=== PATIENT | male | born 1960 | race Caucasian/White ===

== ENCOUNTER 2018-01-18 14:44 | Outpatient (CLI) | payer MEDICARE, SELFPAY ==
--- NOTE | 2018-01-18 13:38 | DI.RAD_ITS ---
SYMPTOMS/DIAGNOSIS: PAIN, S/P FALL, ANKYLOSING SPONDYLITIS, DORSALGIA, CERVICALGIA, M54.9, M45.9, M54.2 CERVICAL SPINE: Five views were obtained. The intervertebral disc spaces are well maintained. The alignment appears within normal limits. Minimal endplate and facet spurring noted consistent with the patient's age. The neural foramina appear well maintained on oblique views. CONCLUSION: Essentially negative examination of the cervical spine. THORACIC SPINE: Three views were obtained. There is mild disc space narrowing throughout the thoracic spine. Minimal endplate spurring noted throughout the thoracic spine. No evidence of compression fracture. CONCLUSION: Essentially negative thoracic spine except for degenerative changes. LUMBOSACRAL SPINE: Five views were obtained. The patient reportedly has a history of ankylosing spondylitis. There appears to be bilateral SI joint fusion, incomplete on the left. The intervertebral disc spaces are well maintained. There is an anterior osteophyte of L 4 vertebral body superior body endplate which may be associated with an old injury. Otherwise the bones appear essentially intact. No evidence of spondylolysis or spondylolisthesis. CONCLUSION: Bilateral SI joint fusion in a patient with history of ankylosing spondylitis. No significant additional findings.
== END 2018-01-18 15:04 ==
PROVIDERS: PCP Nurse Practitioner; Visit Provider Nurse Practitioner
DX: S19.9XXA Unspecified injury of neck, initial encounter (principal); M45.8 Ankylosing spondylitis sacral and sacrococcygeal region; M51.14 Intervertebral disc disorders with radiculopathy, thoracic region; M25.78 Osteophyte, vertebrae
CPT/HCPCS: 72050; 72072; 72110

== ENCOUNTER 2018-03-23 02:01 | Outpatient (CLI) | payer MEDICARE, SELFPAY ==
[2018-03-23 08:38] LABS: HCT 41.3 % (40.0-50.0); Mean Corp. HGB Concentration 33.9 g/dL (32.0-36.0); Mean Corpuscular Hemoglobin 31.2 pg (27.0-33.0); Mean Platelet Volume 10.7 fL (8.0-11.0); Platelet Count 182 x1000/uL (130-400); RBC 4.49 m/cumm (4.50-6.00); White Blood Cell Count 5.11 k/cumm (4.4-10.8)
[2018-03-23 09:51] LABS: ALT 30 U/L (12-78); AST 23 U/L (15-37); Albumin 3.9 g/dL (3.4-5.0); Alkaline Phosphatase 111 U/L (46-116); Anion Gap 7.6 mmol/L (3-11); BUN 17 mg/dL (7-18); Bilirubin, Total 0.4 mg/dL (0.2-1.0); CO2 31.4 mmol/L (21.0-32.0); CREATININE 1.08 mg/dL (0.70-1.30); Calcium 8.9 mg/dL (8.5-10.1); Chloride 105 mmol/L (98-107); Glucose 79 mg/dL (70-100); Potassium 4.2 mmol/L (3.5-5.1); Sodium 144 mmol/L (136-145); Total Protein 7.3 g/dL (6.4-8.2)
[2018-03-23 10:04] LABS: ESR 24 MM/HR (1-20)
== END 2018-03-23 02:21 ==
PROVIDERS: PCP Nurse Practitioner; Visit Provider Internal Medicine Rheumatology
DX: M45.9 Ankylosing spondylitis of unspecified sites in spine (principal); Z79.899 Other long term (current) drug therapy
CPT/HCPCS: 36415; 80053; 85027; 85652; 86140

== ENCOUNTER 2018-07-07 08:05 | Emergency (ER) | payer MEDICARE, SELFPAY ==
[2018-07-07 08:10] VITALS: BP 132/85; PULSE 80; RESP 16; TEMP 36.4; O2SAT 98
--- NOTE | 2018-07-07 08:39 | ED.GENADUL_ITS ---
Discharge Plan Disposition Patient Disposition: HOME Condition: Improving Discharge Details Chief Complaint: Nausea/Vomit/Diar Clinical Impression: Gastroenteritis Primary Care Provider: Maureen Lua ED Provider: Silvestre Rahman Home Meds and New Rx's Prescriptions: New ondansetron 4 mg tablet,disintegrating 4 mg PO QID PRN (Reason: nausea and vomiting) Qty: 12 RF: 0 Continued hydrocodone-acetaminophen 5-325 mg tablet 1 tab PO Q4H MDD 6 tabs PRN (Reason: pain) Qty: 120 RF: 0 zolpidem [Ambien] 5 mg tablet 5 mg PO HS PRN (Reason: insomnia) Qty: 90 RF: 1 cyanocobalamin (vitamin B-12) 1,000 MCG/1 ML solution 1,000 mcg IM Q28 DAYS Qty: 1 RF: 0 indomethacin 75 MG capsule, extended release 75 mg PO DAILY RF: 0 aspirin 81 MG tablet,chewable 81 mg PO DAILY RF: 0 lisinopril 10 MG tablet 10 mg PO DAILY Qty: 90 RF: 3 Dexilant 60 MG capsule,biphase delayed releas 60 mg PO DAILY Qty: 90 RF: 3 simvastatin 40 MG tablet 40 mg PO DAILY Qty: 90 RF: 3 Cosentyx Sensoready Pen 150 mg IM DIRECTED RF: 0 Discharge Instructions Instructions: Gastroenteritis (ED) Additional Instructions: Return to the emergency department for any new or significant worsening of symptoms or further concerns you may have. Otherwise slowly advance her diet as tolerated and follow-up with your primary care provider if not improving. Referrals: Maureen Lua, EQUIPMENT WORKER [Primary Care Provider] - (As needed for reassessment) Discharge Data Discharge Date/Time-TO BE ENTERED AT DEPARTURE: 07/07/18 10:30 Medical Decision Making Patient presenting the emergency department for chief complaint of abdominal pain, nausea vomiting diarrhea. Patient states that this is been going on since Tuesday and has not improved. Patient does have chronic pain syndrome and has not been able to take his normally prescribed medications causing his back pain to worsen also causing mild associated headache which patient states is normal for him. Patient denies any fever chills, other cold symptoms, urinary symptoms or flank pain. Physical exam shows right lower quadrant tenderness and McBurney's point along with roving sign otherwise soft abdomen with no guarding or rigidity noted. Plan to do labs, CT abdomen pelvis, pending results patient given morphine Zofran and IV fluids. Labs are reviewed and show no specific findings or diagnostic. CT imaging was discussed with radiologist and shows nonspecific signs of enteritis otherwise no acute appendicitis or other acute surgical findings. Patient was reassessed and states improvement of symptoms. Patient was p.o. challenged and was able to tolerate intake of crackers and amairani vilma. Given this patient was prescribed ODT Zofran to use at home. Return precautions discussed. After discussion of diagnosis and plan of care patient is no further needs, questions, or concerns and states clear understanding to return to the emergency department for any worsening symptoms. HPI General Mode of arrival: ambulatory . Date/Time Provider Initiated Documentation: 07/07/18 08:15 . Limitations to Documentation: no limitations . Information obtained by: patient and RN notes reviewed . History of Present Illness 57 year old M presents to the emergency department with the chief complaint of Abdominal pain, nausea vomiting diarrhea, described as mild, with intensity rated at 3. Quality is described as aching, and is localized to the abdomen. Patient started experiencing this day(s) (4) and it has been constant. No relieving factors improve symptom(s), Eating worsens symptoms . Patient did receive the following treatments prior to arrival, other (Pepto- Bismol, Carafate) Related Data Home Medications Medication Instructions Recorded Confirmed cyanocobalamin (vitamin B-12) 1,000 mcg IM Q28 DAYS #1 vial 06/07/12 07/07/18 indomethacin 75 mg PO DAILY tab-cap 10/14/15 07/07/18 aspirin 81 mg PO DAILY tab-cap 04/26/17 07/07/18 lisinopril 10 mg PO DAILY #90 tab-cap 07/12/17 07/07/18 Dexilant 60 mg PO DAILY #90 tab-cap 08/09/17 07/07/18 simvastatin 40 mg PO DAILY #90 tab 08/09/17 07/07/18 hydrocodone 5 mg-acetaminophen 325 1 tab PO Q4H PRN #120 tab MDD 6 04/27/18 07/07/18 mg tablet tabs zolpidem 5 mg tablet 5 mg PO HS PRN #90 tab-cap 04/27/18 07/07/18 Cosentyx Sensoready Pen 150 mg IM DIRECTED 07/07/18 07/07/18 ondansetron 4 mg PO QID PRN #12 tab 07/07/18 Previous Rx's Medication Instructions Recorded lisinopril 10 mg PO DAILY #90 tab-cap 07/12/17 Dexilant 60 mg PO DAILY #90 tab-cap 08/09/17 simvastatin 40 mg PO DAILY #90 tab 08/09/17 hydrocodone 5 mg-acetaminophen 325 1 tab PO Q4H PRN #120 tab MDD 6 04/27/18 mg tablet tabs zolpidem 5 mg tablet 5 mg PO HS PRN #90 tab-cap 04/27/18 ondansetron 4 mg PO QID PRN #12 tab 07/07/18 Allergies Allergy/AdvReac Type Severity Reaction Status Date / Time No Known Allergies Allergy Unverified 07/07/18 08:18 General Stated Complaint: Nausea/Vomit/Diar CIARA: 3 Review of Systems Constitutional Denies chills, Denies fever(s) and Reports poor appetite Cardiovascular Denies chest pain and Denies dyspnea Respiratory Denies cough and Denies dyspnea Gastrointestinal Reports as per HPI, Reports abdominal pain, Denies melena, Denies change in bowel habits, Denies constipation, Reports diarrhea, Reports nausea and Reports vomiting Genitourinary Denies hematuria, Denies difficulty urinating and Denies flank pain Integumentary/Breasts Denies rash PFSH Medical History Ankylosing spondylitis (Chronic 06/14/12) Raynaud's syndrome (Chronic 01/04/13) Reflux esophagitis (Chronic 06/14/12) 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) Osteoarth NOS-unspec (Chronic 06/08/11) FLORIN (obstructive sleep apnea) (Chronic 04/14/17) Hyperlipidemia (Chronic 06/14/12) Hematuria (Chronic 07/26/14) Chronic pain syndrome (Chronic 06/14/12) Other vitamin B12 deficiency anemia (Chronic 06/14/12) Anemia, unspecified (Chronic 06/14/12) Surgical History Colonoscopy - IV Sedation (04/23/13) cystourethroscopy (07/26/14) Family History Father Heart disease Mother History of Coumadin therapy Social History Smoking/Tobacco Use Status: Never Second Hand Exposure: No Alcohol Intake: former Drug use: Never Substance use type: does not use Foster care: No Household members: other Details: 2 What type of physical activity do you participate in: walking Duration: 30-45 minutes/day Frequency: 3-4 times per week Do you feel safe at home: Yes Do you feel safe in your relationship?: Yes Exam Const General: cooperative Orientation: alert, awake and oriented x3 Resp Effort & Inspection: normal respiratory effort and able to speak in complete sentences Auscultation: clear to auscultation bilaterally Cardio Rate: regular rate Rhythm: regular rhythm Heart Sounds: S1 normal and S2 normal GI Palpation: soft, no hepatosplenomegaly, not firm, no guarding, no masses, no pulsatile masses, not rigid, no splenomegaly and tender in the RLQ, at McBurney's point and Rovsing's sign positive; psoas sign negative and with no rebound tenderness Auscultation: hypoactive bowel sounds Back/Spine/Pelvis Back: no CVA tenderness Neuro General: alert, awake, oriented x3, gait normal and moves all extremities Course Vital Signs Temperature 36.4 C L 07/07/18 08:10 Pulse 80 07/07/18 08:10 Respiratory Rate 16 07/07/18 08:10 Blood Pressure 132/85 07/07/18 08:10 Pulse Oximetry 98 07/07/18 08:10 Temperature 36.4 C L 07/07/18 08:10 Temperature Source Skin 07/07/18 08:10 Pulse 80 07/07/18 08:10 Respiratory Rate 16 07/07/18 08:10 Respiratory Effort Non-Labored 07/07/18 08:12 Blood Pressure 132/85 07/07/18 08:10 Blood Pressure Position Sitting 07/07/18 08:10 Pulse Oximetry 98 07/07/18 08:10 Oxygen Delivery Method Room Air 07/07/18 08:10 Oxygen Flow Rate 0 07/07/18 08:10 Pain Level 3 07/07/18 08:10
[2018-07-07 08:46] LABS: Absolute Basophil Count 0.01 k/cumm (0.0-0.2); Absolute Eosinophil Count 0.08 k/cumm (0.0-0.7); Absolute Lymphocyte Count 0.87 k/cumm (1.2-3.4); Absolute Monocyte Count 0.69 k/cumm (0.11-0.7); Absolute Neutrophil Count 2.66 k/cumm (1.2-6.7); Basophils % 0.2; Eosinophils % 1.9; HCT 46.3 % (40.0-50.0); HGB 16.2 g/dL (13.5-17.5); Lymphocytes % 20.2; Mean Corpuscular Hemoglobin 31.7 pg (27.0-33.0); Mean Corpuscular Volume 90.6 fL (80-95); Mean Platelet Volume 10.9 fL (8.0-11.0); Neutrophils % 61.7; Platelet Count 184 x1000/uL (130-400); RBC 5.11 m/cumm (4.50-6.00); RBC Distribution Width 12.8 % (11.8-14.1); White Blood Cell Count 4.31 k/cumm (4.4-10.8)
[2018-07-07] MEDS: Normal Saline 1,000 ML 1000 ML IV (08:55)
[2018-07-07] MEDS: Ondansetron 4 MG/2 ML VIAL IVP (08:55)
[2018-07-07 08:58] LABS: ALT 44 U/L (12-78); AST 34 U/L (15-37); Albumin 4.2 g/dL (3.4-5.0); Alkaline Phosphatase 122 U/L (46-116); Anion Gap 7.7 mmol/L (3-11); BUN 16 mg/dL (7-18); Bilirubin, Total 0.6 mg/dL (0.2-1.0); CO2 30.3 mmol/L (21.0-32.0); Chloride 98 mmol/L (98-107); Glucose 112 mg/dL (70-100); Lipase 72 U/L (73-393); Sodium 136 mmol/L (136-145); Total Protein 8.5 g/dL (6.4-8.2)
[2018-07-07 09:12] LABS: Bilirubin Negative (Negative); Blood Trace-intact (Negative); Clarity Clear; Glucose Negative (Negative); Ketones Negative (Negative); Leukocyte Esterase Negative (Negative); Nitrite Negative (Negative); Urobilinogen 0.2 EU/dL (Up TO 0.2)
[2018-07-07] MEDS: Omnipaque 350 MG/ML 100 ML BTL IJ (09:19)
--- NOTE | 2018-07-07 09:22 | DI.CT_ITS ---
SYMPTOM/DIAGNOSIS: RLQ ABD PAIN ABDOMEN AND PELVIC CT: CT examination of the abdomen and pelvis was performed with a bolus infusion of 91 cc's of Omnipaque 350. Images obtained through the lung bases are unremarkable. Liver, spleen and pancreas appear normal. No biliary dilatation is seen. Gallbladder is contracted. Abdominal aorta is of normal diameter and no major vascular abnormality is seen. No abdominal wall hernia is seen. No abdominal or pelvic adenopathy is seen. Appendix is normal. There are a fluid filled loops of small bowel in the mid abdomen which are nonspecific, findings could be associated with enteritis. No evidence of bowel obstruction. No evidence of diverticulitis. Adrenals appear normal bilaterally. There are bilateral renal cysts which appear to have been present on previous CT of 10/04/12. There are non obstructing right renal calculi which were also present on the previous examination. No evidence of hydronephrosis or ureterolithiasis. CONCLUSION: No evidence of acute intra-abdominal process. Non obstructing right renal calculi noted.
[2018-07-07 09:24] LABS: Bacteria Negative HPF (Negative); Epithelial Cells Negative HPF (Negative); Other Cells Negative (Negative); RBC 0-2 (0-2); WBC 0-2 HPF (0-5)
[2018-07-07 09:25] LABS: C & S Indicated? No; Casts Negative LPF (Negative); Crystals Rare Calcium Oxalate HPF (Negative); Mucus Negative (Negative)
[2018-07-07 10:29] VITALS: BP 124/78; PULSE 67; RESP 18; O2SAT 98
== END 2018-07-07 10:30 | disposition home or self-care (01) ==
PROVIDERS: Emergency Provider Nurse Practitioner Family; PCP Nurse Practitioner
DX: K52.9 Noninfective gastroenteritis and colitis, unspecified (principal)
CPT/HCPCS: 36415; 80053; 83690; 96361; 96374; 96375; 99284; 74177; 81003; 81015; 85025; J2405; J3490

== ENCOUNTER 2018-07-13 02:15 | Outpatient (CLI) | payer MEDICARE, SELFPAY ==
[2018-07-13 08:49] LABS: Cholesterol 145 mg/dL (50-200); HDL Cholesterol 39 mg/dL (40-60); LDL CHOLESTEROL 98 mg/dL (<100); Triglyceride 34 mg/dL (30-150)
== END 2018-07-13 02:35 ==
PROVIDERS: PCP Nurse Practitioner; Visit Provider Nurse Practitioner
DX: E78.5 Hyperlipidemia, unspecified (principal)
CPT/HCPCS: 36415; 80061; 83721

== ENCOUNTER 2018-08-22 01:48 | Outpatient (CLI) | payer MEDICARE, SELFPAY ==
[2018-08-22 07:56] LABS: Abs Immature Grans 0.01 k/cumm (0.0-0.09); Absolute Basophil Count 0.01 k/cumm (0.0-0.2); Absolute Lymphocyte Count 1.47 k/cumm (1.2-3.4); Absolute Monocyte Count 0.55 k/cumm (0.11-0.7); Absolute Neutrophil Count 5.74 k/cumm (1.2-6.7); Basophils % 0.1; Eosinophils % 1.3; HCT 41.4 % (40.0-50.0); HGB 14.2 g/dL (13.5-17.5); Immature Grans % 0.1; Lymphocytes % 18.7; Mean Corp. HGB Concentration 34.3 g/dL (32.0-36.0); Mean Corpuscular Hemoglobin 31.6 pg (27.0-33.0); Mean Corpuscular Volume 92.2 fL (80-95); Neutrophils % 72.8; Platelet Count 195 x1000/uL (130-400); RBC 4.49 m/cumm (4.50-6.00); RBC Distribution Width 12.8 % (11.8-14.1); White Blood Cell Count 7.88 k/cumm (4.4-10.8)
[2018-08-22 08:59] LABS: ALT 25 U/L (12-78); AST 18 U/L (15-37); Albumin 4.2 g/dL (3.4-5.0); Alkaline Phosphatase 116 U/L (46-116); Anion Gap 11.2 mmol/L (3-11); BUN 19 mg/dL (7-18); Bilirubin, Total 0.5 mg/dL (0.2-1.0); C-Reactive Protein 0.54 mg/dL (0.0-0.3); CO2 28.8 mmol/L (21.0-32.0); CREATININE 1.12 mg/dL (0.70-1.30); Calcium 9.1 mg/dL (8.5-10.1); Chloride 105 mmol/L (98-107); Glucose 116 mg/dL (70-100); Potassium 3.9 mmol/L (3.5-5.1); Sodium 145 mmol/L (136-145); Total Protein 7.3 g/dL (6.4-8.2)
[2018-08-22 11:47] LABS: ESR 9 MM/HR (1-20)
[2018-08-25 17:02] LABS: HLA-B27 Result Positive
== END 2018-08-22 02:08 ==
PROVIDERS: PCP Nurse Practitioner; Visit Provider Internal Medicine
DX: M45.9 Ankylosing spondylitis of unspecified sites in spine (principal)
CPT/HCPCS: 36415; 80053; 85652; 86812; 85025; 86140

== ENCOUNTER 2018-12-20 01:36 | Outpatient (CLI) | payer MEDICARE, SELFPAY ==
--- NOTE | 2018-12-20 07:45 | DI.RAD_ITS ---
EXAM: XR HAND LT COMPLETE INDICATION: PAIN BOTH HANDS, M79.641,M79.642, INFLAMMATORY ARTHROPATHY,M19.90,MORNING. COMPARISON: ARTHITIS SERIES-LUTHER HAND WRIST from 03/13/2015 TECHNIQUE: 2D digital imaging was performed. FINDINGS: There are mild degenerative changes of the 2nd metacarpal phalangeal joint. There are some subchondr al cysts. The bones appear normally mineralized. Carpal region is unremarkable. IMPRESSION: Degenerative changes of the 2nd metacarpal phalangeal joint.
--- NOTE | 2018-12-20 07:45 | DI.RAD_ITS ---
EXAM: XR THORACIC SPINE COMPLETE INDICATION: MID BACK PAIN,JONT STIFFNESS,M25.60,INFLAMMATORY ARTHROPATHY,M19.90. COMPARISON: XR thoracic spine complete from 01/18/2018 TECHNIQUE: 2D digital imaging was performed. FINDINGS: The alignment is normal. No bony erosions are seen. There are minimal endplate osteophytes. No co mpression fractures are seen. IMPRESSION: Minimal degenerative changes.
--- NOTE | 2018-12-20 07:45 | DI.RAD_ITS ---
EXAM: XR HAND RT COMPLETE INDICATION: PAIN BOTH HANDS, M79.641,M79.642,MORNING JOINT STIFFNESS, INFLAMMATORY. COMPARISON: ARTHITIS SERIES-LUTHER HAND WRIST from 03/13/2015 TECHNIQUE: 2D digital imaging was performed. FINDINGS: There is no evidence of bony erosions or productive changes. The joint spaces are well maintained. The mineralization appears normal. IMPRESSION: Negative right hand.
--- NOTE | 2018-12-20 07:45 | DI.RAD_ITS ---
EXAM: XR CERVICAL SPINE COMP 4-5V INDICATION: INFLAMMATORY ARTHROPATHY,MORNING JOINT STIFFNESS,M25.60,M19.90,NECK PAIN,. COMPARISON: XR cervical spine comp 4-5V from 01/18/2018 TECHNIQUE: 2D digital imaging was performed. FINDINGS: The alignment is normal. There is mild narrowing of the C2-3 and C3-4 discs. There are small endpl ate osteophytes at these levels. There is no neural foraminal narrowing. No bony erosions are seen. There is no prevertebral soft tissue swelling. IMPRESSION: Mild degenerative disc changes at C2-3 and C 3-4.
--- NOTE | 2018-12-20 09:00 | DI.MRI_ITS ---
EXAM: MR PELVIS WO CLINICAL HISTORY: BILAT HIP PAIN, M25.551,M25.552, INFLAMMATORY ARTHROPATHY, HIGH RISK MEDICATION US E, Z79.899 TECHNIQUE: Multiplanar multisequence MRI was performed. COMPARISON: XR lumbar spine complete from 01/18/2018 XR thoracic spine complete from 01/18/2018 FINDINGS: There is fusion across the right SI joint and partial fusion seen in the left SI joint. There is n o significant increased signal within the SI joints. The hip joints show small amount of fluid. The marrow signal of the femoral heads and adjacent acetabula appear normal. The pubic symphysis is unr emarkable. IMPRESSION: Partial fusion across both SI joints, right greater than left. No abnormality is seen of the hips o ther than a small amount of joint fluid.
--- NOTE | 2018-12-20 09:01 | DI.MRI_ITS ---
EXAM: MR LUMBAR SPINE WO CLINICAL HISTORY: LOW BACK PAIN WITH ,M54.5,G89.29,MORNING JOINT STIFFNESS, HIGH RISK MEDICATION U SE, Z79.899, INFLAMMATORY ARTHROPATHY TECHNIQUE: T1 and T2 and stir sagittal and T1 and T2 axial and T1 coronal sequences were performed. COMPARISON: CT ABDOMEN PELVIS W from 07/07/2018 FINDINGS: Hemangiomas are seen in the T12 and L1 vertebral bodies. The SI joints are partially included on the exam. There is apparent fusion across the right SI joint and partial fusion of the left SI joint . No abnormal marrow signal is seen within the vertebral bodies. There is no evidence of disc herni ation, central canal stenosis or significant neural foraminal narrowing. The conus medullaris appear s normal. The aorta is normal in diameter. IMPRESSION: Fusion of the SI joints right greater than left, consistent with the patient's history of ankylosing spondylitis. No specific vertebral body abnormalities are identified.
== END 2018-12-20 01:56 ==
PROVIDERS: PCP Nurse Practitioner; Visit Provider Internal Medicine
DX: M79.641 Pain in right hand (principal); M25.641 Stiffness of right hand, not elsewhere classified; M79.642 Pain in left hand; M25.642 Stiffness of left hand, not elsewhere classified; M19.042 Primary osteoarthritis, left hand; M54.2 Cervicalgia; M50.31 Other cervical disc degeneration, high cervical region; M54.6 Pain in thoracic spine; M47.813 Spondylosis without myelopathy or radiculopathy, cervicothoracic region; M54.5 Low back pain; Z79.899 Other long term (current) drug therapy; Z98.1 Arthrodesis status; M45.6 Ankylosing spondylitis lumbar region; M25.551 Pain in right hip; M25.552 Pain in left hip
CPT/HCPCS: 72050; 72072; 72148; 72195; 73130

== ENCOUNTER 2019-01-16 01:02 | Outpatient (CLI) | payer MEDICARE, SELFPAY ==
[2019-01-16 09:09] LABS: Abs Immature Grans 0.01 k/cumm (0.0-0.09); Absolute Basophil Count 0.01 k/cumm (0.0-0.2); Absolute Eosinophil Count 0.09 k/cumm (0.0-0.7); Absolute Lymphocyte Count 1.22 k/cumm (1.2-3.4); Absolute Monocyte Count 0.31 k/cumm (0.11-0.7); Absolute Neutrophil Count 3.12 k/cumm (1.2-6.7); Basophils % 0.2; Eosinophils % 1.9; HCT 41.8 % (40.0-50.0); HGB 14.2 g/dL (13.5-17.5); Immature Grans % 0.2; Lymphocytes % 25.6; Mean Corpuscular Hemoglobin 31.1 pg (27.0-33.0); Mean Corpuscular Volume 91.5 fL (80-95); Mean Platelet Volume 11.1 fL (8.0-11.0); Monocytes % 6.5; Neutrophils % 65.6; Platelet Count 196 x1000/uL (130-400); RBC 4.57 m/cumm (4.50-6.00); RBC Distribution Width 12.6 % (11.8-14.1); White Blood Cell Count 4.76 k/cumm (4.4-10.8)
[2019-01-16 09:45] LABS: ALT 28 U/L (16-63); AST 21 U/L (15-37); Albumin 4.1 g/dL (3.4-5.0); Alkaline Phosphatase 111 U/L (46-116); Bilirubin, Total 0.4 mg/dL (0.2-1.0); C-Reactive Protein 0.11 mg/dL (0.0-0.3); CREATININE 1.07 mg/dL (0.70-1.30); Total Protein 7.4 g/dL (6.4-8.2)
[2019-01-16 09:59] LABS: ESR 9 mm/hr (1-20)
[2019-01-17 11:14] LABS: Hepatitis B Surface Ag Negative (Negative)
[2019-01-17 11:58] LABS: Hepatitis C Ab w Rflx HCV PCR Negative (Negative)
[2019-01-17 11:59] LABS: Hep B Core Antibody Negative (Negative)
[2019-01-17 14:12] LABS: HIV-1/2 Ag & Ab Screen Negative (Negative)
[2019-01-18 14:04] LABS: Hepatitis B Surface Ab Negative (See Note)
[2019-01-19 15:27] LABS: TB Interpretation Negative (Negative)
[2019-01-19 16:20] LABS: HBs Antibody, Quant <3.1 mIU/mL
== END 2019-01-16 01:22 ==
PROVIDERS: PCP Nurse Practitioner; Visit Provider Internal Medicine
DX: M54.5 Low back pain (principal); G89.29 Other chronic pain; M54.89 Other dorsalgia; M54.6 Pain in thoracic spine
CPT/HCPCS: 36415; 80076; 85652; 86704; 86706; 86803; 87340; 87389; 82565; 85025; 86140; 86480

== ENCOUNTER 2019-04-10 08:32 | Outpatient (CLI) | payer MEDICARE, SELFPAY ==
[2019-04-10 11:56] LABS: ALT 27 U/L (16-63); AST 18 U/L (15-37); Albumin 4.4 g/dL (3.4-5.0); Alkaline Phosphatase 102 U/L (46-116); Anion Gap 8.8 mmol/L (3-11); BUN 15 mg/dL (7-18); Bilirubin, Total 0.5 mg/dL (0.2-1.0); CO2 31.2 mmol/L (21.0-32.0); CREATININE 1.12 mg/dL (0.70-1.30); Calcium 9.2 mg/dL (8.5-10.1); Calculated LDL 106 mg/dL (<100); Chloride 104 mmol/L (98-107); Cholesterol 164 mg/dL (<200); Glucose 112 mg/dL (74-106); HDL Cholesterol 45 mg/dL (40-60); Potassium 4.3 mmol/L (3.5-5.1); Sodium 144 mmol/L (136-145); TSH 1.42 uIU/mL (0.36-3.74); Total Protein 7.5 g/dL (6.4-8.2); Triglyceride 69 mg/dL (<150)
[2019-04-10 11:58] LABS: Folate > 20.0 ng/mL (8.6-20.0); Vitamin B12 > 2000 pg/mL (193-986)
[2019-04-11 10:57] LABS: Syphilis Serology (RPR) Negative (Negative)
[2019-04-11 14:24] LABS: Thyroglobulin Antibody <15 U/mL (<=60); Thyroperoxidase Antibody <28 U/mL (<=60)
== END 2019-04-10 08:52 ==
PROVIDERS: PCP Nurse Practitioner; Visit Provider Nurse Practitioner
DX: I10 Essential (primary) hypertension (principal); E78.5 Hyperlipidemia, unspecified; G31.84 Mild cognitive impairment of uncertain or unknown etiology
CPT/HCPCS: 36415; 80053; 80061; 86376; 82607; 82746; 84443; 86592

== ENCOUNTER 2019-08-28 01:22 | Outpatient (CLI) | payer MEDICARE, MEDICAID, SELFPAY ==
[2019-08-28 09:50] LABS: Absolute Basophil Count 0.01 k/cumm (0.0-0.2); Absolute Eosinophil Count 0.07 k/cumm (0.0-0.7); Absolute Lymphocyte Count 1.21 k/cumm (1.2-3.4); Absolute Monocyte Count 0.32 k/cumm (0.11-0.7); Absolute Neutrophil Count 2.21 k/cumm (1.2-6.7); Basophils % 0.3; Eosinophils % 1.8; HCT 40.8 % (40.0-50.0); Lymphocytes % 31.7; Mean Corp. HGB Concentration 34.3 g/dL (32.0-36.0); Mean Corpuscular Hemoglobin 31.8 pg (27.0-33.0); Mean Corpuscular Volume 92.7 fL (80-95); Mean Platelet Volume 11.1 fL (8.0-11.0); Monocytes % 8.4; Neutrophils % 57.8; Platelet Count 222 x1000/uL (130-400); RBC Distribution Width 12.5 % (11.8-14.1); White Blood Cell Count 3.82 k/cumm (4.4-10.8)
[2019-08-28 10:09] LABS: ALT 22 U/L (16-63); AST 20 U/L (15-37); Albumin 4.4 g/dL (3.4-5.0); Alkaline Phosphatase 113 U/L (46-116); BUN 15 mg/dL (7-18); Bilirubin, Direct 0.13 mg/dL (0.00-0.20); Bilirubin, Total 0.5 mg/dL (0.2-1.0); CREATININE 1.17 mg/dL (0.70-1.30); Calcium 8.9 mg/dL (8.5-10.1); Chloride 103 mmol/L (98-107); Glucose 109 mg/dL (74-106); Potassium 4.2 mmol/L (3.5-5.1); Sodium 140 mmol/L (136-145); Total Protein 7.4 g/dL (6.4-8.2)
[2019-08-28 10:26] LABS: C-Reactive Protein < 0.05 mg/dL (0.0-0.3)
[2019-08-28 10:27] LABS: ESR 8 mm/hr (1-20)
[2019-08-29 09:47] LABS: HBs Antibody, Quant <3.1 mIU/mL (See Note); Hepatitis B Surface Ab Negative (See Note); Hepatitis B Surface Ag Negative (Negative)
[2019-08-29 11:04] LABS: HIV-1/2 Ag & Ab Screen Negative (Negative); Hepatitis C Ab w Rflx HCV PCR Negative (Negative)
[2019-08-31 13:41] LABS: TB Interpretation Negative (Negative)
== END 2019-08-28 01:42 ==
PROVIDERS: PCP Nurse Practitioner; Visit Provider Internal Medicine
DX: M19.90 Unspecified osteoarthritis, unspecified site (principal); M54.5 Low back pain; G89.29 Other chronic pain; M54.89 Other dorsalgia; M54.2 Cervicalgia; M54.6 Pain in thoracic spine; Z79.899 Other long term (current) drug therapy
CPT/HCPCS: 36415; 80053; 80076; 85652; 86706; 86803; 87340; 87389; 85025; 86140; 86480; 87350

== ENCOUNTER 2019-09-17 09:54 | Outpatient (CLI) | payer MEDICARE, SELFPAY ==
[2019-09-19 09:54] LABS: SARS-CoV-2 RNA Undetected (Undetected); SARS-CoV-2 Specimen Source Nasopharynx
== END 2019-09-17 10:14 ==
PROVIDERS: PCP Nurse Practitioner; Visit Provider Nurse Practitioner
DX: Z03.818 Encounter for observation for suspected exposure to other biological agents ruled out (principal)
CPT/HCPCS: U0003

== ENCOUNTER 2019-09-24 01:38 | Outpatient (CLI) | payer MEDICARE, MEDICAID, SELFPAY ==
--- NOTE | 2019-09-24 12:15 | DI.RAD_ITS ---
EXAM: XR CHEST 2V PA LATERAL CLINICAL HISTORY: Empty feeling in chest at times. Not exertional R05 COUGH, -COVID 09/17/19 TECHNIQUE: 2D digital imaging was performed. COMPARISON: No exams were available for comparison FINDINGS: MEDIASTINUM: Normal. HEART: Normal. PULMONARY VASCULATURE: Normal. LUNGS: Clear. PLEURAL SPACE: No pleural effusion or pneumothorax. BONE:Normal. OTHER FINDINGS:Normal. IMPRESSION: No acute pulmonary findings. DATA REPOSITORY: RADIATION DOSE DELIVERED:
== END 2019-09-24 01:58 ==
PROVIDERS: PCP Nurse Practitioner; Visit Provider Nurse Practitioner
DX: R05 Cough (principal)
CPT/HCPCS: 71046

== ENCOUNTER 2020-04-14 03:25 | Outpatient (CLI) | payer MEDICARE, MEDICAID, SELFPAY ==
[2020-04-14 07:40] LABS: Abs Immature Grans 0.01 10^3/uL (0.0-0.06); Absolute Basophil Count 0.02 10^3/uL (0.0-0.2); Absolute Eosinophil Count 0.12 10^3/uL (0.0-0.7); Absolute Lymphocyte Count 1.86 10^3/uL (1.2-3.4); Absolute Monocyte Count 0.41 10^3/uL (0.1-0.8); Absolute Neutrophil Count 2.87 10^3/uL (1.2-6.7); Basophils % 0.4; Eosinophils % 2.3; HCT 41.6 % (40.0-50.0); HGB 14.3 g/dL (13.5-17.5); Immature Grans % 0.2; Lymphocytes % 35.2; MCH 31.2 pg (27.0-33.0); MCHC 34.4 % (32.0-36.0); MCV 90.6 fL (80-95); MPV 10.8 fL (8.0-11.0); Monocytes % 7.8; Neutrophils % 54.1; Nucleated RBC 0 %; Platelet Count 180 10^3/uL (130-400); RBC 4.59 10^6/uL (4.36-5.78); RDW 12.6 % (11.8-14.1); RDW-SD 41.1 fL; WBC 5.29 10^3/uL (4.4-10.8)
[2020-04-14 09:06] LABS: ALT 28 U/L (16-63); AST 20 U/L (15-37); Alkaline Phosphatase 111 U/L (46-116); Anion Gap 8.9 mmol/L (3-11); BUN 16 mg/dL (7-18); Bilirubin, Total 0.5 mg/dL (0.2-1.0); CO2 30.1 mmol/L (21.0-32.0); CREATININE 1.2 mg/dL (0.70-1.30); Calculated LDL 167 mg/dL (<100); Chloride 104 mmol/L (98-107); Cholesterol 228 mg/dL (<200); Glucose 103 mg/dL (74-106); HDL Cholesterol 46 mg/dL (40-60); Potassium 4.2 mmol/L (3.5-5.1); Sodium 143 mmol/L (136-145); TSH (W/Ref FT4) 1.28 uIU/mL (0.36-3.74); Total Protein 7.4 g/dL (6.4-8.2); Triglyceride 78 mg/dL (<150)
[2020-04-14 09:13] LABS: Hemoglobin A1C 5.2 % (<5.7)
== END 2020-04-14 03:26 | disposition home or self-care (01) ==
LOC: LBO 03:25
PROVIDERS: PCP Nurse Practitioner; Visit Provider Nurse Practitioner
DX: E78.5 Hyperlipidemia, unspecified (principal); I10 Essential (primary) hypertension; R73.01 Impaired fasting glucose; R53.83 Other fatigue; E53.8 Deficiency of other specified B group vitamins; D64.9 Anemia, unspecified; M45.9 Ankylosing spondylitis of unspecified sites in spine; G47.33 Obstructive sleep apnea (adult) (pediatric)
CPT/HCPCS: 36415; 80053; 80061; 83036; 84443; 85025

== ENCOUNTER 2020-04-28 02:12 | Outpatient (CLI) | payer MEDICARE, MEDICAID, SELFPAY ==
--- NOTE | 2020-04-28 | DI.US_ITS ---
EXAM: US SOFT TISSUE EXTREMITY CLINICAL HISTORY: LUMP LT HIP, ? LIPOMA. TECHNIQUE: Ultrasound was performed using standard protocol. COMPARISON: US Cardiac from 03/31/2017 US US SOFT TISSUE EXTREMITY from 04/28/2020 FINDINGS: Sonographic assessment utilizing grayscale and color Doppler imaging was performed and targeted to th e area of clinical concern. Images are of the right anterior forearm. Reveals a 1.2 by 0.4 cm elliptical finding which has appe arance of a probable benign lipoma. IMPRESSION: 12 x 4 millimeter probable lipoma. Recommend repeat ultrasound in 6 months to ensure stability, maira ier if clinically indicated. DATA REPOSITORY:
--- NOTE | 2020-04-28 | DI.US_ITS ---
EXAM: US SOFT TISSUE EXTREMITY CLINICAL HISTORY: LUMP RT HIP, ? LIPOMA. TECHNIQUE: Ultrasound was performed using standard protocol. COMPARISON: No exams were available for comparison FINDINGS: Ultrasound of the area of concern in the proximal right thigh was performed. There is a well-defined 2.5 x 1.8 x 0.7 cm findings correspond to the palpable finding. This has radha earance of a probable lipoma. IMPRESSION: Probable lipoma. Recommend repeat ultrasound in 6 months to ensure stability, earlier if clinically indicated. DATA REPOSITORY:
--- NOTE | 2020-04-28 | DI.US_ITS ---
EXAM: US SOFT TISS ABD WALL/LOW BACK CLINICAL HISTORY: LUMP BACK, ? LIPOMA. TECHNIQUE: Ultrasound was performed using standard protocol. COMPARISON: US US SOFT TISSUE EXTREMITY from 04/28/2020 FINDINGS: Ultrasound of the area of clinical concern in the left lower back was performed. Images reveal a finding measuring 1.2 x 0.6 x 2.2 cm which corresponds to the patient's palpable find ing. This has appearance of a probable benign lipoma. IMPRESSION: Probable lipoma. Recommend repeat ultrasound in 6 months to ensure stability, earlier if clinically indicated. DATA REPOSITORY:
--- NOTE | 2020-04-28 06:15 | DI.US_ITS ---
EXAM: US SOFT TISSUE EXTREMITY CLINICAL HISTORY: soft tissue masses right arm, bilateral hip, back, m79.89,? lipomas. TECHNIQUE: Ultrasound was performed using standard protocol. COMPARISON: US Cardiac from 03/31/2017 FINDINGS: Ultrasound examination of the area of clinical concern in the right forearm was performed. Submitted images reveal what has appearance of a probable benign lipoma measuring approximately 1.1 x 0.4 x 1.2 cm. IMPRESSION: Probable lipoma. Recommend repeat ultrasound in 6 months to ensure stability, earlier if clinically indicated. DATA REPOSITORY:
== END 2020-04-28 02:13 ==
LOC: DI 02:12
PROVIDERS: PCP Nurse Practitioner; Visit Provider Nurse Practitioner
DX: R22.31 Localized swelling, mass and lump, right upper limb (principal); D17.21 Benign lipomatous neoplasm of skin and subcutaneous tissue of right arm; R22.2 Localized swelling, mass and lump, trunk; D17.1 Benign lipomatous neoplasm of skin and subcutaneous tissue of trunk; R22.43 Localized swelling, mass and lump, lower limb, bilateral; D17.39 Benign lipomatous neoplasm of skin and subcutaneous tissue of other sites; M79.89 Other specified soft tissue disorders
CPT/HCPCS: 76881; 76705

== ENCOUNTER 2020-06-20 02:24 | Outpatient (CLI) | payer MEDICARE, MEDICAID, SELFPAY ==
[2020-06-20 08:30] LABS: Calculated LDL 120 mg/dL (<100); Cholesterol 180 mg/dL (<200); HDL Cholesterol 47 mg/dL (40-60); Triglyceride 68 mg/dL (<150)
== END 2020-06-20 02:25 | disposition home or self-care (01) ==
LOC: LBO 02:24
PROVIDERS: PCP Nurse Practitioner; Visit Provider Nurse Practitioner
DX: E78.5 Hyperlipidemia, unspecified (principal)
CPT/HCPCS: 36415; 80061

== ENCOUNTER 2020-09-29 02:12 | Outpatient (CLI) | payer MEDICARE, MEDICAID, SELFPAY ==
[2020-09-29 08:23] LABS: Abs Immature Grans 0.01 10^3/uL (0.0-0.06); Absolute Basophil Count 0.02 10^3/uL (0.0-0.2); Absolute Eosinophil Count 0.14 10^3/uL (0.0-0.7); Absolute Lymphocyte Count 1.71 10^3/uL (1.2-3.4); Absolute Monocyte Count 0.41 10^3/uL (0.1-0.8); Absolute Neutrophil Count 2.47 10^3/uL (1.2-6.7); Basophils % 0.4; Eosinophils % 2.9; HCT 42.9 % (40.0-50.0); HGB 14.3 g/dL (13.5-17.5); Immature Grans % 0.2; Lymphocytes % 35.9; MCH 31.4 pg (27.0-33.0); MCHC 33.3 % (32.0-36.0); MCV 94.3 fL (80-95); Monocytes % 8.6; Nucleated RBC 0 %; Platelet Count 172 10^3/uL (130-400); RBC 4.55 10^6/uL (4.36-5.78); RDW 12.3 % (11.8-14.1); WBC 4.76 10^3/uL (4.4-10.8)
[2020-09-29 08:47] LABS: ESR 2 mm/hr (0-20)
[2020-09-29 09:11] LABS: ALT 59 U/L (16-63); AST 36 U/L (15-37); Albumin 4.1 g/dL (3.4-5.0); Alkaline Phosphatase 117 U/L (46-116); Anion Gap 6.8 mmol/L (3-11); BUN 17 mg/dL (7-18); Bilirubin, Total 0.5 mg/dL (0.2-1.0); C-Reactive Protein 0.07 mg/dL (0.0-0.3); CO2 31.2 mmol/L (21.0-32.0); CREATININE 1.2 mg/dL (0.70-1.30); Calcium 9.2 mg/dL (8.5-10.1); Chloride 107 mmol/L (98-107); Glucose 107 mg/dL (74-106); Potassium 4.4 mmol/L (3.5-5.1); Sodium 145 mmol/L (136-145); Total Protein 7.2 g/dL (6.4-8.2)
== END 2020-09-29 02:13 | disposition home or self-care (01) ==
LOC: LBO 02:12
PROVIDERS: PCP Nurse Practitioner; Visit Provider Internal Medicine
DX: M25.541 Pain in joints of right hand (principal); M25.542 Pain in joints of left hand; M45.9 Ankylosing spondylitis of unspecified sites in spine; M15.9 Polyosteoarthritis, unspecified; M79.7 Fibromyalgia; M54.5 Low back pain; M25.561 Pain in right knee; M25.562 Pain in left knee; G47.30 Sleep apnea, unspecified
CPT/HCPCS: 36415; 80053; 85652; 85025; 86140

== ENCOUNTER 2020-10-08 02:32 | Outpatient (CLI) | payer MEDICARE, MEDICAID, SELFPAY ==
--- NOTE | 2020-10-08 08:38 | DI.DEXA_ITS ---
Exam(s) XR DEXA BONE DENSITY W/WO SHERMAN EXAM: XR DEXA BONE DENSITY W/WO SHERMAN CLINICAL HISTORY: osteoporosis, ankylosing spondylitis,M81.0 TECHNIQUE: Routine DEXA evaluation of the lumbar spine, hip, or forearm. COMPARISON: No exams were available for comparison FINDINGS: Performed on a Hologic unit. Lateral image: No compression fracture evident. Lumbar Spine total T-score: -1.1 Hip total T-score:-1.7. Independent reading at the femoral neck yields a T-score of -2.4. Forearm total T-score: IMPRESSION: Bone mineral density measures in the osteopenia range. Fracture risk is moderate. Note: Any spine fracture indicates 5x risk for subsequent spine fracture and 2x risk for subsequent h ip fracture. World Health Organization criteria for BMD interpretation classify patients: Normal...... T- Score at or above -1.0 Osteopenic... T- Score between -1.0 and -2.5 Osteoporosis... T-Score at or below -2.5
== END 2020-10-08 02:52 ==
PROVIDERS: PCP Nurse Practitioner; Visit Provider Nurse Practitioner
DX: M81.0 Age-related osteoporosis without current pathological fracture (principal); R93.7 Abnormal findings on diagnostic imaging of other parts of musculoskeletal system; M45.6 Ankylosing spondylitis lumbar region
CPT/HCPCS: 77080

== ENCOUNTER 2021-07-06 01:02 | Outpatient (CLI) | payer MEDICARE, MEDICAID, SELFPAY ==
--- NOTE | 2021-07-06 08:00 | DI.CT_ITS ---
Exam(s) CT CHEST WO EXAM: CT CHEST WO CLINICAL HISTORY: chronic cough. Never smoker. Parents smoked.,dyspnea on exertion,r06.00, TECHNIQUE: Imaging Protocol: Axial computed tomography images with coronal and sagittal reformatted images were created and reviewed CONTRAST MATERIAL: Noncontrast. COMPARISON: CR XR CHEST 2V PA LATERAL from 09/24/2019 FINDINGS: Tracheobronchial tree: No bronchiectasis or mucous plugging. Mediastinum and Nell: No dominant adenopathy or fluid collection. Pulmonary parenchyma: No consolidation or dominant measurable mass. No evidence of emphysematous brito ges or interstitial changes. Pleura: No effusion or pneumothorax. Heart: The heart is not dilated. No coronary artery calcifications are seen. Aorta: Thoracic aorta non-dilated. Minimal atherosclerotic changes upper abdominal aorta. Upper abdomen: Liver mild enlargement and mild fatty infiltration. Cyst upper pole left kidney. Lymph nodes: Within normal limits. Bones: Normal. Soft tissues: Unremarkable. IMPRESSION: Normal CT of the thorax. RADIATION DOSE DELIVERED: 415.42mGy.cm Total DLP DATA REPOSITORY: All CT scans at this facility are submitted to the National Radiology Data Registry (NRDR) Dose Index Registry (DIR) with the [employer] ([employer]). RADIATION OPTIMIZATION: All CT scans at this facility use at least one of these dose optimization te chniques: automated exposure control; mA and/or kV adjustment per patient size (includes targeted exa ms where dose is matched to clinical indication); or iterative reconstruction.
== END 2021-07-06 01:22 ==
PROVIDERS: PCP Nurse Practitioner; Visit Provider Nurse Practitioner
DX: R05.3 Chronic cough (principal); R06.00 Dyspnea, unspecified; R53.83 Other fatigue
CPT/HCPCS: 71250

== ENCOUNTER 2021-07-07 10:21 | Emergency (ER) | payer MEDICARE, MEDICAID, SELFPAY ==
--- NOTE | 2021-07-07 10:26 | ED.GENADUL_ITS ---
Discharge Plan Disposition Patient Disposition: HOME Condition: Stable Discharge Details Clinical Impression: Dental infection Primary Care Provider: Maureen Lua ED Provider: Thalia Stevens Home Meds and New Rx's Prescriptions: New penicillin V potassium 500 mg tablet 500 mg PO QID 7 Days Qty: 28 0RF Continued naproxen 500 mg tablet 500 mg PO BID PRN0RF simvastatin 40 mg tablet 40 mg PO DAILY Qty: 90 3RF Rx Instructions: to lower cholesterol dexlansoprazole [Dexilant] 60 mg capsule,biphase delayed releas 60 mg PO DAILY Qty: 90 3RF hydrocodone-acetaminophen 5-325 mg tablet 1 tab PO TID MDD 15 mg hydrocodone PRN (Reason: pain) Qty: 60 0RF Enbrel 25 mg (1 mL) recon soln 25 mg SC QWEEK 0RF cyanocobalamin (vitamin B-12) 1,000 MCG/1 ML solution 1,000 mcg IM Q28 DAYS Qty: 1 0RF aspirin 81 MG tablet,chewable 81 mg PO DAILY 0RF turmeric root extract 500 mg capsule 1,000 mg PO BID 0RF Rx Instructions: [place] dated [facility] [place] [facility] [place]arcan[place] 4 mg/actuation spray,non-aerosol 4 mg LILLIAN Q2M PRN (Reason: opioid overdose) Qty: 2 2RF Rx Instructions: spray 1 dose into ONE nostril; alternate nostrils w each dose until help arrives diclofenac sodium [Voltaren] 1 % gel 2 gm TP QID PRN0RF Rx Instructions: FOR PERIPHERAL JOINT PAIN pregabalin 50 mg capsule 150 mg PO QHS 0RF Rx Instructions: [place] [facility] [place] 12.5 mg tablet 12.5 mg PO DAILY Qty: 90 3RF Discharge Instructions Instructions: Dental Abscess (ED) Additional Instructions: It is suspected that you have a developing dental infection. There is no evidence of dental abscess today which is a collection of pus around your tooth. A prescription for antibiotics has been sent electronically to your pharmacy. Alternate tylenol and motrin as needed and directed for pain. Call a local dentist today to schedule a follow-up appointment for reevaluation. Return immediately to the emergency department if you develop any worsening or new concerning symptoms such as fever, increased pain, redness, swelling, diff iculty swallowing or breathing. Discharge Data Discharge Date/Time-TO BE ENTERED AT DEPARTURE: 07/07/21 11:10 Discharge Physician: Thalia Stevens Medical Decision Making 60-year-old male with a history of ankylosing spondylitis, fibromyalgia, chronic pain syndrome on Vicodin as needed presents with right lower dental pain for the past few days. Afebrile. Patient appears nontoxic. Normal oropharynx. No drooling, trismus or submandibular swelling poor dentition throughout. Tooth #31 missing with base exposed. Mild surrounding mucosal edema and erythema. There is no abscess noted. Will treat with penicillin. Patient given dental follow-up list. Advised to take his naproxen and Vicodin at home as needed. Usual and customary return precautions given prior to discharge. Medical Records Medical records reviewed: Yes I reviewed the patient's medical records. HPI General Mode of arrival: ambulatory . Date/Time Provider Initiated Documentation: 07/07/21 10:26 . Limitations to Documentation: no limitations . Information obtained by: patient . HPI Narrative: Patient is a 60-year-old male who presents with right lower dental pain for the past few days. Patient has noted right-sided facial swelling. He has some pain radiating to his right ear. He denies any fever, difficulty swallowing, difficulty breathing. Patient states he has ibuprofen and vicodin that he takes as needed for pain for his ankylosing spondylitis. He denies any recent antibiotics. He states he called 5 local dentists but was unable to get in. Related Data Home Medications Medication Instructions Recorded Confirmed cyanocobalamin (vitamin B-12) 1,000 mcg IM Q28 DAYS #1 vial 06/07/12 07/07/21 1,000 mcg/mL injection solution aspirin 81 mg chewable tablet 81 mg PO DAILY tab-cap 04/26/17 07/07/21 etanercept 25 mg (1 mL) 25 mg SC QWEEK 04/09/19 07/07/21 subcutaneous powder for solution (Enbrel) turmeric root extract 500 mg 1,000 mg PO BID cap 05/17/19 07/07/21 capsule naloxone 4 mg/actuation nasal 4 mg LILLIAN Q2M PRN #2 each 05/22/19 07/07/21 spray (Narcan) diclofenac sodium 1 % topical gel 2 gm TP QID PRN 09/05/19 07/07/21 (Voltaren) naproxen 500 mg tablet 500 mg PO BID PRN 09/22/20 07/07/21 pregabalin 50 mg capsule 150 mg PO QHS cap 11/11/20 07/07/21 hydrochlorothiazide 12.5 mg tablet 12.5 mg PO DAILY #90 tab 05/11/21 07/07/21 dexlansoprazole 60 mg 60 mg PO DAILY #90 tab-cap 06/15/21 07/07/21 capsule,biphase delayed release (Dexilant) hydrocodone 5 mg-acetaminophen 325 1 tab PO TID PRN #60 tab MDD 15 mg 06/15/21 07/07/21 mg tablet hydrocodone simvastatin 40 mg tablet 40 mg PO DAILY #90 tab 06/15/21 07/07/21 penicillin V potassium 500 mg 500 mg PO QID 7 Days #28 tab 07/07/21 tablet Previous Rx's Medication Instructions Recorded naloxone 4 mg/actuation nasal 4 mg LILLIAN Q2M PRN #2 each 05/22/19 spray (Narcan) hydrochlorothiazide 12.5 mg tablet 12.5 mg PO DAILY #90 tab 05/11/21 dexlansoprazole 60 mg 60 mg PO DAILY #90 tab-cap 06/15/21 capsule,biphase delayed release (Dexilant) hydrocodone 5 mg-acetaminophen 325 1 tab PO TID PRN #60 tab MDD 15 mg 06/15/21 mg tablet hydrocodone simvastatin 40 mg tablet 40 mg PO DAILY #90 tab 06/15/21 penicillin V potassium 500 mg 500 mg PO QID 7 Days #28 tab 07/07/21 tablet Allergies Allergy/AdvReac Type Severity Reaction Status Date / Time No Known Allergies Allergy Verified 07/07/21 10:35 General Stated Complaint: DentalOral CIARA: 4 Review of Systems All systems reviewed & are unremarkable except as noted in HPI and below Constitutional Constitutional: Reports as per HPI, Denies chills and Denies fever(s) Eyes Eyes: Denies blurry vision ENT Ears, Nose, Mouth, and Throat: Denies dizziness, Denies sore throat and Denies throat swelling Cardiovascular Cardiovascular: Denies chest pain and Denies dyspnea Respiratory Respiratory: Denies cough and Denies dyspnea Gastrointestinal Gastrointestinal: Denies abdominal pain, Denies diarrhea and Denies vomiting Genitourinary Genitourinary: Denies hematuria and Denies dysuria Musculoskeletal Musculoskeletal: Denies back pain and Denies numbness Integumentary/Breasts Skin/Breast: Denies lesions and Denies rash Neurologic Neurologic: Denies dizziness, Denies localized weakness and Denies numbness Allergic/Immunologic Allergic/Immunologic: Denies throat swelling [facility] All Active Problems (Updated 07/07/21 @ 11:15 by Thalia Stevens DO) Dental infection (Acute) Fatigue (Acute) Osteoporosis (Chronic) Chronic pain syndrome (Chronic) Hyperlipidemia (Acute) Broken teeth (Acute) Soft tissue mass (Acute) Fatigue (Acute) IFG (impaired fasting glucose) (Acute) Encounter for screening laboratory testing for COVID-19 virus (Acute) Anxiety (Chronic) Depression (Chronic) Cough (Acute) MCI (mild cognitive impairment) (Chronic 02/2019) Neuro [facility] 02/16/19 Poor memory (Chronic) Insomnia (Acute) Raynaud's syndrome (Chronic 01/04/13) Reflux esophagitis (Chronic 06/14/12) 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) Osteoarth NOS-unspec (Chronic 06/08/11) Long-term use of immunosuppressant medication (Acute 03/08/17) Hematuria (Chronic 07/26/14) neg US kidney (except non-obst stone 06/2014; neg cystocopy D Karthikeyan [facility] [place] Unspecified essential hypertension (Acute 06/14/12) Cough (Acute 07/27/12) Chronic cough (Acute 03/29/17) Other vitamin B12 deficiency anemia (Chronic 06/14/12) Anemia, unspecified (Chronic 06/14/12) Adjustment disorder with depressed mood (Acute 06/21/12) Medical History (Updated 07/07/21 @ 11:15 by Thalia Stevens DO) Ankylosing spondylitis (06/14/12) Dr Clancy [facility] 08/18/18 Dr Hickman [facility] [place] 11/01/18 F[place] [facility] [place] Chronic pain syndrome (06/14/12) chronic back pain, ankylosing spondylitis Fibromyalgia Hyperlipidemia (06/14/12) PCEq CV risk 9.7% LDL baseline 145 Hypertension FLORIN (obstructive sleep apnea) (04/14/17) Surgical History Colonoscopy - IV Sedation (04/23/13) cystourethroscopy (07/26/14) Family History Father Heart disease of CHF Mother History of Coumadin therapy Social History (Updated 10/02/19 @ 07:53 by Yelena Becerril RN) Smoking/Tobacco Use Status: Never Second Hand Exposure: No Smoking risk assessment performed?: Yes Alcohol Intake: former Drug use: Never Substance use type: does not use Caregiver/Support person: No Foster care: No Household members: spouse and other Details: 2 Housing: house Number of Children: 2 Communication Needs: None current occupation: disabled Current gender identity: male What is your relationship status?: Panel score (0-1 are the most socially isolated patients): 1 What type of physical activity do you participate in: walking Duration: 30-45 minutes/day Frequency: 3-4 times per week Do you feel safe at home: Yes Do you feel safe in your relationship?: Yes Exam Const General: cooperative, healthy appearing and no acute distress Orientation: alert, awake and oriented x3 HENMT Head: normal to inspection Ears: hearing grossly normal bilaterally, external ears normal and TM's normal bilaterally General nose exam: external nose normal Face and sinus: normal facial exam Face images: 1. R sided mandibular edema. No erythema, ecchymosis, induration, fluctuance, rash or lesions. Mouth: oral mucosae normal, no drooling and no trismus Teeth and gingiva: poor dentition Teeth image: 1. Tooth broken and missing down to base. There is mild surrounding mucosal erythema and edema. No fluctuance, induration, drainage or bleeding. Throat: posterior oropharynx normal, uvula midline and no peritonsillar masses Eyes General: appearance normal, both eyes and all related structures Neck Neck: normal visual inspection, full ROM, no lymphadenopathy, no meningeal signs, trachea midline, supple, no anterior neck swelling and No submandibular swelling Resp Effort & Inspection: normal respiratory effort and able to speak in complete sentences Cardio Rate: regular rate Skin General skin exam: no rashes or lesions noted Neuro General: patient alert, patient awake and patient oriented x3 Motor: muscle tone normal throughout Extrem General: normal to inspection and full ROM Psych Appearance: grossly normal Affect: normal affect
[2021-07-07 10:31] VITALS: BP 147/86; PULSE 91; RESP 17; TEMP 36.8; O2SAT 97
[2021-07-07] MEDS: Penicillin V POTASSIUM 500 MG TAB PO (11:05)
== END 2021-07-07 11:10 | disposition home or self-care (01) ==
PROVIDERS: Emergency Provider Physician Assistant; PCP Nurse Practitioner
DX: S22.32XA Fracture of one rib, left side, initial encounter for closed fracture (principal); S00.83XA Contusion of other part of head, initial encounter; S50.312A Abrasion of left elbow, initial encounter; W17.89XA Other fall from one level to another, initial encounter
CPT/HCPCS: 90471; 99284; 99283

== ENCOUNTER 2021-07-09 03:32 | Outpatient (CLI) | payer MEDICARE, MEDICAID, SELFPAY ==
[2021-07-09 09:02] LABS: Total Iron Binding Capacity 221 ug/dL (250-450)
[2021-07-09 09:26] LABS: Vitamin D 25 Total 54.7 ng/mL (30-100)
[2021-07-09 09:27] LABS: ALT 37 U/L (16-63); AST 22 U/L (15-37); Albumin 3.6 g/dL (3.4-5.0); Alkaline Phosphatase 91 U/L (46-116); Anion Gap 7.1 mmol/L (3-11); BUN 13 mg/dL (7-18); Bilirubin, Total 0.5 mg/dL (0.2-1.0); CO2 31.9 mmol/L (21.0-32.0); CREATININE 1.1 mg/dL (0.70-1.30); Calcium 8.4 mg/dL (8.5-10.1); Calculated LDL 134 mg/dL (<100); Chloride 105 mmol/L (98-107); Cholesterol 189 mg/dL (<200); Ferritin 562 ng/mL (26-388); Glucose 105 mg/dL (74-106); HDL Cholesterol 40 mg/dL (40-60); Sodium 144 mmol/L (136-145); TSH (W/Ref FT4) 1.64 uIU/mL (0.36-3.74); Triglyceride 77 mg/dL (<150); Vitamin B12 989 pg/mL (193-986)
== END 2021-07-09 03:33 | disposition home or self-care (01) ==
LOC: LBO 03:32
PROVIDERS: PCP Nurse Practitioner; Visit Provider Nurse Practitioner
DX: E78.5 Hyperlipidemia, unspecified (principal); I10 Essential (primary) hypertension; D64.9 Anemia, unspecified; M45.9 Ankylosing spondylitis of unspecified sites in spine; R53.83 Other fatigue; E55.9 Vitamin D deficiency, unspecified; Z79.899 Other long term (current) drug therapy
CPT/HCPCS: 36415; 80053; 80061; 82306; 82607; 82728; 83550; 84443

== ENCOUNTER 2021-09-30 03:45 | Outpatient (CLI) | payer MEDICARE, MEDICAID, SELFPAY ==
[2021-09-30 09:12] LABS: HCT 46.4 % (40.0-50.0); HGB 16.2 g/dL (13.5-17.5); MCH 31.5 pg (27.0-33.0); MCHC 34.9 % (32.0-36.0); MCV 90 fL (80-95); MPV 10.8 fL (8.0-11.0); Platelet Count 169 10^3/uL (130-400); RBC 5.15 10^6/uL (4.36-5.78); RDW 12.1 % (11.8-14.1); RDW-SD 40.2 fL; WBC 5.56 10^3/uL (4.4-10.8)
[2021-09-30 09:13] LABS: ESR 2 mm/hr (0-20)
[2021-09-30 10:26] LABS: Ferritin 541 ng/mL (26-388)
== END 2021-09-30 03:46 | disposition home or self-care (01) ==
LOC: LBO 03:45
PROVIDERS: PCP Nurse Practitioner; Visit Provider Nurse Practitioner
DX: R79.9 Abnormal finding of blood chemistry, unspecified (principal); M45.9 Ankylosing spondylitis of unspecified sites in spine
CPT/HCPCS: 36415; 85027; 85652; 82728

== ENCOUNTER → 2021-10-15 00:57 | Outpatient (CLI) | payer MEDICARE, MEDICAID, SELFPAY ==
--- NOTE | 2021-10-15 | DI.MRI_ITS ---
Exam(s) MR UPPER JOINT LT WO/W EXAM: MR UPPER JOINT LT WO/W CLINICAL HISTORY: LT ELBOW PAIN, M25.522,SPONDYLOARTHRITIS,M47.819 TECHNIQUE: Multiplanar multisequence MRI of the shoulder was performed. Both pre and post contrast infused sequences were performed. Contrast injected was 13 mL Dotarem COMPARISON: No exams were available for comparison FINDINGS: MARROW:No abnormal intraosseous signal. No significant bone lesions. ARTICULATION: Minimal amount of increased fluid in the elbow joint. No large joint effusion. No osteo chondral defects in the capitellum and trochlea. ULNAR/MEDIAL COLLATERAL LIGAMENT: Unremarkable. No tear. RADIAL COLLATERAL LIGAMENT: Unremarkable. No tear. TENDONS: Biceps tendon: Intact. No tear. Brachialis tendon: Intact. No tear. Triceps tendon: Tendinitis signal in the distal tendon. Enthesophyte at this level. No abnormal intra osseous signal. Common extensor tendon: Increased signal with partial tearing Common flexor tendon: Unremarkable. No tear. Cubital tunnel: Ulnar nerve appears unremarkable. Muscles: No abnormal signal. No atrophy. IMPRESSION: 1. Lateral epicondylitis with tendinosis and partial tearing of the common extensor tendon. 2. Triceps tendinopathy. Also small enthesophyte at the insertional aspect of the triceps on the post erior olecranon. DATA REPOSITORY:
[2021-10-15 12:31] LABS: CREATININE 1.2 mg/dL (0.70-1.30)
[2021-10-15] MEDS: Normal Saline Flush 10 ML SYR IVP (13:05)
--- NOTE | 2021-10-15 18:18 | DI.VRAD_ITS ---
PROCEDURE INFORMATION: Exam: MR Left Upper Extremity Joint Without and With Contrast; Elbow Exam date and time: 10/15/2021 12:27 PM Age: 60 years old Clinical indication: Other: Lt elbow pain, m25.522, spondyloarthritis, m47.819 TECHNIQUE: Imaging protocol: Magnetic resonance imaging of the Left upper extremity without and with contrast. Exam focused on the elbow. COMPARISON: US SOFT TISSUE EXTREMITY 04/28/2020 7:24 AM FINDINGS: Bones and cartilage: Marrow signal of the distal humerus, proximal radius and ulna is normal. Joint spaces are preserved. Joint spaces: Small joint space effusion. Ulnar (medial) collateral ligament: Unremarkable. No tear. Radial collateral ligament of the elbow: Unremarkable. No tear. Annular ligament of the radius: Unremarkable. No tear. Tendon of the biceps brachii: Unremarkable. No tear. Tendon of the brachialis: Unremarkable. No tear. Triceps tendon: Tendinopathy changes of the distal triceps tendon. Common flexor tendon: Unremarkable. No tear. Common extensor tendon: Increased signal and partial tear of the common extensor tendon. Muscles: Unremarkable. Soft tissues: Unremarkable. IMPRESSION: 1. Lateral epicondylitis with tendinosis and partial tear of the common extensor tendon. 2. Triceps tendinopathy. Dictated and Authenticated by: Dank Gibson MD. Ordering:ELI Menezes MD
== END ==
PROVIDERS: PCP Nurse Practitioner; Visit Provider Internal Medicine
DX: S56.512A Strain of other extensor muscle, fascia and tendon at forearm level, left arm, initial encounter (principal); M77.12 Lateral epicondylitis, left elbow; X58.XXXA Exposure to other specified factors, initial encounter
CPT/HCPCS: 73223; 82565

== ENCOUNTER 2021-11-13 02:03 | Outpatient (CLI) | payer MEDICARE, MEDICAID, SELFPAY ==
[2021-11-13] MEDS: Albuterol HFA 18 GM 200 PUFF INH IH (11:37)
[2021-11-13] MEDS: Methacholine 100 MG VIAL IH (11:37)
[2021-11-13] MEDS: Inhaler, Assist Device 1 EACH MC (11:38)
--- NOTE | 2021-11-29 09:39 | W.PFT ---
Date of service: 11/13/21 Time of Service: 10:04 Pulmonary Function Test Result Requesting Provider Boom Indications: Chronic Cough Interpretation Spirometry: There is no airflow limitation. There was a 0% decrease in FEV1 with administration with 16mg/mL methacholine. Lung Volumes: Lung volumes are normal Diffusion Capacity: Diffusion is normal Airway Pressure: Normal airways resistance. Impression Normal pulmonary function testing with a negative methacholine challenge test. Clinical Correlation therefore is recommended.
== END 2021-11-13 02:04 | disposition home or self-care (01) ==
LOC: RT 02:03
PROVIDERS: PCP Nurse Practitioner; Visit Provider Student in an Organized Health Care Education/Training Program
DX: R05.8 Other specified cough (principal)
CPT/HCPCS: 94060; 94070; 94726; 94729; 94010; J7674

== ENCOUNTER → 2022-08-31 08:50 | Outpatient (BNVA) | payer MEDICARE, MEDICAID, SELFPAY | PROVIDERS: PCP Nurse Practitioner; Referring Provider Nurse Practitioner; Visit Provider Surgery | DX: K21.9 Gastro-esophageal reflux disease without esophagitis (principal); R10.13 Epigastric pain | CPT/HCPCS: 99202; 99213 ==

== ENCOUNTER 2022-09-08 07:06 | Day surgery (SDC) | payer MEDICARE, MEDICAID, SELFPAY ==
--- NOTE | 2022-09-08 06:40 | W.PM.ENDDOP ---
Date of service: 09/08/22 Time of Service: 09:10 Endoscopy Report DATE OF PROCEDURE: 09/08/22 PRE-OP DIAGNOSIS: epigastric pain POST-OP DIAGNOSIS: other (inflammation of the stomach and esophagus) PROCEDURE: EGD with biopsies SURGEON: Chen Reno ANESTHESIA TYPE: General:No Airway ESTIMATED BLOOD LOSS: 15 PATHOLOGY: other (Bx of stomach, GE junction) COMPLICATIONS: None DISPOSITION: same day INDICATIONS: Mr. Chapman is a pleasant 61-year-old gentleman with a history of gastroesophageal reflux disease and epigastric pain.? His pain has gotten better since changing his diet and stopping ibuprofen.? He is now on Celebrex which is helping his pain.? We discussed the upper endoscopy procedure in detail using a pamphlet with pictures.? We reviewed the complications.? Risks, benefits and complications have been reviewed. Complications include but are not limited to bleeding, pain, perforation, sore throat, aspiration, and adverse reaction to the medications.? Questions were entertained and answered to their satisfaction and they wished to proceed. No guarantees were given or implied.? Patient seems to have a good understanding of the complications as well as the procedure itself and wishes to proceed. FINDINGS: Mild to moderate inflammation of the stomach and esophagus PROCEDURE DESCRIPTION: After informed consent was obtained the patient was take to the procedure room and placed in a supine position. Monitors were applied and a time out was done. The patients name, date of , procedure type, allergies to medications and metal in their body was reviewed. A bite block was placed and the patient was sedated. Once sedated and comfortable the gastroscope was advanced through the oropharynx which was grossly normal into the esophagus. The proximal and mid-esophagus were normal. In the distal esophagus there was inflammation noted. The scope was advanced into the stomach and through the pylorus into the 3rd portion of the duodenum. The duodenum was noted to be normal. The scope was retracted back into the stomach. There was moderate inflammation noted and biopsies were done to rule out H. pylori. There were no ulcers. The scope was retroflexed. The cardia and fundus were noted to be normal. There no hiatal hernia noted. The scope was retracted back into the esophagus and biopsies were done of the GE junction to rule out Bill's. The Z line was regular. The GE junction was at 40 cm. The scope was removed and the patient was woken up and taken back to [facility] in stable condition.
--- NOTE | 2022-09-08 06:42 | PDOC.DSDIS_ITS ---
Date of service: 09/08/22 Time of Service: 09:27 Discharge Plan Disposition Patient Disposition: Home Condition: Stable Discharge Details Reason For Visit: epigastric pain Attending Provider: Chen Reno Primary Care Provider: Maureen Lua Home Meds and New Rx's Prescriptions: New pantoprazole [Protonix] 40 mg tablet,delayed release (DR/EC) 40 mg PO BID Qty: 60 0RF Continued celecoxib [Celebrex] 200 mg capsule 200 mg PO DAILY duloxetine 30 mg capsule,delayed release(DR/EC) 30 mg PO DAILY hydrocodone-acetaminophen 5-325 mg tablet 1 tab PO BID MDD 10mg PRN (Reason: pain) Qty: 56 0RF Enbrel 25 mg (1 mL) recon soln 25 mg SC QWEEK simvastatin 40 mg tablet 40 mg PO DAILY Qty: 90 3RF Rx Instructions: to lower cholesterol cyanocobalamin (vitamin B-12) 1,000 MCG/1 ML solution 1,000 mcg IM Q28 DAYS Qty: 1 aspirin 81 MG tablet,chewable 81 mg PO DAILY diclofenac sodium [Voltaren] 1 % gel 2 gm TP QID PRN Rx Instructions: FOR PERIPHERAL JOINT PAIN hydrochlorothiazide 12.5 mg tablet See Rx Instructions .ROUTE .COMPLEX Qty: 90 3RF Dose Instruction: TAKE ONE TABLET BY MOUTH EVERY DAY Rx Instructions: TAKE ONE TABLET BY MOUTH EVERY DAY Discontinued dexlansoprazole [Dexilant] 60 mg capsule,biphase delayed releas 60 mg PO DAILY Qty: 90 3RF Discharge Instructions Instructions: Diet for Stomach Ulcers and Gastritis (ED), Gastritis (DC), Esophagitis (DC) Additional Instructions: Findings: inflammation of the stomach and esophagus Medication: Stop dexilant start Protonix 40 mg 2 x a day Follow up: 3 weeks Please call if you develop: fevers >101.5 Nausea or Vomiting Abdominal pain that is not transient Rectal bleeding that is more then a tbsp A hard abdomen and inability to pass gas DAY SURGERY UNIT POST ENDOSCOPY INSTRUCTIONS Instructions for everyone who is given Anesthesia: For your safety, please do the following for the next 24 Hours: a. Do not drive or operate dangerous equipment b. Do not drink alcohol beverages or use any recreational drugs for the first 24 hours or while taking pain medications. The medications in your body may have a reaction that can be dangerous. c. Do not make any important decisions or sign any important papers 1. Generally there are no restrictions on your activity after a day or so has gone by, but you may feel a bit fatigued for a few days. 2. After you arrive home you may have a light meal and return to a normal diet as you can tolerate it without feeling sick to your stomach. 3. After surgery, you may feel pain or discomfort. This should be only transient, but if it persists please contact your doctor. 4. If there are any questions regarding the findings of your procedure, please feel free to contact your doctor. 6. If you are unable to contact your doctor with a problem, contact the hospital at [phone]. 7. Continue all your regular medications unless directed otherwise. I understand the above instructions and have no questions. Signature of Patient or Responsible Adult Escort Date/Time Name of Responsible Adult Escort Signature of Nurse Date/Time Referrals: Chen Reno MD [ [facility] STAFF PHYSICIAN] - 09/27/22 9:30 am Activity:: Activity as Tolerated Diet:: As Tolerated DS: Diagnosis Discharge Diagnosis (1) Gastritis: Status: Acute Asessment and Plan: Patient is seen and examined after their endoscopy. Patient has minimal sore throat. They have been able to tolerate liquids. They do not have any Nausea or Vomiting. They are not having any chest pain or shortness of breath. They have been able to pass gas and are not having any abdominal pain or distention. they have not vomited any blood. The vital signs have been stable-see nursing notes. We discussed findings on their endoscopy We reviewed the importance of lifestyle modifications- see diet recommendations We reviewed any new medications that the patient may be prescribed- see medicine reconciliation. Patient will either be sent a letter with the biopsy results or follow up in the office- see discharge instructions Patient was given explicit instructions for emergency follow up post endoscopy- see discharge instructions Patient verbalized understanding and was discharged in stable and satisfactory condition. See nursing notes. (2) GERD (gastroesophageal reflux disease): Status: Chronic
[2022-09-08 07:25] VITALS: BP 164/89; PULSE 69; RESP 16; TEMP 36.6; O2SAT 98
[2022-09-08] MEDS: Lactated Ringers 1,000 ML 80 ML IV (07:44)
--- NOTE | 2022-09-08 07:54 | W.ANESPRE ---
General Info Date of Service Date Performed: 09/08/22 Height: 5 ft 6 in Weight: 64.7 kg Body Mass Index (BMI): 23.0 Surgical Procedure: Operation Date: 09/08/22 09:05 Proposed Procedure Side Surgeon p Gastroscopy Chen Reno MD Meds Allergies and Home Medications Allergies Allergy/AdvReac Type Severity Reaction Status Date / Time amitriptyline AdvReac Intermediate I didnt Verified 09/08/22 07:21 like the feeling Home Medication Medication Instructions Recorded cyanocobalamin (vitamin B-12) 1,000 mcg IM Q28 DAYS #1 vial 06/07/12 1,000 mcg/mL injection solution aspirin 81 mg chewable tablet 81 mg PO DAILY 04/26/17 etanercept 25 mg (1 mL) 25 mg subcut QWEEK 04/09/19 subcutaneous powder for solution (Enbrel) diclofenac sodium 1 % topical gel 2 gm topical QID PRN 09/05/19 (Voltaren) hydrochlorothiazide 12.5 mg tablet See Rx Instructions .Route 05/03/22 .COMPLEX #90 tabs dexlansoprazole 60 mg 60 mg PO DAILY #90 tab-caps 05/27/22 capsule,biphase delayed release (Dexilant) simvastatin 40 mg tablet 40 mg PO DAILY #90 tabs 05/27/22 celecoxib 200 mg capsule (Celebrex) 200 mg PO DAILY 08/19/22 duloxetine 30 mg capsule,delayed 30 mg PO DAILY 08/19/22 release hydrocodone 5 mg-acetaminophen 325 1 tab PO BID PRN pain #56 tabs 08/19/22 mg tablet Current Visit Medications: Current Medications Generic Name Dose Route Start Last Admin Trade Name Freq PRN Reason Stop Dose Admin Ringer's Solution 1,000 mls @ 80 mls/hr 09/08/22 06:00 09/08/22 07:44 IV 10/03/22 23:59 80 mls/hr INFUSION LUIZ Administration IV Miscellaneous Supplies 1 each 09/08/22 06:00 Iv Access IV 10/03/22 23:59 DIRECTED LUIZ Ondansetron HCl 4 mg 09/08/22 06:39 Ondansetron 4 Mg/2 Ml Vial IVP 10/08/22 06:38 Q4H PRN PRN Nausea / Vomiting Simethicone 80 mg 09/08/22 06:39 Simethicone 80 Mg Chew PO 10/08/22 06:38 PRN PRN Sodium Chloride 0 ml 09/08/22 06:00 Normal Saline Flush 10 Ml Syr IV 10/03/22 23:59 PRN PRN Sodium Chloride 0 ml 09/08/22 06:00 Normal Saline 10 Ml Vial IJ 10/03/22 23:59 DIRECTED PRN Sterile Water 0 ml 09/08/22 06:00 Water,Injection,Sterile 10 Ml Vial IJ 10/03/22 23:59 DIRECTED PRN PFSH Active Problems Active Problems: Problem Status Onset Code Epigastric pain R10.13 GERD (gastroesophageal reflux disease) K21.9 Elevated ferritin 02/04/22 R79.89 Ankylosing spondylitis 06/14/12 M45.9 Fatigue R53.83 Osteoporosis M81.0 Chronic pain syndrome G89.4 Hyperlipidemia E78.5 Broken teeth S02.5XXA Soft tissue mass M79.89 Fatigue R53.83 IFG (impaired fasting glucose) R73.01 Encounter for screening laboratory testing for COVID-19 virus Z11.59 Anxiety F41.9 Depression F32.9 Cough R05 MCI (mild cognitive impairment) 02/2019 G31.84 Poor memory R41.3 Insomnia G47.00 Raynaud's syndrome 01/04/13 I73.00 Reflux esophagitis 06/14/12 K21.0 Osteoarth NOS-l/leg 06/08/11 Osteoarth NOS-unspec 06/08/11 M19.90 Long-term use of immunosuppressant medication 03/08/17 Z79.899 Hematuria 07/26/14 R31.9 Unspecified essential hypertension 06/14/12 I10 Cough 07/27/12 R05 Chronic cough 03/29/17 R05 Other vitamin B12 deficiency anemia 06/14/12 D51.8 Anemia, unspecified 06/14/12 D64.9 Adjustment disorder with depressed mood 06/21/12 F43.21 Medical History Medical History Chronic pain syndrome (06/14/12) chronic back pain, ankylosing spondylitis Fibromyalgia Hyperlipidemia (06/14/12) PCEq CV risk 9.7% LDL baseline 145 Hypertension FLORIN (obstructive sleep apnea) (04/14/17) Medical History Comments:: Pt. states his niece is allergic to it, she quit breathing and they had to revive her, not sure what it was Pt. states he has had anesthesia and been fine in the past with it Surgical History Surgical History (Updated 09/08/22 @ 07:21 by Grant Benoit) Colonoscopy - IV Sedation (04/23/13) cystourethroscopy (07/26/14) Hx of arthroscopy of shoulder Right rotator cuff repair. Tobacco Smoking/Tobacco Use Status: Never Second hand exposure: No Alcohol Alcohol Intake: former Substance Use Substance use: Never Substance use type: does not use Vital Signs and Lab Results Vital Signs Most Recent Vital Signs in EMR: Most Recent Vital Signs Temp Pulse Resp BP Pulse Ox 36.6 C 69 16 164/89 H 98 09/08/22 07:25 09/08/22 07:25 09/08/22 07:25 09/08/22 07:25 09/08/22 07:25 Lab Results Blood Type / Crossmatch: No Data to Display Complete Blood Count: No Data to Display Complete Metabolic Panel: No Data to Display Liver Function Panel: No Data to Display Coagulation Panel: No Data to Display Cardiac Panel: No Data to Display Arterial Blood Gas: No Data to Display Venous Blood Gas: No Data to Display Pancreas Panel: No Data to Display Thyroid Panel: No Data to Display Infectious Disease: No Data to Display Blood Cultures: No Data to Display Toxicology Panel: No Data to Display Anesthesia Assessment and Plan Anesthesia History Personal History: No History of Anesthesia Complications Family History: Other Exercise Tolerance Exercise Tolerance: Metabolic Equivalents>4 Cardiac & Pulmonary Exam Cardiac Exam: Normal S1/S2 Heart Sounds Pulmonary Exam: Clear Bilateral Breath Sounds Implantable Cardiac Device Does patient have a Pacemaker or an ICD?: No Airway Exam Known Difficult Airway: No Mallampati Class: 2 Mouth Opening: Normal (> 3cm) Thyromental Distance: Greater than 3 cm Neck Range of Motion: Full ROM Neck Circumference: Normal Teeth Condition: Normal Dentition ASA Classification ASA Score: ASA 2 Emergency Case?: No NPO Status NPO Status: NPO Clears >2 hours, Solids >8 hours Anesthesia Plan Resuscitation Status: Full Code Anesthesia Technique: General Anesthesia Airway Planned: Natural Airway Monitors Used: Standard Monitors
[2022-09-08 07:55] VITALS: BMI 23.0
--- NOTE | 2022-09-08 08:46 | W.PM.PROGNOT ---
Date of Service Date of service: 09/08/22 Time of Service: 08:46 Assessment and Plan Assessment and plan (1) GERD (gastroesophageal reflux disease): Status: Chronic Assessment and plan: Mr. Chapman is a pleasant 61-year-old gentleman who I saw in the office for epigastric pain and a history of reflux. I saw him again in same-day surgery. He has no questions or concerns. We did review the risks and benefits and complications and he was okay to proceed. He had a good understanding of the possible complications. Risks, benefits and complications have been reviewed. Complications include but are not limited to bleeding, pain, perforation, sore throat, aspiration, and adverse reaction to the medications. Questions were entertained and answered to their satisfaction and they wished to proceed. No guarantees were given or implied. (2) Epigastric pain: Status: Acute Subjective Subjective Interval history since last seen: I saw Mr. Chapman in the same-day surgery area prior to his procedure. He is doing well. His epigastric pain has settled down since adjusting his diet and stopping the Naprosyn. He is taking that for his osteoarthritis. He has had no new symptoms or concerns since I saw him in the office. We quickly reviewed the procedure again as well as the complications and he had no more questions. Exam Const General: comfortable and no acute distress Orientation: alert and oriented x3 HENMT Head: normocephalic and atraumatic Resp Effort & Inspection: normal respiratory effort Auscultation: clear to auscultation bilaterally GI Inspection: normal to inspection Palpation: soft Objective Last Vital Signs Temp 97.9 F 09/08/22 07:25 Pulse 69 09/08/22 07:25 Resp 16 09/08/22 07:25 BP 164/89 H 09/08/22 07:25 Pulse Ox 98 09/08/22 07:25 Time Spent with Patient Time Spent with Patient: <25 minutes Time was spent: counseling the patient
--- NOTE | 2022-09-08 08:55 | STOM_PTH ---
PATIENT: Erasto Chapman LOC: [facility] U#:[id number] AGE/SX: 61/M ROOM: RE09/08/[address]: Chen Reno MD : 1960 BED: DIS: 09/08/2022 SPEC #: [id number] RECD: 09/09/22 12:34 STATUS: [facility] #: [id number] BESSIE: 09/08/22 08:[address]: Chen Reno DEPT: Surgical Specimen RECD BY: Lorie Ferro ENTERED: 09/09/22 12:36 SP TYPE: STOMACH OTHR DR: Maureen Lua APRN Tissues: 1 - STOMACH BIOPSY 2 - STOMACH BIOPSY 3 - ESOPHAGUS BIOPSY Procedures: GROSS AND MICRO LEVEL 4 Comments: [id number]
[2022-09-08 09:08] VITALS: BP 132/74; PULSE 61; RESP 16; TEMP 36.3; O2SAT 98
--- NOTE | 2022-09-08 09:12 | W.ANESPOSTOP ---
Postoperative Evaluation Date, Time and Location Date Performed: 09/08/22 Time Performed: 09:12 Patient Location: Day Surgery Unit Vital Signs Most Recent Imported Vital Signs: Most Recent Vital Signs Temp Pulse Resp BP Pulse Ox 36.3 C L 61 16 132/74 98 09/08/22 09:08 09/08/22 09:08 09/08/22 09:08 09/08/22 09:08 09/08/22 09:08 Pain Score Most Recent Pain Score: Most Recent Pain Score Pain Level 0 09/08/22 09:08 Assessment Mental Status: Awake (Alert & Oriented to Patient Baseline) Airway and Respiratory Function: Patent airway with normal (patient baseline) respiratory exam Cardiovascular Function: Hemodynamically Stable Hydration Status: Adequately Hydrated Nausea & Vomiting: No Nausea or Vomiting Pain: Pt. Denies Any Pain Peripheral Nerve Block: Patient did not receive a nerve block
[2022-09-08 09:39] VITALS: BP 165/89; PULSE 52; RESP 16; TEMP 36.5; O2SAT 98
== END 2022-09-08 10:00 | disposition home or self-care (01) ==
PROVIDERS: PCP Nurse Practitioner; Visit Provider Surgery
PROC: 0DJ68ZZ Inspection of Stomach, Via Natural or Artificial Opening Endoscopic (ICD-10-PCS; CPT 43235; principal; 2022-09-08 09:00)
DX: K21.9 Gastro-esophageal reflux disease without esophagitis (principal); K20.90 Esophagitis, unspecified without bleeding; K29.70 Gastritis, unspecified, without bleeding; K22.89 Other specified disease of esophagus
CPT/HCPCS: 43239; 88305

== ENCOUNTER → 2022-09-27 09:19 | Outpatient (BNVA) | payer MEDICARE, MEDICAID, SELFPAY | PROVIDERS: Referring Provider Nurse Practitioner; Visit Provider Surgery | DX: Z48.815 Encounter for surgical aftercare following surgery on the digestive system (principal) | CPT/HCPCS: 99212; 99213 ==

== ENCOUNTER → 2023-03-31 08:17 | Outpatient (BNVA) | payer MEDICARE, SELFPAY | PROVIDERS: PCP Nurse Practitioner; Referring Provider Nurse Practitioner; Visit Provider Physical Therapy Assistant | DX: Z12.11 Encounter for screening for malignant neoplasm of colon (principal); Z80.0 Family history of malignant neoplasm of digestive organs ==

== ENCOUNTER 2023-05-30 07:34 | Day surgery (SDC) | payer MEDICARE, MEDICAID, SELFPAY ==
--- NOTE | 2023-05-30 06:24 | W.ANESPRE ---
General Info Date of Service Date Performed: 05/30/23 Height: 5 ft 6 in Weight: 68.039 kg Body Mass Index (BMI): 24.2 Surgical Procedure: Operation Date: 05/30/23 09:20 Proposed Procedure Side Surgeon p Leticia Gutierrez MD Meds Allergies and Home Medications Allergies Allergy/AdvReac Type Severity Reaction Status Date / Time amitriptyline AdvReac Intermediate I didnt Verified 05/30/23 07:48 like the feeling Home Medication Medication Instructions Recorded cyanocobalamin (vitamin B-12) 1,000 mcg IM Q28 DAYS #1 vial 06/07/12 1,000 mcg/mL injection solution aspirin 81 mg chewable tablet 81 mg PO DAILY 04/26/17 etanercept 25 mg (1 mL) 25 mg subcut QWEEK 04/09/19 subcutaneous powder for solution (Enbrel) diclofenac sodium 1 % topical gel 2 gm topical QID PRN 09/05/19 (Voltaren) simvastatin 40 mg tablet 40 mg PO DAILY #90 tabs 05/27/22 dexlansoprazole 60 mg 60 mg PO DAILY #90 caps 11/09/22 capsule,biphase delayed release celecoxib 200 mg capsule (Celebrex) 200 mg PO DAILY #90 caps 04/12/23 hydrochlorothiazide 12.5 mg tablet See Rx Instructions .Route 04/26/23 .COMPLEX #90 tabs Current Visit Medications: Current Medications Generic Name Dose Route Start Last Admin Trade Name Freq PRN Reason Stop Dose Admin Ringer's Solution 1,000 mls @ 80 mls/hr 05/30/23 06:00 IV 06/26/23 23:59 INFUSION LUIZ IV Miscellaneous Supplies 1 each 05/30/23 06:00 Iv Access IV 06/26/23 23:59 DIRECTED LUIZ Sodium Chloride 0 ml 05/30/23 06:00 Normal Saline Flush 10 Ml Syr IV 06/26/23 23:59 PRN PRN Sodium Chloride 0 ml 05/30/23 06:00 Normal Saline 10 Ml Vial IJ 06/26/23 23:59 DIRECTED PRN Sterile Water 0 ml 05/30/23 06:00 Water,Injection,Sterile 10 Ml Vial IJ 06/26/23 23:59 DIRECTED PRN PFSH Active Problems Active Problems: Problem Status Onset Code Encounter for screening colonoscopy Z12.11 GERD (gastroesophageal reflux disease) K21.9 Gastritis K29.70 Adjustment disorder with depressed mood 06/21/12 F43.21 Anemia, unspecified 06/14/12 D64.9 Other vitamin B12 deficiency anemia 06/14/12 D51.8 Chronic cough 03/29/17 R05 Cough 07/27/12 R05 Unspecified essential hypertension 06/14/12 I10 Hematuria 07/26/14 R31.9 Long-term use of immunosuppressant medication 03/08/17 Z79.899 Osteoarth NOS-unspec 06/08/11 M19.90 Osteoarth NOS-l/leg 06/08/11 Reflux esophagitis 06/14/12 K21.0 Raynaud's syndrome 01/04/13 I73.00 Ankylosing spondylitis 06/14/12 M45.9 Insomnia G47.00 Poor memory R41.3 MCI (mild cognitive impairment) 02/2019 G31.84 Cough R05 Depression F32.9 Anxiety F41.9 Encounter for screening laboratory testing for COVID-19 virus Z11.59 IFG (impaired fasting glucose) R73.01 Fatigue R53.83 Soft tissue mass M79.89 Broken teeth S02.5XXA Hyperlipidemia E78.5 Chronic pain syndrome G89.4 Osteoporosis M81.0 Fatigue R53.83 Elevated ferritin 02/04/22 R79.89 GERD (gastroesophageal reflux disease) K21.9 Epigastric pain R10.13 Medical History Medical History Hypertension Fibromyalgia FLORIN (obstructive sleep apnea) (04/14/17) Hyperlipidemia (06/14/12) PCEq CV risk 9.7% LDL baseline 145 Chronic pain syndrome (06/14/12) chronic back pain, ankylosing spondylitis Medical History Comments:: Pt. states his niece is allergic to it, she quit breathing and they had to revive her, not sure what it was Pt. states he has had anesthesia and been fine in the past with it Surgical History Surgical History History of esophagogastroduodenoscopy (~09/08/22) Hx of arthroscopy of shoulder Right rotator cuff repair. cystourethroscopy (07/26/14) Colonoscopy - IV Sedation (04/23/13) Tobacco Smoking/Tobacco Use Status: Never Second hand exposure: No Alcohol Alcohol Intake: former Substance Use Substance use: Never Substance use type: does not use Vital Signs and Lab Results Vital Signs Most Recent Vital Signs in EMR: Temp Pulse Resp BP Pulse Ox 36.5 C 77 16 154/100 H 98 05/30/23 07:51 05/30/23 07:51 05/30/23 07:51 05/30/23 07:51 05/30/23 07:51 Lab Results Blood Type / Crossmatch: No Data to Display Complete Blood Count: No Data to Display Complete Metabolic Panel: No Data to Display Liver Function Panel: No Data to Display Coagulation Panel: No Data to Display Cardiac Panel: No Data to Display Arterial Blood Gas: No Data to Display Venous Blood Gas: No Data to Display Pancreas Panel: No Data to Display Thyroid Panel: No Data to Display Infectious Disease: No Data to Display Blood Cultures: No Data to Display Toxicology Panel: No Data to Display Imaging and Studies Imaging and Studies Study information below may be from another EMR and interpreted by another provider. Please see original notes in EMR for more complete details. Stress Test Summary: 03/24: neg stress. Echocardiogram Summary: 03/24: LVEF 60-65%, PAS 30-40 mmhg. Pulmonary Function Summary: 11/26: normal PFTs. Anesthesia Assessment and Plan Anesthesia History Personal History: No History of Anesthesia Complications Family History: Family History Unknown Exercise Tolerance Exercise Tolerance: Metabolic Equivalents>4 Cardiac & Pulmonary Exam Cardiac Exam: Normal S1/S2 Heart Sounds Pulmonary Exam: Clear Bilateral Breath Sounds Implantable Cardiac Device Does patient have a Pacemaker or an ICD?: No Airway Exam Known Difficult Airway: No Mallampati Class: 2 Mouth Opening: Normal (> 3cm) Thyromental Distance: Greater than 3 cm Neck Range of Motion: Full ROM Neck Circumference: Normal Teeth Condition: Normal Dentition ASA Classification ASA Score: ASA 2 Emergency Case?: No NPO Status NPO Status: NPO Clears >2 hours, Solids >8 hours Anesthesia Plan Resuscitation Status: Full Code Anesthesia Technique: General Anesthesia Airway Planned: Natural Airway Monitors Used: Standard Monitors Preoperative Comments:: 62 yo male for colo. Sig PMHx: HTN (HCTZ), GERD (dexlansoprazole, is much better lately), ankylosing spondylitis (embrel), mild cognitive impairment. depression. never smoker. Previous Anes: - EGD, prop, natural airway.
[2023-05-30 07:51] VITALS: BP 154/100; PULSE 77; RESP 16; TEMP 36.5; O2SAT 98
[2023-05-30] MEDS: Lactated Ringers 1,000 ML 80 ML IV (08:06)
[2023-05-30 08:30] VITALS: BMI 24.2
--- NOTE | 2023-05-30 09:00 | SCONE_ITS ---
Date of service: 05/30/23 Time of Service: 09:00 Assessment and Plan Assessment and plan (1) Encounter for screening colonoscopy: Status: Acute Assessment and plan: 62-year-old man due for surveillance colonoscopy. He will be on a 5-year surveillance interval after today at minimum because of the sisters history that has developed. History of Present Illness Narrative: 62-year-old man is due for surveillance colonoscopy. He has no symptoms. He has not had any problems with his bowel habits or any changes. His last colonoscopy was reportedly normal. In between his last colonoscopy and today, his sister has developed colorectal cancer. He says on occasion he has left?sided groin discomfort but he does not know why and its only sometimes and rare. Unrelated to bowel movements. He has never had intra-abdominal surgery. [facility] All Active Problems Encounter for screening colonoscopy (Acute) GERD (gastroesophageal reflux disease) (Chronic) Gastritis (Acute) Adjustment disorder with depressed mood (Acute 06/21/12) Anemia, unspecified (Chronic 06/14/12) Other vitamin B12 deficiency anemia (Chronic 06/14/12) Chronic cough (Acute 03/29/17) Cough (Acute 07/27/12) Unspecified essential hypertension (Acute 06/14/12) Hematuria (Chronic 07/26/14) neg US kidney (except non-obst stone 06/2014; neg cystocopy D Karthikeyan [facility] 07/26/14 Long-term use of immunosuppressant medication (Acute 03/08/17) Osteoarth NOS-unspec (Chronic 06/08/11) 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) Reflux esophagitis (Chronic 06/14/12) Raynaud's syndrome (Chronic 01/04/13) Ankylosing spondylitis (Acute 06/14/12) Dr Clancy [facility] 08/18/18 Dr Hickman [facility] Rheum 11/01/18 F/U [facility] Rheum Insomnia (Acute) Poor memory (Chronic) MCI (mild cognitive impairment) (Chronic 02/2019) Neuro [facility] 02/16/19 Cough (Acute) Depression (Chronic) Anxiety (Chronic) Encounter for screening laboratory testing for COVID-19 virus (Acute) IFG (impaired fasting glucose) (Acute) Fatigue (Acute) Soft tissue mass (Acute) Broken teeth (Acute) Hyperlipidemia (Acute) Chronic pain syndrome (Chronic) Osteoporosis (Chronic) Fatigue (Acute) Elevated ferritin (Acute 02/04/22) GERD (gastroesophageal reflux disease) (Chronic) Epigastric pain (Acute) Medical History Hypertension Fibromyalgia FLORIN (obstructive sleep apnea) (04/14/17) Hyperlipidemia (06/14/12) PCEq CV risk 9.7% LDL baseline 145 Chronic pain syndrome (06/14/12) chronic back pain, ankylosing spondylitis Surgical History History of esophagogastroduodenoscopy (~09/08/22) Hx of arthroscopy of shoulder Right rotator cuff repair. cystourethroscopy (07/26/14) Colonoscopy - IV Sedation (04/23/13) Family History Father Heart disease of CHF Mother History of Coumadin therapy Social History Smoking/Tobacco Use Status: Never Second Hand Exposure: No Smoking risk assessment performed?: Yes Alcohol Intake: former Drug use: Never Substance use type: does not use Caregiver/Support person: No Foster care: No Household members: spouse and other Details: 2 Housing: house Number of Children: 2 Communication Needs: None current occupation: disabled Current gender identity: male What is your relationship status?: Panel score (0-1 are the most socially isolated patients): 1 What type of physical activity do you participate in: walking Duration: 30-45 minutes/day Frequency: 3-4 times per week Do you feel safe at home: Yes Additional Social history: unable to assess privately Exam Narrative Exam Narrative: General: Nontoxic, comfortable and interactive Neuro: Alert and oriented x 3 Psych: Good mood and affect, good insight and understanding into his condition Chest: Nonlabored breathing and no wheezing Heart: Regular Results Last Vital Signs Temp 97.7 F 05/30/23 07:51 Pulse 77 05/30/23 07:51 Resp 16 05/30/23 07:51 BP 154/100 H 05/30/23 07:51 Pulse Ox 98 05/30/23 07:51
--- NOTE | 2023-05-30 09:27 | BOWEL_PTH ---
PATIENT: Erasto Chapman LOC: [facility] U#:[id number] AGE/SX: 62/M ROOM: RE05/30/[address]: Gideon Gutierrez : 1960 BED: DIS: 05/30/2023 SPEC #: [id number] RECD: 05/30/23 12:14 STATUS: EMRE Alia #: [id number] BESSIE: 05/30/23 09:[address]: Gideon Gutierrez DEPT: Surgical Specimen RECD BY: Lorie Ferro ENTERED: 05/30/23 12:15 SP TYPE: Bowel OTHR DR: Maureen Lua APRN Tissues: 1 - BIOPSY BOWEL 2 - BIOPSY BOWEL Procedures: GROSS AND MICRO LEVEL 4 Comments: [id number]
[2023-05-30 09:46] VITALS: BP 119/88; PULSE 71; RESP 16; TEMP 36.8; O2SAT 97
--- NOTE | 2023-05-30 09:50 | COLE_ITS ---
Date of service: 05/30/23 Time of Service: 09:50 Colonoscopy Report Procedure Description: PROCEDURES PERFORMED: 1. Colonoscopy with hot snare polypectomy x2 PREOPERATIVE DIAGNOSIS: Surveillance colonoscopy POSTOPERATIVE DIAGNOSIS: Colon polyps, sigmoid diverticulosis, grade 1 internal hemorrhoids SURGEON: Rk Gutierrez MD INDICATION for procedure: The patient is a 62-year-old man with a family history of colon cancer in his sister. He has not had prior findings on his previous colonoscopies. He has no symptoms. FINDINGS: The terminal ileum was normal. In the descending colon a 7-10 mm sessile polyp was removed with hot snare technique. Further along in the s igmoid colon, actually within a diverticulum, another 3-5 mm pedunculated polyp was removed with hot snare technique. I attempted to ablate the base of this polyp area gently with the tip of the hot snare in order to ensure no regrowth. He has mild diverticular disease isolated to only the sigmoid colon. He has grade 1 internal hemorrhoids. SURVEILLANCE interval/FOLLOW-UP: 3 years because of the family history and the findings today. SPECIMENS: yes EBL: Minimal COMPLICATIONS: None QUALITY of prep: Excellent Procedure in detail: The patient gave written consent and was in agreement with the indications, the potential risks as well as the benefits of the procedure. They were taken to the endoscopy suite and laid in the left lateral decubitus position. A timeout was performed and anesthesia was administered which was tolerated well. I started the procedure. Digital rectal and visual examination was performed and grossly within normal limits. A well-lubricated flexible colonoscope was then introduced and passed without any notable difficulty all the way to the cecum identified by the ileocecal valve and the appendiceal orifice. The terminal ileum was briefly intubated and looked normal. The scope was then slowly withdrawn with the above-noted findings. The patient tolerated the procedure well and was taken to the PACU in hemodynamically stable condition.
--- NOTE | 2023-05-30 09:52 | W.PM.DSUDISC ---
Date of service: 05/30/23 Time of Service: 09:52 Discharge Plan Disposition Patient Disposition: Home Condition: Good Discharge Details Attending Provider: Gideon Gutierrez Primary Care Provider: Maureen Lua Home Meds and New Rx's Prescriptions: No Action dexlansoprazole 60 mg capsule,biphase delayed releas 60 mg PO DAILY Qty: 90 0RF Enbrel 25 mg (1 mL) recon soln 25 mg SC QWEEK simvastatin 40 mg tablet 40 mg PO DAILY Qty: 90 3RF Rx Instructions: to lower cholesterol celecoxib [Celebrex] 200 mg capsule 200 mg PO DAILY Qty: 90 1RF cyanocobalamin (vitamin B-12) 1,000 MCG/1 ML solution 1,000 mcg IM Q28 DAYS Qty: 1 aspirin 81 MG tablet,chewable 81 mg PO DAILY diclofenac sodium [Voltaren] 1 % gel 2 gm TP QID PRN Rx Instructions: FOR PERIPHERAL JOINT PAIN hydrochlorothiazide 12.5 mg tablet See Rx Instructions .ROUTE .COMPLEX Qty: 90 3RF Dose Instruction: TAKE ONE TABLET BY MOUTH EVERY DAY Rx Instructions: TAKE ONE TABLET BY MOUTH EVERY DAY Discharge Instructions Additional Instructions: FINDINGS: A couple of polyps were found and removed today. This is the reason we do the colonoscopies. They are nothing to worry about but they did get completely removed and will be looked at under the microscope. Because of your family history and these findings today, you should have another colonoscopy done in 3 years. Separately, mild diverticular disease and mild hemorrhoid disease was found today. These are common, benign conditions and nothing needs to be done about them. Stand Alone Forms: Anesthesia Discharge Inst., DSU Post op Instructions, Sammy Mcqueen (DSU), Colonoscopy Post Instructions Activity:: Activity as Tolerated Diet:: As Tolerated DS: Diagnosis Discharge Diagnosis (1) Encounter for screening colonoscopy: Status: Acute
[2023-05-30 09:57] VITALS: BP 137/95; PULSE 64; RESP 18; TEMP 36.6; O2SAT 98
--- NOTE | 2023-05-31 06:54 | W.ANESPOSTOP ---
Postoperative Evaluation Date, Time and Location Date Performed: 05/30/23 Time Performed: 09:50 Patient Location: Day Surgery Unit Vital Signs Most Recent Imported Vital Signs: Most Recent Vital Signs Temp Pulse Resp BP Pulse Ox 36.6 C 64 18 137/95 H 98 05/30/23 09:57 05/30/23 09:57 05/30/23 09:57 05/30/23 09:57 05/30/23 09:57 Pain Score Most Recent Pain Score: Most Recent Pain Score Pain Level 0 05/30/23 09:46 Assessment Mental Status: Awake (Alert & Oriented to Patient Baseline) Airway and Respiratory Function: Patent airway with normal (patient baseline) respiratory exam Cardiovascular Function: Hemodynamically Stable Hydration Status: Adequately Hydrated Nausea & Vomiting: No Nausea or Vomiting Pain: Pt. Denies Any Pain Peripheral Nerve Block: Patient did not receive a nerve block
== END 2023-05-30 10:22 | disposition home or self-care (01) ==
PROVIDERS: PCP Nurse Practitioner; Visit Provider Student in an Organized Health Care Education/Training Program
PROC: 0DJD8ZZ Inspection of Lower Intestinal Tract, Via Natural or Artificial Opening Endoscopic (ICD-10-PCS; CPT 45378; principal; 2023-05-30 09:15)
DX: Z12.11 Encounter for screening for malignant neoplasm of colon (principal); K64.0 First degree hemorrhoids; D12.4 Benign neoplasm of descending colon; K57.30 Diverticulosis of large intestine without perforation or abscess without bleeding; I10 Essential (primary) hypertension; M45.9 Ankylosing spondylitis of unspecified sites in spine; F32.9 Major depressive disorder, single episode, unspecified; G31.84 Mild cognitive impairment of uncertain or unknown etiology; Z80.0 Family history of malignant neoplasm of digestive organs; K63.89 Other specified diseases of intestine
CPT/HCPCS: 45385; 00123; 88305; J2704

== ENCOUNTER 2023-09-01 01:21 | Outpatient (CLI) | payer MEDICARE, MEDICAID, SELFPAY ==
[2023-09-01 09:01] LABS: Abs Immature Grans 0.01 10^3/uL (0.0-0.06); Absolute Basophil Count 0.02 10^3/uL (0.0-0.2); Absolute Eosinophil Count 0.09 10^3/uL (0.0-0.7); Absolute Lymphocyte Count 1.52 10^3/uL (1.2-3.4); Absolute Monocyte Count 0.48 10^3/uL (0.1-0.8); Absolute Neutrophil Count 2.69 10^3/uL (1.2-6.7); Basophils % 0.4 %; Eosinophils % 1.9 %; HCT 45.9 % (40.0-50.0); HGB 16.2 g/dL (13.5-17.5); Immature Grans % 0.2 %; Lymphocytes % 31.6 %; MCH 32.5 pg (27.0-33.0); MCHC 35.3 % (32.0-36.0); MCV 92 fL (80-95); Neutrophils % 55.9 %; Platelet Count 148 10^3/uL (130-400); RBC 4.99 10^6/uL (4.36-5.78); RDW 12.9 % (11.8-14.1); RDW-SD 43.3 fL; WBC 4.81 10^3/uL (4.4-10.8)
[2023-09-01 09:03] LABS: ESR 2 mm/hr (0-20)
[2023-09-01 09:26] LABS: C-Reactive Protein < 0.50 mg/dL (<or=0.5)
[2023-09-01 09:30] LABS: ALT 66 U/L (16-63); AST 39 U/L (15-37); Albumin 4.4 g/dL (3.4-5.0); Alkaline Phosphatase 113 U/L (46-116); Anion Gap 8.1 mmol/L (3-11); BUN 18 mg/dL (7-18); Bilirubin, Total 0.86 mg/dL (0.2-1.0); CO2 31.9 mmol/L (21.0-32.0); CREATININE 1.2 mg/dL (0.70-1.30); Calculated LDL 145 mg/dL (<100); Chloride 103 mmol/L (98-107); Cholesterol 202 mg/dL (<200); Glucose 111 mg/dL (74-106); HDL Cholesterol 46 mg/dL (40-60); Potassium 3.6 mmol/L (3.5-5.1); Sodium 143 mmol/L (136-145); Total Protein 7.9 g/dL (6.4-8.2); Triglyceride 58 mg/dL (<150)
== END 2023-09-01 01:22 | disposition home or self-care (01) ==
LOC: LBO 01:22
PROVIDERS: PCP Nurse Practitioner; Visit Provider Internal Medicine
DX: I10 Essential (primary) hypertension (principal); E78.5 Hyperlipidemia, unspecified; M45.9 Ankylosing spondylitis of unspecified sites in spine; Z79.899 Other long term (current) drug therapy
CPT/HCPCS: 36415; 80053; 80061; 85652; 85025; 86140

== ENCOUNTER 2023-11-02 03:52 | Outpatient (CLI) | payer MEDICARE, MEDICAID, SELFPAY ==
--- OUTSIDE RECORDS SUMMARY | 2023-11-02 04:03 | XMS_ITS | Clinical Summary ---
Author Organization [facility] Address [facility] [place] [address] Care Team Providers Care Test Center Administrator Name Role Phone Maureen Lua APRN Primary Care Provider [phone] Allergies No known active allergies Medications Medication Sig Dispensed Refills Start Date End Date Status dexlansoprazole (DEXILANT) 60 mg Cap, Delayed Rel., Multiphasic Take 60 mg by mouth daily. Active simvastatin (ZOCOR) 40 mg Tablet Take 40 mg by mouth nightly. Active aspirin 81 mg Tablet, Chewable Take 81 mg by mouth Daily. Active cyanocobalamin, vitamin B-12, 1,000 mcg Tablet Take 1,000 mcg by mouth Daily. Active HYDROcodone-acetami nophen (NORCO) 5-325 mg Tablet Take 1 tablet by mouth Every 4 hours as needed. Active ondansetron (ZOFRAN-ODT) 4 mg Tablet, Rapid Dissolve as needed. 07/07/2018 Active cholecalciferol, Vitamin D3, 50 mcg (2,000 unit) Capsule Take by mouth. Active EnbreL SureClick Pen Injector Inject 50 mg subcutaneously once a week. 12 mL 3 04/09/2020 Active hydroCHLOROthiazide (Hydrodiuril) 12.5 mg Tablet Take 12.5 mg by mouth daily. Active folic acid (Folvite) 1 mg Tablet Take 1 mg by mouth daily. Active cyanocobalamin, Vitamin B-12, 1,000 mcg/mL Solution Inject 1,000 mcg as directed every 30 days. Receives in addition to oral replacement Active multivitamin (THERAGRAN) Tablet Take 1 tablet by mouth daily. Active naproxen (NAPROSYN) 500 mg Tablet Take 500 mg by mouth 2 times daily (with meals). As needed Active Active Problems Problem Noted Date Diagnosed Date Ankylosing spondylitis 09/01/2018 Thoracic back pain 09/01/2018 Neck pain 09/01/2018 Microscopic hematuria 07/26/2014 Nephrolithiasis 07/26/2014 Immunizations Name Administration Dates Next Due Influenza Split Virus (incl. Purified Surface An tigen) 12/05/2012 Social History Tobacco Use Types Packs/Day Years Used Date Smoking Tobacco: Never Smokeless Tobacco: Never Alcohol Use Standard Drinks/Week Comments Not Currently 0 (1 standard drink = 0.6 oz pur e alcohol) Overall Financial Resource Strain (CARDIA) Answe r Date Recorded How hard is it for you to pa y for the very basics like food, housing, medical care, and heating? Somewhat hard 11/26/2021 Hunger Vital Sign Answer Date Recorded Within the past 12 months, y ou worried that your food would run out before you got the money to buy more. Sometimes true Ran Out of Food in the Last Year Not on file 11/26/2021 PRAPARE - Transportation Answer Date Re corded In the past 12 months, has l ack of transportation kept you from medical appointments or from getting medications? No 11/06 In the past 12 months, has l ack of transportation kept you from meetings, work, or from getting things needed for daily living? No 11/26/2021 Housing Stability Vital Sign Answer Ron e Recorded In the last 12 months, was t here a time when you were not able to pay the mortgage or rent on time? No 11/26/2021 In the last 12 months, how many places have you lived? 1 11/26/2021 In the last 12 months, was t here a time when you did not have a steady place to sleep or slept in a detention (including now)? No 11/26/2021 Sex and Gender Information Value Date Recorded Sex Assigned at Not on file Gender Identity Not on file Sexual Orientation Not on file Last Filed Vital Signs Vital Sign Reading Time Taken Comments Blood Pressure 128/64 02/04/2022 8:27 AM EST Pulse 66 02/04/2022 8:27 AM EST Temperature 36.3 ??C (97.3 ??F) 02/04/2022 8:27 AM ES T Respiratory Rate 18 02/04/2022 8:27 AM EST Oxygen Saturation 99% 02/04/2022 8:27 AM EST Inhaled Oxygen Concentration - - Weight 64.9 kg (143 lb) 02/04/2022 8:27 AM EST Height 167.5 cm (5' 5.95) 02/04/2022 8:27 AM ES T Body Mass Index 23.12 02/04/2022 8:27 AM EST Plan of Treatment Health Maintenance Due Date Last Done Comments CT Colonography 1961 Colonoscopy 1960 Colorectal Cancer Screening 1960 FIT DNA 1961 FIT 1960 Sigmoidoscopy (10 year) with FIT yearly 1961 Sigmoidoscopy 1960 HIV screen 10/30/1979 Hepatitis C Screening 10/30/1979 Tdap adult 1980 Tetanus vaccine 1980 Zoster vaccine (1 of 2) 10/30/2011 Advance Directive 2016 Covid-19 Vaccine ( - season) 2022 Influenza (Flu) vaccine (1 o f 1 - Influenza standard series) 11/06/2023 Care Teams Test Center Administrator Relationship Specialty Start Date End Date Maureen Lua APRN [address] [place] [address] PCP - General Internal Medicine 08/18/18
--- OUTSIDE RECORDS SUMMARY | 2023-11-02 04:03 | XMS_ITS | Encounter Summary ---
Author Organization [facility] Address [facility] [place] [address] Care Team Providers Care Pin Cleaner Name Role Phone Maureen Lua APRN Primary Care Provider [phone] Encounter Details Date Type Department Care Team (Latest Contact Info) Description 02/04/2022 Travel Social History Tobacco Use Types Packs/Day Years [...] place to sleep or slept in a intermediate (including now)? No 11/26/2021 Sex and Gender Information Value Date Recorded Sex Assigned at Not on file Gender Identity Not on file Sexual Orientation Not on file documented as of this encounter Plan of Treatment Not on file documented as of this encounter Visit Diagnoses Not on filedocumented in this encounter Care Teams Pin Cleaner Relationship Specialty Start Date End Date Maureen Lua APRN [address] [place] [address] PCP - General Internal Medicine 08/18/18 documented as of this encounter
--- OUTSIDE RECORDS SUMMARY | 2023-11-02 04:03 | XMS_ITS | Encounter Summary ---
Author Organization [facility] Address [facility] [place] [address] Care Team Providers Care Senior Analytic Consultant Name Role Phone Maureen Lua APRN Primary Care Provider [phone] Encounter Details Date Type Department Care Team (Late st Contact Info) Description 02/04/2022 8:30 AM EST Office Visit Hematology/Oncology at [address] [phone] Cristobal Chavez MD [facility] [address] [place] [address] Donya Oliveira APRN [facility] [address] [place] [address] Elevated ferritin Social History Tobacco Use Types Packs/Day Years [...] place to sleep or slept in a alf (including now)? No 11/26/2021 Sex and Gender Information Value Date Recorded Sex Assigned at Not on file Gender Identity Not on file Sexual Orientation Not on file documented as of this encounter Last Filed Vital Signs Vital Sign Reading [...] Mass Index 23.12 02/04/2022 8:27 AM EST documented in this encounter Progress Notes * Cristobal Chavez MD - 02/04/2022 8:30 AM EST Images from the original note were not included. The patient is a 61-year-old man who returns to the [place] hematology clinic. I originallysaw him on 11/26/2021. Please see that note for details. Briefly the patient had had a couple of elevated ferritin readings in the 5-600 range. He was a compound heterozygote for HFE mutation. The question was whether he had any evidence of iron overload versus his ferritin elevated because it was an inflammatory marker. He did not want a liver biopsy and he declined a quantitative phlebotomy but did accept an MRI to quantitate liver iron. He had his MRI done a few weeks ago and is here to review. Feels about the same. Using Naprosyn for his chronic arthritic problems. MRI [phone] [id number] 01/15/2022 Narrative & Impression EXAMINATION: MRI ABDOMEN WWO CONTRAST (GENERIC), MRI ADDITIONAL VIEW - BODY ?? CLINICAL HISTORY: Liver disease, chronic, fibrosis; please quantitate iron load in liver in pt with elevated ferritin ?? TECHNIQUE: MRI of the abdomen was performed without contrast on a 1.5 T magnet. Liver iron quantitation sequences were performed at a later date without contrast. ?? COMPARISON: None ?? FINDINGS: ?? Liver: Normal size and contour. No focal lesions on the T2 weighted images. ?? Right lobe: OTILIA 1: 2.35 mg Fe/g OTILIA 2: 2.51 mg Fe/g ?? Left lobe: OTILIA 3: 3.00 mg Fe/g OTILIA 4: 2.32 mg Fe/g ?? Results: Average liver iron concentration is within normal limits. (Normal values: <3 mg Fe/g dry weight, or approximately <53 micromol/g dry weight) ?? Bile ducts: Nondilated. Gallbladder: No stones. Normal caliber wall. Pancreas: Normal in signal intensity. Spleen: Normal in size. Decreased signal intensity on in phase images. Adrenal glands: Normal. Kidneys: T2 hyperintense, T1 hypointense nonenhancing cyst in the left upper pole measuring 2.9 cm. Other small T2-hyperintense cysts throughout both kidneys. No suspicious lesions. No hydronephrosis. Bowel: No dilated small or large intestine in the upper abdomen. ?? Lymph Nodes: No enlarged nodes. Peritoneum and mesentery: No ascites or focal fluid collection. Osseous structures: No suspicious marrow signal abnormalities. ?? IMPRESSION 1. Normal liver iron concentration. 2. Suggestion of increased iron content within the spleen, not quantifiable by imaging. ?? I have personally reviewed the image(s) and the resident's interpretation and agree with the findings, Jay García MD at 01/15/2022 5:09 PM ?? Thank you for letting us participate in the care of this patient. If you are a health care provider and have any questions regarding this report, please contact the number below. For patients who have questions please contact the health health care attorney that requested your imaging first. assessment 61-year-old man who is a compound heterozygote for HFE gene mutation studies and has an elevated ferritin. Quantitative liver iron studies do not suggest elevated iron in the liver so I do not think he has true hereditary hemochromatosis. Given that he has not accumulated iron in his liver by the age of 61 I do not think he will be at risk in the future for developing organ toxicity from iron overload. He could donate blood at the [facility] if he wishes to do so and try to reduce his ferritin but I do not think that that is necessary. I asked him to keep a copy of the MRI report in his file and share that with his future providers if they report concerns about iron overload. I did not make a return appointment but would be happy to answer any questions. documented in this encounter Plan of Treatment Not on file documented as of this encounter Visit Diagnoses Diagnosis Elevated ferritin Other abnormal blood chemistry documented in this encounter Care Teams Senior Analytic Consultant Relationship Specialty Start Date End Date Maureen Lua APRN [address] [place] [address] PCP - General Internal Medicine 08/18/18 documented as of this encounter
--- OUTSIDE RECORDS SUMMARY | 2023-11-02 04:04 | XMS_ITS | Encounter Summary ---
[place] [address] Care Team Providers Care Mobile Security Architect Name Role Phone Maureen Lua APRN Primary Care Provider Encounter Details Date Type Department Care Team (Late st Contact Info) Description 05/17/2019 Specialty [place] [address] Alessandro Mccormick Social History Tobacco Use Types Packs/Day Years Used Date Smoking Tobacco: Never Smokeless Tobacco: Never Sex and Gender Information Value Date Recorded Sex Assigned at Not on file Gender Identity Not on file Sexual Orientation Not on file documented as of this encounter Plan of Treatment Not on file documented as of this encounter Visit Diagnoses Not on filedocumented in this encounter Care Teams Mobile Security Architect Relationship Specialty Start Date End Date Maureen Lua APRN [address] [place], [place] [address] PCP - General Internal Medicine 08/18/18 documented as of this encounter
--- OUTSIDE RECORDS SUMMARY | 2023-11-02 04:04 | XMS_ITS | Encounter Summary ---
[place] [address] Care Team Providers Care Aluminum Molder Name Role Phone Maureen Lua APRN Primary Care Provider [phone] Reason for Visit * Reason Comments Specialty Refill Management Encounter Details Date Type Department Care Team (Late st Contact Info) Description 09/16/2020 Specialty [place] [id number] Adelita Amador Logan Social History Tobacco Use Types Packs/Day Years Used Date Smoking Tobacco: Never Smokeless Tobacco: Never Alcohol Use Standard Drinks/Week Comments Not Currently 0 (1 standard drink = 0.6 oz pur e alcohol) Sex and Gender Information Value Date Recorded Sex Assigned at Not on file Gender Identity Not on file Sexual Orientation Not on file documented as of this encounter Progress Notes * Adelita Amador RPH - 09/16/2020 12:34 PM EDT Clinical Management Plan: Refill Specialty Pharmacy Consultation; Adelita Amador [place] Comprehensive Medication Management (CMM) Erasto Oswald Chapman Mr. Erasto Chapman is a 59 y.o. (1960) male who was contacted in regard to a specialty medication refill reminder. Contact made with patient regarding Enbrel. A review of the medication therapywas performed. The medication was refilled as scheduled, and all medication related questions and concerns were addressed. The specialty pharmacy staff will follow up with the patient 5-7 days prior to next refill. Was a change made to the Care Plan: no If yes, should the medication be held: No Assessment and Recommendations: Title Type of Medication Management: chronic disease management, targeted medication review Referred By: provider Recipient: beneficiary Provider: plan sponsor pharmacist Visit Type: [facility] Follow-up Method of Contact: by telephone Cognitive Ability: good Cognitive Impairment Status Verified this Year: no Allergies and Drug intolerance: No Known Allergies Medication Reconciliation Discrepancies (compared to [facility] med list) -Is now on Lyrica 50mg for 2 weeks, then increase to 100mg Specialty Pharmacy Refill Questionnaire Refill Questionnaire 09/16/2020 What is the name of the specialty medication you are refilling? Enbrel Are you taking any new medications? Yes Please explain Lyrica Any new medical condition? No Any new allergies? No Any missed doses since your last fill? No Any new side effects that are bothersome? No What date will you need this fill by? 09/28/2020 Adherence: Medication Adherence Patient reported X missed doses in the last month: 0 Any gaps in refill history greater than 2 weeks in the last 3 months: no Demonstrates understanding of importance of adherence: yes Informant: patient Reliability of informant: reliable Provider-estimated medication adherence level: 90-100% Reasons for non-adherence: no problems identified Adherence tools used: directed education Support network for adherence: family member Confirmed plan for next specialty medication refill: delivery by pharmacy Refills needed for supportive medications: not needed Pt understands no changes to current drug regimen were made at the appointment and that [facility] is providing recommendations (summary located at top of note) for provider review and follow up. Adelita Amador RPH 09/16/20 12:36 PM documented in this encounter Plan of Treatment Not on file documented as of this encounter Visit Diagnoses Not on filedocumented in this encounter Care Teams Aluminum Molder Relationship Specialty Start Date End Date Maureen Lua APRN [address] [place] [address] PCP - General Internal Medicine 08/18/18 documented as of this encounter
--- OUTSIDE RECORDS SUMMARY | 2023-11-02 04:04 | XMS_ITS | Encounter Summary ---
[place] [address] Care Team Providers Care Waitstaff Captain Name Role Phone Maureen Lua APRN Primary Care Provider Reason for Visit * Reason Comments Medication Management Patient Education Encounter Details Date Type Department Care Team (Late st Contact Info) Description 12/25/2020 Specialty [place] [phone] Kan Santacruz [facility] Social History Tobacco Use Types Packs/Day Years Used Date Smoking Tobacco: Never Smokeless Tobacco: Never Alcohol Use Standard Drinks/Week Comments Not Currently 0 (1 standard drink = 0.6 oz pur e alcohol) Sex and Gender Information Value Date Recorded Sex Assigned at Not on file Gender Identity Not on file Sexual Orientation Not on file documented as of this encounter Progress Notes * Kan Santacruz [facility] - 12/25/2020 1:38 PM EDT Clinical Management Plan: Transfer of Care/Discharge Specialty Services Specialty Pharmacy Consultation; Kan Santacruz [facility] Comprehensive Medication Management (CMM) Erasto Chapman [address] [facility] [phone] Telephone Information: Work Phone Not on file. Mobile Not on file. Is the patient transferring services to a different Specialty Pharmacy or discontinuing the medication? Transferring Services Medication: enbrel Reason for discontinuation or transfer: Now seeing doctor at [facility] and getting enbrel at [facility] Approximate date of discontinuation or transfer: 12/2020 Patient's response to therapy: effective Summary of services provided by [facility] Specialty: New start, Care Plan, Follow up, PHQ9 Summary of on-going needs: call [facility] Referral for additional services (if applicable): no Is patient aware of referral? no Instructions provided to patient about discharge/transfer: no Provider aware of discontinuation or transfer: yes Patient understands no changes to current drug regimen were made at the appointment and that [facility] isproviding recommendations (summary located at top of note) for provider review and follow up. Kan Santacruz RPH 12/25/20 1:39 PM documented in this encounter Plan of Treatment Not on file documented as of this encounter Visit Diagnoses Not on filedocumented in this encounter Care Teams Waitstaff Captain Relationship Specialty Start Date End Date Maureen Lua APRN [address] [facility] [place] [address] PCP - General Internal Medicine 08/18/18 documented as of this encounter
--- OUTSIDE RECORDS SUMMARY | 2023-11-02 04:04 | XMS_ITS | Encounter Summary ---
Author Organization [facility] Address [facility] [place] [address] Care Team Providers Care Balance Wheel Hand Filer Name Role Phone Maureen Lua APRN Primary Care Provider [phone] Encounter Details Date Type Department Care Team (Latest Contact Info) Description 01/01/2022 Travel Social History Tobacco Use Types Packs/Day [...] on filedocumented in this encounter Care Teams Balance Wheel Hand Filer Relationship Specialty Start Date End Date Maureen Lua APRN [address] [place] [address] PCP - General Internal Medicine 08/18/18 documented as of this encounter
--- OUTSIDE RECORDS SUMMARY | 2023-11-02 04:04 | XMS_ITS | Encounter Summary ---
Author Organization [facility] Address [facility] [place] [address] Care Team Providers Care Restaurant Crew Name Role Phone Maureen Lua APRN Primary Care Provider Reason for Visit * Consultation (Routine) - Closed Specialty Diagnoses / Procedures Referred By Controse mary t Referred To Contact Hematology and Oncology Diagnoses Elevated ferritin level Maureen Lua APRN [address] [place] [address] St[facility] Hem Onc Office [address] [place] [phone] Referral ID Status Reason Start Date Expiration Date V isits Requested Visits Authorized [id number] Closed Consult, Test & Treat PCP Updated and/or Approved 10/27/2021 10/27/2022 6 6 Encounter Details Date Type Department Care Team (Late st Contact Info) Description 11/26/2021 2:00 PM EDT Office Visit Hematology/Oncology at [address] [phone] Cristobal Chavez MD [facility] [address] [place] [address] Elevated ferritin Social History Tobacco Use Types Packs/Day Years Used Date Smoking Tobacco: Never Smokeless Tobacco: Never Alcohol Use Standard Drinks/Week Comments Not Currently 0 (1 standard drink = 0.6 oz pur e alcohol) Overall Financial Resource Strain (CARDIA) Janice castillo Recorded How hard is it for you [...] place to sleep or slept in a senior care (including now)? No 11/26/2021 Sex and Gender Information Value Date Recorded Sex Assigned at Not on file Gender Identity Not on file Sexual Orientation Not on file documented as of this encounter Last Filed Vital Signs Vital Sign Reading Time Taken Comments Blood Pressure 133/72 11/26/2021 2:04 PM EDT Pulse 66 11/26/2021 2:04 PM EDT Temperature 36.7 ??C (98 ??F) 11/26/2021 2:04 PM EDT Respiratory Rate 18 11/26/2021 2:04 PM EDT Oxygen Saturation 100% 11/26/2021 2:04 PM EDT Inhaled Oxygen Concentration - - Weight 63 kg (139 lb) 11/26/2021 2:04 PM EDT Height 167.5 cm (5' 5.95) 11/26/2021 2:04 PM ED T Body Mass Index 22.47 11/26/2021 2:04 PM EDT documented in this encounter Progress Notes * Erna Chino RN - 11/26/2021 2:[address] Medical Oncology Note SOCIAL ASSESSMENT: See [facility] social assessment information entered. 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 [ ] yes [ ] no Local Pharmacy: FUNCTIONAL SCREENING: Balance difficulty: [x ]no [ ]yes At risk for fall: [x ] no [ ] yes If yes, actions implemented to prevent fall. Patient/family instructed to avoid independent ambulation. Use wheelchair and ask for assistance of staff while in the clinic. ADL [x ] no limits [ ] needs dressing assistance [ ] needs meal assistance Assistive device:[ ]none [ ]cane [ ]walker [ ]wheelchair [ ]other: explain PAIN ASSESSMENT: [ 4-5 ] out of 10. Chronic, multiple locations Location: Description: [ ] Dull [ ] Sharp [ ] Burning [ ] Throbbing [ ] Radiating [ ] Continuous [ ] Intermittent Aggravating Factors: [ ] Movement [ ] Position [ ] Immobility [ ] Other Alleviating Factors: [ ] Medication [ ] Positioning [ ] Other Current Pain Management Plan: [ ] Satisfied [ ] Not satisfied LEARNING STYLE: Learning Needs Assessment up to date (yearly) [11/26/21 ] TEACHING: __ NCI ???Chemotherapy and You?? and folder given __ Specific chemotherapy literature provided and reviewed with patient VASCULAR ACCESS ASSESSMENT: getting chemo? [ ]yes [x ]no Need port? [ ] yes [ x ] no * Cristobal Chavez MD - 11/26/2021 2:00 PM EDT Subjective Patient ID: Erasto Chapman is a 61 y.o. male. HPI The patient is a 61-year-old man referred by Maureen Lua APRN for consultation regarding elevatedferritin. I had a chance to review the available records and interview and examined the patient The patient has a long history of ankylosing spondylitis and is currently followed by rheumatology at [facility]. He was followed by [facility] rheumatology previously. He is also followed by a local air hammer stripper for chronic cough This is a consultation regarding some abnormal laboratories. The patient has no history of hepatitis. His hepatitis and HIV serologies in the past has been negative. He has been treated with Enbrel in the past. There are 3 ferritins to review. In 2017 his ferritin was normal at 300. In July 2021 it was 562 sean repeat in September 2021 his ferritin was 541. He did have genetic studies. 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 CRP on 10/08/2021 was 21.9 There is no family history of early liver disease. No cirrhosis. There is a family history of some cancer risk. Patient Active Problem List Diagnosis Code ??? Microscopic hematuria R31.29 ??? Nephrolithiasis N20.0 ??? Ankylosing spondylitis M45.9 ??? Thoracic back pain M54.6 ??? Neck pain M54.2 Current Outpatient Medications: ??? hydroCHLOROthiazide (Hydrodiuril) 12.5 mg Tablet, Take 12.5 mg by mouth daily., Disp: , Rfl: ??? folic acid (Folvite) 1 mg Tablet, Take 1 mg by mouth daily., Disp: , Rfl: ??? cyanocobalamin, Vitamin B-12, 1,000 mcg/mL Solution, Inject 1,000 mcg as directed every 30 days. Receives in addition to oral replacement, Disp: , Rfl: ??? multivitamin (THERAGRAN) Tablet, Take 1 tablet by mouth daily., Disp: , Rfl: ??? EnbreL SureClick Pen Injector, Inject 50 mg subcutaneously once a week., Disp: 12 mL, Rfl: 3 ??? cholecalciferol, Vitamin D3, 50 mcg (2,000 unit) Capsule, Take by mouth., Disp: , Rfl: ??? aspirin 81 mg Tablet, Chewable, Take 81 mg by mouth Daily., Disp: , Rfl: ??? cyanocobalamin, vitamin B-12, 1,000 mcg Tablet, Take 1,000 mcg by mouth Daily., Disp: , Rfl: ??? HYDROcodone-acetaminophen (NORCO) 5-325 mg Tablet, Take 1 tablet by mouth Every 4 hours as needed., Disp: , Rfl: ??? dexlansoprazole (DEXILANT) 60 mg Cap, Delayed Rel., Multiphasic, Take 60 mg by mouth daily., Disp: , Rfl: ??? simvastatin (ZOCOR) 40 mg Tablet, Take 40 mg by mouth nightly., Disp: , Rfl: ??? ondansetron (ZOFRAN-ODT) 4 mg Tablet, Rapid Dissolve, as needed., Disp: , Rfl: ??? zolpidem (AMBIEN) 5 mg Tablet, TAKE ONE TABLET BY MOUTH AT BEDTIME NEEDED FOR INSOMNIA, Disp: , Rfl: 0 No Known Allergies Social History Socioeconomic History ??? Marital status: Spouse name: Not on file ??? Number of children: Not on file ??? Years of education: Not on file ??? Highest education level: Not on file Occupational History ??? Not on file Tobacco Use ??? Smoking status: Never Smoker ??? Smokeless tobacco: Never Used Vaping Use ??? Vaping Use: Never used Substance and Sexual Activity ??? Alcohol use: Not Currently ??? Drug use: Not Currently ??? Sexual activity: Not on file Other Topics Concern ??? Not on file Social History Narrative ??? Not on file Social Determinants of Health Financial Resource Strain: Medium Risk ??? Difficulty of Paying Living Expenses: Somewhat hard Food Insecurity: Food Insecurity Present ??? Worried About Running Out of Food in the Last Year: Sometimes true ??? Ran Out of Food in the Last Year: Not on file Transportation Needs: No Transportation Needs ??? Lack of Transportation (Medical): No ??? Lack of Transportation (Non-Medical): No Physical Activity: Not on file Housing Stability: Low Risk ??? Unable to Pay for Housing in the Last Year: No ??? Number of Places Lived in the Last Year: 1 ??? Unstable Housing in the Last Year: No No family history on file. Review of Systems Constitutional: Negative for fatigue, fever and unexpected weight change. HENT: Negative for nosebleeds. Respiratory: Negative for cough and shortness of breath. Cardiovascular: Negative for chest pain and palpitations. Gastrointestinal: Negative for abdominal pain and diarrhea. Musculoskeletal: Positive for arthralgias. Negative for back pain. Skin: Negative for rash. Neurological: Negative for speech difficulty. Hematological: Negative for adenopathy. Does not bruise/bleed easily. All other systems reviewed and are negative. Objective Physical Exam Constitutional: General: He is in acute distress. HENT: Mouth/Throat: Mouth: Mucous membranes are moist. Eyes: General: No scleral icterus. Cardiovascular: Rate and Rhythm: Normal rate. Pulmonary: Effort: Pulmonary effort is normal. Musculoskeletal: General: No swelling. Skin: Findings: No rash. Neurological: Mental Status: He is alert. Psychiatric: Mood and Affect: Mood normal. Assessment and Plan 61-year-old man with a mild elevation of his ferritin in the setting of being a compound heterozygote. Most people who are compound heterozygous do not have a problem with iron overload. Less than 2%develop clinical signs of iron overload. Given that his ferritin was normal in 2017 it is unlikely that he has a long history of iron accumulation making me think he probably does not have hereditary hemochromatosis. The fact that he also has an inflammatory arthropathy that at various times has been controlled to various degrees. His most recent CRP was up to 21.9 suggesting there is some component of active inflammation. My clinical impression is that this is the most likely etiology of the elevated ferritin. I did acknowledge to the patient and his that it would require additional testing to be more certain about the iron status. The gold standard would still be a liver biopsy which is probably too invasive for the low risk that he appears to be at. We could consider an MRI of the liver to try to quantitate iron. We could also consider quantitative phlebotomy which could answer the question of how much iron was present and also start to iron unloaded him if it was elevated. He does not want to embark on phlebotomy at this point but would be accepting of a liver MRI. We will try to see if that can be done locally but I am assuming he will have to travel either to [facility] or [facility] for the MRI scan. I will plan to see him back after he has had his liver MRI in an attempt to quantitate his liver iron. Right now my impression is that he probably does not have true iron overload. documented in this encounter Plan of Treatment Not on file documented as of this encounter Visit Diagnoses Diagnosis Elevated ferritin Other abnormal blood chemistry documented in this encounter Care Teams Restaurant Crew Relationship Specialty Start Date End Date Maureen Lua APRN [address] [place] [address] PCP - General Internal Medicine 08/18/18 documented as of this encounter
--- OUTSIDE RECORDS SUMMARY | 2023-11-02 04:04 | XMS_ITS | Encounter Summary ---
[place] [address] Care Team Providers Care Milling General Superintendent Name Role Phone Maureen Lua APRN Primary Care Provider [phone] Reason for Referral * Diagnostic Test (Routine) - Closed Specialty Diagnoses / Procedures Referred By Contac t Referred To Contact Diagnoses Neck pain Ankylosing spondylitis, unspecified site of spine Procedures MRI Cervical Spine wo Contrast (Generic) Ney Hickman MD [facility] [place] [place] [address] Referral ID Status Reason Start Date Expiration Date V isits Requested Visits Authorized [id number] Closed Specialty Service Requested 01/05/2019 07/04/2019 1 1 Reason for Visit * Diagnostic Test (Routine) - Closed Specialty Diagnoses / Procedures Referred By Contac t Referred To Contact Diagnoses Neck pain Ankylosing spondylitis, unspecified site of spine Procedures MRI Cervical Spine wo Contrast (Generic) Ney Hickman MD [facility] [place] [address] [place] [address] Referral ID Status Reason Start Date Expiration Date V isits Requested Visits Authorized [id number] Closed Specialty Service Requested 01/05/2019 07/04/2019 1 1 Encounter Details Date Type Department Care Team (Latest Contact Info) Description 05/17/2019 9:25 AM EDT - 05/17/2019 11:59 PM EDT Hospital [place] [address] Ney Hickman MD [facility] [place] [address] Neck pain; Ankylosing spondylitis, unspecified site of spine Discharge Disposition: Home Social History Tobacco Use Types Packs/Day Years Used Date Smoking Tobacco: Never Smokeless Tobacco: Never Sex and Gender Information Value Date Recorded Sex Assigned at Not on file Gender Identity Not on file Sexual Orientation Not on file documented as of this encounter Medications at Time of Discharge Medication Sig Dispensed Refills Start Date End Date cholecalciferol, Vitamin D3, 50 mcg (2,000 unit) Capsule Take by mouth. aspirin 81 mg Tablet, Chewable Take 81 mg by mouth Daily. cyanocobalamin, vitamin B-12, 1,000 mcg Tablet Take 1,000 mcg by mouth Daily. HYDROcodone-acetamino phen (NORCO) 5-325 mg Tablet Take 1 tablet by mouth Every 4 hours as needed. ondansetron (ZOFRAN-ODT) 4 mg Tablet, Rapid Dissolve as needed. 07/07/2018 dexlansoprazole (DEXILANT) 60 mg Cap, Delayed Rel., Multiphasic Take 60 mg by mouth daily. simvastatin (ZOCOR) 40 mg Tablet Take 40 mg by mouth nightly. ENBREL SURECLICK Pen Injector Inject 50 mg subcutaneously once a week. 12 mL 3 01/29/2019 04/07/2020 zolpidem (AMBIEN) 5 mg Tablet TAKE ONE TABLET BY MOUTH AT BEDTIME NEEDED FOR INSOMNIA 0 08/06/2018 02/04/2022 lisinopril (PRINIVIL;ZESTRIL) 5 mg Tablet Take 5 mg by mouth daily. 11/26/2021 documented as of this encounter Plan of Treatment Not on file documented as of this encounter Procedures Procedure Name Priority Date/Time Associated Diagnosis Comments MRI CERVICAL SPINE WO CONTRAST Routine 05/17/2019 10:21 AM EDT Neck pain Ankylosing spondylitis, unspecified site of spine documented in this encounter Results * MRI Cervical Spine wo Contrast (Generic) (05/17/2019 10:21 AM EDT) Anatomical Region Laterality Modality C-spine Magnetic Resonan ce Impressions 05/17/2019 11:21 AM EDT Overall mild degenerative change in the cervical spine as described level by level in the report. Thank you for letting us participate in the care of this patient. For questions regarding this report, please contact the number below. ? Narrative 05/17/2019 11:21 AM EDT EXAMINATION: MRI CERVICAL SPINE WO CONTRAST (GENERIC) CLINICAL HISTORY: chronic cervical neck pain TECHNIQUE: MRI of the cervical spine performed without intravenous contrast administration. COMPARISON: No MRI comparison. Cervical spine plain radiographs 12/20/2018 reviewed FINDINGS: Cervical spine alignment is normal. Vertebral body height is maintained. Mild loss of disc space height at C3-C4. Visualized elements of the posterior fossa are normal. The cervical cord is normal in morphology and signal intensity. No appreciable osseous fusion. The vertebral artery flow voids are present. C2-C3: No central canal stenosis or neural foraminal narrowing. C3-C4: Small posterior disc bulge flattens the ventral aspect of the thecal sac. There is mild left-sided neural foraminal narrowing. No right-sided neural foraminal narrowing. C4-C5: Mild left-sided neural foraminal narrowing. No right-sided neural foraminal narrowing. No central canal stenosis. C5-C6: Small posterior disc bulge. Mild bilateral neural foraminal narrowing. A small posterior disc bulge flattens the ventral aspect of the thecal sac. C6-C7: No remarkable neural foraminal narrowing or central canal stenosis. C7-T1: No central canal stenosis or neural foraminal narrowing. Procedure Note Jimmie Velazquez MD - 05/17/2019 EXAMINATION: MRI CERVICAL SPINE WO CONTRAST (GENERIC) CLINICAL HISTORY: chronic cervical neck pain TECHNIQUE: MRI of the cervical spine performed without intravenous contrastadministration. COMPARISON: No MRI comparison. Cervical spine plain radiographs 12/20/2018 reviewed FINDINGS: Cervical spine alignment is normal. Vertebral body height is maintained.Mild loss of disc space height at C3-C4. Visualized elements of the posteriorfossa are normal. The cervical cord is normal in morphology and signalintensity. No appreciable osseous fusion. The vertebral artery flow voids are present. C2-C3: No central canal stenosis or neural foraminal narrowing. C3-C4: Small posterior disc bulge flattens the ventral aspect of thethecal sac. There is mild left-sided neural foraminal narrowing. No right-sidedneural foraminal narrowing. C4-C5: Mild left-sided neural foraminal narrowing. No right-sided neural foraminal narrowing. No central canal stenosis. C5-C6: Small posterior disc bulge. Mild bilateral neural foraminalnarrowing. A small posterior disc bulge flattens the ventral aspect of the thecalsac. C6-C7: No remarkable neural foraminal narrowing or central canalstenosis. C7-T1: No central canal stenosis or neural foraminal narrowing. IMPRESSION Overall mild degenerative change in the cervical spine as described levelby level in the report. Thank you for letting us participate in the care of this patient. Forquestions regarding this report, please contact the number below. Electronically signed by: CHRISTY Brambila [facility]([phone]), at 05/17/2019 11:21 AM Ney Hickman MD IMG MRI ORDERABLES documented in this encounter Visit Diagnoses Diagnosis Neck pain Cervicalgia Ankylosing spondylitis, unspecified site of spine documented in this encounter Care Teams Milling General Superintendent Relationship Specialty Start Date End Date Maureen Lua APRN [address] [place] [address] PCP - General Internal Medicine 08/18/18 documented as of this encounter
--- OUTSIDE RECORDS SUMMARY | 2023-11-02 04:04 | XMS_ITS | Encounter Summary ---
[place] [address] Care Team Providers Care Model Builder Display Name Role Phone Maureen Lua APRN Primary Care Provider [phone] Reason for Referral * Diagnostic Test (Routine) - Closed Specialty Diagnoses / Procedures Referred By Contac t Referred To Contact Radiology Diagnoses Elevated ferritin Procedures MRI Additional Views - Body Jay García MD [facility] [place] [address] [place] [address] Referral ID Status Reason Start Date Expiration Date V isits Requested Visits Authorized [id number] Closed Specialty Service Requested 01/04/2022 07/05/2023 1 1 Encounter Details Date Type Department Care Team (Late st Contact Info) Description 01/04/2022 Orders [place] [address] Jay García MD [facility] [place] [address] Elevated ferritin Social History Tobacco Use Types Packs/Day Years Used Date Smoking Tobacco: Never Smokeless Tobacco: Never Alcohol Use Standard Drinks/Week Comments Not Currently 0 (1 standard drink = 0.6 oz pur e alcohol) Overall Financial Resource Strain (CARDIA) Janice r Recorded How hard is it for you [...] place to sleep or slept in a fci (including now)? No 11/26/2021 Sex and Gender Information Value Date Recorded Sex Assigned at Not on file Gender Identity Not on file Sexual Orientation Not on file documented as of this encounter Plan of Treatment Not on file documented as of this encounter Results * MRI Additional Views - Body (01/15/2022 1:34 PM EST) Anatomical Region Laterality Modality Magnetic Resonan ce Impressions 01/15/2022 5:09 PM EST 1. ??Normal liver iron concentration. 2. ??Suggestion of increased iron content within the spleen, not quantifiable by imaging. I have personally reviewed the image(s) and the resident's interpretation and agree with the findings, Jay García MD at 01/15/2022 5:09 PM Thank you for letting us participate in the care of this patient. ??If you are a health care provider and have any questions regarding this report, please contact the number below. ??For patients who have questions please contact the health field care advocate that requested your imaging first. ? Electronically signed by: Jay García MD, [facility] ([phone]), at 01/15/2022 5:09 PM Narrative 01/15/2022 5:09 PM EST EXAMINATION: MRI ABDOMEN WWO CONTRAST (GENERIC), MRI ADDITIONAL VIEW - BODY CLINICAL HISTORY: Liver disease, chronic, fibrosis; please quantitate iron load in liver in pt with elevated ferritin TECHNIQUE: MRI of the abdomen was performed without contrast on a 1.5 T magnet. Liver iron quantitation sequences were performed at a later date without contrast. COMPARISON: None FINDINGS: Liver: Normal size and contour. No focal lesions on the T2 weighted images. Right lobe: OTILIA 1: 2.35 mg Fe/g OTILIA 2: 2.51 mg Fe/g Left lobe: OTILIA 3: 3.00 mg Fe/g OTILIA 4: 2.32 mg Fe/g Results: Average liver iron concentration is within normal limits. (Normal values: <3 mg Fe/g dry weight, or approximately <53 micromol/g dry weight) Bile ducts: Nondilated. Gallbladder: No stones. Normal [...] or large intestine in the upper abdomen. Lymph Nodes: No enlarged nodes. Peritoneum and mesentery: No ascites or focal fluid collection. Osseous structures: No suspicious marrow signal abnormalities. Procedure Note Jay García MD - 01/15/2022 EXAMINATION: MRI ABDOMEN WWO CONTRAST (GENERIC), MRI ADDITIONAL VIEW -BODY CLINICAL HISTORY: Liver disease, chronic, fibrosis; please quantitate ironload in liver in pt with elevated ferritin TECHNIQUE: MRI of the abdomen was performed without contrast on a 1.5 Tmagnet. Liver iron quantitation sequences were performed at a later date without contrast. COMPARISON: None FINDINGS: Liver: Normal size and contour. No focal lesions on the T2 weightedimages. Right lobe: OTILIA 1: 2.35 mg Fe/g OTILIA 2: 2.51 mg Fe/g Left lobe: OTILIA 3: 3.00 mg Fe/g OTILIA 4: 2.32 mg Fe/g Results: Average liver iron concentration is within normal limits. (Normal values: <3 mg Fe/g dry weight, or approximately <53 micromol/gdry weight) Bile ducts: Nondilated. Gallbladder: No stones. Normal caliber wall. Pancreas: Normal in signal intensity. Spleen: Normal in size. Decreased signal intensity on in phase images. Adrenal glands: Normal. Kidneys: T2 hyperintense, T1 hypointense nonenhancing cyst in the leftupper pole measuring 2.9 cm. Other small T2-hyperintense cysts throughout both kidneys. No suspicious lesions. No hydronephrosis. Bowel: No dilated small or large intestine in the upper abdomen. Lymph Nodes: No enlarged nodes. Peritoneum and mesentery: No ascites or focal fluid collection. Osseous structures: No suspicious marrow signal abnormalities. IMPRESSION 1. Normal liver iron concentration. 2. Suggestion of increased iron content within the spleen, notquantifiable by imaging. I have personally reviewed the image(s) and the resident's interpretationand agree with the findings, Jay García MD at 01/15/2022 5:09 PM Thank you for letting us participate in the care of this patient. If youare a health care provider and have any questions regarding this report,please contact the number below. For patients who have questions please contactthe health field care advocate that requested your imaging first. Electronically signed by: Jay García MD, [facility]([phone]), at 01/15/2022 5:09 PM Jay García MD IMG MRI ORDERABLES documented in this encounter Visit Diagnoses Diagnosis Elevated ferritin Other abnormal blood chemistry Elevated ferritin Other abnormal blood chemistry documented in this encounter Care Teams Model Builder Display Relationship Specialty Start Date End Date Maureen uLa APRN [address] [place] [address] PCP - General Internal Medicine 08/18/18 documented as of this encounter
--- OUTSIDE RECORDS SUMMARY | 2023-11-02 04:04 | XMS_ITS | Encounter Summary ---
Author Organization [facility] [place] [address] Care Team Providers Care Photographic Reproduction Technician Name Role Phone Maureen Lua APRN Primary Care Provider [phone] Encounter Details Date Type Department Care Team (Late st Contact Info) Description 04/07/2020 Refill [place] [address] Ney Hickman MD [facility] [place] [address] Social History Tobacco Use Types Packs/Day Years [...] on filedocumented in this encounter Care Teams Photographic Reproduction Technician Relationship Specialty Start Date End Date Maureen Lua APRN [address] [place] [address] PCP - General Internal Medicine 08/18/18 documented as of this encounter
--- OUTSIDE RECORDS SUMMARY | 2023-11-02 04:04 | XMS_ITS | Encounter Summary ---
[place] [address] Care Team Providers Care Ticket Sorter Name Role Phone Maureen Lua APRN Primary Care Provider [phone] Reason for Visit * Reason Comments Medication Management Patient Education Encounter Details Date Type Department Care Team (Late st Contact Info) Description 06/23/2020 Specialty [place] [phone] Kan Santacruz [facility] Social History Tobacco Use Types [...] this encounter Progress Notes * Kan Santacruz [facility] - 06/23/2020 2:00 PM EDT Clinical Management Plan: Refill Specialty Pharmacy Consultation; Kan Santacruz [facility] Comprehensive Medication Management (CMM) Erasto Akers Ari Mr. Erasto Chapman is a 59 y.o. (1960) male who was contacted in regard to a specialty medication refill reminder. Contact made with patient regarding ENBREL. A review of the medication therapywas performed. The medication was refilled as scheduled, and all medication related questions and concerns were addressed. The specialty pharmacy staff will follow up with the patient 5-7 days prior to next refill. Was a change made to the Care Plan: No Allergies and Drug intolerance: No Known Allergies Medication Reconciliation Discrepancies (compared to [facility] med list) No Specialty Pharmacy Refill Questionnaire Refill Questionnaire 06/23/2020 What is the name of the specialty medication you are refilling? enbrel Are you taking any new medications? No Any new medical condition? No Any new allergies? No Any new side effects that are bothersome? No What date will you need this fill by? [id number] Adherence: Any missed doses? No Patient understands no changes to current drug regimen were made.. Kan Santacruz RPH 06/23/20 2:01 PM documented in this encounter Plan of Treatment Not on file documented as of this encounter Visit Diagnoses Not on filedocumented in this encounter Care Teams Ticket Sorter Relationship Specialty Start Date End Date Maureen Lua APRN [address] [place] [address] PCP - General Internal Medicine 08/18/18 documented as of this encounter
--- OUTSIDE RECORDS SUMMARY | 2023-11-02 04:04 | XMS_ITS | Encounter Summary ---
[place] [address] Care Team Providers Care Stock Room Manager Name Role Phone Maureen Lua APRN Primary Care Provider [phone] Reason for Visit * Reason Comments Medication Management Patient Education Encounter Details Date Type Department Care Team (Late st Contact Info) Description 07/22/2020 Specialty [place] [phone] Kan Santacruz [facility] Social History Tobacco Use Types Packs/Day Years [...] this encounter Progress Notes * Kan Santacruz [facility] - 07/22/2020 1:31 PM EDT Clinical Management Plan: Refill Specialty Pharmacy Consultation; Kan Santacruz [facility] Comprehensive Medication Management (CMM) Erasto Akers Ari Mr. Erasto Chapman is a 59 y.o. (1960) male who was contacted in regard to a specialty medication refill reminder. Contact made with caregiver. Caregiver name: regarding Enbrel. A review of the medication therapy was performed. The medication was refilled as scheduled, and all medicationrelated questions and concerns were addressed. The specialty pharmacy staff will follow up with thepatient 5-7 days prior to next refill. Was a change made to the Care Plan: No Allergies and Drug intolerance: No Known Allergies Medication Reconciliation Discrepancies (compared to [facility] med list) No Specialty Pharmacy Refill Questionnaire Refill Questionnaire 07/22/2020 What is the name of the specialty medication you are refilling? enbrel Are you taking any new medications? No Any new medical condition? No Any new allergies? No Any new side effects that are bothersome? No What date will you need this fill by? 07/29/2020 Adherence: Any missed doses? No Patient understands no changes to current drug regimen were made.. Kan Santacruz RPH 07/22/20 1:32 PM documented in this encounter Plan of Treatment Not on file documented as of this encounter Visit Diagnoses Not on filedocumented in this encounter Care Teams Stock Room Manager Relationship Specialty Start Date End Date Maureen Lua APRN [address] [facility] [place] [address] PCP - General Internal Medicine 08/18/18 documented as of this encounter
--- OUTSIDE RECORDS SUMMARY | 2023-11-02 04:04 | XMS_ITS | Encounter Summary ---
Author Organization [facility] Address [facility] [place] [address] Care Team Providers Care Identification Technician Name Role Phone Maureen Lua APRN Primary Care Provider [phone] Encounter Details Date Type Department Care Team (Latest Contact Info) Description 09/04/2019 11:00 AM EDT TH Visit (TeleHealth) [place] [address] Ney Hickman MD [facility] [place] [address] Medication monitoring encounter; High risk medication use; Chronic bilateral low back pain without sciatica; Ankylosing spondylitis, unspecified site of spine; Neck pain Social History Tobacco Use Types Packs/Day Years Used Date Smoking Tobacco: Never Smokeless Tobacco: Never Alcohol Use Standard Drinks/Week Comments Not Currently 0 (1 standard drink = 0.6 oz pur e alcohol) Sex and Gender Information Value Date Recorded Sex Assigned at Not on file Gender Identity Not on file Sexual Orientation Not on file documented as of this encounter Progress Notes * Ney Hickman MD - 09/04/2019 11:00 AM EDT Rheumatology Follow -U[p Note Rheumatology Hx ?? ankylosing spondylitis ?? On enbrel ?? Previously on Cosentyx and Humira ?? Vicadin ?? Hx of ankylosing spondylitis () ?? previous patient of Brionna Neves currently on Cosentyx 300 mg monthly/ Symptoms started when hewas a child. He was diagnosed with gout at age 12 and eventually diagnosed with juvenile arthritis.X-rays of his spine 2018 show complete SI joint fusion on the right and partial fusion on the left . History of obstructive sleep apnea was supposed to get a third sleep study with no evidence of yet(accodring to dr neves note). In the begginning he was MTX which was stopped he think do to liverato but can not recall. The he was on Enbrel for 11 to 12 years with good results but according to the patient is seeing Dr. Neves but is not getting good results and switching to Humira with poor effect was later transitioned off of Humira to Cosentyx approximately last 6 to 8 months which recently developed within the last 3 months increased to Cosentyx 300 mg without good benefit. He does not recall being on sulfasalazine. He is on indomethacin for pain takes a daily also is on Red House.. He has stomach issues with NSAIDs takes his Dexilant after meals does not use NSAIDs with food. I have reviewed the provided records, pertinent records available at the time of the [facility] appointment with in the medical record and any forms completed by the patient. These have been scanned into the medical record for future review. Interval HX Erasto Chapman is a 58 y.o. male with as noted above he still is today mid back and neck pain.. No swelling redness or warmth. Reduced range of motion in the neck. Unchanged - Pain in neck and mid back. Trapezius pain. He has prolongs stiffness s He avoids Tylenol because of liver toxicity though he has normal LFTs and. He takes Vicodin which is prescribed by his PCP. Fatigue has sleep apnea no neeraj fountain taking care of mom who has trach using a sleeping pill per PCP Patient denies Achilles tendonitis, plantar fasciitis, diffuse tendonitis, chest wall pain and eye pain. Hx of low WBC count following ups with PCP this week. He has not done PT No recent infections. ROS: General (-)fevers, (-)chills, HEENT (-)head trauma, (-)vision change, (-)tinnitus, (-)epistaxis, (-)sore throat, (-)bleeding gums, (-)oral ulcers, (-)dry eyes, (-)dry mouth, (- )dysphagia, (-)GERD, (-)photo sensitivity, (-)Hair loss, (-)vertigo CVS (-)chest pain, (-)palpitations, (-)pedal edema, (-)PND, (-)orthopnea. Pulm (-)shortness of breath, (-)QUEVEDO, (-)wheezes, (-)cough, (-)pleuritic pain GI (-)N/V, (-)abdominal pain, (-)emesis, (-)hematemesis, (-)hematochezia, (- )change in appetite (-)hematuria, (-)dysuria, (-)frequency, (-)nocturia, (-)genital ulcers MS (-)muscle weakness, (-)paralysis, Endo (-)thyroid disorders, (-)diabetes, (-)temperature intolerance. Neuro (-)focal weakness, (-)paresthesias, (-)gait instability. Skin (-)Raynaud's, (-)ulcers Psych (-) mood disorder. No past medical history on file. Patient Active Problem List Diagnosis Date Noted ??? Ankylosing spondylitis 09/01/2018 ??? Thoracic back pain 09/01/2018 ??? Neck pain 09/01/2018 ??? Microscopic hematuria 07/26/2014 ??? Nephrolithiasis 07/26/2014 No past surgical history on file. No family history on file. Social History Socioeconomic History ??? Marital status: Spouse name: Not on file ??? Number of children: Not on file ??? Years of education: Not on file ??? Highest education level: Not on file Occupational History ??? Not on file Social Needs ??? Financial resource strain: Not on file ??? Food insecurity Worry: Not on file Inability: Not on file ??? Transportation needs Medical: Not on file Non-medical: Not on file Tobacco Use ??? Smoking status: Never Smoker ??? Smokeless tobacco: Never Used Substance and Sexual Activity ??? Alcohol use: Not on file ??? Drug use: Not on file ??? Sexual activity: Not on file Lifestyle ??? Physical activity Days per week: Not on file Minutes per session: Not on file ??? Stress: Not on file Relationships ??? Social connections Talks on phone: Not on file Gets together: Not on file Attends lutheran service: Not on file Active member of club or organization: Not on file Attends meetings of clubs or organizations: Not on file Relationship status: Not on file ??? Intimate partner violence Fear of current or ex partner: Not on file Emotionally abused: Not on file Physically abused: Not on file Forced sexual activity: Not on file Other Topics Concern ??? Not on file Social History Narrative ??? Not on file Current Outpatient Medications Medication Sig Dispense Refill ??? ENBREL SURECLICK Pen Injector Inject 50 mg subcutaneously once a week. 12 mL 3 ??? cholecalciferol, Vitamin D3, (CHOLECALCIFEROL, VITAMIN D3,) 2,000 unit Capsule Take by mouth. ??? aspirin 81 mg Tablet, Chewable Take 81 mg by mouth Daily. ??? cyanocobalamin, vitamin B-12, 1,000 mcg Tablet Take 1,000 mcg by mouth Daily. ??? HYDROcodone-acetaminophen (NORCO) 5-325 mg Tablet Take 1 tablet by mouth Every 4 hours as needed. ??? ondansetron (ZOFRAN-ODT) 4 mg Tablet, Rapid Dissolve as needed. ??? zolpidem (AMBIEN) 5 mg Tablet TAKE ONE TABLET BY MOUTH AT BEDTIME NEEDED FOR INSOMNIA 0 ??? lisinopril (PRINIVIL;ZESTRIL) 5 mg Tablet Take 5 mg by mouth daily. ??? dexlansoprazole (DEXILANT) 60 mg Cap, Delayed Rel., Multiphasic Take 60 mg by mouth daily. ??? simvastatin (ZOCOR) 40 mg Tablet Take 40 mg by mouth nightly. No current facility-administered medications for this visit. Current Outpatient Medications on File Prior to Visit Medication Sig Dispense Refill ??? ENBREL SURECLICK Pen Injector Inject 50 mg subcutaneously once a week. 12 mL 3 ??? cholecalciferol, Vitamin D3, (CHOLECALCIFEROL, VITAMIN D3,) 2,000 unit Capsule Take by mouth. ??? aspirin 81 mg Tablet, Chewable Take 81 mg by mouth Daily. ??? cyanocobalamin, vitamin B-12, 1,000 mcg Tablet Take 1,000 mcg by mouth Daily. ??? HYDROcodone-acetaminophen (NORCO) 5-325 mg Tablet Take 1 tablet by mouth Every 4 hours as needed. ??? ondansetron (ZOFRAN-ODT) 4 mg Tablet, Rapid Dissolve as needed. ??? zolpidem (AMBIEN) 5 mg Tablet TAKE ONE TABLET BY MOUTH AT BEDTIME NEEDED FOR INSOMNIA 0 ??? lisinopril (PRINIVIL;ZESTRIL) 5 mg Tablet Take 5 mg by mouth daily. ??? dexlansoprazole (DEXILANT) 60 mg Cap, Delayed Rel., Multiphasic Take 60 mg by mouth daily. ??? simvastatin (ZOCOR) 40 mg Tablet Take 40 mg by mouth nightly. No current facility-administered medications on file prior to visit. No Known Allergies Physical Exam: Does not have smart phone Assessment, Plan or Recommendation: Erasto Chapman is a 58 y.o. male who presents today with ankylosing spondylitis with hx of ARGELIA andGOUT? Likely patient had +HLAB27 Hep, HIV , wnl Ankylosing spondylitis partial fusion patient was seen in the pain clinic to discuss PT and possible injections patient continued to PT at home. - possible failure to enbrel - but will evaluate afterpain clinic eval. Neck pain and imaging consistent DDD - descriebs MSK pain to trpeaius given info about PT Lower back pain 2/2 - poor response with NSAIDs - hx og ulcer. - to see pain Mild leukopneia - reports episodes before scheduled to see PCP Dz and medication monitoring labs q 3 months Avoid extra tylenol since on Vicodin per PCP Turmeric 1000mg bid Rec Voltaren gel for peripheral joint pain High concern over NSAID risk with little benefit IF cont failure will consider Taltz Vs TNF No orders of the defined types were placed in this encounter. documented in this encounter Plan of Treatment Not on file documented as of this encounter Visit Diagnoses Diagnosis Medication monitoring encounter Encounter for therapeutic drug monitoring High risk medication use Encounter for long-term (current) use of other medications Chronic bilateral low back pain without sciatica Ankylosing spondylitis, unspecified site of spine Neck pain Cervicalgia documented in this encounter Care Teams Identification Technician Relationship Specialty Start Date End Date Maureen Lua APRN [address] [place] [place] [address] PCP - General Internal Medicine 08/18/18 documented as of this encounter
--- OUTSIDE RECORDS SUMMARY | 2023-11-02 04:04 | XMS_ITS | Encounter Summary ---
[place] [address] Care Team Providers Care Euclid Operator Name Role Phone Maureen Lua APRN Primary Care Provider [phone] Reason for Referral * Diagnostic Test (Routine) - Closed Specialty Diagnoses / Procedures Referred By Contac t Referred To Contact Radiology Diagnoses Elevated ferritin Procedures MRI Abdomen wwo Contrast (Generic) Cristobal Chavez MD [facility] [address] HEM[place] [address] [place] [address] Referral ID Status Reason Start Date Expiration Date V isits Requested Visits Authorized [id number] Closed Specialty Service Requested 12/17/2021 06/18/2023 1 1 Reason for Visit * Diagnostic Test (Routine) - Closed Specialty Diagnoses / Procedures Referred By Contac t Referred To Contact Radiology Diagnoses Elevated ferritin Procedures MRI Abdomen wwo Contrast (Generic) Cristobal Chavez MD [facility] DR HEMATOLOGY [place] [address] [place] [address] Referral ID Status Reason Start Date Expiration Date V isits Requested Visits Authorized [id number] Closed Specialty Service Requested 12/17/2021 06/18/2023 1 1 Encounter Details Date Type Department Care Team (Latest Contact Info) Description 01/01/2022 5:03 PM EDT - 01/01/2022 11:59 PM EDT Hospital Encounter MRI at [facility] [place] [phone] Cristobal Chavez MD [facility] [place] [address] Elevated ferritin Discharge Disposition: Home Social History Tobacco Use [...] Sig Dispensed Refills Start Date End Date hydroCHLOROthiazide (Hydrodiuril) 12.5 mg Tablet Take 12.5 mg by mouth daily. folic acid (Folvite) 1 mg Tablet Take 1 mg by mouth daily. cyanocobalamin, Vitamin B-12, 1,000 mcg/mL Solution Inject 1,000 mcg as directed every 30 days. Receives in addition to oral replacement multivitamin (THERAGRAN) Tablet Take 1 tablet by mouth daily. EnbreL SureClick Pen Injector Inject 50 mg subcutaneously once a week. 12 mL 3 04/09/2020 cholecalciferol, Vitamin D3, 50 mcg (2,000 unit) [...] Tablet Take 40 mg by mouth nightly. zolpidem (AMBIEN) 5 mg Tablet TAKE ONE TABLET BY MOUTH AT BEDTIME NEEDED FOR INSOMNIA 0 08/06/2018 02/04/2022 documented as of this encounter Plan of Treatment Not on file documented as of this encounter Procedures Procedure Name Priority Date/Time Associated Diagnosis Comments MRI ABDOMEN WWO CONTRAST Routine 01/01/2022 6:19 PM EDT Elevated ferritin documented in this encounter Results * MRI Abdomen wwo Contrast (Generic) (01/01/2022 6:19 PM EDT) Anatomical Region Laterality Modality Abdomen Magnetic Resonan ce Impressions 01/15/2022 5:09 PM [...] who have questions please contact the health respiratory care instructor that requested your imaging first. ? Narrative 01/15/2022 5:09 PM EST EXAMINATION: MRI [...] patients who have questions please contactthe health respiratory care instructor that requested your imaging first. Cristobal Chavez MD [facility] MRI ORDERABLES documented in this encounter Visit Diagnoses Diagnosis Elevated ferritin Other abnormal blood chemistry documented in this encounter Administered Medications Inactive Administered Medications - up to 3 most recent administrations Medication Order MAR Action Action Date Dose Rate Site gadoterate meglumine (Dotarem) (0.5 mMol/mL) injection solution 0-100 mL 0-100 mL, Intravenous, ONCE PRN, 1 dose, Starting on Tue01/01/22 at 1915, Until Tue01/01/22 at 1916, Per Protocol, Radiology Contrast, Routine Given 01/01/2022 7:16 PM EDT 13 mLs documented in this encounter Care Teams Euclid Operator Relationship Specialty Start Date End Date Maureen Lua, DRIVER HELPER [address] [place] [address] PCP - General Internal Medicine 08/18/18 documented as of this encounter
--- OUTSIDE RECORDS SUMMARY | 2023-11-02 04:04 | XMS_ITS | Encounter Summary ---
Author Organization [place] [address] Care Team Providers Care Water Inspector Name Role Phone Maureen Lua APRN Primary Care Provider [phone] Reason for Visit * Reason Onset Date Comments Labs Only 12/31/2021 Lab data communications engineer Encounter Details Date Type Department Care Team (Late st Contact Info) Description 12/31/2021 Telephone Hematology Oncology at [address] [phone] Erna Chino, RN Labs Only (Lab data communications engineer) Social History Tobacco Use Types Packs/Day Years [...] Procedure Name Priority Date/Time Associated Diagnosis Comments CBC (WITH DIFF) Routine 09/30/2021 FERRITIN Routine 09/30/2021 COMPREHENSIVE METABOLIC PANEL Routine 07/09/2021 CBC (WITH DIFF) Routine 09/29/2020 COMPREHENSIVE METABOLIC PANEL Routine 09/29/2020 CBC (WITH DIFF) Routine 04/14/2020 documented in this encounter Results * (ABNORMAL) Ferritin (09/30/2021) Pathologist [facility] Ferritin 541(H) Blood 09/30/2021 Historical Provider CHEMISTRY ORDERAB LES * CBC (with Diff) (09/30/2021) Pathologist [facility] White Blood Cell 5.56 Red Blood Cell 5.15 Hemoglobin 16.2 Hematocrit 46.4 Platelet 169 Blood 09/30/2021 Historical Provider HEMATOLOGY ORDERA BLES * (ABNORMAL) Comprehensive metabolic panel (non-fasting) (07/09/2021) Pathologist [facility] Blood Urea Nitrogen 13 Creatinine 1.1 Sodium 144 Potassium 4.0 Calcium 8.4 Protein, Total 7.0 Albumin 3.6 Bilirubin, Total 0.5 Alkaline Phosphatase 91 Aspartate Aminotransferase 22 Alanine Aminotransferase 37 TIBC 221 Ferritin 562(H) Vitamin B12 989(H) Blood 07/09/2021 Historical Provider CHEMISTRY ORDERAB LES * (ABNORMAL) Comprehensive metabolic panel (non-fasting) (09/29/2020) Pathologist [facility] Blood Urea Nitrogen 17 Creatinine 1.2 Sodium 145 Potassium 4.4 Calcium 9.2 Protein, Total 7.2 Albumin 4.1 Bilirubin, Total 0.5 Alkaline Phosphatase 117(H) Aspartate Aminotransferase 36 Alanine Aminotransferase 59 Blood 09/29/2020 Historical Provider CHEMISTRY ORDERAB LES * CBC (with Diff) (09/29/2020) Pathologist [facility] White Blood Cell 4.76 Red Blood Cell 4.55 Hemoglobin 14.3 Hematocrit 42.9 Platelet 172 ANC 2.47 Blood 09/29/2020 Historical Provider HEMATOLOGY ORDERA BLES * CBC (with Diff) (04/14/2020) Pathologist [facility] White Blood Cell 5.29 Red Blood Cell 4.59 Hemoglobin 14.3 Hematocrit 41.6 Platelet 180 ANC 2.87 Blood 04/14/2020 Historical Provider HEMATOLOGY ORDERA BLES documented in this encounter Visit Diagnoses Not on filedocumented in this encounter Care Teams Water Inspector Relationship Specialty Start Date End Date Maureen Lua APRN [address] [facility] [place] [address] PCP - General Internal Medicine 08/18/18 documented as of this encounter
--- OUTSIDE RECORDS SUMMARY | 2023-11-02 04:04 | XMS_ITS | Encounter Summary ---
Author Organization [facility] Address [facility] [place] [address] Care Team Providers Care Equipment Monitor Phototypesetting Name Role Phone Maureen Lua APRN Primary Care Provider [phone] Encounter Details Date Type Department Care Team (Latest Contact Info) Description 01/15/2022 Travel Social History Tobacco Use Types Packs/Day [...] place to sleep or slept in a usp (including now)? No 11/26/2021 Sex and Gender Information Value Date Recorded Sex Assigned at Not on file Gender Identity Not on file Sexual Orientation Not on file documented as of this encounter Plan of Treatment Not on file documented as of this encounter Visit Diagnoses Not on filedocumented in this encounter Care Teams Equipment Monitor Phototypesetting Relationship Specialty Start Date End Date Maureen Lua APRN [address] [place] [address] PCP - General Internal Medicine 08/18/18 documented as of this encounter
--- OUTSIDE RECORDS SUMMARY | 2023-11-02 04:04 | XMS_ITS | Encounter Summary ---
[place] [address] Care Team Providers Care Supervisor Underwriting Clerks Name Role Phone Maureen Lua APRN Primary Care Provider [phone] Reason for Visit * Reason Comments Prior Authorization Enbrel Sureclick 50 mg/ml SOAJ Encounter Details Date Type Department Care Team (Late st Contact Info) Description 01/22/2020 Specialty [place] [address] Melvin Jean, [facility] Social History Tobacco Use Types Packs/Day Years Used Date Smoking Tobacco: Never Smokeless Tobacco: Never Alcohol Use Standard Drinks/Week Comments Not Currently 0 (1 standard drink = 0.6 oz pur e alcohol) Sex and Gender Information Value Date Recorded Sex Assigned at Not on file Gender Identity Not on file Sexual Orientation Not on file documented as of this encounter Progress Notes * Melvin Jean CPHT - 01/22/2020 2:09 PM EST [facility], Medication Prior Authorization Patient: Erasto Chapman Patient : 1960 Patient Address: [address] [place] [id number] (home) Medication Name: ENBREL SURECLICK 50 MG/ML (1 ML) SUBCUTANEOUS PEN INJECTOR Medication ID: [id number] Patient Location: [facility] Patient Location Comment: Subscriber Insurance: [employer] Subscriber Insurance Comment: Fax: Physician: LESLIE SCHWARTZ Physician Comment: Sent Via: [facility] Bryant: [id number] Ref/Case/PA#: Medication Strength Frequency Requested: Enbrel Sureclick 50 mg/ml SOAJ Inject 50 mg (1 Pen) Subcutaneously Every 7 Days Qty/Day Supply: 07/02 New Start: Renewal Diagnosis & ICD-10 Code: Ankylosing Spondylitis M45.9 Patient Notified: No Submission Notes: Reauthorization Melvin Jean CPHT 01/22/20 2:11 PM * Melvin Jean CPHT - 01/22/2020 2:09 PM EST [facility], Prior Authorization Approval Medication Name: ENBREL SURECLICK 50 MG/ML (1 ML) SUBCUTANEOUS PEN INJECTOR Medication ID: [id number] Fillable at [facility]: Yes Approval Dates: 10/24/2019 to 01/21/2023 Insurance requirements/notes: Patient May Fill With Pharmacy Other Notes: None Case/Reference #: [id number] Approval notification Received via: Fax Copay: $3.90 Copay assistance: None Copay Notes: N/A Insurance mandated Pharmacy: [facility] Pharmacy staff will be reaching out to the patient to inform them of their medication's [facility]. If applicable, a pharmacist will speak with the patient to offer our specialty pharmacy services and to arrange delivery of their medication. Melvin Jean CPHT 01/22/20 2:47 PM documented in this encounter Plan of Treatment Not on file documented as of this encounter Visit Diagnoses Not on filedocumented in this encounter Care Teams Supervisor Underwriting Clerks Relationship Specialty Start Date End Date Maureen Lua, IT MANAGER [address] [place] [address] PCP - General Internal Medicine 08/18/18 documented as of this encounter
--- OUTSIDE RECORDS SUMMARY | 2023-11-02 04:04 | XMS_ITS | Encounter Summary ---
[place] [address] Care Team Providers Care Metal Stamping Machine Operator Name Role Phone Maureen Lua APRN Primary Care Provider [phone] Encounter Details Date Type Department Care Team (Late st Contact Info) Description 01/14/2020 Specialty [place] [address] Maria C Magallanes, [facility] Social History Tobacco Use Types Packs/Day Years [...] on filedocumented in this encounter Care Teams Metal Stamping Machine Operator Relationship Specialty Start Date End Date Maureen Lua APRN [address] [place] [address] PCP - General Internal Medicine 08/18/18 documented as of this encounter
--- OUTSIDE RECORDS SUMMARY | 2023-11-02 04:04 | XMS_ITS | Encounter Summary ---
Author Organization [facility] [place] [address] Care Team Providers Care Tankroom Worker Name Role Phone Maureen Lua APRN Primary Care Provider Reason for Visit * Reason Comments Medication Refill Encounter Details Date Type Department Care Team (Late st Contact Info) Description 03/04/2019 [place] [address] Ney Hickman MD [facility] [place] [address] [place] [address] High risk medication use; Inflammatory arthropathy; Morning joint stiffness Social History Tobacco Use Types Packs/Day Years Used Date Smoking Tobacco: Never Smokeless Tobacco: Never Sex and Gender Information Value Date Recorded Sex Assigned at Not on file Gender Identity Not on file Sexual Orientation Not on file documented as of this encounter Plan of Treatment Not on file documented as of this encounter Visit Diagnoses Diagnosis High risk medication use Encounter for long-term (current) use of other medications Inflammatory arthropathy Arthropathy, unspecified, site unspecified Morning joint stiffness Stiffness of joint, not elsewhere classified, unspecified site documented in this encounter Care Teams Tankroom Worker Relationship Specialty Start Date End Date Maureen Lua APRN [address] [place], [place] [id number] PCP - General Internal Medicine 08/18/18 documented as of this encounter
--- OUTSIDE RECORDS SUMMARY | 2023-11-02 04:04 | XMS_ITS | Encounter Summary ---
[place] [address] Care Team Providers Care Meter/Relay Craftsman Name Role Phone Maureen Lua APRN Primary Care Provider [phone] Encounter Details Date Type Department Care Team (Late st Contact Info) Description 11/21/2020 Specialty Pharmacy [place] [phone] Kan Santacruz [facility] Social History Tobacco Use Types [...] this encounter Progress Notes * Kan Santacruz [facility] - 11/21/2020 9:01 AM EDT Clinical Management Plan: Refill Specialty Pharmacy Consultation; Kan Santacruz [facility] Comprehensive Medication Management (CMM) Erasto Chapman Mr. Erasto Chapman is a 60 y.o. (1960) male who was contacted in regard to a specialty medication refill reminder. Contact made with patient regarding enbrel. A review of the medication therapywas performed. The medication was refilled as scheduled, and all medication related questions and concerns were addressed. The specialty pharmacy staff will follow up with the patient 5-7 days prior to next refill. Was a change made to the Care Plan: No Allergies and Drug intolerance: No Known Allergies Medication Reconciliation Discrepancies (compared to [facility] med list) No Specialty Pharmacy Refill Questionnaire Refill Questionnaire 11/21/2020 What is the name of the specialty medication you are refilling? enbrel Are you taking any new medications? No Please explain - Any new medical condition? No Any new allergies? No Any new side effects that are bothersome? No What date will you need this fill by? 11/26/2020 Adherence: Any missed doses? No Patient understands no changes to current drug regimen were made. Kan Santacruz RPH 11/21/20 9:02 AM documented in this encounter Plan of Treatment Not on file documented as of this encounter Visit Diagnoses Not on filedocumented in this encounter Care Teams Meter/Relay Craftsman Relationship Specialty Start Date End Date Maureen Lua APRN [address] [facility] [place] [address] PCP - General Internal Medicine 08/18/18 documented as of this encounter
--- OUTSIDE RECORDS SUMMARY | 2023-11-02 04:04 | XMS_ITS | Encounter Summary ---
Author Organization [facility] [place] [address] Care Team Providers Care Program Mgr Name Role Phone Maureen Lua APRN Primary Care Provider [phone] Encounter Details Date Type Department Care Team (Late st Contact Info) Description 04/25/2019 [place] [address] Ney Hickman MD [facility] [place] [address] Social History Tobacco Use Types Packs/Day Years [...] on filedocumented in this encounter Care Teams Program Mgr Relationship Specialty Start Date End Date Maureen Lua APRN [address] [place] [address] PCP - General Internal Medicine 08/18/18 documented as of this encounter
--- OUTSIDE RECORDS SUMMARY | 2023-11-02 04:04 | XMS_ITS | Encounter Summary ---
[place] [address] Care Team Providers Care Extractor Machine Operator Name Role Phone Maureen Lua APRN Primary Care Provider [phone] Reason for Visit * Reason Comments Medication Management Encounter Details Date Type Department Care Team (Late st Contact Info) Description 04/11/2020 Specialty [place] [address] Deepali Grey, [facility] Social History Tobacco Use Types Packs/Day [...] as of this encounter Progress Notes * Deepali Grey [facility] - 04/11/2020 12:33 PM EST Specialty Pharmacy Consultation; Deepali Grey [facility] Comprehensive Medication Management (CMM): Specialty Consult, Opt Out Erasto Chapman Diagnosis: Therapy Start Date: 01/2019 Contact in person or via telephone: telephone Mr. Erasto Chapman is a 59 y.o. (1960) male who was contacted in regard to specialty medication. Spoke with patient regarding Enbrel. A review of the medication therapy was performed. The medication was filled as scheduled, and all medication related questions and concerns were addressed. [facility] follow up with the patient 7 days prior to next refill. Is the patient willing to proceed with the Clinical Assessment? No Summary and Recommendations: I spoke with both Erasto and Juanis. He has been on the medication for some time and does not haveany questions. They were originally getting it through the systems spec, but his insurance is now paying for it. He has 2 pens left and injects on Sundays. They are aware there is a pharmacist television mechanic 27/09 if anything comes up. Economic Assessment: Patient is agreeable to medication copay: Yes Copay Amount: $4 Day Supply: 28 Date Needed: 04/27/20 Therapy Assessment: Appropriate Therapy: Yes Current Medication Dosing/Route/Frequency: Enbrel 50mg/mL SOAJ Inject the contents of 1 pen subcutaneously every 7 days. Additional equipment/supplies required: no Care Plan Reviewed and Approved by Pharmacist : Yes Problem List: Patient Active Problem List Diagnosis Code ??? Microscopic hematuria R31.29 ??? Nephrolithiasis N20.0 ??? Ankylosing spondylitis M45.9 ??? Thoracic back pain M54.6 ??? Neck pain M54.2 Medications Reviewed: Yes Medications reconciled: No Allergies Reviewed:Yes Allergies reconciled: No Pharmacist follow-up needed: Yes Informed patient of specialty pharmacy services: Yes -Patient will be provided with welcome packet: Yes Date to be provided: 04/16/20 Delivery Method: mail -Patient returned signed Rights & Responsibilities: Yes Date to be provided: 04/16/20 Delivery Method: Mail -Patient is aware a licensed pharmacist is available 24 hours a day, 7 days a week to discuss medication-related questions or concerns: Yes -Patient verbalizes understanding of the common side effect profile of their medication. The patient is able to call 911 or seek urgent care if signs/symptoms of allergy or harmful adverse reactions occur: Yes Patient understands no changes to current drug regimen were made at the appointment and that the pharmacist is providing recommendations (summary located at top of note) for provider review and follow up. Deepali Grey RPH 04/11/20 2:16 PM documented in this encounter Plan of Treatment Not on file documented as of this encounter Visit Diagnoses Not on filedocumented in this encounter Care Teams Extractor Machine Operator Relationship Specialty Start Date End Date Maureen Lua APRN [address] [place] [address] PCP - General Internal Medicine 08/18/18 documented as of this encounter
--- OUTSIDE RECORDS SUMMARY | 2023-11-02 04:04 | XMS_ITS | Encounter Summary ---
[place] [address] Care Team Providers Care Digital Ad Trafficker Name Role Phone Maureen Lua APRN Primary Care Provider [phone] Reason for Referral * Diagnostic Test (Routine) - Closed Specialty Diagnoses / Procedures Referred By Contac t Referred To Contact Radiology Diagnoses Elevated ferritin Procedures MRI Additional Views - Body Jya García MD [facility] [place] [address] [place] [address] Referral ID Status Reason Start Date Expiration Date V isits Requested Visits Authorized [id number] Closed Specialty Service Requested 01/04/2022 07/05/2023 1 1 Reason for Visit * Diagnostic Test (Routine) - Closed Specialty Diagnoses / Procedures Referred By Contac t Referred To Contact Radiology Diagnoses Elevated ferritin Procedures MRI Additional Views - Body Jay García MD [facility] [place] [address] [place] [address] Referral ID Status Reason Start Date Expiration Date V isits Requested Visits Authorized [id number] Closed Specialty Service Requested 01/04/2022 07/05/2023 1 1 Encounter Details Date Type Department Care Team (Latest Contact Info) Description 01/15/2022 12:26 PM EST - 01/15/2022 11:59 PM EST Hospital Encounter MRI at [facility] [place] [id number] Jay García MD [facility] [place] [address] Elevated ferritin Discharge Disposition: Home Social History [...] place to sleep or slept in a penitentiary (including now)? No 11/26/2021 Sex and Gender [...] Name Priority Date/Time Associated Diagnosis Comments MRI ADDITIONAL VIEW - BODY Routine 01/15/2022 1:34 PM EST Elevated ferritin documented in this encounter Results * MRI Additional Views [...] who have questions please contact the health care management specialist that requested your imaging first. ? Electronically signed by: Jay García MD, [facility] ([phone]), at 01/15/2022 5:09 PM Narrative 01/15/2022 5:09 [...] patients who have questions please contactthe health care management specialist that requested your imaging first. Electronically signed by: Jay García MD, [facility]([phone]), at 01/15/2022 5:09 PM Jay García MD IMG MRI ORDERABLES documented in this encounter Visit Diagnoses Diagnosis Elevated ferritin Other abnormal blood chemistry documented in this encounter Care Teams Digital Ad Trafficker Relationship Specialty Start Date End Date Maureen Lua APRN [address] [place] [address] PCP - General Internal Medicine 08/18/18 documented as of this encounter
--- OUTSIDE RECORDS SUMMARY | 2023-11-02 04:04 | XMS_ITS | Encounter Summary ---
[place] [address] Care Team Providers Care Clock And Watch Hands Mounter Name Role Phone Maureen Lua APRN Primary Care Provider [phone] Reason for Visit * Reason Comments Specialty Pharmacy Review eternacept (En breL SureClick) Encounter Details Date Type Department Care Team (Late st Contact Info) Description 04/11/2020 Specialty [place] [address] Keegan Davis Social History Tobacco Use Types Packs/Day Years Used Date Smoking Tobacco: Never Smokeless Tobacco: Never Alcohol Use Standard Drinks/Week Comments Not Currently 0 (1 standard drink = 0.6 oz pur e alcohol) Sex and Gender Information Value Date Recorded Sex Assigned at Not on file Gender Identity Not on file Sexual Orientation Not on file documented as of this encounter Progress Notes * Keegan Davis - 04/11/2020 5:13 PM EST The [facility] has completed a benefits investigation for Erasto Chapman to review their eligibility to fill at [facility]. Per patient's medication list they are prescribed eternacept (EnbreL SureClick) and the medication is able to be filled at the [facility]. documented in this encounter Plan of Treatment Not on file documented as of this encounter Visit Diagnoses Not on filedocumented in this encounter Care Teams Clock And Watch Hands Mounter Relationship Specialty Start Date End Date Maureen Lua APRN [address] [place] [address] PCP - General Internal Medicine 08/18/18 documented as of this encounter
--- OUTSIDE RECORDS SUMMARY | 2023-11-02 04:04 | XMS_ITS | Encounter Summary ---
[place] [address] Care Team Providers Care Sausage Grinder Name Role Phone Maureen Lua APRN Primary Care Provider [phone] Reason for Visit * Reason Comments Medication Management Medication Refill Encounter Details Date Type Department Care Team (Late st Contact Info) Description 04/17/2019 Specialty Pharmacy [place] [phone] Brooklyn Montgomery, [facility] Social History Tobacco Use Types Packs/Day Years Used Date Smoking Tobacco: Never Smokeless Tobacco: Never Sex and Gender Information Value Date Recorded Sex Assigned at Not on file Gender Identity Not on file Sexual Orientation Not on file documented as of this encounter Progress Notes * Brooklyn Montgomery RPH - 04/17/2019 8:33 AM EST Clinical Management Plan: Transfer of Care/Discharge Specialty Services Specialty Pharmacy Consultation; Brooklyn Montgomery [facility] Comprehensive Medication Management (CMM) Erasto Chapman [address] [facility] [address] Telephone Information: Work Phone Not on file. Mobile Not on file. Is the patient transferring services to a different Specialty Pharmacy or discontinuing the medication? Transferring services to a different specialty pharmacy ([facility]) Medication: Enbrel Reason for discontinuation or transfer: patient preference Approximate date of discontinuation or transfer: 04/17/2019 Patient's response to therapy: stable Summary of services provided by [facility]: benefits investigation, initial consult, 1 month follow up, 6 month follow up, refill reminders, mail order, copay assistance Summary of on-going needs: n/a Referral for additional services (if applicable): n/a Is patient aware of referral? n/a Instructions provided to patient about discharge/transfer: no Provider aware of discontinuation or transfer: yes Patient understands no changes to current drug regimen were made at the appointment and that [facility] (summary located at top of note) for provider review and follow up. Brooklyn Montgomery RPH 04/17/19 8:33 AM * Brooklyn Montgomery RPH - 04/17/2019 8:33 AM EST Clinical Management Plan: Transfer of Care Specialty Pharmacy Consultation; Brooklyn Montgomery RPH Comprehensive Medication Management (CMM) Erasto Oswald Ari [facility] Elevated [place] Assistance Update The [facility] has looked into assistance for the following patient, but we have not been able to find any copay cards or foundations with available funding for them. The patient has beenprovided information to apply for team supervisor assistance program to receive free medication. The [facility] will follow-up with the patient in 7 days to see if they need any additional guidance. Patient: Erasto Chapman : 1960 Medication: Enbrel Sureclick 50mg/ml Dosing: inject 50 mg subcutaneously every 7 days Insurance: [employer] Medicare Part D?: yes [place] has been [place], current copay is: $1376.18 Brooklyn Montgomery RPH 04/24/19 8:49 AM * Maria C Magallanes RPH - 04/17/2019 8:33 AM EST Faxed complete Enbrel patient assistance application to [employer] * Maria C Magallanes RPH - 04/17/2019 8:33 AM EST Received fax that patient is eligible to receive Enbrel from [employer] free of charge from 04/26/2019 to03/06/2020. documented in this encounter Plan of Treatment Not on file documented as of this encounter Visit Diagnoses Not on filedocumented in this encounter Care Teams Sausage Grinder Relationship Specialty Start Date End Date Maureen Lua APRN [address] [place] [address] PCP - General Internal Medicine 08/18/18 documented as of this encounter
--- OUTSIDE RECORDS SUMMARY | 2023-11-02 04:04 | XMS_ITS | Encounter Summary ---
[place] [address] Care Team Providers Care In Home Tutor Name Role Phone Maureen Lua APRN Primary Care Provider [phone] Encounter Details Date Type Department Care Team (Late st Contact Info) Description 09/04/2019 Specialty [place] [address] Alessandro Mccormick Social History Tobacco Use Types [...] on filedocumented in this encounter Care Teams In Home Tutor Relationship Specialty Start Date End Date Maureen Lua APRN [address] [place], [place] [address] PCP - General Internal Medicine 08/18/18 documented as of this encounter
--- OUTSIDE RECORDS SUMMARY | 2023-11-02 04:04 | XMS_ITS | Encounter Summary ---
Author Organization [facility] Address [facility] Cait [place] [address] Care Team Providers Care Telephone Answerer Name Role Phone Maureen Lua APRN Primary Care Provider [phone] Encounter Details Date Type Department Care Team (Late st Contact Info) Description 12/10/2021 Telephone Hematology/Oncology at [address] [address] Sheyla Self Social History Tobacco Use Types Packs/Day Years [...] place to sleep or slept in a care home (including now)? No 11/26/2021 Sex and Gender Information Value Date Recorded Sex Assigned at Not on file Gender Identity Not on file Sexual Orientation Not on file documented as of this encounter Miscellaneous Notes * Telephone Encounter - Sheyla Dacosta - 12/10/2021 2:13 PM EDT I left Lazaro voicemail requesting he return a call to clinic to discuss next steps from his last visit with Dr. Chavez. Erasto saw Dr. Chavez on 12/03 and was instructed to get scheduled for a liver MRI then return to clinic to review. When I called Erasto's home to fill out the MRI safety screening, him and his said he does not want to MRI and are wondering what would be the next step. Per Dr. Chavez, if the patient doesn't complete the MRI it is up to him if he would like to continue care, as the MRI wasthe instructed next step. When Erasto returns my call, I will relay that message and allow him to make the decision whether he wants to return to clinic. documented in this encounter Plan of Treatment Not on file documented as of this encounter Visit Diagnoses Not on filedocumented in this encounter Care Teams Telephone Answerer Relationship Specialty Start Date End Date Maureen Lua APRN [address] [place] [address] PCP - General Internal Medicine 08/18/18 documented as of this encounter
--- OUTSIDE RECORDS SUMMARY | 2023-11-02 04:04 | XMS_ITS | Encounter Summary ---
[place] [address] Care Team Providers Care Export Freight Specialist Name Role Phone Maureen Lua APRN Primary Care Provider [phone] Reason for Visit * Reason Onset Date Comments Medication Refill 03/12/2019 Medication Refill 03/19/2019 Encounter Details Date Type Department Care Team (Late st Contact Info) Description 03/12/2019 [place] [id number] Deni Duran, RN High risk medication use; Inflammatory arthropathy; Morning joint stiffness Social History Tobacco Use Types Packs/Day Years Used Date Smoking Tobacco: Never Smokeless Tobacco: Never Sex and Gender Information Value Date Recorded Sex Assigned at Not on file Gender Identity Not on file Sexual Orientation Not on file documented as of this encounter Miscellaneous Notes * Telephone Encounter - Deni Duran, RN - 03/13/2019 12:43 PM EST Images from the original note were not included. Ney Hickman MD to Me ?? 12:27 PM No recent labs to look at Cr, LFTs, CBC He is worried about stomach ulcers. ??I had discussed with him that indomethacin (bcs of the increased risk) was not the right drug and that if he wanted to continue should go through the primary or switch to Celebrex. Alex Brewster Discussed with patient. Labs may be done at [facility]. Patient advised if would like to continue with indomethacin, to obtain from pcp. Discussed celebrex with patient and patient is amenable to trial of celebrex. Standing lab orders faxed to [facility]. documented in this encounter Plan of Treatment Not on file documented as of this encounter Visit Diagnoses Diagnosis High risk medication use Encounter for long-term (current) use of other medications Inflammatory arthropathy Arthropathy, unspecified, site unspecified Morning joint stiffness Stiffness of joint, not elsewhere classified, unspecified site documented in this encounter Care Teams Export Freight Specialist Relationship Specialty Start Date End Date Maureen Lua APRN [address] [place] [address] PCP - General Internal Medicine 08/18/18 documented as of this encounter
--- OUTSIDE RECORDS SUMMARY | 2023-11-02 04:04 | XMS_ITS | Encounter Summary ---
Author Organization [facility] Address [facility] [place] [address] Care Team Providers Care Procurement Manager Name Role Phone Maureen Lua APRN Primary Care Provider [phone] Reason for Referral * Consultation (Routine) - Specialty Diagnoses / Procedures Referred By Contac t Referred To Contact Diagnoses Neck pain Chronic bilateral low back pain without sciatica Ney Hickman MD [address] [place] [address] Referral ID Status Reason Start Date Expiration Date V isits Requested Visits Authorized [id number] Consult, Test & Treat 05/17/2019 11/13/2019 1 1 Encounter Details Date Type Department Care Team (Latest Contact Info) Description 05/17/2019 2:00 PM EDT Office [place] [address] Ney Hickman MD [address] [place] [address] High risk medication use; Inflammatory arthropathy; Ankylosing spondylitis, unspecified site of spine; Osteoarthritis, unspecified osteoarthritis type, unspecified site; Neck pain; Chronic bilateral low back pain without sciatica Social History Tobacco Use Types Packs/Day Years Used Date Smoking Tobacco: Never Smokeless Tobacco: Never Sex and Gender Information Value Date Recorded Sex Assigned at Not on file Gender Identity Not on file Sexual Orientation Not on file documented as of this encounter Last Filed Vital Signs Vital Sign Reading Time Taken Comments Blood Pressure 100/61 05/17/2019 1:40 PM EDT Pulse 52 05/17/2019 1:40 PM EDT Temperature 36.7 ??C (98 ??F) 05/17/2019 1:40 PM EDT Respiratory Rate - - Oxygen Saturation 97% 05/17/2019 1:40 PM EDT Inhaled Oxygen Concentration - - Weight 62.6 kg (138 lb) 05/17/2019 1:40 PM EDT Height 167.6 cm (5' 6) 05/17/2019 1:40 PM EDT Body Mass Index 22.27 05/17/2019 1:40 PM EDT documented in this encounter Progress Notes * Ney Hickman MD - 05/17/2019 2:00 PM EDT Rheumatology Follow -U[p Note Rheumatology Hx ?? ankylosing spondylitis ?? On enbrel Enbrel ?? Previously on Cosentyx and Humara ?? Vicadin ?? Hx of ankylosing spondylitis [...] pain takes a daily also is on Hickory.. He has stomach issues with NSAIDs takes his Dexilant after meals does not use NSAIDs with food. I have reviewed the provided records, pertinent records available at the time of the [facility] appointment with in the medical record and any forms completed by the patient. These have been scanned into the medical record for future review. Interval HX Erasto Chapman is a 58 y.o. male with as noted above he still is today mid back and neck pain..No swelling redness or warmth. Reduced range of motion in the neck. Pain in neck and mid back. 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 He takes Vicodin which is prescribed by his PCP. Doing about the same without NSAIDS did not want clebrex bcs oc [facility] risk. Advised indomethacin same risk. Fatigue has sleep apnea no neeraj fountain taking care of mom who has trach using a sleeping pill per PCP Patient denies Achilles tendonitis, plantar fasciitis, diffuse tendonitis, chest wall pain and eye pain ROS: General (-)fevers, (-)chills, HEENT (-)head trauma, [...] file Gets together: Not on file Attends oriental orthodox service: Not on file Active member of [...] Outpatient Medications Medication Sig Dispense Refill ??? celecoxib (CeleBREX) 100 mg Capsule Take 1-2 capsules by mouth daily 60 capsule 5 ??? ENBREL SURECLICK Pen Injector Inject 50 [...] to Visit Medication Sig Dispense Refill ??? celecoxib (CeleBREX) 100 mg Capsule Take 1-2 capsules by mouth daily 60 capsule 5 ??? ENBREL SURECLICK Pen Injector Inject 50 [...] to visit. No Known Allergies Physical Exam: BP 100/61 Pulse 52 Temp 36.7 ??C (98 ??F) (Oral) Ht 167.6 cm (5' 6) Wt 62.6 kg (138 lb) SpO2 97% BMI 22.27 kg/m?? General: NAD HEENT: Mucous membranes are moist, no oral mucosal ulcerations Neck: , full range of motion. Cardiovascular: RR Lungs: Clear to auscultation bilaterally Abdomen: Soft, non tender, non distended, + bowel sounds, Neuro: Alert and oriented x3. Cranial nerves II through XII grossly intact. - Skin: (-)ulcers, (-)rash Vascular: Pulses are equal in all extremities. MSK Back: Non tender over the spine and costovertebral angles bilaterally. , ( heel to wall within normal limits imka 15 no done this visit) Spine, shoulders, elbows, wrists, fingers, hips, knees and ankles; no active swelling, tenderness or synovitis at any joint. No soft tissue nodules. Assessment, Plan or Recommendation: Erasto Chapman is a 58 y.o. male who presents today with ankylosing spondylitis with hx of ARGELIA andGOUT? Likely patient had Ankylosing spondylitis partial fusion patient was seen in the pain clinic to discuss PT and possible injections patient continued to PT at home. Neck pain and imaging consistent DDD Lower back pain 2/2 - poor response with NSAIDs Pain referral Dz and medication monitoring labs q 3 months Avoid extra tylenol since on Vicodin per PCP Turmeric 1000mg bid Rec Voltaren gel for peripheral joint pain High concern over NSAID risk with little benefit He feels he did best when he was on Enbrel. Is unclear if Saritha will be helpful and I do not see activeactive disease on the MRI reads I think it makes sense to go back to Enbrel tosee if patient As previously documented this pain seems to be more mechanical in nature however risk-benefit was discussed with the patient so we will look to see if we need to repeat labs in order to get them to improve if we do we will send that to.\ Patient does have degenerative disc disease both in the cervical and mid thoracic spine he may needan MRI of his neck to further ascertain damage. From degenerative disc disease versus a S No orders of the defined types were placed in this encounter. documented in this encounter Plan of Treatment Scheduled Referrals Name Type Priority Associated Diagnoses Order Schedule Referral to Pain Management Outpatient Referral Routine Neck pain Chronic bilateral low back pain without sciatica Ordered: 05/17/2019 documented as of this encounter Visit Diagnoses Diagnosis High risk medication use Encounter for long-term (current) use of other medications Inflammatory arthropathy Arthropathy, unspecified, site unspecified Ankylosing spondylitis, unspecified site of spine Osteoarthritis, unspecified osteoarthritis type, unspecified site Neck pain Cervicalgia Chronic bilateral low back pain without sciatica documented in this encounter Care Teams Procurement Manager Relationship Specialty Start Date End Date Maureen Lua APRN [address] [place] [address] PCP - General Internal Medicine 08/18/18 documented as of this encounter
--- OUTSIDE RECORDS SUMMARY | 2023-11-02 04:04 | XMS_ITS | Encounter Summary ---
[place] [address] Care Team Providers Care Business Administrator Name Role Phone Maureen Lua APRN Primary Care Provider [phone] Reason for Visit * Reason Comments Medication Management Encounter Details Date Type Department Care Team (Late st Contact Info) Description 05/28/2020 Specialty [place] [phone] Dayday Ochoa, [facility] Social History Tobacco Use Types [...] as of this encounter Progress Notes * Dayday Ochoa [facility] - 05/28/2020 4:20 PM EDT Clinical Management Plan: Refill Specialty Pharmacy Consultation; Dayday Ochoa [facility] Comprehensive Medication Management (CMM) Erasto Chapman Mr. Erasto Chapman is a 59 y.o. (1960) male who was contacted in regard to a specialty medication refill reminder. Spoke with caregiver. Caregiver name: regarding Enbrel. A review of the medication therapy was performed. The medication was Refilled as scheduled, and all medication related questions [...] beneficiary Provider: plan sponsor pharmacist Visit Type: [facility] Follow-up Method of Contact: by telephone Cognitive Ability: good Allergies and Drug intolerance: No Known Allergies Medication Reconciliation Discrepancies (compared to [facility] med list) -none New medications: no New medical conditions: no New allergies: no Adherence: Medication Adherence What concerns does the patient have in regards to their medications: Many delayed doses Patient reported X missed doses in the last month: 0 Any gaps in refill history greater than 2 weeks in the last 3 months: no Demonstrates understanding of importance of adherence: yes Informant: spouse Reliability of informant: reliable Provider-estimated medication adherence level: 76-89% Reasons for non-adherence: patient forgets Support network for adherence: family member Confirmed plan for next specialty medication refill: delivery by pharmacy Refills needed for supportive medications: not needed Are you experiencing any side effects from your medications? no *pt often forgets to inject weekly and delays doses. I talked to his about the importance of once a week injections and offered some ideas to achieve adherence. She uses a calendar for remindersand she will highlight the injection day so it sticks out for him. I also mentioned pairing the injection with another once a week occurrence. Pt understands no changes to current drug regimen were made at the appointment and that [facility] is providing recommendations (summary located at top of note) for provider review and follow up. Dayday Ochoa RPH 05/28/20 4:22 PM documented in this encounter Plan of Treatment Not on file documented as of this encounter Visit Diagnoses Not on filedocumented in this encounter Care Teams Business Administrator Relationship Specialty Start Date End Date Maureen Lua APRN [address] [facility] [place] [address] PCP - General Internal Medicine 08/18/18 documented as of this encounter
--- OUTSIDE RECORDS SUMMARY | 2023-11-02 04:04 | XMS_ITS | Encounter Summary ---
[place] [address] Care Team Providers Care Automotive Instructor Name Role Phone Maureen Lua APRN Primary Care Provider [phone] Reason for Visit * Reason Comments Patient Education Medication Management Encounter Details Date Type Department Care Team (Late st Contact Info) Description 10/20/2020 Specialty [place] [phone] Kan Santacruz [facility] Social History Tobacco Use Types Packs/Day [...] this encounter Progress Notes * Kan Santacruz [facility] - 10/20/2020 2:53 PM EDT Clinical Management Plan: Refill Specialty Pharmacy Consultation; Kan Santacruz [facility] Comprehensive Medication Management (CMM) Ersato Akers Ari Mr. Erasto Chapman is a 59 y.o. (1960) male who was contacted in regard to a specialty medication refill reminder. Contact made with caregiver. Caregiver name: Juanis () regarding Enbrel. Areview of the medication therapy was performed. The medication was refilled as scheduled, and all medication related questions and concerns were addressed. The specialty pharmacy staff will follow upwith the patient 5-7 days prior to next refill. Was a change made to the Care Plan: No Allergies and Drug intolerance: No Known Allergies Medication Reconciliation Discrepancies (compared to [facility] med list) No Specialty Pharmacy Refill Questionnaire Refill Questionnaire 10/20/2020 What is the name of the specialty medication you are refilling? enbrel Are you taking any new medications? No Please explain - Any new medical condition? No Any new allergies? No Any new side effects that are bothersome? No What date will you need this fill by? 10/26/2020 Adherence: Any missed doses? No Patient understands no changes to current drug regimen were made.. Kan Santacruz RPH 10/20/20 2:54 PM documented in this encounter Plan of Treatment Not on file documented as of this encounter Visit Diagnoses Not on filedocumented in this encounter Care Teams Automotive Instructor Relationship Specialty Start Date End Date Maureen Lua APRN [address] [facility] [place] [address] PCP - General Internal Medicine 08/18/18 documented as of this encounter
--- OUTSIDE RECORDS SUMMARY | 2023-11-02 04:04 | XMS_ITS | Encounter Summary ---
Author Organization [facility] [place] [address] Care Team Providers Care Player Piano Technician Name Role Phone Maureen Lua APRN Primary Care Provider Reason for Referral * Consultation (Routine) - Closed Specialty Diagnoses / Procedures Referred By Contac t Referred To Contact Hematology and Oncology Diagnoses Elevated ferritin level Maureen Lua APRN [address] [place] [address] [facility] [address] [place] [phone] Referral ID Status Reason Start Date Expiration Date V isits Requested Visits Authorized [id number] Closed Consult, Test & Treat PCP Updated and/or Approved 10/27/2021 10/27/2022 6 6 Encounter Details Date Type Department Care Team (Latest Contact Info) Description 10/27/2021 Transcribe Orders eDH Incoming Referrals [phone] Maureen Lua APRN [address] [place] [address] Elevated ferritin level Social History Tobacco Use Types Packs/Day Years Used Date Smoking Tobacco: Never Smokeless Tobacco: Never Alcohol Use Standard Drinks/Week Comments Not Currently 0 (1 standard drink = 0.6 oz pur e alcohol) Sex and Gender Information Value Date Recorded Sex Assigned at Not on file Gender Identity Not on file Sexual Orientation Not on file documented as of this encounter Plan of Treatment Scheduled Referrals Name Type Priority Associated Diagnoses Order Schedule Referral to Hematology and Oncology Outpatient Referral Routine Elevated ferritin level Ordered: 10/27/2021 documented as of this encounter Visit Diagnoses Diagnosis Elevated ferritin level Other abnormal blood chemistry documented in this encounter Care Teams Player Piano Technician Relationship Specialty Start Date End Date Maureen Lua APRN [address] [place] [address] PCP - General Internal Medicine 08/18/18 documented as of this encounter
--- OUTSIDE RECORDS SUMMARY | 2023-11-02 04:04 | XMS_ITS | Encounter Summary ---
[place] [address] Care Team Providers Care Customs And Border Protection Inspector Name Role Phone Maureen Lua APRN Primary Care Provider [phone] Reason for Referral * Diagnostic Test (Routine) - Closed Specialty Diagnoses / Procedures Referred By Contac t Referred To Contact Radiology Diagnoses Elevated ferritin Procedures MRI Abdomen wwo Contrast (Generic) Cristobal Chavez MD [facility] [address] HEMAT[place] [address] [place] [address] Referral ID Status Reason Start Date Expiration Date V isits Requested Visits Authorized [id number] Closed Specialty Service Requested 12/17/2021 06/18/2023 1 1 Encounter Details Date Type Department Care Team (Late st Contact Info) Description 12/17/2021 Orders Only Hematology [place] [address] Cristobal Chavez MD [facility] [place] [address] Elevated ferritin Social History Tobacco Use Types [...] place to sleep or slept in a long-term (including now)? No 11/26/2021 Sex and Gender Information Value Date Recorded Sex Assigned at Not on file Gender Identity Not on file Sexual Orientation Not on file documented as of this encounter Plan of Treatment Not on file documented as of this encounter Results * MRI Abdomen wwo [...] who have questions please contact the health primary care provider that requested your imaging first. ? Electronically signed by: Jay García MD, [facility] ([phone]), at 01/15/2022 5:09 PM Narrative 01/15/2022 5:09 [...] resident's interpretationand agree with the findings, Jay Garíca MD at 01/15/2022 5:09 PM Thank you for letting us participate in the care of this patient. If youare a health care provider and have any questions regarding this report,please contact the number below. For patients who have questions please contactthe health primary care provider that requested your imaging first. Electronically signed by: Jay García MD, [facility]([phone]), at 01/15/2022 5:09 PM Cristobal Chavez MD [facility] [place] ORDERABLES documented in this encounter Visit Diagnoses Diagnosis Elevated ferritin Other abnormal blood chemistry Elevated ferritin Other abnormal blood chemistry documented in this encounter Care Teams Customs And Border Protection Inspector Relationship Specialty Start Date End Date Maureen Lua APRN [address] [place] [address] PCP - General Internal Medicine 08/18/18 documented as of this encounter
--- OUTSIDE RECORDS SUMMARY | 2023-11-02 04:04 | XMS_ITS | Encounter Summary ---
[place] [address] Care Team Providers Care Pattern Lease Inspector Name Role Phone Maureen Lua APRN Primary Care Provider [phone] Reason for Visit * Reason Comments Specialty Refill Management Enbrel Encounter Details Date Type Department Care Team (Late st Contact Info) Description 08/20/2020 Specialty [place] [phone] Sandra Linder, [facility] Social History Tobacco Use [...] as of this encounter Progress Notes * Sandra Linder - 08/20/2020 3:16 PM EDT Clinical Management Plan: Refill Specialty Pharmacy Consultation; Sandra Linder Comprehensive Medication Management (CMM) Erasto Akers Ari [...] Known Allergies Medication Reconciliation Discrepancies (compared to [facility] med list) No Specialty Pharmacy Refill Questionnaire Refill Questionnaire 08/20/2020 What is the name of the specialty medication you are refilling? Enbrel Are you taking any new medications? No Any new medical condition? No Any new allergies? No Any new side effects that are bothersome? No What date will you need this fill by? 08/27/2020 Adherence: Any missed doses? No Patient understands no changes to current drug regimen were made.. Sandra Linder 08/20/20 3:17 PM documented in this encounter Plan of Treatment Not on file documented as of this encounter Visit Diagnoses Not on filedocumented in this encounter Care Teams Pattern Lease Inspector Relationship Specialty Start Date End Date Maureen Lua APRN [address] [place] [address] PCP - General Internal Medicine 08/18/18 documented as of this encounter
--- OUTSIDE RECORDS SUMMARY | 2023-11-02 04:05 | XMS_ITS | Encounter Summary ---
[place] [address] Care Team Providers Care Government Contracts Manager Name Role Phone Maureen Lua APRN Primary Care Provider [phone] Reason for Visit * Reason Onset Date Comments Prior Authorization 01/25/2019 Enbrel Surec lick Encounter Details Date Type Department Care Team (Late st Contact Info) Description 01/25/2019 [place] [address] Melvin Jean CPHT Prior Authorization (Enbrel Sureclick) Social History Tobacco Use Types Packs/Day Years Used Date Smoking Tobacco: Never Smokeless Tobacco: Never Sex and Gender Information Value Date Recorded Sex Assigned at Not on file Gender Identity Not on file Sexual Orientation Not on file documented as of this encounter Miscellaneous Notes * Telephone Encounter - Melvin Jean CPHT - 01/26/2019 11:37 AM EST [facility], Prior Authorization Approval Medication Name: Enbrel Sureclick 50 mg/ml SOAJ FILLABLE AT [facility]? yes APPROVAL DATES: 10/27/2018-01/25/2020 SPECIFIC INS REQUIREMENT: May Fill With [facility] CASE/REFERENCE # [id number] APPROVAL NOTIFICATION RECEIVED VIA: Fax COPAY: $8.50 COPAY ASSISTANCE NEEDED?: No NOTES: * Telephone Encounter - Melvin Jean CPHT - 01/25/2019 3:13 PM EST [facility], Medication Prior Authorization Patient: Erasto Chapman Patient : 1960 Patient Address: [address] [facility] [address] (home) Medication: Enbrel Sureclick Subscriber Insurance: [employer] ([employer]) Fax: Physician: Ney Hickman Sent Via: PENDING SALE TO [facility] Bryant: [id number] Ref/Case/PA#: Medication Strength Frequency Requested: Enbrel Sureclick 50 mg/ml SOAJ Inject 50 mg (1 Pen) Subcutaneously Once A Week Qty/Day Supply: 07/02 New Start: Yes Diagnosis & ICD-10 Code: Ankylosing Spondylitis M45.9 documented in this encounter Plan of Treatment Not on file documented as of this encounter Visit Diagnoses Not on filedocumented in this encounter Care Teams Government Contracts Manager Relationship Specialty Start Date End Date Maureen Lua, AMMY [address] [place] [address] PCP - General Internal Medicine 08/18/18 documented as of this encounter
--- OUTSIDE RECORDS SUMMARY | 2023-11-02 04:05 | XMS_ITS | Encounter Summary ---
Author Organization [facility] [place] [address] Care Team Providers Care Finish Remover Name Role Phone Olaf Sahni MD Primary Care Provider + Reason for Visit * Reason Comments Hematuria Encounter Details Date Type Department Care Team (Late st Contact Info) Description 07/26/2014 1:00 PM EDT [place] [address] Cj Napier MD [facility] [place] [address] Hematuria, unspecified Discharge Disposition: Home Social History Tobacco Use Types Packs/Day Years Used Date Smoking Tobacco: Never Smokeless Tobacco: Never Sex and Gender Information Value Date Recorded Sex Assigned at Not on file Gender Identity Not on file Sexual Orientation Not on file documented as of this encounter Last Filed Vital Signs Vital Sign Reading Time Taken Comments Blood Pressure 126/66 07/26/2014 12:53 PM EDT Pulse 63 07/26/2014 12:53 PM EDT Temperature - - Respiratory Rate 16 07/26/2014 12:53 PM EDT Oxygen Saturation - - Inhaled Oxygen Concentration - - Weight 65.8 kg (145 lb) 07/26/2014 12:53 PM EDT Height 167.6 cm (5' 6) 07/26/2014 12:53 PM EDT Body Mass Index 23.4 07/26/2014 12:53 PM EDT documented in this encounter Progress Notes * Cj Napier MD - 07/26/2014 1:22 PM EDT Urologic Outpatient Consult Note HPI: Erasto Chapman is a 53 y.o. year old male referred by Olaf Sahni for evaluation of microhematuria. Patient today presents with his for evaluation of microhematuria found on routine physical exam. Patient does have a history of nephrolithiasis in the past however he has had no flank pain nausea vomiting or symptoms consistent with nephrolithiasis. He has no history of smoking or secondary smoke. Past medical history Chronic back pain with ankylosing spondylitis Nephrolithiasis Past surgical history None reported Social history he does not smoke rarely uses alcohol lives with his and child Family history of cancer PHYSICAL EXAM: Vital signs normal - see Data Flow Sheet Oriented to person, place and time. Healthy appearance. Color normal. No significant skin lesions. Head: normocephalic and atraumatic Lymph: No cervical, supraclavicular or inguinal lymphadenopathy Chest symmetric with equal excursion lungs are clear to auscultation Heart is regular rate and rhythm Abdomen: benign without masses, rebound, guarding, or tenderness. No hepatosplenogmegaly. No CVA tenderness. : Bilateral descended testes normal scrotum normal circumflex phallus normal meatus Extremities are without clubbing cyanosis or edema The ultrasound is not available neither is the CT scan Impression and plan Microhematuria with a history of stones the past. He reportedly did have an ultrasound and reportedly is normal. Would recommend cystoscopy and if normal follow-up in 6 months for urinalysis and cytology at that time. Cj Napier MD documented in this encounter Plan of Treatment Not on file documented as of this encounter Procedures Procedure Name Priority Date/Time Associated Diagnosis Comments URINALYSIS WITH REFLEX CULTURE Routine 07/26/2014 1:23 PM EDT Hematuria, unspecified CYTOPATHOLOGY NON-GYNECOLOGICAL Routine 07/26/2014 1:23 PM EDT Hematuria, unspecified NON-STREET PHOTOGRAPHER FINAL REPORT Routine 07/26/2014 1:16 PM EDT documented in this encounter Results * Cytopathology Non-Gynecological (07/26/2014 1:23 PM EDT) AP Specimen 07/26/2014 1:23 PM EDT 07/26/2014 1:23 PM EDT Narrative CERNER MILLENNIUM - 07/26/2014 1:23 PM EDT Specimen requisition ordered. ??Separate Pathology report to follow Cj Napier MD PATHOLOGY/ CYTOLOGY ORDERABLES CERNER MILLENNIUM * (ABNORMAL) Urinalysis with microscopic (07/26/2014 1:23 PM EDT) Glucose, Urine Dipstick Negative Negative mg/dL CERNER MILLENNIUM Protein, Urine Dipstick Negative Negative mg/dL CERNER MILLENNIUM Bilirubin, Urine Dipstick Negative Negative mg/dL CERNER MILLENNIUM Comment: Clinical correlation required for positive Urine Bilirubin results as false positive may occur with some drugs and drug related products. If a false positive is suspected a serum total bilirubin should be considered if clinically indicated. Urobilinogen, Urine Dipstick Normal Normal mg/dL CERNER MILLENNIUM pH, Urn (dipstick) 5.0 5.0 - 8.0 CERNER MILLENNIUM Blood, Urine Dipstick Small(A) Negative mg/dL CERNER MILLENNIUM Ketone, Urine Dipstick Negative Negative mg/dL CERNER MILLENNIUM Nitrite, Urine Dipstick Negative Negative CERNER MILLENNIUM Leukocytes, Urine Dipstick Negative Negative mcL CERNER MILLENNIUM Appearance, Urine Dipstick Clear Clear CERNER MILLENNIUM Specific [place] Urine Automated 1.018 1.002 - 1.030 CERNER MILLENNIUM Color, Urine Dipstick Yellow Yellow CERNER MILLENNIUM RBC, Urine 5(H) 0 - 3 /HPF CERNER MILLENNIUM WBC, Urine 1 0 - 3 /HPF CERNER MILLENNIUM Urine specimen (specimen) 07/26/2014 1:23 PM EDT 07/26/2014 3:14 PM EDT Narrative Resulting Agency Comment Spec In Lab Cj Napier MD URINE ANNA [facility]GRATHMAN[facility] FILIPE BROOKS * Non-Repeat Chief Final Report (07/26/2014 1:16 PM EDT) Diagnosis Discussion ? [facility] ? Provider: ?? KIKE NAPIER- Pt. Name: ?? ERASTO CHAPMAN ?PAULA Chavira ? Acc #: ?[id number] ?Pt. ? Col Date: ?? 07/26/2014 ? /Sex: ?1960,(53 years),Male ? Rec Date: ?? 07/26/2014 ? LOC: ?5B ? CYTOPATHOLOGY: ??NGYN ? ---Cytopathologi c Diagnosis--- ? Atypical ? 07/30/14 ?Screened by: ? SLA ? Rescreened by: ?? XL ? 07/30/14 ?Verified by: ? Swapna Boss MD ?Pathologist ?(Electronic Signature) ? ---Comment--- ? Urine, Voided: ? Rare clusters of urothelial cells are noted in a voided sample. These can ? be seen in lithiasis, infection, low grade neoplasms, etc. Clinical ? correlation is required. ? Squamous cells, red blood cells and crystals are also seen. ? ---Clinical Information--- ? Specimen Source: ?Urine, Voided ? Pertinent Clinical Data and Significant Therapy: ?Hematuria ? Clinical Impression: ?Hematuria ? Pertinent Radiologic Findings: ?(not provided) ? Gross Description: ?Received in 50% ETOH, approximately 70 ml. total volume of clear, yellow ? fluid. ?Total Preparation: Liquid Based Prep 1. 07/30/2014 1:21 PM EDT [facility] URINE SPECIMEN OBTAINED BY CLEAN CATCH PROCEDURE / Unknown 07/26/2014 1:16 PM EDT 07/26/2014 1:16 PM EDT Cj Napier MD PATHOLOGY/ CYTOLOGY ORDERABLES [facility] [place] [place] [address] documented in this encounter Visit Diagnoses Diagnosis Hematuria, unspecified documented in this encounter Care Teams Finish Remover Relationship Specialty Start Date End Date Olaf Sahni MD [address] [place] [address] PCP - General 01/27/10 12/14/16 documented as of this encounter
--- OUTSIDE RECORDS SUMMARY | 2023-11-02 04:05 | XMS_ITS | Encounter Summary ---
Author Organization [facility] [place] [address] Care Team Providers Care Stranding Supervisor Name Role Phone Maureen Lua APRN Primary Care Provider [phone] Encounter Details Date Type Department Care Team (Late st Contact Info) Description 12/20/2018 6:05 PM EDT Ancillary Procedure Radiology Library at [facility] [place] [address] Ney Hickman MD [facility] [place] [address] Social History Tobacco Use Types Packs/Day Years Used Date Smoking Tobacco: Never Smokeless Tobacco: Never Sex and Gender Information Value Date Recorded Sex Assigned at Not on file Gender Identity Not on file Sexual Orientation Not on file documented as of this encounter Plan of Treatment Not on file documented as of this encounter Procedures Procedure Name Priority Date/Time Associated Diagnosis Comments FILM LIBRARY STORAGE ONLY DX HAND Routine 12/20/2018 5:53 PM EDT documented in this encounter Results * Film Library- Storage Only DX Hand (12/20/2018 5:53 PM EDT) Narrative [facility] - 12/20/2018 5:53 PM EDT This exam is auto-finalizing. It's purpose is for storage only. Ney Hickman MD IMG FILM LIBRARY ORD ERABLES [place], [place] documented in this encounter Visit Diagnoses Not on filedocumented in this encounter Care Teams Stranding Supervisor Relationship Specialty Start Date End Date Maureen Lua, [employer] [address] [place] [address] PCP - General Internal Medicine 08/18/18 documented as of this encounter
--- OUTSIDE RECORDS SUMMARY | 2023-11-02 04:05 | XMS_ITS | Encounter Summary ---
Author Organization [facility] [place] [address] Care Team Providers Care Taxicab Driver Name Role Phone Maureen Lua APRN Primary Care Provider [phone] Encounter Details Date Type Department Care Team (Late st Contact Info) Description 01/25/2019 Ref[place] [address] Ney Hickman MD [facility] [place] [address] Social History Tobacco Use Types Packs/Day Years [...] on filedocumented in this encounter Care Teams Taxicab Driver Relationship Specialty Start Date End Date Maureen Lua APRN [address] [place] [address] PCP - General Internal Medicine 08/18/18 documented as of this encounter
--- OUTSIDE RECORDS SUMMARY | 2023-11-02 04:05 | XMS_ITS | Encounter Summary ---
Author Organization [facility] Address [address] [place] [address] Care Team Providers Care Biscuit Factory Worker Name Role Phone Chanell Maureen García FAMILY DINNER SERVICE SPECIALIST Primary Care Provider [phone] Reason for Visit * Reason Comments Medications Refill Encounter Details Date Type Department Care Team (Late st Contact Info) Description 03/09/2023 Refill [facility] Rheumatology & Immunology - [address] [phone] Riri Seymour MD [address] [place] [address], [address] [place] [address] Medications Refill Social History Tobacco Use Types Packs/Day Years Used Date Smoking Tobacco: Never Smokeless Tobacco: Former Chew Quit: 09/15/1979 Alcohol Use Standard Drinks/Week Comments Yes 0 (1 standard drink = 0.6 oz pur e alcohol) very rarely Interpersonal Safety Answer Date Record ed Physically Hurt Never 04/20/2020 Verbally Threaten Not on file 04/20/2020 Sex and Gender Information Value Date Recorded Sex Assigned at Not on file Gender Identity Male 11/06/2020 8:02 EDT Sexual Orientation Not on file documented as of this encounter Functional Status Functional Status Response Date of Assess ment Because of a physical, menta l, or emotional condition, does this person have difficulty doing errands alone such as visiting a doctor's office or shopping? Yes 08/29/2020 Cognitive Status Response Date of Assessm ent Because of a physical, menta l, or emotional condition, does this person have serious difficulty concentrating, remembering, or making decisions? Yes 08/29/2020 documented as of this encounter Ordered Prescriptions Prescription Sig Dispensed Refills Start Date End Da te etanercept (ENBREL SURECLICK) 50 mg/mL (1 mL) subcutaneous pen INJECT 50 MG UNDER THE SKIN ONCE WEEKLY 12 mL 1 03/10/2023 09/28/2023 documented in this encounter Plan of Treatment Upcoming Encounters Date Type Department Care Team (Late st Contact Info) Description 01/17/2024 9:00 EST Office Visit [facility] Rheumatology & Immunology [address] [id number] Butch Blair NP [address] [place] [phone] 07/26/2024 9:00 EDT Office Visit [facility] Rheumatology & Immunology [address] [phone] Riri Seymour MD [address] [place] [phone] documented as of this encounter Visit Diagnoses Not on filedocumented in this encounter Discontinued Medications Medication Sig Discontinue Reason Start Date End Da te etanercept (ENBREL SURECLICK) 50 mg/mL (1 mL) subcutaneous pen INJECT 1 ML INTO THE SKIN ONCE WEEKLY 02/24/2023 03/10/2023 documented as of this encounter Care Teams Biscuit Factory Worker Relationship Specialty Start Date End Date Maureen Lua NP [address] [place] [address] PCP - General 11/06/20 documented as of this encounter
--- OUTSIDE RECORDS SUMMARY | 2023-11-02 04:05 | XMS_ITS | Encounter Summary ---
Author Organization [facility] [place] [address] Care Team Providers Care Bellhop Service Captain Name Role Phone Maureen Lua APRN Primary Care Provider [phone] Encounter Details Date Type Department Care Team (Late st Contact Info) Description 12/20/2018 6:00 PM EDT Ancillary Procedure Radiology Library at [facility] [address] Ney Hickman MD [facility] [place] [address] Social History Tobacco Use Types Packs/Day Years [...] Diagnosis Comments FILM LIBRARY STORAGE ONLY DX SPINE Routine 12/20/2018 5:51 PM EDT documented in this encounter Results * Film Library- Storage Only DX Spine (12/20/2018 5:51 PM EDT) Narrative [facility] - 12/20/2018 5:51 PM EDT This exam is auto-finalizing. It's purpose is for storage only. Ney Hickman MD IMG FILM LIBRARY ORD ERABLES [place], [place] documented in this encounter Visit Diagnoses Not on filedocumented in this encounter Care Teams Bellhop Service Captain Relationship Specialty Start Date End Date Maureen Lua, HIGH SCHOOL DRAFTING TEACHER [address] [place] [address] PCP - General Internal Medicine 08/18/18 documented as of this encounter
--- OUTSIDE RECORDS SUMMARY | 2023-11-02 04:05 | XMS_ITS | Encounter Summary ---
Author Organization [facility] Address [address] [place] [address] Care Team Providers Care Creative Project Manager Name Role Phone ChanellMaureen jimenez LADIES' LOCKER ROOM ATTENDANT Primary Care Provider [phone] Reason for Visit * Reason Onset Date Comments Prior Auth, Medication 07/07/2022 Encounter Details Date Type Department Care Team (Late st Contact Info) Description 07/07/2022 Telephone [facility] Rheumatology & Immunology - [address] [address] Sobeida Syed RN Prior Auth, Medication Social History Tobacco Use Types Packs/Day Years [...] Dispensed Refills Start Date End Da te DULoxetine (CYMBALTA) 30 mg delayed release capsule Take 1 Capsule by mouth daily. 30 Capsule 3 07/20/2022 11/10/2022 documented in this encounter Miscellaneous Notes * Telephone Encounter - Belen Guardado RPH - 07/23/2022 1016 EDT Spoke with the patient. Relayed Dr. Kate's approval of duloxetine. Reviewed medication includingavoiding activities requiring mental alertness until the patient knows how duloxetine effects him. Recommended taking 1 capsule by mouth once daily consistently as abruptly stopping duloxetine can cause withdrawal. Reviewed side effect profile including fatigue, nausea, dry mouth, constipation and orthostatic hypotension. Reviewed how antidepressants can cause worsening mood. Asked the patient tocall clinic if duloxetine is not tolerated. Belen Guardado PharmD, [facility] Pharmacist Ambulatory Clinician - Rheumatology 07/23/2022 * Telephone Encounter - Belen Guardado RPH - 07/20/2022 1540 EDT Called patient to discuss trying duloxetine. Left a message asking for a callback. Belen Guardado PharmD, [facility] Pharmacist Ambulatory Clinician - Rheumatology 07/20/2022 * Addendum Note - Riri Kate MD - 07/20/2022 1453 EDTAddended by: RIRI KATE on: 07/20/2022 14:53 Modules accepted: Orders * Telephone Encounter - Riri Kate MD - 07/20/2022 1451 EDT Itz Glover, yes, we can try it and see. Sent a new perscription. Would you be able to let him know that we will try duloxetine? Riri Kate MD * Telephone Encounter - Belen Guardado RPH - 07/19/2022 1612 EDT Savella denied by insurance. Per denial letter, insurance requires documentation demonstrating the patient has failed, did not tolerate or has a contraindication to the formulary alternative duloxetine. Per notes, patient has tried duloxetine but discontinued for unknown reasons. Called the patientto clarify duloxetine trial. Patient could not remember why he discontinued duloxetine but believeshe did not give it a long enough trial. Patient stated he is willing to try duloxetine. Will reach out to Dr. Kate to discuss. Belen Guardado, PharmD, BCPS Pharmacist Ambulatory Clinician - Rheumatology 07/19/2022 * Telephone Encounter - Sobeida Syed RN - 07/07/2022 1209 EDT Insurance denied Savella and is asking for an alternative to be ordered. Sent Dr. Kate a messagewith covered formulary options to move forward with or if she would like to appeal. Will await her response. * Telephone Encounter - Sobeida Syed RN - 07/07/2022 0823 EDT Received fax from [facility] in [facility] regarding the need for PA for Savella. Placed ePA and awaiting approval. documented in this encounter Plan of Treatment Upcoming Encounters Date Type Department Care Team (Late st Contact Info) Description 01/17/2024 9:00 EST Office Visit [facility] Rheumatology & Immunology - [facility] [address], [place] [phone] Butch Blair NP [address] [facility], [address] [place] [phone] 07/26/2024 9:00 EDT Office Visit [facility] Rheumatology & Immunology - [facility] [address] [place] [address] Riri Kate MD [address] [facility], [address] [place] [phone] documented as of this encounter Visit Diagnoses Not on filedocumented in this encounter Discontinued Medications Medication Sig Discontinue Reason Start Date End Da te milnacipran 25 mg tablet Take 2 Tablets by mouth once daily. 07/05/2022 07/20/2022 documented as of this encounter Care Teams Creative Project Manager Relationship Specialty Start Date End Date Maureen Lua NP [address] [place] [address] PCP - General 11/06/20 documented as of this encounter
--- OUTSIDE RECORDS SUMMARY | 2023-11-02 04:05 | XMS_ITS | Encounter Summary ---
Author Organization [facility] Address [address] [place] [address] Care Team Providers Care Chest Painting And Sealing Supervisor Name Role Phone Maureen Lua NP Primary Care Provider [phone] Reason for Referral * PT/OT/ST (Routine/Next Available) - New Request Specialty Diagnoses / Procedures [facility] Referred To Contact Diagnoses Ankylosing spondylitis, unspecified site of spine (HCC-CMS) Neck pain Fibromyalgia Riri Seymour MD [address] [place] [phone] Referral ID Status Reason Start Date Expiration Date Visits Requested Visits Authorized [id number] New Request Specialty Services Required 11/23/2022 1 1 Question Answer Reason for Request: history of ankylsoing spondylitis and fibromyaglia, referred for pool therapy if possible. Reason for Visit * Reason Comments Follow-up General check-in Encounter Details Date Type Department Care Team (Late st Contact Info) Description 11/22/2022 14:20 EDT Telemedicine [facility] Rheumatology & Immunology - [address] [address] Riri Seymour MD [address] [place] [phone] Ankylosing spondylitis, unspecified site of spine (HCC-CMS) (Primary Dx); Neck pain; Fibromyalgia Social History Tobacco Use Types Packs/Day Years Used Date Smoking Tobacco: Never Smokeless Tobacco: Former Chew Quit: 09/15/1979 Tobacco Cessation:Counseling Given: Not Answered Alcohol Use Standard Drinks/Week Comments Yes 0 [...] Yes 08/29/2020 documented as of this encounter Progress Notes * Claudette Ruiz MA - 11/22/2022 1420 EDT TELEMEDICINE VIDEO VISIT Today's visit was provided through telemedicine video conferencing: I have reviewed the appropriateness of using video technology with the patient with regards to today's visit. The location of the patient : Home Patient location state: Visit Location State: [place] The location of the provider: Office Provider location state: Visit Location State: [place] The following people and their roles were present for today's visit: Appointment Provider: Riri Seymour MD CHENOA HUNT, MA The concept of ???Telemedicine?? has been described to the patient.? Patient has been informed of the anticipated benefits and possible risks.? Patient understands the information provided regardingtelemedicine, has had the opportunity to ask questions about this information, and all questions have been answered to patient???s satisfaction. Patient consents for the use of telemedicine in his/her medical care and authorizes the transmission of any relevant medical information to providers and their staff involved in patient???s medical or mental health care. Patient understands that they maybe responsible for copays, deductible or coinsurance for this service. * Riri Seymour MD - 11/22/2022 1420 EDT Division of Rheumatology and Clinical Immunology Televideo Visit Note The concept of ???Telemedicine?? has been described to the patient.? Patient has been informed of the anticipated benefits and possible risks.? Patient understands the information provided regardingtelemedicine, has had the opportunity to ask questions about this information, and all questions have been answered to patient???s satisfaction. Patient consents for the use of telemedicine in his/her medical care and authorizes the transmission of any relevant medical information to providers and their staff involved in patient???s medical or mental health care. Patient understands that they maybe responsible for copays, deductible or coinsurance for this service. TELEMEDICINE VIDEO VISIT Today's visit was provided through telemedicine video conferencing: I have reviewed the appropriateness of using video technology with the patient with regards to today's visit. The location of the patient : Home Patient location state: Visit Location State: [place] The location of the provider: Office Provider location state: Visit Location State: [place] The following people and their roles were present for today's visit: Appointment Provider: Riri Seymour MD Alana Margot Nevares, MD TELEPVIDEO FOLLOW UP NOTE: Date of Service: 11/22/22 Reason for follow up: , OA, fibromyalgia. History of Present Illness: Prior to starting the visit verbal consent for telepVIDEO visit was obtained. Erasto Chapman . is a 62 y.o. male. with past medical history of ARGELIA/Ankylosing spondylitis, osteoporosis, hypertension, dyslipidemia, B12 deficiency, chronic pain syndrome, secondary OA, is following up with me today Diagnosed with gout? around age??12. Reports his first MTP was swollen then. Two years later he wasdiagnosed with ARGELIA. Other joints involved knees, heels (walked on toes). Lower back??involvement??did not start until 30s. He was treated with NSAIDs (indomethacin). ?? He was treated here by Dr. Clancy for a number of years, started anti TNF therapy (etanercept), he was on etanercept about 14 to 15 years.??He??last saw Ayaka Phipps in 2014, and he was still on?Etanercept then. He was never pain free while on etanercept, though he found it quite effective??in general. He reports he had pain throughout even on etanercept, though not as severe. Back pain never subsided. He transferred his care to [place], he was switched to adalimumab, was on it for about 6months and later secukinumab for less than 1 year and most recently in 05/2019 while under the care of Dr. Hickman at [facility], he was switched back to etanercept. During our initial visit, we discussed that after my initial assessment I agreed that he had ankylosing spondylitis, but that this did not appear to be his current source of symptoms. He was thought to have osteoarthritis over multiple joints and also fibromyalgia (considering his fatigue, brain fog, constant pain without apparent joint swelling). Plan was to update umer carmona, start pregabalin and refer him to physical therapy, as well as continuing etanercept and follow up. It appears that he didnot tolerate pregabalin. He is now on duloxetine (insurance denied milnacipran). ?? TODAY: Did start duloxetine (after insurance denied milnacipran) She does have an eye appointment coming up. He is experiencing right sided headache and ocular pressure for the past few months. Stopped duloxetine few months ago and he does not feel headache today. He did tried Celebrex, and he was experiencing headaches and so he stopped. Denies swollen joints. His abdominal pain subsided, his endoscopy was reportedly not concerning. He remains on etanercept. Today, reports pain over neck and hands. Worse time of he day mornings. He also experiences pain at the end of the day. RAPID3 Summary Functional Status: 1.7 Pain Tolerance: 6.5 Global Estimate: 8 Score: 16.2 Interpretation: High 11/06/2020 9:11 10/08/2021 11:52 07/05/2022 9:58 11/22/2022 14:09 RAPID3 SCORES AND INTERPRETATION Functional Status 2.3 2.7 3.3 1.7 Pain Tolerance 7 6 7 6.5 Global Estimate 6 4 5.5 8 RAPID3 15.3 12.7 15.8 16.2 Interpretation High High High High ALLERGIES: Patient has no known allergies. Past Medical History: Diagnosis Date ??? Arthritis ??? Hypercholesteremia ??? Hypertension ??? Osteoporosis ??? Vitamin B 12 deficiency Past Surgical History: Procedure Laterality Date ??? FOOT SURGERY 1979 Replaced joint in big toe Family History Problem Relation Age of Onset ??? Cancer Mother throat ca ??? Cancer Father prostate ??? Heart Disease Father [place] at 54 ??? Heart Disease Brother at age 40 Social History Socioeconomic History ??? Marital status: Spouse name: Not on file ??? Number of children: Not on file ??? Years of education: Not on file ??? Highest education level: Not on file Occupational History ??? Not on file Tobacco Use ??? Smoking status: Never ??? Smokeless tobacco: Former Types: Chew Quit date: 09/15/1979 Vaping Use ??? Vaping Use: Never used Substance and Sexual Activity ??? Alcohol use: Yes Comment: very rarely ??? Drug use: Not on file ??? Sexual activity: Not on file Other Topics Concern ??? Not on file Social History Narrative ??? Not on file Social Determinants of Health Financial Resource Strain: Not on file Food Insecurity: Not on file Transportation Needs: Not on file Physical Activity: Not on file Stress: Not on file Social Connections: Not on file Housing Stability: Not on file REVIEW OF SYSTEMS: 10 organ review of system was negative except as in HPI PHYSICAL EXAMINATION: No physical exam performed LABS Component Latest Ref Rng 07/05/2022 WBC 4.00 - 10.40 K/cmm 4.40 RBC 4.36 - 5.78 M/cmm 4.90 Hemoglobin 13.8 - 17.3 gm/dL 15.6 HCT 39.5 - 50.2 % 44.1 MCV 81 - 95 fl 90 MCH 27.6 - 33.0 pg 31.8 MCHC 32.8 - 36.4 gm/dL 35.4 RDW-CV <14.2 % 12.2 RDW-SD <46.0 fl 40.4 PLT 141 - 377 K/cmm 178 MPV 9.5 - 12.7 fl 11.2 % Neutrophils % 60.0 % Lymphocytes % 31.4 % Monocytes % 6.6 % Eosinophils % 1.1 % Basophils % 0.7 % Immature Grans % 0.2 ABS Neutrophils 2.20 - 8.85 K/cmm 2.64 ABS Lymphs 1.09 - 3.30 K/cmm 1.38 ABS Monocytes 0.10 - 0.80 K/cmm 0.29 ABS Eosinophils 0.03 - 0.61 K/cmm 0.05 ABS Basophils 0.01 - 0.11 K/cmm 0.03 ABS Immature Grans 0.00 - 0.06 K/cmm 0.01 Type of Diff: Auto Sodium 136 - 145 mmol/L 142 Potassium 3.5 - 5.0 mmol/L 4.3 Chloride 96 - 110 mmol/L 103 CO2 22 - 32 mmol/L 32 Glucose, Serum 70 - 100 mg/dL 98 BUN 10 - 26 mg/dL 16 Creatinine 0.66 - 1.25 mg/dL 1.17 GFR, Calculated >60 mL/min/1.73m2 71 Total Protein 6.3 - 8.2 g/dL 7.8 Albumin 3.4 - 4.9 g/dL 4.5 Total Alkaline Phosphatase 38 - 126 U/L 89 AST 15 - 46 U/L 36 ALT <50 U/L 47 Bilirubin, Total <1.4 mg/dL 0.7 Calcium 8.5 - 10.5 mg/dL 9.3 ALBUMIN/GLOBULIN RATIO - PMC 1.0 - 2.5 1.4 Anion Gap 5 - 14 7 C-Reactive Protein <10.0 mg/L <7.0 Sed. Rate Westergren 0 - 20 mm/hr 2 IMAGING: XR entire spine 10/2021: IMPRESSION 1. Minimal endplate osteophyte formation in the cervical spine and thoracic spine 2. Ankylosis of the sacroiliac joints. Diagnosis / Assessment: Ankylosing spondylitis: he will remain on etanercept. Consider repeat X rays of axial skeleton at follow up OA and fibromyalgia: Strongly suggest PT. Could try a different SNRI (milnacipram). Suggest opioid weaning as tolerated. Recommendations/Evaluation: Continue etanercept Strongly recommend PT Continue duloxetine, unless headaches continue to be attributed to it. Recommend tapering opioid medications and trying other SNRI (milnacipram, if duloxetine is thought to be the source of headaches) Could try restarting celebrex Follow up in 8 Months I spent a total of 35 minutes on the date of this encounter meeting with the patient and reviewing documentation/coordinating care as described in the above note. No procedures were performed at the time of the visit. Riri Seymour MD documented in this encounter Plan of Treatment Upcoming Encounters Date Type Department Care Team (Late st Contact Info) Description 01/17/2024 9:00 EST Office Visit [facility] Rheumatology & Immunology [address] [id number] Butch Blair NP [address] [place] [phone] 07/26/2024 9:00 EDT Office Visit [facility] Rheumatology & Immunology [address] [id number] Riri Seymour MD [address] [place] [phone] Scheduled Referrals Name Type Priority Associated Diagnoses Order Schedule AMB CONS/FOLLOW UP PHYSICAL THERAPY - OUTSIDE OF NETWORK Outpatient Referral Routine/Next Available Ankylosing spondylitis, unspecified site of spine ([facility]-CMS) Neck pain Fibromyalgia Expected: 11/30/2022 (Approximate), Expires: 11/24/2023 documented as of this encounter Visit Diagnoses Diagnosis Ankylosing spondylitis, unspecified site of spine (HCC-CMS)- Primary Neck pain Cervicalgia Fibromyalgia Mylagia and myositis, unspecified documented in this encounter Care Teams Chest Painting And Sealing Supervisor Relationship Specialty Start Date End Date Maureen Lua NP [address] [place] [id number] PCP - General 9/2/21 documented as of this encounter
--- OUTSIDE RECORDS SUMMARY | 2023-11-02 04:05 | XMS_ITS | Clinical Summary ---
Author Organization [facility] Address [address] [place] [address] Care Team Providers Care Spraying Machine Operator Name Role Phone Maureen Lua LUMBER STRAIGHTENED Primary Care Provider [phone] Allergies No known active allergies Medications Medication Sig Dispensed Refills Start Date End Date Status simvastatin (ZOCOR) 40 mg tablet Take 1 Tablet by mouth daily. Active cyanocobalamin (VITAMIN B12) 1,000 mcg/mL injection Inject 0.1 mL into the muscle every 28 days. Active cyanocobalamin (VITAMIN B-12) 1,000 mcg tablet Take 1 Tablet by mouth daily. Active Aspirin 81 mg Tab Take 1 Tablet by mouth daily. Active hydrocodone-acetamino phen (NORCO) 5-325 mg per tablet Take 1 Tablet by mouth every 4 hours as needed. Active dexlansoprazole (DEXILANT) 60 mg capsule Take 1 Capsule by mouth daily. Active folic acid (FOLVITE) 800 mcg tablet Take 1 Tablet by mouth daily. Active Cholecalciferol, Vitamin D3, 50 mcg (2,000 unit) capsule Take 1 Capsule by mouth daily. Active MULTIVITAMIN ORAL Take 1 Tablet by mouth daily. Active hydroCHLOROthiazide (HYDRODIURIL) 25 mg tablet Take 0.5 Tablets by mouth daily. Active sulfaSALAzine (AZULFIDINE) 500 mg EC tablet Take 1 tablet twice daily for 2 weeks, then labs and then if normal increase to 2 tablets in AM and 1 tablet in PM. 90 Tablet 3 07/25/2023 Active etanercept (ENBREL SURECLICK) 50 mg/mL (1 mL) subcutaneous pen INJECT 50MG UNDER THE SKIN ONCE WEEKLY 12 mL 1 09/28/2023 Active Active Problems Patient Care Coordination No te Formatting of this note migh t be different from the original. Patient has given permission for [facility] to verbally discuss the following information with Juanis Ari who has the following relationship to the patient: Spouse/Partner: Scheduling/Appt/Billing/Payment Information (does not include clinical information unless specifically indicated with separate option) Medical Information including symptoms, diagnosis, medications, test results and treatment plan (does not include Mental Health unless specifically indicated with separate option) Mental Health (Behavioral,Psychiatric,Chemical Dependency) health information, including my symptoms, diagnosis, medications and treatment plan Permission remains in effect until the patient elects to revoke it. Problem Noted Date Diagnosed Date Ankylosing spondylitis ([facility]) 09/23/2009 Cobalamin deficiency 09/23/2009 Hypertensive disorder 09/23/2009 Encounters Date Type Department Care Team Description 09/27/2023 Refill [facility] Rheumatology Immunology [address] [address] Riri Seymour MD Medications Refill 09/14/2023 Telephone [facility] Rheumatology Immunology [address] [address] Riri Seymour MD Medication Management; Labs Only 08/10/2023 Telephone [facility] Rheumatology Immunology [address] [address] Riri Seymour MD Orders (Non Pre-visit) from Last 3 Months Immunizations Name Administration Dates Next Due Influenza (split) 12/05/2012 Surgical History Surgery Date Site/Laterality Comments FOOT SURGERY 1979 Replaced joint in big toe Medical History Medical History Date Comments Arthritis Hypertension Hypercholesteremia Vitamin B 12 deficiency Osteoporosis Family History Medical History Relation Comments Heart Disease Brother at age 40 Cancer Father prostate Heart Disease Father [place] at 54 Cancer Mother throat ca Relation Status Comments Brother Father Mother Social History Tobacco Use Types Packs/Day Years Used Date Smoking Tobacco: Never Passive Smoke Exposure: Past Smokeless Tobacco: Former Chew Quit: 09/15/1979 Tobacco Cessation:Counseling Given: Not Answered Passive Exposure Comments:parents smoked-childhood Alcohol Use Standard Drinks/Week Comments Yes 0 (1 standard drink = 0.6 oz pur e alcohol) very rarely Interpersonal Safety Answer Date Record ed Physically Hurt Never 04/20/2020 Verbally Threaten Not on file 04/20/2020 Sex and Gender Information Value Date Recorded Sex Assigned at Not on file Gender Identity Male 11/06/2020 8:02 EDT Sexual Orientation Not on file Obstetrics History Last Filed Vital Signs Vital Sign Reading Time Taken Comments Blood Pressure 139/83 07/25/2023 0822 EDT Pulse 56 07/25/2023 0822 EDT Temperature 35.6 ??C (96 ??F) 07/25/2023 0822 EDT Respiratory Rate 18 03/22/2014 1241 EST Oxygen Saturation 98% 03/24/2010 0810 EST Inhaled Oxygen Concentration - - Weight 65.8 kg (145 lb) 07/25/2023 0822 EDT Height 167.5 cm (5' 5.95) 07/25/2023 0822 EDT Body Mass Index 23.44 07/25/2023 0822 EDT Plan of Treatment Upcoming Encounters Date Type Department Care Team (Late st Contact Info) Description 01/17/2024 9:00 EST Office Visit [facility] Rheumatology & Immunology [address] [phone] Butch Blair NP [address] [place] [phone] 07/26/2024 9:00 EDT Office Visit [facility] Rheumatology & Immunology [address] [phone] Riri Seymour MD [address] [place] [phone] Health Maintenance Due Date Last Done Comments RSV Immunization ( o r 60+ Years) (1 - 1-dose 60+ series) 2021 COVID-19 Vaccine ( - 2022- season) 2022 Hepatitis C Screen Completed 08/28/2019, 01/16/2019 Procedures Procedure Name Priority Date/Time Associated Diagnosis Comments HEPATITIS C AB W REFLEX TO HCV RNA BY PCR Routine 08/28/2019 9:00 EDT from Last 3 Months or Most Recently Relevant to Health Maintenance Results * HEPATITIS C AB W REFLEX TO HCV RNA BY PCR (08/28/2019 9:00 EDT) Hep C Antibody Negative Negative 08/29/2019 10:46 EDT [facility] Blood VENOUS BLOOD / Unknown 08/28/2019 9:00 EDT 08/28/2019 16:05 EDT Provider Outr Resulting Lab CHEMISTRY & BLOOD GAS ORDERABLES [facility] [address] [place] [address] from Last 3 Months or Most Recently Relevant to Health Maintenance Care Teams Spraying Machine Operator Relationship Specialty Start Date End Date Maureen Lua NP [address] [place], [place] [phone] PCP - General 11/06/20
--- OUTSIDE RECORDS SUMMARY | 2023-11-02 04:05 | XMS_ITS | Encounter Summary ---
Author Organization [facility] Address [address] [place] [address] Care Team Providers Care Flat Clothier Name Role Phone Chanell Maureen García VERTICAL PUNCH OPERATOR Primary Care Provider [phone] Encounter Details Date Type Department Care Team (Late st Contact Info) Description 07/25/2023 9:30 EDT Phlebotomy Only [facility] ED Center 2 Phlebotomy [address] [place], [place] [phone] Sheet Metal Layout Mechanic, Acc Phlebotomy Ankylosing spondylitis, unspecified site of spine (HCC-CMS); At risk for side effect of medication Social History Tobacco Use Types Packs/Day Years Used Date Smoking Tobacco: Never Passive Smoke Exposure: Past Smokeless Tobacco: Former Chew Quit: 09/15/1979 Passive Exposure Comments:pa rents smoked-childhood Alcohol Use Standard Drinks/Week Comments Yes [...] difficulty concentrating, remembering, or making decisions? Yes 07/25/2023 documented as of this encounter Plan of Treatment Upcoming Encounters Date Type Department Care Team (Late st Contact Info) Description 01/17/2024 9:00 EST Office Visit [facility] Rheumatology & Immunology [address] [address] Butch Blair NP [address] [phone] 07/26/2024 9:00 EDT Office Visit [facility] Rheumatology & Immunology [address] [address] Riri Seymour MD [address] [phone] documented as of this encounter Procedures Procedure Name Priority Date/Time Associated Diagnosis Comments SED RATE Routine 07/25/2023 10:02 EDT Ankylosing spondylitis, unspecified site of spine (HCC-CMS) COMPLETE BLOOD COUNT AND DIFFERENTIAL Routine 07/25/2023 10:02 EDT Ankylosing spondylitis, unspecified site of spine (HCC-CMS) At risk for side effect of medication C REACTIVE PROTEIN Routine 07/25/2023 10 :02 EDT Ankylosing spondylitis, unspecified site of spine (HCC-CMS) At risk for side effect of medication COMPREHENSIVE METABOLIC PANEL (CMP) Routine 07/25/2023 10:02 EDT Ankylosing spondylitis, unspecified site of spine (HCC-CMS) At risk for side effect of medication documented in this encounter Results * SED RATE (07/25/2023 10:02 EDT) Sed Rate 2 0 - 20 mm/hr 07/25/2023 11:27 EDT [facility] Blood VENOUS BLOOD / Unknown Venipuncture / Unknown 07/25/2023 10:02 EDT 07/25/2023 10:49 EDT Riri Seymour MD HEMATOLOGY & PF4 ORDERABLES Performing Organization Address City/[facility]/ZIP Co de Phone Number [facility] [address] [place], [place] [phone] * C REACTIVE PROTEIN (07/25/2023 10:02 EDT) C-Reactive Protein <5.0 <10.0 mg/L 07/25/2023 11:22 EDT [facility] Blood VENOUS BLOOD / Unknown Venipuncture / Unknown 07/25/2023 10:02 EDT 07/25/2023 10:49 EDT Riri Seymour MD CHEMISTRY & BLOO D GAS ORDERABLES Performing Organization Address [facility] Co de Phone Number [facility] [address] [place], [place] [phone] * COMPLETE BLOOD COUNT AND DIFFERENTIAL (07/25/2023 10:02 EDT) WBC 4.91 4.00 - 10.40 K/cmm 07/25/2023 10:54 EDT [facility] RBC 5.07 4.36 - 5.78 M/cmm 07/25/2023 10:54 T [facility] Hemoglobin 16.0 13.8 - 17.3 g/dL 07/25/2023 10:54 T [facility] HCT 45.7 39.5 - 50.2 % 07/25/2023 10:54 [facility] MCV 90 81 - 95 fL 07/25/2023 10:54 T [facility] MCH 31.6 27.6 - 33.0 pg 07/25/2023 10:54 [facility] MCHC 35.0 32.8 - 36.4 g/dL 07/25/2023 10:54 T [facility] RDW-CV 12.4 <14.2 % 07/25/2023 10:54 [facility] RDW-SD 41.1 <46.0 fl 07/25/2023 10:54 [facility] PLT 175 141 - 377 K/cmm 07/25/2023 10:54 [facility] MPV 11.3 9.5 - 12.7 fL 07/25/2023 10:54 [facility] % Neutrophils 58.7 % 07/25/2023 10:54 [facility] % Lymphocytes 31.2 % 07/25/2023 10:54 [facility] % Monocytes 7.9 % 07/25/2023 10:54 [facility] % Eosinophils 1.8 % 07/25/2023 10:54 [facility] % Basophils 0.4 % 07/25/2023 10:54 [facility] % Immature Grans 0.0 % 07/25/19 10:54 [facility] Absolute Neutrophils 2.88 2.20 - 8.85 K/cmm 07/25/2023 10:54 [facility] Absolute Lymphocytes 1.53 1.09 - 3.30 K/cmm 07/25/2023 10:54 [facility] Absolute Monocytes 0.39 0.10 - 0.80 K/cmm 07/25/2023 10:54 [facility] Absolute Eosinophils 0.09 0.03 - 0.61 K/cmm 07/25/2023 10:54 [facility] ABS Basophils 0.02 0.01 - 0.11 K/cm 07/25/2023 10:54 [facility] Absolute Immature Grans 0.00 0.00 - 0.06 K/cm 07/25/2023 10:54 [facility] Type of Differential: Auto 07/25/2023 10:54 [facility] Blood VENOUS BLOOD / Unknown Venipuncture / Unknown 07/25/2023 10:02 EDT 07/25/2023 10:49 EDT Riri Seymour MD PACKAGES & DNA P GORGE ORDERABLES [facility] [address] [place] [address] * (ABNORMAL) COMPREHENSIVE METABOLIC PANEL (CMP) (07/25/2023 10:02 EDT) Sodium 144 136 - 145 mmol/L 07/25/2023 11:22 [facility] Potassium 3.7 3.5 - 5.0 mmol/L 07/25/2023 11:22 [facility] Chloride 101 96 - 110 mmol/L 07/25/2023 11:22 [facility] CO2 Total 31 22 - 32 mmol/L 07/25/2023 11:22 [facility] Glucose 95 70 - 99 mg/dl 07/25/2023 11:22 [facility] BUN 15 10 - 26 mg/dL 07/25/2023 11:22 [facility] Creatinine 1.05 0.66 - 1.25 mg/dL 07/25/2023 11:22 [facility] eGFR 81 >60 mL/min/1.7 3m2 07/25/2023 11:22 [facility] Total Protein 7.8 6.3 - 8.2 g/dL 07/25/2023 11:22 [facility] Albumin 4.7 3.4 - 4.9 g/dL 07/25/2023 11:22 [facility] Alkaline Phosphatase 104 38 - 126 U/L 07/25/2023 11:22 [facility] AST 40 15 - 46 U/L 07/25/2023 11:22 [facility] ALT 54(H) <50 U/L 07/25/2023 11:22 [facility] Bilirubin, Total 0.7 <1.4 mg/dL 07/25/19 11:22 [facility] Calcium 9.4 8.5 - 10.5 mg/dL 07/25/2023 11:22 EDT [facility] Albumin/Globulin Ratio 1.5 1.0 - 2.5 07/25/2023 11:22 EDT [facility] Anion Gap 12 5 - 14 mmol/L 07/25/2023 11:22 EDT [facility] Blood VENOUS BLOOD / Unknown Venipuncture / Unknown 07/25/2023 10:02 EDT 07/25/2023 10:49 EDT Riri Seymour MD CHEMISTRY & BLOO D GAS ORDERABLES [facility] [address] [place] [address] documented in this encounter Visit Diagnoses Diagnosis Ankylosing spondylitis, unspecified site of spine ([facility]-CMS) At risk for side effect of medication documented in this encounter Care Teams Flat Clothier Relationship Specialty Start Date End Date Maureen Lua NP [address] [place] [id number] PCP - General 11/06/20 documented as of this encounter
--- OUTSIDE RECORDS SUMMARY | 2023-11-02 04:05 | XMS_ITS | Encounter Summary ---
Author Organization [facility] Address [address] [place] [address] Care Team Providers Care Drop Wire Aliner Name Role Phone Maureen Lua SSN/SSBN ASSISTANT NAVIGATOR Primary Care Provider [phone] Reason for Visit * Reason Comments Follow-up Encounter Details Date Type Department Care Team (Late st Contact Info) Description 07/05/2022 10:00 EDT Office Visit [facility] Rheumatology & Immunology - [address] [id number] Riri Seymour MD [address] [place] [address], [address] [place] [address] Fibromyalgia (Primary Dx); Spondyloarthritis Social History Tobacco Use Types Packs/Day Years [...] Sign Reading Time Taken Comments Blood Pressure 140/90 07/05/2022 0956 EDT Pulse - - Temperature - - Respiratory Rate - - Oxygen Saturation - - Inhaled Oxygen Concentration - - Weight 68.5 kg (151 lb) 07/05/2022 0956 EDT Height 172 cm (5' 7.72) 07/05/2022 0956 EDT Body Mass Index 23.15 07/05/2022 0956 EDT documented in this encounter Functional Status Functional Status Response [...] Yes 08/29/2020 documented as of this encounter Patient Instructions * Patient Instructions* Riri Seymour MD - 07/05/2022 10:00 EDT Labs today Stop naproxen, start celebrex instead Start Savella in 3 weeks. Continue Enbrel Follow up with Sleep medicnie Follow up with PCP about stomach pain, continue dexilant Follow up with me in 4 months, we will do spine x rays then. Riri Seymour MD documented in this encounter Ordered Prescriptions Prescription Sig Dispensed Refills Start Date End Da te celecoxib (CELEBREX) 200 mg capsule Take 1 Capsule by mouth daily. 30 Capsule 3 07/05/2022 11/10/2022 milnacipran 25 mg tablet Take 2 Tablets by mouth once daily. 30 Tablet 3 07/05/2022 07/20/2022 documented in this encounter Progress Notes * Riri Seymour MD - 07/05/2022 1000 EDT [facility] Department of Rheumatology Follow Up Visit PCP Maureen Lua 07/05/2022 History of Present Illness: Erasto Chapman Sr. is a 61 y.o. male with past medical history of ARGELIA/Ankylosing spondylitis, osteoporosis, hypertension, dyslipidemia, B12 deficiency, chronic pain syndrome, secondary OA, is here for follow up Initially assessed 08/29/20: He reported he was diagnosed with gout around age 12. Reports his first MTP was swollen then. Two years later he was diagnosed with ARGELIA. Other joints involved knees, heels (walked on toes). Lower back involvement did not start until 30s. He was treated with NSAIDs (indomethacin). ?? He was treated here by Dr. Clancy for a number of years, started anti TNF therapy (etanercept), he was on etanercept about 14 to 15 years. He last saw Ayaka Phipps in 2014, and he was still on Etanercept then. He was never pain free while on etanercept, though he found it quite effective in general. He reports he had pain throughout even on etanercept, though not as severe. Back pain never subsided. He transferred his care to [place], he was switched to adalimumab, was on it for about 6 months and later secukinumab for less than 1 year and most recently in 05/2019 while under the care of at [facility], he was switched back to etanercept. ??He does not think it is working as well as when he started it in early 1999s. He is using it once weekly. ?? During our initial visit, we discussed that after my initial assessment I agreed that he had ankylosing spondylitis, but that this did not appear to be his current source of symptoms. He was thought to have osteoarthritis over multiple joints and also fibromyalgia (considering his fatigue, brain fog, constant pain without apparent joint swelling). Plan was to update x kristine, start pregabalin and refer him to physical therapy, as well as continuing etanercept and follow up. TODAY Pain is the same as when I last saw him. He is taking 1 to 2 500 mg naproxen tablets a day, he does have epigastric pain over the last month. He takes 1 to 2 hydrocodone a day. Remains on etanercept Reports hands, neck, lower back, knees and feet (mainly over previously surgically intervened toes). Worse areas pain of pain include neck and hands. Has pain all day, and every day. Pain is not worse in AM and at the end of the day. Has not done PT. Reports the worse symptom is fatigue. He is tearful about. He had a sleep study, has sleep apnea. He can't use the machine. He has not followed up with sleep medicine. He did have a heme follow up for the concern of iron overload and his MRI did not show iron overload over the liver and so he was not thought to require any further interventions. Review of Systems: I have reviewed the systems reviewed by the nurse Past Medical History: Diagnosis Date ??? Arthritis ??? Hypercholesteremia ??? Hypertension ??? Osteoporosis ??? Vitamin B 12 deficiency Past Surgical History: Procedure Laterality Date ??? FOOT SURGERY 1979 Replaced joint in big toe Family History Problem Relation Age of Onset ??? Cancer Mother throat ca ??? Cancer Father prostate ??? Heart Disease Father MT at 54 ??? Heart Disease Brother at [...] on file Housing Stability: Not on file No Known Allergies Current Outpatient Medications Medication Sig ??? Aspirin 81 mg Tab Take 81 mg by mouth daily. ??? Cholecalciferol, Vitamin D3, 50 mcg (2,000 unit) capsule Take by mouth. ??? cyanocobalamin (VITAMIN B-12) 1,000 mcg tablet Take 1,000 mcg by mouth daily. ??? cyanocobalamin (VITAMIN B12) 1,000 mcg/mL injection Inject 100 mcg into the muscle every 28 days. ??? dexlansoprazole (DEXILANT) 60 mg capsule Take 60 mg by mouth daily. ??? ENBREL SURECLICK 50 mg/mL (1 mL) subcutaneous pen INJECT 50 MG UNDER THE SKIN ONCE WEEKLY ??? folic acid (FOLVITE) 800 mcg tablet Take 0.8 mg by mouth daily. ??? hydroCHLOROthiazide (HYDRODIURIL) 25 mg tablet Take 12.5 mg by mouth daily. ??? hydrocodone-acetaminophen (NORCO) 5-325 mg per tablet Take 1 Tab by mouth every 4 hours as needed. ??? lisinopril (PRINIVIL, ZESTRIL) 5 mg tablet Take 10 mg by mouth daily. (Patient not taking: No sig reported) ??? MULTIVITAMIN ORAL Take by mouth. ??? naproxen (NAPROSYN) 500 mg tablet TAKE ONE TABLET BY MOUTH TWICE A DAY NEEDED FOR PAIN ??? simvastatin (ZOCOR) 40 mg tablet Take 40 mg by mouth daily. Physical exam: BP 140/90 (BP Cuff Location: Right arm, BP Patient Position: Sitting, BP Cuff Sizes: Adult, regular) Ht 172 cm (67.72) Wt 68.5 kg (151 lb) BMI 23.15 kg/m?? HEENT: moist oral mucosa, no ulcers Neck: No lymphadenopathy CV: S1 and S2 audible, rhythmic, no murmurs or rubs Respiratory: breath sounds audible throughout, no crackles or wheezing Abdomen: Bowel sounds audible, soft to deep palpation, no hepatomegaly or splenomegaly Skin: no rashes MSK: Neck: Full ROM Tragus to wall test: 8 cm Shoulders: Full ROM, no tenderness or swelling Elbows:Full ROM, no tenderness or swelling Wrist:Full ROM, no tenderness or swelling Hand:Full ROM, no tenderness or swelling Heberden and Taina's Lower back:Full ROM Modified Christina's 4 cm. Hip:Full ROM Knee:Full ROM, no tenderness or swelling Ankles: Full ROM, no tenderness or swelling Feet: no swelling. Laboratory testing: Component Latest Ref Rng & Units 10/08/2021 Result Summary SEE NOTE Result SEE NOTE Interpretation SEE NOTE Specimen WB Whole Blood Source Not Reported Method SEE NOTE Released by Neema Cabrera, Ph.D. C-Reactive Protein <10.0 mg/L 21.9 (H) Sed. Rate Westergren 0 - 20 mm/hr 2 25OH Vitamin D Tot 30 - 100 ng/mL 44 Vitamin B-12 211 - 911 pg/mL 1,054 (H) TSH 0.47 - 4.68 mIU/L 1.42 Imaging: XR entire spine 10/2021: ?? FINDINGS: Vertebrae: Narrowed C2-C3 and C3-C4 cervical interspaces with endplate osteophyte formation. Minimal endplate osteophyte formation in the thoracic spine, best demonstrated on the frontal view. Slight thoracic curve, convex to the left at approximately 3 degrees. Ankylosis of the sacroiliac joints. Soft tissues: Normal. ?? IMPRESSION 1. Minimal endplate osteophyte formation in the cervical spine and thoracic spine 2. Ankylosis of the sacroiliac joints. ?? RAPID3 SCORES AND INTERPRETATION 11/06/2020 10/08/2021 07/05/2022 Functional Status 2.3 2.7 3.3 Pain Tolerance 7 6 7 Global Estimate 6 4 5.5 RAPID3 15.3 12.7 15.8 Interpretation High High High Problem List: Patient Active Problem List Diagnosis ??? Hypertensive disorder ??? Cobalamin deficiency ??? Ankylosing spondylitis ([facility]) Assessment Plan: History of ARGELIA/Axial spondyloarthritis No synovitis at this visit. Latest MR elbow, done outside hospital suggested enthesitis, however, this is area is not particularly painful today (does not stand out). I was not able to review images as done outside. I will not change his therapy at present, as his pain is mostly mechanical and central. - C REACTIVE PROTEIN; Future - SED RATE; Future - COMPREHENSIVE METABOLIC PANEL (CMP); Future - COMPLETE BLOOD COUNT AND DIFFERENTIAL; Future We will plan for repeat x rays in the fall to ensure no radiographic progression He will remain on etanercept and SSZ He will stop naproxen and switch to celecoxib, given gastrointestinal pain. Should he develop prominent enthesis symptoms, could consider changing mode of action. Fibromyalgia We discussed his central pain syndrome. Discussed the importance of PT, but since I have recommended it on multiple occasions and he bellamy snot feel he is ready to go, will stop recommending it. Did not tolerate pregabalin. Will attempt a trial of milnacipran. Low dose, can be uptitrated by PCP Osteoarthritis involving multiple joints. As above. Epigastric pain. Concern is for NSAID induced peptic ulcer disease. Advised him to discuss with his PCP pursuing an endoscopy. Plan: As outlined in patient's instructions Patient Instructions Labs today Stop naproxen, start celebrex instead Start Savella in 3 weeks. Continue Enbrel Follow up with Sleep medicnie Follow up with PCP about stomach pain, continue dexilant Follow up with me in 4 months, we will do spine x rays then. Riri Seymour MD I spent a total of 40 minutes on the date of this encounter meeting with the patient and reviewing documentation/coordinating care as described in the above note. No procedures were performed at the time of the visit. Riri Seymour MD Department of Rheumatology Attending Physician Pager: [phone] documented in this encounter Plan of Treatment Upcoming Encounters Date Type Department Care Team (Late st Contact Info) Description 01/17/2024 9:00 EST Office Visit [facility] Rheumatology & Immunology [address] [address] Butch Blair NP [address] [place] [phone] 07/26/2024 9:00 EDT Office Visit [facility] Rheumatology & Immunology [address] [address] Riri Seymour MD [address] [place] [phone] documented as of this encounter Results * COMPLETE BLOOD COUNT AND DIFFERENTIAL (07/05/2022 11:41 EDT) WBC 4.40 4.00 - 10.40 K/cmm 07/05/2022 12:07 EDT [facility] RBC 4.90 4.36 - 5.78 M/cmm 07/05/2022 12:07 EDT [facility] Hemoglobin 15.6 13.8 - 17.3 gm/dL 07/05/2022 12:07 EDT [facility] HCT 44.1 39.5 - 50.2 % 07/05/2022 12:07 EDT [facility] MCV 90 81 - 95 fl 07/05/2022 12:07 EDT [facility] MCH 31.8 27.6 - 33.0 pg 07/05/2022 12:07 EDT [facility] MCHC 35.4 32.8 - 36.4 gm/dL 07/05/2022 12:07 [facility] RDW-CV 12.2 <14.2 % 07/05/2022 12:07 [facility] RDW-SD 40.4 <46.0 fl 07/05/2022 12:07 [facility] PLT 178 141 - 377 K/cmm 07/05/2022 12:07 [facility] MPV 11.2 9.5 - 12.7 fl 07/05/2022 12:07 [facility] % Neutrophils 60.0 % 07/05/2022 12:07 [facility] % Lymphocytes 31.4 % 07/05/2022 12:07 [facility] % Monocytes 6.6 % 07/05/2022 12:07 [facility] % Eosinophils 1.1 % 07/05/2022 12:07 [facility] % Basophils 0.7 % 07/05/2022 12:07 [facility] % Immature Grans 0.2 % 07/06/19 12:07 [facility] Absolute Neutrophils 2.64 2.20 - 8.85 K/cmm 07/05/2022 12:07 [facility] Absolute Lymphocytes 1.38 1.09 - 3.30 K/cmm 07/05/2022 12:07 [facility] Absolute Monocytes 0.29 0.10 - 0.80 K/cmm 07/05/2022 12:07 [facility] Absolute Eosinophils 0.05 0.03 - 0.61 K/cmm 07/05/2022 12:07 [facility] ABS Basophils 0.03 0.01 - 0.11 K/cmm 07/05/2022 12:07 [facility] Absolute Immature Grans 0.01 0.00 - 0.06 K/cmm 07/05/2022 12:07 [facility] Type of Differential: Auto 07/05/2022 12:07 [facility] Blood VENOUS BLOOD / Unknown Venipuncture / Unknown 07/05/2022 11:41 EDT 07/05/2022 11:56 EDT Riri Seymour MD PACKAGES & DNA P ZULYE ORDERABLES [facility] [address] [place] [address] * COMPREHENSIVE METABOLIC PANEL (CMP) (07/05/2022 11:41 EDT) Sodium 142 136 - 145 mmol/L 07/05/2022 12:36 T [facility] Potassium 4.3 3.5 - 5.0 mmol/L 07/05/2022 12:36 [facility] Chloride 103 96 - 110 mmol/L 07/05/2022 12:36 [facility] CO2 Total 32 22 - 32 mmol/L 07/05/2022 12:36 [facility] Glucose 98 70 - 100 mg/dL 07/05/2022 12:36 [facility] BUN 16 10 - 26 mg/dL 07/05/2022 12:36 [facility] Creatinine 1.17 0.66 - 1.25 mg/dL 07/05/2022 12:36 [facility] eGFR 71 >60 mL/min/1.7 3m2 07/05/2022 12:36 [facility] Total Protein 7.8 6.3 - 8.2 g/dL 07/05/2022 12:36 [facility] Albumin 4.5 3.4 - 4.9 g/dL 07/05/2022 12:36 [facility] Alkaline Phosphatase 89 38 - 126 U/L 07/05/2022 12:36 [facility] AST 36 15 - 46 U/L 07/05/2022 12:36 [facility] ALT 47 <50 U/L 07/05/2022 12:36 [facility] Bilirubin, Total 0.7 <1.4 mg/dL 07/06/19 12:36 EDT [facility] Calcium 9.3 8.5 - 10.5 mg/dL 07/05/2022 12:36 EDT [facility] Albumin/Globulin Ratio 1.4 1.0 - 2.5 07/05/2022 12:36 EDT [facility] Anion Gap 7 5 - 14 07/05/2022 12:36 EDT [facility] Blood VENOUS BLOOD / Unknown Venipuncture / Unknown 07/05/2022 11:41 EDT 07/05/2022 11:59 EDT Riri Seymour MD CHEMISTRY & BLOO D GAS ORDERABLES Performing Organization Address City/[facility]/ZIP Co de Phone Number [facility] [address] [place] [address] * SED RATE (07/05/2022 11:41 EDT) Sed Rate 2 0 - 20 mm/hr 07/05/2022 13:16 EDT [facility] Blood VENOUS BLOOD / Unknown Venipuncture / Unknown 07/05/2022 11:41 EDT 07/05/2022 11:56 EDT Riri Seymour MD HEMATOLOGY & PF4 ORDERABLES Performing Organization Address City/[facility]/ZIP Co de Phone Number [facility] [address] [place] [address] * C REACTIVE PROTEIN (07/05/2022 11:41 EDT) C-Reactive Protein <7.0 <10.0 mg/L 07/05/2022 12:36 EDT [facility] Blood VENOUS BLOOD / Unknown Venipuncture / Unknown 07/05/2022 11:41 EDT 07/05/2022 11:59 EDT Riri Seymour MD CHEMISTRY & BLOO D GAS ORDERABLES Performing Organization Address City/[facility]/ZIP Co de Phone Number [facility] [address] [place] [phone] documented in this encounter Visit Diagnoses Diagnosis Fibromyalgia- Primary Mylagia and myositis, unspecified 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 07/05/2022 documented as of this encounter Care Teams Drop Wire Aliner Relationship Specialty Start Date End Date Maureen Lua NP [address] [place] [id number] PCP - General 11/06/20 documented as of this encounter
--- OUTSIDE RECORDS SUMMARY | 2023-11-02 04:05 | XMS_ITS | Encounter Summary ---
[place] [address] Care Team Providers Care Channeling Machine Operator Name Role Phone Maureen Lua APRN Primary Care Provider [phone] Encounter Details Date Type Department Care Team (Late st Contact Info) Description 11/01/2018 Specialty [place] [phone] Maria C Magallanes [facility] Social History Tobacco Use Types Packs/Day Years Used Date Smoking Tobacco: Never Smokeless Tobacco: Never Sex and Gender Information Value Date Recorded Sex Assigned at Not on file Gender Identity Not on file Sexual Orientation Not on file documented as of this encounter Progress Notes * Maria C Magallanes RPH - 11/01/2018 10:19 AM EDT Clinical Management Plan: [facility] Specialty Consult, [facility] Specialty Services Offered ?? Specialty Pharmacy Consultation; Maria C Magallanes [facility] (CMM) Erasto Chapman Mr. Erasto Chapman is a 58 y.o. (1960) male who was seen in clinic for a brief review of specialty therapy, Cosentyx. The patient had no questions, concerns, or troublesome side effects to report to me during our visit. The patient has been using biologics for years with no complications. Patient may be switching from Cosentyx to Enbrel based on imaging and provider assessment. Patient has used Enbrel in the past for over 10 years and did not have any questions or concerns. ?? The patient??was also made aware that??they are eligible to participate in the [facility] Specialty Clinical Management Program. Services in this program include prior authorization and copay assistance, monthly refill reminders, routine pharmacist consults, and 27/09 pharmacist support during therapy.??The patient??is filling Cosentyx with [facility], and declines to enroll today because he has a 2 month supply of Cosentyx on hand at home. If patient ends up being switched to Enbrel, we will reach out to him at that time. ?? The patient??was given [facility] Pharmacy contact information if they decide they would like toenroll??in the future.??The patient??was also encouraged to reach out to the pharmacy with any specialty medication-related questions or concerns, or any issues with insurance authorization, current pharmacy services, or copay assistance.? Maria C Magallanes RPH 11/01/18 10:20 AM documented in this encounter Plan of Treatment Not on file documented as of this encounter Visit Diagnoses Not on filedocumented in this encounter Care Teams Channeling Machine Operator Relationship Specialty Start Date End Date Maureen Lua APRN [address] [place] [address] PCP - General Internal Medicine 08/18/18 documented as of this encounter
--- OUTSIDE RECORDS SUMMARY | 2023-11-02 04:05 | XMS_ITS | Encounter Summary ---
Author Organization [facility] Address [address] [place] [address] Care Team Providers Care Balancer Scale Name Role Phone Grace Luatom García IT OPERATIONS SPECIALIST Primary Care Provider [phone] Encounter Details Date Type Department Care Team (Late st Contact Info) Description 07/05/2022 11:30 EDT Phlebotomy Only [facility] ED Center 2 Phlebotomy [address] [place] [address] Head Of Product, Acc Phlebotomy Fibromyalgia; Spondyloarthritis Social History Tobacco Use Types Packs/Day [...] Yes 08/29/2020 documented as of this encounter Plan of Treatment Upcoming Encounters Date Type Department Care Team (Late st Contact Info) Description 01/17/2024 9:00 EST Office Visit [facility] Rheumatology & Immunology - [facility] [address], [place] [id number] Butch Blair NP 111 [facility] [address] [place] [address] 07/26/2024 9:00 EDT Office Visit [facility] Rheumatology & Immunology - [address] [address] Riri Seymour MD [address] [address] documented as of this encounter Procedures Procedure Name Priority Date/Time Associated Diagnosis Comments SED RATE Routine 07/05/2022 11:41 EDT Fibromyalgia Spondyloarthritis COMPLETE BLOOD COUNT AND DIFFERENTIAL Routine 07/05/2022 11:41 EDT Fibromyalgia Spondyloarthritis C REACTIVE PROTEIN Routine 07/05/2022 11 :41 EDT Fibromyalgia Spondyloarthritis COMPREHENSIVE METABOLIC PANEL (CMP) Routine 07/05/2022 11:41 EDT Fibromyalgia Spondyloarthritis documented in this encounter Results * COMPLETE BLOOD COUNT AND DIFFERENTIAL (07/05/2022 11:41 EDT) WBC 4.40 4.00 - 10.40 K/cmm 07/05/2022 12:07 EDT [facility] RBC 4.90 4.36 - 5.78 M/cmm 07/05/2022 12:07 EDT [facility] Hemoglobin 15.6 13.8 - 17.3 gm/dL 07/05/2022 12:07 EDT [facility] HCT 44.1 39.5 - 50.2 % 07/05/2022 12:07 EDT [facility] MCV 90 81 - 95 fl 07/05/2022 12:07 EDT [facility] MCH 31.8 27.6 - 33.0 pg 07/05/2022 12:07 [facility] MCHC 35.4 32.8 - 36.4 gm/dL 07/05/2022 12:07 [facility] RDW-CV 12.2 <14.2 % 07/05/2022 12:07 [facility] RDW-SD 40.4 <46.0 fl 07/05/2022 12:07 [facility] PLT 178 141 - 377 K/cmm 07/05/2022 12:07 [facility] MPV 11.2 9.5 - 12.7 fl 07/05/2022 12:07 [facility] % Neutrophils 60.0 % 07/05/2022 12:07 [facility] % Lymphocytes 31.4 % 07/05/2022 12:07 [facility] % Monocytes 6.6 % 07/05/2022 12:07 [facility] % Eosinophils 1.1 % 07/05/2022 12:07 [facility] % Basophils 0.7 % 07/05/2022 12:07 [facility] % Immature Grans 0.2 % 07/06/19 12:07 [facility] Absolute Neutrophils 2.64 2.20 - 8.85 K/cmm 07/05/2022 12:07 [facility] Absolute Lymphocytes 1.38 1.09 - 3.30 K/cmm 07/05/2022 12:07 [facility] Absolute Monocytes 0.29 0.10 - 0.80 K/cmm 07/05/2022 12:07 [facility] Absolute Eosinophils 0.05 0.03 - 0.61 K/cmm 07/05/2022 12:07 [facility] ABS Basophils 0.03 0.01 - 0.11 K/cmm 07/05/2022 12:07 [facility] Absolute Immature Grans 0.01 0.00 - 0.06 K/cmm 07/05/2022 12:07 EDT [facility] Type of Differential: Auto 07/05/2022 12:07 [facility] Blood VENOUS BLOOD / Unknown Venipuncture / Unknown 07/05/2022 11:41 EDT 07/05/2022 11:56 EDT Riri Seymour MD PACKAGES & DNA P GORGE ORDERABLES [facility] [address] [place] [address] * COMPREHENSIVE METABOLIC PANEL (CMP) (07/05/2022 11:41 EDT) Sodium 142 136 - 145 mmol/L 07/05/2022 12:36 [facility] Potassium 4.3 3.5 - 5.0 mmol/L 07/05/2022 12:36 [facility] Chloride 103 96 - 110 mmol/L 07/05/2022 12:36 [facility] CO2 Total 32 22 - 32 mmol/L 07/05/2022 12:36 [facility] Glucose 98 70 - 100 mg/dL 07/05/2022 12:36 [facility] BUN 16 10 - 26 mg/dL 07/05/2022 12:36 [facility] Creatinine 1.17 0.66 - 1.25 mg/dL 07/05/2022 12:36 [facility] eGFR 71 >60 mL/min/1.7 3m2 07/05/2022 12:36 [facility] Total Protein 7.8 6.3 - 8.2 g/dL 07/05/2022 12:36 [facility] Albumin 4.5 3.4 - 4.9 g/dL 07/05/2022 12:36 [facility] Alkaline Phosphatase 89 38 - 126 U/L 07/05/2022 12:36 [facility] AST 36 15 - 46 U/L 07/05/2022 12:36 [facility] ALT 47 <50 U/L 07/05/2022 12:36 EDT [facility] Bilirubin, Total 0.7 <1.4 mg/dL 07/06/19 12:36 EDT [facility] Calcium 9.3 8.5 - 10.5 mg/dL 07/05/2022 12:36 EDT [facility] Albumin/Globulin Ratio 1.4 1.0 - 2.5 07/05/2022 12:36 EDT [facility] Anion Gap 7 5 - 14 07/05/2022 12:36 EDT [facility] Blood VENOUS BLOOD / Unknown Venipuncture / Unknown 07/05/2022 11:41 EDT 07/05/2022 11:59 EDT Riri Seymour MD CHEMISTRY & BLOO D GAS ORDERABLES Performing Organization Address City/[facility]/ZIP Co de Phone Number [facility] [address] [place] [address] * SED RATE (07/05/2022 11:41 EDT) Sed Rate 2 0 - 20 mm/hr 07/05/2022 13:16 EDT [facility] Blood VENOUS BLOOD / Unknown Venipuncture / Unknown 07/05/2022 11:41 EDT 07/05/2022 11:56 EDT Riri Seymour MD HEMATOLOGY & PF4 ORDERABLES Performing Organization Address City/[facility]/ZIP Co de Phone Number [facility] [address] [place] [address] * C REACTIVE PROTEIN (07/05/2022 11:41 EDT) C-Reactive Protein <7.0 <10.0 mg/L 07/05/2022 12:36 EDT [facility] Blood VENOUS BLOOD / Unknown Venipuncture / Unknown 07/05/2022 11:41 EDT 07/05/2022 11:59 EDT Riri Seymour MD CHEMISTRY & BLOO D GAS ORDERABLES [facility] [address] [place] [address] documented in this encounter Visit Diagnoses Diagnosis Fibromyalgia Mylagia and myositis, unspecified Spondyloarthritis Spondylosis of unspecified site without mention of myelopathy documented in this encounter Care Teams Balancer Scale Relationship Specialty Start Date End Date Maureen Lua NP [address] [place] [id number] PCP - General 11/06/20 documented as of this encounter
--- OUTSIDE RECORDS SUMMARY | 2023-11-02 04:05 | XMS_ITS | Encounter Summary ---
Author Organization [facility] Address [facility] [place] [address] Care Team Providers Care Pie Crimping Machine Operator Name Role Phone Maureen Lua APRN Primary Care Provider [phone] Reason for Referral * Physical Therapy (Routine) - Specialty Diagnoses / Procedures Referred By Contac t Referred To Contact Diagnoses Ankylosing spondylitis, unspecified site of spine Neck pain Midline thoracic back pain, unspecified chronicity Orquidea Patrick APRN [facility] [place] [address] Referral ID Status Reason Start Date Expiration Date V isits Requested Visits Authorized [id number] Evaluate and Treat 09/01/2018 02/28/2019 12 12 Reason for Visit * Reason Comments Pain Management Back Pain * Consultation (Routine) - Closed Specialty Diagnoses / Procedures Referred By Contac t Referred To Contact Pain Management Diagnoses Ankylosing spondylitis, unspecified site of spine but with mecqhniocal back pain Ney Hickman MD [facility] [place] [place] [address] [facility] [facility] [place] [address] Referral ID Status Reason Start Date Expiration Date V isits Requested Visits Authorized [id number] Closed Consult, Test & Treat 08/18/2018 08/18/2019 1 1 Encounter Details Date Type Department Care Team (Late st Contact Info) Description 09/01/2018 9:00 AM EDT Office Visit Pain Management at [facility] [place] [address] Orquidea Patrick APRN [facility] [place] [address] Ankylosing spondylitis, unspecified site of spine; Neck pain; Midline thoracic back pain, unspecified chronicity Social History Tobacco Use Types Packs/Day Years Used Date Smoking Tobacco: Never Smokeless Tobacco: Never Sex and Gender Information Value Date Recorded Sex Assigned at Not on file Gender Identity Not on file Sexual Orientation Not on file documented as of this encounter Last Filed Vital Signs Vital Sign Reading Time Taken Comments Blood Pressure 119/63 09/01/2018 8:45 AM EDT Pulse 51 09/01/2018 8:45 AM EDT Temperature - - Respiratory Rate - - Oxygen Saturation 100% 09/01/2018 8:45 AM EDT Inhaled Oxygen Concentration - - Weight 61.2 kg (135 lb) 09/01/2018 8:45 AM EDT Height 167.6 cm (5' 6) 09/01/2018 8:45 AM EDT Body Mass Index 21.79 09/01/2018 8:45 AM EDT documented in this encounter Patient Instructions * Patient Instructions* Orquidea Patrick APRN - 09/01/2018 9:00 AM EDT 1) Refer to [facility] physical therapy 2) Work on creating home exercise program and doing home exercises regularly 3) Consider low dose naltrexone 4) Follow-up to discuss interventional options documented in this encounter Progress Notes * Orquidea Patrick APRN - 09/01/2018 9:00 AM EDT Images from the original note were not included. PAIN CLINIC CONSULTATION Date of Consultation: September 01, 2018 I am seeing Mr. Chapman at the request of Ney Hickman for my opinion and recommendations regarding back pain. Chief Complaint: Chief Complaint Patient presents with ??? Pain Management ??? Back Pain HPI: Subjective Erasto Chapman is a 57 y.o. male who presents today with his , Juanis, for consult for pain management evaluation for mechanical back pain in the setting of ankylosing spondylitis. Mr. Chapman has been evaluated by Dr. Hickman, rheumatology, for ankylosing spondylitis and was referred to this clinic to discuss treatment options for his back pain. 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 He has aching burning pain in his back in his 20s and he has continued to have pain in hisback and feels like this is getting stiffer. He states the areas that give him the the most pain is his mid back and his neck. He states at times it is hard to turn his neck side to side from the pain. Onset: gradual onset Since onset pain is unchanged Location: midline thoracic spine, midline neck pain Neck pain radiates to bilateral head. Duration: > 10 years Characteristics: aching and burning Timing: intermittent pain, notes pain is worse with weather changes and some activities Severity: 4/10 now Average pain in past week: 6/10 Best pain in the past week: 3/10 Worst pain in the past week: 7/10 Aggravating factors: twisting, bending, lifting, prolonged sitting (worse on hard surfaces), weather changes. Relieving factors: Embrel helped a lot in the past, Cesentyx - helping some but is not sure if thisis helping as much as Embrel. Hydrocodone/apap - states that he takes 1/2 tablet 2-3 times a day as needed- he finds that this gives him good benefit in his pain. He states that he has a lot of pain in his hands and when he is doing activities that require fine motor use for prolonged periods the pain in his hands radiates up his arms- hydrocodone/apap has been helping a lot with this pain. myD-H Pain 09/01/2018 VR12 - Physical Summary Component 28.63 VR12 - Mental Component Summary 37.88 MODEMS Expectation 18.75 Family History of Substance Abuse (Male) 0 Personal History of Substance Abuse(Male) 0 Age 0 History of Preadolescent sexual abuse(Male) 0 Psychological Disease 0 ORT Total Scores (Male) 0 BPI Severity Score 6.75 BPI Interference Score 5.85 TREATMENTS/INTERVENTIONS CURRENT BENEFIT TRIALED DATE BENEFIT NOT TRIALED Physical Therapy Yes Home Exercises Lots of home stretching Yes Chiropractic No Massage No Traction No TENs No Acupuncture No CBT / Meditation Yoga/Kiran Chi/ Movement Therapy No MEDICATIONS: CURRENT HELPFUL? TRIALED HELPFUL? NOT TRIALED OTC Tylenol as needed - has not been using this that much. 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 Marital status: Spouse name: Not on file ??? Number of children: Not on file ??? Years of education: Not on file ??? Highest education level: Not on file Occupational History ??? Not on file Social Needs ??? Financial resource strain: Not on file ??? Food insecurity: Worry: Not on file Inability: Not on file ??? Transportation needs: Medical: Not on file Non-medical: Not on file Tobacco Use ??? Smoking status: Never Smoker ??? Smokeless tobacco: Never Used Substance and Sexual Activity ??? Alcohol use: Not on file ??? Drug use: Not on file ??? Sexual activity: Not on file Lifestyle ??? Physical activity: Days per week: Not on file Minutes per session: Not on file ??? Stress: Not on file Relationships ??? Social connections: Talks on phone: Not on file Gets together: Not on file Attends hoahaoism service: Not on file Active member of club or organization: Not on file Attends meetings of clubs or organizations: Not on file Relationship status: Not on file ??? Intimate partner violence: Fear of current or ex partner: Not on file Emotionally abused: Not on file Physically abused: Not on file Forced sexual activity: Not on file Other Topics Concern ??? Not on file Social History Narrative ??? Not on file Aberrant behaviors/Risk Assessment: Tobacco use: none Alcohol use: none in the past 15 years Other drugs: none OPIOID RISK ASSESSMENT OPIOID RISK TOOL Female Male 1. Family history of Substance Abuse Alcohol [] 1 [] 3 Illegal Drugs [] 2 [] 3 Prescription Drugs [] 4 [] 4 2. Personal History of Substance Abuse Alcohol [] 3 [] 3 Illegal Drugs [] 4 [] 4 Prescription Drugs [] 5 [] 5 3. Age (sid box if 16-45) [] 1 [] 1 4. History of Preadolescent Sexual Abuse [] 3 [] 0 5. Psychological Disease Attention Deficit Disorder, Obsessive Compulsive D/o, Bipolar, Schizophrenia [] 2 [] 2 Depression [] 1 [] 1 TOTAL: 0 Comments about ORT in relation to this patient: Opioid Risk Category: low risk 0-3 Total Score Risk Category: 0-3 = Low Risk 4-7 = Moderate Risk > 8 = High Risk FAMILY HISTORY: No family history on file. PAST MEDICAL HISTORY: No past medical history on file. PAST SURGICAL HISTORY: No past surgical history on file. ALLERGIES: Patient has no known allergies. MEDICATIONS: Medications 09/01/18 0904 Medication Sig Taking? cholecalciferol, Vitamin D3, (CHOLECALCIFEROL, VITAMIN D3,) 2,000 unit Capsule Take by mouth. Yes aspirin 81 mg Tablet, Chewable Take 81 mg by mouth Daily. Yes cyanocobalamin, vitamin B-12, 1,000 mcg Tablet Take 1,000 mcg by mouth Daily. Yes HYDROcodone-acetaminophen (NORCO) 5-325 mg Tablet Take 1 tablet by mouth Every 4 hours as needed. Yes indomethacin (INDOCIN SR) 75 mg Capsule, Sustained Release daily. Yes COSENTYX PEN, 2 PENS, 150 mg/mL Pen Injector 2 PENS ONCE A MONTH Yes zolpidem (AMBIEN) 5 mg Tablet TAKE ONE TABLET BY MOUTH AT BEDTIME NEEDED FOR INSOMNIA Yes lisinopril (PRINIVIL;ZESTRIL) 5 mg Tablet Take 5 mg by mouth daily. Yes dexlansoprazole (DEXILANT) 60 mg Cap, Delayed Rel., Multiphasic Take 60 mg by mouth daily. Yes simvastatin (ZOCOR) 40 mg Tablet Take 40 mg by mouth nightly. Yes ondansetron (ZOFRAN-ODT) 4 mg Tablet, Rapid Dissolve as needed. ROS: Review of Systems Constitutional: Negative for chills, fever and unexpected weight change. HENT: Negative for ear pain. Eyes: Negative for pain. Cardiovascular: Negative for chest pain. Gastrointestinal: No bowel incontinence Genitourinary: No bladder incontinence Musculoskeletal: Positive for arthralgias. As per HPI Skin: Negative. Allergic/Immunologic: Negative. Neurological: Negative for weakness and numbness. PHYSICAL EXAM: BP 119/63 Pulse 51 Ht 167.6 cm (5' 6) Wt 61.2 kg (135 lb) SpO2 100% BMI 21.79 kg/m?? Physical Exam Constitutional: He is oriented to person, place, and time. He appears well- developed and well-nourished. No distress. HENT: Head: Normocephalic. Eyes: Conjunctivae are normal. Right eye exhibits no discharge. Left eye exhibits no discharge. Neck: No post-operative scarring, shoulders symmetrical. Good ROM of the neck. Pain with facet loading bilateral. Negative Spurling's maneuver. Cardiovascular: Intact distal pulses. Pulmonary/Chest: Effort normal. No respiratory distress. Musculoskeletal: Gait- antalgic left. No lumbar post-operative scarring. Post-operative scarring left foot. Lumbar ROM with pain with lateral flexion elizabeth. Positive Kemps' maneuver elizabeth. Negative straight leg raise. Neurological: He is alert and oriented to person, place, and time. RADIOLOGIC DATA: 2 Views of cervical on films in system, will need the remaining 3 views or additional cervical imaging if patient is to have cervical interventional options will need remaining views. ASSESSMENT: Assessment Encounter Diagnoses Name Primary? Ankylosing spondylitis, unspecified site of spine ??? Neck pain ??? Midline thoracic back pain, unspecified chronicity Pleasant 57 yo male with long history of juvenile arthritis and then diagnosis of ankylosing spondylitis. He finds that his pain improves when he is on biologics and is working closely with rheumatology. Neck pain likely multifactorial with a large component of facetagenic pain. We discussed treatment options to include interventional options, physical medicine, home exercise program and medication management. Referred to [facility] therapy consultation and treatment. Consider cervical medial branch blocks. Thoracic back pain due to degenerative disease, consider medial branch blocks versus facet injections. Referred to [facility] therapy consultation and treatment. Encourage patient to create a home exercise program and perform regularly. Low dose naltrexone may be an option for him. When used at low doses, naltrexone functions as a microglial attenuating therapy that decreases inflammation within the central nervous system and improves chronic pain without causing habituation and dependence. Charlie Stark.; Clark Fulton; Cait Mac. The use of low-dose naltrexone (LDN) as a novel anti-inflammatory treatment for chronic pain. Clin. Rheumatol. 2014, 33, 451-459. Morgan Rodriguez.; Dvaid Diggs. Low-Dose Naltrexone (LDN)-Review of Therapeutic Utilization. Med. Sci. 2018, 6, 82. Patient aware that he will need to be off of hydrocodone prior to starting low dose naltrexone. He will consider and call the office if he wishes to start this treatment option. Can call in to a compounding pharmacy in between visits. He will schedule follow-up after he has started physical therapy to discuss interventional options. PLAN: 1) Refer to [facility] 2) Encouraged patient to create home exercise program and encouraged regular exercise 3) Discussed low dose naltrexone 4) Consider cervical medial branch blocks 5) Consider thoracic medial branch blocks versus facet injections 6) Follow-up to discuss interventions and additional options such as low dose naltrexone Erasto Chapman had the opportunity to ask questions and indicated that all questions were answeredto his satisfaction. Thank you for the opportunity to participate in Erasto Chapman's care. Thank you for this referral, Ney Hickman MD [facility] [place] [address]. Orquidea Patrick, MSN, LOMBARDI DEVELOPER- C, FOUNDER AND CHIEF TECHNICAL OFFICER Nurse Practitioner [facility] [address] [phone] / [facility] documented in this encounter Plan of Treatment Scheduled Referrals Name Type Priority Associated Diagnoses Orde r Schedule Referral to Physical Therapy Outpatient Referral Routine Ankylosing spondylitis, unspecified site of spine Neck pain Midline thoracic back pain, unspecified chronicity Ordered: 09/01/2018 documented as of this encounter Visit Diagnoses Diagnosis Ankylosing spondylitis, unspecified site of spine Neck pain Cervicalgia Midline thoracic back pain, unspecified chronicity documented in this encounter Care Teams Pie Crimping Machine Operator Relationship Specialty Start Date End Date Maureen Lua, FOUNDER AND CHIEF TECHNICAL OFFICER [address] [place] [address] PCP - General Internal Medicine 08/18/18 documented as of this encounter
--- OUTSIDE RECORDS SUMMARY | 2023-11-02 04:05 | XMS_ITS | Encounter Summary ---
Author Organization [place] [address] Care Team Providers Care Assistant Store Manager Trainee Name Role Phone Olaf Sahni MD Primary Care Provider + Reason for Visit * Reason Comments Hematuria Encounter Details Date Type Department Care Team (Latest Contact Info) Description 07/26/2014 1:20 PM EDT Procedure [place] [address] Cj Napier MD [facility] [place] [address] Hematuria, unspecified (Primary Dx) Social History Tobacco Use Types Packs/Day Years Used Date Smoking Tobacco: Never Smokeless Tobacco: Never Sex and Gender Information Value Date Recorded Sex Assigned at Not on file Gender Identity Not on file Sexual Orientation Not on file documented as of this encounter Patient Instructions * Patient Instructions* Lacey Farrell, LOLIS - 07/26/2014 1:18 PM EDT Instructions following Cystoscopy Activity: As tolerated by your comfort level. Fluids: You should increase your water today. Avoid coffee, tea and cola. You do not need to ounces of water today. Urination: You will likely have a small amount of blood in your urine for the next several days. This is normal; however, if you are passing large amounts of blood clots or are unable to void please call our office at [phone] before 5PM or [phone] after hours. Please call if: * you have copious blood in your urine * fevers greater than 101.3 F * you are unable to void The number for questions is [phone] before 5 PM weekdays and [phone] after 5 PM and weekends. Follow-up: 6 months documented in this encounter Progress Notes * Cj Napier MD - 07/26/2014 1:35 PM EDT Procedure Note Procedure: Flexible Cystoscopy Surgeon: Cj Napier MD Preoperative Diagnosis: Microhematuria Post Operative Diagnosis: Normal cystourethroscopy Complications: None Procedure: Urinalysis revealed no evidence of an active urinary tract infection. After informed consent was obtained and the external genitalia appropriately had been cleaned and draped lidocaine was instilled into the urethra to achieve topical anaesthesia. The flexible telescope was inserted into the urethra and advanced into the bladder under direct vision. The bladder was systematically inspected through 360 degrees . Anterior urethroscopy was normal. The prostatic fossa was normal. The ureteral orifices were in normal position and effluxed clear urine. The bladder was normal. There were no bladder, tumors mucosal abnormalities or bladder stones. The cystoscope was removed. The patient tolerated the procedure without difficulty. There were no complications. Impression and plan We'll send urine for urinalysis today and cytology and we'll obtain ultrasound/ CT results from [facility]. cystoscopy is normal today and will follow up in 6 months or sooner as needed Cj Napier MD documented in this encounter Plan of Treatment Scheduled Orders Name Type Priority Associated Diagnoses Orde r Schedule Cystoscopy - Today PROCEDURE Routine Hematuria, unspecified Ordered: 07/26/2014 documented as of this encounter Procedures Procedure Name Priority Date/Time Associated Diagnosis Comments CYTOPATHOLOGY NON-GYNECOLOGICAL Routine 07/26/2014 1:16 PM EDT Hematuria, unspecified documented in this encounter Results * Cytopathology Non-Gynecological (07/26/2014 1:16 PM EDT) AP Specimen 07/26/2014 1:16 PM EDT 07/26/2014 1:16 PM EDT Narrative FILIPE BROOKS - 07/26/2014 1:16 PM EDT Specimen requisition ordered. ??Separate Pathology report to follow Cj Napier MD PATHOLOGY/ CYTOLOGY ORDERABLES FILIPE BROOKS documented in this encounter Visit Diagnoses Diagnosis Hematuria, unspecified- Primary documented in this encounter Care Teams Assistant Store Manager Trainee Relationship Specialty Start Date End Date Olaf Sahni MD [address] [facility] [place] [address] PCP - General 01/27/10 12/14/16 documented as of this encounter
--- OUTSIDE RECORDS SUMMARY | 2023-11-02 04:05 | XMS_ITS | Encounter Summary ---
Author Organization [facility] [place] [address] Care Team Providers Care Artist Manager Name Role Phone Maureen Lua APRN Primary Care Provider [phone] Reason for Referral * Diagnostic Test (Routine) - Closed Specialty Diagnoses / Procedures Referred By Contac t Referred To Contact Diagnoses Neck pain Ankylosing spondylitis, unspecified site of spine Procedures MRI Cervical Spine wo Contrast (Generic) Ney Hickman MD [facility] [place] [address] Referral ID Status Reason Start Date Expiration Date V isits Requested Visits Authorized [id number] Closed Specialty Service Requested 01/05/2019 07/04/2019 1 1 * Physical Therapy (Routine) - Specialty Diagnoses / Procedures Referred By Contac t Referred To Contact Diagnoses Inflammatory arthropathy Chronic bilateral low back pain without sciatica Inflammatory back pain Neck pain Chronic midline thoracic back pain Ney Hickman MD [facility] [place] [address] Referral ID Status Reason Start Date Expiration Date V isits Requested Visits Authorized [id number] Evaluate and Treat 01/05/2019 07/04/2019 12 12 Reason for Visit * Reason Comments Follow-up Encounter Details Date Type Department Care Team (Late st Contact Info) Description 01/05/2019 2:00 PM EDT [place] [address] Ney Hickman MD [facility] [place] [address] Neck pain (Primary Dx); Inflammatory arthropathy; Chronic bilateral low back pain without sciatica; Inflammatory back pain; Chronic midline thoracic back pain; Ankylosing spondylitis, unspecified site of spine Social History Tobacco Use Types Packs/Day Years Used Date Smoking Tobacco: Never Smokeless Tobacco: Never Sex and Gender Information Value Date Recorded Sex Assigned at Not on file Gender Identity Not on file Sexual Orientation Not on file documented as of this encounter Last Filed Vital Signs Vital Sign Reading Time Taken Comments Blood Pressure 115/62 01/05/2019 1:46 PM EDT Pulse 52 01/05/2019 1:46 PM EDT Temperature 36.6 ??C (97.9 ??F) 01/05/2019 1:46 PM ED T Respiratory Rate - - Oxygen Saturation 99% 01/05/2019 1:46 PM EDT Inhaled Oxygen Concentration - - Weight 64.6 kg (142 lb 8 oz) 01/05/2019 1:46 PM EDT Height 167.6 cm (5' 6) 01/05/2019 1:46 PM EDT Body Mass Index 23 01/05/2019 1:46 PM EDT documented in this encounter Progress Notes * Ney Hickman MD - 01/05/2019 2:00 PM EDT Rheumatology Follow -U[p Note Rheumatology Hx ?? ankylosing spondylitis ?? Cosentyx 300 mg monthly -like to switch back to Enbrel ?? Previously on Enbrel and Humara ?? Hx of ankylosing spondylitis () ?? [...] pain takes a daily also is on [place].. He has stomach issues with NSAIDs takes his Dexilant after meals does not use NSAIDs with food. I have reviewed the provided records, pertinent records available [place] [facility] [place] with in the medical record and [...] Vicodin which is prescribed by his PCP. He did see the pain doctors who recommended possible injections and trial of PT and possibly L DN. Patient denies Achilles tendonitis, plantar fasciitis, diffuse tendonitis, chest wall pain and eye pain ROS: General (-)fevers, (-)chills, (-)night sweats, (-)wt loss/gain. HEENT (-)head trauma, (-)vision change, (-)tinnitus, (-)epistaxis, [...] Socioeconomic History ??? Marital status: Spouse name: None ??? Number of children: None ??? Years of education: None ??? Highest education level: None Occupational History ??? None Social Needs ??? Financial resource strain: None ??? Food insecurity: Worry: None Inability: None ??? Transportation needs: Medical: None Non-medical: None Tobacco Use ??? Smoking status: Never Smoker ??? Smokeless tobacco: Never Used Substance and Sexual Activity ??? Alcohol use: None ??? Drug use: None ??? Sexual activity: None Lifestyle ??? Physical activity: Days per week: None Minutes per session: None ??? Stress: None Relationships ??? Social connections: Talks on phone: None Gets together: None Attends christianity service: None Active member of club or organization: None Attends meetings of clubs or organizations: None Relationship status: None ??? Intimate partner violence: Fear of current or ex partner: None Emotionally abused: None Physically abused: None Forced sexual activity: None Other Topics Concern ??? None Social History Narrative ??? None Current Outpatient Medications Medication Sig Dispense Refill ??? indomethacin (INDOCIN SR) 75 mg Capsule, Sustained Release Take 1 capsule by mouth daily. 30 capsule 3 ??? cholecalciferol, Vitamin D3, (CHOLECALCIFEROL, VITAMIN D3,) 2,000 unit Capsule Take by mouth. ??? aspirin 81 mg Tablet, Chewable Take 81 mg by mouth Daily. ??? cyanocobalamin, vitamin B-12, 1,000 mcg Tablet Take 1,000 mcg by mouth Daily. ??? HYDROcodone-acetaminophen (NORCO) 5-325 mg Tablet Take 1 tablet by mouth Every 4 hours as needed. ??? COSENTYX PEN, 2 PENS, 150 mg/mL Pen Injector 2 PENS ONCE A MONTH 0 ??? ondansetron (ZOFRAN-ODT) 4 mg Tablet, Rapid [...] to Visit Medication Sig Dispense Refill ??? indomethacin (INDOCIN SR) 75 mg Capsule, Sustained Release Take 1 capsule by mouth daily. 30 capsule 3 ??? cholecalciferol, Vitamin D3, (CHOLECALCIFEROL, VITAMIN D3,) 2,000 unit Capsule Take by mouth. ??? aspirin 81 mg Tablet, Chewable Take 81 mg by mouth Daily. ??? cyanocobalamin, vitamin B-12, 1,000 mcg Tablet Take 1,000 mcg by mouth Daily. ??? HYDROcodone-acetaminophen (NORCO) 5-325 mg Tablet Take 1 tablet by mouth Every 4 hours as needed. ??? COSENTYX PEN, 2 PENS, 150 mg/mL Pen Injector 2 PENS ONCE A MONTH 0 ??? ondansetron (ZOFRAN-ODT) 4 mg Tablet, Rapid [...] visit. No Known Allergies Physical Exam: BP 115/62 (BP Location (NBP): Left arm, Patient Position: Sitting, BP Cuff Sizes: Adult (25-34 cm)) Pulse 52 Temp 36.6 ??C (97.9 ??F) (Oral) Ht 167.6 cm (5' 6) Wt 64.6 kg (142 lb 8 oz) SpO2 99% BMI 23.00 kg/m?? General: NAD HEENT: Mucous membranes are moist, no oral mucosal ulcerations, temporal artery non-palpable Neck: Supple, no lymphadenopathy, full range of motion. Cardiovascular: RR, (-)murmurs, rubs, or gallops. Lungs: Clear to auscultation bilaterally. (-)R/R/W Abdomen: Soft, non tender, non distended, + bowel sounds, no hepatosplenomegaly. Neuro: Alert and oriented x3. Cranial nerves II through XII grossly intact. - Strength 5/5 throughout, -Sensation to light touch is grossly normal throughout. Skin: (-)ulcers, (-)rash \ Vascular: Pulses are equal in all extremities. MSK Back: Non tender over the spine and costovertebral angles bilaterally. (- )Kirsten,, heel to wall within normal limits mika 15 Extremities Shoulders: FROM, non-tender to palpation Elbows:FROM, (-)pain, (-)nodules Wrists: FROM, no swelling, non-tender Hands: No synovitis, no MCP compression tenderness, full claw and fist Hips: Reduced range of motion of the hips Knees: (-)effusions, non-tender ROM Ankles: FROM, non-tender, no swelling limited range of motion feet: no MTP compression tenderness Spine, shoulders, elbows, wrists, fingers, hips, knees and ankles; no active swelling, tenderness or synovitis at any joint. No soft tissue nodules. Assessment, Plan or Recommendation: Erasto Chapman is a 58 y.o. male who presents today with ankylosing spondylitis with hx of ARGELIA andGOUT? Likely patient had Ankylosing spondylitis patient was seen in the pain clinic to discuss PT and possible injections patient continued to PT at home. He feels here is too far for him to do injections here so would like to see the pain clinic closer by patient given referral to a pain clinic and physical therapy by [facility]house. He feels he did best when he [...] Referral to Physical Therapy Outpatient Referral Routine Inflammatory arthropathy Chronic bilateral low back pain without sciatica Inflammatory back pain Neck pain Chronic midline thoracic back pain Ordered: 01/05/2019 documented as of this encounter Results * MRI Cervical Spine [...] contact the number below. Electronically signed by: Jimmie Velazquez [facility]([phone]), at 05/17/2019 11:21 AM Ney Hickman MD IMG MRI ORDERABLES documented in this encounter Visit Diagnoses Diagnosis Neck pain- Primary Cervicalgia Inflammatory arthropathy Arthropathy, unspecified, site unspecified Chronic bilateral low back pain without sciatica Inflammatory back pain Chronic midline thoracic back pain Ankylosing spondylitis, unspecified site of spine Neck pain Cervicalgia Ankylosing spondylitis, unspecified site of spine documented in this encounter Care Teams Artist Manager Relationship Specialty Start Date End Date Maureen Lua, WINDOWS APPLICATION DEVELOPER [address] [place] [address] PCP - General Internal Medicine 08/18/18 documented as of this encounter
--- OUTSIDE RECORDS SUMMARY | 2023-11-02 04:05 | XMS_ITS | Encounter Summary ---
Author Organization [facility] Address [address] [place] [id number] Care Team Providers Care Bulldozer Press Operator Name Role Phone Maureen Lua OFFSET SECOND PRESS OPERATOR Primary Care Provider [phone] Reason for Referral * Laboratory Services (Routine/Next Available) - New Request Specialty Diagnoses / Procedures Referred By Deann t Referred To Contact Diagnoses Ankylosing spondylitis, unspecified site of spine ([facility]) Encounter for long-term (current) use of medications Procedures COMPREHENSIVE METABOLIC PANEL (CMP) Riri Seymour MD [address] [place] [phone] Referral ID Status Reason Start Date Expiration Date V isits Requested Visits Authorized [id number] New Request 08/10/2023 1 1 * Laboratory Services (Routine/Next Available) - New Request Specialty Diagnoses / Procedures Referred By Deann bermudez Referred To Contact Diagnoses Ankylosing spondylitis, unspecified site of spine ([facility]) Encounter for long-term (current) use of medications Procedures COMPLETE BLOOD COUNT AND DIFFERENTIAL Riri Seymour MD [address] [place] [phone] Referral ID Status Reason Start Date Expiration Date V isits Requested Visits Authorized [id number] New Request 08/10/2023 1 1 * Laboratory Services (Routine/Next Available) - New Request Specialty Diagnoses / Procedures Referred By Deann bermudez Referred To Contact Diagnoses Ankylosing spondylitis, unspecified site of spine ([facility]) Encounter for long-term (current) use of medications Procedures SED RATE Riri Seymour MD [address] [place] [phone] Referral ID Status Reason Start Date Expiration Date V isits Requested Visits Authorized [id number] New Request 08/10/2023 1 1 * Laboratory Services (Routine/Next Available) - New Request Specialty Diagnoses / Procedures Referred By Deann bermudez Referred To Contact Diagnoses Ankylosing spondylitis, unspecified site of spine ([facility]) Encounter for long-term (current) use of medications Procedures C REACTIVE PROTEIN Riri Seymour MD [address] [place] [phone] Referral ID Status Reason Start Date Expiration Date V isits Requested Visits Authorized [id number] New Request 08/10/2023 1 1 Reason for Visit * Reason Onset Date Comments Orders (Non Pre-visit) 08/10/2023 Encounter Details Date Type Department Care Team (Late st Contact Info) Description 08/10/2023 Telephone [facility] Rheumatology & Immunology - [address] [phone] Riri Seymour MD [address] [place] [phone] Orders (Non Pre-visit) Social History Tobacco Use Types Packs/Day Years [...] Yes 07/25/2023 documented as of this encounter Miscellaneous Notes * Telephone Encounter - Alec Pelayo RN - 08/10/2023 1315 EDT Spoke with patient and let him know, per Dr. Seymour' note of 07/24, patient is to have his labs drawn one month from 07/24, when last seen and started on sulfasalazine, and 3 months thereafter if labsare normal. Patient would like his labs done at [facility]. Future lab orders faxed to [facility]. * Telephone Encounter - Precious Beltre - 08/10/2023 1302 EDT Patient would like to get labs done at [facility], fax number is [phone]. Please reach out to discuss and follow up with patient when possible. documented in this encounter Plan of Treatment Upcoming Encounters Date Type Department Care Team (Late st Contact Info) Description 01/17/2024 9:00 EST Office Visit [facility] Rheumatology & Immunology - [address] [address] Butch Blair NP [address] [phone] 07/26/2024 9:00 EDT Office Visit [facility] Rheumatology & Immunology - [facility] [address] [place], [place] [address] Riri Seymour MD [address] [phone] Scheduled Orders Name Type Priority Associated Diagnoses Orde r Schedule C REACTIVE PROTEIN Lab Routine Ankylosing spondylitis, unspecified site of spine ([facility]) Encounter for long-term (current) use of medications Expected: 08/10/2023 (Approximate), Expires: 08/09/2024 SED RATE Lab Routine Ankylosing spondylitis, unspecified site of spine ([facility]) Encounter for long-term (current) use of medications Expected: 08/10/2023 (Approximate), Expires: 08/09/2024 COMPLETE BLOOD COUNT AND DIFFERENTIAL Lab Routine Ankylosing spondylitis, unspecified site of spine ([facility]) Encounter for long-term (current) use of medications Expected: 08/10/2023 (Approximate), Expires: 08/09/2024 COMPREHENSIVE METABOLIC PANEL (CMP) Lab Routine Ankylosing spondylitis, unspecified site of spine ([facility]) Encounter for long-term (current) use of medications Expected: 08/10/2023 (Approximate), Expires: 08/09/2024 documented as of this encounter Visit Diagnoses Diagnosis Ankylosing spondylitis, unspecified site of spine ([facility])- Primary Encounter for long-term (current) use of medications Encounter for long-term (current) use of other medications documented in this encounter Care Teams Bulldozer Press Operator Relationship Specialty Start Date End Date Maureen Lua NP [address] [place] [phone] PCP - General 11/06/20 documented as of this encounter
--- OUTSIDE RECORDS SUMMARY | 2023-11-02 04:05 | XMS_ITS | Encounter Summary ---
[place] [address] Care Team Providers Care Entry Level Sales Consultant Name Role Phone Maureen Lua APRN Primary Care Provider Reason for Visit * Reason Onset Date Comments Questions 01/25/2019 Medication Refill 01/25/2019 Encounter Details Date Type Department Care Team (Late st Contact Info) Description 01/25/2019 Refill [place] [address] Deni Duran RN Social History Tobacco Use Types Packs/Day Years Used Date Smoking Tobacco: Never Smokeless Tobacco: Never Sex and Gender Information Value Date Recorded Sex Assigned at Not on file Gender Identity Not on file Sexual Orientation Not on file documented as of this encounter Miscellaneous Notes * Telephone Encounter - Deni Duran RN - 01/29/2019 3:40 PM EST Juanis calls again to request prescription go to [email or web address]. * Telephone Encounter - Deni Duran RN - 01/25/2019 3:31 PM EST Returned call, left message with call back number provided. * Telephone Encounter - Deni Duran RN - 01/25/2019 9:53 AM EST Juanis calls on behalf of patient. Requests lab results and if ok to resume Enbrel. Prescription would go to [facility]. documented in this encounter Plan of Treatment Not on file documented as of this encounter Visit Diagnoses Not on filedocumented in this encounter Care Teams Entry Level Sales Consultant Relationship Specialty Start Date End Date Maureen Lua APRN [address] [place] [address] PCP - General Internal Medicine 08/18/18 documented as of this encounter
--- OUTSIDE RECORDS SUMMARY | 2023-11-02 04:05 | XMS_ITS | Encounter Summary ---
[place] [address] Care Team Providers Care Warehouse Associate Driver Name Role Phone Olaf Sahni MD Primary Care Provider + Encounter Details Date Type Department Care Team (Late st Contact Info) Description 06/27/2014 Orders [place] [address] Amelie Hernandez [facility] [place] [address] Hematuria Social History Tobacco Use Types Packs/Day Years Used Date Smoking Tobacco: Never Assessed Sex and Gender Information Value Date Recorded Sex Assigned at Not on file Gender Identity Not on file Sexual Orientation Not on file documented as of this encounter Plan of Treatment Not on file documented as of this encounter Visit Diagnoses Diagnosis Hematuria Hematuria, unspecified documented in this encounter Care Teams Warehouse Associate Driver Relationship Specialty Start Date End Date Olaf Sahni MD [address] [place] [address] PCP - General 01/27/10 12/14/16 documented as of this encounter
--- OUTSIDE RECORDS SUMMARY | 2023-11-02 04:05 | XMS_ITS | Referral Summary ---
Author Organization [facility] Address [address] [place] [address] Care Team Providers Care Credit Union Teller Name Role Phone Maureen Lua ER MANAGER Primary Care Provider [phone] Encounters Date Type Department Care Team Description 09/27/2023 Refill [facility] Rheumatology Immunology [address] [address] Riri Seymour MD Medications Refill 09/14/2023 Telephone [facility] Immunology [address] [address] Riri Seymour MD Medication Management; Labs Only 08/10/2023 Telephone [facility] Immunology [address] [address] Riri Seymour MD Orders (Non Pre-visit) from Last 3 Months Allergies No known active allergies Medications Medication [...] original. Patient has given permission for [facility] to verbally discuss the following information with Juanis Chapman who has the following relationship to the [...] Problem Noted Date Diagnosed Date Ankylosing spondylitis ([facility]) 09/23/2009 Cobalamin deficiency 09/23/2009 Hypertensive disorder 09/23/2009 Immunizations Name Administration Dates Next Due Influenza (split) 12/05/2012 Social History Tobacco Use Types Packs/Day [...] 8:02 EDT Sexual Orientation Not on file Last Filed [...] Body Mass Index 23.44 07/25/2023 0822 EDT Functional Status Functional Status Response Date of [...] concentrating, remembering, or making decisions? Yes 07/25/2023 Plan of Treatment Upcoming Encounters Date Type Department Care Team (Late st Contact Info) Description 01/17/2024 9:00 EST Office Visit [facility] Rheumatology & Immunology [address] [phone] Butch Blair NP [address] [place] [phone] 07/26/2024 9:00 EDT Office Visit [facility] Rheumatology & Immunology [address] [phone] Riri Seymour MD [address] [place] [phone] Procedures Procedure Name Priority Date/Time Associated Diagnosis Comments HEPATITIS C AB W REFLEX TO HCV RNA BY PCR Routine 08/28/2019 9:00 EDT from Last 3 Months or Most Recently Relevant to Health Maintenance Results * HEPATITIS C AB W REFLEX TO HCV RNA BY PCR (08/28/2019 9:00 EDT) Hep C Antibody Negative Negative 08/29/2019 10:46 EDT [facility] Blood VENOUS BLOOD / Unknown 08/28/2019 9:00 EDT 08/28/2019 16:05 EDT Provider Outr Resulting Lab CHEMISTRY & BLOOD GAS ORDERABLES [facility] [address] [place] [address] from Last 3 Months or Most Recently Relevant to Health Maintenance Care Teams Credit Union Teller Relationship Specialty Start Date End Date Maureen Lua NP [address] [place], [place] [id number] PCP - General 11/06/20
--- OUTSIDE RECORDS SUMMARY | 2023-11-02 04:05 | XMS_ITS | Encounter Summary ---
Author Organization Formerly [facility] [place] [id number] Care Team Providers Care Skiver Machine Name Role Phone Unknown Primary Care Provider Unavailabl e Encounter Details Date Type Department Care Team (Late st Contact Info) Description 01/18/2018 Ancillary Procedure Radiology Library at [facility] [place] [address] Orquidea Patrick [place] [id number] Social History Tobacco Use Types Packs/Day Years [...] FILM LIBRARY STORAGE ONLY DX SPINE Routine 01/18/2018 12:00 AM EST documented in this encounter Results * Film Library- Storage Only DX Spine (01/18/2018 12:00 AM EST) Narrative DIANA - 08/22/2018 7:51 AM EDT This exam is auto-finalizing. It's purpose is for storage only. Orquidea COUCH FILM LIBRARY ORD ERABLES [facility] [place] documented in this encounter Visit Diagnoses Not on filedocumented in this encounter Care Teams Skiver Machine Relationship Specialty Start Date End Date Unknown None PCP - General 12/15/16 08/17/18 documented as of this encounter
--- OUTSIDE RECORDS SUMMARY | 2023-11-02 04:05 | XMS_ITS | Encounter Summary ---
Author Organization [facility] Address [address] [place] [address] Care Team Providers Care Supervisory Air Intercept Controller Name Role Phone Chanell Maureen García STATOR TESTER Primary Care Provider [phone] Reason for Visit * Reason Comments Medications Refill Encounter Details Date Type Department Care Team (Late st Contact Info) Description 08/31/2022 Refill [facility] Rheumatology & Immunology - [address] [phone] Riri Seymour MD [address] [place] [address], [address] [place] [address] Medications Refill Social History Tobacco [...] Dispensed Refills Start Date End Da te ENBREL SURECLICK 50 mg/mL (1 mL) subcutaneous pen INJECT 50 MG UNDER THE SKIN ONCE WEEKLY 12 mL 1 09/01/2022 02/24/2023 documented in this encounter Plan of Treatment Upcoming Encounters Date Type Department Care Team (Late st Contact Info) Description 01/17/2024 9:00 EST Office Visit [facility] Rheumatology & Immunology [address] [phone] Butch Blair NP [address] [place] [phone] 07/26/2024 9:00 EDT Office Visit [facility] Rheumatology & Immunology [address] [phone] Riri Seymour MD [address] [place] [phone] documented as of this encounter Visit Diagnoses Not on filedocumented in this encounter Discontinued Medications Medication Sig Discontinue Reason Start Date End Da te ENBREL SURECLICK 50 mg/mL (1 mL) subcutaneous pen INJECT 50 MG UNDER THE SKIN ONCE WEEKLY 03/09/2022 09/01/2022 documented as of this encounter Care Teams Supervisory Air Intercept Controller Relationship Specialty Start Date End Date Maureen Lua NP [address] [place] [address] PCP - General 11/06/20 documented as of this encounter
--- OUTSIDE RECORDS SUMMARY | 2023-11-02 04:05 | XMS_ITS | Encounter Summary ---
Author Organization [facility] Address [address] [place] [address] Care Team Providers Care Medical Orderly Name Role Phone Chanell Maureen García AUTOMOBILE TAILLIGHT ASSEMBLER Primary Care Provider [phone] Reason for Visit * Reason Comments Medications Refill Encounter Details Date Type Department Care Team (Late st Contact Info) Description 03/08/2022 Refill [facility] Rheumatology & Immunology - [address] [phone] Riri Seymour MD [address] [place] [address], [address] [place] [address] Medications Refill Social History Tobacco [...] THE SKIN ONCE WEEKLY 12 mL 1 03/09/2022 09/01/2022 documented in this encounter Plan of Treatment Upcoming Encounters Date Type Department Care Team (Late st Contact Info) Description 01/17/2024 9:00 EST Office Visit [facility] Rheumatology & Immunology [address] [phone] Butch Blair NP [address] [place] [phone] 07/26/2024 9:00 EDT Office Visit [facility] Rheumatology & Immunology [address] [phone] Riri Seymour MD [address] [place] [phone] documented as of this encounter Visit Diagnoses Not on filedocumented in this encounter Discontinued Medications Medication Sig Discontinue Reason Start Date End Da te ENBREL SURECLICK 50 mg/mL (1 mL) subcutaneous pen INJECT 1ML UNDER THE SKIN ONCE A WEEK 08/11/2021 03/09/2022 documented as of this encounter Care Teams Medical Orderly Relationship Specialty Start Date End Date Maureen Lua NP [address] [place] [address] PCP - General 11/06/20 documented as of this encounter
--- OUTSIDE RECORDS SUMMARY | 2023-11-02 04:05 | XMS_ITS | Encounter Summary ---
Author Organization [facility] Address [facility] [place] [address] Care Team Providers Care Automatic Typewriter Inspector Name Role Phone Maureen Lua APRN Primary Care Provider [phone] Reason for Visit * Reason Onset Date Comments Medication Refill 01/10/2019 Encounter Details Date Type Department Care Team (Late st Contact Info) Description 01/05/2019 Refill [place] [address] Ney Hickman MD [facility] [place] [address] Ankylosing spondylitis, unspecified site of spine Social History Tobacco Use Types Packs/Day Years Used Date Smoking Tobacco: Never Smokeless Tobacco: Never Sex and Gender Information Value Date Recorded Sex Assigned at Not on file Gender Identity Not on file Sexual Orientation Not on file documented as of this encounter Miscellaneous Notes * Telephone Encounter - Maria C Magallanes RPH - 01/10/2019 10:01 AM EST Awaiting lab results from outside facility before this will be prescribed. Labs were given to secretaries to fax to patient's preferred location. documented in this encounter Plan of Treatment Not on file documented as of this encounter Visit Diagnoses Diagnosis Ankylosing spondylitis, unspecified site of spine documented in this encounter Care Teams Automatic Typewriter Inspector Relationship Specialty Start Date End Date Maureen Lua APRN [address] [place] [address] PCP - General Internal Medicine 08/18/18 documented as of this encounter
--- OUTSIDE RECORDS SUMMARY | 2023-11-02 04:05 | XMS_ITS | Encounter Summary ---
Author Organization [facility] Address [address] [place] [address] Care Team Providers Care Multimedia Programmer Name Role Phone Chanell Maureen García DIGITAL STRATEGIST Primary Care Provider [phone] Reason for Visit * Reason Onset Date Comments Prior Auth, Medication 06/03/2023 Enbrel Encounter Details Date Type Department Care Team (Late st Contact Info) Description 06/03/2023 Telephone [facility] Rheumatology & Immunology - [facility] [address] [place], [place] [phone] Riri Seymour MD [address] [facility], [address] [place] [address] Prior Auth, Medication (Enbrel) Social History Tobacco Use Types Packs/Day Years [...] Yes 08/29/2020 documented as of this encounter Miscellaneous Notes * Telephone Encounter - Maria C Magallon - 06/07/2023 1110 EDT Prior Authorization Approval Medication: Enbrel Sureclick 50mg q7d Insurance: [employer] Insurance Type: Medicare Part D Approval Dates: 05/24/2023 until further notice Authorization Number: [id number] Required Pharmacy: No requirement [facility] able to fill?: YES Additional Info/Other Notes: Prior Authorization Submission Process - Urgent New Insurance Auth Medication: Enbrel Sureclick 50mg q7d Insurance: [employer] Insurance Type: Medicare Part D Date PA Request Received: 06/07/2023 PA Submission Date: 06/07/2023 CMM: [id number] Notes: Submitted by: Maria C Ford Phone: [phone] * Telephone Encounter - Shadia Tan MA - 06/03/2023 0737 EDT Covermymeds prior auth follow up [facility] service PA needed for enbrel sureclick 50mg/ml auto-injectors Seen 11/22/22 over telemedicine and has an appointment on 07/25/23 documented in this encounter Plan of Treatment Upcoming Encounters Date Type Department Care Team (Late st Contact Info) Description 01/17/2024 9:00 EST Office Visit [facility] Rheumatology & Immunology [address] [address] Butch Blair NP [address] [place] [address], [address] [place] [address] 07/26/2024 9:00 EDT Office Visit [facility] Rheumatology & Immunology [address] [phone] Riri Seymour MD [address] [place] [address], [address] [place] [address] documented as of this encounter Visit Diagnoses Not on filedocumented in this encounter Care Teams Multimedia Programmer Relationship Specialty Start Date End Date Maureen Lua NP [address] [place] [phone] PCP - General 11/06/20 documented as of this encounter
--- OUTSIDE RECORDS SUMMARY | 2023-11-02 04:05 | XMS_ITS | Encounter Summary ---
[place] [address] Care Team Providers Care Chief Nurse Anesthetist Name Role Phone Olaf Sahni MD Primary Care Provider + Encounter Details Date Type Department Care Team (Late st Contact Info) Description 06/27/2014 [place] [address] Amelie Hernandez [facility] [place] [address] Social History Tobacco Use Types Packs/Day Years Used Date Smoking Tobacco: Never Assessed Sex and Gender Information Value Date Recorded Sex Assigned at Not on file Gender Identity Not on file Sexual Orientation Not on file documented as of this encounter Plan of Treatment Not on file documented as of this encounter Visit Diagnoses Not on filedocumented in this encounter Care Teams Chief Nurse Anesthetist Relationship Specialty Start Date End Date Olaf Sahni MD [address] [place] [address] PCP - General 01/27/10 12/14/16 documented as of this encounter
--- OUTSIDE RECORDS SUMMARY | 2023-11-02 04:05 | XMS_ITS | Encounter Summary ---
Author Organization [facility] Address [address] [place] [address] Care Team Providers Care Communication Skills Instructor Name Role Phone Maureen Lua HAT CHECKER Primary Care Provider [phone] Reason for Referral * Consult (Urgent) - Authorized Specialty Diagnoses / Procedures Referred By [facility] t Referred To Contact Pharmacy Diagnoses Ankylosing spondylitis, unspecified site of spine ([facility]) Riri Seymour MD [address] [place] [phone] [facility] [address] [place] [address] Referral ID Status Reason Start Date Expiration Date Visits Requested Visits Authorized [id number] Authorized Specialty Services Required 3 1 1 Question Answer PA Type: Re-auth Medication to be Prior Authorized: Enbrel 50 mg/mL Auto-injector every 7 days. Comments The purpose of this request is to inform precertification staff that the requested service needs to be reviewed for prior-authorization. Reason for Visit * Reason Onset Date Comments Prior Auth, Medication 02/22/2023 Encounter Details Date Type Department Care Team ([facility] Contact Info) Description 02/22/2023 Telephone [facility] Rheumatology & Immunology [address] [address] Riri Seymour MD [address] [place] [phone] Prior Auth, Medication Social History Tobacco Use [...] encounter Miscellaneous Notes * Telephone Encounter - Sobeida Syed RN - 02/22/2023 0814 EST [id number] placed for Enbrel. * Telephone Encounter - Shadia Tan MA - 02/22/2023 0727 EST Covermymeds prior auth follow up [facility] PA needed for enbrel 50mg/ml auto-injectors Seen on 11/22/22 over telemedicine and has an appointment on 07/25/23 documented in this encounter Plan of Treatment Upcoming Encounters Date Type Department Care Team (Late st Contact Info) Description 01/17/2024 9:00 EST Office Visit [facility] Rheumatology & Immunology - [facility] [address] [place], [place] [address] Butch Blair, SHEELA 111 [facility] [address] [place] [phone] 07/26/2024 9:00 EDT Office Visit [facility] Rheumatology & Immunology - [facility] [address] [place], [place] [address] Riri Seymour MD 111 [facility] [address] [place] [phone] Scheduled Referrals Name Type Priority Associated Diagnoses Order Schedule AMB CONS/FOLLOW UP SPECIALTY PHARMACY Outpatient Referral Routine/Next Available Ankylosing spondylitis, unspecified site of spine ([facility]) Expected: 03/01/2023 (Approximate), Expires: 02/23/2024 documented as of this encounter Visit Diagnoses Diagnosis Ankylosing spondylitis, unspecified site of spine ([facility])- Primary documented in this encounter Care Teams Communication Skills Instructor Relationship Specialty Start Date End Date Maureen Lua NP [address] [place] [address] PCP - General 11/06/20 documented as of this encounter
--- OUTSIDE RECORDS SUMMARY | 2023-11-02 04:05 | XMS_ITS | Encounter Summary ---
Author Organization [facility] Address [address] [place] [address] Care Team Providers Care Equipment Engineering Technician Name Role Phone Chanell Maureen García CIGARETTE EXAMINER Primary Care Provider [phone] Reason for Visit * Reason Comments Medications Refill Encounter Details Date Type Department Care Team (Late st Contact Info) Description 09/27/2023 Refill [facility] Rheumatology & Immunology - [address] [phone] Riri Seymour MD [address] [place] [address], [address] [place] [address] Medications Refill Social History Tobacco [...] Yes 07/25/2023 documented as of this encounter Ordered Prescriptions Prescription Sig Dispensed Refills Start Date End Da te etanercept (ENBREL SURECLICK) 50 mg/mL (1 mL) subcutaneous pen INJECT 50MG UNDER THE SKIN ONCE WEEKLY 12 mL 1 09/28/2023 documented in this encounter Plan of Treatment Upcoming Encounters Date Type Department Care Team (Late st Contact Info) Description 01/17/2024 9:00 EST Office Visit [facility] Rheumatology & Immunology [address] [phone] Butch Blair NP [address] [place] [phone] 07/26/2024 9:00 EDT Office Visit [facility] Rheumatology & Immunology [address] [phone] Riri Seymour MD [address] [place] [phone] documented as of this encounter Visit Diagnoses Not on filedocumented in this encounter Discontinued Medications Medication Sig Discontinue Reason Start Date End Da te etanercept (ENBREL SURECLICK) 50 mg/mL (1 mL) subcutaneous pen INJECT 50 MG UNDER THE SKIN ONCE WEEKLY 03/10/2023 09/28/2023 documented as of this encounter Care Teams Equipment Engineering Technician Relationship Specialty Start Date End Date Maureen Lua NP [address] [place] [address] PCP - General 11/06/20 documented as of this encounter
--- OUTSIDE RECORDS SUMMARY | 2023-11-02 04:05 | XMS_ITS | Encounter Summary ---
[place] [address] Care Team Providers Care Tribunal Member Name Role Phone Maureen Lua APRN Primary Care Provider [phone] Reason for Visit * Reason Onset Date Comments Follow-up 11/17/2018 Encounter Details Date Type Department Care Team (Late st Contact Info) Description 11/17/2018 Telephone [place] [phone] Dariel Muhammad, RN Follow-up Social History Tobacco Use Types Packs/Day Years Used Date Smoking Tobacco: Never Smokeless Tobacco: Never Sex and Gender Information Value Date Recorded Sex Assigned at Not on file Gender Identity Not on file Sexual Orientation Not on file documented as of this encounter Miscellaneous Notes * Telephone Encounter - Dariel Muhammad RN - 11/17/2018 12:19 PM EDT Call received from Juanis advising they have not heard anything about the MRI of Spine that issupposed to be done at [facility]. RTC and left message advising that I have forwarded PA request to appropriate personel and that I have forwarded MRI request to the Secretaries. Advised her to call back with any questions or concerns. documented in this encounter Plan of Treatment Not on file documented as of this encounter Visit Diagnoses Not on filedocumented in this encounter Care Teams Tribunal Member Relationship Specialty Start Date End Date Maureen Lua APRN [address] [place] [address] PCP - General Internal Medicine 08/18/18 documented as of this encounter
--- OUTSIDE RECORDS SUMMARY | 2023-11-02 04:05 | XMS_ITS | Encounter Summary ---
Author Organization [facility] Address [address] [place] [address] Care Team Providers Care Recovery Room Rn Name Role Phone Chanell Maureen García MECHANICAL APPRENTICE Primary Care Provider [phone] Reason for Visit * Reason Onset Date Comments Results 10/16/2021 Encounter Details Date Type Department Care Team (Late st Contact Info) Description 10/16/2021 Telephone [facility] Rheumatology & Immunology - [address] [phone] Riri Seymour MD [address] [place] [address], [address] [place] [phone] Results Social History Tobacco Use Types Packs/Day Years [...] Telephone Encounter - Sobeida Syed RN - 10/16/2021 1425 EDT Faxed below message, SAMMY note, and lab results including genetic testing to [phone]. * Telephone Encounter - Riri Seymour MD - 10/16/2021 1407 EDT Spoke with patient. Shared results, including high CRP that is non specific and the genetic testing, which can be associated with iron overload. He needs a hematology referral and he prefers to do that locally. Advised him to call his PCP for a referral and that our office will send my last note toher and the copy of the testing such that she is aware of results. I did mention to her that his high ferritin is unlikely due to inflammatory considering that his exam does not support active synovitis (only doubtful area is the left elbow). Lastly, he had his left elbow MRI last night, I have not seen results. He will call me in 2 weeks for results if he does not hear back from me. Riri Seymour MD * Telephone Encounter - Jemima Hope - 10/16/2021 1119 EDT Pt is calling because he was told to call the clinic if he hasn't heard about his labs he got done . He did mention that he wanted to know more info on his iron . Please call pt to discuss documented in this encounter Plan of Treatment Upcoming Encounters Date Type Department Care Team (Late st Contact Info) Description 01/17/2024 9:00 EST Office Visit [facility] Rheumatology & Immunology - [address] [address] Butch Blair NP 111 [facility], [address] [place] [phone] 07/26/2024 9:00 EDT Office Visit [facility] Rheumatology & Immunology - [address] [phone] Riri Seymour MD [address] [phone] documented as of this encounter Visit Diagnoses Not on filedocumented in this encounter Care Teams Recovery Room Rn Relationship Specialty Start Date End Date Maureen Lua NP [address] [place] [address] PCP - General 11/06/20 documented as of this encounter
--- OUTSIDE RECORDS SUMMARY | 2023-11-02 04:05 | XMS_ITS | Encounter Summary ---
Author Organization [facility] Address [address] [place] [address] Care Team Providers Care Skip Miner Name Role Phone Chanell Maureen García ULTRASOUND SPECIALIST Primary Care Provider [phone] Encounter Details Date Type Department Care Team (Late st Contact Info) Description 05/30/2023 Lab Requisition [facility] Pathology & Laboratory Medicine - [address] [address] Gideon Gutierrez MD [address] [place] [phone] Encounter for screening for malignant neoplasm of colon Social History Tobacco Use Types Packs/Day Years [...] Info) Description 01/17/2024 9:00 EST Office Visit [facility] Rheumatology & Immunology [address] [address] Butch Blair NP [address] [place] [phone] 07/26/2024 9:00 EDT Office Visit [facility] Rheumatology & Immunology [address] [address] Riri Seymour MD [address] [place] [phone] documented as of this encounter Procedures Procedure Name Priority Date/Time Associated Diagnosis Comments SURGICAL PATHOLOGY Today 05/30/2023 9:27 EDT Encounter for screening for malignant neoplasm of colon documented in this encounter Results * SURGICAL PATHOLOGY (05/30/2023 9:27 EDT) Note to Patient The following pathology results have been interpreted by your pathologist and may be available to you before your health provider has had the opportunity to review them. Please allow time for your provider to receive these results and explore management options, if applicable. 05/31/2023 12:20 EDT [facility] Final Diagnosis A. COLON, DESCENDING, POLYP, BIOPSY: - Fragments of tubular adenoma. B. COLON, SIGMOID, POLYP, BIOPSY: - Inflammatory polyp with overlying ulceration and granulation tissue. 05/31/2023 12:20 [facility] Attestation By the signature below, the attending physician certifies that they have 1) personally conducted a gross and/or microscopic examination of the described specimen(s), and/or personally interpreted the results of laboratory testing of the described specimen(s), and 2) personally rendered or confirmed the above diagnosis. 05/31/2023 12:20 [facility] at 1220 Clinical History Screening colonoscopy, family history of colon cancer 05/31/2023 12:20 EDT [facility] Gross Description A. Received in formalin labelled with proper patient identification (initials S, M) and polyp descending colon is an aggregate of sanchez-pink polypoid tissue fragments (1.0 x 0.6 x 0.5 cm). The specimen is submitted entirely in A1-A2. B. Received in formalin labelled with proper patient identification (initials S, M) and sigmoid polyp is a single pink-red polypoid tissue (0.4 x 0.3 x 0.2 cm). Submitted intact in B1. BRANDY MENDEZ(ASCP) 05/30/2023 17:14 05/31/2023 12:20 EDT [facility] Performing Lab [facility] 05/31/2023 12:20 EDT [facility] Scanned Images 05/31/2023 12:20 EDT [facility] Tissue SIGMOID COLON STRUCTURE / Unknown 05/30/2023 9:27 EDT 05/30/2023 16:26 EDT Tissue specimen (specimen) SIGMOID COLON STRUCTURE / Unknown 05/30/2023 9:27 EDT 05/30/2023 16:26 EDT Gideon Gutierrez MD PATHOLOGY ORDERABLES [facility] [address] [place], [place] [phone] documented in this encounter Visit Diagnoses Diagnosis Encounter for screening for malignant neoplasm of colon Special screening for malignant neoplasms, colon documented in this encounter Care Teams Skip Miner Relationship Specialty Start Date End Date Maureen Lua NP [address] [place] [address] PCP - General 11/06/20 documented as of this encounter
--- OUTSIDE RECORDS SUMMARY | 2023-11-02 04:05 | XMS_ITS | Encounter Summary ---
Author Organization [facility] Address [address] [place] [address] Care Team Providers Care Block Sawyer Name Role Phone Chanell Maureen García WOOL HANKER Primary Care Provider Encounter Details Date Type Department Care Team (Late st Contact Info) Description 09/09/2022 Lab Requisition [facility] Pathology & Laboratory Medicine - [address] [address] Guillermo Reno MD [address] [place] [phone] Gastritis, unspecified, without bleeding; Epigastric pain; Gastro-esophageal reflux disease without esophagitis Social History Tobacco Use Types Packs/Day Years [...] Description 01/17/2024 9:00 EST Office Visit [facility] Rheumatology & Immunology [address] [address] Butch Blair NP [address] [place] [phone] 07/26/2024 9:00 EDT Office Visit [facility] Rheumatology & Immunology [address] [address] Riri Seymour MD [address] [place] [phone] documented as of this encounter Procedures Procedure Name Priority Date/Time Associated Diagnosis Comments SURGICAL PATHOLOGY Today 09/08/2022 8: 55 EDT Gastritis, unspecified, without bleeding Epigastric pain Gastro-esophageal reflux disease without esophagitis documented in this encounter Results * SURGICAL PATHOLOGY (09/08/2022 8:55 EDT) Note to Patient The following pathology results have been interpreted by your pathologist and may be available to you before your health provider has had the opportunity to review them. Please allow time for your provider to receive these results and explore management options, if applicable. 09/10/2022 13:05 EDT [facility] Final Diagnosis A. STOMACH, ANTRUM, BIOPSY: - Transitional mucosa with reactive (chemical) gastropathy. - Negative for Helicobacter pylori on H&E stained sections. B. STOMACH, POLYP, BIOPSY: - Gastric fundic mucosa with no significant diagnostic abnormalities. - No definite polyp identified. C. GASTROESOPHAGEAL JUNCTION, 40 CMS, BIOPSY: - Mild chronic inflammation of squamocolumnar mucosa with reactive changes. - Negative for intestinal metaplasia and dysplasia. 09/10/2022 13:05 EDT [facility] Attestation By the signature below, the attending physician certifies that they have 1) personally conducted a gross and/or microscopic examination of the described specimen(s), and/or personally interpreted the results of laboratory testing of the described specimen(s), and 2) personally rendered or confirmed the above diagnosis. 09/10/2022 13:05 [facility] at 1305 Clinical History Dx: Gastritis 09/10/2022 13:05 [facility] Gross Description A. Received in formalin labelled with proper patient identification (initials S, M) and antrum are 2 sanchez-pink tissues measuring 0.3 x 0.2 x 0.1 cm each. Submitted intact in A1. B. Received in formalin labelled with proper patient identification (initials S, M) and gastric polyp are 2 light sanchez tissues measuring 0.2 x 0.2 x 0.1 cm and 0.3 x 0.2 x 0.1 cm. Submitted intact in B1. C. Received in formalin labelled with proper patient identification (initials S, M) and GE junction at 40 cm are 3 pink-white tissues ranging in size from 0.1 x 0.1 x 0.1 cm up to 0.5 x 0.1 x 0.1 cm. Submitted intact in C1. BRANDY DANGELO(ASCP) 09/09/2022 18:49 09/10/2022 13:05 T [facility] Performing Lab [facility] 13:05 T [facility] Scanned Images 09/10/2022 13:05 T [facility] Tissue ENTIRE ESOPHAGUS / Unknown 09/08/2022 8:55 EDT 09/09/2022 17:59 EDT Tissue specimen (specimen) SPECIMEN FROM STOMACH OBTAINED BY TOTAL GASTRECTOMY / Unknown 09/08/2022 8:55 EDT 09/09/2022 17:59 EDT Tissue specimen (specimen) ESOPHAGEAL STRUCTURE / Unknown 09/08/2022 8:55 EDT 09/09/2022 17:59 EDT Guillermo Reno MD PATHOLOGY ORDERA TONE [facility] [address] [place] [address] documented in this encounter Visit Diagnoses Diagnosis Gastritis, unspecified, without bleeding Epigastric pain Abdominal pain, epigastric Gastro-esophageal reflux disease without esophagitis Esophageal reflux documented in this encounter Care Teams Block Sawyer Relationship Specialty Start Date End Date Maureen Lua NP [address] [place] [id number] PCP - General 11/06/20 documented as of this encounter
--- OUTSIDE RECORDS SUMMARY | 2023-11-02 04:05 | XMS_ITS | Encounter Summary ---
[place] [address] Care Team Providers Care Sales Center Associate Name Role Phone Maureen Lua APRN Primary Care Provider [phone] Reason for Visit * Reason Onset Date Comments Questions 12/06/2018 Prior Authorization 12/06/2018 Encounter Details Date Type Department Care Team (Late st Contact Info) Description 12/06/2018 [place] [address] Vivian Landaverde RN Questions; Prior Authorization Social History Tobacco Use Types Packs/Day Years Used Date Smoking Tobacco: Never Smokeless Tobacco: Never Sex and Gender Information Value Date Recorded Sex Assigned at Not on file Gender Identity Not on file Sexual Orientation Not on file documented as of this encounter Miscellaneous Notes * Telephone Encounter - Vivian Power RN - 12/12/2018 9:11 AM EDT I left a voicemail for Juanis/Erasto letting them know that Erasto's PA has been sent to the planand we are now waiting for approval or denial (response) from the insurance company. I left my nameand callback number for them if needed and welcomed them to call at anytime with further questions or concerns. We will contact them again when we find out the results of the PA. * Telephone Encounter - Vivian Power RN - 12/06/2018 9:25 AM EDT Patient's Juanis called asking for his MRI orders to be faxed to [facility]. I have asked Phuong to assist me with this need, and she has agreed. She also asks for a status update on Erasto's Indomethacin PA. I will ask Kayce for an update and call Juanis back when I receive a response. I left Juanis a return voicemail letting her know we would send the MRI orders out today for Erasto to [facility] and apologized about the delay (patient previously requested this and it was not done). I also informed her that we would ask for an update on the PA and call her back with that when we hearfrom our PA staff member. I left my name and callback number for her if needed and will be calling her back soon. documented in this encounter Plan of Treatment Not on file documented as of this encounter Visit Diagnoses Not on filedocumented in this encounter Care Teams Sales Center Associate Relationship Specialty Start Date End Date Maureen Lua, YARN MERCERIZER OPERATOR [address] [place] [address] PCP - General Internal Medicine 08/18/18 documented as of this encounter
--- OUTSIDE RECORDS SUMMARY | 2023-11-02 04:05 | XMS_ITS | Encounter Summary ---
Author Organization [facility] Address [address] [place] [address] Care Team Providers Care Grape Picker Name Role Phone Chanell Maureen García PATHOLOGY SPECIALIST Primary Care Provider [phone] Reason for Visit * Reason Comments Medications Refill Encounter Details Date Type Department Care Team (Late st Contact Info) Description 11/09/2022 Refill [facility] Rheumatology & Immunology - [address] [id number] Riri Seymour MD [address] [place] [address], [address] [place] [address] Medications Refill Social History Tobacco [...] DULoxetine (CYMBALTA) 30 mg delayed release capsule TAKE ONE CAPSULE BY MOUTH EVERY DAY 30 Capsule 3 11/10/2022 07/25/2023 celecoxib (CELEBREX) 200 mg capsule TAKE ONE CAPSULE BY MOUTH EVERY DAY 30 Capsule 3 11/10/2022 07/25/2023 documented in this encounter Plan of Treatment Upcoming Encounters Date Type Department Care Team (Late st Contact Info) Description 01/17/2024 9:00 EST Office Visit [facility] Rheumatology & Immunology [address] [phone] Butch Blair NP [address] [place] [phone] 07/26/2024 9:00 EDT Office Visit [facility] Rheumatology & Immunology [address] [address] Riri Seymour MD [address] [place] [phone] documented as of this encounter Visit Diagnoses Not on filedocumented in this encounter Discontinued Medications Medication Sig Discontinue Reason Start Date End Da te celecoxib (CELEBREX) 200 mg capsule Take 1 Capsule by mouth daily. 07/05/2022 11/10/2022 DULoxetine (CYMBALTA) 30 mg delayed release capsule Take 1 Capsule by mouth daily. 07/20/2022 11/10/2022 documented as of this encounter Care Teams Grape Picker Relationship Specialty Start Date End Date Maureen Lua NP [address] [place] [id number] PCP - General 11/06/20 documented as of this encounter
--- OUTSIDE RECORDS SUMMARY | 2023-11-02 04:05 | XMS_ITS | Encounter Summary ---
[place] [address] Care Team Providers Care Engineer Fishing Vessel Name Role Phone Maureen Lua APRN Primary Care Provider [phone] Reason for Visit * Reason Onset Date Comments Prior Authorization 12/08/2018 Encounter Details Date Type Department Care Team (Late st Contact Info) Description 12/08/2018 Tele[place] [phone] Radha Vaughn Prior Authorization Social History Tobacco Use Types Packs/Day Years Used Date Smoking Tobacco: Never Smokeless Tobacco: Never Sex and Gender Information Value Date Recorded Sex Assigned at Not on file Gender Identity Not on file Sexual Orientation Not on file documented as of this encounter Miscellaneous Notes * Telephone Encounter - Radha Vaughn - 12/08/2018 1:54 PM EDT Medication Prior Authorization Marylou Medication name/dose/directions: Indomethacin 75mg - once daily Rationale for request: Inflammatory arthropathy Health plan: [employer] ([facility]) Authorizing solar manufacturer's representative name: Kayce Faxed to health plan on: 12/08/18 Health plan decision: Approved Quantity approved: Authorization number: Start date: 09/09/18 End date: 12/08/19 documented in this encounter Plan of Treatment Not on file documented as of this encounter Visit Diagnoses Not on filedocumented in this encounter Care Teams Engineer Fishing Vessel Relationship Specialty Start Date End Date Maureen Lua APRN [address] [place] [address] PCP - General Internal Medicine 08/18/18 documented as of this encounter
--- OUTSIDE RECORDS SUMMARY | 2023-11-02 04:05 | XMS_ITS | Encounter Summary ---
Author Organization [facility] [place] [address] Care Team Providers Care Personal Property Assessor Name Role Phone Maureen Lua APRN Primary Care Provider [phone] Encounter Details Date Type Department Care Team (Latest Contact Info) Description 11/01/2018 9:30 AM EDT Office Visit Rheumatology at [facility] [place] [place] [address] Ney Hickman MD [facility] [place] [address] High risk medication use; Inflammatory arthropathy; Morning joint stiffness; Chronic bilateral low back pain without sciatica; Pain in both hands; Inflammatory back pain; Bilateral hip pain; Osteoarthritis, unspecified osteoarthritis type, unspecified site Social History Tobacco Use Types Packs/Day Years Used Date Smoking Tobacco: Never Smokeless Tobacco: Never Sex and Gender Information Value Date Recorded Sex Assigned at Not on file Gender Identity Not on file Sexual Orientation Not on file documented as of this encounter Last Filed Vital Signs Vital Sign Reading Time Taken Comments Blood Pressure 115/70 11/01/2018 9:10 AM EDT Pulse 51 11/01/2018 9:10 AM EDT Temperature 36.9 ??C (98.5 ??F) 11/01/2018 9:10 AM ED T Respiratory Rate - - Oxygen Saturation 100% 11/01/2018 9:10 AM EDT Inhaled Oxygen Concentration - - Weight 61.8 kg (136 lb 3.2 oz) 11/01/2018 9:10 A M EDT Height 167.6 cm (5' 6) 11/01/2018 9:10 AM EDT Body Mass Index 21.98 11/01/2018 9:10 AM EDT documented in this encounter Progress Notes * Ney Hickman MD - 11/01/2018 9:30 AM EDT Rheumatology Follow -U[p Note Rheumatology Hx ?? ankylosing spondylitis ?? Cosentyx 300 mg monthly ?? Previously on Enbrel and Humara ?? [...] pain takes a daily also is on Green Castle.. He has stomach issues with NSAIDs takes his Dexilant after meals does not use NSAIDs with food. I have reviewed the provided records, pertinent records available at the time of the [facility] appointment with in the medical record and any forms completed by the patient. These have been scanned into the medical record for future review. Interval HX Erasto Chapman is a 58 y.o. male with as noted above he still is having hand, shoulder right stbilateral hips knees feet and PIPs. No swelling redness or warmth. He has reduced range of motion in the neck is maintaining good range of motion in the lower back with a lot of physical labor and exercise. Reports point since 2 to 4 hours joint pain, joint swelling hands, with pain in the back & Hips RT. Lt .He reports chronic fatigue but wood snot been using his CPAP do to difficulties. He has chronic fatigue which is a concern to him. Last visit we had discussed switching up NSAIDs. He is reluctant to to concern of GI stuff. His PCP told him the NSAIDs could be risk and other meds were safer. He has been continued on indomethicns He has issus with his Patient denies Achilles tendonitis, plantar fasciitis, diffuse [...] file Gets together: Not on file Attends yarsanism service: Not on file Active member of [...] Outpatient Medications Medication Sig Dispense Refill ??? cholecalciferol, Vitamin D3, (CHOLECALCIFEROL, VITAMIN D3,) 2,000 unit Capsule Take by mouth. ??? aspirin 81 mg Tablet, Chewable Take 81 mg by mouth Daily. ??? cyanocobalamin, vitamin B-12, 1,000 mcg Tablet Take 1,000 mcg by mouth Daily. ??? HYDROcodone-acetaminophen (NORCO) 5-325 mg Tablet Take 1 tablet by mouth Every 4 hours as needed. ??? indomethacin (INDOCIN SR) 75 mg Capsule, Sustained Release daily. ??? COSENTYX PEN, 2 PENS, 150 mg/mL [...] to Visit Medication Sig Dispense Refill ??? cholecalciferol, Vitamin D3, (CHOLECALCIFEROL, VITAMIN D3,) 2,000 unit Capsule Take by mouth. ??? aspirin 81 mg Tablet, Chewable Take 81 mg by mouth Daily. ??? cyanocobalamin, vitamin B-12, 1,000 mcg Tablet Take 1,000 mcg by mouth Daily. ??? HYDROcodone-acetaminophen (NORCO) 5-325 mg Tablet Take 1 tablet by mouth Every 4 hours as needed. ??? indomethacin (INDOCIN SR) 75 mg Capsule, Sustained Release daily. ??? COSENTYX PEN, 2 PENS, 150 mg/mL [...] visit. No Known Allergies Physical Exam: BP 115/70 Pulse 51 Temp 36.9 ??C (98.5 ??F) Ht 167.6 cm (5' 6) Wt 61.8 kg (136 lb 3.2 oz) SpO2 100% BMI 21.98 kg/m?? General: AAOx3, NAD HEENT: Mucous membranes are moist, no [...] to light touch is grossly normal throughout. DTRs are 2+ throughout. Toes down going bilaterally. Skin: (-)ulcers, (-)rash \ Vascular: Pulses are equal in all extremities. MSK Back: Non tender over the spine and costovertebral angles bilaterally. (- )Kirsten,, heel to wall within normal limits shoulders 15 Extremities Shoulders: FROM, non-tender to palpation Elbows:FROM, (-)pain, (-)nodules Wrists: FROM, no swelling, non-tender Hands: No synovitis, no MCP compression tenderness, full claw and fist Hips: FROM, (-) fader (-kirsten) Knees: (-)effusions, non-tender ROM Ankles: FROM, non-tender, [...] hx of ARGELIA andGOUT? Likely patient had Notes doing better on Enrbel then humara and cosentyx The symptoms describe though are less consistent with IBP and more mechanical His fatigue could be do to but has FLORIN and does not use CPAP so also difficult to distinguish. Previously discussed switching NSAIDs - and recommendation were made but patient did no try do to concern o stomach issues despite equivallce risk and we dicussed Celebrex but he was not interest possibly because it was tried before without benefit. He feels his Green Castle helps him which is managed by his primary. It was explained that the NSAIDs do not address inflammation. At this point MRI to evaluate for active inflammation - and possibly utilizing Pain mangement We discussed going back ENBREL >251minute spent educaitng the patient, discussing the plan Orders Placed This Encounter Procedures ??? MRI Pelvis MSK (Bones Joints Muscle) wo CONTRAST ??? MRI Lumbar Spine wo Contrast (Generic) ??? XR Hand Min 3 views Bilat (Generic) ??? XR Cervical Spine 2 or 3 Views ? ? XR Thoracic Stent AP & Lat w Oblique documented in this encounter Plan of Treatment Not on file documented as of this encounter Visit Diagnoses Diagnosis High risk medication use Encounter for long-term (current) use of other medications Inflammatory arthropathy Arthropathy, unspecified, site unspecified Morning joint stiffness Stiffness of joint, not elsewhere classified, unspecified site Chronic bilateral low back pain without sciatica Pain in both hands Inflammatory back pain Bilateral hip pain Pain in joint, pelvic region and thigh Osteoarthritis, unspecified osteoarthritis type, unspecified site documented in this encounter Care Teams Personal Property Assessor Relationship Specialty Start Date End Date Maureen Lua, REGISTERED NURSE PRACTITIONER [address] [place] [address] PCP - General Internal Medicine 08/18/18 documented as of this encounter
--- OUTSIDE RECORDS SUMMARY | 2023-11-02 04:05 | XMS_ITS | Encounter Summary ---
[place] [address] Care Team Providers Care Food Services Coordinator Name Role Phone Maureen Lua APRN Primary Care Provider [phone] Encounter Details Date Type Department Care Team (Late st Contact Info) Description 01/04/2019 Specialty [place] [address] Alessandro Mccormick Social History Tobacco Use Types Packs/Day Years Used Date Smoking Tobacco: Never Smokeless Tobacco: Never Sex and Gender Information Value Date Recorded Sex Assigned at Not on file Gender Identity Not on file Sexual Orientation Not on file documented as of this encounter Progress Notes * Maria C Magallanes RPH - 01/04/2019 2:12 PM EDT Specialty Pharmacy Consultation; Maria C Magallanes RPH Comprehensive Medication Management (CMM): Specialty Consult Erasto Akers Ari Diagnosis: Therapy Start Date: TBD, pending insurance approval Contact in person or via telephone: in person Summary and Recommendations: Erasto Chapman was seen in clinic for a review of Enbrel for the treatment of ankylosing spondylitis. He has been on Enbrel in the past and feels comfortable with the medication. Patient is aware ofthe prior authorization process and timeline and was given [facility] contact information for any questions. Patient requested that prescription be sent to [facility] once approved. Patient was educated on the Enbrel labeled black box warnings regarding the risk of serious infections including tuberculosis and malignancies. Discussed other precautions with Enbrel including anaphylaxis/hypersensitivity and hepatitis B reactivation. Patient was educated on the importance of infection prevention including best practices for hand hygiene and the annual flu vaccine. Discussed theneed to avoid live vaccines during treatment. Dose hold parameters were reviewed including suspected/known infection, prescribed antibiotic therapy, or scheduled surgery. Patient agrees to contact the clinic to review dose hold in these settings. Educated patient on the potential side effects of Enbrel including injection site reaction, diarrhea, rash, and infections such as URTI/sinusitis. Discussed with patient that it may take 3-4 months to experience the full benefit of Enbrel. A review of dosing, storage, and administration was completed. Patient was educated on the dosing schedule, 50 mg subcutaneously every 7 days. Patient understands no changes to current drug regimen were made at the appointment and that the pharmacist is providing recommendations (summary located at top of note) for provider review and follow up. Maria C Magallanes RPH 01/05/19 2:46 PM documented in this encounter Plan of Treatment Not on file documented as of this encounter Visit Diagnoses Not on filedocumented in this encounter Care Teams Food Services Coordinator Relationship Specialty Start Date End Date Maureen Lua APRN [address] [place] [address] PCP - General Internal Medicine 08/18/18 documented as of this encounter
--- OUTSIDE RECORDS SUMMARY | 2023-11-02 04:05 | XMS_ITS | Encounter Summary ---
Author Organization [facility] [place] [address] Care Team Providers Care Online Content Editor Name Role Phone Maureen Lua APRN Primary Care Provider [phone] Reason for Referral * Consultation (Routine) - Closed Specialty Diagnoses / Procedures Referred By Contac t Referred To Contact Pain Management Diagnoses Ankylosing spondylitis, unspecified site of spine but with mecqhniocal back pain Ney Hickman MD [facility] [place] [address] [facility] [address] [place] [phone] Referral ID Status Reason Start Date Expiration Date V isits Requested Visits Authorized [id number] Closed Consult, Test & Treat 08/18/2018 08/18/2019 1 1 Reason for Visit * Consultation (Routine) - Specialty Diagnoses / Procedures Referred By Contac t Referred To Contact Rheumatology Diagnoses Ankylosing Spondyltis Brionna Neves MD [facility] RHEUMATOLOGY [address] [place] [id number] [facility] Rheumatology [address] [place] [phone] Referral ID Status Reason Start Date Expiration Date V isits Requested Visits Authorized [id number] 04/17/2018 04/17/2019 1 1 Encounter Details Date Type Department Care Team (Late st Contact Info) Description 08/18/2018 11:00 AM EDT Office Visit Rheumatology at [facility] [place] [address] Ney Hickman MD [facility] [place] [address] Ankylosing spondylitis, unspecified site of spine Social History Tobacco Use Types Packs/Day Years Used Date Smoking Tobacco: Never Smokeless Tobacco: Never Sex and Gender Information Value Date Recorded Sex Assigned at Not on file Gender Identity Not on file Sexual Orientation Not on file documented as of this encounter Last Filed Vital Signs Vital Sign Reading Time Taken Comments Blood Pressure 122/68 08/18/2018 10:50 AM EDT Pulse 54 08/18/2018 10:50 AM EDT Temperature 36.8 ??C (98.3 ??F) 08/18/2018 10:50 AM E DT Respiratory Rate - - Oxygen Saturation 100% 08/18/2018 10:50 AM EDT Inhaled Oxygen Concentration - - Weight 61.2 kg (135 lb) 08/18/2018 10:50 AM EDT Height 167.6 cm (5' 6) 08/18/2018 10:50 AM EDT Body Mass Index 21.79 08/18/2018 10:50 AM EDT documented in this encounter Progress Notes * Ney Hickman MD - 08/18/2018 11:00 AM EDT Rheumatology Consult Note Reason for Consult: Erasto Chapman presents today at the request of Maureen Lua APRN for evaluation of ankylosing spondylitis I have reviewed the provided records, pertinent records available at the time of the [facility] [place] with in the medical record and any forms completed by the patient. These have been scanned into the medical record for future review. HPI: Erasto Chapman is a 57 y.o. male who presents today for evaluation of ankylosing spondylitis, He is a previous patient of Brionna Neves currently on Cosentyx 300 mg monthly/ Symptoms started when hewas a child. He was diagnosed with gout at age 12 and eventually diagnosed with juvenile arthritis.X-rays of his spine 2017 show complete SI joint fusion on the [...] pain takes a daily also is on Harwick.. Stomach issues with NSAIDs takes his Dexilant after meals does not use NSAIDs with food. He has pain in the back shoulders mostly right bilateral hips knees feet and PIPs. No swelling redness or warmth. He has reduced range of motion in the neck is maintaining good range of motion in thelower back with a lot of physical labor and exercise. Reports point since 2 to 4 hours joint pain joint swelling hands back hips knees feet. Chronic cough for known origin history of blood pressure hoarseness dry mouth weakness some memory loss. A lot of physical labor at home. No history of spine the family he said 2 foot operations 1 shoulder. Usually has difficulty with walking going to sleep sitting is seen. Pain getting restful sleep working in the morning stiffness sometimes has issues with engaging in leisure activities sexual relationship family members going to see dressing self reaching behind head or back touching feet when seated getting out of chair, sitting down currently 7 stairs or climbing stairs and small hand to he is on disability Patient asked if we increase norco Patient denies Achilles tendonitis, plantar fasciitis, diffuse [...] (-)focal weakness, (-)paresthesias, (-)gait instability. Skin (-)Raynaud's, ulcers Psych (-) mood disorder. No past medical history on file. Patient Active Problem List Diagnosis Date Noted ??? Microscopic hematuria 07/26/2014 ??? Nephrolithiasis 07/26/2014 [...] on phone: None Gets together: None Attends anglican service: None Active member of club or organization: None Attends meetings of clubs or organizations: None Relationship status: None ??? Intimate partner violence: Fear of current or ex partner: None Emotionally abused: None Physically abused: None Forced sexual activity: None Other Topics Concern ??? None Social History Narrative ??? None Current Outpatient Medications Medication Sig Dispense Refill ??? aspirin 81 mg Tablet, Chewable Take [...] 2 PENS ONCE A MONTH 0 ??? zolpidem (AMBIEN) 5 mg Tablet TAKE ONE TABLET BY MOUTH AT BEDTIME NEEDED FOR INSOMNIA 0 ??? lisinopril (PRINIVIL;ZESTRIL) 5 mg Tablet Take 5 mg by mouth daily. ??? dexlansoprazole (DEXILANT) 60 mg Cap, Delayed Rel., Multiphasic Take 60 mg by mouth daily. ??? simvastatin (ZOCOR) 40 mg Tablet Take 40 mg by mouth nightly. ??? naproxen (NAPROSYN) 500 mg Tablet Take 500 mg by mouth daily. ??? ondansetron (ZOFRAN-ODT) 4 mg Tablet, Rapid Dissolve as needed. No current facility-administered medications for this visit. Current Outpatient Medications on File Prior to Visit Medication Sig Dispense Refill ??? aspirin 81 mg Tablet, Chewable Take [...] 2 PENS ONCE A MONTH 0 ??? zolpidem (AMBIEN) 5 mg Tablet TAKE ONE TABLET BY MOUTH AT BEDTIME NEEDED FOR INSOMNIA 0 ??? lisinopril (PRINIVIL;ZESTRIL) 5 mg Tablet Take 5 mg by mouth daily. ??? dexlansoprazole (DEXILANT) 60 mg Cap, Delayed Rel., Multiphasic Take 60 mg by mouth daily. ??? simvastatin (ZOCOR) 40 mg Tablet Take 40 mg by mouth nightly. ??? naproxen (NAPROSYN) 500 mg Tablet Take 500 mg by mouth daily. ??? [DISCONTINUED] aspirin 81 mg Tablet, Delayed Release (E.C.) Take 81 mg by mouth daily. ??? ondansetron (ZOFRAN-ODT) 4 mg Tablet, Rapid Dissolve as needed. ??? [DISCONTINUED] Etanercept 50 mg/mL (0.98 mL) Pen Injector Inject 50 mg subcutaneously once a week. No current facility-administered medications on file prior to visit. No Known Allergies Physical Exam: BP 122/68 Pulse 54 Temp 36.8 ??C (98.3 ??F) Ht 167.6 cm (5' 6) Wt 61.2 kg (135 lb) SpO2 100% BMI 21.79 kg/m?? General: AAOx3, NAD HEENT: Mucous membranes [...] Plan or Recommendation: Erasto Chapman is a 57 y.o. male who presents today with ankylosing spondylitis she has pretty good motion in his lower back and hips despite documentation of fusion. We will continue Cosentyx forward for 2 more doses we will consider going back to switching to another TNF inhibitor such as Simponi Aria or Remicade. I would like to retry methotrexate in this patient and monitor his LFTs he likely did not get good results methotrexate since not approved for axial spine disease and ankylosing spondylitis.. Patient given material to read about in regards to this NSAIDs and abdominal pain.-Recommended naproxen 500 mg tablets twice daily stopping indomethacin-patient educated onset should be taken with food and non- empty stomach. Patient and his said theywill try to ensure the patient took medications with food. Also recommended scheduled Tylenol 3 times a day anywhere from 625 2000 mg to depending on Harwick use. Patient understands that he will have to calculate in the Tylenol with the Harwick for a total daily use. Also recommend the patient take his Dexilant in our to 30 minutes before his first meal to get the best effect. Patient's pain may be secondary to chronic destruction and sseems to have mechanical nature associated with activity worse at the end of the day of- will consider pain management referral a >25 minute spent educaitng the patient Orders Placed This Encounter Procedures ??? CRP, acute inflammation ??? Comprehensive metabolic panel (non-fasting) ??? CBC (with Diff) ??? Sedimentation rate ??? HLA-B27 ??? Referral to Pain Clinic documented in this encounter Plan of Treatment Scheduled Referrals Name Type Priority Associated Diagnoses Orde r Schedule Referral to Pain Clinic Outpatient Referral Routine Ankylosing spondylitis, unspecified site of spine Ordered: 08/18/2018 documented as of this encounter Visit Diagnoses Diagnosis Ankylosing spondylitis, unspecified site of spine documented in this encounter Care Teams Online Content Editor Relationship Specialty Start Date End Date Maureen Lua APRN [address] [place] [address] PCP - General Internal Medicine 08/18/18 documented as of this encounter
--- OUTSIDE RECORDS SUMMARY | 2023-11-02 04:05 | XMS_ITS | Encounter Summary ---
Author Organization [facility] [place] [address] Care Team Providers Care Remelt Sugar Boiler Name Role Phone Maureen Lua APRN Primary Care Provider [phone] Encounter Details Date Type Department Care Team (Late st Contact Info) Description 12/20/2018 5:50 PM EDT Ancillary Procedure Radiology Library at [facility] [place] [address] Ney Hickman MD [facility] [place] [address] Social History Tobacco Use Types Packs/Day Years [...] Associated Diagnosis Comments FILM LIBRARY STORAGE ONLY MR PELVIS Routine 12/20/2018 5:48 PM EDT documented in this encounter Results * Film Library- Storage Only MR Pelvis (12/20/2018 5:48 PM EDT) Narrative [facility] - 12/20/2018 5:48 PM EDT This exam is auto-finalizing. It's purpose is for storage only. Ney Hickman MD IMG FILM LIBRARY ORD ERABLES [place], [place] documented in this encounter Visit Diagnoses Not on filedocumented in this encounter Care Teams Remelt Sugar Boiler Relationship Specialty Start Date End Date Maureen Lua, [employer] [address] [place] [address] PCP - General Internal Medicine 08/18/18 documented as of this encounter
--- OUTSIDE RECORDS SUMMARY | 2023-11-02 04:05 | XMS_ITS | Encounter Summary ---
Author Organization [facility] Address [address] [place] [address] Care Team Providers Care [employer] Aircre[employer] Mechanical Name Role Phone Maureen Lua PEDIATRIC DENTIST Primary Care Provider [phone] Reason for Visit * Reason Comments Follow-up Encounter Details Date Type Department Care Team (Late st Contact Info) Description 07/25/2023 8:40 EDT Office Visit [facility] Rheumatology & Immunology - [address] [phone] Riri Seymour MD [address] [place] [address], [address] [place] [address] Ankylosing spondylitis, unspecified site of spine (HCC-CMS) (Primary Dx); At risk for side effect of medication [...] (96 ??F) 07/25/2023 0822 EDT Respiratory Rate - - Oxygen Saturation - - Inhaled Oxygen Concentration - - Weight 65.8 kg (145 lb) 07/25/2023 08 EDT Height 167.5 cm (5' 5.95) 07/25/2023 0822 EDT Body Mass Index 23.44 07/25/2023 0822 EDT documented in this encounter Functional Status [...] Yes 07/25/2023 documented as of this encounter Patient Instructions * Patient Instructions* Riri Seymour MD - 07/25/2023 8:40 EDT Labs today. Start sulfasalazine 1 tablet twice daily and do labs and if normal increase to 2 tablets in AM and 1 tablet in PM. Then labs 1 month after and if normal every 3 months. Continue Enbrel weekly. Follow up in 6 months with Butch Blair and 12 months with me Riri Seymour MD documented in this encounter Ordered Prescriptions Prescription Sig Dispensed Refills Start Date End Da te sulfaSALAzine (AZULFIDINE) 500 mg EC tablet Take 1 tablet twice daily for 2 weeks, then labs and then if normal increase to 2 tablets in AM and 1 tablet in PM. 90 Tablet 3 07/25/2023 documented in this encounter Progress Notes * Riri Seymour MD - 07/25/2023 0840 EDT [facility] Department of Rheumatology Follow Up Visit PCP Maureen Lua 07/25/2023 History of Present Illness: Erasto Chapman . is a 62 y.o. male with past medical history of ARGELIA/Ankylosing spondylitis, osteoporosis, hypertension, dyslipidemia, B12 deficiency, chronic pain syndrome, secondary OA, is following up with me today Diagnosed with gout? around age 12. Reports his first MTP was swollen then. Two years later he was diagnosed with ARGELIA. Other joints involved knees, heels (walked on toes). Lower back involvement did not start until 30s. He was treated with NSAIDs (indomethacin). He was treated here by Dr. Clancy for a number of years, started anti TNF therapy (etanercept), he was on etanercept about 14 to 15 years. He last saw Ayaka Dash in 2014, and he was still on Etanercept then. He was never pain free while on etanercept, though he found it quite effective in general. He reports he had pain throughout even on etanercept, though not as severe. Back pain never subsided. He transferred his care to [place], he was switched to adalimumab, was on it for about 6 months and later secukinumab for less than 1 year and most recently in 05/2019 while under the care of at [facility], he was switched back to etanercept. During [...] joint swelling). Plan was to update umer kristine, start pregabalin and refer him to physical therapy, as well as continuing etanercept and follow up. It appears that he didnot tolerate pregabalin. He is now on duloxetine (insurance denied milnacipran). Interval history: as of our last visit 11/2022, he was experiencing headaches that he thought were due to duloxetine. He reported headaches with celecoxib as well. Reported pain over neck and hands, worse time of the day was mornings, though he would experience night time pain as well. He remained on etanercept and plan was to continue the same. TODAY: Discontinued duloxetine due to headaches. Tried milnacipran and his blood pressure was elevated anddiscontinued it. Discontinued celebrex due to headaches as well. Reports fatigue, brain fog and pain. Worse pain is over arms and shoulders as well as back from neck down to upper lumbar area. Back pain depends on how much he does. Not as bad as he is doing activities, but worse afterwards. Was wearing elbow bands for some time and it helped. Had diffuse hand pain into his forearms. Reports more myalgia that joint pain. Hips, knees, ankles and toes are chronically painful, but not the most prominent areas of pain. Morning stiffness lasts all day. Had a colonoscopy 05/2023. Was off of etanercept 04/2023 and 05/2023 as he was advised to hold his etanercept prior to his colonoscopy. Colonoscopy was routine. This time he will need a repeat one in 5 years . Could not do PT due to insurance issues (medicaid). Review of Systems: I have reviewed the systems reviewed by the nurse Past Medical History: Diagnosis Date Arthritis Hypercholesteremia Hypertension Osteoporosis Vitamin B 12 deficiency Past Surgical History: Procedure Laterality Date FOOT SURGERY 1979 Replaced joint in big toe Family History Problem Relation Age of Onset Cancer Mother throat ca Cancer Father prostate Heart Disease Father ID at 54 Heart Disease Brother at age 40 Social History Socioeconomic History Marital status: Spouse name: Not on file Number of children: Not on file Years of education: Not on file Highest education level: Not on file Occupational History Not on file Tobacco Use Smoking status: Never Passive exposure: Past (parents smoked-childhood) Smokeless tobacco: Former Types: Chew Quit date: 09/15/1979 Vaping Use Vaping status: Never Used Substance and Sexual Activity Alcohol use: Yes Comment: very rarely Drug use: Not on file Sexual activity: Not on file Other Topics Concern Not on file Social History Narrative Not on file Social Determinants of Health Financial Resource Strain: Medium Risk (11/26/2021) Received from [facility] Overall Financial Resource Strain (CARDIA) Difficulty of Paying Living Expenses: Somewhat hard Food Insecurity: Food Insecurity Present (11/26/2021) Received from [facility] Hunger Vital Sign Worried About Running Out of Food in the Last Year: Sometimes true Ran Out of Food in the Last Year: Not on file Transportation Needs: No Transportation Needs (11/26/2021) Received from [facility] PRAPARE - Transportation Lack of Transportation (Medical): No Lack of Transportation (Non-Medical): No Physical Activity: Not on file Stress: Not on file Social Connections: Not on file Housing Stability: Not on file No Known Allergies Current Outpatient Medications Medication Sig Aspirin 81 mg Tab Take 1 Tablet by mouth daily. Cholecalciferol, Vitamin D3, 50 mcg (2,000 unit) capsule Take 1 Capsule by mouth daily. cyanocobalamin (VITAMIN B-12) 1,000 mcg tablet Take 1 Tablet by mouth daily. cyanocobalamin (VITAMIN B12) 1,000 mcg/mL injection Inject 0.1 mL into the muscle every 28 days. dexlansoprazole (DEXILANT) 60 mg capsule Take 1 Capsule by mouth daily. etanercept (ENBREL SURECLICK) 50 mg/mL (1 mL) subcutaneous pen INJECT 50 MG UNDER THE SKIN ONCE WEEKLY folic acid (FOLVITE) 800 mcg tablet Take 1 Tablet by mouth daily. hydroCHLOROthiazide (HYDRODIURIL) 25 mg tablet Take 0.5 Tablets by mouth daily. hydrocodone-acetaminophen (NORCO) 5-325 mg per tablet Take 1 Tablet by mouth every 4 hours as needed. (Patient not taking: Reported on 07/25/2023) MULTIVITAMIN ORAL Take 1 Tablet by mouth daily. naproxen (NAPROSYN) 500 mg tablet TAKE ONE TABLET BY MOUTH TWICE A DAY NEEDED FOR PAIN (Patient not taking: Reported on 11/22/2022) simvastatin (ZOCOR) 40 mg tablet Take 1 Tablet by mouth daily. Physical exam: BP 139/83 (BP Cuff Location: Right arm, BP Patient Position: Sitting, BP Cuff Sizes: Adult, regular) Pulse 56 Temp (!) 35.6 ??C (96 ??F) Ht 167.5 cm (65.95) Wt 65.8 kg (145 lb) BMI 23.44 kg/m?? HEENT: moist oral mucosa, no ulcers Neck: No lymphadenopathy CV: S1 and S2 audible, rhythmic, no murmurs or rubs Respiratory: breath sounds audible throughout, no crackles or wheezing Abdomen: Bowel sounds audible, soft to deep palpation, no hepatomegaly or splenomegaly Skin: no rashes MSK: Neck: Full ROM Shoulders: Full ROM, no tenderness or swelling Elbows:Full ROM, no tenderness or swelling Wrist:Full ROM, no tenderness or swelling Hand:Full ROM, no tenderness or swelling Heketty and Taina's b/l Lower back:Full ROM Hip:Full ROM Knee:Full ROM, no tenderness or swelling Ankles: Full ROM, no tenderness or swelling Feet:Full ROM, no tenderness or swelling Overriding first toe on the let. Laboratory testing: Component Latest Ref Rng 07/05/2022 WBC 4.00 [...] 1.4 Anion Gap 5 - 14 7 25OH Vitamin D Tot 30 - 100 ng/mL Vitamin B-12 211 - 911 pg/mL TSH 0.47 - 4.68 mIU/L C-Reactive Protein <10.0 mg/L <7.0 Sed. Rate Westergren 0 - 20 mm/hr 2 Imagin11/06/2020 9:11 10/08/2021 11:52 07/05/2022 9:58 11/22/2022 14:09 07/25/2023 8:24 RAPID3 SCORES AND INTERPRETATION Functional Status 2.3 2.7 3.3 1.7 2.7 Pain Tolerance 7 6 7 6.5 6.5 Global Estimate 6 4 5.5 8 5 RAPID3 15.3 12.7 15.8 16.2 14.2 Interpretation High High High High High Problem List: Patient Active Problem List Diagnosis Hypertensive disorder Cobalamin deficiency Ankylosing spondylitis ([facility]) Assessment Plan: Ankylosing spondylitis He has not clinically apparent synovitis or enthesitis at this visit, however, he has had enthesitis recently, confirmed on MRI elbow. I will add SSZ in hopes that if there is lingering inflammatory pain that I am not able to appreciate on exam, it will help with pain control. Central sensitization syndrome. He has significant pain, fatigue without clinically apparent synovitis at this visit. Unfortunately he has not tolerated SNRIs or pregabalin in the past. Would benefit from PT, if feasible. - COMPREHENSIVE METABOLIC PANEL (CMP); Future - COMPLETE BLOOD COUNT AND DIFFERENTIAL; Future - C REACTIVE PROTEIN; Future - COMPLETE BLOOD COUNT AND DIFFERENTIAL; Standing - COMPREHENSIVE METABOLIC PANEL (CMP); Standing Plan; As outlined in patient's instructions Patient Instructions Labs today. Start sulfasalazine 1 tablet twice daily and do labs and if normal increase to 2 tablets in AM and 1 tablet in PM. Then labs 1 month after and if normal every 3 months. Continue Enbrel weekly. Follow up in 6 months with Butch Blair and 12 months with me Riri Seymour MD I spent a total of 40 minutes on the date of this encounter meeting with the patient and reviewing documentation/coordinating care as described in the above note. No procedures were performed at the time of the visit. Riri Seymour MD Department of Rheumatology Attending Physician Pager: [phone] documented in this encounter Plan of Treatment Upcoming Encounters Date Type Department Care Team (Late st Contact Info) Description 01/17/2024 9:00 EST Office Visit [facility] Rheumatology & Immunology [address] [address] Butch Blair NP [address] [place] [phone] 07/26/2024 9:00 EDT Office Visit [facility] Rheumatology & Immunology [address] [address] iRri Seymour MD [address] [place] [phone] documented as of this encounter Results * SED RATE (07/25/2023 10:02 EDT) Sed Rate 2 0 - 20 mm/hr 07/25/2023 11:27 EDT [facility] Blood VENOUS BLOOD / Unknown Venipuncture / Unknown 07/25/2023 10:02 EDT 07/25/2023 10:49 EDT Riri Seymour MD HEMATOLOGY & PF4 ORDERABLES [facility] [address] [place] [address] * C REACTIVE PROTEIN (07/25/2023 10:02 EDT) C-Reactive Protein <5.0 <10.0 mg/L 07/25/2023 11:22 EDT [facility] Blood VENOUS BLOOD / Unknown Venipuncture / Unknown 07/25/2023 10:02 EDT 07/25/2023 10:49 EDT Riri Seymour MD CHEMISTRY & BLOO D GAS ORDERABLES [facility] [address] [place] [address] * COMPLETE BLOOD COUNT AND DIFFERENTIAL (07/25/2023 10:02 EDT) WBC 4.91 4.00 - 10.40 K/cmm 07/25/2023 10:54 [facility] RBC 5.07 4.36 - 5.78 M/cmm 07/25/2023 10:54 [facility] Hemoglobin 16.0 13.8 - 17.3 g/dL 07/25/2023 10:54 [facility] HCT 45.7 39.5 - 50.2 % 07/25/2023 10:54 [facility] MCV 90 81 - 95 fL 07/25/2023 10:54 [facility] MCH 31.6 27.6 - 33.0 pg 07/25/2023 10:54 [facility] MCHC 35.0 32.8 - 36.4 g/dL 07/25/2023 10:54 [facility] RDW-CV 12.4 <14.2 % 07/25/2023 10:54 [facility] RDW-SD 41.1 <46.0 fl 07/25/2023 10:54 [facility] PLT 175 141 - 377 K/cmm 07/25/2023 10:54 [facility] MPV 11.3 9.5 - 12.7 fL 07/25/2023 10:54 [facility] % Neutrophils 58.7 % 07/25/2023 10:54 [facility] % Lymphocytes 31.2 % 07/25/2023 10:54 [facility] % Monocytes 7.9 % 07/25/2023 10:54 [facility] % Eosinophils 1.8 % 07/25/2023 10:54 [facility] % Basophils 0.4 % 07/25/2023 10:54 [facility] % Immature Grans 0.0 % 07/25/19 10:54 EDT [facility] Absolute Neutrophils 2.88 2.20 - 8.85 K/cmm 07/25/2023 10:54 EDT [facility] Absolute Lymphocytes 1.53 1.09 - 3.30 K/cm 07/25/2023 10:54 T [facility] Absolute Monocytes 0.39 0.10 - 0.80 K/cm 07/25/2023 10:54 T [facility] Absolute Eosinophils 0.09 0.03 - 0.61 K/cm 07/25/2023 10:54 T [facility] ABS Basophils 0.02 0.01 - 0.11 K/cm 07/25/2023 10:54 [facility] Absolute Immature Grans 0.00 0.00 - 0.06 K/cm 07/25/2023 10:54 [facility] Type of Differential: Auto 07/25/2023 10:54 [facility] Blood VENOUS BLOOD / Unknown Venipuncture / Unknown 07/25/2023 10:02 EDT 07/25/2023 10:49 EDT Riri Seymour MD PACKAGES & DNA P ROBE ORDERABLES [facility] [address] [place] [address] * (ABNORMAL) COMPREHENSIVE METABOLIC PANEL (CMP) (07/25/2023 10:02 EDT) Sodium 144 136 - 145 mmol/L 07/25/2023 11:22 [facility] Potassium 3.7 3.5 - 5.0 mmol/L 07/25/2023 11:22 [facility] Chloride 101 96 - 110 mmol/L 07/25/2023 11:22 [facility] CO2 Total 31 22 - 32 mmol/L 07/25/2023 11:22 [facility] Glucose 95 70 - 99 mg/dl 07/25/2023 11:22 [facility] BUN 15 10 - 26 mg/dL 07/25/2023 11:22 [facility] Creatinine 1.05 0.66 - 1.25 mg/dL 07/25/2023 11:22 [facility] eGFR 81 >60 mL/min/1.7 3m2 07/25/2023 11:22 [facility] Total Protein 7.8 6.3 - 8.2 g/dL 07/25/2023 11:22 [facility] Albumin 4.7 3.4 - 4.9 g/dL 07/25/2023 11:22 [facility] Alkaline Phosphatase 104 38 - 126 U/L 07/25/2023 11:22 [facility] AST 40 15 - 46 U/L 07/25/2023 11:22 [facility] ALT 54(H) <50 U/L 07/25/2023 11:22 [facility] Bilirubin, Total 0.7 <1.4 mg/dL 07/25/19 11:22 [facility] Calcium 9.4 8.5 - 10.5 mg/dL 07/25/2023 11:22 [facility] Albumin/Globulin Ratio 1.5 1.0 - 2.5 07/25/2023 11:22 [facility] Anion Gap 12 5 - 14 mmol/L 07/25/2023 11:22 [facility] Blood VENOUS BLOOD / Unknown Venipuncture / Unknown 07/25/2023 10:02 EDT 07/25/2023 10:49 EDT Riri Seymour MD CHEMISTRY & BLOO D GAS ORDERABLES [facility] [address] [place] [address] documented in this encounter Visit Diagnoses Diagnosis Ankylosing spondylitis, unspecified site of spine (HCC-CMS)- Primary At risk for side effect of medication documented in this encounter Discontinued Medications Medication Sig Discontinue Reason Start Date End Da te celecoxib (CELEBREX) 200 mg capsule TAKE ONE CAPSULE BY MOUTH EVERY DAY 11/10/2022 07/25/2023 DULoxetine (CYMBALTA) 30 mg delayed release capsule TAKE ONE CAPSULE BY MOUTH EVERY DAY 11/10/2022 07/25/2023 naproxen (NAPROSYN) 500 mg tablet TAKE ONE TABLET BY MOUTH TWICE A DAY NEEDED FOR PAIN 12/29/2020 07/25/2023 documented as of this encounter Care Teams [employer] Mechanical Relationship Specialty Start Date End Date Maureen Lua NP [address] [place] [address] PCP - General 11/06/20 documented as of this encounter
--- OUTSIDE RECORDS SUMMARY | 2023-11-02 04:05 | XMS_ITS | Encounter Summary ---
[place] [address] Care Team Providers Care Dam Tender Assistant Name Role Phone Maureen Lua APRN Primary Care Provider [phone] Reason for Visit * Reason Onset Date Comments Prior Authorization 11/17/2018 Encounter Details Date Type Department Care Team (Late st Contact Info) Description 11/17/2018 [place] [phone] Dariel Muhammad, bottle inspector Social History Tobacco Use Types Packs/Day Years Used Date Smoking Tobacco: Never Smokeless Tobacco: Never Sex and Gender Information Value Date Recorded Sex Assigned at Not on file Gender Identity Not on file Sexual Orientation Not on file documented as of this encounter Miscellaneous Notes * Telephone Encounter - Dariel Muhammad RN - 11/17/2018 12:17 PM EDT Call received from spouse Juanis asking for a PA for Indocin ER 75 mg as it is due. documented in this encounter Plan of Treatment Not on file documented as of this encounter Visit Diagnoses Not on filedocumented in this encounter Care Teams Dam Tender Assistant Relationship Specialty Start Date End Date Maureen Lua APRN [address] [place] [address] PCP - General Internal Medicine 08/18/18 documented as of this encounter
--- OUTSIDE RECORDS SUMMARY | 2023-11-02 04:05 | XMS_ITS | Encounter Summary ---
Author Organization [facility] [place] [address] Care Team Providers Care Certified Low Vision Therapist Name Role Phone Maureen Lua APRN Primary Care Provider [phone] Encounter Details Date Type Department Care Team (Late st Contact Info) Description 12/20/2018 5:55 PM EDT Ancillary Procedure Radiology Library at [facility] [place] [address] Ney Hickman MD [facility] [place] [address] Social History Tobacco Use Types Packs/Day Years [...] Diagnosis Comments FILM LIBRARY STORAGE ONLY MR SPINE Routine 12/20/2018 5:50 PM EDT documented in this encounter Results * Film Library- Storage Only MR Spine (12/20/2018 5:50 PM EDT) Narrative [facility] - 12/20/2018 5:50 PM EDT This exam is auto-finalizing. It's purpose is for storage only. Ney Hickman MD IMG FILM LIBRARY ORD ERABLES [place], [place] documented in this encounter Visit Diagnoses Not on filedocumented in this encounter Care Teams Certified Low Vision Therapist Relationship Specialty Start Date End Date Maureen Lua, DENTURE CONTOUR WIRE SPECIALIST [address] [place] [address] PCP - General Internal Medicine 08/18/18 documented as of this encounter
--- OUTSIDE RECORDS SUMMARY | 2023-11-02 04:05 | XMS_ITS | Encounter Summary ---
Author Organization [facility] Address [address] [place] [address] Care Team Providers Care Education Counselor Name Role Phone ChanellMaureen jimenez PURCHASING SUPERVISOR Primary Care Provider [phone] Reason for Visit * Reason Onset Date Comments Prior Auth, Medication 02/23/2023 Encounter Details Date Type Department Care Team (Late st Contact Info) Description 02/23/2023 Telephone [facility] Rheumatology & Immunology - [address] [phone] Riri Seymour MD [address] [place] [address], [address] [place] [address] Prior Auth, Medication Social History Tobacco Use [...] 1 ML INTO THE SKIN ONCE WEEKLY 12 mL 1 02/24/2023 03/10/2023 documented in this encounter Miscellaneous Notes * Telephone Encounter - Sobeida Syed RN - 02/24/2023 1439 EST Spoke with patient and advised we received PA for Enbrel that is good through 02/23/24. Refill sentto [facility]. Patient verbalized understanding and is agreeable to plan. * Telephone Encounter - Vero Kinsey - 02/23/2023 1638 EST Prior Authorization Approval Medication: Enbrel 50 mg SureClick q7d Insurance Name:[employer] Insurance Type: Medicare Part D Approval Dates: 03/07/2022 - 02/23/2024 Authorization Number: none Required Pharmacy: No requirement [facility] able to fill?: YES Additional Info/Other Notes: pt fills with [facility] [address] [facility] [address] [facility] [address] Prior Authorization Submission Process - Urgent Re-Auth Medication: Enbrel 50mg SureClick q7d Insurance: [employer] Insurance Type: Medicare Part D Date PA Request Received: 02/23/2023 PA Submission Date: 02/23/2023 CMM: [id number] Notes: Submitted by: Phone: [phone] * Telephone Encounter - Sobeida Syed RN - 02/23/2023 1429 EST Left voicemail for patient and spouse, Juanis. Advised PA is pending. Will reach out when we know more. * Telephone Encounter - Vanesa Vaz - 02/23/2023 0933 EST Patient calling to check on status of Prior auth for medication Enbrel . Please contact patient and advise documented in this encounter Plan of Treatment Upcoming Encounters Date Type Department Care Team (Late st Contact Info) Description 01/17/2024 9:00 EST Office Visit [facility] Rheumatology & Immunology [address] [phone] Butch Blair NP [address] [place] [phone] 07/26/2024 9:00 EDT Office Visit [facility] Rheumatology & Immunology [address] [phone] Riri Seymour MD [address] [place] [phone] documented as of this encounter Visit Diagnoses Not on filedocumented in this encounter Discontinued Medications Medication Sig Discontinue Reason Start Date End Da te ENBREL SURECLICK 50 mg/mL (1 mL) subcutaneous pen INJECT 50 MG UNDER THE SKIN ONCE WEEKLY Reorder 09/01/2022 02/24/2023 documented as of this encounter Care Teams Education Counselor Relationship Specialty Start Date End Date Maureen Lua NP [address] [place] [id number] PCP - General 11/06/20 documented as of this encounter
--- OUTSIDE RECORDS SUMMARY | 2023-11-02 04:05 | XMS_ITS | Encounter Summary ---
Author Organization [facility] Address [address] [place] [address] Care Team Providers Care Blanker Operator Name Role Phone Chanell Maureen García COMPACTING MACHINE OPERATOR/TENDER Primary Care Provider [phone] Reason for Visit * Reason Onset Date Comments Medication Management 09/14/2023 Labs Only 09/14/2023 Encounter Details Date Type Department Care Team (Late st Contact Info) Description 09/14/2023 Telephone [facility] Rheumatology & Immunology - [address] [phone] Riri Seymour MD [address] [facility], [address] [place] [address] Medication Management; Labs Only Social History Tobacco Use Types Packs/Day Years [...] Telephone Encounter - Alec Pelayo RN - 09/14/2023 1340 EDT Spoke with patient who is continuing to feel pain everywhere from -10/14, especially in bilateral hands, posterior neck to lower back. He's not sleeping at night and is tired during the day. Patient's recent labs, 08/31, are mostly in the normal range. His AST and ALT are slightly elevated,39 and 66. Recommended patient continue taking sulfasalazine as it may take 2-3 months to notice any improvement. He increased his dose to 3 tabs daily before having his labs checked. Should he wait to have hislabs done again every 3 months? Patient is looking for pain relief until the sulfasalazine begins to help. Please advise. * Telephone Encounter - Ira Ferrer - 09/14/2023 1130 EDT Patient is calling had labs done about two weeks ago. Patient looking to see if they could speak with someone to discuss or if they have come back. Patient also stating started new medication about amonth-month and a half ago and feeling like it's not working. Would like a call back to discuss. documented in this encounter Plan of Treatment Upcoming Encounters Date Type Department Care Team (Late st Contact Info) Description 01/17/2024 9:00 EST Office Visit [facility] Rheumatology & Immunology - [facility] [address], [place] [phone] Butch Blair NP [address] [facility], [address] [place] [phone] 07/26/2024 9:00 EDT Office Visit [facility] Rheumatology & Immunology - [facility] [address] [place] [address] Riri Seymour MD [address] [facility], [address] [place] [phone] documented as of this encounter Visit Diagnoses Not on filedocumented in this encounter Care Teams Blanker Operator Relationship Specialty Start Date End Date Maureen Lua NP [address] [place] [address] PCP - General 11/06/20 documented as of this encounter
--- OUTSIDE RECORDS SUMMARY | 2023-11-02 04:06 | XMS_ITS | Encounter Summary ---
Author Organization [facility] Address [address] [place] [address] Care Team Providers Care Malted Milk Masher Name Role Phone Olaf Sahni MD Primary Care Provider U Maureen Harris NP Primary Care Provider [phone] Encounter Details Date Type Department Care Team (Late st Contact Info) Description 08/29/2019 Lab Requisition [facility] Pathology & Laboratory Medicine - [address] [phone] Outr Resulting Lab, Provider Social History Tobacco Use Types Packs/Day Years Used Date Smoking Tobacco: Never Smokeless Tobacco: Former Quit: 09/15/1979 Alcohol Use Standard Drinks/Week Comments Yes 0 (1 standard drink = 0.6 oz pur e alcohol) very rarely Sex and Gender Information Value Date Recorded Sex Assigned at Not on file Gender Identity Male 11/06/2020 8:02 EDT Sexual Orientation Not on file documented as of this encounter Plan of Treatment Upcoming Encounters Date Type Department Care Team (Late Contact Info) Description 01/17/2024 9:00 EST Office Visit [facility] Rheumatology & Immunology [address] [phone] Butch Blair, SUPERVISOR [employer] [address] [place] [address], [address] [place] [address] 07/26/2024 9:00 EDT Office Visit [facility] Rheumatology & Immunology [address] [phone] Riri Seymour MD 111 [facility], [address] [place] [address] documented as of this encounter Procedures Procedure Name Priority Date/Time Associated Diagnosis Comments QUANTIFERON TB GOLD PLUS Routine 08/28/2019 9:00 EDT documented in this encounter Results * QUANTIFERON TB GOLD PLUS (08/28/2019 9:00 EDT) [facility] Quantiferon Interpretation Negative Negative 08/31/2019 13:36 EDT [facility] Comment: No interferon-gamma response to M. tuberculosis antigens was detected. ??Infection with M. tuberculosis is unlikely. A single negative result does not exclude infection with M. tuberculosis. ??In patients at high risk for M. tuberculosis infection, a second test should be considered in accordance with the 2017 ATS/IDSA/CDC Clinical Practice Guidelines for Diagnosis of Tuberculosis in Adults and Children. [Torrey TELLES et. al. Clin. Infect. Dis. 2017:64 (2) ??: 111-115]. Results were obtained with the Qiagen QuantiFERON TB Gold Plus JOHN. TB1 Ag minus Nil 0.00 IU/ml 08/31/19 20 13:36 EDT [facility] TB2 Ag minus Nil 0.00 IU/mL 08/31/19 20 13:36 EDT [facility] Blood VENOUS BLOOD / Unknown 08/28/2019 9:00 EDT 08/29/2019 16:17 EDT Narrative [facility] - 08/31/2019 13:36 EDT Results were obtained with the Qiagen QuantiFERON-TB Gold Plus JOHN. Provider Outr Resulting Lab CHEMISTRY & BLOOD GAS ORDERABLES [facility] [address] [place] [address] documented in this encounter Visit Diagnoses Not on filedocumented in this encounter Care Teams Malted Milk Masher Relationship Specialty Start Date End Date Olaf Sahni MD PCP - General 09/20/08 11/05/20 Maureen Lua NP [address] [place] [address] PCP - General 11/06/20 documented as of this encounter
--- OUTSIDE RECORDS SUMMARY | 2023-11-02 04:06 | XMS_ITS | Encounter Summary ---
Author Organization [facility] Address [address] [place] [address] Care Team Providers Care Forest Botany Instructor Name Role Phone Olaf Sahni MD Primary Care Provider U Maureen Harris NP Primary Care Provider Encounter Details Date Type Department Care Team (Late st Contact Info) Description 08/28/2019 Lab Requisition [facility] Pathology & Laboratory Medicine - [address] [phone] Outr Resulting Lab, Provider Social History Tobacco [...] 01/17/2024 9:00 EST Office Visit [facility] Rheumatology & Immunology [address] [phone] Butch Blair, FOUNTAIN JERK [address] [place] [address], [address] [place] [address] 07/26/2024 9:00 EDT Office Visit [facility] Rheumatology & Immunology [address] [phone] Riri Seymour MD 111 [facility], [address] [place] [phone] documented as of this encounter Procedures Procedure Name Priority Date/Time Associated Diagnosis Comments HIV 1/2 ANTIGEN AND ANTIBODY, 4TH GENERATION Routine 08/28/2019 9:00 EDT documented in this encounter Results * HIV 1/2 ANTIGEN AND ANTIBODY, 4TH GENERATION (08/28/2019 9:00 EDT) HIV 1 and 2 Antibody/p24 Antigen, 4th Generation Negative Negative 08/29/2019 10:46 EDT [facility] Comment: If acute HIV-1 infection is suspected in a high risk ??patient, submit plasma specimen for HIV-1 RNA quantitation test. Fourth Generation assay performed on the Siemens Centaur. Blood VENOUS BLOOD / Unknown 08/28/2019 9:00 EDT 08/28/2019 16:05 EDT Provider Outr Resulting Lab IMMUNOLOGY A ND SEROLOGY ORDERABLES [facility] [address] [place] [address] documented in this encounter Visit Diagnoses Not on filedocumented in this encounter Care Teams Forest Botany Instructor Relationship Specialty Start Date End Date Olaf Sahni MD PCP - General 09/20/08 11/05/20 Maureen Lua NP [address] [place] [address] PCP - General 11/06/20 documented as of this encounter
--- OUTSIDE RECORDS SUMMARY | 2023-11-02 04:06 | XMS_ITS | Encounter Summary ---
Author Organization [facility] Address [address] [place] [address] Care Team Providers Care Electronic Warfare Technical Name Role Phone Olaf Sahni MD Primary Care Provider U navailable Reason for Referral * Medication Prior Authorization (Routine) - Authorized Specialty Diagnoses / Procedures [facility] Referred To Contact Rheumatology Diagnoses Fibromyalgia Riri Seymour MD [address] [place] [address], [facility] [address] [place] [address] [place] [address] [address] [place] [address] Referral ID Status Reason Start Date Expiration Date Visits Requested Visits Authorized [id number] Authorized Medication Prior Authorization 09/04/2020 1 1 Question Answer Medication to be Prior Authorized: Lyrica 50mg one cap at bedtime ( new start) Comments The purpose of this consult request is to inform the scheduling staff that a medication needs to be prior-authorized before it is prescribed and/or administered. Encounter Details Date Type Department Care Team (Late st Contact Info) Description 09/04/2020 Orders Only [facility] Rheumatology & Immunology - [address] [address] Toshia Daly RN Fibromyalgia (Primary Dx) Social History Tobacco Use Types [...] as of this encounter Progress Notes * Toshia Daly RN - 09/04/2020 1002 EDT Prior auth placed for Lyrica caps. New start for fibromyalgia. documented in this encounter Plan of Treatment Upcoming Encounters Date Type Department Care Team (Late st Contact Info) Description 01/17/2024 9:00 EST Office Visit [facility] Rheumatology & Immunology [address] [phone] Butch Blair NP [address] [place] [phone] 07/26/2024 9:00 EDT Office Visit [facility] Rheumatology & Immunology [address] [phone] Riri Seymour MD [address] [place] [phone] Scheduled Referrals Name Type Priority Associated Diagnoses Order Schedule AMB MEDICATION PRIOR AUTHORIZATION Outpatient Referral Routine Fibromyalgia Ordered: 09/04/2020 documented as of this encounter Visit Diagnoses Diagnosis Fibromyalgia- Primary Mylagia and myositis, unspecified documented in this encounter Care Teams Electronic Warfare Technical Relationship Specialty Start Date End Date Olaf Sahni MD PCP - General 09/20/08 11/05/20 documented as of this encounter
--- OUTSIDE RECORDS SUMMARY | 2023-11-02 04:06 | XMS_ITS | Encounter Summary ---
Author Organization [facility] Address [address] [place] [address] Care Team Providers Care Mechanical Design Engineer Products Name Role Phone Maureen Lua DISC PAD GRINDER Primary Care Provider [phone] Reason for Visit * Reason Onset Date Comments Labs Only 10/14/2021 Follow-up 10/15/2021 Encounter Details Date Type Department Care Team (Late st Contact Info) Description 10/14/2021 Telephone [facility] Rheumatology & Immunology - [address] [phone] Riri Seymour MD 111 [facility], [address] [place] [address] Labs Only; Follow-up Social History Tobacco Use Types Packs/Day [...] Telephone Encounter - Sobeida Syed RN - 10/15/2021 0852 EDT LVM for Erasto asking that he go to [facility] and have creatinine drawn before MRI with contrast. Orderfaxed to [facility] and radiology made aware. * Telephone Encounter - Amelie Mendez - 10/15/2021 0818 EDT Tsering from diagnostic imaging calling to discuss creatinine draw. Patient is scheduled for an MRI with contrast today at 11:15. If patient needs new creatinine draw patient will require new orders by 9. Please call Tsering back to discuss. * Telephone Encounter - Carly Branch - 10/14/2021 0902 EDT Diagnostic imaging calling to see if patient needs new creatinine draw or if they can use the one from 07/09/21. Patient is having MRI with contrast. If previous results are sufficient a doctors signature is required. Or fax new order to [phone] Requesting this before the end of today. documented in this encounter Plan of Treatment Upcoming Encounters Date Type Department Care Team (Late st Contact Info) Description 01/17/2024 9:00 EST Office Visit [facility] Rheumatology & Immunology [address] [address] Butch Blair NP 111 [facility], [address] [place] [phone] 07/26/2024 9:00 EDT Office Visit [facility] Rheumatology & Immunology [facility] [address] [place] [address] Riri Seymour MD 111 [facility], [address] [place] [phone] documented as of this encounter Visit Diagnoses Diagnosis Spondyloarthritis- Primary Spondylosis of unspecified site without mention of myelopathy documented in this encounter Care Teams Mechanical Design Engineer Products Relationship Specialty Start Date End Date Maureen Lua NP [address] [place] [address] PCP - General 11/06/20 documented as of this encounter
--- OUTSIDE RECORDS SUMMARY | 2023-11-02 04:06 | XMS_ITS | Encounter Summary ---
Author Organization [facility] Address [address] [place] [address] Care Team Providers Care Roll Threader Operator Name Role Phone Maureen Lua PURIFYING PLANT OPERATOR Primary Care Provider [phone] Reason for Referral * Radiology Services (Routine/Next Available) - Authorization Not Required Specialty Diagnoses / Procedures Referred By Contac t Referred To Contact Diagnoses Spondyloarthritis Chronic back pain, unspecified back location, unspecified back pain laterality Procedures XR ENTIRE SPINE 2-3 VIEWS Riri Seymour MD [address] [place] [phone] [facility] Referral ID Status Reason Start Date Expiration Date Visits Requested Visits Authorized [id number] Authorization Not Required 10/08/2021 1 1 Reason for Visit * Radiology Services (Routine/Next Available) - Authorization Not Required Specialty Diagnoses / Procedures Referred By Deann t Referred To Contact Diagnoses Spondyloarthritis Chronic back pain, unspecified back location, unspecified back pain laterality Procedures XR ENTIRE SPINE 2-3 VIEWS Riri Seymour MD [address] [place] [phone] [facility] Referral ID Status Reason Start Date Expiration Date Visits Requested Visits Authorized [id number] Authorization Not Required 10/08/2021 1 1 Encounter Details Date Type Department Care Team (Latest Contact Info) Description 10/08/2021 12:47 EDT - 10/08/2021 23:59 EDT Hospital [facility] [place] [place] [address] Spondyloarthritis; Chronic back pain, unspecified back location, unspecified back pain laterality Discharge Disposition: Home or Self Care Social History Tobacco Use Types Packs/Day Years [...] Yes 08/29/2020 documented as of this encounter Medications at Time of Discharge Medication Sig Dispensed Refills Start Date End Date Aspirin 81 mg Tab Take 1 Tablet by mouth daily. Cholecalciferol, Vitamin D3, 50 mcg (2,000 unit) capsule Take 1 Capsule by mouth daily. cyanocobalamin (VITAMIN B-12) 1,000 mcg tablet Take 1 Tablet by mouth daily. cyanocobalamin (VITAMIN B12) 1,000 mcg/mL injection Inject 0.1 mL into the muscle every 28 days. dexlansoprazole (DEXILANT) 60 mg capsule Take 1 Capsule by mouth daily. folic acid (FOLVITE) 800 mcg tablet Take 1 Tablet by mouth daily. hydroCHLOROthiazide (HYDRODIURIL) 25 mg tablet Take 0.5 Tablets by mouth daily. hydrocodone-acetaminophe n (NORCO) 5-325 mg per tablet Take 1 Tablet by mouth every 4 hours as needed. MULTIVITAMIN ORAL Take 1 Tablet by mouth daily. simvastatin (ZOCOR) 40 mg tablet Take 1 Tablet by mouth daily. ENBREL SURECLICK 50 mg/mL (1 mL) subcutaneous pen INJECT 1ML UNDER THE SKIN ONCE A WEEK 12 mL 1 08/11/2021 03/09/2022 lisinopril (PRINIVIL, ZESTRIL) 5 mg tablet Take 10 mg by mouth daily. 07/05/2022 naproxen (NAPROSYN) 500 mg tablet TAKE ONE TABLET BY MOUTH TWICE A DAY NEEDED FOR PAIN 60 Tablet 3 12/29/2020 07/25/2023 documented as of this encounter Discharge Disposition Disposition Code Departure Means Destination Home or Self Care documented in this encounter Plan of Treatment Upcoming Encounters Date Type Department Care Team (Late st Contact Info) Description 01/17/2024 9:00 EST Office Visit [facility] Rheumatology & Immunology [address] [phone] Butch Blair NP [address] [place] [phone] 07/26/2024 9:00 EDT Office Visit [facility] Rheumatology & Immunology [address] [phone] Riri Seymour MD [address] [place] [phone] documented as of this encounter Procedures Procedure Name Priority Date/Time Associated Diagnosis Comments XR ENTIRE SPINE 2-3 VIEWS Routine 10/08/2021 13:15 EDT Spondyloarthritis Chronic back pain, unspecified back location, unspecified back pain laterality documented in this encounter Results * XR ENTIRE SPINE 2-3 VIEWS (10/08/2021 13:15 EDT) Anatomical Region Laterality Modality Spine Computed Radiogr aphy 10/08/2021 12:2 2 EDT Impressions 10/10/2021 18:02 EDT 1. Minimal endplate osteophyte formation in the cervical spine and thoracic spine 2. Ankylosis of the sacroiliac joints. THIS DOCUMENT HAS BEEN ELECTRONICALLY SIGNED BY NATO RAMIREZ MD FOR ANY QUESTIONS OR CONCERNS REGARDING THIS REPORT PLEASE CALL [facility] AT [phone] Narrative 10/10/2021 18:02 EDT PROCEDURE INFORMATION: Exam: XR Entire Spine, 2 or 3 Views, Scoliosis Exam date and time: 10/08/2021 1:03 PM Age: 60 years old Clinical indication: Other chronic pain; Spondylosis without myelopathy or radiculopathy, site unspecified; Dorsalgia, unspecified; Other: Please assess for syndesmophytes, shiny corners, pseudosquaring, erosions, patinet with history of spondyloarthritis. TECHNIQUE: Imaging protocol: XR of the entire spine, 2 or 3 views. Evaluation for scoliosis. COMPARISON: XR SACROILIAC JOINTS 3 OR MORE VIEWS 11/06/2020 8:36 AM FINDINGS: Vertebrae: Narrowed C2-C3 and C3-C4 cervical interspaces with endplate osteophyte formation. ??Minimal endplate osteophyte formation in the thoracic spine, best demonstrated on the frontal view. ??Slight thoracic curve, convex to the left at approximately 3 degrees. ??Ankylosis of the sacroiliac joints. ?? Soft tissues: Normal. Procedure Note Nato Ramirez MD - 10/10/2021 PROCEDURE INFORMATION: Exam: XR Entire Spine, 2 or 3 Views, Scoliosis Exam date and time: 10/08/2021 1:03 PM Age: 60 years old Clinical indication: Other chronic pain; Spondylosis without myelopathy or radiculopathy, site unspecified; Dorsalgia, unspecified; Other: Pleaseassess for syndesmophytes, shiny corners, pseudosquaring, erosions, patinet with history of spondyloarthritis. TECHNIQUE: Imaging protocol: XR of the entire spine, 2 or 3 views. Evaluation for scoliosis. COMPARISON: XR SACROILIAC JOINTS 3 OR MORE VIEWS 11/06/2020 8:36 AM FINDINGS: Vertebrae: Narrowed C2-C3 and C3-C4 cervical interspaces with endplate osteophyte formation. Minimal endplate osteophyte formation in thethoracic spine, best demonstrated on the frontal view. Slight thoracic curve,convex to the left at approximately 3 degrees. Ankylosis of the sacroiliac joints. Soft tissues: Normal. IMPRESSION 1. Minimal endplate osteophyte formation in the cervical spine andthoracic spine 2. Ankylosis of the sacroiliac joints. THIS DOCUMENT HAS BEEN ELECTRONICALLY SIGNED BY NATO RAMIREZ MD FOR ANY QUESTIONS OR CONCERNS REGARDING THIS REPORT PLEASE CALL [facility] [phone] Riri Seymour MD IMG DIAGNOSTIC I MAGING ORDERABLES documented in this encounter Visit Diagnoses Diagnosis Spondyloarthritis Spondylosis of unspecified site without mention of myelopathy Chronic back pain, unspecified back location, unspecified back pain laterality documented in this encounter Care Teams Roll Threader Operator Relationship Specialty Start Date End Date Maureen Lua NP [address] [place] [address] PCP - General 11/06/20 documented as of this encounter
--- OUTSIDE RECORDS SUMMARY | 2023-11-02 04:06 | XMS_ITS | Encounter Summary ---
Author Organization [facility] Address [address] [place] [id number] Care Team Providers Care Size Maker Name Role Phone ChanellMaureen jiemnez TURNAROUND ENGINEER Primary Care Provider [phone] Reason for Referral * Radiology Services (Routine/Next Available) - Authorization Not Required Specialty Diagnoses / Procedures Referred By Contac t Referred To Contact Diagnoses Left elbow pain Procedures XR ELBOW LEFT 3 OR MORE VIEWS Riri Seymour MD [address] [place] [phone] [facility] Referral ID Status Reason Start Date Expiration Date Visits Requested Visits Authorized [id number] Authorization Not Required 10/08/2021 1 1 * Radiology Services (Routine/Next Available) - Authorization Not Required Specialty Diagnoses / Procedures Referred By Contac t Referred To Contact Diagnoses Spondyloarthritis Chronic back pain, unspecified back location, unspecified back pain laterality Procedures XR ENTIRE SPINE 2-3 VIEWS Riri Seymour MD [address] [place] [phone] [facility] Referral ID Status Reason Start Date Expiration Date Visits Requested Visits Authorized [id number] Authorization Not Required 10/08/2021 1 1 Reason for Visit * Reason Comments Follow-up Fatigue Encounter Details Date Type Department Care Team (Late st Contact Info) Description 10/08/2021 11:40 EDT Office Visit [facility] Rheumatology & Immunology - [address] [id number] Riri Seymour MD [address] [place] [address], [address] [place] [address] Spondyloarthritis (Primary Dx); Chronic back pain, unspecified back location, unspecified back pain laterality; Elevated ferritin; Other disorders of iron metabolism ; Fibromyalgia; Left elbow pain; Vitamin D deficiency; Malaise and fatigue; Brain fog Social History Tobacco Use Types Packs/Day Years [...] Sign Reading Time Taken Comments Blood Pressure 136/78 10/08/2021 1149 EDT Pulse 51 10/08/2021 1149 EDT Temperature - - Respiratory Rate - - Oxygen Saturation - - Inhaled Oxygen Concentration - - Weight 66.2 kg (146 lb) 10/08/2021 1149 EDT Height 167.5 cm (5' 5.95) 10/08/2021 1149 EDT Body Mass Index 23.6 10/08/2021 1149 EDT documented in this encounter Functional Status [...] * Patient Instructions* Riri Seymour MD - 10/08/2021 11:40 EDT Labs X rays of spine. XR of left elbow Continue Enbrel. MR of left elbow. Referral to pool therapy Follow up 07/2022. Riri Seymour MD documented in this encounter Progress Notes * Riri Seymour MD - 10/08/2021 1140 EDT [facility] Department of Rheumatology Follow Up Visit PCP Maureen Lua 10/08/2021 History of Present Illness: Erasto Chapman Sr. is a 60 y.o. male with past medical history of ARGELIA/Ankylosing spondylitis, osteoporosis, hypertension, dyslipidemia, B12 deficiency, chronic pain syndrome, secondary OA, is here for a rheumatologic opinion.? Initially assessed 08/29/20: He reported he was [...] never subsided. He transferred his care to [place], he was switched to adalimumab, was on it for about 6 months and later secukinumab for less than 1 year and most recently in 05/2019 while under the care of at [facility], he was switched back to etanercept. ??He [...] well as continuing etanercept and follow up. ?? TODAY His main concern if fatigue. Brain fog is still the same. Does not wake up refreshed. He was supposed to wear a CPAP machine, but can't tolerate it. As far as pain, localizes his pain to arms, neck, mid back, lateral hips. Pain is constant. Sleeping at night, he feels as though he has a tooth ache over forearms. Denies significant lower back pain, knee or toe pain. Stopped Lyrica after 2.5 months and did not notice any change and discontinued it. Reports cough and shortness of breath for long time. He has had PFTs that reportedly have been normal. Denies fevers. Has had chest pain, intermittent, sharp, lasts about couple of hours at a time. Happens at random. Denies rashes, paresthesias. He remains on etanercept. Review of Systems: I have reviewed the systems reviewed by the nurse Past Medical History: Diagnosis Date ??? Arthritis ??? Hypercholesteremia ??? Hypertension ??? Osteoporosis ??? Vitamin B 12 deficiency Past Surgical History: Procedure Laterality Date ??? FOOT SURGERY 1980 Replaced joint in big toe Family History Problem Relation Age of Onset ??? Cancer Mother throat ca ??? Cancer Father prostate ??? Heart Disease Father OK at 54 ??? Heart Disease Brother at age 40 Social History Socioeconomic History ??? Marital status: Spouse name: Not on file ??? Number of children: Not on file ??? Years of education: Not on file ??? Highest education level: Not on file Occupational History ??? Not on file Tobacco Use ??? Smoking status: Never Smoker ??? Smokeless tobacco: Former User Types: Chew Vaping Use ??? Vaping Use: Never used [...] on file Social Connections: Not on file No Known Allergies Current [...] into the muscle every 28 days. ??? Dexlansoprazole (DEXILANT) 60 mg cap, multiphase delay release Take 60 mg by mouth daily. ??? ENBREL SURECLICK 50 mg/mL (1 mL) subcutaneous pen INJECT 1ML UNDER THE SKIN ONCE A WEEK ??? folic acid (FOLVITE) 800 mcg tablet Take 0.8 mg by mouth daily. ??? hydroCHLOROthiazide (HYDRODIURIL) 25 mg tablet Take 12.5 mg by mouth daily. ??? hydrocodone-acetaminophen (NORCO) 5-325 mg per tablet Take 1 Tab by mouth every 4 hours as needed. ??? lisinopril (PRINIVIL, ZESTRIL) 5 mg tablet Take 10 mg by mouth daily. (Patient not taking: Reported on 10/08/2021) ??? MULTIVITAMIN ORAL Take by mouth. ??? naproxen (NAPROSYN) 500 mg tablet TAKE ONE TABLET BY MOUTH TWICE A DAY NEEDED FOR PAIN (Patient not taking: Reported on 10/08/2021) ??? pregabalin (LYRICA) 50 mg capsule Take 1 capsule bedtime for 2 weeks, then increase to 2 capsules afterwards (Patient not taking: Reported on 10/08/2021) ??? simvastatin (ZOCOR) 40 mg tablet Take 40 mg by mouth daily. Physical exam: BP 136/78 (BP Cuff Location: Left arm, BP Patient Position: Sitting) Pulse 51 Ht 167.5 cm (65.95) Wt 66.2 kg (146 lb) BMI 23.60 kg/m?? HEENT: moist oral mucosa, no ulcers Neck: No lymphadenopathy CV: S1 and S2 audible, rhythmic, no murmurs or rubs Respiratory: breath sounds audible throughout, no crackles or wheezing Abdomen: Bowel sounds audible, soft to deep palpation, no hepatomegaly or splenomegaly Skin: no rashes MSK: Neck: Full ROM Wall to tragus 10 cm Shoulders: Full ROM, no tenderness or swelling Elbows:Full ROM, no tenderness or swelling Tenderness over left lateral epicondyle. Wrist:Full ROM, no tenderness or swelling Hand:Full ROM, no tenderness or swelling Lower back: modified Christina's 4 cm. Hip:Full ROM Knee:Full ROM, no tenderness or swelling Ankles: Full ROM, no tenderness or swelling Feet:Full ROM, no tenderness or swelling Laboratory testing: Labs ordered today Imaging: Ordered today RAPID3 SCORES AND INTERPRETATION 11/06/2020 10/08/2021 Functional Status 2.3 2.7 Pain Tolerance 7 6 Global Estimate 6 4 RAPID3 15.3 12.7 Interpretation High High Problem List: Patient Active Problem List Diagnosis ??? Hypertensive disorder ??? Cobalamin deficiency ??? Ankylosing spondylitis (HCC) Assessment Plan: # Ankylosing spondylitis. I discussed my impression with Erasto and his at our initial visit and previous follow up. He is on etanercept and other than perhaps his left epicondylitis, I don't see any disease activityat this visit. Will explore his elbow symptoms through x ray and MRI. Will obtain an entire spine x ray for new baseline. He will remain on etanercept. ?? # Osteoarthritis involving multiple joints. Ion findings of OA over hands, knees and feet. Discussed that some of this could be secondary to previous disease activity Discussed the importance of physical activity through structured PT. Can take naproxen 500 mg twicedaily as needed for pain. He has not PT yet, explained once again the potential benefits of the same. New referral made today. 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 He is on opioids as per his PCP. Did not find pregabalin helpful. Main health concern is fatigue. There is very little I can do to help that. Ordered vit D, TSH and B12. I have referred him to PT in hopes to help with this. Will defer any other work up or intervention to PCP. Would ensure he is up to date with age appropriate cancer screening. #elevated Ferritin in 500s without overt clinically active disease. HFE mutation testing ordered Plan: As outlined in patient's instructions Patient Instructions Labs X rays of spine. XR of left elbow Continue Enbrel. MR of left elbow. Referral to pool therapy Follow up 07/2022. Riri Seymour MD I spent a total of 40 minutes on the date of this encounter meeting with the patient and reviewing documentation/coordinating care as described in the above note. No procedures were performed at the time of the visit. Riri Seymour MD Department of Rheumatology Attending Physician Pager: [phone] documented in this encounter Plan of Treatment Upcoming Encounters Date Type Department Care Team (Late st Contact Info) Description 01/17/2024 9:00 EST Office Visit [facility] Rheumatology & Immunology [address] [address] Butch Blair NP [address] [place] [phone] 07/26/2024 9:00 EDT Office Visit [facility] Rheumatology & Immunology [address] [phone] Riri Seymour MD [address] [place] [phone] documented as of this encounter Results * TSH (10/08/2021 13:20 EDT) TSH 1.42 0.47 - 4.68 mIU/L 10/08/2021 15:03 EDT [facility] Blood VENOUS BLOOD / Unknown Venipuncture / Unknown 10/08/2021 13:20 EDT 10/08/2021 13:55 EDT Narrative [facility] - 10/08/2021 15:03 EDT The results of this assay can be falsely lowered due to the consumption of Biotin. Riri Seymour MD CHEMISTRY & BLOO D GAS ORDERABLES [facility] [address] [place] [address] * (ABNORMAL) VITAMIN B12 (10/08/2021 13:20 EDT) Vitamin B12 1,054(H) 211 - 911 pg/mL 10/08/2021 16:15 EDT [facility] Blood VENOUS BLOOD / Unknown Venipuncture / Unknown 10/08/2021 13:20 EDT 10/08/2021 13:55 EDT Riri Seymour MD CHEMISTRY & BLOO D GAS ORDERABLES Performing Organization Address [facility] Co de Phone Number [facility] [address] [place] [address] * VITAMIN D (25,OH) (10/08/2021 13:20 EDT) 25OH Vitamin D Tot 44 30 - 100 ng/mL 10/09/2021 10:58 EDT [facility] Comment: Vitamin D 25,OH Interpretive Ranges: Deficiency: ??<10.0 ng/mL Insufficiency: ??10.0 - 30.0 ng/mL Sufficiency: ??30.0 - 100.0 ng/mL Toxicity: ??>100.0 ng/mL Blood VENOUS BLOOD / Unknown Venipuncture / Unknown 10/08/2021 13:20 EDT 10/08/2021 13:55 EDT Riri Seymour MD CHEMISTRY & BLOO D GAS ORDERABLES [facility] [address] [place] [address] * HEREDITARY HEMOCHROMATOSIS HFE TEST (10/08/2021 13:20 EDT) Pathologist [facility] Result Summary SEE NOTE 10/12/2021 14:[address] [facility] Partschannel Comment:RESULT: COMPLEX (SEE RESULT AND INTERPRETATION) Result SEE NOTE 10/12/2021 14:22 [facility] Comment: C282Y: One copy of the C282Y variant was identified. H63D: One copy of the H63D variant was identified. S65C: Not detected. Interpretation SEE NOTE 10/12/2021 14:22 [facility] Comment: This result may be consistent with, but does not confirm a diagnosis of hereditary hemochromatosis (HH). Compound heterozygotes for C282Y/H63D have incomplete/low penetrance and are associated with increased hepatic iron concentrations. Approximately 0.5% to 2% of individuals with this genotype will develop clinical evidence of iron overload, however most will not develop clinical disease without comorbid factors (steatosis, diabetes, or excess alcohol consumption). This assay does not rule out the presence of other disease-causing variants in the HFE gene or in other genes associated with hemochromatosis. Penetrance of the genotype may be affected by ethnic background and coexisting comorbid and environmental factors. These results should be interpreted in the context of clinical findings, family history, and other laboratory testing (e.g. serum transferrin-iron saturation and serum ferritin). Genetic testing and other laboratory testing of an affected family member can determine if this result is of predictive value for this individual. Since variants have been identified, genetic testing and clinical evaluation of at risk family members may be considered. A genetic consultation may be of benefit. ADDITIONAL INFORMATION An online research opportunity called [employer] ([email or web address]), a project of [employer], is available for the recipient of this genetic test. This patient registry collects de-identified genetic and health information to advance the knowledge of genetic variants. [facility] is a collaborator of [employer]. This may not be applicable for all tests. Test results should be interpreted in the context of clinical findings, family history, and other laboratory data. Misinterpretation of results may occur if the information provided is inaccurate or incomplete. Rare polymorphisms exist that could lead to false-negative or false-positive results. If results obtained do not match the clinical findings, additional testing should be considered. Bone Marrow transplants from allogenic donors will interfere with testing. Call [facility] for instructions for testing patients who have received a bone marrow transplant. One or more in silico tools were used to assist in the interpretation of these results. These tools are updated regularly and predictions for a given variant may change. ?? Additionally, the predictability of these tools for the determination of pathogenicity is currently unvalidated. This test was developed and its performance characteristics determined by [facility] in a manner consistent with CLIA requirements. This test has not been cleared or approved by the U.S. Food and Drug Administration. Specimen WB Whole Blood 10/12/2021 14:22 EDT [facility] Source Not Reported 10/12/2021 14:22 EDT [facility] Method SEE NOTE 10/12/2021 14:22 EDT [facility] Comment: Droplet Digital Polymerase Chain Reaction (ddPCR) was used to test for the following three variants in the HFE gene; C282Y, H63D, and S65C. Because of the minimal effect on iron metabolism associated with the S65C variant, it is only reported when it is found with the C282Y variant (i.e. if the patient has the C282Y/S65C genotype). Released by Neema Cabrera, Ph.D. 10/12/2021 14:22 EDT [facility] Comment: Test Performed by: [address] [address] Salmon Troll Fisher: Vernon Moeller M.D. Ph.D.; CLIA# [id number] Blood VENOUS BLOOD / Unknown Venipuncture / Unknown 10/08/2021 13:20 EDT 10/08/2021 13:55 EDT Riri Seymour MD PACKAGES & DNA P ROBE ORDERABLES [address] [address] * SED RATE (10/08/2021 13:20 EDT) Sed Rate 2 0 - 20 mm/hr 10/08/2021 14:02 EDT [facility] Blood VENOUS BLOOD / Unknown Venipuncture / Unknown 10/08/2021 13:20 EDT 10/08/2021 13:55 EDT Riri Seymour MD HEMATOLOGY & PF4 ORDERABLES [facility] [address] [place] [address] * (ABNORMAL) C REACTIVE PROTEIN (10/08/2021 13:20 EDT) C-Reactive Protein 21.9(H) <10.0 mg/L 10/08/2021 14:31 EDT [facility] Blood VENOUS BLOOD / Unknown Venipuncture / Unknown 10/08/2021 13:20 EDT 10/08/2021 13:55 EDT Riri Seymour MD CHEMISTRY & BLOO D GAS ORDERABLES Performing Organization Address City/[facility]/ZIP Co de Phone Number [facility] [address] [place] [address] * XR ELBOW LEFT 3 OR MORE VIEWS (10/08/2021 13:15 EDT) Anatomical Region Laterality Modality Left Computed Radiogr aphy 10/08/2021 16:1 3 EDT Impressions 10/08/2021 16:13 EDT FINDINGS / IMPRESSION: * ??Lateral epicondylar enthesopathic changes which can be seen in the setting of tendinopathy or tearing of the common extensor tendon. * ??Olecranon enthesopathic changes. * ??no significant joint effusion. Narrative 10/08/2021 16:13 EDT EXAM/TECHNIQUE: 10/08/2021 12:55 PM ??XR ELBOW LEFT 3 OR MORE VIEWS 4 views ?? HISTORY: ??left epicondylitis, please assess for enthesopathic changes. Procedure Note Jay Salazar MD - 10/08/2021 EXAM/TECHNIQUE: 10/08/2021 12:55 PM XR ELBOW LEFT 3 OR MORE VIEWS 4 views HISTORY: left epicondylitis, please assess for enthesopathic changes. IMPRESSION FINDINGS / IMPRESSION: * Lateral epicondylar enthesopathic changes which can be seen in thesetting of tendinopathy or tearing of the common extensor tendon. * Olecranon enthesopathic changes. * no significant joint effusion. Riri Seymour MD IMG DIAGNOSTIC I MAGING ORDERABLES * XR ENTIRE SPINE 2-3 VIEWS (10/08/2021 [...] REGARDING THIS REPORT PLEASE CALL [facility] AT [phone] [facility] 10/10/2021 18:02 EDT PROCEDURE INFORMATION: Exam: XR [...] OR CONCERNS REGARDING THIS REPORT PLEASE CALL AD [phone] Riri Seymour MD IMG DIAGNOSTIC I MAGING ORDERABLES documented in this encounter Visit Diagnoses Diagnosis Spondyloarthritis- Primary Spondylosis of unspecified site without mention of myelopathy Chronic back pain, unspecified back location, unspecified back pain laterality Elevated ferritin Other abnormal blood chemistry 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 Fibromyalgia Mylagia and myositis, unspecified Left elbow pain Pain in joint, upper arm Vitamin D deficiency Unspecified vitamin D deficiency Malaise and fatigue Other malaise and fatigue Brain fog Spondyloarthritis Spondylosis of unspecified site without mention of myelopathy Chronic back pain, unspecified back location, unspecified back pain laterality Left elbow pain Pain in joint, upper arm documented in this encounter Discontinued Medications Medication Sig Discontinue Reason Start Date End Da te pregabalin (LYRICA) 50 mg capsule Take 1 capsule bedtime for 2 weeks, then increase to 2 capsules afterwards 03/03/2021 10/08/2021 documented as of this encounter Historical Medications * This list may reflect changes made after this encounter. Medication Sig Dispensed Refills Start Date End Date hydroCHLOROthiazide (HYDRODIURIL) 25 mg tablet Take 0.5 Tablets by mouth daily. added in this encounter Care Teams Size Maker Relationship Specialty Start Date End Date Maureen Lua NP [address] [place] [address] PCP - General 11/06/20 documented as of this encounter
--- OUTSIDE RECORDS SUMMARY | 2023-11-02 04:06 | XMS_ITS | Encounter Summary ---
Author Organization [facility] Address [address] [place] [address] Care Team Providers Care Orange Peel Operator Name Role Phone Olaf Sahni MD Primary Care Provider Gustavo aldana Encounter Details Date Type Department Care Team (Late st Contact Info) Description 06/19/2014 Orders Only [facility] Rheumatology Immunology [address] [phone] Ally Hicks[address] [address] Social History Tobacco Use Types Packs/Day Years [...] on file documented as of this encounter Ordered Prescriptions Prescription Sig Dispensed Refills Start Date End Da te etanercept (ENBREL) 50 mg/mL (0.98 mL) injection Inject 1 mL into the skin every 14 days 6 Syringe 1 06/19/2014 12/29/2020 documented in this encounter Plan of Treatment Upcoming Encounters Date Type Department Care Team (Late st Contact Info) Description 01/17/2024 9:00 EST Office Visit [facility] Rheumatology & Immunology [address] [phone] Butch Blair NP [address] [facility] [address] [place] [phone] 07/26/2024 9:00 EDT Office Visit [facility] Rheumatology & Immunology - [address] [address] Riri Seymour MD [address] [facility], [address] [place] [phone] documented as of this encounter Visit Diagnoses Not on filedocumented in this encounter Discontinued Medications Medication Sig Discontinue Reason Start Date End Da te etanercept (ENBREL) 50 mg/mL (0.98 mL) injectionIndications:An zoie spondylitis ([facility]) Inject 1 mL into the skin every 14 days Speciality pharmacy [facility] 06/12/2014 06/19/2014 documented as of this encounter Care Teams Orange Peel Operator Relationship Specialty Start Date End Date Olaf Sahni MD PCP - General 09/20/08 11/05/20 documented as of this encounter
--- OUTSIDE RECORDS SUMMARY | 2023-11-02 04:06 | XMS_ITS | Encounter Summary ---
Author Organization [facility] Address [address] [place] [address] Care Team Providers Care Quality Auditor Name Role Phone Olaf Sahni MD Primary Care Provider Gustavo aldana Reason for Visit * Reason Comments Follow-up ankylosing spondylit is Joint Pain hands, knees Encounter Details Date Type Department Care Team (Latest Contact Info) Description 09/14/2013 9:30 EDT Office Visit [facility] Rheumatology & Immunology - [address] [address] Ayaka Dash, PA-C [address] [place] [address] Ankylosing spondylitis ([facility]) (Primary Dx); Encounter for long-term (current) use of other medications Social History Tobacco Use Types Packs/Day Years [...] Sign Reading Time Taken Comments Blood Pressure 126/80 09/14/2013 0911 EDT Pulse 60 09/14/2013 0911 EDT Temperature - - Respiratory Rate - - Oxygen Saturation - - Inhaled Oxygen Concentration - - Weight 66.2 kg (146 lb) 09/14/2013 0911 EDT Height 168.3 cm (5' 6.25) 09/14/2013 0911 EDT Body Mass Index 23.39 09/14/2013 0911 EDT documented in this encounter Discharge Diagnoses Diagnosis 720.0 ANKYLOSING SPONDYLITIS[ICD-9-CM] V58.69 AFTERCARE FPC USE MEDICATN[ICD-9-CM] documented in this encounter Patient Instructions * Patient Instructions* Ayaka Menendez PA - 09/14/2013 9:39 EDT Please stop downstairs for labs today (2nd floor). Increase Meloxicam to 15 mg daily. Remember to take this with food to prevent stomach upset. Do nottake other anti-inflammatories (such as Ibuprofen, Advil or Aleve) with this. You can still take Tylenol as needed. Continue Enbrel every other week for now. In 1-2 weeks if your joint pain and stiffness doesn't getbetter on the higher dose of Meloxicam you can additionally increase Enbrel to once weekly. Follow up in 6 months, sooner as needed. documented in this encounter Ordered Prescriptions Prescription Sig Dispensed Refills Start Date End Da te etanercept (ENBREL) 50 mg/mL (0.98 mL) injectionIndications:Ank ylosing spondylitis ([facility]) Inject 1 mL into the skin every 7 days. 13 Syringe 1 09/14/2013 06/12/2014 meloxicam (MOBIC) 15 mg tablet Take 1 Tab by mouth daily. 90 Tab 3 09/14/2013 03/22/2014 documented in this encounter Progress Notes * Ayaka Menendez PA - 09/14/2013 0916 EDT Images from the original note were not included. Division of Rheumatology and Clinical Immunology Chief Complaint Patient presents with ??? Follow-up ankylosing spondylitis ??? Joint Pain hands, knees HPI: 52 year old male here for follow up of ankylosing spondylitis. Generally followed by Dr. Clancy although I have seen him once previously. Last seen in clinic ~6 months ago. Erasto continues on Enbrel which he takes every other week. Also Meloxicam (7.5 mg) daily. He saysthat he is not doing as well as previous. Having more pain and stiffness - particularly in his hands. Affected joints: Erasto says that his hands have been bothering him a lot lately. They ache and he has noticed a difference in the size of his knuckles. His knuckles seem to puff up but then settle back down after awhile. His symptoms are worse with increased use. 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 He has noticed that his hands feel better about 2 days after taking Enbrel but then can tell once it starts to wear off. This also affects his neck and back. He has actually been thinking about going back to once weekly dosing as he felt a lot betteron this in the past. Erasto has a longstanding history of bilateral knee pain for which he is followed by orthopedics. He says that he has bone on bone contact. His right knee is worse than the left. Symptoms aggravated by weight bearing activities. He had Synvisc injections bilaterally which helped for a short while. He's not interested in further injections. He just tries to deal with the pain. He's planning to hold off on surgery as long as possible. Additionally Erasto has chronic left foot pain related to a previous surgery. Apparently his toes are fused. This causes irritation if he walks too much. No recent changes. AM stiffness: Lasts 2-4 hours Physical activity: Stretches in the morning, tries to walk (~1 mile) every other night Employment: Disabled Functional Limitations: Bending, stooping, squatting, lifting Current Outpatient Prescriptions Medication Sig Dispense Refill ??? Aspirin 81 mg Tab Take 81 mg by mouth daily. ??? cyanocobalamin (VITAMIN B-12) 1,000 mcg tablet Take 1,000 mcg by mouth daily. ??? cyanocobalamin (VITAMIN B12) 1,000 mcg/mL injection Inject 100 mcg into the muscle every 28 days. ??? Dexlansoprazole (DEXILANT) 60 mg cap, multiphase delay release Take 60 mg by mouth daily. ??? etanercept (ENBREL) 50 mg/mL (0.98 mL) injection Inject 1 mL into the skin every 14 days. Tolerates ok without reported side effects. No recent infections. 6 Syringe 1 ??? hydrocodone-acetaminophen (NORCO) 5-325 mg per tablet Take 1 Tab by mouth every 4 hours as needed. Only as needed. Depends on activity level. On average 1 or 2 tabs per week. Mostly at night. Managed by PCP. ??? lisinopril (PRINIVIL, ZESTRIL) 5 mg tablet Take 5 mg by mouth daily. ??? meloxicam (MOBIC) 7.5 mg tablet Take 1 Tab by mouth daily. Tolerates ok without reported side effects. 90 Tab 3 ??? simvastatin (ZOCOR) 40 mg tablet Take 40 mg by mouth daily. Allergies include: Review of patient's allergies indicates no known allergies. Past Medical History Diagnosis Date ??? Arthritis ??? Hypertension ??? Hypercholesteremia ??? Vitamin B 12 deficiency ??? Osteoporosis Past Surgical History Procedure Laterality Date ??? Foot surgery 1979 Replaced joint in big toe Family History Problem Relation Age of Onset ??? Cancer Mother throat ca ??? Cancer Father prostate ??? Heart Disease Father [place] at 54 ??? Heart Disease Brother at age 40 History Social History ??? Marital Status: Occupational History ??? Disabled Social History Main Topics ??? Smoking status: Never Smoker ??? Smokeless tobacco: Former User Quit date: 09/15/1979 ??? Alcohol Use: Yes Comment: very rarely ??? Drug Use: Not on file REVIEW OF SYSTEMS: Yes No Yes No Fever x Joint pain x x Fatigue x Muscle pain x Night sweats x Morning stiffness x Weight change x If yes, duration 2-4 hours Gain or loss? Numbness/tingling x Eye discomfort x Headaches x Mouth/Nose sores x Muscle weakness x Chest pain x Burning on urination x Palpitations x Dark/bloody urine x Shortness of breath x Frequent urination x Cough x Trouble sleeping x Nausea/vomiting x Change in mood x Stomach pains/cramps x Nervous or anxious x Blood in stools x Sad or depressed x Diarrhea x Skin rash/changes x Constipation x Sun induced rash x Itching x Hand/Foot color change w/cold x Hair Loss x PHYSICAL EXAMINATION: Constitutional: Pleasant, well developed, well nourished male in no acute distress. BP 126/80 Pulse 60 Ht 168.3 cm (66.25) Wt 66.225 kg (146 lb) BMI 23.38 kg/m2 HEENT: PERRL, EOM's intact, no occular inflammation. Oropharynx clear, throat normal without erythema or exudate, no oral ulcers. No lymphadenopathy. RESPIRATORY: Clear to auscultation bilaterally; no adventitious sounds. CARDIOVASCULAR: Regular rate and rhythm, normal S1S2, no murmurs/gallops/rubs. SKIN: No rashes. NEUROLOGIC: Mental status normal. Gait normal without assistive device. Moves on/off exam table independently. Muscle strength intact and symmetric throughout except for right knee extension (3/5) which is limited by pain. MUSCULOSKELETAL: A complete msk exam including bilateral upper and lower extremities was done and was normal except for abnormal findings shown on homonculus. LABS: No visits with results within 6 months from this visit. Latest known visit with results is: Phlebotomy Only on 09/18/2012 Component Date Value ??? Total Alkaline Phosphata* 09/18/2012 90 ??? AST 09/18/2012 28 ??? ALT 09/18/2012 45 ??? Albumin 09/18/2012 4.6 ??? Creatinine 09/18/2012 0.93 ? ? GFR, Calculated 09/18/2012 >60 ??? Sed. Rate Westergren 09/18/2012 21* ??? WBC 09/18/2012 6.60 ??? RBC 09/18/2012 4.73 ??? Hemoglobin 09/18/2012 15.0 ??? HCT 09/18/2012 43.2 ??? MCV 09/18/2012 91 ??? MCH 09/18/2012 31.8 ??? MCHC 09/18/2012 34.8 ??? PLT 09/18/2012 172 ??? RDW-CV 09/18/2012 13.4 ??? Neutrophils 09/18/2012 65.5 ??? Lymphocytes 09/18/2012 24.3 ??? Monocytes 09/18/2012 8.4 ??? Eosinophils 09/18/2012 1.6 ??? Basophils 09/18/2012 0.2 ??? ABS Neutrophils 09/18/2012 4.33 ??? ABS Lymphs 09/18/2012 1.61 ??? ABS Monocytes 09/18/2012 0.55 ??? ABS Eosinophils 09/18/2012 0.11 ??? ABS Basophils 09/18/2012 0.02 ??? Type of Diff: 09/18/2012 Automated Imaging: None recent Diagnosis / Assessment: Ankylosing spondylitis. For the most part has been well controlled on Enbrel which he takes every 2weeks. However he is reporting more pain and stiffness as of late. This is mostly in his hands and seems to be use-related. His exam looks pretty good today (no synovitis). Although it sounds like his symptoms respond to Enbrel he also has obvious degenerative changes so I question how much underlying OA may be contributing? Will check inflammatory markers (sed rate) today to help assess disease activity. He is all ready on NSAID therapy - will start by maximizing this. If not effective plan toadjust Enbrel next. Encounter for m[facility] use of medication. Due for labs. Repeat every 6-12 months while on a TNF-inhibitor and NSAID therapy. Recommendations/Evaluation: 1. Labs (CBCD/DMARD profile/ESR) today. 2. Increase Meloxicam to 15 mg daily. Reminded Erasto to take with food to prevent GI upset and toavoid other anti-inflammatories while on this. 3. Continue Enbrel 50 mg SC every 14 days for now. If joint symptoms not improving within a few weeks on higher dose Meloxicam can increase Enbrel to 50 mg SC once weekly. 4. Follow up in 6 months, sooner as needed. Barriers to learning identified: No Patient verbalizes understanding and agrees with plan: Yes I was supervised by Dr. Piña who was in the suite and immediately available for the entire time the service was provided. BRANDY Sherwood 09/14/2013 9:23 documented in this encounter Plan of Treatment Upcoming Encounters Date Type Department Care Team (Late st Contact Info) Description 01/17/2024 9:00 EST Office Visit [facility] Rheumatology & Immunology - [address] [phone] Butch Blair NP [address] [place] [address], [address] [phone] 07/26/2024 9:00 EDT Office Visit [facility] Rheumatology & Immunology - [address] [address] Riri Seymour MD [address] [facility], [address] [phone] documented as of this encounter Visit Diagnoses Diagnosis Ankylosing spondylitis ([facility] Primary Ankylosing spondylitis Encounter for long-term (current) use of other medications documented in this encounter Discontinued Medications Medication Sig Discontinue Reason Start Date End Da te rabeprazole (ACIPHEX) 20 mg tablet Take 20 mg by mouth daily. 09/14/2013 meloxicam (MOBIC) 7.5 mg tabletIndications:Ankylos ing spondylitis ([facility]),Encounter for long-term (current) use of other medications Take 1 Tab by mouth daily. Dose adjustment 03/22/2013 09/14/2013 etanercept (ENBREL) 50 mg/mL (0.98 mL) injectionIndications:Anky losing spondylitis ([facility]) Inject 1 mL into the skin every 14 days. Reorder 09/04/2013 09/14/2013 documented as of this encounter Historical Medications * This list may reflect changes made after this encounter. Medication Sig Dispensed Refills Start Date End Date dexlansoprazole (DEXILANT) 60 mg capsule Take 1 Capsule by mouth daily. added in this encounter Care Teams Quality Auditor Relationship Specialty Start Date End Date Olaf Sahni MD PCP - General 09/20/08 11/05/20 documented as of this encounter
--- OUTSIDE RECORDS SUMMARY | 2023-11-02 04:06 | XMS_ITS | Encounter Summary ---
Author Organization [facility] Address [address] [place] [address] Care Team Providers Care Blow Pit Operator Name Role Phone Olaf Sahni MD Primary Care Provider Gustavo aldana Reason for Visit * Reason Onset Date Comments Medications Refill 06/12/2014 Encounter Details Date Type Department Care Team (Late st Contact Info) Description 06/12/2014 Refill [facility] Rheumatology & Immunology - [facility] [address] [place], [place] [phone] Ayaka Dash, PA-C [address] [place] [address] Medications Refill Social History Tobacco Use Types [...] etanercept (ENBREL) 50 mg/mL (0.98 mL) injectionIndications:An kylosing spondylitis ([facility]) Inject 1 mL into the skin every 14 days Speciality pharmacy 6 Syringe 1 06/12/2014 06/19/2014 documented in this encounter Miscellaneous Notes * Telephone Encounter - Alejandra Marinelliellen - 06/12/2014 1135 EDT Medication(s) Requested: Enbrel 50 mg/mL Pharmacy: [facility] Last Refill Date: 09.14.2013 Last Visit Date: 03.22.2014 Next Visit Date: 09/18/2014 Is patient out of medication? No, one left to be taken on this Tuesday Cate Marinelli 06/12/2014 11:35 documented in this encounter Plan of Treatment Upcoming Encounters Date Type Department Care Team (Late st Contact Info) Description 01/17/2024 9:00 EST Office Visit [facility] Rheumatology & Immunology [address] [phone] Butch Blair NP [address] [place] [phone] 07/26/2024 9:00 EDT Office Visit [facility] Rheumatology & Immunology [address] [phone] Riri Seymour MD [address] [place] [phone] documented as of this encounter Visit Diagnoses Diagnosis Ankylosing spondylitis ([facility]) Ankylosing spondylitis documented in this encounter Discontinued Medications Medication Sig Discontinue Reason Start Date End Da te etanercept (ENBREL) 50 mg/mL (0.98 mL) injectionIndications:Anky losing spondylitis ([facility]) Inject 1 mL into the skin every 7 days. Reorder 09/14/2013 06/12/2014 documented as of this encounter Care Teams Blow Pit Operator Relationship Specialty Start Date End Date Olaf Sahni MD PCP - General 09/20/08 11/05/20 documented as of this encounter
--- OUTSIDE RECORDS SUMMARY | 2023-11-02 04:06 | XMS_ITS | Encounter Summary ---
Author Organization [facility] Address [address] [place] [address] Care Team Providers Care Residue Furnace Operator Name Role Phone Olaf Sahni MD Primary Care Provider U Maureen Harris NP Primary Care Provider [phone] Encounter Details Date Type Department Care Team (Late st Contact Info) Description 04/10/2019 Lab Requisition [facility] Pathology & Laboratory Medicine [address] [phone] Unknown, Provider, Social History Tobacco Use Types Packs/Day Years [...] 01/17/2024 9:00 EST Office Visit [facility] Rheumatology & Immunology [address] [phone] Butch Blair, SHEAR OPERATOR HELPER [address] [facility], [address] [place] [phone] 07/26/2024 9:00 EDT Office Visit [facility] Rheumatology & Immunology [address] [address] Riri Seymour MD [address] [facility], [address] [place] [phone] documented as of this encounter Procedures Procedure Name Priority Date/Time Associated Diagnosis Comments HOLD SST Routine 04/10/2019 17:01 EST SYPHILIS SEROLOGY Routine 04/10/2019 10: 17 EST THYROID ANTIBODIES Routine 04/10/2019 10 :17 EST documented in this encounter Results * HOLD SST (04/10/2019 17:01 EST) Hold Hold 04/10/2019 18:15 EST [facility] Blood VENOUS BLOOD / Unknown 04/10/2019 17:01 EST 04/10/2019 17:01 EST Provider Unknown LAB INFO SERVICE AND SUPPORT & PHONE RESULT [facility] [address] [place] [address] * THYROID ANTIBODIES (04/10/2019 10:17 EST) Anti-Thyroglobulin <15 <=60 U/mL 2019 14:21 EST [facility] Thyroperoxidase Ab <28 <=60 U/mL 2019 14:21 EST [facility] Blood VENOUS BLOOD / Unknown 04/10/2019 10:17 EST 04/10/2019 17:01 EST Provider Unknown CHEMISTRY & BLOOD GA S ORDERABLES [facility] [address] [place] [address] * SYPHILIS SEROLOGY (04/10/2019 10:17 EST) Syphilis Serology Negative Negative 04/11/2019 10:52 EST [facility] Blood VENOUS BLOOD / Unknown 04/10/2019 10:17 EST 04/10/2019 17:01 EST Provider Unknown IMMUNOLOGY AND SERISAÍAS JIMENEZ ORDERABLES [facility] [address] [place] [address] documented in this encounter Visit Diagnoses Not on filedocumented in this encounter Care Teams Residue Furnace Operator Relationship Specialty Start Date End Date Olaf Sahni MD PCP - General 09/20/08 11/05/20 Maureen Lua NP [address] [place] [address] PCP - General 11/06/20 documented as of this encounter
--- OUTSIDE RECORDS SUMMARY | 2023-11-02 04:06 | XMS_ITS | Encounter Summary ---
Author Organization [facility] Address [address] [place] [address] Care Team Providers Care Government Contracts Manager Name Role Phone ChanellMaureen jimenez SPRINKLER INSPECTOR Primary Care Provider [phone] Reason for Referral * Radiology Services (Routine/Next Available) - Authorization Not Required Specialty Diagnoses / Procedures Referred By Contac t Referred To Contact Diagnoses Left elbow pain Procedures XR ELBOW LEFT 3 OR MORE VIEWS Riri Seymour MD [address] [place] [phone] [facility] Referral ID Status Reason Start Date Expiration Date Visits Requested Visits Authorized [id number] Authorization Not Required 10/08/2021 1 1 Reason for Visit * Radiology Services (Routine/Next Available) - Authorization Not Required Specialty Diagnoses / Procedures Referred By Deann bermudez Referred To Contact Diagnoses Left elbow pain Procedures XR ELBOW LEFT 3 OR MORE VIEWS Riri Seymour MD [address] [place] [phone] [facility] Referral ID Status Reason Start Date Expiration Date Visits Requested Visits Authorized [id number] Authorization Not Required 10/08/2021 1 1 Encounter Details Date Type Department Care Team (Latest Contact Info) Description 10/08/2021 12:47 EDT - 10/08/2021 23:59 EDT [facility] Radiology Xray Outpatient - [address] [address] Left elbow pain Discharge Disposition: Home or Self Care Social [...] Info) Description 01/17/2024 9:00 EST Office Visit [facility] Rheumatology & Immunology [address] [phone] Butch Blair NP [address] [place] [phone] 07/26/2024 9:00 EDT Office Visit [facility] Rheumatology & Immunology [address] [phone] Riri Seymour MD [address] [place] [phone] documented as of this encounter Procedures Procedure Name Priority Date/Time Associated Diagnosis Comments XR ELBOW LEFT 3 OR MORE VIEWS Routine 10/08/2021 13:15 EDT Left elbow pain documented in this encounter Results * XR ELBOW LEFT 3 OR MORE [...] documented in this encounter Visit Diagnoses Diagnosis Left elbow pain Pain in joint, upper arm documented in this encounter Care Teams Government Contracts Manager Relationship Specialty Start Date End Date Maureen Lua, SHEELA [address] [place] [address] PCP - General 11/06/20 documented as of this encounter
--- OUTSIDE RECORDS SUMMARY | 2023-11-02 04:06 | XMS_ITS | Encounter Summary ---
Author Organization [facility] Address [address] [place] [address] Care Team Providers Care Plant Attendant Or Assistant Operator Name Role Phone ChanellMaureen jimenez PROTECTION AGENT Primary Care Provider [phone] Reason for Visit * Reason Onset Date Comments Appointment Related 08/14/2021 Encounter Details Date Type Department Care Team (Late st Contact Info) Description 08/14/2021 Telephone [facility] Rheumatology & Immunology - [address] [phone] Riri Seymour MD [address] [place] [address], [address] [place] [phone] Appointment Related Social History Tobacco Use Types Packs/Day Years [...] encounter Miscellaneous Notes * Telephone Encounter - Dolores Eaton - 08/14/2021 1546 EDT FYI: Patient's is returning call from this clinic to check on an appt offered in voicemail message earlier today, 08/14/21. Group Home Paraprofessional has checked appts and no availability shown at the time of this call. Per caller, patient needs morning appts if another appt becomes available. documented in this encounter Plan of Treatment Upcoming Encounters Date Type Department Care Team (Late st Contact Info) Description 01/17/2024 9:00 EST Office Visit [facility] Rheumatology & Immunology [address] [address] Butch Blair NP [address] [place] [phone] 07/26/2024 9:00 EDT Office Visit [facility] Rheumatology & Immunology [address] [phone] Riri Seymour MD [address] [place] [phone] documented as of this encounter Visit Diagnoses Not on filedocumented in this encounter Care Teams Plant Attendant Or Assistant Operator Relationship Specialty Start Date End Date Maureen Lua NP [address] [place] [address] PCP - General 11/06/20 documented as of this encounter
--- OUTSIDE RECORDS SUMMARY | 2023-11-02 04:06 | XMS_ITS | Encounter Summary ---
Author Organization [facility] Address [address] [place] [address] Care Team Providers Care Regional Extension Service Specialist Name Role Phone Olaf Sahni MD Primary Care Provider U Maureen Harris NP Primary Care Provider [phone] Encounter Details Date Type Department Care Team (Late st Contact Info) Description 01/17/[address] [facility] Pathology & Laboratory Medicine [address] [phone] Unknown, Provider, Social History Tobacco Use Types [...] Info) Description 01/17/2024 9:[address] [facility] Rheumatology & Immunology [address] [phone] Butch Blair, TIE IN MACHINE OPERATOR [address] [facility], [address] [place] [phone] 07/26/2024 9:[address] [facility] Rheumatology & Immunology [address] [address] Riri Seymour MD [address] [facility], [address] [place] [phone] documented as of this encounter Procedures Procedure Name Priority Date/Time Associated Diagnosis Comments QUANTIFERON TB GOLD PLUS Routine 01/16/2019 8:43 EST documented in this encounter Results * QUANTIFERON TB GOLD PLUS (01/16/2019 8:43 EST) Pathologist [facility] Quantiferon Interpretation Negative Negative 01/19/2019 15:23 EST [facility] Comment: No interferon-gamma [...] JOHN. TB1 Ag minus Nil 0.00 IU/ml 01/20/20 19 15:23 EST [facility] TB2 Ag minus Nil 0.00 IU/mL 01/20/20 19 15:23 EST [facility] Blood VENOUS BLOOD / Unknown 01/16/2019 8:43 EST 01/17/2019 17:45 EST Narrative [facility] - 01/19/2019 15:23 EST Results were obtained with the [employer] QuantiFERON-TB Gold Plus JOHN. Provider Unknown CHEMISTRY & BLOOD GA S ORDERABLES [facility] [address] [place] [address] documented in this encounter Visit Diagnoses Not on filedocumented in this encounter Care Teams Regional Extension Service Specialist Relationship Specialty Start Date End Date Olaf Sahni MD PCP - General 09/20/08 11/05/20 Maureen Lua NP [address] [place] [address] PCP - General 11/06/20 documented as of this encounter
--- OUTSIDE RECORDS SUMMARY | 2023-11-02 04:06 | XMS_ITS | Encounter Summary ---
Author Organization [facility] Address [address] [place] [address] Care Team Providers Care House Painter Name Role Phone Maureen Lua AIR SHOVEL OPERATOR Primary Care Provider [phone] Reason for Visit * Reason Comments Follow-up Encounter Details Date Type Department Care Team (Late st Contact Info) Description 11/06/2020 9:20 EDT Office Visit [facility] Rheumatology & Immunology - [address] [id number] Riri Seymour MD [address] [place] [address], [address] [place] [phone] Chronic pain syndrome (Primary Dx); Primary osteoarthritis involving multiple joints; Ankylosing spondylitis, unspecified site of spine ([facility]) Social History Tobacco Use Types Packs/Day Years [...] Sign Reading Time Taken Comments Blood Pressure 100/62 11/06/2020 0908 EDT Pulse 64 11/06/2020 0908 EDT Temperature - - Respiratory Rate - - Oxygen Saturation - - Inhaled Oxygen Concentration - - Weight 66.2 kg (146 lb) 11/06/2020 0908 EDT Height - - Body Mass Index 23.6 08/29/2020 0840 EDT documented in this encounter Functional Status [...] * Patient Instructions* Riri Seymour MD - 11/06/2020 9:20 EDT Continue Lyrica, but increase to 150 mg bedtime. Continue naproxen, take 500 mg once daily, up to twice daily if needed Continue weekly Humira. Consider physical therapy when possible. Please let us know if your numbness over 4th and 5th digits worsens Follow up 05/2021. documented in this encounter Progress Notes * Riri Seymour MD - 11/06/2020 0920 EDT [facility] Department of Rheumatology Follow Up Visit PCP Maureen Lua 11/06/2020 History of Present Illness: Erasto Chapman . is a 60 y.o. male with past medical history of ARGELIA/Ankylosing spondylitis, osteoporosis, hypertension, dyslipidemia, B12 deficiency, chronic pain syndrome, secondary OA, is here for a rheumatologic opinion. ?? Initially assessed 08/29/20: He reported he was [...] never subsided. He transferred his care to [place], he was switched to adalimumab, was on it for about 6 months and later secukinumab for less than 1 year and most recently in 05/2019 while under the care of at [facility], he was switched back to etanercept. He does not think it is working as well as when he started it in early 1999s. He is using it once weekly. During our initial visit, we discussed that [...] well as continuing etanercept and follow up. TODAY: Did not start PT, caring for his mother. Taking pregabalin 100 mg bedtime. Takes naproxen as needed, thinks perhaps it works. Sleep has been improved, but not so much his pain. He mowed his lawn yesterday and his hands ached all night. Pain areas include neck, back and hands hands. Back pain is worse in AM. It is painful at the end of the end of the day depending on his activity.Morning pain is mainly over mid back and neck, not really lower back. Energy; low Denies chest pain, shortness of breath, rashes, paresthesias (other than over hands). His right hand numbness occurs occasionally over ulnar hands and 4th and 5th digits, about 3 times in the past 1 month. Last COVID-19 vaccine was 07/2020. Thinks he had a DXA scan through [facility] Review of Systems: I have reviewed the [...] Social Determinants of Health Financial Resource Strain: ??? Difficulty of Paying Living Expenses: Food Insecurity: ??? Worried About Running Out of Food in the Last Year: ??? Ran Out of Food in the Last Year: Transportation Needs: ??? Lack of Transportation (Medical): ??? Lack of Transportation (Non-Medical): Physical Activity: ??? Days of Exercise per Week: ??? Minutes of Exercise per Session: Stress: ??? Feeling of Stress : Social Connections: ??? Frequency of Communication with Friends and Family: ??? Frequency of Social Gatherings with Friends and Family: ??? Attends [employer] Services: ??? Active Member of Clubs or Organizations: ??? Attends Club or Organization Meetings: ??? Marital Status: No Known Allergies Current Outpatient Medications Medication [...] mL into the skin every 14 days (Patient taking differently: Inject 50 mg into the skin once a week. ) ??? folic acid (FOLVITE) 800 mcg tablet Take 0.8 mg by mouth daily. ??? hydrocodone-acetaminophen (NORCO) 5-325 mg per tablet Take 1 Tab by mouth every 4 hours as needed. ??? lisinopril (PRINIVIL, ZESTRIL) 5 mg tablet Take 10 mg by mouth daily. ??? MULTIVITAMIN ORAL Take by mouth. ??? naproxen (NAPROSYN) 500 mg tablet Take 1 tablet twice daily as needed for pain. ??? pregabalin (LYRICA) 50 mg capsule Take 1 capsule bedtime for 2 weeks, then increase to 2 capsules afterwards ??? simvastatin (ZOCOR) 40 mg tablet Take 40 mg by mouth daily. Physical exam: BP 100/62 (BP Cuff Location: Left arm, BP Patient Position: Sitting, BP Cuff Sizes: Adult, regular) Pulse 64 Wt 66.2 kg (146 lb) BMI 23.60 kg/m?? HEENT: moist oral mucosa, no ulcers Neck: No lymphadenopathy CV: S1 and S2 audible, rhythmic, no murmurs or rubs Respiratory: breath sounds audible throughout, no crackles or wheezing Abdomen: Bowel sounds audible, soft to deep palpation, no hepatomegaly or splenomegaly Skin: no rashes MSK: Neck: Full ROM Shoulders: Full ROM, no tenderness or swelling Pain with active abduction over right shoulder Neg empty can test. Elbows:Full ROM, no tenderness or swelling Wrist:Full ROM, no tenderness or swelling Hand:Full ROM, no tenderness or swelling Heberden and eric's Lower back:Full ROM Hip:Full ROM Knee:Full ROM, no tenderness or swelling Ankles: Full ROM, no tenderness or swelling Feet:Full ROM, no tenderness or swelling First MTP bony hypertrophy Laboratory testing: Component Latest Ref Rng & Units 09/29/2020 WBC, External 4.76 RBC, External 4.55 Hemoglobin, External 14.3 HCT, External 42.9 MCV, External 94.3 MCH, External 31.4 MCHC, External 33.3 PLT, External 172 RDW-CV, External 12.3 Neutrophils, External 52.0 Lymphocytes, External 35.9 Monocytes, External 8.6 Eosinophils, External 2.9 Basophils, External 0.4 ABS Neutrophils, External 2.47 ABS Lymphs, External 1.71 ABS Monocytes, External 0.41 ABS Eosinophils, External 0.14 ABS Basophils, External 0.02 GFR, Calculated, External >60 Glucose, Serum, External 107 Albumin, External 4.1 Alkaline Phosphatase, External 117 ALT, External 59 AST, External 36 BUN, External 17 Calcium, External 9.2 Chloride, External 107 CO2, External 31.2 Creatinine, External 1.2 Potassium, External 4.4 Sodium, External 145 Total Protein, External 7.2 Bilirubin, Total, External 0.5 C-Reactive Protein, External 0.07 Sed. Rate Westergren, External 2 Imaging: XR knees 11/06/2020 IMPRESSION FINDINGS / IMPRESSION: ?? Right knee: 3 views of the right knee show moderate tricompartmental degenerative changes. There isno sizable joint effusion. There is enthesopathic spurring on the superior and inferior margins of the patella. ?? Left knee: 3 views of the left knee show moderate tricompartmental degenerative changes. There is no sizable joint effusion. There is spurring on the superior and inferior margins of the patella. XR hands 11/06/2020 : IMPRESSION FINDINGS / IMPRESSION: ?? Left hand: PA and ball-catcher's views of the left hand show no fracture or malalignment. There arescattered mild degenerative changes, most notably second MCP joint. No erosions are identified in the bone mineralization is normal. ?? Right hand: PA and ball-catcher's views of the right hand show no fracture or malalignment. There are scattered mild degenerative changes without erosions seen. There is focal soft tissue swelling along the radial aspect of the second PIP joint. XR SI joints: ?? IMPRESSION FINDINGS / IMPRESSION: 3 views of the sacroiliac joints demonstrate advanced arthritic changes at both SI joints with partial bony ankylosis across the articulations. RAPID3 SCORES AND INTERPRETATION 11/06/2020 Functional Status 2.3 Pain Tolerance 7 Global Estimate 6 RAPID3 15.3 Interpretation High Problem List: Patient Active Problem List Diagnosis ??? Hypertensive disorder ??? Cobalamin deficiency ??? Ankylosing spondylitis ([facility]) Assessment Plan: # Ankylosing spondylitis. I discussed my impression with Erasto and his at our initial visit. Agree with Dr. Hickman's latest assessment that there does not appear to be active disease. Peripheral joint exam does not support synovitis. Axial symptoms are harder to assess on exam, but Fabere's was negative and his history supports mechanical back pain (worse with activity, no prominent stiffness in AM, compared to the rest of his body). I did not proceed with MR SI joints at our initial visit, but may consider it in the future. He last had one at [facility] in 2019 and per notes, did not support active sacroiliitis (he does have evidence of fusion, from previous disease activity) Will remain on etanercept. ?? # Osteoarthritis involving multiple joints. Discussed that he has findings of OA over hands, knees and feet. Discussed that some of this could be secondary to previous disease activity Discussed the importance of physical activity through structured PT. Can take naproxen 500 mg twicedaily as needed for pain. 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 ?? 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 He is on opioids as per his PCP. I have suggested low dose pregabalin and he did start it. Will optimize dose today. He is aware that if he develops worsening brain fot, he should decrease the dose back to 100 mg daily. Recommended paced physical therapy/pool therapy (though not feasible at present) Recommended addressing sleep apnea will be ojeda in pain processing. ?? # Brain fog/memory concerns Has been referred to the memory center by his PCP ?? # Osteoporosis To be addressed at follow up Plan: Consider Thoracic and C spine x rays at follow up As outlined in patient's instructions . Patient Instructions Continue Lyrica, but increase to 150 mg bedtime. Continue naproxen, take 500 mg once daily, up to twice daily if needed Continue weekly Humira. Consider physical therapy when possible. Please let us know if your numbness over 4th and 5th digits worsens Follow up 05/2021. I spent a total of 40 minutes on the date of this encounter meeting with the patient and reviewing documentation/coordinating care as described in the above note. No procedures were performed at the time of the visit. Riri Seymour MD Department of Rheumatology Attending Physician Pager: [phone] documented in this encounter Plan of Treatment Upcoming Encounters Date Type Department Care Team (Late st Contact Info) Description 01/17/2024 9:00 EST Office Visit [facility] Rheumatology & Immunology [address] [phone] Butch Blair NP [address] [place] [phone] 07/26/2024 9:00 EDT Office Visit [facility] Rheumatology & Immunology [address] [phone] Riri Seymour MD [address] [place] [phone] documented as of this encounter Visit Diagnoses Diagnosis Chronic pain syndrome- Primary Primary osteoarthritis involving multiple joints Ankylosing spondylitis, unspecified site of spine ([facility]) documented in this encounter Care Teams House Painter Relationship Specialty Start Date End Date Maureen Lua NP [address] [place] [address] PCP - General 11/06/20 documented as of this encounter
--- OUTSIDE RECORDS SUMMARY | 2023-11-02 04:06 | XMS_ITS | Encounter Summary ---
Author Organization [facility] Address [address] [place] [address] Care Team Providers Care Booth Usher Name Role Phone Maureen Lua MOVEMENT ASSEMBLY FINAL INSPECTOR Primary Care Provider [phone] Reason for Visit * (Routine/Next Available) - Receiving Office to Obtain Authorization Specialty Diagnoses / Procedures Referred By Deann bermudez Referred To Contact Procedures MR OUTSIDE IMAGES MSK Imaging, External Referral ID Status Reason Start Date Expiration Date Visits Requested Visits Authorized [id number] Receiving Office to Obtain Authorization 10/16/2021 1 1 Encounter Details Date Type Department Care Team (Latest Contact Info) Description 10/15/2021 - 10/15/2021 23:59 EDT Hospital Encounter [facility] Center Secondary Reads [place] Discharge Disposition: Home or Self Care Social [...] Office Visit [facility] Rheumatology & Immunology [address] [phone] Butch Blair NP [address] [facility], [address] [place] [phone] 07/26/2024 9:00 EDT Office Visit [facility] Rheumatology & Immunology [address] [phone] Riri Seymour MD [address] [facility], [address] [place] [phone] documented as of this encounter Procedures Procedure Name Priority Date/Time Associated Diagnosis Comments MR OUTSIDE IMAGES MSK Routine 10/16/2021 7:29 EDT documented in this encounter Results * MR OUTSIDE IMAGES MSK (10/16/2021 7:29 EDT) Narrative 10/16/2021 7:29 EDT This is a non-reportable exam. External Imaging IMG OTHER IMAGING OR DERABLES documented in this encounter Visit Diagnoses Not on filedocumented in this encounter Care Teams Booth Usher Relationship Specialty Start Date End Date Maureen Lua NP [address] [place] [id number] PCP - General 11/06/20 documented as of this encounter
--- OUTSIDE RECORDS SUMMARY | 2023-11-02 04:06 | XMS_ITS | Encounter Summary ---
Author Organization [facility] Address [address] [place] [address] Care Team Providers Care Air Pollution Inspector Name Role Phone Maureen Lua SOIL ENGINEER Primary Care Provider [phone] Reason for Visit * Reason Onset Date Comments Medications Refill 02/12/2021 Encounter Details Date Type Department Care Team (Late st Contact Info) Description 02/12/2021 Telephone [facility] Rheumatology & Immunology - [address] [phone] Riri Seymour MD [address] [place] [address], [address] [place] [address] Medications Refill Social History Tobacco [...] SURECLICK) 50 mg/mL (1 mL) subcutaneous pen Inject 1 mL into the skin once a week. Dispense pen instead of pre-filled syringe 12 mL 1 02/12/2021 08/11/2021 documented in this encounter Miscellaneous Notes * Telephone Encounter - Kathleen Ferrer RN - 02/12/2021 1133 EST [facility]. Confirmed he has been getting his Enbrel there. Report he would like the Enbrel Sureclick instead of the pre-filled syringe. They are unaware if a prior authorization is needed. Confirmed they will call if it does. She has no further questions or concerns at this time. New script sent to pharmacy for sureclick. * Telephone Encounter - Soheila Washburn - 02/12/2021 1106 EST Medication(s) Requested: Enbrel Sureclick Auto injector - not seeing this on medication list Pharmacy: [facility] Next Visit Date 05/07/2021 Last Office Visit11/06/2020 Out of Medication? NO Has pharmacy benefit insurance changed No If anything changed please list here Soheila Washburn 02/12/2021 11:06 documented in this encounter Plan of Treatment Upcoming Encounters Date Type Department Care Team (Late st Contact Info) Description 01/17/2024 9:00 EST Office Visit [facility] Rheumatology & Immunology [address] [phone] Butch Blair NP [address] [facility], [address] [place] [phone] 07/26/2024 9:00 EDT Office Visit [facility] Rheumatology & Immunology [facility] [address] [place], [place] [address] Riri Seymour MD [address] [facility], [address] [place] [address] documented as of this encounter Visit Diagnoses Not on filedocumented in this encounter Discontinued Medications Medication Sig Discontinue Reason Start Date End Da te etanercept (ENBREL) 50 mg/mL (1 mL) injection Inject 1 mL into the skin once a week. Duplicate order 12/29/2020 02/12/2021 documented as of this encounter Care Teams Air Pollution Inspector Relationship Specialty Start Date End Date Maureen Lua NP [address] [place] [phone] PCP - General 11/06/20 documented as of this encounter
--- OUTSIDE RECORDS SUMMARY | 2023-11-02 04:06 | XMS_ITS | Encounter Summary ---
Author Organization [facility] Address [address] [place] [address] Care Team Providers Care Supervisor [employer] Name Role Phone Chanell Maureen García BLOOD BANK TECHNICIAN Primary Care Provider [phone] Encounter Details Date Type Department Care Team (Late st Contact Info) Description 10/08/2021 13:30 EDT Phlebotomy Only [facility] 2 Phlebotomy [address] [place], [place] [phone] Product Finisher, [facility] Phlebotomy Spondyloarthritis; Elevated ferritin; Other disorders of iron metabolism ; Vitamin D deficiency; Malaise and fatigue; Brain [...] 01/17/2024 9:00 EST Office Visit [facility] Rheumatology & Immunology [address] [phone] Butch Blair NP 111 [facility] 5 [place] [phone] 07/26/2024 9:00 EDT Office Visit [facility] Rheumatology & Immunology [address] [phone] Riri Seymour MD [address] [place] [phone] documented as of this encounter Procedures Procedure Name Priority Date/Time Associated Diagnosis Comments HEREDITARY HEMOCHROMATOSIS HFE TEST Routine 10/08/2021 13:20 EDT Elevated ferritin Other disorders of iron metabolism VITAMIN D (25,OH) Routine 10/08/2021 13: 20 EDT Vitamin D deficiency SED RATE Routine 10/08/2021 13:20 EDT Spondyloarthritis Elevated ferritin C REACTIVE PROTEIN Routine 10/08/2021 13 :20 EDT Spondyloarthritis Elevated ferritin TSH Routine 10/08/2021 13:20 EDT Malaise and fatigue Brain fog VITAMIN B12 Routine 10/08/2021 13:20 EDT Malaise and fatigue Brain fog documented in this encounter Results * TSH (10/08/2021 13:20 EDT) TSH 1.42 0.47 - 4.68 mIU/L 10/08/2021 15:03 EDT [facility] Blood VENOUS BLOOD / Unknown Venipuncture / Unknown 10/08/2021 13:20 EDT 10/08/2021 13:55 EDT Narrative [facility] - 10/08/2021 15:03 EDT The results of this assay can be falsely lowered due to the consumption of Biotin. Riri Seymour MD CHEMISTRY & BLOO D GAS ORDERABLES Performing Organization Address [facility] Co de Phone Number [facility] [address] [place] [address] * (ABNORMAL) VITAMIN B12 (10/08/2021 13:20 EDT) Vitamin B12 1,054(H) 211 - 911 pg/mL 10/08/2021 16:15 EDT [facility] Blood VENOUS BLOOD / Unknown Venipuncture / Unknown 10/08/2021 13:20 EDT 10/08/2021 13:55 EDT Riri Seymour MD CHEMISTRY & BLOO D GAS ORDERABLES Performing Organization Address [facility] Co de Phone Number [facility] [address] [place] [address] * VITAMIN D (25,OH) (10/08/2021 13:20 EDT) 25OH Vitamin D Tot 44 30 - 100 ng/mL 10/09/2021 10:58 EDT [facility] Comment: Vitamin D 25,OH Interpretive Ranges: Deficiency: ??<10.0 ng/mL Insufficiency: ??10.0 - 30.0 ng/mL Sufficiency: ??30.0 - 100.0 ng/mL Toxicity: ??>100.0 ng/mL Blood VENOUS BLOOD / Unknown Venipuncture / Unknown 10/08/2021 13:20 EDT 10/08/2021 13:55 EDT Riri Seymour MD CHEMISTRY & BLOO D GAS ORDERABLES [facility] [address] [place] [address] * HEREDITARY HEMOCHROMATOSIS HFE TEST (10/08/2021 13:20 EDT) Result Summary SEE NOTE 10/12/2021 14:22 EDT [facility] Comment:RESULT: COMPLEX (SEE RESULT AND INTERPRETATION) Result SEE NOTE 10/12/2021 14:22 EDT [facility] Comment: C282Y: One copy of the C282Y variant was identified. H63D: One copy of the H63D variant was identified. S65C: Not detected. Interpretation SEE NOTE 10/12/2021 14:22 EDT [facility] Comment: This result may be consistent with, [...] ADDITIONAL INFORMATION An online research opportunity called [employer] ([email or web address]), a project of [employer], is available for the recipient of this genetic test. This patient registry collects de-identified genetic and health information to advance the knowledge of genetic variants. [facility] is a collaborator of [employer]. This may not be applicable for all [...] allogenic donors will interfere with testing. Call [facility] for instructions for testing patients who [...] developed and its performance characteristics determined by [facility] in a manner consistent with CLIA requirements. This test has not been cleared or approved by the U.S. Food and Drug Administration. Specimen WB Whole Blood 10/12/2021 14:22 EDT [facility] Source Not Reported 10/12/2021 14:22 EDT [facility] Method SEE NOTE 10/12/2021 14:22 EDT [facility] Comment: Droplet Digital Polymerase Chain Reaction (ddPCR) [...] by Neema Cabrera, Ph.D. 10/12/2021 14:22 EDT [facility] Comment: Test Performed by: [address] [address] Inspector Handbag Frames: Vernon Moeller M.D. Ph.D.; CLIA# [id number] Blood VENOUS BLOOD / Unknown Venipuncture / Unknown 10/08/2021 13:20 EDT 10/08/2021 13:55 EDT Riri Seymour MD PACKAGES & DNA P GORGE ORDERABLES [address] [address] * SED RATE (10/08/2021 13:20 EDT) Sed Rate 2 0 - 20 mm/hr 10/08/2021 14:02 EDT [facility] Blood VENOUS BLOOD / Unknown Venipuncture / Unknown 10/08/2021 13:20 EDT 10/08/2021 13:55 EDT Riri Seymour MD HEMATOLOGY & PF4 ORDERABLES Performing Organization Address City/[facility]/ZIP Co de Phone Number [facility] [address] [place] [address] * (ABNORMAL) C REACTIVE PROTEIN (10/08/2021 13:20 EDT) C-Reactive Protein 21.9(H) <10.0 mg/L 10/08/2021 14:31 EDT [facility] Blood VENOUS BLOOD / Unknown Venipuncture / Unknown 10/08/2021 13:20 EDT 10/08/2021 13:55 EDT Riri Seymour MD CHEMISTRY & BLOO D GAS ORDERABLES Performing Organization Address City/[facility]/ZIP Co de Phone Number [facility] [address] [place] [phone] documented in this encounter Visit Diagnoses Diagnosis Spondyloarthritis Spondylosis of unspecified site without mention of myelopathy Elevated ferritin Other abnormal blood chemistry 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 Vitamin D deficiency Unspecified vitamin D deficiency Malaise and fatigue Other malaise and fatigue Brain fog documented in this encounter Care Teams Supervisor [employer] Relationship Specialty Start Date End Date Maureen Lua NP [address] [place] [address] PCP - General 11/06/20 documented as of this encounter
--- OUTSIDE RECORDS SUMMARY | 2023-11-02 04:06 | XMS_ITS | Encounter Summary ---
Author Organization [facility] Address [address] [place] [address] Care Team Providers Care Knotting Machine Operator Portable Name Role Phone Olaf Sahni MD Primary Care Provider Gustavo aldana Reason for Visit * Reason Onset Date Comments Medications Refill 12/17/2013 Encounter Details Date Type Department Care Team (Late st Contact Info) Description 12/17/2013 Refill [facility] Rheumatology & Immunology - [facility] [address] [place], [place] [address] Ayaka Dash, PA-C [address] [place] [address] Medications Refill Social History Tobacco Use Types [...] encounter Miscellaneous Notes * Telephone Encounter - Thea Unger - 12/17/2013 1152 EDT Medication(s) Requested: Enbrel 50 mg/ml - Inject 1 ml every 10 days per Juanis, . Pharmacy: [facility] [phone] Last Refill Date: 09.14.2013 Last Visit Date: 09.14.2013 Next Visit Date: 03/22/2014 Is patient out of medication? YES - Per Juanis, he did last shot yesterday. Juanis made aware nursehas up to 48 hrs to call script in and to please call pharmacy prior to pick pulling machine tender. Please call Jaylyn any questions/concerns. Thea Unger 12/17/2013 11:52 documented in this encounter Plan of Treatment Upcoming Encounters Date Type Department Care Team (Late st Contact Info) Description 01/17/2024 9:00 EST Office Visit [facility] Rheumatology & Immunology [address] [phone] uBtch Blair NP [address] [place] [phone] 07/26/2024 9:00 EDT Office Visit [facility] Rheumatology & Immunology [address] [phone] Riri Seymour MD [address] [place] [phone] documented as of this encounter Visit Diagnoses Diagnosis Ankylosing spondylitis ([facility])- Primary Ankylosing spondylitis documented in this encounter Care Teams Knotting Machine Operator Portable Relationship Specialty Start Date End Date Olaf Sahni MD PCP - General 09/20/08 11/05/20 documented as of this encounter
--- OUTSIDE RECORDS SUMMARY | 2023-11-02 04:06 | XMS_ITS | Encounter Summary ---
Author Organization [facility] Address [address] [place] [address] Care Team Providers Care Medical Device Sales Representative Name Role Phone Olaf Sahni MD Primary Care Provider U Maureen Harris NP Primary Care Provider [phone] Encounter Details Date Type Department Care Team (Late st Contact Info) Description 08/28/2019 Lab Requisition [facility] Pathology & Laboratory Medicine - [address] [phone] Outr Resulting Lab, Provider Social History Tobacco [...] Info) Description 01/17/2024 9:00 EST Office Visit [facility] Rheumatology & Immunology [address] [phone] Butch Blair, REPAIRER TYPEWRITER [address] [place] [address], [address] [place] [address] 07/26/2024 9:00 EDT Office Visit [facility] Rheumatology & Immunology [address] [phone] Riri Seymour MD [address] [facility], [address] [place] [address] documented as of this encounter Procedures Procedure Name Priority Date/Time Associated Diagnosis Comments HEPATITIS C AB W REFLEX TO HCV RNA BY PCR Routine 08/28/2019 9:00 EDT HEPATITIS B SURFACE ANTIBODY Routine 08/28/2019 9:00 EDT documented in this encounter Results * HEPATITIS B SURFACE ANTIBODY (08/28/2019 9:00 EDT) Hep B Surface Ab, Quantitative <3.1 See Note mIU/mL 08/29/2019 9:35 EDT [facility] Comment: Reference Range for Hep B Surface Ab, Quant: Positive: >= 10.0 mIU/mL Negative: ??< 10.0 mIU/mL Patient is presumed to not be immune to infection with Hepatitis B Virus. Hep B Surface Ab, Qualitative Negative See Note 08/29/2019 9:35 EDT [facility] Comment: Reference Range for Hep B Surface Ab, Qual: Unvaccinated: ??Negative Vaccinated: ??Positive Blood VENOUS BLOOD / Unknown 08/28/2019 9:00 EDT 08/28/2019 16:05 EDT Provider Outr Resulting Lab CHEMISTRY & BLOOD GAS ORDERABLES Performing Organization Address [facility] Co de Phone Number [facility] [address] [place] [address] * HEPATITIS C AB W REFLEX TO HCV RNA BY PCR (08/28/2019 9:00 EDT) Hep C Antibody Negative Negative 08/29/2019 10:46 EDT [facility] Blood VENOUS BLOOD / Unknown 08/28/2019 9:00 EDT 08/28/2019 16:05 EDT Provider Outr Resulting Lab CHEMISTRY & BLOOD GAS ORDERABLES Performing Organization Address [facility] Co de Phone Number [facility] [address] [place] [address] documented in this encounter Visit Diagnoses Not on filedocumented in this encounter Care Teams Medical Device Sales Representative Relationship Specialty Start Date End Date Olaf Sahni MD PCP - General 09/20/08 11/05/20 Maureen Lua NP [address] [place] [address] PCP - General 11/06/20 documented as of this encounter
--- OUTSIDE RECORDS SUMMARY | 2023-11-02 04:06 | XMS_ITS | Encounter Summary ---
Author Organization [facility] Address [address] [place] [address] Care Team Providers Care Master Certified Rv Technician Name Role Phone Chanell Maureen García CLIENT APPLICATION SUPPORT SPECIALIST Primary Care Provider [phone] Reason for Visit * Reason Onset Date Comments Medications Refill 12/29/2020 Encounter Details Date Type Department Care Team (Late st Contact Info) Description 12/29/2020 Refill [facility] Rheumatology & Immunology - [address] [phone] Riri Seymour MD [address] [place] [address], [address] [place] [address] Medications Refill Social History Tobacco [...] Dispensed Refills Start Date End Da te pregabalin (LYRICA) 50 mg capsule Take 1 capsule bedtime for 2 weeks, then increase to 2 capsules afterwards 60 capsule 3 12/29/2020 03/02/2021 etanercept (ENBREL) 50 mg/mL (1 mL) injection Inject 1 mL into the skin once a week. 12 mL 1 12/29/2020 02/12/2021 documented in this encounter Miscellaneous Notes * Telephone Encounter - Rosa Beard RN - 12/29/2020 1723 EDT I called pharmacy. Confirmed that they hadn't received prescription for pregabalin. Prescription was faxed. * Telephone Encounter - Jaleesa James - 12/29/2020 1143 EDT Medication(s) Requested pregabalin (LYRICA) 50 mg capsule etanercept (ENBREL) 50 mg/mL (0.98 mL) injection [id number] - [address]?[phone] Next Visit Date 05/07/2021 Last Office Visit11/06/2020 Out of Medication? No Jaleesa James 12/29/2020 11:43 documented in this encounter Plan of Treatment Upcoming Encounters Date Type Department Care Team (Late st Contact Info) Description 01/17/2024 9:00 EST Office Visit [facility] Rheumatology & Immunology [address] [phone] Butch Blair NP [address] [place] [address], [address] [place] [phone] 07/26/2024 9:00 EDT Office Visit [facility] Rheumatology & Immunology - [address] [address] Riri Seymour MD [address] [place] [address], [address] [place] [phone] documented as of this encounter Visit Diagnoses Not on filedocumented in this encounter Discontinued Medications Medication Sig Discontinue Reason Start Date End Da te etanercept (ENBREL) 50 mg/mL (0.98 mL) injection Inject 1 mL into the skin every 14 days Reorder 06/19/2014 12/29/2020 pregabalin (LYRICA) 50 mg capsule Take 1 capsule bedtime for 2 weeks, then increase to 2 capsules afterwards Reorder 08/29/2020 12/29/2020 documented as of this encounter Care Teams Master Certified Rv Technician Relationship Specialty Start Date End Date Maureen Lua NP [address] [place] [address] PCP - General 11/06/20 documented as of this encounter
--- OUTSIDE RECORDS SUMMARY | 2023-11-02 04:06 | XMS_ITS | Encounter Summary ---
Author Organization [facility] Address [address] [place] [address] Care Team Providers Care Sorting And Folding Supervisor Name Role Phone Olaf Sahni MD Primary Care Provider U Maureen Harris NP Primary Care Provider [phone] Encounter Details Date Type Department Care Team (Late st Contact Info) Description 08/28/2019 Lab Requisition [facility] Pathology & Laboratory Medicine - [address] [phone] Outr Resulting Lab, Provider Social History Tobacco [...] Info) Description 01/17/2024 9:00 EST Office Visit [facility] Rheumatology & Immunology [address] [phone] Butch Blair, OPERATIONS AND MAINTENANCE TECHNICIAN [address] [place] [address], [address] [place] [address] 07/26/2024 9:00 EDT Office Visit [facility] Rheumatology & Immunology [address] [phone] Riri Seymour MD [address] [facility], [address] [place] [phone] documented as of this encounter Procedures Procedure Name Priority Date/Time Associated Diagnosis Comments HEPATITIS B SURFACE ANTIGEN Routine 08/28/2019 9:00 EDT documented in this encounter Results * HEPATITIS B SURFACE ANTIGEN (08/28/2019 9:00 EDT) Hep B Surface Ag Negative Negative 08/29/2019 9:35 EDT [facility] Blood VENOUS BLOOD / Unknown 08/28/2019 9:00 EDT 08/28/2019 21:11 EDT Provider Outr Resulting Lab CHEMISTRY & BLOOD GAS ORDERABLES [facility] [address] [place] [address] documented in this encounter Visit Diagnoses Not on filedocumented in this encounter Care Teams Sorting And Folding Supervisor Relationship Specialty Start Date End Date Olaf Sahni MD PCP - General 09/20/08 11/05/20 Maureen Lua NP [address] [place] [address] PCP - General 11/06/20 documented as of this encounter
--- OUTSIDE RECORDS SUMMARY | 2023-11-02 04:06 | XMS_ITS | Encounter Summary ---
Author Organization [facility] Address [address] [place] [address] Care Team Providers Care Manager Public Name Role Phone Olaf Sahni MD Primary Care Provider Gustavo aldana Encounter Details Date Type Department Care Team (Late st Contact Info) Description 09/14/2013 Phlebotomy Only [address] [address] Mechanical Manufacturing Technician, Outpatient Ankylosing spondylitis ([facility]); Encounter for long-term (current) use of other [...] Description 01/17/2024 9:[address] [facility] Rheumatology & Immunology [address] [address]39[address] Butch Blair NP [address] [place] [address], [facility] [address] [place] [phone] 07/26/2024 9:[address] [facility] Rheumatology & Immunology [address] [phone] Riri Seymour MD [address] [place] [address], [address] [place] [phone] documented as of this encounter Procedures Procedure Name Priority Date/Time Associated Diagnosis Comments DMARD PROFILE Routine 09/14/2013 10:00 EDT Ankylosing spondylitis ([facility]) Encounter for long-term (current) use of other medications DIFFERENTIAL Routine 09/14/2013 10:00 EDT Ankylosing spondylitis ([facility]) Encounter for long-term (current) use of other medications SED RATE Routine 09/14/2013 10:00 EDT Ankylosing spondylitis ([facility]) COMPLETE BLOOD COUNT Routine 09/14/2013 10:00 EDT Ankylosing spondylitis ([facility]) Encounter for long-term (current) use of other medications COMPLETE BLOOD COUNT AND DIFFERENTIAL Routine 09/14/2013 10:00 EDT Ankylosing spondylitis ([facility]) Encounter for long-term (current) use of other medications documented in this encounter Results * DIFFERENTIAL (09/14/2013 10:00 EDT) % Neutrophils 56.2 45.5 - 79.7 % [facility] % Lymphocytes 32.3 15.0 - 46.8 % [facility] % Monocytes 8.8 1.8 - 12.0 % [facility] % Eosinophils 2.0 0.6 - 6.9 % [facility] % Basophils 0.7 0.2 - 1.4 % [facility] ABS Neutrophils 2.65 2.20 - 8.85 K/cmm [facility] ABS Lymphs 1.52 1.09 - 3.30 K/cmm [facility] ABS Monocytes 0.41 0.1 - 0.8 K/cmm [facility] ABS Eosinophils 0.09 0.03 - 0.61 K/cmm [facility] ABS Basophils 0.03 0.01 - 0.11 K/cmm [facility] Type of Diff: Automated [facility] 09/14/2013 10:0 0 EDT 09/14/2013 10:18 EDT Ayaka NAVA-C HEMATOLOGY & PF4 O RDERABLES Performing Organization Address City/[facility] Co de Phone Number [facility] [address] [place] [address] * HEMAGRAM (09/14/2013 10:00 EDT) WBC 4.71 4.0 - 10.4 K/cmm [facility] RBC 4.90 4.36 - 5.78 M/cmm [facility] Hemoglobin 15.3 13.8 - 17.3 gm/dl [facility] HCT 42.8 39.5 - 50.2 % [facility] MCV 87 81 - 95 fl [facility] MCH 31.2 27.6 - 33.0 pg [facility] MCHC 35.7 32.8 - 36.4 gm/dl [facility] PLT 185 141 - 320 K/cmm [facility] RDW-CV 13.5 11.8 - 14.1 % [facility] 09/14/2013 10:0 0 EDT 09/14/2013 10:18 EDT Ayaka Oswald Hardy NAVA-C HEMATOLOGY & PF4 O RDERABLES Performing Organization Address [facility] Co de Phone Number [facility] [address] [place] [address] * SED. RATE:WESTERGREN (09/14/2013 10:00 EDT) Sed. Rate Westergren 2 0 - 20 mm/hr [facility] Blood specimen (specimen) 09/14/2013 10:00 EDT 09/14/2013 10:18 EDT Ayaka NAVA-C HEMATOLOGY & PF4 O RDERABLES Performing Organization Address City/[facility]/ZIP Co de Phone Number [facility] [address] [place] [address] * DMARD PROFILE (09/14/2013 10:00 EDT) Total Alkaline Phosphatase 99 38 - 126 U/L [facility] AST 31 15 - 46 U/L [facility] ALT 39 21 - 72 U/L [facility] Albumin 4.6 3.4 - 4.9 g/dl [facility] Creatinine 1.00 0.66 - 1.25 mg/dl [facility] GFR, Calculated >60 >60 ml/min/1.7 3m2 [facility] Blood specimen (specimen) 09/14/2013 10:00 EDT 09/14/2013 10:18 EDT Ayaka Dash PA-C CHEMISTRY & BLOOD GAS ORDERABLES [facility] [address] [place] [address] documented in this encounter Visit Diagnoses Diagnosis Ankylosing spondylitis ([facility]) Ankylosing spondylitis Encounter for long-term (current) use of other medications documented in this encounter Care Teams Manager Public Relationship Specialty Start Date End Date Olaf Sahni MD PCP - General 09/20/08 11/05/20 documented as of this encounter
--- OUTSIDE RECORDS SUMMARY | 2023-11-02 04:06 | XMS_ITS | Encounter Summary ---
Author Organization [facility] Address [address] [place] [address] Care Team Providers Care Fulling Machine Operator Name Role Phone Olaf Sahni MD Primary Care Provider Gustavo aldana Encounter Details Date Type Department Care Team (Late st Contact Info) Description 09/29/2020 Abstract [facility] Rheumatology & Immunology - [address] [phone] Riri Seymour MD [address] [place] [address], [address] [place] [address] Social History Tobacco Use Types Packs/Day Years [...] Info) Description 01/17/2024 9:00 EST Office Visit [facility] Rheumatology & Immunology [address] [address] Butch Blair NP [address] [place] [phone] 07/26/2024 9:00 EDT Office Visit [facility] Rheumatology & Immunology [address] [address] Riri Seymour MD [address] [place] [phone] documented as of this encounter Procedures Procedure Name Priority Date/Time Associated Diagnosis Comments SED RATE Routine 09/29/2020 7:55 EDT COMPLETE BLOOD COUNT AND DIFFERENTIAL Routine 09/29/2020 7:55 EDT C REACTIVE PROTEIN Routine 09/29/2020 7: 55 EDT COMPREHENSIVE METABOLIC PANEL (CMP) Routine 09/29/2020 7:55 EDT documented in this encounter Results * SED. RATE:RADHA (09/29/2020 7:55 EDT) Pathologist [facility] Sed. Rate Obieergren, External 2 [facility] Blood VENOUS BLOOD / Unknown 09/29/2020 7:55 EDT Riri Seymour MD HEMATOLOGY & PF4 ORDERABLES [facility] * COMPLETE BLOOD COUNT AND DIFFERENTIAL (09/29/2020 7:55 EDT) [facility] WBC, External 4.76 [facility] RBC, External 4.55 [facility] Hemoglobin, External 14.3 [facility] HCT, External 42.9 [facility] MCV, External 94.3 [facility] MCH, External 31.4 [facility] MCHC, External 33.3 [facility] PLT, External 172 [facility] RDW-CV, External 12.3 [facility] Neutrophils, External 52.0 [facility] Lymphocytes, External 35.9 [facility] Monocytes, External 8.6 [facility] Eosinophils, External 2.9 [facility] Basophils, External 0.4 [facility] ABS Neutrophils, External 2.47 [facility] ABS Lymphs, External 1.71 [facility] ABS Monocytes, External 0.41 [facility] ABS Eosinophils, External 0.14 [facility] ABS Basophils, External 0.02 [facility] Blood VENOUS BLOOD / Unknown 09/29/2020 7:55 EDT Riri Seymour MD PACKAGES & DNA P GORGE ORDERABLES [facility] * COMPREHENSIVE METABOLIC PANEL (CMP) (09/29/2020 7:55 EDT) GFR, Calculated, External >60 [facility] Glucose, Serum, External 107 [facility] Comment:High Albumin, External 4.1 [facility] Total Alkaline Phosphatase, External 117 [facility] ALT, External 59 [facility] AST, External 36 [facility] BUN, External 17 [facility] Calculated Calcium, External [facility] Calcium, External 9.2 [facility] Chloride, External 107 [facility] CO2, External 31.2 [facility] Creatinine, External 1.2 [facility] Fasting?, External [facility] Potassium, External 4.4 [facility] Sodium, External 145 [facility] Total Protein, External 7.2 [facility] Bilirubin, Total, External 0.5 [facility] Blood VENOUS BLOOD / Unknown 09/29/2020 7:55 EDT Riri Seymour MD CHEMISTRY & BLOO D GAS ORDERABLES [facility] * C REACTIVE PROTEIN (09/29/2020 7:55 EDT) C-Reactive Protein, External 0.07 [facility] Blood VENOUS BLOOD / Unknown 09/29/2020 7:55 EDT Riri Seymour MD CHEMISTRY & BLOO D GAS ORDERABLES Performing Organization Address City/[facility]/ZIP Co de Phone Number [facility] documented in this encounter Visit Diagnoses Not on filedocumented in this encounter Care Teams Fulling Machine Operator Relationship Specialty Start Date End Date Olaf Sahni MD PCP - General 09/20/08 11/05/20 documented as of this encounter
--- OUTSIDE RECORDS SUMMARY | 2023-11-02 04:06 | XMS_ITS | Encounter Summary ---
Author Organization [facility] Address [address] [place] [address] Care Team Providers Care Qa Specialist Name Role Phone ChanellMaureen jimenez NIPPLE MACHINE OPERATOR Primary Care Provider [phone] Reason for Visit * Reason Onset Date Comments Prior Auth, Medication 08/19/2021 Encounter Details Date Type Department Care Team (Late st Contact Info) Description 08/19/2021 Telephone [facility] Rheumatology & Immunology - [address] [phone] Riri Seymour MD [address] [place] [address], [address] [place] [address] Prior Auth, Medication Social History [...] encounter Miscellaneous Notes * Telephone Encounter - Nohemy Martinez - 08/19/2021 1159 EDT Prior Authorization Submission - PA Not Required Medication: Enbrel 50mg/mL [employer] Insurance: [employer] Part D PA Request Received: 08/11/2021 Pharmacy: [facility] Notes: PA already on file with insurance, expires 01/21/2023. Referral closed documented in this encounter Plan of Treatment Upcoming Encounters Date Type Department Care Team (Late st Contact Info) Description 01/17/2024 9:00 EST Office Visit [facility] Rheumatology & Immunology [address] [address] Butch Blair NP [address] [place] [phone] 07/26/2024 9:00 EDT Office Visit [facility] Rheumatology & Immunology [address] [phone] Riri Seymour MD [address] [place] [phone] documented as of this encounter Visit Diagnoses Not on filedocumented in this encounter Care Teams Qa Specialist Relationship Specialty Start Date End Date Maureen Lua NP [address] [place] [address] PCP - General 11/06/20 documented as of this encounter
--- OUTSIDE RECORDS SUMMARY | 2023-11-02 04:06 | XMS_ITS | Encounter Summary ---
Author Organization [facility] Address [address] [place] [id number] Care Team Providers Care Developmental Behavioral Physician Name Role Phone Olaf Sahni MD Primary Care Provider U navailable Reason for Referral * Radiology Services (Routine) - Closed Specialty Diagnoses / Procedures Referred By Contac t Referred To Contact Diagnoses Ankylosing spondylitis, unspecified site of spine (HCC-CMS) Low back pain, unspecified back pain laterality, unspecified chronicity, unspecified whether sciatica present Procedures XR SACROILIAC JOINTS 3 OR MORE VIEWS Riri Seymour MD [address] [place] [phone] Referral ID Status Reason Start Date Expiration Date Visits Re quested Visits Authorized [id number] Closed 08/29/2020 1 1 * Radiology Services (Routine) - Closed Specialty Diagnoses / Procedures Referred By Contac t Referred To Contact Diagnoses Pain in both knees, unspecified chronicity Procedures XR KNEE RIGHT 3 VIEWS Riri Seymour MD [address] [place] [phone] Referral ID Status Reason Start Date Expiration Date Visits Re quested Visits Authorized [id number] Closed 08/29/2020 1 1 * Radiology Services (Routine) - Closed Specialty Diagnoses / Procedures Referred By Contac t Referred To Contact Diagnoses Pain in both knees, unspecified chronicity Procedures XR KNEE LEFT 3 VIEWS Riri Seymour MD [address] [place] [phone] Referral ID Status Reason Start Date Expiration Date Visits Re quested Visits Authorized [id number] Closed 08/29/2020 1 1 * Radiology Services (Routine) - Closed Specialty Diagnoses / Procedures Referred By Contac t Referred To Contact Diagnoses Arthralgia of both hands Procedures XR HAND LEFT 1-2 VIEWS Riri Seymour MD [address] [place] [phone] Referral ID Status Reason Start Date Expiration Date Visits Re quested Visits Authorized [id number] Closed 08/29/2020 1 1 * Radiology Services (Routine) - Closed Specialty Diagnoses / Procedures Referred By Contac t Referred To Contact Diagnoses Ankylosing spondylitis, unspecified site of spine ([facility]) Procedures XR HAND RIGHT 1-2 VIEWS Riri Seymour MD [address] [place] [phone] Referral ID Status Reason Start Date Expiration Date Visits Re quested Visits Authorized [id number] Closed 08/29/2020 1 1 Reason for Visit * Reason Comments New Patient Visit Joint Pain generalized pain, wo rse in hands, back, neck Back Pain * Referral (Routine) - Receiving Office to Obtain Authorization Specialty Diagnoses / Procedures Referred By Contac t Referred To Contact Rheumatology Diagnoses Ankylosing spondylitis of unspecified sites in spine ([facility]) Maureen Lua, SHEEL[address] [place] [address] [facility] Rheumatology [address] [place] [id number] Referral ID Status Reason Start Date Expiration Date Visits Requested Visits Authorized [id number] Receiving Office to Obtain Authorization 1 1 Encounter Details Date Type Department Care Team (Late st Contact Info) Description 08/29/2020 9:00 EDT Office Visit [facility]ology [facility] Immunology - [address] [address] Riri Seymour MD [address] [place] [address], [address] [place] [address] Arthralgia of both hands (Primary Dx); Ankylosing spondylitis, unspecified site of spine (HCC-CMS); Osteoarthritis involving multiple joints on both sides of body; Fibromyalgia; Sleep apnea, unspecified type; Pain in both knees, unspecified chronicity; Low back pain, unspecified back pain laterality, unspecified chronicity, unspecified whether sciatica present Social History Tobacco Use Types Packs/Day Years [...] Sign Reading Time Taken Comments Blood Pressure 119/66 08/29/2020 0840 EDT Pulse 51 08/29/2020 0840 EDT Temperature - - Respiratory Rate - - Oxygen Saturation - - Inhaled Oxygen Concentration - - Weight 63.6 kg (140 lb 4 oz) 08/29/2020 0840 EDT Height 167.5 cm (5' 5.95) 08/29/2020 0840 EDT Body Mass Index 22.67 08/29/2020 0840 EDT documented in this encounter [...] * Patient Instructions* Riri Seymour MD - 08/29/2020 9:00 EDT Currently, I did not see clear evidence of inflammation on joint exam. I do agree that you have ankylosing spondylitis, but enbrel seems to be treating this process. Most of your pain is from osteoarthritis (wear and tear) that is likely due to the damage caused by ankylosing spondylitis. I also think you have issues with processing pain (fibromyalgia) due to being in pain for so many years. For the ankylosing spondylitis: we will obtain new labs, remain on Enbrel. For osteoarthritis: please start physical therapy. Can take Aleve 500 mg, 1 tablet twice daily as needed for pain. For fibromyalgia: I think you would benefit from PT/pool therapy, low dose Lyrica and treating yoursleep apnea. I will refer you locally to physical therapy, prescribe very low dose Lyrica and referyou to sleep medicine again (locally). Follow up in 8 weeks. Riri Seymour MD documented in this encounter Ordered Prescriptions Prescription Sig Dispensed Refills Start Date End Da te naproxen (NAPROSYN) 500 mg tablet Take 1 tablet twice daily as needed for pain. 60 Tablet 3 08/29/2020 12/29/2020 pregabalin (LYRICA) 50 mg capsule Take 1 capsule bedtime for 2 weeks, then increase to 2 capsules afterwards 60 capsule 3 08/29/2020 12/29/2020 documented in this encounter Progress Notes * Riri Seymour MD - 08/29/2020 0900 EDT [facility] Department of Rheumatology Initial Visit PCP Olaf Sahni 08/29/2020 History of Present Illness: Erasto Chapman Sr. is a 59 y.o. male with past medical history of ARGELIA/Ankylosing spondylitis, osteoporosis, hypertension, dyslipidemia, B12 deficiency, chronic pain syndrome, secondary OA, is here for a rheumatologic opinion. Reports he was diagnosed with gout about age 12. Reports his first MTP was swollen then. Two years later he was diagnosed with ARGELIA. Other joints involved knees, heels (walked on toes). Lower back did not start until 30s. He was treated with NSAIDs (indomethacin) He was treated here by Dr. Clancy for a number of years, started anti TNF therapy (etanercept), he was on etanercept about 14 to 15 years. She last saw Ayaka Phipps in 2014, by then he was on etanercept. He was never pain free while on etanercept, though he found it quite effective. He reports he had pain throughout even on etanercept, though not as severe. Back pain never subsided. He transferred his care to [place], he was switched to adalimumab, was on it for about 6 months and later secukinumab for less than 1 year and most recently in 05/2019 while under the care of Dr. Hickman at [facility], he was switched back to etanercept. He does not think it is working as well as when he started it in e . He is using it once weekly. TODAY: Localizes his pain to: Hand joints: MCPs, PIPs and DIPs. Wrists: no Elbows: yes, intermittently. Shoulders: had shoulder surgery on the R. Not the left shoulder. Neck; yes. Mid back; yes Lower back: yes. Stiff in AM for about 3 to 4 hours. Worse after activity. Hips (groins): yes. Lateral hip on the R. Knees; yes Ankles: left Toes: yes. All toes on the left and 4th toe on the right. He has had surgical interventions on the left. Morning stiffness: does have constant stiffness throughout his body. Top 3 areas of pain: back (neck, mid and lower), hands (with use) and toes (more as he walks more) Rates his pain today 4-5/10. What makes the pain better? Slight movement What makes it worse? More activity. Denies history of iritis. Has history of enthesitis (achilles per history and perhaps at his elbows). Denies dactylitis. Denies personal or family history of psoriasis. Has reported history of osteoporosis, not on treatment for it. No history of fractures. Previous non pharmacologic therapy: Last time he did PT was over 10 to 15 years. Previous pharmacologic therapy: Gabapentin: was not effective Pregabalin: was not effective Cymbalta: tried it, unclear why it was stopped. Takes vycodin as per PCP. Methotrexate: with Dr. Clancy? Stopped it due to concerns for liver toxicity and side effect profile. Alcohol: does not drink. Smoking : no. Never smoker. Occupation: unemployed, disability. Review of Systems: I have reviewed the [...] Cancer Father prostate ??? Heart Disease Father [place] at 54 ??? Heart Disease Brother at age 40 Social History Socioeconomic History ??? Marital status: Spouse name: Not on file ??? Number of children: Not on file ??? Years of education: Not on file ??? Highest education level: Not on file Occupational History ??? Not on file Tobacco Use ??? Smoking status: Never Smoker ??? Smokeless tobacco: Former User Types: Chew Substance and Sexual Activity ??? Alcohol use: [...] mL into the skin every 14 days ??? folic acid (FOLVITE) 800 mcg tablet Take 0.8 mg by mouth daily. ??? hydrocodone-acetaminophen (NORCO) 5-325 mg per tablet Take 1 Tab by mouth every 4 hours as needed. ??? lisinopril (PRINIVIL, ZESTRIL) 5 mg tablet Take 10 mg by mouth daily. ??? meloxicam (MOBIC) 15 mg tablet TAKE ONE TABLET BY MOUTH EVERY DAY NEEDED FOR BACK PAIN TAKE WITH FOOD ??? MULTIVITAMIN ORAL Take by mouth. ??? naproxen (NAPROSYN) 500 mg tablet Take 1 Tab by mouth 2 times daily with breakfast and dinner. (Patient not taking: Reported on 08/29/2020) ??? simvastatin (ZOCOR) 40 mg tablet Take 40 mg by mouth daily. Physical exam: BP 119/66 (BP Cuff Location: Left arm, BP Patient Position: Sitting, BP Cuff Sizes: Adult, regular) Pulse 51 Ht 167.5 cm (65.95) Wt 63.6 kg (140 lb 4 oz) BMI 22.67 kg/m?? HEENT: moist oral mucosa, no ulcers [...] swelling Hand:Full ROM, no tenderness or swelling Bony hypertrophy over DIPs and PIPs. Lower back: Modified Christina's 3.5 cm. Tragus to wall, about 5 cm (no thoracic kyphosis) or reversed lordosis) Hip:Full ROM Negative Jossy's Knee:Full ROM, no tenderness or swelling Ankles: Full ROM, no tenderness or swelling Feet:Full ROM, no tenderness or swelling Previous surgical intervention over left foot. Hallux valgus, overriding toes. Laboratory testing: Updated labs ordered today Imaging: X rays ordered today Problem List: Patient Active Problem List Diagnosis ??? Hypertensive disorder ??? Cobalamin deficiency ??? Ankylosing spondylitis ([facility]) Assessment Plan: # Ankylosing spondylitis. I discussed my impression with Erasto and his . Agree with Dr. Hickman's last assessment that there does not appear to be active disease. Peripheral joint exam does not support synovitis. Axial symptoms are harder to assess on exam, but Fabere's was negative and his history supports mechanical back pain (worse with activity, no prominent stiffness in AM, compared to the rest of his body). I have not ordered MR SI joints at this visit, but may consider it in the future. He last had one at [facility] in 2019 and per notes, did not support active sacroiliitis (he does have evidence of fusion, from previous disease activity) Will remain on etanercept. # Osteoarthritis involving multiple joints. Discussed that he has findings of OA over hands, knees and feet. Discussed that some of this could be secondary to previous disease activity Discussed the importance of physical activity through structured PT. Can take naproxen 500 mg twicedaily as needed for pain. 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 He is on opioids as per his PCP. I have suggested low dose pregabalin and he will try it. Recommended paced physical therapy/pool therapy Recommended addressing sleep apnea will be ojeda in pain processing. # Brain fog/memory concerns Has been referred to the memory center by his PCP # Osteoporosis To be addressed at follow up Plan; My impression has been shared with the patient as per patient instructions. As outlined in patient's instructions Patient Instructions Currently, I did not see clear evidence of inflammation on joint exam. I do agree that you have ankylosing spondylitis, but enbrel seems to be treating this process. Most of your pain is from osteoarthritis (wear and tear) that is likely due to the damage caused by ankylosing spondylitis. I also think you have issues with processing pain (fibromyalgia) due to being in pain for so many years. For the ankylosing spondylitis: we will obtain new labs, remain on Enbrel. For osteoarthritis: please start physical therapy. Can take Aleve 500 mg, 1 tablet twice daily as needed for pain. For fibromyalgia: I think you would benefit from PT/pool therapy, low dose Lyrica and treating yoursleep apnea. I will refer you locally to physical therapy, prescribe very low dose Lyrica and referyou to sleep medicine again (locally). Follow up in 8 weeks. Riri Seymour MD I spent a total of 60 minutes on the date of this encounter meeting with the patient and reviewing documentation/coordinating care as described in the above note. No procedures were performed at the time of the visit. Riri Seymour MD Department of Rheumatology Attending Physician Pager: [phone] documented in this encounter Plan of Treatment Upcoming Encounters Date Type Department Care Team (Late st Contact Info) Description 01/17/2024 9:00 EST Office Visit [facility] [address] [id number] Butch Blair NP [address] [place] [phone] 07/26/2024 9:00 EDT Office Visit [facility] [address] [phone] Riri Seymour MD [address] [place] [phone] documented as of this encounter Results * XR SACROILIAC JOINTS 3 OR MORE VIEWS (11/06/2020 8:36 EDT) Anatomical Region Laterality Modality Spine Computed Radiogr aphy 11/06/2020 11:0 0 EDT Impressions 11/06/2020 11:00 EDT FINDINGS / IMPRESSION: 3 views of the sacroiliac joints demonstrate advanced arthritic changes at both SI joints with partial bony ankylosis across the articulations. Narrative 11/06/2020 11:00 EDT EXAM/TECHNIQUE: XR SACROILIAC JOINTS 3 OR MORE VIEWS ??11/06/2020 8:00 AM HISTORY: ?? Known ankylosing spondylitis, previous care at [facility]. Ordered for new baseline. COMPARISON: None. Procedure Note Elder Santiago, DO - 11/06/2020 EXAM/TECHNIQUE: XR SACROILIAC JOINTS 3 OR MORE VIEWS 11/06/2020 8:00 AM HISTORY: Known ankylosing spondylitis, previous care at [facility]. Ordered for newbaseline. COMPARISON: None. IMPRESSION FINDINGS / IMPRESSION: 3 views of the sacroiliac joints demonstrate advanced arthritic changes atboth SI joints with partial bony ankylosis across the articulations. Riri Seymour MD IMG DIAGNOSTIC I MAGING ORDERABLES * XR KNEE RIGHT 3 VIEWS (11/06/2020 8:36 EDT) Anatomical Region Laterality Modality Lower Extremities Right Computed Radio graphy 11/06/2020 11:0 1 EDT Impressions 11/06/2020 11:01 EDT FINDINGS / IMPRESSION: Right knee: 3 views of the right knee show moderate tricompartmental degenerative changes. There is no sizable joint effusion. There is enthesopathic spurring on the superior and inferior margins of the patella. Left knee: 3 views of the left knee show moderate tricompartmental degenerative changes. There is no sizable joint effusion. There is spurring on the superior and inferior margins of the patella. Narrative 11/06/2020 11:01 EDT EXAM/TECHNIQUE: XR KNEE LEFT 3 VIEWS, XR KNEE RIGHT 3 VIEWS ??11/06/2020 8:00 AM HISTORY: ?? OA COMPARISON: None. Procedure Note Elder Santiago, DO - 11/06/2020 EXAM/TECHNIQUE: XR KNEE LEFT 3 VIEWS, XR KNEE RIGHT 3 VIEWS 11/06/2020 8:00 AM HISTORY: OA COMPARISON: None. IMPRESSION FINDINGS / IMPRESSION: Right knee: 3 views of the right knee show moderate tricompartmentaldegenerative changes. There is no sizable joint effusion. There isenthesopathic spurring on the superior and inferior margins of thepatella. Left knee: 3 views of the left knee show moderate tricompartmentaldegenerative changes. There is no sizable joint effusion. There isspurring on the superior and inferior margins of the patella. Riri Seymour MD IMG DIAGNOSTIC I MAGING ORDERABLES * XR KNEE LEFT 3 VIEWS (11/06/2020 8:36 EDT) Anatomical Region Laterality Modality Lower Extremities Left Computed Radio graphy 11/06/2020 11:0 1 EDT Impressions 11/06/2020 11:01 EDT FINDINGS / IMPRESSION: Right knee: 3 views of the right knee show moderate tricompartmental degenerative changes. There is no sizable joint effusion. There is enthesopathic spurring on the superior and inferior margins of the patella. Left knee: 3 views of the left knee show moderate tricompartmental degenerative changes. There is no sizable joint effusion. There is spurring on the superior and inferior margins of the patella. Narrative 11/06/2020 11:01 EDT EXAM/TECHNIQUE: XR KNEE LEFT 3 VIEWS, XR KNEE RIGHT 3 VIEWS ??11/06/2020 8:00 AM HISTORY: ?? OA COMPARISON: None. Procedure Note Elder Santiago, DO - 11/06/2020 EXAM/TECHNIQUE: XR KNEE LEFT 3 VIEWS, XR KNEE RIGHT 3 VIEWS 11/06/2020 8:00 AM HISTORY: OA COMPARISON: None. IMPRESSION FINDINGS / IMPRESSION: Right knee: 3 views of the right knee show moderate tricompartmentaldegenerative changes. There is no sizable joint effusion. There isenthesopathic spurring on the superior and inferior margins of thepatella. Left knee: 3 views of the left knee show moderate tricompartmentaldegenerative changes. There is no sizable joint effusion. There isspurring on the superior and inferior margins of the patella. Riri Seymour MD IMG DIAGNOSTIC I MAGING ORDERABLES * XR HAND LEFT 1-2 VIEWS (11/06/2020 8:36 EDT) Anatomical Region Laterality Modality Upper Extremities Left Computed Radio graphy 11/06/2020 10:5 9 EDT Impressions 11/06/2020 10:59 EDT FINDINGS / IMPRESSION: Left hand: PA and ball-catcher's views of the left hand show no fracture or malalignment. There are scattered mild degenerative changes, most notably second MCP joint. No erosions are identified in the bone mineralization is normal. Right hand: PA and ball-catcher's views of the right hand show no fracture or malalignment. There are scattered mild degenerative changes without erosions seen. There is focal soft tissue swelling along the radial aspect of the second PIP joint. Narrative 11/06/2020 10:59 EDT EXAM/TECHNIQUE: XR HAND RIGHT 1-2 VIEWS, XR HAND LEFT 1-2 VIEWS ??11/06/2020 8:00 AM HISTORY: ?? hand OA COMPARISON: None. Procedure Note Elder Santiago, DO - 11/06/2020 EXAM/TECHNIQUE: XR HAND RIGHT 1-2 VIEWS, XR HAND LEFT 1-2 VIEWS 11/06/2020 8:00 AM HISTORY: hand OA COMPARISON: None. IMPRESSION FINDINGS / IMPRESSION: Left hand: PA and ball-catcher's views of the left hand show no fractureor malalignment. There are scattered mild degenerative changes, mostnotably second MCP joint. No erosions are identified in the bonemineralization is normal. Right hand: PA and ball-catcher's views of the right hand show no fractureor malalignment. There are scattered mild degenerative changes withouterosions seen. There is focal soft tissue swelling along the radial aspectof the second PIP joint. Riri Seymour MD [facility] DIAGNOSTIC I MAGING ORDERABLES * XR HAND RIGHT 1-2 VIEWS (11/06/2020 8:36 EDT) Anatomical Region Laterality Modality Upper Extremities Right Computed Radio graphy 11/06/2020 10:5 9 EDT Impressions 11/06/2020 10:59 EDT FINDINGS / IMPRESSION: Left hand: PA and ball-catcher's views of the left hand show no fracture or malalignment. There are scattered mild degenerative changes, most notably second MCP joint. No erosions are identified in the bone mineralization is normal. Right hand: PA and ball-catcher's views of the right hand show no fracture or malalignment. There are scattered mild degenerative changes without erosions seen. There is focal soft tissue swelling along the radial aspect of the second PIP joint. Narrative 11/06/2020 10:59 EDT EXAM/TECHNIQUE: XR HAND RIGHT 1-2 VIEWS, XR HAND LEFT 1-2 VIEWS ??11/06/2020 8:00 AM HISTORY: ?? hand OA COMPARISON: None. Procedure Note Elder Santiago, DO - 11/06/2020 EXAM/TECHNIQUE: XR HAND RIGHT 1-2 VIEWS, XR HAND LEFT 1-2 VIEWS 11/06/2020 8:00 AM HISTORY: hand OA COMPARISON: None. IMPRESSION FINDINGS / IMPRESSION: Left hand: PA and ball-catcher's views of the left hand show no fractureor malalignment. There are scattered mild degenerative changes, mostnotably second MCP joint. No erosions are identified in the bonemineralization is normal. Right hand: PA and ball-catcher's views of the right hand show no fractureor malalignment. There are scattered mild degenerative changes withouterosions seen. There is focal soft tissue swelling along the radial aspectof the second PIP joint. Riri Seymour MD [facility] DIAGNOSTIC I MAGING ORDERABLES documented in this encounter Visit Diagnoses Diagnosis Arthralgia of both hands- Primary Ankylosing spondylitis, unspecified site of spine (HCC-CMS) Osteoarthritis involving multiple joints on both sides of body Fibromyalgia Mylagia and myositis, unspecified Sleep apnea, unspecified type Pain in both knees, unspecified chronicity Low back pain, unspecified back pain laterality, unspecified chronicity, unspecified whether sciatica present Ankylosing spondylitis, unspecified site of spine ([facility]) Arthralgia of both hands Pain in both knees, unspecified chronicity Low back pain, unspecified back pain laterality, unspecified chronicity, unspecified whether sciatica present documented in this encounter Discontinued Medications Medication Sig Discontinue Reason Start Date End Da te meloxicam (MOBIC) 15 mg tablet TAKE ONE TABLET BY MOUTH EVERY DAY NEEDED FOR BACK PAIN TAKE WITH FOOD 08/12/2020 08/29/2020 naproxen (NAPROSYN) 500 mg tablet Take 1 Tab by mouth 2 times daily with breakfast and dinner. Reorder 03/22/2014 08/29/2020 documented as of this encounter Historical Medications * This list may reflect changes made after this encounter. Medication Sig Dispensed Refills Start Date End Date MULTIVITAMIN ORAL Take 1 Tablet by mouth daily. Cholecalciferol, Vitamin D3, 50 mcg (2,000 unit) capsule Take 1 Capsule by mouth daily. folic acid (FOLVITE) 800 mcg tablet Take 1 Tablet by mouth daily. meloxicam (MOBIC) 15 mg tablet TAKE ONE TABLET BY MOUTH EVERY DAY NEEDED FOR BACK PAIN TAKE WITH FOOD 08/12/2020 08/29/2020 added in this encounter Care Teams Developmental Behavioral Physician Relationship Specialty Start Date End Date Olaf Sahni MD PCP - General 09/20/08 11/05/20 documented as of this encounter
--- OUTSIDE RECORDS SUMMARY | 2023-11-02 04:06 | XMS_ITS | Encounter Summary ---
Author Organization [facility] Address [address] [place] [address] Care Team Providers Care Cardiac Exercise Physiologist Name Role Phone Olaf Sahni MD Primary Care Provider U Maureen Harris NP Primary Care Provider [phone] Encounter Details Date Type Department Care Team (Late st Contact Info) Description 01/16/2019 Lab Requisition [facility] Pathology & Laboratory Medicine [address] [phone] Unknown, Provider, Social History Tobacco Use Types [...] Info) Description 01/17/2024 9:00 EST Office Visit [facility] Rheumatology & Immunology [address] [phone] Butch Blair, EVP OF [employer]ODUCTS & [employer] FOUNDER [address] [facility], [address] [place] [phone] 07/26/2024 9:00 EDT Office Visit [facility] Rheumatology & Immunology [address] [address] Riri Seymour MD [address] [facility], [address] [place] [phone] documented as of this encounter Procedures Procedure Name Priority Date/Time Associated Diagnosis Comments HIV 1/2 ANTIGEN AND ANTIBODY, 4TH GENERATION Routine 01/16/2019 8:43 EST documented in this encounter Results * HIV 1/2 ANTIGEN AND ANTIBODY, 4TH GENERATION (01/16/2019 8:43 EST) HIV 1 and 2 Antibody/p24 Antigen, 4th Generation Negative Negative 01/17/2019 14:08 EST [facility] Comment: If acute HIV-1 infection is suspected in a high risk ??patient, submit plasma specimen for HIV-1 RNA quantitation test. Fourth Generation assay performed on the Siemens Centaur. Blood VENOUS BLOOD / Unknown Non-Lab Collect / Unknown 01/16/2019 8:43 EST 01/16/2019 22:40 EST Provider Unknown IMMUNOLOGY AND SEROL TONY ORDERABLES [facility] [address] [place] [address] documented in this encounter Visit Diagnoses Not on filedocumented in this encounter Care Teams Cardiac Exercise Physiologist Relationship Specialty Start Date End Date Olaf Sahni MD PCP - General 09/20/08 11/05/20 Maureen Lua NP [address] [place] [address] PCP - General 11/06/20 documented as of this encounter
--- OUTSIDE RECORDS SUMMARY | 2023-11-02 04:06 | XMS_ITS | Encounter Summary ---
Author Organization [facility] Address [address] [place] [address] Care Team Providers Care Index Editor Name Role Phone Maureen Lua EMPLOYEE RELATION MANAGER Primary Care Provider [phone] Reason for Visit * Reason Onset Date Comments Appointment Related 05/07/2021 Encounter Details Date Type Department Care Team (Late st Contact Info) Description 05/07/2021 Telephone [facility] Rheumatology & Immunology - [address] [phone] Riri Seymour MD [address] [place] [address], [address] [place] [phone] Appointment Related Social History Tobacco Use Types [...] encounter Miscellaneous Notes * Telephone Encounter - Marti Serrano - 05/07/2021 0633 EST PAS Message: Erasto called to cancel appointment with Riri Seymour MD on 05/07 at 0920 due to weather. Patient would like a call back to reschedule? Yes. documented in this encounter Plan of Treatment Upcoming Encounters Date Type Department Care Team (Late st Contact Info) Description 01/17/2024 9:00 EST Office Visit [facility] Rheumatology & Immunology [address] [phone] Butch Blair NP [address] [place] [phone] 07/26/2024 9:00 EDT Office Visit [facility] Rheumatology & Immunology [address] [phone] Riri Seymour MD [address] [place] [phone] documented as of this encounter Visit Diagnoses Not on filedocumented in this encounter Care Teams Index Editor Relationship Specialty Start Date End Date Maureen Lua NP [address] [place] [address] PCP - General 11/06/20 documented as of this encounter
--- OUTSIDE RECORDS SUMMARY | 2023-11-02 04:06 | XMS_ITS | Encounter Summary ---
Author Organization [facility] Address [address] [place] [address] Care Team Providers Care Book Solicitor Name Role Phone Chanell Maureen García BOILERMAKER FITTER Primary Care Provider [phone] Reason for Visit * Reason Comments Other Encounter Details Date Type Department Care Team (Late st Contact Info) Description 12/27/2020 Refill [facility] Rheumatology & Immunology - [address] [phone] Riri Seymour MD [address] [place] [address], [address] [place] [phone] Other Social History Tobacco Use Types Packs/Day Years [...] Da te naproxen (NAPROSYN) 500 mg tablet TAKE ONE TABLET BY MOUTH TWICE A DAY NEEDED FOR PAIN 60 Tablet 3 12/29/2020 07/25/2023 documented in this encounter Plan of Treatment Upcoming Encounters Date Type Department Care Team (Late st Contact Info) Description 01/17/2024 9:00 EST Office Visit [facility] Rheumatology & Immunology [address] [phone] Butch Blair NP [address] [place] [phone] 07/26/2024 9:00 EDT Office Visit [facility] Rheumatology & Immunology [address] [phone] Riri Seymour MD [address] [place] [phone] documented as of this encounter Visit Diagnoses Not on filedocumented in this encounter Discontinued Medications Medication Sig Discontinue Reason Start Date End Da te naproxen (NAPROSYN) 500 mg tablet Take 1 tablet twice daily as needed for pain. 08/29/2020 12/29/2020 documented as of this encounter Care Teams Book Solicitor Relationship Specialty Start Date End Date Maureen Lua NP [address] [place] [address] PCP - General 11/06/20 documented as of this encounter
--- OUTSIDE RECORDS SUMMARY | 2023-11-02 04:06 | XMS_ITS | Encounter Summary ---
Author Organization [facility] Address [address] [place] [address] Care Team Providers Care Manager Basketball Name Role Phone Olaf Sahni MD Primary Care Provider U lisandraaildino Reason for Visit * Reason Onset Date Comments Medications Refill 09/04/2013 Enbrel Encounter Details Date Type Department Care Team (Late st Contact Info) Description 09/04/2013 Refill [facility] Rheumatology & Immunology - [address] [address] Jaciel Clancy MD Medications Refill (Enbrel) Social History Tobacco Use Types Packs/Day Years Used Date Smoking Tobacco: Never Alcohol Use Standard Drinks/Week Comments Yes 0 [...] 50 mg/mL (0.98 mL) injectionIndications:Anky losing spondylitis ([facility]) Inject 1 mL into the skin every 14 days. 6 Syringe 1 09/04/2013 09/14/2013 documented in this encounter Miscellaneous Notes * Telephone Encounter - Ana Caraballo - 09/04/2013 1021 EDT Medication(s) Requested: Enbrel [facility] Last Refill Date: 03/22/13 Last Visit Date: 03/22/13 Next Visit Date: 09/14/2013 Is patient out of medication? Yes, but next dose is due 09/09 Ana Caraballo 09/04/2013 10:21 documented in this encounter Plan of Treatment Upcoming Encounters Date Type Department Care Team (Late st Contact Info) Description 01/17/2024 9:00 EST Office Visit [facility] Rheumatology & Immunology [address] [phone] Butch Blair NP [address] [place] [phone] 07/26/2024 9:00 EDT Office Visit [facility] Rheumatology & Immunology [address] [address] Riri Seymour MD [address] [place] [phone] documented as of this encounter Visit Diagnoses Diagnosis Ankylosing spondylitis ([facility])- Primary Ankylosing spondylitis documented in this encounter Discontinued Medications Medication Sig Discontinue Reason Start Date End Da te etanercept (ENBREL) 50 mg/mL (0.98 mL) injectionIndications:Anky losing spondylitis ([facility]) Inject 1 mL into the skin every 14 days. Reorder 03/22/2013 09/04/2013 documented as of this encounter Care Teams Manager Basketball Relationship Specialty Start Date End Date Olaf Sahni MD PCP - General 09/20/08 11/05/20 documented as of this encounter
--- OUTSIDE RECORDS SUMMARY | 2023-11-02 04:06 | XMS_ITS | Encounter Summary ---
Author Organization [facility] Address [address] [place] [address] Care Team Providers Care Packing Machine Feeder Name Role Phone Olaf Sahni MD Primary Care Provider U Maureen Harris NP Primary Care Provider [phone] Encounter Details Date Type Department Care Team (Late st Contact Info) Description 01/16/2019 Lab Requisition [facility] Pathology & Laboratory Medicine [address] [phone] Unknown, Provider, Social History Tobacco Use Types [...] Info) Description 01/17/2024 9:00 EST Office Visit [facility] Rheumatology & Immunology [address] [phone] Butch Blair, HALL COORDINATOR [address] [facility], [address] [place] [phone] 07/26/2024 9:00 EDT Office Visit [facility] Rheumatology & Immunology [address] [address] Riri Seymour MD [address] [facility], [address] [place] [phone] documented as of this encounter Procedures Procedure Name Priority Date/Time Associated Diagnosis Comments HOLD SST Today 01/16/2019 8:43 EST HOLD SST Today 01/16/2019 8:43 EST HEPATITIS C AB W REFLEX TO HCV RNA BY PCR Today 01/16/2019 8:43 EST HEPATITIS B CORE ANTIBODY (TOTAL) Today 01/16/2019 8:43 EST HEPATITIS B SURFACE ANTIBODY Today 01/16/2019 8:43 EST HEPATITIS B SURFACE ANTIGEN Today 01/16/2019 8:43 EST documented in this encounter Results * HOLD SST (01/16/2019 8:43 EST) Hold Hold 01/16/2019 23:45 EST [facility] Blood VENOUS BLOOD / Unknown Non-Lab Collect / Unknown 01/16/2019 8:43 EST 01/16/2019 22:41 EST Provider Unknown LAB INFO SERVICE AND SUPPORT & PHONE RESULT [facility] [address] [place] [address] * HOLD SST (01/16/2019 8:43 EST) Hold Hold 01/16/2019 23:45 EST [facility] Blood VENOUS BLOOD / Unknown Non-Lab Collect / Unknown 01/16/2019 8:43 EST 01/16/2019 22:41 EST Provider Unknown LAB INFO SERVICE AND SUPPORT & PHONE RESULT [facility] [address] [place] [address] * HEPATITIS B SURFACE ANTIBODY (01/16/2019 8:43 EST) Hep B Surface Ab, Qualitative Negative See Note 01/17/2019 14:55 EST [facility] Comment: Reference Range for Hep B Surface Ab, Qual: Unvaccinated: ??Negative Vaccinated: ??Positive Hep B Surface Ab, Quantitative <3.1 mIU/mL 01/17/2019 14:55 EST [facility] Comment: Patient is presumed to not be immune to infection with Hepatitis B Virus. Blood VENOUS BLOOD / Unknown Non-Lab Collect / Unknown 01/16/2019 8:43 EST 01/16/2019 22:40 EST Provider Unknown CHEMISTRY & BLOOD GA S ORDERABLES Performing Organization Address City/[facility] Co de Phone Number [facility] [address] [place] [address] * HEPATITIS B CORE ANTIBODY (TOTAL) (01/16/2019 8:43 EST) Hepatitis B Core Ab, Total Negative Negative 01/17/2019 11:55 EST [facility] Blood VENOUS BLOOD / Unknown Non-Lab Collect / Unknown 01/16/2019 8:43 EST 01/16/2019 22:40 EST Provider Unknown CHEMISTRY & BLOOD GA S ORDERABLES [facility] [address] [place] [address] * HEPATITIS B SURFACE ANTIGEN (01/16/2019 8:43 EST) Hep B Surface Ag Negative Negative 01/17/2019 11:11 EST [facility] Blood VENOUS BLOOD / Unknown Non-Lab Collect / Unknown 01/16/2019 8:43 EST 01/16/2019 22:40 EST Provider Unknown CHEMISTRY & BLOOD GA S ORDERABLES [facility] [address] [place] [address] * HEPATITIS C AB W REFLEX TO HCV RNA BY PCR (01/16/2019 8:43 EST) Hep C Antibody Negative Negative 01/17/2019 11:55 EST [facility] Blood VENOUS BLOOD / Unknown Non-Lab Collect / Unknown 01/16/2019 8:43 EST 01/16/2019 22:40 EST Provider Unknown MD CHEMISTRY & BLOOD GA S ORDERABLES [facility] [address] [place] [address] documented in this encounter Visit Diagnoses Not on filedocumented in this encounter Care Teams Packing Machine Feeder Relationship Specialty Start Date End Date Olaf Sahni MD PCP - General 09/20/08 11/05/20 Maureen Lua NP [address] [place] [address] PCP - General 11/06/20 documented as of this encounter
--- OUTSIDE RECORDS SUMMARY | 2023-11-02 04:06 | XMS_ITS | Encounter Summary ---
Author Organization [facility] Address [address] [place] [address] Care Team Providers Care Medication Administration Professional Name Role Phone Olaf Sahni MD Primary Care Provider U lisandraaildino Reason for Visit * Reason Comments Follow-up symptoms have not ch anged much since last visit. Continues to have pain in hands and neck Encounter Details Date Type Department Care Team (Latest Contact Info) Description 03/22/2013 9:30 EST Office Visit [facility] Rheumatology & Immunology - [address] [address] Steven Abrams MD Ankylosing spondylitis ([facility]) (Primary Dx); Encounter for long-term (current) use of other medications Discharge Disposition: Auto Discharge Social History Tobacco Use Types Packs/Day Years [...] Sign Reading Time Taken Comments Blood Pressure 108/62 03/22/2013 0918 EST Pulse 62 03/22/2013 0918 EST Temperature - - Respiratory Rate - - Oxygen Saturation - - Inhaled Oxygen Concentration - - Weight 67.6 kg (149 lb) 03/22/2013 0918 EST Height - - Body Mass Index 24.05 09/18/2012 0822 EDT documented in this encounter Discharge Diagnoses Diagnosis 720.0 ANKYLOSING SPONDYLITIS[ICD-9-CM] V58.69 [facility] USE MEDICATN[ICD-9-CM] documented in this encounter Ordered Prescriptions Prescription Sig Dispensed Refills Start Date End Da te meloxicam (MOBIC) 7.5 mg tabletIndications:Ankylos ing spondylitis ([facility]),Encounter for long-term (current) use of other medications Take 1 Tab by mouth daily. 90 Tab 3 03/22/2013 09/14/2013 etanercept (ENBREL) 50 mg/mL (0.98 mL) injectionIndications:Anky losing spondylitis ([facility]) Inject 1 mL into the skin every 14 days. 6 Syringe 1 03/22/2013 09/04/2013 documented in this encounter Discharge Disposition Disposition Code Departure Means Destination Auto Discharge documented in this encounter Progress Notes * Steven Abrams MD - 03/22/2013 0919 EST Division of Rheumatology and Clinical Immunology HPI: Six month follow up of ankylosing spondylitis. Saw Ayaka Menendez last visit. Tried to taper Enbrel but had increasing symptoms and after last visit went back to 50 mg every 2 weeks and symptomsare tolerable. Usually by the end of the two weeks he is noticing more symptoms in neck, shoulders and back and within a couple of days after injection he has noted improvement. No infections or other illnesses. Taking meloxicam daily and that helps as well. On PPI and statin as well. Has B12 deficiency and receives monthly injection. Every few nights takes hydrocodone to help with pain. Current Outpatient Prescriptions Medication Sig Dispense Refill ??? Aspirin 81 mg Tab Take 81 mg by mouth daily. ??? cyanocobalamin (VITAMIN B-12) 1,000 mcg tablet Take 1,000 mcg by mouth daily. ??? cyanocobalamin (VITAMIN B12) 1,000 mcg/mL injection Inject 100 mcg into the muscle every 28 days. ??? etanercept (ENBREL) 50 mg/mL (0.98 mL) injection Inject 1 mL into the skin every 14 days. 1 Syringe 0 ??? hydrocodone-acetaminophen (NORCO) 5-325 mg per tablet Take 1 Tab by mouth every 4 hours as needed. ??? lisinopril (PRINIVIL, ZESTRIL) 5 mg tablet Take 5 mg by mouth daily. ??? meloxicam (MOBIC) 7.5 mg tablet Take 1 Tab by mouth daily. 30 Tab 11 ??? rabeprazole (ACIPHEX) 20 mg tablet Take 20 mg by mouth daily. ??? simvastatin (ZOCOR) 40 mg tablet Take 40 mg by mouth daily. No current facility-administered medications for this visit. Allergies include: Review of patient's allergies indicates no known allergies. Past Medical History Diagnosis Date ??? Arthritis ??? Hypertension ??? Hypercholesteremia ??? Vitamin B 12 deficiency ??? Osteoporosis Past Surgical History Procedure Laterality Date ??? Foot surgery 1980 Replaced joint in big toe Family History Problem Relation Age of Onset ??? Cancer Mother throat ca ??? Cancer Father prostate ??? Heart Disease Father MA at 54 ??? Heart Disease Brother at age 40 History Social History ??? Marital Status: Spouse Name: N/A Number of Children: N/A ??? Years of Education: N/A Occupational History ??? Not on file. Social History Main Topics ??? Smoking status: Never Smoker ??? Smokeless tobacco: Not on file ??? Alcohol Use: Yes ??? Drug Use: ??? Sexually Active: Other Topics Concern ??? Not on file Social History Narrative ??? No narrative on file REVIEW OF SYSTEMS: Yes No Yes No Fever x Joint pain x Fatigue x Muscle pain x Night sweats x Morning stiffness x Weight change x If yes, duration 2-3 hours Gain or loss? Numbness/tingling x Eye discomfort X dry eyes and mouth Headaches x Mouth/Nose sores x Muscle weakness [...] w/cold x Hair Loss x PHYSICAL EXAMINATION: BP 108/62 Pulse 62 Wt 67.586 kg (149 lb) BMI 24.06 kg/m2 Constitutional: Healthy, alert and not in acute distress. HEENT: No eye redness or irritation. No mouth lesions. Oral mucosa moist. RESPIRATORY: Clear / equal BS; no adventitious sounds bilaterally HEART: Regular rate and rhythm; no murmur. MUSCULOSKELETAL: Neck has good ROM. Some pain with ROM right shoulder (previousi surgery). No synovitis in peripheral joints. Back has good ROM and finger to floor is about 10 cm but he had on heavy shoes. Head to wall distance - 0 and chest expansion of 4.5 cm. LABS Lab Results Component Value Date WBC 6.60 09/18/2012 WBC 5.14 03/25/2009 HGB 15.0 09/18/2012 HGB 15.2 03/25/2009 HCT 43.2 09/18/2012 HCT 43.1 03/25/2009 MCV 91 09/18/2012 MCV 92 03/25/2009 PLT 172 09/18/2012 PLT 176 03/25/2009 Lab Results Component Value Date CREATININE 0.93 09/18/2012 CREATININE 0.97 03/25/2009 BUN 19 03/15/2006 NA 143 03/15/2006 CL 100 03/15/2006 CO2 31 03/15/2006 Lab Results Component Value Date ALT 45 09/18/2012 ALT 32 03/25/2009 AST 28 09/18/2012 AST 27 03/25/2009 ALKPHOS 90 09/18/2012 ALKPHOS 84 03/25/2009 Lab Results Component Value Date SEDRATE 21* 09/18/2012 Lab Results Component Value Date CRP 14.2* 05/31/2003 Imaging: Diagnosis / Assessment: 1. Ankylosing spondylitis which continues to do quite well certainly relative to what his disease was like prior to starting etanercept. His exam is almost entirely normal. He still has some general achiness and takes hydrocodone on occasion along with the etanercept. Presently taking etanercept every 2 weeks which seems to be controlling his symptoms. Recommendations/Evaluation: 1. Continue etanercept 50 mg every 2 weeks which appears to be controlling his disease. Given previous trials to taper further to seems that that is the correct dose for him especially given that he begins to notice symptoms prior to the injection. 2. Followup in 6 months. Given litzy I will be retiring he transfer his care to [facility] or come back here to see Ms. Menendez. STEVEN ABRAMS MD 03/22/2013 9:46 documented in this encounter Plan of Treatment Upcoming Encounters Date Type Department Care Team (Late st Contact Info) Description 01/17/2024 9:00 EST Office Visit [facility] Rheumatology & Immunology - [address] [phone] Butch Blair NP 111 [facility] [address] [place] [phone] 07/26/2024 9:00 EDT Office Visit [facility] Rheumatology & Immunology - [facility] [address] [place], [place] [phone] Riri Seymour MD [address] [phone] documented as of this encounter Visit Diagnoses Diagnosis Ankylosing spondylitis ([facility])- Primary Ankylosing spondylitis Encounter for long-term (current) use of other medications documented in this encounter Discontinued Medications Medication Sig Discontinue Reason Start Date End Da te etanercept (ENBREL) 50 mg/mL (0.98 mL) injectionIndications:Anky losing spondylitis ([facility]) Inject 1 mL into the skin every 14 days. Reorder 09/19/2012 03/22/2013 meloxicam (MOBIC) 7.5 mg tabletIndications:Ankylos ing spondylitis ([facility]),Encounter for long-term (current) use of other medications Take 1 Tab by mouth daily. Reorder 03/23/2012 03/22/2013 documented as of this encounter Care Teams Medication Administration Professional Relationship Specialty Start Date End Date Olaf Sahni MD PCP - General 09/20/08 11/05/20 documented as of this encounter
--- OUTSIDE RECORDS SUMMARY | 2023-11-02 04:06 | XMS_ITS | Encounter Summary ---
Author Organization [facility] Address [address] [place] [address] Care Team Providers Care Family Caseworker Name Role Phone Chanell Maureen García INTERNET DEVELOPER Primary Care Provider [phone] Reason for Visit * Reason Onset Date Comments Medications Refill 03/02/2021 Encounter Details Date Type Department Care Team (Late st Contact Info) Description 03/02/2021 Refill [facility] Rheumatology & Immunology - [address] [phone] Alanna Mccann MD [address] [place] [address], [address] [place] [phone] Medications Refill Social History Tobacco Use Types [...] to 2 capsules afterwards 60 capsule 3 03/03/2021 10/08/2021 documented in this encounter Plan of Treatment Upcoming Encounters Date Type Department Care Team (Late st Contact Info) Description 01/17/2024 9:00 EST Office Visit [facility] Rheumatology & Immunology [address] [phone] Butch Blair NP [address] [place] [phone] 07/26/2024 9:00 EDT Office Visit [facility] Rheumatology & Immunology [address] [phone] Riri Seymour MD [address] [place] [phone] documented as of this encounter Visit Diagnoses Not on filedocumented in this encounter Discontinued Medications Medication Sig Discontinue Reason Start Date End Da te pregabalin (LYRICA) 50 mg capsule Take 1 capsule bedtime for 2 weeks, then increase to 2 capsules afterwards Reorder 12/29/2020 03/02/2021 documented as of this encounter Care Teams Family Caseworker Relationship Specialty Start Date End Date Maureen Lua NP [address] [place] [address] PCP - General 11/06/20 documented as of this encounter
--- OUTSIDE RECORDS SUMMARY | 2023-11-02 04:06 | XMS_ITS | Encounter Summary ---
Author Organization [facility] Address [address] [place] [address] Care Team Providers Care Heavy Equipment Field Mechanic Name Role Phone Olaf Sahni MD Primary Care Provider U lisandraaildino Reason for Visit * Reason Comments Joint Pain all over Encounter Details Date Type Department Care Team (Latest Contact Info) Description 03/22/2014 12:45 EST Office Visit [facility] Rheumatology & Immunology - [facility] [address], [place] [phone] Ayaka Dash, PA-C [address] [place] [address] Ankylosing spondylitis (HCC-CMS) (Primary Dx); Generalized osteoarthrosis, involving multiple sites; Encounter for long-term (current) use of other [...] Sign Reading Time Taken Comments Blood Pressure 117/61 03/22/2014 1241 EST Pulse 63 03/22/2014 1241 EST Temperature - - Respiratory Rate 18 03/22/2014 1241 EST Oxygen Saturation - - Inhaled Oxygen Concentration - - Weight 65.8 kg (145 lb) 03/22/2014 1241 EST Height 168.1 cm (5' 6.2) 03/22/2014 1241 EST Body Mass Index 23.26 03/22/2014 1241 EST documented in this encounter Discharge Diagnoses Diagnosis 720.0 ANKYLOSING SPONDYLITIS[ICD-9-CM] 715.09 GENERAL OSTEOARTHROSIS, MULTIPLE SITES[ICD-9-CM] V58.69 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 I want you to try Naproxen instead. This is also an anti- inflammatory medication but may work a bit better for you. You will take 1 tab (500 mg) twice daily. Take this with food to protect your stomach. Do not take other anti-inflammatories (such as Meloxicam, Ibuprofen or Aleve) with this. You can still take Tylenol as needed. If Naproxen isn't effective you can stop it and go back to Meloxicam. In this case I think you should also consider increasing Enbrel to once weekly to see if this helps with your joint pain. If no improvement in 3 months go back to every other week. Follow up in 6 months, sooner as needed. documented in this encounter Ordered Prescriptions Prescription Sig Dispensed Refills Start Date End Da te naproxen (NAPROSYN) 500 mg tablet Take 1 Tab by mouth 2 times daily with breakfast and dinner. 60 Tab 5 03/22/2014 08/29/2020 documented in this encounter Progress Notes * Ayaka Dash PA - 03/22/2014 1242 EST Images from the original note were not included. Division of Rheumatology and Clinical Immunology Chief Complaint Patient presents with ??? Joint Pain all over HPI: Mr. Erasto Chapman . is a 53 y.o. male here for follow up of ankylosing spondylitis. Changes since last visit: Increased Meloxicam to 15 mg daily. Not much difference. Still taking Enbrel every other week. Affected joints: Mainly hands. And central low back. Also up towards the neck. But had a 1 1/2 hour ride to get herewhich could be contributing. Also the cold damp weather doesn't help. Has been tinkering a little bit more out in the garage which causes increased hand pain. Knees don't seem to hurt that bad. AM stiffness: Lasts 2-4 hours Physical activity: Stretches in the morning, snowshoeing Functional Limitations: Avoids heavy lifting or squatting down Current Outpatient Prescriptions Medication Sig Dispense Refill [...] mL into the skin every 7 days. Tolerates ok without reported side effects. No recent infections. 13 Syringe 1 ??? hydrocodone-acetaminophen (NORCO) 5-325 mg per tablet Take 1 Tab by mouth every 4 hours as needed. As needed. Infrequent. Managed by PCP. ??? lisinopril (PRINIVIL, ZESTRIL) 5 mg tablet Take 5 mg by mouth daily. ??? meloxicam (MOBIC) 15 mg tablet Take 1 Tab by mouth daily. 90 Tab 3 ??? simvastatin (ZOCOR) 40 [...] Cancer Father prostate ??? Heart Disease Father MS at 54 ??? Heart Disease Brother at age 40 History Social History ??? Marital Status: Social History Main Topics ??? Smoking status: Never Smoker ??? Smokeless tobacco: Former User Quit date: 09/15/1979 ??? Alcohol Use: Yes Comment: very rarely ??? Drug Use: Not on file REVIEW OF SYSTEMS: Yes No Yes No Fever x Joint pain x Fatigue x Muscle pain x Night sweats x Morning stiffness x Weight change x If yes, duration 2 to 4 hours Gain or loss? Numbness/tingling x Eye [...] nourished male in no acute distress. BP 117/61 Pulse 63 Resp 18 Ht 168.1 cm (66.2) Wt 65.772 kg (145 lb) BMI 23.28 kg/m2 HEENT: PERRL, EOM's intact, no occular inflammation. Oropharynx clear, throat normal without erythema or exudate, no oral ulcers. No lymphadenopathy. RESPIRATORY: Clear to auscultation bilaterally; no adventitious sounds. CARDIOVASCULAR: Regular rate and rhythm, normal S1S2, no murmurs/gallops/rubs. SKIN: No rashes. NEUROLOGIC: Mental status normal. Gait normal without assistive device. Moves on/off exam table independently. Muscle strength not formally assessed but moving all extremities against gravity. MUSCULOSKELETAL: A complete msk exam including bilateral upper and lower extremities was done and was normal except for abnormal findings shown on homonculus. LABS: Phlebotomy Only on 09/14/2013 Component Date Value ??? Total Alkaline Phosphata* 09/14/2013 99 ??? AST 09/14/2013 31 ??? ALT 09/14/2013 39 ??? Albumin 09/14/2013 4.6 ??? Creatinine 09/14/2013 1.00 ? ? GFR, Calculated 09/14/2013 >60 ??? Sed. Rate Westergren 09/14/2013 2 ??? WBC 09/14/2013 4.71 ??? RBC 09/14/2013 4.90 ??? Hemoglobin 09/14/2013 15.3 ??? HCT 09/14/2013 42.8 ??? MCV 09/14/2013 87 ??? MCH 09/14/2013 31.2 ??? MCHC 09/14/2013 35.7 ??? PLT 09/14/2013 185 ??? RDW-CV 09/14/2013 13.5 ??? Neutrophils 09/14/2013 56.2 ??? Lymphocytes 09/14/2013 32.3 ??? Monocytes 09/14/2013 8.8 ??? Eosinophils 09/14/2013 2.0 ??? Basophils 09/14/2013 0.7 ??? ABS Neutrophils 09/14/2013 2.65 ??? ABS Lymphs 09/14/2013 1.52 ??? ABS Monocytes 09/14/2013 0.41 ??? ABS Eosinophils 09/14/2013 0.09 ??? ABS Basophils 09/14/2013 0.03 ??? Type of Diff: 09/14/2013 Automated Imaging: None recent/pertinent Impression/Plan: Ankylosing spondylitis. For the most part has [...] how much underlying OA may be contributing? Sed rate low (2) last visit (in September). Will try a different NSAID. If not effective plan to adjust Enbrel next. 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 Labs up to date. CBC ok. Renal and hepatic function normal. Repeat every 6-12 months while on a TNF-inhibitor and NSAID therapy. Patient Instructions: 1. Stop Meloxicam. I want you to try Naproxen instead. This is also an anti- inflammatory medicationbut may work a bit better for you. You will take 1 tab (500 mg) twice daily. Take this with food toprotect your stomach. Do not take other anti-inflammatories (such as Meloxicam, Ibuprofen or Aleve)with this. You can still take Tylenol as needed. 2. If Naproxen isn't effective you can stop it and go back to Meloxicam. In this case I think you should also consider increasing Enbrel to once weekly to see if this helps with your joint pain. If no improvement in 3 months go back to every other week. 3. Follow up in 6 months, sooner as needed. Barriers to learning identified: No Patient verbalizes understanding and agrees with plan: Yes I was supervised by Dr. Hewitt who was in the suite and immediately available for the entire time the service was provided. BRANDY Steve 03/22/2014 13:01 Attestation statement: Supervising Physician Sobeida Hewitt MD documented in this encounter Plan of Treatment Upcoming Encounters Date Type Department Care Team (Late st Contact Info) Description 01/17/2024 9:00 EST Office Visit [facility]ology & Immunology [address] [phone] Butch Blair NP [address] [place] [phone] 07/26/2024 9:00 EDT Office Visit [facility] [address] [phone] Riri Seymour MD [address] [place] [phone] documented as of this encounter Visit Diagnoses Diagnosis Ankylosing spondylitis ([facility])- Primary Ankylosing spondylitis Generalized osteoarthrosis, involving multiple sites Encounter for long-term (current) use of other medications documented in this encounter Discontinued Medications Medication Sig Discontinue Reason Start Date End Da te meloxicam (MOBIC) 15 mg tablet Take 1 Tab by mouth daily. Alternate therapy 09/14/2013 03/22/2014 documented as of this encounter Care Teams Heavy Equipment Field Mechanic Relationship Specialty Start Date End Date Olaf Sahni MD PCP - General 09/20/08 11/05/20 documented as of this encounter
--- OUTSIDE RECORDS SUMMARY | 2023-11-02 04:06 | XMS_ITS | Encounter Summary ---
Author Organization [facility] Address [address] [place] [address] Care Team Providers Care Burrer Operator Name Role Phone Olaf Sahni MD Primary Care Provider Gustavo aldana Encounter Details Date Type Department Care Team (Late st Contact Info) Description 09/04/2020 Orders Only [facility] Rheumatology Immunology [address] [address] Rosa Beard RN Social History Tobacco Use Types Packs/Day [...] Info) Description 01/17/2024 9:00 EST Office Visit [facility] Rheumatology & Immunology [address] [phone] Butch Blair, SHEELA [address] [facility] [address] [place] [phone] 07/26/2024 9:00 EDT Office Visit [facility] Rheumatology & Immunology - [facility] [address] [place] [address] Riri Seymour MD [address] [phone] documented as of this encounter Visit Diagnoses Not on filedocumented in this encounter Care Teams Burrer Operator Relationship Specialty Start Date End Date Olaf Sahni MD PCP - General 09/20/08 11/05/20 documented as of this encounter
--- OUTSIDE RECORDS SUMMARY | 2023-11-02 04:06 | XMS_ITS | Encounter Summary ---
Author Organization [facility] Address [address] [place] [address] Care Team Providers Care Executive Vice President Of Sales Name Role Phone Olaf Sahni MD Primary Care Provider U lisandraailable Reason for Visit * Reason Onset Date Comments Pre-visit Orders 11/03/2020 Encounter Details Date Type Department Care Team (Late st Contact Info) Description 11/03/2020 Telephone [facility] Rheumatology & Immunology - [address] [phone] Riri Seymour MD [address] [place] [address], [address] [place] [phone] Pre-visit Orders Social History Tobacco Use Types Packs/Day Years [...] encounter Miscellaneous Notes * Telephone Encounter - Shadia Boyer - 11/03/2020 0907 EDT Patients made aware that x-rays do not require an appointment, patients stated they will come early on 11/07 and do the x-rays. * Telephone Encounter - Jaleesa James - 11/03/2020 0847 EDT Patient's calling to schedule an x-ray for patient. She states she was unsure whom to call forx-ray scheduling. Patient's states would prefer to get x-rays completed prior to upcoming appointment with on 11/06 at 0920. Please call back to advise. documented in this encounter Plan of Treatment Upcoming Encounters Date Type Department Care Team (Late st Contact Info) Description 01/17/2024 9:00 EST Office Visit [facility] Rheumatology & Immunology [address] [phone] Butch Blair NP [address] [place] [phone] 07/26/2024 9:00 EDT Office Visit [facility] Rheumatology & Immunology [address] [phone] Riri Seymour MD [address] [place] [phone] documented as of this encounter Visit Diagnoses Not on filedocumented in this encounter Care Teams Executive Vice President Of Sales Relationship Specialty Start Date End Date Olaf Sahni MD PCP - General 09/20/08 11/05/20 documented as of this encounter
--- OUTSIDE RECORDS SUMMARY | 2023-11-02 04:06 | XMS_ITS | Encounter Summary ---
Author Organization [facility] Address [address] [place] [address] Care Team Providers Care College Tutor Name Role Phone Chanell Maureen García SOCIAL DIRECTOR Primary Care Provider [phone] Reason for Visit * Reason Comments Other Encounter Details Date Type Department Care Team (Late st Contact Info) Description 08/09/2021 Refill [facility] [place] [facility] Rheumatology & Immunology - [address] [phone] Alanna Mccann MD [address] [place] [address], [address] [place] [phone] Other Social History Tobacco Use [...] A WEEK 12 mL 1 08/11/2021 03/09/2022 documented in this encounter Plan of Treatment Upcoming Encounters Date Type Department Care Team (Late st Contact Info) Description 01/17/2024 9:00 EST Office Visit [facility] [place] [facility] Rheumatology & Immunology [address] [phone] Butch Blair NP [address] [place] [address] [phone] 07/26/2024 9:00 EDT Office Visit [facility] [place] [facility] Rheumatology & Immunology [address] [phone] Riri Seymour MD [address] [place] [phone] documented as of this encounter Visit Diagnoses Diagnosis Ankylosing spondylitis of multiple sites in spine ([facility]-CMS)- Primary Ankylosing spondylitis documented in this encounter Discontinued Medications Medication Sig Discontinue Reason Start Date End Da te etanercept (ENBREL SURECLICK) 50 mg/mL (1 mL) subcutaneous pen Inject 1 mL into the skin once a week. Dispense pen instead of pre-filled syringe 02/12/2021 08/11/2021 documented as of this encounter Care Teams College Tutor Relationship Specialty Start Date End Date Maureen Lua NP [address] [place] [address] PCP - General 11/06/20 documented as of this encounter
--- OUTSIDE RECORDS SUMMARY | 2023-11-02 04:06 | XMS_ITS | Encounter Summary ---
Author Organization [facility] Address [address] [place] [address] Care Team Providers Care Vamp Throater Name Role Phone Maureen Lua [employer] Primary Care Provider [phone] Reason for Referral * Radiology Services (Routine) - Closed Specialty Diagnoses / Procedures Referred By Contac t Referred To Contact Diagnoses Ankylosing spondylitis, unspecified site of spine ([facility]) Low back pain, unspecified back pain laterality, unspecified chronicity, unspecified whether sciatica present Procedures XR SACROILIAC JOINTS 3 OR MORE VIEWS Riri Seymour MD [address] [place] [phone] Referral ID Status Reason Start Date Expiration Date Visits Re quested Visits Authorized [id number] Closed 08/29/2020 1 1 * Radiology Services (Routine) - Closed Specialty Diagnoses / Procedures Referred By Contac t Referred To Contact Diagnoses Pain in both knees, unspecified chronicity Procedures XR KNEE RIGHT 3 VIEWS Riri Seymour MD [address] [place] [phone] Referral ID Status Reason Start Date Expiration Date Visits Re quested Visits Authorized [id number] Closed 08/29/2020 1 1 * Radiology Services (Routine) - Closed Specialty Diagnoses / Procedures Referred By Contac t Referred To Contact Diagnoses Pain in both knees, unspecified chronicity Procedures XR KNEE LEFT 3 VIEWS Riri Seymour MD [address] [place] [phone] Referral ID Status Reason Start Date Expiration Date Visits Re quested Visits Authorized [id number] Closed 08/29/2020 1 1 * Radiology Services (Routine) - Closed Specialty Diagnoses / Procedures Referred By Contac t Referred To Contact Diagnoses Arthralgia of both hands Procedures XR HAND LEFT 1-2 VIEWS Riri Seymour MD [address] [place] [phone] Referral ID Status Reason Start Date Expiration Date Visits Re quested Visits Authorized [id number] Closed 08/29/2020 1 1 * Radiology Services (Routine) - Closed Specialty Diagnoses / Procedures Referred By Contac t Referred To Contact Diagnoses Ankylosing spondylitis, unspecified site of spine ([facility]) Procedures XR HAND RIGHT 1-2 VIEWS Riri Seymour MD [address] [place] [phone] Referral ID Status Reason Start Date Expiration Date Visits Re quested Visits Authorized [id number] Closed 08/29/2020 1 1 Reason for Visit * Radiology Services (Routine) - Closed Specialty Diagnoses / Procedures Referred By Contac t Referred To Contact Diagnoses Ankylosing spondylitis, unspecified site of spine (HCC-CMS) Procedures XR HAND RIGHT 1-2 VIEWS Riri Seymour MD [address] [place] [phone] Referral ID Status Reason Start Date Expiration Date Visits Re quested Visits Authorized [id number] Closed 08/29/2020 1 1 Encounter Details Date Type Department Care Team (Latest Contact Info) Description 11/06/2020 8:00 EDT - 11/06/2020 23:59 EDT Hospital Encounter [facility] Radiology [place] [address] Ankylosing spondylitis, unspecified site of spine (HCC-CMS); Arthralgia of both hands; Pain in both knees, unspecified chronicity; Low back pain, unspecified back pain laterality, unspecified chronicity, unspecified whether sciatica present Discharge Disposition: Home or Self Care Social [...] tablet Take 1 Tablet by mouth daily. hydrocodone-acetamino phen (NORCO) 5-325 mg per tablet Take 1 Tablet by mouth every 4 hours as needed. MULTIVITAMIN ORAL Take 1 Tablet by mouth daily. simvastatin (ZOCOR) 40 mg tablet Take 1 Tablet by mouth daily. etanercept (ENBREL) 50 mg/mL (0.98 mL) injection Inject 1 mL into the skin every 14 days 6 Syringe 1 06/19/2014 12/29/2020 lisinopril (PRINIVIL, ZESTRIL) 5 mg tablet Take 10 mg by mouth daily. 07/05/2022 naproxen (NAPROSYN) 500 mg tablet Take 1 tablet twice daily as needed for pain. 60 Tablet 3 08/29/2020 12/29/2020 pregabalin (LYRICA) 50 mg capsule Take 1 capsule bedtime for 2 weeks, then increase to 2 capsules afterwards 60 capsule 3 08/29/2020 12/29/2020 documented as of this encounter Discharge Disposition Disposition Code Departure Means Destination Home or Self Care documented in this encounter Plan of Treatment Upcoming Encounters Date Type Department Care Team (Late st Contact Info) Description 01/17/2024 9:00 EST Office Visit [facility] Rheumatology & Immunology [address] [phone] Butch Blair NP [address] [place] [phone] 07/26/2024 9:00 EDT Office Visit [facility] Rheumatology & Immunology [address] [phone] Riri Seymour MD [address] [place] [phone] documented as of this encounter Procedures Procedure Name Priority Date/Time Associated Diagnosis Comments XR SACROILIAC JOINTS 3 OR MORE VIEWS Routine 11/06/2020 8:36 EDT Ankylosing spondylitis, unspecified site of spine (HCC-CMS) Low back pain, unspecified back pain laterality, unspecified chronicity, unspecified whether sciatica present XR KNEE RIGHT 3 VIEWS Routine 11/06/2020 8:36 EDT Pain in both knees, unspecified chronicity XR KNEE LEFT 3 VIEWS Routine 11/06/2020 8:36 EDT Pain in both knees, unspecified chronicity XR HAND RIGHT 1-2 VIEWS Routine 11/06/2020 8:36 EDT Ankylosing spondylitis, unspecified site of spine ([facility]) XR HAND LEFT 1-2 VIEWS Routine 11/06/2020 8:36 EDT Arthralgia of both hands documented in this encounter Results * XR SACROILIAC JOINTS [...] ?? Known ankylosing spondylitis, [facility] care [facility] Ordered for new baseline. COMPARISON: None. Procedure Note Elder Santiago, DO - 11/06/2020 EXAM/TECHNIQUE: XR SACROILIAC JOINTS 3 OR MORE VIEWS 11/06/2020 8:00 AM HISTORY: Known ankylosing spondylitis, previous care at [facility]. Ordered for newbaseline. COMPARISON: None. IMPRESSION FINDINGS [...] and inferior margins of the patella. Riri COUCH DIAGNOSTIC I MAGING ORDERABLES * XR KNEE [...] the second PIP joint. Riri Seymour MD IMG DIAGNOSTIC I MAGING [...] the second PIP joint. Riri Seymour MD IMG DIAGNOSTIC I MAGING ORDERABLES documented in this encounter Visit Diagnoses Diagnosis Ankylosing spondylitis, unspecified site of spine (HCC-CMS) Arthralgia of both hands Pain in both knees, unspecified chronicity Low back pain, unspecified back pain laterality, unspecified chronicity, unspecified whether sciatica present documented in this encounter Care Teams Vamp Throater Relationship Specialty Start Date End Date Maureen Lua NP [address] [place] [address] PCP - General 11/06/20 documented as of this encounter
--- OUTSIDE RECORDS SUMMARY | 2023-11-02 04:07 | XMS_ITS | Encounter Summary ---
Author Organization [facility] Address [address] [place] [address] Care Team Providers Care Entry Level Electrical Engineer Name Role Phone Olaf Sahni MD Primary Care Provider U lisandraailable Reason for Visit * Reason Comments Joint Pain all over, right knee , elbows, are the worse Back Pain feels like burning Encounter Details Date Type Department Care Team (Latest Contact Info) Description 03/23/2012 10:10 EST Office Visit [facility] Rheumatology & Immunology - [facility] [address] [place] [address] Jaciel Abrams MD Ankylosing spondylitis ([facility]) (Primary Dx); Encounter for long-term (current) [...] Sign Reading Time Taken Comments Blood Pressure 119/80 03/23/2012 0934 EST Pulse 78 03/23/2012 0934 EST Temperature - - Respiratory Rate 18 03/23/2012 0934 EST Oxygen Saturation - - Inhaled Oxygen Concentration - - Weight 68.9 kg (152 lb) 03/23/2012 0934 EST Height 167.6 cm (5' 6) 03/23/2012 0934 EST Body Mass Index 24.53 03/23/2012 0934 EST documented in this encounter Patient Instructions * Patient Instructions* Jaciel Abrams MD - 03/23/2012 10:32 EST Try stopping indocin and see how you do without an anti-inflammatory medication. You could also take ibuprofen over the counter. However if pain is worse, fill prescription for meloxicam and take one daily preferably with food. Try reducing enbrel frequency to every 2 weeks. Have lab tests done when you have your next blood testing for Dr. Sahni. documented in this encounter Ordered Prescriptions Prescription Sig Dispensed Refills Start Date End Da te meloxicam (MOBIC) 7.5 mg tabletIndications:Ankylosi ng spondylitis ([facility]),Encounter for long-term (current) use of other medications Take 1 Tab by mouth daily. 30 Tab 11 03/23/2012 03/22/2013 documented in this encounter Progress Notes * Jaciel Abrams MD - 03/23/2012 0937 EST Division of Rheumatology and Clinical Immunology HPI: Six month follow up for ankylosing spondylitis. When last seen in September, he was doing well except for knee pain. X-rays showed patello-femoral arthritis. I spoke with him about PT but he was already doing exercises and would continue. Still having pain in both knees with activity. Trying to remain active, eg snowshoeing. Ankylosing spondylitis is stable. Some burning in spine and some aching in neck. Stiff in a.m for 2-3 hours. On etanercept 50 mg every 10 days. Taking hydrocodone intermittently at night to help withsleep. 40 tabs lasts about 3 months. Also has been told by insurance that they will not be prescribing the indocin and that he would need to switch to either diclofenac, ibuprofen or meloxicam. Dry eyes but no iritis. No mouth or nose sores. Still fatigued and has occasional cough. Current Outpatient Prescriptions Medication Sig Dispense Refill ??? indomethacin (INDOCIN) 25 mg capsule Take 1 Cap by mouth daily. 30 Cap 5 ??? etanercept (ENBREL) 50 mg/mL (0.98 mL) injection Inject 1 mL into the skin every 10 days. 8 Syringe 4 ??? hydrocodone-acetaminophen (NORCO) 5-325 mg per tablet Take 1 Tab by mouth every 4 hours as needed. ??? simvastatin (ZOCOR) 40 mg tablet Take 40 mg by mouth daily. ??? cyanocobalamin (VITAMIN B12) 1,000 mcg/mL injection Inject 100 mcg into the muscle every 28 days. ??? lisinopril (PRINIVIL, ZESTRIL) 5 mg tablet Take 5 mg by mouth daily. ??? rabeprazole (ACIPHEX) 20 mg tablet Take 20 mg by mouth daily. ??? cyanocobalamin (VITAMIN B-12) 1,000 mcg tablet Take 1,000 mcg by mouth daily. ??? Aspirin 81 mg Tab Take 81 mg by mouth daily. Allergies include: Review of patient's allergies indicates no known allergies. Past Medical History Diagnosis Date ??? Arthritis ??? Hypertension ??? Hypercholesteremia ??? Vitamin B 12 deficiency ??? Osteoporosis Past Surgical History Procedure Date ??? Foot surgery 1980 Replaced joint in big toe Family History Problem Relation Age of Onset ??? Cancer Mother throat ca ??? Cancer Father prostate ??? Heart Disease Father [place] at 54 ??? Heart Disease Brother at [...] change x If yes, duration 2 to 3 hours Gain or loss? Numbness/tingling x Eye [...] x Hair Loss x PHYSICAL EXAMINATION: BP 119/80 Pulse 78 Resp 18 Ht 167.6 cm (66) Wt 68.947 kg (152 lb) BMI 24.53 kg/m2 Constitutional: thin, healthy and not in acute distress HEENT: No mouth sores RESPIRATORY: clear / equal BS; no adventitious sounds bilaterally HEART: RRR. No murmur MUSCULOSKELETAL: Spine: No significant tenderness. Normal range of motion of the neck and lower spine. Shoulder/Elbow: No significant tenderness, swelling, effusions, erythema or warmth present. Appropriate range of motion present. Wrist/Hand: He has bony enlargement of PIPs but no swelling. Otherwise no significant tenderness, swelling, effusions, erythema or warmth present. Appropriate range of motion present. Hips/Knee: Mild pain with flexion of knees. Difficulty squatting and some crepitance in knees. Hipshave full ROM. Ankle/Foot: No significant tenderness, swelling, effusions, erythema or warmth present. Appropriaterange of motion present. LABS Lab Results Component Value Date WBC 5.54 03/23/2011 WBC 5.14 03/25/2009 HGB 14.2 03/23/2011 HGB 15.2 03/25/2009 HCT 40.7 03/23/2011 HCT 43.1 03/25/2009 MCV 89 03/23/2011 MCV 92 03/25/2009 PLT 186 03/23/2011 PLT 176 03/25/2009 Lab Results Component Value Date CREATININE 0.99 03/23/2011 CREATININE 0.97 03/25/2009 BUN 19 03/15/2006 NA 143 03/15/2006 CL 100 03/15/2006 CO2 31 03/15/2006 Lab Results Component Value Date ALT 30 03/23/2011 ALT 32 03/25/2009 AST 22 03/23/2011 AST 27 03/25/2009 ALKPHOS 101 03/23/2011 ALKPHOS 84 03/25/2009 Lab Results Component Value Date SEDRATE 11 09/20/2006 Lab Results Component Value Date CRP 14.2* 05/31/2003 Imaging: Diagnosis / Assessment: 1. Ankylosing spondylitis doing very well. No stigmata of disease 2. Patello-femoral arthritis. No progression Recommendations/Evaluation: 1. Decrease frequency of enbrel to every 2 weeks. 2. Change indocin to meloxicam 7.5 mg. He should try going of indocin for a few days and see if he needs any NSAID before filling meloxicam prescription. 3. CBC and CMP when he has blood work with Dr. Sahni. 4. Follow up in 6 months. JACIEL ABRAMS MD 03/23/2012 10:15 documented in this encounter Plan of Treatment Upcoming Encounters Date Type Department Care Team (Late st Contact Info) Description 01/17/2024 9:00 EST Office Visit [facility] Rheumatology & Immunology [address] [phone] Butch Blair NP [address] [place] [phone] 07/26/2024 9:00 EDT Office Visit [facility] Rheumatology & Immunology [address] [phone] Riri Seymour MD [address] [place] [phone] documented as of this encounter Visit Diagnoses Diagnosis Ankylosing spondylitis ([facility])- Primary Ankylosing spondylitis Encounter for long-term (current) use of other medications documented in this encounter Discontinued Medications Medication Sig Discontinue Reason Start Date End Da te indomethacin (INDOCIN) 25 mg capsuleIndications:Ankylo sing spondylitis ([facility]) Take 1 Cap by mouth daily. Formulary change 12/28/2011 03/23/2012 documented as of this encounter Care Teams Entry Level Electrical Engineer Relationship Specialty Start Date End Date Olaf Sahni MD PCP - General 09/20/08 11/05/20 documented as of this encounter
--- OUTSIDE RECORDS SUMMARY | 2023-11-02 04:07 | XMS_ITS | Encounter Summary ---
Author Organization [facility] Address [address] [place] [address] Care Team Providers Care Family Day Care Provider Name Role Phone Olaf Sahni MD Primary Care Provider U navailable Reason for Visit * Reason Onset Date Comments Medications Refill 02/10/2010 Encounter Details Date Type Department Care Team (Late st Contact Info) Description 02/10/2010 Refill [facility] Rheumatology & Immunology [address] [phone] Jaciel Clancy MD Medications Refill Social History Tobacco Use Types [...] Dispensed Refills Start Date End Da te indomethacin (INDOCIN) 25 mg capsuleIndications:Ankylos ing spondylitis (HCC-CMS) Take 1 Cap by mouth daily. 30 Cap 5 02/10/2010 03/24/2010 documented in this encounter Plan of Treatment Upcoming Encounters Date Type Department Care Team (Late st Contact Info) Description 01/17/2024 9:00 EST Office Visit [facility] Rheumatology & Immunology [address] [phone] Butch Blair NP [address] [facility] [address] [place] [phone] 07/26/2024 9:00 EDT Office Visit [facility] Rheumatology & Immunology - [facility] [address] [place], [place] [phone] Riri Seymour MD 111 [facility], [address] [place] [phone] documented as of this encounter Visit Diagnoses Diagnosis Ankylosing spondylitis (HCC-CMS)- Primary Ankylosing spondylitis documented in this encounter Discontinued Medications Medication Sig Discontinue Reason Start Date End Da te indomethacin (INDOCIN) 25 mg capsuleIndications:Ankylo sing spondylitis (HCC-CMS) Take 1 Cap by mouth daily. Reorder 09/23/2009 02/10/2010 documented as of this encounter Care Teams Family Day Care Provider Relationship Specialty Start Date End Date Olaf Sahni MD PCP - General 09/20/08 11/05/20 documented as of this encounter
--- OUTSIDE RECORDS SUMMARY | 2023-11-02 04:07 | XMS_ITS | Encounter Summary ---
Author Organization [facility] Address [address] [place] [address] Care Team Providers Care Conference Planner Name Role Phone Olaf Sahni MD Primary Care Provider U lisandraaildino Reason for Visit * Reason Onset Date Comments Medications Refill 12/28/2011 Encounter Details Date Type Department Care Team (Late st Contact Info) Description 12/28/2011 Refill [facility] Rheumatology & Immunology [address] [address] Jaciel Clancy MD Medications Refill Social History [...] 50 mg/mL (0.98 mL) injectionIndications:Anky losing spondylitis (HCC-CMS) Inject 1 mL into the skin every 10 days. 8 Syringe 4 12/28/2011 09/19/2012 indomethacin (INDOCIN) 25 mg capsuleIndications:Ankylo sing spondylitis (HCC-CMS) Take 1 Cap by mouth daily. 30 Cap 5 12/28/2011 03/23/2012 documented in this encounter Plan of Treatment Upcoming Encounters Date Type Department Care Team (Late st Contact Info) Description 01/17/2024 9:00 EST Office Visit [facility] Rheumatology & Immunology [address] [address] Butch Blair NP 111 [facility] 5 [place] [phone] 07/26/2024 9:00 EDT Office Visit [facility] Rheumatology & Immunology - [facility] [address] [place], [place] [phone] Riri Seymour MD [address] [phone] documented as of this encounter Visit Diagnoses Diagnosis Ankylosing spondylitis ([facility])- Primary Ankylosing spondylitis documented in this encounter Discontinued Medications Medication Sig Discontinue Reason Start Date End Da te indomethacin (INDOCIN) 25 mg capsuleIndications:Ankylo sing spondylitis ([facility]) Take 1 Cap by mouth daily. Reorder 06/17/2011 12/28/2011 etanercept (ENBREL) 50 mg/mL (0.98 mL) injectionIndications:Anky losing spondylitis ([facility]) Inject 1 mL into the skin every 10 days. Reorder 09/16/2011 12/28/2011 documented as of this encounter Care Teams Conference Planner Relationship Specialty Start Date End Date Olaf Sahni MD PCP - General 09/20/08 11/05/20 documented as of this encounter
--- OUTSIDE RECORDS SUMMARY | 2023-11-02 04:07 | XMS_ITS | Encounter Summary ---
Author Organization [facility] Address [address] [place] [address] Care Team Providers Care Customer Service Security Officer Name Role Phone Olaf Sahni MD Primary Care Provider U lisandraailable Reason for Visit * Reason Onset Date Comments Medications Refill 10/22/2009 Encounter Details Date Type Department Care Team (Late st Contact Info) Description 10/22/2009 Refill [facility] Rheumatology & Immunology - [address] [phone] Jaciel Clancy MD Medications Refill Social History [...] 50 mg/mL (0.98 mL) injectionIndications:Anky losing spondylitis ([facility]) Inject 1 mL into the skin every 7 days. 4 Syringe 9 10/22/2009 09/14/2010 documented in this encounter Miscellaneous Notes * Telephone Encounter - Chuckie Jeffries - 10/22/2009 1129 EDT ENBREL 50MG NEEDS TO BE CALLED INTO BIOSCRIPT [phone] documented in this encounter Plan of Treatment Upcoming Encounters Date Type Department Care Team (Late st Contact Info) Description 01/17/2024 9:00 EST Office Visit [facility] Rheumatology & Immunology [address] [phone] Butch Blair NP [address] [place] [phone] 07/26/2024 9:00 EDT Office Visit [facility] Rheumatology & Immunology [address] [phone] Riri Seymour MD [address] [place] [phone] documented as of this encounter Visit Diagnoses Diagnosis Ankylosing spondylitis ([facility])- Primary Ankylosing spondylitis documented in this encounter Discontinued Medications Medication Sig Discontinue Reason Start Date End Da te etanercept (ENBREL) 50 mg/mL (0.98 mL) injectionIndications:Anky losing spondylitis ([facility]) Inject 50 mg into the skin every 7 days. Reorder 10/22/2009 documented as of this encounter Care Teams Customer Service Security Officer Relationship Specialty Start Date End Date Olaf Sahni MD PCP - General 09/20/08 11/05/20 documented as of this encounter
--- OUTSIDE RECORDS SUMMARY | 2023-11-02 04:07 | XMS_ITS | Encounter Summary ---
Author Organization [facility] Address [address] [place] [address] Care Team Providers Care Electrical Appliance Mechanic Name Role Phone Olaf Sahni MD Primary Care Provider Gustavo aldana Encounter Details Date Type Department Care Team (Late st Contact Info) Description 03/21/2007 Before PRISM Converted Visit ([facility]) [facility] - [facility] conversion [address] [place] [address] Jaciel Clancy MD Social History Tobacco Use Types Packs/Day Years Used Date Smoking Tobacco: Never Assessed Sex and Gender Information Value Date Recorded Sex Assigned at Not on file Gender Identity Male 11/06/2020 8:02 EDT Sexual Orientation Not on file documented as of this encounter Progress Notes * Jaciel Clancy MD - 01/14/2009 0534 EST DIVISION OF RHEUMATOLOGY PROGRESS/FOLLOWUP NOTE - 03/21/2007 PROBLEM Ankylosing spondylitis. SUBJECTIVE Erasto has done relatively well since his visit six months ago. 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 I think he realizes that long hauls would probably not be in his best health. His back is somewhat stiff, but overall he feels very well since he started his Enbrel. He is down to taking Indocin just 25 mg daily. He remains on Actonel 35 mg weekly as well. His last bone density was in August of 2005. He receives B12 injections every month and that has been for about two years. He continues to see Dr. Sahni for his shortness of breath, and underwent PFTs yesterday and a chest x-ray. He knows the latter was normal, but I do not think he has heard the results of the PFTs. He says the shortness of breath is not as severe as it had been. He is not a smoker, although hewas exposed to childhood smoke. He has had no fractures. He denies any peripheral joint pain. He denies any eye irritation or mouthsores and he has had no difficultly swallowing. No chest pains no diarrhea, or other abdominal complaints. He is stiff in the morning for about two hours, presumably most of that in his back. He has had no paresthesias or weakness. Denies any urinary symptoms. He has some trouble sleeping because of discomfort, but denies any anxiety or depression. He has had no rashes, itching. No Raynauds. OBJECTIVE Physical exam: Height 66 inches, weight 146 pounds, blood pressure 110/80 and pulse 76. Pain intensity 2/10 in his back. The patient looks well. Moves quite easily. His lungs are clear. Heart tones normal. His qfzsim-xh-pdjkk distance 9 cm. Chest expansion 5 cm and yedc-fj-edjj distance 0 cm. He has relatively good range of motion of his lower back. Sedimentation rate last September was 11. ASSESSMENT Ankylosing spondylitis. Doing very well. His sedimentation rate has gone down significantly since he has been on the Enbrel which he is tolerating well. PLAN 1. Continue Enbrel but I would like him to try going to every 10 days with the injections. 2. Lab: ESR, creatinine and CBC. These will be done in conjunction with Dr. Sahni lab for monitoring his simvastatin. 3. Follow up in six months, with bone density at that time. If his bone density looks good I would like to stop his Actonel at that time. Signed by Jaciel Clancy MD 03/24/2007 09:14 Jaciel Clancy MD D: - Jaciel Clancy MD - dd Job ID: [id number] Doc ID: [id number] cc: Olaf Sahni MD documented in this encounter Plan of Treatment Upcoming Encounters Date Type Department Care Team (Late st Contact Info) Description 01/17/2024 9:00 EST Office Visit [facility] Rheumatology & Immunology [address] [phone] Butch Blair NP [address] [place] [phone] 07/26/2024 9:00 EDT Office Visit [facility] Rheumatology & Immunology [address] [phone] Riri Seymour MD [address] [place] [phone] documented as of this encounter Visit Diagnoses Not on filedocumented in this encounter Care Teams Electrical Appliance Mechanic Relationship Specialty Start Date End Date Olaf Sahni MD PCP - General 09/20/08 11/05/20 documented as of this encounter
--- OUTSIDE RECORDS SUMMARY | 2023-11-02 04:07 | XMS_ITS | Encounter Summary ---
Author Organization [facility] Address [address] [place] [address] Care Team Providers Care Filter Tank Tender Name Role Phone Unavailable Primary Care Provider Unavailabl e Encounter Details Date Type Department Care Team (Latest Contact Info) Description 04/17/2002 12:13 EST Hospital Encounter [facility] - Other [address] [place] [phone] Jaciel Clancy MD Unknown, Provider, Discharge Disposition: Auto Discharge Social History Tobacco Use Types Packs/Day Years Used Date Smoking Tobacco: Never Assessed Sex and Gender Information Value Date Recorded Sex Assigned at Not on file Gender Identity Male 11/06/2020 8:02 EDT Sexual Orientation Not on file documented as of this encounter Discharge Disposition Disposition Code Departure Means Destination Auto Discharge documented in this encounter Plan of Treatment Upcoming Encounters Date Type Department Care Team (Late st Contact Info) Description 01/17/2024 9:00 EST Office Visit [facility] Rheumatology & Immunology [address] [phone] Butch Blair NP [address] [place] [phone] 07/26/2024 9:00 EDT Office Visit [facility] Rheumatology & Immunology [address] [phone] Riri Seymour MD [address] [place] [phone] documented as of this encounter Procedures Procedure Name Priority Date/Time Associated Diagnosis Comments HEMAGRAM & DIFF Routine 04/17/2002 12:09 EST DMARD PROFILE Routine 04/17/2002 12:09 EST SED RATE Routine 04/17/2002 12:09 EST C REACTIVE PROTEIN Routine 04/17/2002 12 :09 EST documented in this encounter Results * (ABNORMAL) SED. RATE:WESTERGREN (04/17/2002 12:09 EST) [facility] Sed. Rate Westergren >100(H) 0 - 15 mm/hr [facility] 04/17/2002 12:0 9 EST 04/17/2002 12:17 EST Jaciel Clancy MD HEMATOLOGY & PF4 ORD ERABLES Performing Organization Address [facility] Co de Phone Number [facility] [address] [place] [address] * DMARD PROFILE (04/17/2002 12:09 EST) [facility] Total Alkaline Phosphatase 119 38 - 126 U/L [facility] AST 16 8 - 50 U/L [facility] ALT 17 15 - 75 U/L [facility] Albumin 4.0 3.0 - 5.5 g/dl [facility] Creatinine 1.0 0.7 - 1.5 mg/dl [facility] 04/17/2002 12:0 9 EST 04/17/2002 12:17 EST Jaciel Clancy MD CHEMISTRY & BLOOD GA S ORDERABLES Performing Organization Address [facility] Co de Phone Number [facility] [address] [place] [address] * (ABNORMAL) C-REACTIVE PROTEIN (04/17/2002 12:09 EST) [facility] C-Reactive Protein 7.2(H) <1.0 mg/dl [facility] 04/17/2002 12:0 9 EST 04/17/2002 12:17 EST Jaciel Clancy MD CHEMISTRY & BLOOD GA S ORDERABLES [facility] [address] [place] [address] * (ABNORMAL) HEMAGRAM & DIFF (04/17/2002 12:09 EST) Pathologist [facility] WBC 8.95 4.0 - 10.4 K/cmm [facility] RBC 4.37 4.36 - 5.78 M/cmm [facility] Hemoglobin 11.5(L) 13.8 - 17.3 gm/dl [facility] HCT 35.5(L) 39.5 - 50.2 % [facility] MCV 81 81 - 95 fl [facility] MCH 26.3(L) 27.6 - 33.0 pg [facility] MCHC 32.4(L) 32.8 - 36.4 gm/dl [facility] PLT 402(H) 141 - 320 K/cmm [facility] RDW-CV 15.4(H) 11.8 - 14.1 % [facility] % Neutrophils 81.7(H) 45.5 - 79.7 % [facility] % Lymphocytes 12.5(L) 15.0 - 46.8 % [facility] % Monocytes 5.0 1.8 - 12.0 % [facility] % Eosinophils 0.6 0.6 - 6.9 % [facility] % Basophils 0.2 0.2 - 1.4 % [facility] ABS Neutrophils 7.31 2.20 - 8.85 K/cmm [facility] ABS Lymphs 1.12 1.09 - 3.30 K/cmm [facility] ABS Monocytes 0.44 0.1 - 0.8 K/cmm [facility] ABS Eosinophils 0.06 0.03 - 0.61 K/cmm [facility] ABS Basophils 0.02 0.01 - 0.11 K/cmm [facility] Type of Diff: Automated [facility] 04/17/2002 12:0 9 EST 04/17/2002 12:17 EST Jaciel Clancy MD HISTORICAL LAB FOR S Q LOAD [facility] [address] [place] [address] documented in this encounter Visit Diagnoses Not on filedocumented in this encounter
--- OUTSIDE RECORDS SUMMARY | 2023-11-02 04:07 | XMS_ITS | Encounter Summary ---
Author Organization [facility] Address [address] [place] [address] Care Team Providers Care Return Agent Name Role Phone Olaf Sahni MD Primary Care Provider U lisandraaildino Reason for Visit * Reason Comments Back Pain Ankylosing spondylit is Encounter Details Date Type Department Care Team (Latest Contact Info) Description 03/24/2010 8:30 EST Office Visit [facility] Rheumatology & Immunology - [address] [phone] Jaciel Clancy MD Ankylosing spondylitis ([facility]) (Primary Dx) Social History Tobacco Use Types [...] Sign Reading Time Taken Comments Blood Pressure 120/76 03/24/2010 0810 EST Pulse 59 03/24/2010 0810 EST Temperature - - Respiratory Rate 14 03/24/2010 0810 EST Oxygen Saturation 98% 03/24/2010 0810 EST Inhaled Oxygen Concentration - - Weight 67.6 kg (149 lb) 03/24/2010 0810 EST Height 167.3 cm (5' 5.87) 03/24/2010 0810 EST Body Mass Index 24.15 03/24/2010 0810 EST documented in this encounter Ordered Prescriptions Prescription Sig Dispensed Refills Start Date End Da te indomethacin (INDOCIN) 25 mg capsuleIndications:Ankylos ing spondylitis ([facility]) Take 1 Cap by mouth daily. 30 Cap 5 03/24/2010 08/10/2010 documented in this encounter Progress Notes * aJciel Clancy MD - 03/24/2010 0836 EST Subjective: Patient ID: Erasto Chapman is an 49 y.o. male. Chief Complaint Patient presents with ??? Follow-up Ankylosing Spondylitis HPI Erasto is here for scheduled appointment for . Having some burning in his mid back and stiffnessin neck but no loss of motion except if stiff which can last 1-2 days. Hands ache at times but no radiation of pain into legs or arms. Has been snowshoeing. Had lab on 03/09/10 with normal cholesteral and BMP. Creat of 1.1. On simvastatin and lisinopril. No GI complaints. On aciphex. Remains on enbrel weekly. Has tried to taper frequency in past but was unsuccessful. No infections.Taking indomethacin tablets 25 mg in the a.m. Only. Tried two daily and noted no difference. Stiff for 2-3 hours. Has hydrocodone from Dr. Sahni and takes about 40 tablets over 3 months. Patient Active Problem List Diagnoses Code ??? Ankylosing spondylitis 720.0 ??? B12 deficiency 266.2CU ??? Hypertension 401.9AJ Past Medical History Diagnosis Date ??? Arthritis ??? Hypertension ??? Hypercholesteremia ??? Vitamin B 12 deficiency ??? Osteoporosis Past Surgical History Procedure Date ??? Foot surgery 1980 Replaced joint in big toe Family History Problem Relation Age of Onset ??? Cancer Mother throat ca ??? Cancer Father prostate ??? Heart Disease Father [place] at 54 ??? Heart Disease Brother at age 40 Social History Substance Use Topics ??? Tobacco Use: Never ??? Alcohol Use: Yes Current outpatient prescriptions ordered prior to encounter Medication Sig Dispense Refill ??? indomethacin (INDOCIN) 25 mg capsule Take 1 Cap by mouth daily. 30 Cap 5 ??? etanercept (ENBREL) 50 mg/mL (0.98 mL) injection Inject 1 mL into the skin every 7 days. 4 Syringe 9 ??? simvastatin (ZOCOR) 40 mg tablet Take [...] Tab Take 81 mg by mouth daily. No Known Allergies ROS - See HPI Fatigue; Chronic intermittent cough. Non productive. Occurs with exertion and in cold. Difficulty sleeping. Objective: BP 120/76 Pulse 59 Resp 14 Ht 167.3 cm (65.87) Wt 67.586 kg (149 lb) SpO2 98% Physical Exam Seems to move easily. Lungs clear. Heart - RRR. Back has very good ROM. Head to wall 0 cm. Chest expansion 5 cm. No peripheral inflammation but has subluxed and overriding left toes. Has bunion although surgery done on that in past. Assessment: Ankylosing Spondylitis. Generally doing well. No inflammation. Deformity left foot long standing. Plan: Ankylosing spondylitis 1. Continue enbrel and indomethacin as he is now doing. 2. Discussed surgery on left foot. 3. Follow up 6 months. documented in this encounter Plan of Treatment Upcoming Encounters Date Type Department Care Team (Late st Contact Info) Description 01/17/2024 9:00 EST Office Visit [facility] Rheumatology & Immunology [address] [phone] Butch Blair NP [address] [place] [phone] 07/26/2024 9:00 EDT Office Visit [facility] Rheumatology & Immunology [address] [phone] Riri Seymour MD [address] [place] [phone] documented as of this encounter Visit Diagnoses Diagnosis Ankylosing spondylitis ([facility] Primary Ankylosing spondylitis documented in this encounter Discontinued Medications Medication Sig Discontinue Reason Start Date End Da te indomethacin (INDOCIN) 25 mg capsuleIndications:Ankylo sing spondylitis ([facility]) Take 1 Cap by mouth daily. Reorder 02/10/2010 03/24/2010 documented as of this encounter Historical Medications * This list may reflect changes made after this encounter. Medication Sig Dispensed Refills Start Date End Date hydrocodone-acetaminophen (NORCO) 5-325 mg per tablet Take 1 Tablet by mouth every 4 hours as needed. added in this encounter Care Teams Return Agent Relationship Specialty Start Date End Date Olaf Sahni MD PCP - General 09/20/08 11/05/20 documented as of this encounter
--- OUTSIDE RECORDS SUMMARY | 2023-11-02 04:07 | XMS_ITS | Encounter Summary ---
Author Organization [facility] Address [address] [place] [address] Care Team Providers Care Director Of Product Marketing Name Role Phone Unavailable Primary Care Provider Unavailabl e Encounter Details Date Type Department Care Team (Latest Contact Info) Description 06/06/2000 13:13 EDT Hospital Encounter [facility] - Other [address] [place] [phone] Jaciel Clancy MD Unknown, ProviderMD Discharge Disposition: Auto Discharge Social History Tobacco [...] Info) Description 01/17/2024 9:00 EST Office Visit [facility] Rheumatology & Immunology [address] [phone] Butch Blair NP [address] [place] [phone] 07/26/2024 9:00 EDT Office Visit [facility] Rheumatology & Immunology [address] [phone] Riri Seymour MD [address] [place] [phone] documented as of this encounter Procedures Procedure Name Priority Date/Time Associated Diagnosis Comments HEMAGRAM & DIFF Routine 06/06/2000 11:56 EDT DMARD PROFILE Routine 06/06/2000 11:56 EDT C REACTIVE PROTEIN Routine 06/06/2000 11 :56 EDT documented in this encounter Results * (ABNORMAL) DMARD PROFILE (06/06/2000 11:56 EDT) Pathologist [facility] Total Alkaline Phosphatase 152(H) 38 - 126 U/L [facility] AST 14 8 - 50 U/L [facility] ALT 26 15 - 75 U/L [facility] Albumin 3.9 3.0 - 5.5 g/dl [facility] Creatinine 0.9 0.7 - 1.5 mg/dl [facility] 06/06/2000 11:5 6 EDT 06/06/2000 12:01 EDT Jaciel Clancy MD CHEMISTRY & BLOOD GA S ORDERABLES Performing Organization Address City/[facility] Co de Phone Number [facility] [address] [place] [address] * (ABNORMAL) C-REACTIVE PROTEIN (06/06/2000 11:56 EDT) Pathologist [facility] C-Reactive Protein 4.1(H) <1.0 mg/dl [facility] 06/06/2000 11:5 6 EDT 06/06/2000 12:01 EDT Jaciel Clancy MD CHEMISTRY & BLOOD GA S ORDERABLES Performing Organization Address [facility] Co de Phone Number [facility] [address] [place] [address] * (ABNORMAL) HEMAGRAM & DIFF (06/06/2000 11:56 EDT) Pathologist [facility] WBC 7.92 4.0 - 10.4 K/cmm [facility] RBC 4.24(L) 4.36 - 5.78 M/cmm [facility] Hemoglobin 11.2(L) 13.8 - 17.3 gm/dl [facility] HCT 33.8(L) 39.5 - 50.2 % [facility] MCV 80(L) 81 - 95 fl [facility] MCH 26.5(L) 27.6 - 33.0 pg [facility] MCHC 33.2 32.8 - 36.4 gm/dl [facility] PLT 420(H) 141 - 320 K/cmm [facility] RDW-CV 17.8(H) 11.8 - 14.1 % [facility] % Neutrophils 83.3(H) 45.5 - 79.7 % [facility] % Lymphocytes 12.2(L) 15.0 - 46.8 % [facility] % Monocytes 3.6 1.8 - 12.0 % [facility] % Eosinophils 0.6 0.6 - 6.9 % [facility] % Basophils 0.3 0.2 - 1.4 % [facility] ABS Neutrophils 6.60 2.20 - 8.85 K/cmm [facility] ABS Lymphs 0.97(L) 1.09 - 3.30 K/cmm [facility] ABS Monocytes 0.28 0.1 - 0.8 K/cmm [facility] ABS Eosinophils 0.04 0.03 - 0.61 K/cmm [facility] ABS Basophils 0.03 0.01 - 0.11 K/cmm [facility] Type of Diff: Automated [facility] 06/06/2000 11:5 6 EDT 06/06/2000 12:01 EDT Jaciel Clancy MD HISTORICAL LAB FOR S Q LOAD [facility] [address] [place] [address] documented in this encounter Visit Diagnoses Not on filedocumented in this encounter
--- OUTSIDE RECORDS SUMMARY | 2023-11-02 04:07 | XMS_ITS | Encounter Summary ---
Author Organization [facility] Address [address] [place] [address] Care Team Providers Care University Relations Director Name Role Phone Unavailable Primary Care Provider Unavailabl e Encounter Details Date Type Department Care Team (Late st Contact Info) Description 09/15/2004 11:03 EDT Hospital Encounter [facility] - Other [address] [place] [phone] Jaciel Clancy MD Social History Tobacco Use [...] Info) Description 01/17/2024 9:00 EST Office Visit [facility] Rheumatology & Immunology [address] [phone] Butch Blair NP [address] [facility], [address] [place] [phone] 07/26/2024 9:00 EDT Office Visit [facility] Rheumatology & Immunology [address] [phone] Riri Seymour MD [address] [place] [address], [address] [place] [phone] documented as of this encounter Visit Diagnoses Not on filedocumented in this encounter
--- OUTSIDE RECORDS SUMMARY | 2023-11-02 04:07 | XMS_ITS | Encounter Summary ---
Author Organization [facility] Address [address] [place] [address] Care Team Providers Care Department [employer] Name Role Phone Olaf Sahni MD Primary Care Provider Gustavo aldana Encounter Details Date Type Department Care Team (Latest Contact Info) Description 03/25/2009 9:33 EST - 03/25/2009 23:59 EST Hospital Encounter [address] [phone] Jaciel Clancy MD Discharge Disposition: Auto Discharge Social History Tobacco Use Types Packs/Day Years Used Date Smoking Tobacco: Never Assessed Sex and Gender Information Value Date Recorded Sex Assigned at Not on file Gender Identity Male 11/06/2020 8:02 EDT Sexual Orientation Not on file documented as of this encounter Discharge Disposition Disposition Code Departure Means Destination Auto Discharge Home documented in this encounter Miscellaneous Notes * Scanned Note-Null - Inpatient, Physician - 05/13/2009 1558 EST documented in this encounter Plan of Treatment Upcoming Encounters Date Type Department Care Team (Late st Contact Info) Description 01/17/2024 9:00 EST Office Visit [facility] Rheumatology & Immunology [address] [phone] Butch Blair NP 111 [facility], [address] [place] [phone] 07/26/2024 9:00 EDT Office Visit [facility] Rheumatology & Immunology [address] [phone] Riri Seymour MD 111 [facility], [address] [place] [phone] documented as of this encounter Visit Diagnoses Not on filedocumented in this encounter Care Teams Department Head [employer] Or [employer] Relationship Specialty Start Date End Date Olaf Sahni MD PCP - General 09/20/08 11/05/20 documented as of this encounter
--- OUTSIDE RECORDS SUMMARY | 2023-11-02 04:07 | XMS_ITS | Encounter Summary ---
Author Organization [facility] Address [address] [place] [address] Care Team Providers Care Casino Floor Runner Name Role Phone Olaf Sahni MD Primary Care Provider Gustavo aldana Encounter Details Date Type Department Care Team (Late st Contact Info) Description 09/18/2012 Phlebotomy Only [address] [phone] Nuclear Weapons Mechanical Specialist, Outpatient Ankylosing spondylitis ([facility]); Encounter for long-term (current) use of other [...] [facility] Rheumatology & Immunology [address] [phone] Butch Blair NP [address] [place] [phone] 07/26/2024 9:00 EDT Office Visit [facility] Rheumatology & Immunology [address] [phone] Riri Seymour MD [address] [place] [phone] documented as of this encounter Procedures Procedure Name Priority Date/Time Associated Diagnosis Comments DMARD PROFILE Routine 09/18/2012 9:01 EDT Ankylosing spondylitis ([facility]) Encounter for long-term (current) use of other medications DIFFERENTIAL Routine 09/18/2012 9:01 EDT SED RATE Routine 09/18/2012 9:01 EDT Ankylosing spondylitis ([facility]) COMPLETE BLOOD COUNT Routine 09/18/2012 9:01 EDT COMPLETE BLOOD COUNT AND DIFFERENTIAL Routine 09/18/2012 9:01 EDT Ankylosing spondylitis ([facility]) Encounter for long-term (current) use of other medications documented in this encounter Results * DIFFERENTIAL (09/18/2012 9:01 EDT) % Neutrophils 65.5 45.5 - 79.7 % [facility] % Lymphocytes 24.3 15.0 - 46.8 % [facility] % Monocytes 8.4 1.8 - 12.0 % [facility] % Eosinophils 1.6 0.6 - 6.9 % [facility] % Basophils 0.2 0.2 - 1.4 % [facility] ABS Neutrophils 4.33 2.20 - 8.85 K/cmm [facility] ABS Lymphs 1.61 1.09 - 3.30 K/cmm [facility] ABS Monocytes 0.55 0.1 - 0.8 K/cmm [facility] ABS Eosinophils 0.11 0.03 - 0.61 K/cmm [facility] ABS Basophils 0.02 0.01 - 0.11 K/cmm [facility] Type of Diff: Automated [facility] 09/18/2012 9:01 EDT 09/18/2012 9:12 EDT Ayaka Dash PA-C HEMATOLOGY & PF4 O RDERABLES Performing Organization Address [facility] Co de Phone Number [facility] [address] [place] [address] * HEMAGRAM (09/18/2012 9:01 EDT) WBC 6.60 4.0 - 10.4 K/cmm [facility] RBC 4.73 4.36 - 5.78 M/cmm [facility] Hemoglobin 15.0 13.8 - 17.3 gm/dl [facility] HCT 43.2 39.5 - 50.2 % [facility] MCV 91 81 - 95 fl [facility] MCH 31.8 27.6 - 33.0 pg [facility] MCHC 34.8 32.8 - 36.4 gm/dl [facility] PLT 172 141 - 320 K/cmm [facility] RDW-CV 13.4 11.8 - 14.1 % [facility] 09/18/2012 9:01 EDT 09/18/2012 9:12 EDT Ayaka Dash PA-C HEMATOLOGY & PF4 O RDERATONE Performing Organization Address [facility] de Phone Number [facility] [address] [place] [address] * (ABNORMAL) SED. RATE:WESTERGREN (09/18/2012 9:01 EDT) Sed. Rate Nareshren 21(H) 0 - 20 mm/hr [facility] Blood specimen (specimen) 09/18/2012 9:01 EDT 09/18/2012 9:12 EDT Ayaka Dash PA-C HEMATOLOGY & PF4 O RDERABLES Performing Organization Address [facility] Co de Phone Number [facility] [address] [place] [address] * DMARD PROFILE (09/18/2012 9:01 EDT) Total Alkaline Phosphatase 90 38 - 126 U/L [facility] AST 28 15 - 46 U/L [facility] ALT 45 21 - 72 U/L [facility] Albumin 4.6 3.4 - 4.9 g/dl [facility] Creatinine 0.93 0.66 - 1.25 mg/dl [facility] GFR, Calculated >60 >60 ml/min/1.7 3m2 [facility] Blood specimen (specimen) 09/18/2012 9:01 EDT 09/18/2012 9:12 EDT Ayaka Dash PA-C CHEMISTRY & BLOOD GAS ORDERABLES [facility] [address] [place] [address] documented in this encounter Visit Diagnoses Diagnosis Ankylosing spondylitis ([facility]) Ankylosing spondylitis Encounter for long-term (current) use of other medications documented in this encounter Care Teams Casino Floor Runner Relationship Specialty Start Date End Date Olaf Sahni MD PCP - General 09/20/08 11/05/20 documented as of this encounter
--- OUTSIDE RECORDS SUMMARY | 2023-11-02 04:07 | XMS_ITS | Encounter Summary ---
Author Organization [facility] Address [address] [place] [address] Care Team Providers Care Hardware Designer Name Role Phone Olaf Sahni MD Primary Care Provider U navailable Reason for Visit * Reason Onset Date Comments Medications Refill 09/15/2010 Encounter Details Date Type Department Care Team (Late st Contact Info) Description 09/15/2010 Refill [facility] Rheumatology & Immunology [address] [phone] Jaciel Clancy MD Medications Refill Social History [...] encounter Miscellaneous Notes * Telephone Encounter - Toshia Daly RN - 09/17/2010 1058 EDT Pt can get Enbrel refill when seen on Tuesday documented in this encounter Plan of Treatment Upcoming Encounters Date Type Department Care Team (Late st Contact Info) Description 01/17/2024 9:00 EST Office Visit [facility] Rheumatology & Immunology [address] [phone] Butch Blair, SHEELA [address] [facility] [address] [place] [phone] 07/26/2024 9:00 EDT Office Visit [facility] Rheumatology & Immunology - [address] [phone] Riri Seymour MD [address] [facility], [address] [place] [phone] documented as of this encounter Visit Diagnoses Diagnosis Ankylosing spondylitis ([facility]) Ankylosing spondylitis documented in this encounter Care Teams Hardware Designer Relationship Specialty Start Date End Date Olaf Sahni MD PCP - General 09/20/08 11/05/20 documented as of this encounter
--- OUTSIDE RECORDS SUMMARY | 2023-11-02 04:07 | XMS_ITS | Encounter Summary ---
Author Organization [facility] Address [address] [place] [address] Care Team Providers Care Irrigation Flume Layer Name Role Phone Olaf Sahni MD Primary Care Provider U jovan Encounter Details Date Type Department Care Team (Late st Contact Info) Description 09/20/2006 Before PRISM Converted Visit (Maple) [facility] - Maple conversion [address] [place] [address] Jaciel Clancy MD Social History Tobacco Use Types Packs/Day Years Used Date Smoking Tobacco: Never Assessed Sex and Gender Information Value Date Recorded Sex Assigned at Not on file Gender Identity Male 11/06/2020 8:02 EDT Sexual Orientation Not on file documented as of this encounter Progress Notes * Jaciel Clancy MD - 01/08/2009 0454 EST DIVISION OF RHEUMATOLOGY PROGRESS/FOLLOWUP NOTE - 09/20/2006 PROBLEM Ankylosing spondylitis. SUBJECTIVE In general, Erasto has been doing reasonably well. He remains on his Enbrel injections once weeklyand indomethacin just 25 mg daily in the morning. He has noted some shortness of breath and is seeing Dr. Sahni for that and apparently some workup is planned. He is noticing that he is getting short of breath after a couple of flights. Does not find any triggers for that. His left knee, which has bothered him for some time, has been somewhat worse. He wonders if it is related to the exercise he is doing as he is trying to do the leg strengthening. 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 He knows his difficulty with squatting, diffi culty with stairs and crepitus in the left knee more than the right knee. His back pain is generally stable. He has occasional pain in his thoracic area. His lower back is doing fine, and he has noted no swelling in his other joints. He denies any significant neck pain. CURRENT MEDICATIONS 1. Indomethacin 25 mg daily. 2. Prilosec 15 mg daily. 3. Actonel 35 mg weekly. 4. B12 injections monthly. 5. Etanercept 50 mg weekly. 6. Aspirin 81 mg daily. 7. Lisinopril 5 mg daily. 8. Simvastatin 40 mg daily. REVIEW OF SYSTEMS He has some fatigue, but generally feels fairly goodenergy. He has some trouble sleeping. Denies any eye problems and has had no chest pains or palpitations, but does have some shortness of breath and occasional coughing. No GI complaints. He is stiff in the morning for a couple of hours. No paresthesias or weakness. No urinary symptoms. Denies any new rashes. OBJECTIVE Blood pressure 138/82, pulse 60, height 65-3/4 inches, weight 144 pounds. Pain ratin/3, particularly his left knee. The patient looks well. He is in good spirits. His weight is good. He moves easily. His neck has good range of motion. Lungs were clear. Chest expansion 4 cm. Finger to floor was essentially 0. He had no synovitis in his upper extremities. No tenderness of his spine. Good range of motion of his hips. He has crepitus in both of his knees, but no effusions or warmth. Ankles and feet were unremarkable except for some mild deformity. ASSESSMENT Ankylosing spondylitis under good control with his Enbrel. 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 He showed me the exercise he is doing and, unfortunately, he doing a lot knee bending with that, which is probably not helpful for this particular diagnosis. PROBLEM Shortness of breath. Apparently being worked up by Dr. Sahni. PROBLEM Osteoporosis. Last DXA was in 2005 with a T score -2.4, which is improved since he has been off steroids. PLAN 1. Continue etanercept 50 mg weekly along with Indocin 25 mg daily. 2. I instructed him on straight leg raising for his knees. 3. Followup with Dr. Sahni concerning his shortness of breath. 4. Followup in six months. 5. Creatinine and ESR today. Lab: creat-1.06; ESR-11./ESL Signed by Jaciel Clancy MD 09/27/2006 13:02 Andrzej Costello MD Jaciel Clancy MD - Jaciel Clancy MD - ms Job ID: [id number] Doc ID: [id number] cc: Olaf Sahni MD documented in this encounter Plan of Treatment Upcoming Encounters Date Type Department Care Team (Late st Contact Info) Description 01/17/2024 9:00 EST Office Visit [facility] Rheumatology & Immunology [address] [phone] Butch Blair NP [address] [place] [phone] 07/26/2024 9:00 EDT Office Visit [facility] Rheumatology & Immunology [address] [phone] Riri Seymour MD [address] [place] [phone] documented as of this encounter Visit Diagnoses Not on filedocumented in this encounter Care Teams Irrigation Flume Layer Relationship Specialty Start Date End Date Olaf Sahni MD PCP - General 09/20/08 11/05/20 documented as of this encounter
--- OUTSIDE RECORDS SUMMARY | 2023-11-02 04:07 | XMS_ITS | Encounter Summary ---
Author Organization [facility] Address [address] [place] [address] Care Team Providers Care Conche Loader And Unloader Name Role Phone Unavailable Primary Care Provider Unavailabl e Encounter Details Date Type Department Care Team (Late st Contact Info) Description 03/21/2007 8:49 EST Hospital Encounter [address] [phone] Jaciel Clancy MD Social History Tobacco Use [...] 01/17/2024 9:00 EST Office Visit [facility] Rheumatology & Immunology [address] [phone] Butch Blair NP [address] [place] [address], [address] [place] [phone] 07/26/2024 9:00 EDT Office Visit [facility] Rheumatology & Immunology [address] [phone] Riri Seymour MD [address] [place] [address], [address] [place] [phone] documented as of this encounter Visit Diagnoses Not on filedocumented in this encounter
--- OUTSIDE RECORDS SUMMARY | 2023-11-02 04:07 | XMS_ITS | Encounter Summary ---
Author Organization [facility] Address [address] [place] [address] Care Team Providers Care Well Tester Name Role Phone Olaf Sahni MD Primary Care Provider U navailable Reason for Referral * Other Type (Routine) - Closed Specialty Diagnoses / Procedures Referred By Deann [email or web address] Referred To Contact Diagnoses Ankylosing spondylitis ([facility]) Vi [place] RN Referral ID Status Reason Start Date Expiration Date V isits Requested Visits Authorized [id number] Closed Other 09/14/2010 1 1 Question Answer Medication to be Prior Authorized: enbrel 50 mg sureclick Comments The purpose of this consult request is to inform the scheduling staff that a medication needs to be prior-authorized before it is prescribed and/or administered. Encounter Details Date Type Department Care Team (Late st Contact Info) Description 09/14/2010 Orders Only [facility] Rheumatology & Immunology [address] [address] Vi [place], GINA Ankylosing spondylitis ([facility]) (Primary Dx) Social History Tobacco Use Types [...] Info) Description 01/17/2024 9:00 EST Office Visit [facility] Rheumatology & Immunology [address] [phone] Butch Blair NP 111 [facility] 5 [place] [phone] 07/26/2024 9:00 EDT Office Visit [facility] Rheumatology & Immunology - [address] [address] Riri Seymour MD [address] [phone] Scheduled Referrals Name Type Priority Associated Diagnoses Order Schedule AMB MEDICATION PRIOR AUTHORIZATION Outpatient Referral Routine Ankylosing spondylitis ([facility]) Ordered: 09/14/2010 documented as of this encounter Visit Diagnoses Diagnosis Ankylosing spondylitis ([facility])- Primary Ankylosing spondylitis documented in this encounter Care Teams Well Tester Relationship Specialty Start Date End Date Olaf Sahni MD PCP - General 09/20/08 11/05/20 documented as of this encounter
--- OUTSIDE RECORDS SUMMARY | 2023-11-02 04:07 | XMS_ITS | Encounter Summary ---
Author Organization [facility] Address [address] [place] [address] Care Team Providers Care Shaft Headman Name Role Phone Unavailable Primary Care Provider Unavailabl e Encounter Details Date Type Department Care Team (Late st Contact Info) Description 09/20/2006 8:45 EDT Hospital Encounter [address] [address] Jaciel Clancy MD Social History Tobacco Use [...] 9:00 EST Office Visit [facility] Rheumatology & Immunology [address] [phone] Butch Blair NP [address] [place] [address], [facility] 5 [place] [phone] 07/26/2024 9:00 EDT Office Visit [facility] Rheumatology & Immunology [address] [address] Riri Seymour MD 111 [facility], Level [address] [place] [phone] documented as of this encounter Procedures Procedure Name Priority Date/Time Associated Diagnosis Comments SED RATE Routine 09/20/2006 10:06 EDT CREATININE Routine 09/20/2006 10:06 EDT documented in this encounter Results * SED. RATE:WESTERGREN (09/20/2006 10:06 EDT) Sed. Rate Westergren 11 0 - 15 mm/hr [facility] 09/20/2006 10:0 6 EDT 09/20/2006 10:18 EDT Jaciel Clancy MD HEMATOLOGY & PF4 ORD ERABLES [facility] [address] [place] [address] * CREATININE (09/20/2006 10:06 EDT) Creatinine 1.06 0.7 - 1.5 mg/dl [facility] GFR, Calculated >60 ml/min/1.7 3m2 [facility] 09/20/2006 10:0 6 EDT 09/20/2006 10:18 EDT Jaciel Clancy MD CHEMISTRY & BLOOD GA S ORDERABLES Performing Organization Address City/[facility]/ZIP Co de Phone Number [facility] [address] [place] [address] documented in this encounter Visit Diagnoses Not on filedocumented in this encounter
--- OUTSIDE RECORDS SUMMARY | 2023-11-02 04:07 | XMS_ITS | Encounter Summary ---
Author Organization [facility] Address [address] [place] [address] Care Team Providers Care Family Consumer Scientist Name Role Phone Unavailable Primary Care Provider Unavailabl e Encounter Details Date Type Department Care Team (Latest Contact Info) Description 01/11/2000 16:20 EST Hospital Encounter [facility] - Other [address] [place] [phone] Jaciel Clancy MD Unknown, Provider, Discharge Disposition: [...] 01/17/2024 9:00 EST Office Visit [facility] Rheumatology & Immunology [address] [phone] Butch Blair NP [address] [place] [phone] 07/26/2024 9:00 EDT Office Visit [facility] Rheumatology & Immunology [address] [phone] Riri Seymour MD [address] [place] [phone] documented as of this encounter Procedures Procedure Name Priority Date/Time Associated Diagnosis Comments HEMAGRAM & DIFF Routine 01/11/2000 14:20 EST DMARD PROFILE Routine 01/11/2000 14:20 EST LIPID PROFILE (INCLUDES CHOLESTEROL, TRIGLYCERIDES, HDL, LDL) Routine 01/11/2000 14:20 EST documented in this encounter Results * (ABNORMAL) DMARD PROFILE (01/11/2000 14:20 EST) Total Alkaline Phosphatase 153(H) 38 - 126 U/L [facility] AST 13 8 - 50 U/L [facility] ALT 17 15 - 75 U/L [facility] Albumin 3.9 3.0 - 5.5 g/dl [facility] Creatinine 1.0 0.7 - 1.5 mg/dl [facility] 01/11/2000 14:2 0 EST 01/11/2000 14:22 EST Jaciel Clancy MD CHEMISTRY & BLOOD GA S ORDERABLES [facility] [address] [place] [address] * LIPID PROFILE (INCLUDES CHOLESTEROL, TRIGLYCERIDES, HDL, LDL) (01/11/2000 14:20 EST) Cholesterol 207 mg/dl [facility] Comment: Desirable:<200 Borderline:200-239 High Risk:>sx=348 Triglycerides 55 35 - 160 mg/dl [facility] HDL 54 mg/dl [facility] Comment: Highly Desirable:>60 Desirable:35-60 High Risk:<35 LDL, Calculated 142 mg/dl [facility] Comment: Desirable:<130 Borderline:130-159 High Risk:>tx=[id number] Chol/HDL Ratio 3.8 [facility] 01/11/2000 14:2 0 EST 01/11/2000 14:22 EST Jaciel Clancy MD CHEMISTRY & BLOOD GA S ORDERABLES [facility] [address] [place] [address] * (ABNORMAL) HEMAGRAM & DIFF (01/11/2000 14:20 EST) WBC 8.87 4.0 - 10.4 K/cmm [facility] RBC 4.12(L) 4.36 - 5.78 M/cmm [facility] Hemoglobin 11.2(L) 13.8 - 17.3 gm/dl [facility] HCT 33.3(L) 39.5 - 50.2 % [facility] MCV 81 81 - 95 fl [facility] MCH 27.1(L) 27.6 - 33.0 pg [facility] MCHC 33.5 32.8 - 36.4 gm/dl [facility] PLT 378(H) 141 - 320 K/cmm [facility] RDW-CV 17.4(H) 11.8 - 14.1 % [facility] % Neutrophils 83.4(H) 45.5 - 79.7 % [facility] % Lymphocytes 11.2(L) 15.0 - 46.8 % [facility] % Monocytes 4.5 1.8 - 12.0 % [facility] % Eosinophils 0.5(L) 0.6 - 6.9 % [facility] % Basophils 0.4 0.2 - 1.4 % [facility] ABS Neutrophils 7.41 2.20 - 8.85 K/cmm [facility] ABS Lymphs 0.99(L) 1.09 - 3.30 K/cmm [facility] ABS Monocytes 0.40 0.1 - 0.8 K/cmm [facility] ABS Eosinophils 0.04 0.03 - 0.61 K/cmm [facility] ABS Basophils 0.03 0.01 - 0.11 K/cmm [facility] Type of Diff: Automated [facility] 01/11/2000 14:2 0 EST 01/11/2000 14:22 EST Jaciel Clancy MD HISTORICAL LAB FOR S Q LOAD Performing Organization Address City/State/[facility] Co de Phone Number [facility] [address] [place] [address] documented in this encounter Visit Diagnoses Not on filedocumented in this encounter
--- OUTSIDE RECORDS SUMMARY | 2023-11-02 04:07 | XMS_ITS | Encounter Summary ---
Author Organization [facility] Address [address] [place] [address] Care Team Providers Care Apprenticeship Consultant Name Role Phone Olaf Sahni MD Primary Care Provider Gustavo aldana Encounter Details Date Type Department Care Team (Late st Contact Info) Description 03/23/2011 Phlebotomy Only [address] [address] Publishing Editor, Outpatient Ankylosing spondylitis ([facility]) Social History Tobacco Use Types Packs/Day Years [...] Info) Description 01/17/2024 9:00 EST Office Visit [facility] [place] [facility] Rheumatology & Immunology [address] [phone] Butch Blair NP [address] [place] [phone] 07/26/2024 9:00 EDT Office Visit [facility] [place] [facility] Rheumatology & Immunology [address] [phone] Riri Seymour MD [address] [place] [phone] documented as of this encounter Procedures Procedure Name Priority Date/Time Associated Diagnosis Comments DMARD PROFILE Routine 03/23/2011 10:13 EST Ankylosing spondylitis ([facility]) COMPLETE BLOOD COUNT AND DIFFERENTIAL Routine 03/23/2011 10:13 EST Ankylosing spondylitis ([facility]) documented in this encounter Results * DMARD PROFILE (03/23/2011 10:13 EST) Total Alkaline Phosphatase 101 38 - 126 U/L [facility] AST 22 15 - 46 U/L [facility] ALT 30 21 - 72 U/L [facility] Albumin 4.5 3.4 - 4.9 g/dl [facility] Creatinine 0.99 0.66 - 1.25 mg/dl [facility] GFR, Calculated >60 >60 ml/min/1.7 3m2 [facility] Blood specimen (specimen) 03/23/2011 10:13 EST 03/23/2011 10:20 EST Jaciel Clancy MD CHEMISTRY & BLOOD GA S ORDERABLES Performing Organization Address City/State/[facility] Co de Phone Number [facility] [address] [place] [address] * HEMAGRAM AND DIFFERENTIAL (03/23/2011 10:13 EST) WBC 5.54 4.0 - 10.4 K/cmm [facility] RBC 4.55 4.36 - 5.78 M/cmm [facility] Hemoglobin 14.2 13.8 - 17.3 gm/dl [facility] HCT 40.7 39.5 - 50.2 % [facility] MCV 89 81 - 95 fl [facility] MCH 31.2 27.6 - 33.0 pg [facility] MCHC 35.0 32.8 - 36.4 gm/dl [facility] PLT 186 141 - 320 K/cmm [facility] RDW-CV 13.1 11.8 - 14.1 % [facility] % Neutrophils 67.6 45.5 - 79.7 % [facility] % Lymphocytes 24.4 15.0 - 46.8 % [facility] % Monocytes 6.8 1.8 - 12.0 % [facility] % Eosinophils 0.9 0.6 - 6.9 % [facility] % Basophils 0.3 0.2 - 1.4 % [facility] ABS Neutrophils 3.75 2.20 - 8.85 K/cmm [facility] ABS Lymphs 1.35 1.09 - 3.30 K/cmm [facility] ABS Monocytes 0.38 0.1 - 0.8 K/cmm [facility] ABS Eosinophils 0.05 0.03 - 0.61 K/cmm [facility] ABS Basophils 0.02 0.01 - 0.11 K/cmm [facility] Type of Diff: Automated [facility] Blood specimen (specimen) 03/23/2011 10:13 EST 03/23/2011 10:20 EST Jaciel Clancy MD PACKAGES & DNA PROBE ORDERABLES Performing Organization Address City/State/[facility] Co de Phone Number [facility] [address] [place] [address] documented in this encounter Visit Diagnoses Diagnosis Ankylosing spondylitis ([facility]) Ankylosing spondylitis documented in this encounter Care Teams Apprenticeship Consultant Relationship Specialty Start Date End Date Olaf Sahni MD PCP - General 09/20/08 11/05/20 documented as of this encounter
--- OUTSIDE RECORDS SUMMARY | 2023-11-02 04:07 | XMS_ITS | Encounter Summary ---
Author Organization [facility] Address [address] [place] [address] Care Team Providers Care Modern Languages Professor Name Role Phone Unavailable Primary Care Provider Unavailabl e Encounter Details Date Type Department Care Team (Late st Contact Info) Description 03/15/2006 9:59 EST Hospital Encounter [address] [address] Jaciel Clancy MD Unknown, Provider, Social History Tobacco Use Types [...] Description 01/17/2024 9:[address] [facility] Rheumatology & Immunology - [address] [phone] Butch Blair NP 111 [facility], [facility] 5 [place] [phone] 07/26/2024 9:[address] [facility] Rheumatology & Immunology - [facility] [address] [place], [place] [phone] Riri Seymour MD 111 [facility], Level [address] [place] [phone] documented as of this encounter Procedures Procedure Name Priority Date/Time Associated Diagnosis Comments SED RATE Routine 03/15/2006 11:34 EST COMPLETE BLOOD COUNT AND DIFFERENTIAL Routine 03/15/2006 11:34 EST COMPREHENSIVE METABOLIC PANEL (CMP) Routine 03/15/2006 11:34 EST documented in this encounter Results * SED. RATE:WESTERGREN (03/15/2006 11:34 EST) Sed. Rate Westergren 2 0 - 15 mm/hr [facility] 03/15/2006 11:3 4 EST 03/15/2006 11:35 EST Jaciel Clancy MD HEMATOLOGY & PF4 ORD ERABLES [facility] [address] [place] [address] * (ABNORMAL) COMPREHENSIVE METABOLIC PANEL (03/15/2006 11:34 EST) Potassium 4.0 3.5 - 5.0 mEq/L [facility] Sodium 143 136 - 145 mEq/L [facility] Chloride 100 96 - 110 mEq/L [facility] CO2 31 24 - 32 mEq/L [facility] Total Alkaline Phosphatase 87 38 - 126 U/L [facility] Bilirubin, Total 0.7 0.2 - 1.3 mg/dl [facility] AST 52(H) 15 - 46 U/L [facility] ALT 79(H) 21 - 72 U/L [facility] Albumin 5.0(H) 3.4 - 4.9 g/dl [facility] Total Protein 8.6(H) 6.5 - 8.3 g/dl [facility] Creatinine 1.13 0.7 - 1.5 mg/dl [facility] GFR, Calculated >60 ml/min/1.7 3m2 [facility] BUN 19 10 - 26 mg/dl [facility] Calcium 9.8 8.5 - 10.5 mg/dl [facility] Calculated Calcium 9.2 8.5 - 10.5 mg/dl [facility] Glucose, Serum 101(H) 70 - 100 mg/dl [facility] Fasting? No [facility] Albumin/Globulin Ratio 1.4 [facility] 03/15/2006 11:3 4 EST 03/15/2006 11:35 EST Jaciel Clancy MD CHEMISTRY & BLOOD GA S ORDERABLES Performing Organization Address City/State/[facility] Co de Phone Number [facility] [address] [place] [address] * HEMAGRAM AND DIFFERENTIAL (03/15/2006 11:34 EST) WBC 6.01 4.0 - 10.4 K/cmm [facility] RBC 5.40 4.36 - 5.78 M/cmm [facility] Hemoglobin 16.6 13.8 - 17.3 gm/dl [facility] HCT 48.9 39.5 - 50.2 % [facility] MCV 91 81 - 95 fl [facility] MCH 30.7 27.6 - 33.0 pg [facility] MCHC 33.9 32.8 - 36.4 gm/dl [facility] PLT 215 141 - 320 K/cmm [facility] RDW-CV 13.2 11.8 - 14.1 % [facility] % Neutrophils 59.7 45.5 - 79.7 % [facility] % Lymphocytes 31.0 15.0 - 46.8 % [facility] % Monocytes 7.4 1.8 - 12.0 % [facility] % Eosinophils 1.7 0.6 - 6.9 % [facility] % Basophils 0.2 0.2 - 1.4 % [facility] ABS Neutrophils 3.58 2.20 - 8.85 K/cmm [facility] ABS Lymphs 1.86 1.09 - 3.30 K/cmm [facility] ABS Monocytes 0.45 0.1 - 0.8 K/cmm [facility] ABS Eosinophils 0.10 0.03 - 0.61 K/cmm [facility] ABS Basophils 0.01 0.01 - 0.11 K/cmm [facility] Type of Diff: Automated [facility] 03/15/2006 11:3 4 EST 03/15/2006 11:35 EST Jaciel Clancy MD PACKAGES & DNA PROBE ORDERABLES [facility] [address] [place] [address] documented in this encounter Visit Diagnoses Not on filedocumented in this encounter
--- OUTSIDE RECORDS SUMMARY | 2023-11-02 04:07 | XMS_ITS | Encounter Summary ---
Author Organization [facility] Address [address] [place] [address] Care Team Providers Care Reexaminer Name Role Phone Olaf Sahni MD Primary Care Provider U navailable Reason for Visit * Reason Onset Date Comments Medications Refill 06/17/2011 Encounter Details Date Type Department Care Team (Late st Contact Info) Description 06/17/2011 Refill [facility] Rheumatology & Immunology [address] [phone] Jaciel Clancy MD Medications Refill Social History [...] Cap by mouth daily. 30 Cap 5 06/17/2011 12/28/2011 documented in this encounter Plan of Treatment Upcoming Encounters Date Type Department Care Team (Late st Contact Info) Description 01/17/2024 9:00 EST Office Visit [facility] Rheumatology & Immunology [address] [phone] Butch Blair NP 111 [facility], [facility] 5 [place] [phone] 07/26/2024 9:00 EDT Office Visit [facility] Rheumatology & Immunology - [facility] [address] [place], [place] [address] Riri Seymour MD 111 [facility], Level [address] [place] [phone] documented as of this encounter Visit Diagnoses Diagnosis Ankylosing spondylitis (HCC-CMS)- Primary Ankylosing spondylitis documented in this encounter Discontinued Medications Medication Sig Discontinue Reason Start Date End Da te indomethacin (INDOCIN) 25 mg capsuleIndications:Ankylo sing spondylitis (HCC-CMS) Take 1 Cap by mouth daily. Reorder 03/23/2011 06/17/2011 documented as of this encounter Care Teams Reexaminer Relationship Specialty Start Date End Date Olaf Sahni MD PCP - General 09/20/08 11/05/20 documented as of this encounter
--- OUTSIDE RECORDS SUMMARY | 2023-11-02 04:07 | XMS_ITS | Encounter Summary ---
Author Organization [facility] Address [address] [place] [address] Care Team Providers Care Parking Line Painter Name Role Phone Olaf Sahni MD Primary Care Provider Gustavo aldana Encounter Details Date Type Department Care Team (Late st Contact Info) Description 09/19/2007 Before PRISM Converted Visit (Maple) [facility] - Maple conversion [address] [place] [address] Jaciel Clancy MD Social History Tobacco Use Types Packs/Day Years Used Date Smoking Tobacco: Never Assessed Sex and Gender Information Value Date Recorded Sex Assigned at Not on file Gender Identity Male 11/06/2020 8:02 EDT Sexual Orientation Not on file documented as of this encounter Progress Notes * Jaciel Clancy MD - 12/06/2008 1105 EDT DIVISION OF RHEUMATOLOGY PROGRESS/FOLLOWUP NOTE - 09/19/2007 PROBLEM Ankylosing spondylitis. SUBJECTIVE Erasto is still complaining of a great deal of fatigue, has occasional shortness of breath with exertion, but says his back is doing reasonably well. He has occasional pain there and some spots thatare more sore, but says no major change when compared to before when he was on the Enbrel. It was like night and day. He has some soreness in his hands as well. He was under the understanding he was to stop his Actonel in March, which he did. The plan had been to check his bone density today and then stop it, but he has been off now for about six months. He remains on indomethacin 25 mg daily, which he tolerates well. MEDICATIONS 1. Indocin 25 mg daily. 2. B-12 injections monthly. 3. Etanercept 50 mg weekly. 4. Aspirin 81 mg daily. 5. Lisinopril 10 mg, 1/4 tablet daily. 6. Simvastatin 40 mg daily. 7. Prevacid 15 mg daily. REVIEW OF SYSTEMS He complains of fatigue, the shortness of breath and some coughing, joint pain with stiffness lasting two to three hours. He has some trouble sleeping, primarily because of anxiety, but also somewhatbecause of pain. He has been trying to sleep without a pillow, which seems to help. No skin problems. PHYSICAL EXAMINATION Blood pressure 142/74, pulse 68, height 66 inches, weight 146 pounds. Weight is up about 20 pounds from prior to starting etanercept. Pain rating is 3/10 in his hands. Head to wall distance is 0. Chest expansion 4 cm. Finger to floor distance 7 cm. He has good range of motion of his lower spine. Hehas some bony enlargement of the second and third PIPs bilaterally. His chest is clear. Heart tonesare normal. In general, he looks healthier with more weight and does not look as frail. LABORATORY DATA Sedimentation rate in March was 28. Bone density was completed today and the T-score of his femoral neck is -2.3 as a mean and total hip -2. Lumbar spine, L1 through L4, is 0. Compared to the bone density performed in 2005, his total hip has gone up approximately 0.05 g/cm2 which is significant. The hip density has not changed significantly. The spine has increased significantly from 1.07 to 1.22 g/cm2. ASSESSMENT Ankylosing spondylitis, which continues to do well. 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 Low bone density related to steroid use and his spondylitis. I think he has had a significant increase in his spine density, probably from increased activity and being off the steroids. His hip has also gone up a bit. Some of this may also have been from being on the Actonel. PLAN 1. I would suggest he remain off Actonel for now. 2. Continue etanercept 50 mg weekly. 3. Indocin 25 mg daily. 4. Follow up in six months. Lab at that time. Signed by Jaciel Clancy MD 09/21/2007 10:32 Jaciel Clancy MD - Jaciel Clancy MD - SARA Job ID: [id number] Doc ID: [id number] cc: Olaf Sahni MD * Jaciel Clancy MD - 12/06/2008 0935 EDT [facility] [address] September 19, 2007 Referring Provider: Dr. Clancy Date of Examination: 09/19/2007 Reason for Study: Drug induced Osteoporosis Densitometer: [employer] Quality of Study: Spine L1-L4: Adequate for interpretation Proximal Femur (hip): Adequate for interpretation The results of this study and any comparable previous studies are as follows: RegionDate g/cm2 % Age Matched Z-Score Total Hip (mean) 04/10/2001 0.696 70 -2.3 Total Hip (mean) 08/17/2005 0.762 72 -2.1 Femoral Neck (mean)* 09/19/2007 0.777 77 -1.8 Total Hip (mean) 09/19/2007 0.818 77 -1.7 Change from first to last 0.12 Percent Change from first to last 18% Change from most recent to last 0.06 Percent Change from most recent to last 7% AP Spine L1-L4 04/10/2001 0.938 83 -1.6 AP Spine L1-L4 08/17/2005 1.073 88 -1.2 AP Spine L1-L4 09/19/2007 1.224 101 0.1 Change from first to last 0.29 Percent Change from first to last 31% Change from most recent to last 0.15 Percent Change from most recent to last 14% The Z-score is used in premenopausal women and men under 50 and compares the patient to a cohort ofthe same age. Based on this finding, the patient's bone density is below the average density for anage and sex matched cohort, but not so low as to suggest a need for further evaluation and/or intervention. *This site has the lowest bone density in the hip area and therefore is being used for diagnosis. For comparison to prior hip scans, the bone density of the total hip (mean) will be used. Compared to the precision error of the densitometer, the bone density of the hip has increased since the initial study and increased since the most recent previous study. The bone density of the spine has increased since the initial study and increased since the most recent previous study. Risk Factors Identified by the Patient ?? Corticosteroid therapy Patient's Present Therapy and Suggested Treatment Patient's dietary intake of calcium from questionnaire: 700 mg. Patient's calcium supplementation from questionnaire: 0 mg. NIH Consensus Panel recommendation: 1000 mg. Adequate vitamin D is recommended: 400-800 units daily. These recommendations for calcium and vitamin D intake may not apply to people with chronic kidney disease or who are on dialysis. Patient should also be encouraged to participate in weight bearing exercise. Based on these findings, calcium and vitamin D may be adequate at this time. A repeat bone density study in 5 years is recommended to monitor for bone loss. The measurement of bone mass cannot diagnose or adequately screen for the presence of metabolic bone disease. Therefore, when clinically indicated, additional studies may be needed. A report of our findings has been sent to your patient. Sincerely, Jaciel Clancy M.D. Director [facility] 09/21/2007 07:22 AM [employer] Document ID: [id number] documented in this encounter Plan of Treatment Upcoming Encounters Date Type Department Care Team (Late st Contact Info) Description 01/17/2024 9:00 EST Office Visit [facility] Rheumatology & Immunology [address] [phone] Butch Blair NP [address] [place] [phone] 07/26/2024 9:00 EDT Office Visit [facility] Rheumatology & Immunology [address] [phone] Riri Seymour MD [address] [place] [phone] documented as of this encounter Visit Diagnoses Not on filedocumented in this encounter Care Teams Parking Line Painter Relationship Specialty Start Date End Date Olaf Sahni MD PCP - General 09/20/08 11/05/20 documented as of this encounter
--- OUTSIDE RECORDS SUMMARY | 2023-11-02 04:07 | XMS_ITS | Encounter Summary ---
Author Organization [facility] Address [address] [place] [address] Care Team Providers Care Roll Over Loader Name Role Phone Olaf Sahni MD Primary Care Provider U navailable Reason for Visit * Reason Comments Follow-up 6 month follow-up fo r Anylosing Spondylitits Encounter Details Date Type Department Care Team (Latest Contact Info) Description 03/23/2011 9:15 EST Office Visit [facility] Rheumatology & Immunology - [address] [address] Jaciel Abrams MD Ankylosing spondylitis ([facility]) (Primary Dx) Discharge Disposition: Auto Discharge Social History Tobacco [...] Sign Reading Time Taken Comments Blood Pressure 120/70 03/23/2011 0920 EST Pulse 58 03/23/2011 0920 EST Temperature - - Respiratory Rate 16 03/23/2011 0920 EST Oxygen Saturation - - Inhaled Oxygen Concentration - - Weight 68.9 kg (152 lb) 03/23/2011 0920 EST Height 172 cm (5' 7.72) 03/23/2011 0920 EST Body Mass Index 23.31 03/23/2011 0920 EST documented in this encounter Patient Instructions * Patient Instructions* Jaciel Abrams MD - 03/23/2011 9:54 EST 1. Taper enbrel to every 10 days for 2 months and if doing well, taper to every 2 weeks. 2. Tennis elbow band for left elbow to be worn below elbow joint. 3. Lab today. 4. Follow up in 6 months. documented in this encounter Ordered Prescriptions Prescription Sig Dispensed Refills Start Date End Da te indomethacin (INDOCIN) 25 mg capsuleIndications:Ankyl osing spondylitis (HCC-CMS) Take 1 Cap by mouth daily. 30 Cap 5 03/23/2011 06/17/2011 etanercept (ENBREL) 50 mg/mL (0.98 mL) injectionIndications:Ank ylosing spondylitis (HCC-CMS) Inject 1 mL into the skin once a week. 12 Syringe 5 03/23/2011 09/16/2011 documented in this encounter Discharge Disposition Disposition Code Departure Means Destination Auto Discharge documented in this encounter Progress Notes * Jaciel Abrams MD - 03/23/2011 0938 EST Division of Rheumatology and Clinical Immunology HPI: Here for follow up of ankylosing spondylitis. Back doing ok. Having pain in neck left elbow around epicondyle with lifting. He is right handed. Also stiffness in hands. Stiff in a.m. 2-3 hours. On enbrel weekly and indocin daily. No recent labs. Current Outpatient Prescriptions Medication Sig Dispense Refill ??? etanercept (ENBREL) 50 mg/mL (0.98 mL) injection Inject 1 mL into the skin once a week. 12 Syringe 5 ??? indomethacin (INDOCIN) 25 mg capsule Take 1 Cap by mouth daily. 30 Cap 5 ??? hydrocodone-acetaminophen (NORCO) 5-325 mg per tablet [...] Cancer Father prostate ??? Heart Disease Father [place] at 54 ??? Heart Disease Brother at [...] Weight change x If yes, duration 2-3 hrs Gain or loss? Numbness/tingling x Eye discomfort [...] x Hair Loss x PHYSICAL EXAMINATION: Constitutional: thin, healthy and not in acute distress BP 120/70 Pulse 58 Resp 16 Ht 172 cm (67.72) Wt 68.947 kg (152 lb) BMI 23.31 kg/m2 RESPIRATORY: clear / equal BS; no adventitious sounds bilaterally MS: Good ROM of neck and back. Chest expansion 4 cm. Hands have heberdens and bouchards nodes but no inflammation. Tender left elbow epicondyle and pain with resisted extension at wrist. LABS Lab Results Component Value Date WBC 5.14 03/25/2009 WBC 6.01 03/15/2006 HGB 15.2 03/25/2009 HGB 16.6 03/15/2006 HCT 43.1 03/25/2009 HCT 48.9 03/15/2006 MCV 92 03/25/2009 MCV 91 03/15/2006 PLT 176 03/25/2009 PLT 215 03/15/2006 Lab Results Component Value Date CREATININE 0.97 03/25/2009 CREATININE 1.06 09/20/2006 BUN 19 03/15/2006 NA 143 03/15/2006 CL 100 03/15/2006 CO2 31 03/15/2006 Lab Results Component Value Date ALT 32 03/25/2009 ALT 79* 03/15/2006 AST 27 03/25/2009 AST 52* 03/15/2006 ALKPHOS 84 03/25/2009 ALKPHOS 87 03/15/2006 Lab Results Component Value Date SEDRATE 11 09/20/2006 Lab Results Component Value Date CRP 14.2* 05/31/2003 Imaging: Diagnosis / Assessment: 1. Ankylosing spondylitis doing very well 2. Tennis elbow left 3. Osteoarthritis hands Recommendations/Evaluation: 1. Taper enbrel to every 10 days for 2 months and if doing well, taper to every 2 weeks. 2. Tennis elbow band for left elbow to be worn below elbow joint. 3. Lab today. 4. Follow up in 6 months. JACIEL ABRAMS MD 03/23/2011 9:38 documented in this encounter Plan of Treatment Upcoming Encounters Date Type Department Care Team (Late st Contact Info) Description 01/17/2024 9:00 EST Office Visit [facility] Rheumatology & Immunology [address] [phone] Butch Blair NP [address] [place] [phone] 07/26/2024 9:00 EDT Office Visit [facility] Rheumatology & Immunology [address] [phone] Riri Seymour MD [address] [place] [phone] documented as of this encounter Results * DMARD PROFILE (03/23/2011 10:13 EST) Pathologist [facility] Total Alkaline Phosphatase 101 38 - 126 U/L [facility] AST 22 15 - 46 U/L [facility] ALT 30 21 - 72 U/L [facility] Albumin 4.5 3.4 - 4.9 g/dl [facility] Creatinine 0.99 0.66 - 1.25 mg/dl [facility] GFR, Calculated >60 >60 ml/min/1.7 3m2 [facility] Blood specimen (specimen) 03/23/2011 10:13 EST 03/23/2011 10:20 EST Jaciel Abrams MD CHEMISTRY & BLOOD GA S ORDERABLES Performing Organization Address City/State/[facility] Co de Phone Number [facility] [address] [place] [address] * HEMAGRAM AND DIFFERENTIAL (03/23/2011 10:13 EST) Pathologist [facility] WBC 5.54 4.0 - 10.4 K/cmm [facility] RBC 4.55 4.36 - 5.78 M/cmm [facility] Hemoglobin 14.2 13.8 - 17.3 gm/dl [facility] HCT 40.7 39.5 - 50.2 % [facility] MCV 89 81 - 95 fl [facility] MCH 31.2 27.6 - 33.0 pg [facility] MCHC 35.0 32.8 - 36.4 gm/dl [facility] PLT 186 141 - 320 K/cmm [facility] RDW-CV 13.1 11.8 - 14.1 % [...] 03/23/2011 10:13 EST 03/23/2011 10:20 EST Jaciel Abrams MD PACKAGES & DNA PROBE ORDERABLES Performing Organization Address City/State/[facility] Co de Phone Number [facility] [address] [place] [address] documented in this encounter Visit Diagnoses Diagnosis Ankylosing spondylitis (HCC-CMS)- Primary Ankylosing spondylitis documented in this encounter Discontinued Medications Medication Sig Discontinue Reason Start Date End Da te etanercept (ENBREL) 50 mg/mL (0.98 mL) injectionIndications:Anky losing spondylitis ([facility]) Inject 1 mL into the skin once a week. Reorder 10/08/2010 03/23/2011 indomethacin (INDOCIN) 25 mg capsuleIndications:Ankylo sing spondylitis (HCC-CMS) Take 1 Cap by mouth daily. Reorder 01/14/2011 03/23/2011 documented as of this encounter Care Teams Roll Over Loader Relationship Specialty Start Date End Date Olaf Sahni MD PCP - General 09/20/08 11/05/20 documented as of this encounter
--- OUTSIDE RECORDS SUMMARY | 2023-11-02 04:07 | XMS_ITS | Encounter Summary ---
Author Organization [facility] Address [address] [place] [address] Care Team Providers Care Acidizer Water Well Name Role Phone Olaf Sahni MD Primary Care Provider U navailable Reason for Referral * Radiology Services (Routine/Next Available) - Closed Specialty Diagnoses / Procedures Referred By Deann bermudez Referred To Contact Diagnoses Patellofemoral arthritis Procedures KNEES 3 VIEWS Jaciel Abrams MD Referral ID Status Reason Start Date Expiration Date Visits Re quested Visits Authorized [id number] Closed 09/16/2011 1 1 Reason for Visit * Reason Comments Joint Pain both knees Encounter Details Date Type Department Care Team (Latest Contact Info) Description 09/16/2011 11:20 EDT Office Visit [facility] Rheumatology & [place] [address] Jaciel Abrams MD Patellofemoral arthritis (Primary Dx); Ankylosing spondylitis ([facility]) Social History Tobacco Use Types Packs/Day Years [...] Sign Reading Time Taken Comments Blood Pressure 110/70 09/16/2011 1052 EDT Pulse 60 09/16/2011 1052 EDT Temperature - - Respiratory Rate 18 09/16/2011 1052 EDT Oxygen Saturation - - Inhaled Oxygen Concentration - - Weight 67.1 kg (148 lb) 09/16/2011 1052 EDT Height 167.4 cm (5' 5.9) 09/16/2011 1052 EDT Body Mass Index 23.96 09/16/2011 1052 EDT documented in this encounter Ordered Prescriptions Prescription Sig Dispensed Refills Start Date End Da te etanercept (ENBREL) 50 mg/mL (0.98 mL) injectionIndications:Anky losing spondylitis (HCC-CMS) Inject 1 mL into the skin every 10 days. 8 Syringe 4 09/16/2011 12/28/2011 documented in this encounter Progress Notes * Jaciel Abrams MD - 09/16/2011 1051 EDT Division of Rheumatology and Clinical Immunology HPI: Last seen in March for ankylosing spondylitis. Still feeling fatigued and tires easily. Someachiness in knees again for last 6 weeks and noticing more crepitance. Using Enbrel every 10 days and that seems to control the pain. Stiff in knees in a.m. Stiff for 2-3 hours. Having difficulty straightening right knee at times. Back is not a problem. Taking indocin 25 mg once daily. Had lab in [place] and creat was 1.1 and LFTs were normal. No CBC done. Current Outpatient Prescriptions Medication Sig Dispense Refill ??? indomethacin (INDOCIN) 25 mg capsule Take 1 Cap by mouth daily. 30 Cap 5 ??? etanercept (ENBREL) 50 mg/mL (0.98 mL) injection Inject 1 mL into the skin once a week. 12 Syringe 5 ??? hydrocodone-acetaminophen (NORCO) 5-325 mg per [...] Cancer Father prostate ??? Heart Disease Father [place] at 54 ??? Heart Disease Brother at [...] Weight change x If yes, duration 2 - 3 hours Gain or loss? Numbness/tingling x Eye discomfort X dry but no iritis Headaches x Mouth/Nose sores Sore throat. Saw ENT. Dx. refulux x Muscle weakness x Chest pain x Burning on urination x Palpitations x Dark/bloody urine x Shortness of breath x Frequent urination x Cough X dry. Trouble sleeping x Nausea/vomiting x Change in mood x Stomach pains/cramps x Nervous or anxious x Blood in stools x Sad or depressed x Diarrhea x Skin rash/changes x Constipation x Sun induced rash x Itching x Hand/Foot color change w/cold x Hair Loss x PHYSICAL EXAMINATION: Constitutional: thin and not in acute distress There were no vitals taken for this visit. RESPIRATORY: clear / equal BS; no adventitious sounds bilaterally MS: Walking with some difficulty because of knees. Neck normal. No upper extremity activity.Chest expansion 4 cm. Minimal restricted ROM of spine. Hips move well. Both knees only flex to 45 degrees with bilateral crepitance. Right knee tender over tibial tendon. No effusions. Good stability. Feet not examined. LABS: Chem profile from June was normal. Lab Results Component Value Date WBC 5.54 [...] 05/31/2003 Imaging: Diagnosis / Assessment: 1. Ankylosing spondylitis, doing well. 2. Bilateral knee pain. I don't feel this is related to spondylitis and may be patellofemoral arthritis or patello-tibial tendonitis Recommendations/Evaluation: 1. X-rays of both knees with sunrise view. Will be done in [facility] to be available if he needs to see orthopedist. 2. Continue Enbrel 50 mg every 10 days and indocin 25 mg daily. 3. Avoid squatting and excessive climbing which will help with tendonitis of right knee 4. Follow up in 6 months. JACIEL ABRAMS MD 09/16/2011 12:23 documented in this encounter Plan of Treatment Upcoming Encounters Date Type Department Care Team (Late st Contact Info) Description 01/17/2024 9:00 EST Office Visit [facility] Rheumatology & Immunology [address] [phone] Butch Blair NP [address] [place] [address], [address] [place] [phone] 07/26/2024 9:00 EDT Office Visit [facility] Rheumatology & Immunology - [address] [phone] Riri Seymour MD [address] [place] [address], [address] [place] [phone] Scheduled Orders Name Type Priority Associated Diagnoses Orde r Schedule KNEES 3 VIEWS Imaging Routine Patellofemoral Arthritis Ordered: 09/16/2011 documented as of this encounter Visit Diagnoses Diagnosis Patellofemoral arthritis- Primary Unspecified arthropathy, lower leg Ankylosing spondylitis (HCC-CMS) Ankylosing spondylitis documented in this encounter Discontinued Medications Medication Sig Discontinue Reason Start Date End Da te etanercept (ENBREL) 50 mg/mL (0.98 mL) injectionIndications:Anky losing spondylitis (HCC-CMS) Inject 1 mL into the skin once a week. Reorder 03/23/2011 09/16/2011 documented as of this encounter Care Teams Acidizer Water Well Relationship Specialty Start Date End Date Olaf Sahni MD PCP - General 09/20/08 11/05/20 documented as of this encounter
--- OUTSIDE RECORDS SUMMARY | 2023-11-02 04:07 | XMS_ITS | Encounter Summary ---
Author Organization [facility] Address [address] [place] [address] Care Team Providers Care Paper Making Machine Operator Name Role Phone Olaf Sahni MD Primary Care Provider Gustavo aldana Encounter Details Date Type Department Care Team (Latest Contact Info) Description 03/25/2009 8:45 EST - 03/25/2009 9:32 EST Hospital Encounter [facility] Rheumatology & Immunology [address] [phone] Jaciel Clancy MD Discharge Disposition: Home or Self Care Social History Tobacco Use Types Packs/Day Years Used Date Smoking Tobacco: Never Assessed Sex and Gender Information Value Date Recorded Sex Assigned at Not on file Gender Identity Male 11/06/2020 8:02 EDT Sexual Orientation Not on file documented as of this encounter Discharge Disposition Disposition Code Departure Means Destination Home or Self Group Home documented in this encounter Progress Notes * Inpatient, Physician - 04/21/2009 1231 EST documented in this encounter Miscellaneous Notes * Scanned Note-Null - Inpatient, Physician - 04/21/2009 1230 EST documented in this encounter Plan of Treatment Upcoming Encounters Date Type Department Care Team (Late st Contact Info) Description 01/17/2024 9:00 EST Office Visit [facility] Rheumatology & Immunology [address] [phone] Butch Blair NP [address] [place] [address], [facility] [address] [place] [phone] 07/26/2024 9:00 EDT Office Visit [facility] Rheumatology & Immunology - [facility] [address] [place] [address] Riri Seymour MD 111 [facility], Level 5 [place] [phone] documented as of this encounter Procedures Procedure Name Priority Date/Time Associated Diagnosis Comments DMARD PROFILE Routine 03/25/2009 9:52 EST COMPLETE BLOOD COUNT AND DIFFERENTIAL Routine 03/25/2009 9:52 EST documented in this encounter Results * (ABNORMAL) HEMAGRAM AND DIFFERENTIAL (03/25/2009 9:52 EST) WBC 5.14 4.0 - 10.4 K/cmm [facility] RBC 4.71 4.36 - 5.78 M/cmm [facility] Hemoglobin 15.2 13.8 - 17.3 gm/dl [facility] HCT 43.1 39.5 - 50.2 % [facility] MCV 92 81 - 95 fl [facility] MCH 32.3 27.6 - 33.0 pg [facility] MCHC 35.3 32.8 - 36.4 gm/dl [facility] PLT 176 141 - 320 K/cmm [facility] RDW-CV 13.1 11.8 - 14.1 % [facility] Neutrophils 71.1 45.5 - 79.7 % [facility] Lymphocytes 20.7 15.0 - 46.8 % [facility] Monocytes 7.3 1.8 - 12.0 % [facility] Eosinophils 0.6 0.6 - 6.9 % [facility] Basophils 0.3 0.2 - 1.4 % [facility] ABS Neutrophils 3.66 2.20 - 8.85 K/cmm [facility] ABS Lymphs 1.06(L) 1.09 - 3.30 K/cmm [facility] ABS Monocytes 0.37 0.1 - 0.8 K/cmm [facility] ABS Eosinophils 0.03 0.03 - 0.61 K/cmm [facility] ABS Basophils 0.01 0.01 - 0.11 K/cmm [facility] Type of Diff: Automated [facility] Blood specimen (specimen) 03/25/2009 9:52 EST 03/25/2009 9:54 EST Jaciel Clancy MD PACKAGES & DNA PROBE ORDERABLES Performing Organization Address [facility] Co de Phone Number [facility] [address] [place] [address] * DMARD PROFILE (03/25/2009 9:52 EST) Alkaline Phosphatase 84 38 - 126 U/L [facility] AST 27 15 - 46 U/L [facility] ALT 32 21 - 72 U/L [facility] Albumin 4.8 3.4 - 4.9 g/dl [facility] Creatinine 0.97 0.7 - 1.5 mg/dl [facility] GFR, Calculated >60 ml/min/1.7 3m2 [facility] Blood specimen (specimen) 03/25/2009 9:52 EST 03/25/2009 9:54 EST Jaciel Clancy MD CHEMISTRY & BLOOD GA S ORDERABLES Performing Organization Address [facility] Co de Phone Number [facility] [address] [place] [address] documented in this encounter Visit Diagnoses Not on filedocumented in this encounter Care Teams Paper Making Machine Operator Relationship Specialty Start Date End Date Olaf Sahni MD PCP - General 09/20/08 11/05/20 documented as of this encounter
--- OUTSIDE RECORDS SUMMARY | 2023-11-02 04:07 | XMS_ITS | Encounter Summary ---
Author Organization [facility] Address [address] [place] [address] Care Team Providers Care Skein Yarn Dyer Helper Name Role Phone Olaf Sahni MD Primary Care Provider U navailable Reason for Visit * Reason Onset Date Comments Medications Refill 08/10/2010 Encounter Details Date Type Department Care Team (Late st Contact Info) Description 08/10/2010 Refill [facility] Rheumatology & Immunology [address] [phone] Jaciel Clancy MD Medications Refill Social History [...] Cap by mouth daily. 30 Cap 5 08/10/2010 01/14/2011 documented in this encounter Plan of Treatment Upcoming Encounters Date Type Department Care Team (Late st Contact Info) Description 01/17/2024 9:00 EST Office Visit [facility] Rheumatology & Immunology [address] [phone] Butch Blair NP 111 [facility] 5 [place] [phone] 07/26/2024 9:00 EDT Office Visit [facility] Rheumatology & Immunology - [facility] [address] [place], [place] [address] Riri Seymour MD 111 [facility], Level [address] [place] [phone] documented as of this encounter Visit Diagnoses Diagnosis Ankylosing spondylitis (HCC-CMS)- Primary Ankylosing spondylitis documented in this encounter Discontinued Medications Medication Sig Discontinue Reason Start Date End Da te indomethacin (INDOCIN) 25 mg capsuleIndications:Ankylo sing spondylitis (HCC-CMS) Take 1 Cap by mouth daily. Reorder 03/24/2010 08/10/2010 documented as of this encounter Care Teams Skein Yarn Dyer Helper Relationship Specialty Start Date End Date Olaf Sahni MD PCP - General 09/20/08 11/05/20 documented as of this encounter
--- OUTSIDE RECORDS SUMMARY | 2023-11-02 04:07 | XMS_ITS | Encounter Summary ---
Author Organization [facility] Address [address] [place] [address] Care Team Providers Care Screwhead Stoner And Polisher Name Role Phone Olaf Sahni MD Primary Care Provider Gustavo aldana Encounter Details Date Type Department Care Team (Late st Contact Info) Description 03/23/2005 Before PRISM Converted Visit (Maple) [facility] - Maple conversion [address] [place] [address] Jaciel Clancy MD Social History Tobacco Use Types Packs/Day Years Used Date Smoking Tobacco: Never Assessed Sex and Gender Information Value Date Recorded Sex Assigned at Not on file Gender Identity Male 11/06/2020 8:02 EDT Sexual Orientation Not on file documented as of this encounter Progress Notes * Jaciel Clancy MD - 02/28/20092 EST DIVISION OF RHEUMATOLOGY April 29, 2005 SOCO Elise Counselor Division of Vocational Rehab [address] [place] [address] [address] [place] [address] : 1960 SSN: [id number] Dear Ms. Seymour: It is a pleasure to write with information concerning Mr. Chapman. I think it is a testament to modern medicine that he is now feeling well enough to engage in vocational rehabilitation. Erasto has ankylosing spondylitis, an inflammatory disease that affects the spine. In his case it started when he was 12 years old and I have been following him since 1995. For a number of years he was treated with conventional anti- inflammatory medications. Since the spring he has been on TNF receptor inhibitor by injections. Erasto has done extremely well on this new type of treatment for arthritis. On that treatment his inflammation has decreased as evidence both by his clinical status as well as laboratory testing. He has become less anemic and his overall sense of well being and his energy level have increased. Erasto's major restrictions are that of back involvement. He has fortunately been able to maintainrelatively good range of motion of the spine although he would be restricted in his ability to do repetitive lifting, bending or stooping. He also likely stiffens easily if he is in one position and therefore would require occasions that allow him to change positions frequently. 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 I suspect he is relatively good at that type of work. Erasto is a relatively quiet person, although I have noticed as he has felt better and as I have gotten to know him over the years he is much more interactive and I have always felt he is a very pleasant gentleman and has good intentions. He has been a good family man as best I can tell throughoutthe years that I have known him. Hopefully this will give you some ideas for working with Erasto and, as I said, I am thrilled thattomasa is trying to find some type of work to which he could adapt. Sincerely, Signed by Jaciel Clancy MD 05/06/2005 17:53 Andrzej Costello MD Jaciel Clancy MD - Jaciel Clancy MD P - O1 Job ID: [id number] Document ID: [id number] cc: *SOCO Elise counselor, Div. of Voc. Rehab, [address] [place] [address] [address]* documented in this encounter Plan of Treatment Upcoming Encounters Date Type Department Care Team (Late st Contact Info) Description 01/17/2024 9:00 EST Office Visit [facility] Rheumatology & Immunology - [address] [phone] Butch Blair NP 111 [facility], Level 5 [place] [phone] 07/26/2024 9:00 EDT Office Visit [facility] Rheumatology & Immunology - [address] [phone] Riri Seymour MD 111 [facility] 5 [place] [phone] documented as of this encounter Visit Diagnoses Not on filedocumented in this encounter Care Teams Screwhead Stoner And Polisher Relationship Specialty Start Date End Date Olaf Sahni MD PCP - General 09/20/08 11/05/20 documented as of this encounter
--- OUTSIDE RECORDS SUMMARY | 2023-11-02 04:07 | XMS_ITS | Encounter Summary ---
Author Organization [facility] Address [address] [place] [address] Care Team Providers Care Cfo Name Role Phone Olaf Sahin MD Primary Care Provider U lisandraaildino Reason for Visit * Reason Onset Date Comments Orders (Non Pre-visit) 09/24/2011 Encounter Details Date Type Department Care Team (Late st Contact Info) Description 09/24/2011 Telephone [facility] Rheumatology & Immunology [address] [address] Rosa Beard RN Orders (Non Pre-visit) Social History Tobacco Use [...] Telephone Encounter - Rosa Beard RN - 09/24/2011 0958 EDT Pt arrived at Hospital to do knee X rays without orders. Orders faxed. documented in this encounter Plan of Treatment Upcoming Encounters Date Type Department Care Team (Late st Contact Info) Description 01/17/2024 9:00 EST Office Visit [facility] Rheumatology Immunology [address] [address] Butch Blair, SHEELA 111 [facility], Level [address] [place] [phone] 07/26/2024 9:00 EDT Office Visit [facility] Rheumatology & Immunology - [facility] [address] [place], [place] [phone] Riri Seymour MD [address] [phone] documented as of this encounter Visit Diagnoses Not on filedocumented in this encounter Care Teams Cfo Relationship Specialty Start Date End Date Olaf Sahni MD PCP - General 09/20/08 11/05/20 documented as of this encounter
--- OUTSIDE RECORDS SUMMARY | 2023-11-02 04:07 | XMS_ITS | Encounter Summary ---
Author Organization [facility] Address [address] [place] [address] Care Team Providers Care Workers' Compensation Commissioner Name Role Phone Olaf Sahni MD Primary Care Provider U jovan Encounter Details Date Type Department Care Team (Late st Contact Info) Description 03/26/2008 Before PRISM Converted Visit (Maple) [facility] - Maple conversion [address] [place] [address] Jaciel Clancy MD Social History Tobacco Use Types Packs/Day Years Used Date Smoking Tobacco: Never Assessed Sex and Gender Information Value Date Recorded Sex Assigned at Not on file Gender Identity Male 11/06/2020 8:02 EDT Sexual Orientation Not on file documented as of this encounter Progress Notes * Jaciel Clancy MD - 09/28/2008 0203 EDT DIVISION OF RHEUMATOLOGY PROGRESS/FOLLOWUP NOTE - 03/26/2008 PROBLEM Ankylosing spondylitis. Scheduled appointment for Mr. Chapman, who feels things are about stable since last time. He has had some pain but he has been quite active. He is ice fishing; he works on [employer], although he is not fully employed at this time. He has some achiness in his hands at nightbut no paresthesias. His back and neck are about the same. He takes indomethacin once a day and sometimes feels he could use more. He is on Etanercept 50 mg injection weekly. He is on medications forhis hypertension, hypercholesterolemia, reflux, all of which were doing okay. He is seeing Dr. Sahni for a physical in May and will be having lab work done in a few weeks in preparation for that. MEDICATIONS 1. Indomethacin 25 mg daily. 2. B12 injections monthly. 3. Etanercept 50 mg weekly. 4. Aspirin 81 mg daily. 5. Lisinopril 10 mg quarter tablet daily. 6. Simvastatin 40 mg daily. 7. Prevacid 15 mg daily. REVIEW OF SYSTEMS He has had some fatigue but certainly not like he had a few years back. His weight has gone up a bit. He is occasionallyshort of breath and has occasional cough. Stiffness can last for two to four hours in the morning. Some headaches and some difficulty sleeping. PHYSICAL EXAM Blood pressure 144/90, pulse 66, height 66-1/4 inches, weight 151 pounds, respirations 12, pain rating 6/10 in his hands. His lungs are clear. Heart tones normal. Neck has full range of motion without pain. Spine has excellent range of motion. He has no synovitis in either the upper or lower extremities. LABORATORY In 03/2007, white count 6060, hemoglobin 15.4, platelets 253,000, creatinine 1.1, ESR 28. ASSESSMENT Ankylosing spondylitis, doing very well on Etanercept. The patient gained a considerable weight while on this, has much better energy and is less anemic. PLAN 1. Continue Etanercept 50 mg weekly. 2. Indomethacin 25 mg one to two daily, 60 tablets with five refills. 3. CBC and LFTs, creatinine and albuterol when he next has lab work done later this spring. 4. Followup in six months. Signed by Jaciel Clancy MD 04/01/2008 09:44 Jaciel Clancy MD - Jaciel Clancy MD - SARA Job ID: [id number] Doc ID: [id number] cc: Olaf Sahni MD documented in this encounter Plan of Treatment Upcoming Encounters Date Type Department Care Team (Late st Contact Info) Description 01/17/2024 9:00 EST Office Visit [facility] Rheumatology & Immunology - [address] [phone] Butch Blair, SHEELA [address] [place] [address], Level [address] [place] [phone] 07/26/2024 9:00 EDT Office Visit [facility] Rheumatology & Immunology - [address] [phone] Riri Seymour MD [address] [place] [address], Level [address] [place] [phone] documented as of this encounter Visit Diagnoses Not on filedocumented in this encounter Care Teams Workers' Compensation Commissioner Relationship Specialty Start Date End Date Olaf Sahni MD PCP - General 09/20/08 11/05/20 documented as of this encounter
--- OUTSIDE RECORDS SUMMARY | 2023-11-02 04:07 | XMS_ITS | Encounter Summary ---
Author Organization [facility] Address [address] [place] [address] Care Team Providers Care Traveler Changer Name Role Phone Unavailable Primary Care Provider Unavailabl e Encounter Details Date Type Department Care Team (Late st Contact Info) Description 03/26/2008 9:04 EST Hospital Encounter [address] [phone] Jaciel Clancy MD Social History Tobacco Use [...] Description 01/17/2024 9:00 EST Office Visit [facility] Rheumatology & Immunology [address] [phone] Butch Blair NP [address] [place] [address], [facility] 5 [place] [phone] 07/26/2024 9:00 EDT Office Visit [facility] Rheumatology & Immunology [address] [phone] Riri Seymour MD [address] [place] [address], Level [address] [place] [phone] documented as of this encounter Visit Diagnoses Not on filedocumented in this encounter
--- OUTSIDE RECORDS SUMMARY | 2023-11-02 04:07 | XMS_ITS | Encounter Summary ---
Author Organization [facility] Address [address] [place] [address] Care Team Providers Care Clearance Center Manager Name Role Phone Olaf Sahni MD Primary Care Provider Gustavo aldana Encounter Details Date Type Department Care Team (Late st Contact Info) Description 05/31/2003 Results Only [facility] Rheumatology & Immunology [address] [phone] Jaciel Clancy MD Social History Tobacco Use [...] Description 01/17/2024 9:00 EST Office Visit [facility] Rheumatology & Immunology [address] [phone] Butch Blair NP [address] [place] [phone] 07/26/2024 9:00 EDT Office Visit [facility] Rheumatology & Immunology [address] [address] Riri Seymour MD [address] [place] [phone] documented as of this encounter Procedures Procedure Name Priority Date/Time Associated Diagnosis Comments DMARD PROFILE Routine 05/31/2003 16:06 EST SED RATE Routine 05/31/2003 16:06 EST COMPLETE BLOOD COUNT AND DIFFERENTIAL Routine 05/31/2003 16:06 EST C REACTIVE PROTEIN Routine 05/31/2003 16 :06 EST documented in this encounter Results * (ABNORMAL) SED. RATE:WESTERGREN (05/31/2003 16:06 EST) Sed. Rate Westergren >100(H) 0 - 15 mm/hr [facility] 05/31/2003 16:0 6 EST 05/31/2003 16:11 EST Jaciel Clancy MD HEMATOLOGY & PF4 ORD ERABLES Performing Organization Address [facility] Co de Phone Number [facility] [address] [place] [address] * (ABNORMAL) DMARD PROFILE (05/31/2003 16:06 EST) Total Alkaline Phosphatase 116 38 - 126 U/L [facility] AST 19 15 - 46 U/L [facility] ALT 20(L) 21 - 72 U/L [facility] Albumin 4.1 3.4 - 4.9 g/dl [facility] Creatinine 1.0 0.7 - 1.5 mg/dl [facility] 05/31/2003 16:0 6 EST 05/31/2003 16:11 EST Jaciel Clancy MD CHEMISTRY & BLOOD GA S ORDERABLES Performing Organization Address [facility] Co de Phone Number [facility] [address] [place] [address] * (ABNORMAL) C-REACTIVE PROTEIN (05/31/2003 16:06 EST) C-Reactive Protein 14.2(H) <1.0 mg/dl [facility] 05/31/2003 16:0 6 EST 05/31/2003 16:11 EST Jaciel Clancy MD CHEMISTRY & BLOOD GA S ORDERABLES [facility] [address] [place] [address] * (ABNORMAL) HEMAGRAM AND DIFFERENTIAL (05/31/2003 16:06 EST) WBC 8.37 4.0 - 10.4 K/cmm [facility] RBC 4.32(L) 4.36 - 5.78 M/cmm [facility] Hemoglobin 10.1(L) 13.8 - 17.3 gm/dl [facility] HCT 31.5(L) 39.5 - 50.2 % [facility] MCV 73(L) 81 - 95 fl [facility] MCH 23.4(L) 27.6 - 33.0 pg [facility] MCHC 32.0(L) 32.8 - 36.4 gm/dl [facility] PLT 494(H) 141 - 320 K/cmm [facility] RDW-CV 18.6(H) 11.8 - 14.1 % [facility] Neutrophils 81.0(H) 45.5 - 79.7 % [facility] Lymphocytes 18.0 15.0 - 46.8 % [facility] Monocytes 1.0(L) 1.8 - 12.0 % [facility] ABS Neutrophils 6.78 2.20 - 8.85 K/cmm [facility] ABS Lymphs 1.51 1.09 - 3.30 K/cmm [facility] ABS Monocytes 0.08(L) 0.1 - 0.8 K/cmm [facility] RBC Morphology 1+ Polychromasia 1+ Anisocytosis 1+ Microcytes 1+ Hypochromia [facility] Type of Diff: Manual [facility] 05/31/2003 16:0 6 EST 05/31/2003 16:11 EST Jaciel Clancy MD PACKAGES & DNA PROBE ORDERABLES [facility] [address] [place] [address] documented in this encounter Visit Diagnoses Not on filedocumented in this encounter Care Teams Clearance Center Manager Relationship Specialty Start Date End Date Olaf Sahni MD PCP - General 09/20/08 11/05/20 documented as of this encounter
--- OUTSIDE RECORDS SUMMARY | 2023-11-02 04:07 | XMS_ITS | Encounter Summary ---
Author Organization [facility] Address [address] [place] [address] Care Team Providers Care Partnership Development Manager Name Role Phone Olaf Sahni MD Primary Care Provider Gustavo aldana Reason for Visit * Reason Comments Joint Pain Hands, hips, knees Back Pain Encounter Details Date Type Department Care Team (Latest Contact Info) Description 09/18/2012 8:30 EDT Office Visit [facility] Rheumatology & Immunology - [address] [phone] Ayaka Dash, PA-C [address] [place] [address] Ankylosing spondylitis ([facility]) (Primary Dx); Encounter for long-term (current) [...] Sign Reading Time Taken Comments Blood Pressure 105/80 09/18/2012 0822 EDT Pulse 76 09/18/2012 0822 EDT Temperature - - Respiratory Rate 18 09/18/2012 0822 EDT Oxygen Saturation - - Inhaled Oxygen Concentration - - Weight 66.2 kg (146 lb) 09/18/2012 0822 EDT Height 167.6 cm (5' 6) 09/18/2012 0822 EDT Body Mass Index 23.57 09/18/2012 0822 EDT documented in this encounter Patient Instructions * Patient Instructions* Ayaka Menendez PA - 09/18/2012 8:47 EDT Please go downstairs for labs today. Continue Enbrel but decrease the interval in between doses to every 14 days. Continue Mobic 1 tab (7.5 mg) once daily for now. But on days when pain is more severe, it is ok totake 2 tabs (15 mg) as needed. Follow up with Dr. Clancy in 6 months. documented in this encounter Ordered Prescriptions Prescription Sig Dispensed Refills Start Date End Da te etanercept (ENBREL) 50 mg/mL (0.98 mL) injectionIndications:Anky losing spondylitis ([facility]) Inject 1 mL into the skin every 14 days. 1 Syringe 0 09/19/2012 03/22/2013 documented in this encounter Progress Notes * Ayaka Menendez PA - 09/18/2012 0826 EDT Images from the original note were not included. Division of Rheumatology and Clinical Immunology Chief Complaint Patient presents with ??? Joint Pain Hands, hips, knees ??? Back Pain HPI: 51 year old male here for follow up of ankylosing spondylitis. Generally followed by Dr. Clancy,new to me. Last seen in clinic ~6 months ago. Has stretched Enbrel out to every 20 days. Definitely can't go any longer than this. Feels as though he did better when he took it every 15 days. Can tell as it's wearing off. Hands get tight and knuckles puffy. Also starts to feel it in his back. Affected joints: Pretty much head to toe today. Mostly stiffness as opposed to pain. Not sure why - this isn't typical. Took Enbrel yesterday. Increased symptoms may be related to the hot, humid weather we are having. Also just spent 1 1/2 hours in the car (has to travel to get here). Back and hips ache because of this. He also notes that he usually gets up, moves around and does stretches in the morning but didn't have time for this today. AM stiffness: Lasts 3-4 hours Physical activity: Stretches in the morning, stays active around the house Employment: Disability Functional Limitations: Bending, stooping, squatting, lifting Followed by ortho for knee pain. Had Synvisc injections bilaterally. Seemed to help - knees have been ok. Right one is a bit sore today - probably from the drive. Current Outpatient Prescriptions Medication Sig Dispense Refill ??? meloxicam (MOBIC) 7.5 mg tablet Take 1 Tab by mouth daily. Tolerates ok. No GI upset. Seems to help. 30 Tab 11 ??? etanercept (ENBREL) 50 mg/mL (0.98 mL) injection Inject 1 mL into the skin every 10 days. Has spread injections out to every 20 days. Feels he did better with shorter intervals. Tolerates ok. No recent infections. 8 Syringe 4 ??? hydrocodone-acetaminophen (NORCO) 5-325 mg per tablet Take 1 Tab by mouth every 4 hours as needed. Managed by PCP. Only takes as needed. Mostly at bedtime. ??? simvastatin (ZOCOR) 40 mg tablet Take [...] Cancer Father prostate ??? Heart Disease Father PA at 54 ??? Heart Disease Brother at age 40 History Social History ??? Marital Status: Occupational History ??? Disabled Social History Main Topics ??? Smoking status: Never Smoker ??? Smokeless tobacco: Not on file ??? Alcohol Use: Yes ??? Drug Use: REVIEW OF SYSTEMS: Yes No Yes No Fever x Joint pain x Fatigue x Muscle pain x Night sweats x Morning stiffness x Weight change x If yes, duration 3 to 4 hours Gain or loss? Numbness/tingling x Eye discomfort X Dry eyes but no iritis Headaches x Mouth/Nose sores x Muscle weakness [...] nourished male in no acute distress. BP 105/80 Pulse 76 Resp 18 Ht 167.6 cm (66) Wt 66.225 kg (146 lb) BMI 23.56 kg/m2 HEENT: PERRL, EOM's intact, conjuctiva clear, no occular inflammation. Oropharynx clear, throat normal without erythema or exudate, no oral ulcers. No lymphadenopathy. RESPIRATORY: Clear to auscultation bilaterally; no adventitious sounds. CARDIOVASCULAR: Regular rate and rhythm, normal S1S2, no murmurs/gallops/rubs. No pedal edema. SKIN: No rash. NEUROLOGIC: Mental status normal. Gait normal without assistive device. Moves on/off exam table independently. Muscle strength 5/5 throughout except for right knee 3/5. MUSCULOSKELETAL: A complete msk exam including bilateral upper and lower extremities was done and was normal except for abnormal findings shown on homonculus. LABS: Phlebotomy Only on 03/23/2011 Component Date Value ??? WBC 03/23/2011 5.54 ??? RBC 03/23/2011 4.55 ??? Hemoglobin 03/23/2011 14.2 ??? HCT 03/23/2011 40.7 ??? MCV 03/23/2011 89 ??? MCH 03/23/2011 31.2 ??? MCHC 03/23/2011 35.0 ??? PLT 03/23/2011 186 ??? RDW-CV 03/23/2011 13.1 ??? Neutrophils 03/23/2011 67.6 ??? Lymphocytes 03/23/2011 24.4 ??? Monocytes 03/23/2011 6.8 ??? Eosinophils 03/23/2011 0.9 ??? Basophils 03/23/2011 0.3 ??? ABS Neutrophils 03/23/2011 3.75 ??? ABS Lymphs 03/23/2011 1.35 ??? ABS Monocytes 03/23/2011 0.38 ??? ABS Eosinophils 03/23/2011 0.05 ??? ABS Basophils 03/23/2011 0.02 ??? Type of Diff: 03/23/2011 Automated ??? Total Alkaline Phosphata* 03/23/2011 101 ??? AST 03/23/2011 22 ??? ALT 03/23/2011 30 ??? Albumin 03/23/2011 4.5 ??? Creatinine 03/23/2011 0.99 ? ? GFR, Calculated 03/23/2011 >60 Imaging: None recent Diagnosis / Assessment: Ankylosing spondylitis. Overall seems to be doing fairly well on Enbrel although having a bit more pain and stiffness since increasing the interval in between doses. Will go back to every 2 weeks. Also on NSAID therapy (with room to adjust Meloxicam as needed). Encounter for fpc use of medication. Due for labs now. Recommendations/Evaluation: 1. Labs (CBCD/DMARD profile/ESR) today. 2. Continue Enbrel but decrease the interval in between doses to every 14 days. 3. Continue Meloxicam 7.5 mg once daily for now but on days when pain is more severe ok to take 15 mg as needed. 4. Follow up with Dr. Clancy in 6 months. Barriers to learning identified: No Patient verbalizes understanding and agrees with plan: Yes I was directly supervised by Dr. Hewitt who was in the suite and immediately available for the entire time the service was provided. BRANDY Zapata 09/18/2012 10:04 Attestation statement: Supervising Physician Sobeida Hewitt MD documented in this encounter Plan of Treatment Upcoming Encounters Date Type Department Care Team (Late st Contact Info) Description 01/17/2024 9:00 EST Office Visit [facility] Rheumatology & [place] [address] Butch Blair NP [address] [phone] 07/26/2024 9:00 EDT Office Visit [facility] Rheumatology & Immunology - [address] [phone] Riri Seymour MD [address] [place] [phone] documented as of this encounter Visit Diagnoses Diagnosis Ankylosing spondylitis ([facility])- Primary Ankylosing spondylitis Encounter for long-term (current) use of other medications documented in this encounter Discontinued Medications Medication Sig Discontinue Reason Start Date End Da te etanercept (ENBREL) 50 mg/mL (0.98 mL) injectionIndications:Anky losing spondylitis ([facility]) Inject 1 mL into the skin every 10 days. Order modification 12/28/2011 09/19/2012 documented as of this encounter Care Teams Partnership Development Manager Relationship Specialty Start Date End Date Olaf Sahni MD PCP - General 09/20/08 11/05/20 documented as of this encounter
--- OUTSIDE RECORDS SUMMARY | 2023-11-02 04:07 | XMS_ITS | Encounter Summary ---
Author Organization Health system Address [address] [place] [address] Care Team Providers Care Customer Service Representative Teacher Name Role Phone Olaf Sahni MD Primary Care Provider Gustavo aldana Encounter Details Date Type Department Care Team (Late st Contact Info) Description 03/15/2006 Before PRISM Converted Visit ([facility]) [facility] - Maple conversion [address] [place] [address] Jaciel Clancy MD Social History Tobacco Use Types Packs/Day Years Used Date Smoking Tobacco: Never Assessed Sex and Gender Information Value Date Recorded Sex Assigned at Not on file Gender Identity Male 11/06/2020 8:02 EDT Sexual Orientation Not on file documented as of this encounter Progress Notes * Jaciel Clancy MD - 03/13/2009 1608 EST DIVISION OF RHEUMATOLOGY PROGRESS/FOLLOWUP NOTE - 03/15/2006 PROBLEM: Ankylosing spondylitis. SUBJECTIVE: Erasto continues to do quite well on the etanercept 50 mg weekly noticing about one totwo days before his next injection he is feeling a bit more achy. His weight has risen from a low of 117 four years ago to 144 pounds. His general well being is much improved. He continues to work with vocational rehab trying to find something he can do work-[place]. 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 He does not feel he can do mechanical auto work because of his back. He has reduced his indomethacin to 25 mg daily. He takes his Actonel once weekly and is tolerating that well. He is experiencing some pain in his right lower thoracic area and some stiffness in his neck. He has noted some problems with his memory but says that has been going on for some time and does not seem to be progressing. We also talked about his son who has been having some problems at school and about possible help for him. MEDICATIONS: 1. Etanercept 50 mg subcu weekly. 2. Indomethacin 25 mg daily. 3. Aspirin 81 mg daily. 4. Actonel 35 mg weekly. 5. Prevacid 15 mg daily. 6. Hydrochlorothiazide 12.5 mg daily. 7. B12 injections monthly. 8. Atenolol 25 mg daily. OBJECTIVE: BP 112/68, pulse 60, height 66 inches, and weight 144 pounds. Pain rating 4/10. The patient looks well. In fact, with his general weight gain over the last year or two he is looking much healthier. His lungs are clear. Heart tones regular without murmur. Neck motion is quite good. His chest expansion is 4 cm. Finger to floor distance 21 cm. Head to wall distance 0 cm. No recent laboratory testing. His last sedimentation rate from March 2005 was 1. ASSESSMENT: Ankylosing spondylitis doing very well on the etanercept. His anemia has resolved. His sedimentation dropped significantly and a sense of well being has markedly improved. His exam today is rather unremarkable. PLAN: 1. Continue Actonel 35 mg weekly, #4 with five refills. I think when he returns we can probably stop that with improvement in his bones that has occurred already. 2. CMP, CBC with diff and sed rate. 3. Continue etanercept 50 mg weekly. Call for refills. 4. Continue indomethacin 25 mg daily p.r.n. 5. We discussed his memory problems, the fact that it was probably unrelated to the medications he is on given that the list he is on at this time and that I could not offer further advice regarding this. 6. Followup in six months. AST-52, ALT-79, Alb-5.0, glucose-101 (non fasting). Will recheck lab in 10 days./ESL Signed by Jaciel Clancy MD 03/16/2006 09:17 Andrzej Costello MD Jaciel Clancy MD - Herbert Clancy MD P - ds Job ID: [id number] Document ID: [id number] cc: Olaf Sahni MD documented in this encounter Plan of Treatment Upcoming Encounters Date Type Department Care Team (Late st Contact Info) Description 01/17/2024 9:00 EST Office Visit [facility] Rheumatology & Immunology [address] [address] Butch Blair NP [address] [place] [phone] 07/26/2024 9:00 EDT Office Visit [facility] Rheumatology & Immunology [address] [address] Riri Seymour MD [address] [place] [phone] documented as of this encounter Visit Diagnoses Not on filedocumented in this encounter Care Teams Customer Service Representative Teacher Relationship Specialty Start Date End Date Olaf Sahni MD PCP - General 09/20/08 11/05/20 documented as of this encounter
--- OUTSIDE RECORDS SUMMARY | 2023-11-02 04:07 | XMS_ITS | Encounter Summary ---
Author Organization [facility] Address [address] [place] [address] Care Team Providers Care Instructor Product Inspection Name Role Phone Olaf Sahni MD Primary Care Provider U lisandraailable Reason for Visit * Reason Onset Date Comments Medications Refill 09/23/2010 Encounter Details Date Type Department Care Team (Late st Contact Info) Description 09/23/2010 Refill [facility] Rheumatology & Immunology [address] [phone] Jaciel Clancy MD Medications Refill Social History [...] 01/17/2024 9:00 EST Office Visit [facility] Rheumatology & Immunology [address] [phone] Butch Blair NP [address] [place] [phone] 07/26/2024 9:00 EDT Office Visit [facility] Rheumatology Immunology [address] [phone] Riri Seymour MD [address] [place] [phone] documented as of this encounter Visit Diagnoses Diagnosis Ankylosing spondylitis ([facility])- Primary Ankylosing spondylitis documented in this encounter Care Teams Instructor Product Inspection Relationship Specialty Start Date End Date Olfa Sahni MD PCP - General 09/20/08 11/05/20 documented as of this encounter
--- OUTSIDE RECORDS SUMMARY | 2023-11-02 04:07 | XMS_ITS | Encounter Summary ---
Author Organization [facility] Address [address] [place] [address] Care Team Providers Care Coil Former Name Role Phone Unavailable Primary Care Provider Unavailabl e Encounter Details Date Type Department Care Team (Latest Contact Info) Description 10/17/2001 15:03 EDT Hospital Encounter [facility] - [address] [address] Jaciel Clancy MD Discharge Disposition: Auto Discharge [...] 01/17/2024 9:00 EST Office Visit [facility] Rheumatology & Immunology [address] [phone] Butch Blair NP [address] [place] [phone] 07/26/2024 9:00 EDT Office Visit [facility] Rheumatology & Immunology [address] [phone] Riri Seymour MD [address] [place] [phone] documented as of this encounter Visit Diagnoses Not on filedocumented in this encounter
--- OUTSIDE RECORDS SUMMARY | 2023-11-02 04:07 | XMS_ITS | Encounter Summary ---
Author Organization [facility] Address [address] [place] [address] Care Team Providers Care Soaker Hides Name Role Phone Olaf Sahni MD Primary Care Provider U navailable Reason for Visit * Reason Onset Date Comments Medications Refill 09/14/2010 Encounter Details Date Type Department Care Team (Late st Contact Info) Description 09/14/2010 Refill [facility] Rheumatology & Immunology [address] [phone] Jaciel Clancy MD Medications Refill Social History [...] 50 mg/mL (0.98 mL) injectionIndications:Anky losing spondylitis ([facility]) Inject 1 mL into the skin every 7 days. 8 Syringe 5 09/14/2010 10/06/2010 documented in this encounter Plan of Treatment Upcoming Encounters Date Type Department Care Team (Late st Contact Info) Description 01/17/2024 9:00 EST Office Visit [facility] Rheumatology & Immunology [address] [phone] Butch Blair, BUSINESS ANALYST INTERN [address] [facility], [address] [place] [phone] 07/26/2024 9:00 EDT Office Visit [facility] Rheumatology & Immunology - [facility] [address] [place] [address] Riri Seymour MD [address] [place] [address], [address] [place] [phone] documented as of this encounter Visit Diagnoses Diagnosis Ankylosing spondylitis ([facility])- Primary Ankylosing spondylitis documented in this encounter Discontinued Medications Medication Sig Discontinue Reason Start Date End Da te etanercept (ENBREL) 50 mg/mL (0.98 mL) injectionIndications:Anky losing spondylitis ([facility]) Inject 1 mL into the skin every 7 days. Reorder 10/22/2009 09/14/2010 documented as of this encounter Care Teams Soaker Hides Relationship Specialty Start Date End Date Olaf Sahni MD PCP - General 09/20/08 11/05/20 documented as of this encounter
--- OUTSIDE RECORDS SUMMARY | 2023-11-02 04:07 | XMS_ITS | Encounter Summary ---
Author Organization [facility] Address [address] [place] [address] Care Team Providers Care Crew Caller Name Role Phone Unavailable Primary Care Provider Unavailabl e Encounter Details Date Type Department Care Team (Latest Contact Info) Description 05/31/2003 15:19 EST Hospital Encounter [facility] - Other [address] [place] [phone] Jaciel Clancy MD Discharge Disposition: Auto Discharge [...] 01/17/2024 9:00 EST Office Visit [facility] Rheumatology & Immunology [address] [phone] Butch Blair NP [address] [place] [phone] 07/26/2024 9:00 EDT Office Visit [facility] Rheumatology & Immunology [address] [phone] Riri Seymour MD [address] [place] [phone] documented as of this encounter Procedures Procedure Name Priority Date/Time Associated Diagnosis Comments THORACIC SPINE 2-3 VIEWS Routine 05/31/2003 16:07 EST CERVICAL SPINE AP&LAT Routine 05/31/2003 16:07 EST L SPINE 2-3 VIEWS Routine 05/31/2003 16: 07 EST documented in this encounter Results * L SPINE 2-3 VIEWS (05/31/2003 16:07 EST) Anatomical Region Laterality Modality Other 05/31/2003 16:0 7 EST Impressions 11/15/2008 16:59 EDT IMPRESSION: Mild degenerative change of the cervical spine. THORACIC SPINE: AP and lateral views of the thoracic spine demonstrate anatomic posterior alignment. Mild degenerative change is noted at the midthoracic spine disc spaces. No malalignment is seen. There are punctate, metallic densities projected over the left upper quadrant, of uncertain significance. This may be outside of the patient, or may represent a foreign body. LUMBAR SPINE: AP and lateral views of the lumbar spine demonstrate lumbar vertebral body heights, mineralization and posterior alignment to be maintained. There is mild facet arthropathy at L5-S1. Note is made that the sacroiliac joints are fused. IMPRESSION: Fused sacroiliac joints. /pillo Narrative 11/15/2008 16:59 EDT ANKYLOSING SPONDYLITIS R/O BASELINE FOR STARTING EMBREL. CERVICAL, THORACIC & LUMBAR SPINE CERVICAL SPINE: AP, odontoid, swimmer's and lateral views of the cervical spine demonstrate bony mineralization, cervical vertebral body heights and posterior alignment to be preserved. Prevertebral soft tissues and spinal laminar alignment are maintained. There is mild disc space loss at C3-4, C4-5 and C5-6. Procedure Note Abhinav Tarango, PT - 11/15/2008 ANKYLOSING SPONDYLITIS R/O BASELINE FOR STARTING EMBREL. CERVICAL, THORACIC & LUMBAR SPINE CERVICAL SPINE: AP, odontoid, swimmer's and lateral views of the cervical spine demonstrate bony mineralization, cervical vertebral body heights and posterior alignment to be preserved. Prevertebral soft tissues and spinal laminar alignment are maintained. There is mild disc space loss at C3-4, C4-5 and C5-6. IMPRESSION IMPRESSION: Mild degenerative change of the cervical spine. THORACIC SPINE: AP and lateral views of the thoracic spine demonstrate anatomic posterior alignment. Mild degenerative change is noted at the midthoracic spine disc spaces. No malalignment is seen. There are punctate, metallic densities projected over the left upper quadrant, of uncertain significance. This may be outside of the patient, or may represent a foreign body. LUMBAR SPINE: AP and lateral views of the lumbar spine demonstrate lumbar vertebral body heights, mineralization and posterior alignment to be maintained. There is mild facet arthropathy at L5-S1. Note is made that the sacroiliac joints are fused. IMPRESSION: Fused sacroiliac joints. /[facility] Jaciel COUCH DIAGNOSTIC IMAGI NG ORDERABLES * CERVICAL SPINE AP&LAT (05/31/2003 16:07 EST) Anatomical Region Laterality Modality Other 05/31/2003 16:0 7 EST Narrative 11/15/2008 16:59 EDT ANKYLOSING SPONDYLITIS R/O BASELINE FOR STARTING EMBREL Procedure Note Abhinav Tarango, PT - 11/15/2008 ANKYLOSING SPONDYLITIS R/O BASELINE FOR STARTING EMBREL Jaciel COUCH DIAGNOSTIC IMAGI NG ORDERABLES * THORACIC SPINE 2-3 VIEWS (05/31/2003 16:07 EST) Anatomical Region Laterality Modality Other 05/31/2003 16:0 7 EST Narrative 11/15/2008 16:59 EDT ANKYLOSING SPONDYLITIS R/O BASELINE FOR STARTING EMBREL Procedure Note Abhinav Tarango PT - 11/15/2008 ANKYLOSING SPONDYLITIS R/O BASELINE FOR STARTING EMBREL Jaciel COUCH DIAGNOSTIC IMAGI NG ORDERABLES documented in this encounter Visit Diagnoses Not on filedocumented in this encounter
--- OUTSIDE RECORDS SUMMARY | 2023-11-02 04:07 | XMS_ITS | Encounter Summary ---
Author Organization [facility] Address [address] [place] [address] Care Team Providers Care Nutrition Manager Name Role Phone Olaf Sahni MD Primary Care Provider U navailable Reason for Visit * Reason Onset Date Comments Medications Refill 09/18/2010 Pharmacy need s new script & prior auth for Enbrel. Fax is [phone] Encounter Details Date Type Department Care Team (Late st Contact Info) Description 09/18/2010 Refill [facility] Rheumatology & Immunology [address] [phone] Jaciel Clancy MD Medications Refill (Pharmacy needs new script & prior auth for Enbrel. Fax is [phone]) Social History Tobacco Use Types Packs/Day Years [...] Office Visit [facility] Rheumatology & Immunology [address] [phone] Butch Blair NP [address] [facility], [address] [place] [phone] 07/26/2024 9:00 EDT Office Visit [facility] Rheumatology & Immunology - [address] [phone] Riri Seymour MD [address] [place] [address], [address] [place] [phone] documented as of this encounter Visit Diagnoses Diagnosis Ankylosing spondylitis ([facility])- Primary Ankylosing spondylitis documented in this encounter Care Teams Nutrition Manager Relationship Specialty Start Date End Date Olaf Sahni MD PCP - General 09/20/08 11/05/20 documented as of this encounter
--- OUTSIDE RECORDS SUMMARY | 2023-11-02 04:07 | XMS_ITS | Encounter Summary ---
Author Organization [facility] Address [address] [place] [address] Care Team Providers Care Machine Clothing Replacer Name Role Phone Olaf Sahni MD Primary Care Provider Gustavo aldana Encounter Details Date Type Department Care Team (Latest Contact Info) Description 09/24/2008 8:14 EDT - 09/24/2008 23:59 EDT Hospital Encounter [facility] Rheumatology Immunology [address] [phone] Jaciel Clancy MD Discharge Disposition: Home or Self Care Social History Tobacco Use Types Packs/Day Years Used Date Smoking Tobacco: Never Assessed Sex and Gender Information Value Date Recorded Sex Assigned at Not on file Gender Identity Male 11/06/2020 8:02 EDT Sexual Orientation Not on file documented as of this encounter Discharge Disposition Disposition Code Departure Means Destination Home or Self Nursing Home documented in this encounter Plan of Treatment Upcoming Encounters Date Type Department Care Team (Late st Contact Info) Description 01/17/2024 9:00 EST Office Visit [facility] Rheumatology & Immunology [address] [phone] Butch Blair NP [address] [place] [phone] 07/26/2024 9:00 EDT Office Visit [facility] Rheumatology Immunology [address] [phone] Riri Seymour MD [address] [place] [phone] documented as of this encounter Visit Diagnoses Not on filedocumented in this encounter Care Teams Machine Clothing Replacer Relationship Specialty Start Date End Date Olaf Sahni MD PCP - General 09/20/08 11/05/20 documented as of this encounter
--- OUTSIDE RECORDS SUMMARY | 2023-11-02 04:07 | XMS_ITS | Encounter Summary ---
Author Organization [facility] Address [address] [place] [address] Care Team Providers Care [employer] Teacher Name Role Phone Olaf Sahni MD Primary Care Provider Gustavo fryaildino Reason for Visit * Reason Onset Date Comments Results 10/15/2011 Encounter Details Date Type Department Care Team (Late st Contact Info) Description 10/15/2011 Telephone [facility] Rheumatology & Immunology - [facility] [address] [place] [address] Jaciel Clancy MD Results Social History Tobacco Use Types Packs/Day [...] encounter Miscellaneous Notes * Telephone Encounter - Jaciel Clancy MD - 10/15/2011 1642 EDT I spoke with Erasto. I reviewed his x-rays and he has some patello-femoral arthritis otherwise knees look normal. I suggested that he could attend PT but he is already using weights and doing leg lifts. I advised that he continue those and take OTC NSAIDs prn in addition to his low dose indocin. Option 2 would be to see ortho. He will continue with exercise for now. * Telephone Encounter - Tatyana Renner RN - 10/15/2011 1003 EDT What would you like us to relay to the patient regarding x-rays? ( results in scan) * Telephone Encounter - Marivel Coates - 10/15/2011 0939 EDT Patient calling for results of xrays done on 09/23 at [facility], result in [facility]. documented in this encounter Plan of Treatment Upcoming Encounters Date Type Department Care Team (Late st Contact Info) Description 01/17/2024 9:00 EST Office Visit [facility] Rheumatology & Immunology [address] [phone] Butch Blair NP [address] [place] [phone] 07/26/2024 9:00 EDT Office Visit [facility] Rheumatology & Immunology [address] [phone] Riri Seymour MD [address] [place] [phone] documented as of this encounter Visit Diagnoses Not on filedocumented in this encounter Care Teams [employer] Teacher Relationship Specialty Start Date End Date Olaf Sahni MD PCP - General 09/20/08 11/05/20 documented as of this encounter
--- OUTSIDE RECORDS SUMMARY | 2023-11-02 04:07 | XMS_ITS | Encounter Summary ---
Author Organization [facility] Address [address] [place] [address] Care Team Providers Care Underwriting Intern Name Role Phone Olaf Sahni MD Primary Care Provider U navailable Reason for Visit * Reason Comments Joint Pain Ankylosing spondylit is. Pt states things aren't too bad Encounter Details Date Type Department Care Team (Latest Contact Info) Description 09/23/2009 9:15 EDT Office Visit [facility] Rheumatology & Immunology - [address] [address] Jaciel Clancy MD Ankylosing spondylitis ([facility]) (Primary Dx) Social History Tobacco [...] Sign Reading Time Taken Comments Blood Pressure 110/80 09/23/2009 0903 EDT Pulse 64 09/23/2009 0903 EDT Temperature - - Respiratory Rate 16 09/23/2009 0903 EDT Oxygen Saturation - - Inhaled Oxygen Concentration - - Weight 66.7 kg (147 lb) 09/23/2009 0903 EDT Height 167.6 cm (5' 6) 09/23/2009 0903 EDT Body Mass Index 23.73 09/23/2009 0903 EDT documented in this encounter Ordered Prescriptions Prescription Sig Dispensed Refills Start Date End Da te indomethacin (INDOCIN) 25 mg capsuleIndications:Ankylos ing spondylitis ([facility]) Take 1 Cap by mouth daily. 30 Cap 11 09/23/2009 02/10/2010 documented in this encounter Progress Notes * Kaylen Cedeño - 09/23/2009 0927 EDT Subjective: Patient ID: Erasto Chapman is an 48 y.o. male. Chief Complaint Patient presents with ??? Joint Pain Ankylosing spondylitis. Pt states things aren't too bad HPI Erasto is here for a follow-up appointment. He states that overall is is doing well in regards to the arthritis. He does have back pain in the morning, mainly in the cervical region, that lasts 2-3 hours. He does some exercises in the morning to lossen the joints. He denies having decreased movement in the spinal region. His hands become more painful in the evenings after he has been working with them. When the pain is bad he takes Hydrocodone (0.5-1 tab) before going to bed. Problem with leftfoot because of crossing over of toes. Using spacer. Patient Active Problem List Diagnoses Code ??? Ankylosing spondylitis 720.0 ??? B12 deficiency 266.2CU ??? Hypertension 401.9AJ Past Medical History Diagnosis Date ??? Arthritis Past Surgical History Procedure Date ??? Foot surgery 1980 Replaced joint in big toe History reviewed. No pertinent family history. Social History Substance Use Topics ??? Tobacco Use: Never ??? Alcohol Use: Yes Current outpatient prescriptions Medication Sig Dispense Refill ??? etanercept (ENBREL) 50 mg/mL (0.98 mL) injection Inject 50 mg into the skin every 7 days. ??? simvastatin (ZOCOR) 40 mg tablet Take 40 mg by mouth daily. ??? cyanocobalamin (VITAMIN B12) 1,000 mcg/mL injection Inject 100 mcg into the muscle every 28 days. ??? indomethacin (INDOCIN) 25 mg capsule Take 25 mg by mouth daily. ??? lisinopril (PRINIVIL, ZESTRIL) 5 mg tablet Take 5 mg by mouth daily. ??? rabeprazole (ACIPHEX) 20 mg tablet Take 20 mg by mouth daily. ??? cyanocobalamin (VITAMIN B-12) 1,000 mcg tablet Take 1,000 mcg by mouth daily. ??? Aspirin 81 mg Tab Take 81 mg by mouth daily. No Known Allergies Review of Systems Constitutional: Positive for malaise/fatigue. Negative for chills and weight loss. HENT: Positive for neck pain. Eyes: Negative for double vision. Respiratory: Positive for cough (chronic, has been seen by a inventory transcriber in the past. ). Negativefor shortness of breath and wheezing. Cardiovascular: Negative for chest pain and palpitations. Gastrointestinal: Negative for abdominal pain, diarrhea and constipation. Genitourinary: Negative for dysuria and urgency. Musculoskeletal: Positive for back pain and joint pain. See HPI Skin: Negative for rash and itching. Neurological: Positive for sensory change (in Left foot, related to arthistis and pervious surgeries. ). Negative for headaches. All other systems reviewed and are negative. Objective: BP 110/80 Pulse 64 Resp 16 Ht 1.676 m (5' 6) Wt 66.679 kg (147 lb) Physical Exam Lungs clear. Heart: No murmur. MS: Head to wall 0 inches. Chest expansion - 5 cm. Good ROM of back. No peripheral arthritis exceptfor feet. Left 3, 4 toes over riding 2nd. Also pressure between 4th and 5th toes. right foot ok. Assessment: Ankylosing spondylitis, doing well as far as inflammation. SOme upper back pain. Fixed changes leftfoot. Plan: Erasto was seen today for joint pain. Diagnoses and associated orders for this visit: - Ankylosing spondylitis - Etanercept 50 mg/ml (0.98 ml) sub-q syringe -- Inject 50 mg into the skin every 7 days. - Indomethacin 25 mg cap -- Take 25 mg by mouth daily. - Discussion of surgery of left foot. Wants to think about it. - F/U in 6 months. Attestation statement: I saw and examined the patient. I agree with the findings and plan of care documented in the resident's/fellow's note. I was present during the entire procedure. documented in this encounter Plan of Treatment Upcoming Encounters Date Type Department Care Team (Late st Contact Info) Description 01/17/2024 9:00 EST Office Visit [facility] Rheumatology & Immunology - [address] [phone] Butch Blair NP [address] [place] [address], [address] [place] [phone] 07/26/2024 9:00 EDT Office Visit [facility] Rheumatology & Immunology - [facility] [address] [place], [place] [phone] Riri Seymour MD [address] [phone] documented as of this encounter Visit Diagnoses Diagnosis Ankylosing spondylitis (HCC-CMS)- Primary Ankylosing spondylitis documented in this encounter Discontinued Medications Medication Sig Discontinue Reason Start Date End Da te indomethacin (INDOCIN) 25 mg capsuleIndications:Ankylo sing spondylitis (HCC-CMS) Take 25 mg by mouth daily. Reorder 09/23/2009 documented as of this encounter Historical Medications * This list may reflect changes made after this encounter. Medication Sig Dispensed Refills Start Date End Date Aspirin 81 mg Tab Take 1 Tablet by mouth daily. cyanocobalamin (VITAMIN B-12) 1,000 mcg tablet Take 1 Tablet by mouth daily. cyanocobalamin (VITAMIN B12) 1,000 mcg/mL injection Inject 0.1 mL into the muscle every 28 days. simvastatin (ZOCOR) 40 mg tablet Take 1 Tablet by mouth daily. rabeprazole (ACIPHEX) 20 mg tablet Take 20 mg by mouth daily. 09/14/2013 lisinopril (PRINIVIL, ZESTRIL) 5 mg tablet Take 10 mg by mouth daily. 07/05/2022 indomethacin (INDOCIN) 25 mg capsuleIndications:Ankylo sing spondylitis (HCC-CMS) Take 25 mg by mouth daily. 09/23/2009 etanercept (ENBREL) 50 mg/mL (0.98 mL) injectionIndications:Anky losing spondylitis (HCC-CMS) Inject 50 mg into the skin every 7 days. 10/22/2009 added in this encounter Care Teams Underwriting Intern Relationship Specialty Start Date End Date Olaf Sahni MD PCP - General 09/20/08 11/05/20 documented as of this encounter
--- OUTSIDE RECORDS SUMMARY | 2023-11-02 04:07 | XMS_ITS | Encounter Summary ---
Author Organization [facility] Address [address] [place] [address] Care Team Providers Care Hazard Mitigation Officer Name Role Phone Olaf Sahni MD Primary Care Provider U lisandraailable Reason for Visit * Reason Onset Date Comments Medications Refill 09/28/2010 Encounter Details Date Type Department Care Team (Late st Contact Info) Description 09/28/2010 Refill [facility] Rheumatology & Immunology [address] [phone] Jaciel Clancy MD Medications Refill Social History [...] Visit [facility] Rheumatology & Immunology [address] [phone] Butch Blair NP [address] [place] [phone] 07/26/2024 9:00 EDT Office Visit [facility] Rheumatology Immunology [address] [phone] Riri Seymour MD [address] [place] [phone] documented as of this encounter Visit Diagnoses Diagnosis Ankylosing spondylitis ([facility]) Ankylosing spondylitis documented in this encounter Care Teams Hazard Mitigation Officer Relationship Specialty Start Date End Date Olaf Sahni MD PCP - General 09/20/08 11/05/20 documented as of this encounter
--- OUTSIDE RECORDS SUMMARY | 2023-11-02 04:07 | XMS_ITS | Encounter Summary ---
Author Organization [facility] Address [address] [place] [address] Care Team Providers Care Election Clerk Name Role Phone Unavailable Primary Care Provider Unavailabl e Encounter Details Date Type Department Care Team (Latest Contact Info) Description 04/10/2001 13:18 EST Hospital Encounter [facility] - [address] [address] Jaciel Clancy MD Discharge Disposition: Auto Discharge [...] Info) Description 01/17/2024 9:00 EST Office Visit [facility] Rheumatology & Immunology [address] [phone] Butch Blair NP [address] [place] [phone] 07/26/2024 9:00 EDT Office Visit [facility] Rheumatology & Immunology [address] [phone] Riri Seymour MD [address] [place] [phone] documented as of this encounter Procedures Procedure Name Priority Date/Time Associated Diagnosis Comments SHOULDER 2 OR MORE VIEWS Routine 10/17/2001 10:57 EDT KNEE 3 VIEWS Routine 04/10/2001 15:47 EST documented in this encounter Results * SHOULDER 2 OR MORE VIEWS (10/17/2001 10:57 EDT) Anatomical Region Laterality Modality Other 10/17/2001 10:5 7 EDT Narrative 12/18/2008 5:45 EDT PAINFUL ,DECREASED ROM RIGHT SHOULDER. HAS ANKYLOSING SPONDYLITIS R/O DEGENERATIVE CHANGE, R/O AC ARTHRITIS RIGHT SHOULDER 10/17/01 COMPARISON: none FINDINGS: AP internal and external rotation and axillary views. There are mild degenerative appearing arthritic changes in the AC and glenohumeral joint. There is questionable erosive change in the greater tuberosity attachment site of the rotator cuff. The bones are slightly osteopenic. No fracture is seen. D 10/20/01 T 10/22/01 /jessica Procedure Note Scott Kenny MD - 12/18/2008 PAINFUL ,DECREASED ROM RIGHT SHOULDER. HAS ANKYLOSING SPONDYLITIS R/O DEGENERATIVE CHANGE, R/O AC ARTHRITIS RIGHT SHOULDER 10/17/01 COMPARISON: none FINDINGS: AP internal and external rotation and axillary views. There are mild degenerative appearing arthritic changes in the AC and glenohumeral joint. There is questionable erosive change in the greater tuberosity attachment site of the rotator cuff. The bones are slightly osteopenic. No fracture is seen. D 10/20/01 T 10/22/01 /jessica Jaciel Clancy MD IMG DIAGNOSTIC IMAGI NG ORDERABLES * KNEE 3 VIEWS (04/10/2001 15:47 EST) Anatomical Region Laterality Modality Other 04/10/2001 15:4 7 EST Impressions 01/24/2009 4:45 EST IMPRESSION: Degenerative changes of the knee and marked degenerative change of the patellofemoral joint. dw Narrative 01/24/2009 4:45 EST ANKYLOSIS SPONDYLITIS, HYPERFLEXION LEFT KNEE R/O NARROWING ARTHRITIS, TERRY. PATELLA FEMAL LEFT KNEE: 04/10/01 AP, lateral and sunrise views of the knees were obtained. There are no comparison films. There is moderate medial femorotibial joint space loss. Alignment remains anatomic. There is bony proliferative change off the medial and lateral joint line with slight subchondral irregularity of the medial femoral condyle anteriorly. There is extensive bony proliferative change off the superior aspect of the trochlea as well as the superior patella. There is diffuse patellofemoral joint space loss, medial and lateral patellar osteophyte formation. There is enthesopathic change within the quadriceps tendon and patellar tendon. Procedure Note Abhinav Tarango, PT - 01/24/2009 ANKYLOSIS SPONDYLITIS, HYPERFLEXION LEFT KNEE R/O NARROWING ARTHRITIS, TERRY. PATELLA FEMAL LEFT KNEE: 04/10/01 AP, lateral and sunrise views of the knees were obtained. There are no comparison films. There is moderate medial femorotibial joint space loss. Alignment remains anatomic. There is bony proliferative change off the medial and lateral joint line with slight subchondral irregularity of the medial femoral condyle anteriorly. There is extensive bony proliferative change off the superior aspect of the trochlea as well as the superior patella. There is diffuse patellofemoral joint space loss, medial and lateral patellar osteophyte formation. There is enthesopathic change within the quadriceps tendon and patellar tendon. IMPRESSION IMPRESSION: Degenerative changes of the knee and marked degenerative change of the patellofemoral joint. mia Jaciel COUCH DIAGNOSTIC IMAGI NG ORDERABLES documented in this encounter Visit Diagnoses Not on filedocumented in this encounter
--- OUTSIDE RECORDS SUMMARY | 2023-11-02 04:07 | XMS_ITS | Encounter Summary ---
Author Organization [facility] Address [address] [place] [address] Care Team Providers Care Boat Diesel Motor Mechanic Name Role Phone lOaf Sahni MD Primary Care Provider U navailable Reason for Visit * Reason Onset Date Comments Medications Refill 10/06/2010 Encounter Details Date Type Department Care Team (Late st Contact Info) Description 10/06/2010 Refill [facility] Rheumatology & Immunology [address] [phone] Jaciel Clancy MD Medications Refill Social History [...] skin once a week. 12 Syringe 5 10/08/2010 03/23/2011 documented in this encounter Plan of Treatment Upcoming Encounters Date Type Department Care Team (Late st Contact Info) Description 01/17/2024 9:00 EST Office Visit [facility] Rheumatology Immunology [address] [phone] Butch Blair, [employer] MILLWRIGHT [address] [facility], [address] [place] [phone] 07/26/2024 9:00 EDT Office Visit [facility] Rheumatology & Immunology - [facility] [address] [place] [address] Riri Seymour MD [address] [place] [address], [address] [place] [phone] documented as of this encounter Visit Diagnoses Diagnosis Ankylosing spondylitis ([facility])- Primary Ankylosing spondylitis documented in this encounter Discontinued Medications Medication Sig Discontinue Reason Start Date End Da te etanercept (ENBREL) 50 mg/mL (0.98 mL) injectionIndications:Anky losing spondylitis ([facility]) Inject 1 mL into the skin every 7 days. Reorder 09/14/2010 10/06/2010 documented as of this encounter Care Teams Boat Diesel Motor Mechanic Relationship Specialty Start Date End Date Olaf Sahni MD PCP - General 09/20/08 11/05/20 documented as of this encounter
--- OUTSIDE RECORDS SUMMARY | 2023-11-02 04:07 | XMS_ITS | Encounter Summary ---
Author Organization [facility] Address [address] [place] [address] Care Team Providers Care Requirements Engineer Name Role Phone Unavailable Primary Care Provider Unavailabl e Encounter Details Date Type Department Care Team (Late st Contact Info) Description 08/17/2005 10:31 EDT Hospital Encounter [address] [phone] Jaciel Clancy MD Social History Tobacco Use [...] [facility] Rheumatology & Immunology [address] [phone] Butch Blair NP [address] [place] [address], [facility] [address] [place] [phone] 07/26/2024 9:00 EDT Office Visit [facility] Rheumatology & Immunology [address] [address] Riri Seymour MD [address] [facility], [address] [place] [phone] documented as of this encounter Visit Diagnoses Not on filedocumented in this encounter
--- OUTSIDE RECORDS SUMMARY | 2023-11-02 04:07 | XMS_ITS | Encounter Summary ---
Author Organization [facility] Address [address] [place] [address] Care Team Providers Care Night Club Manager Name Role Phone Unavailable Primary Care Provider Unavailabl e Encounter Details Date Type Department Care Team (Late st Contact Info) Description 09/19/2007 9:17 EDT Hospital Encounter [address] [address] Jaciel Clancy MD Social History Tobacco Use [...] [facility] Rheumatology & Immunology [address] [phone] Butch Blair NP [address] [place] [address], [facility] [address] [place] [phone] 07/26/2024 9:00 EDT Office Visit [facility] Rheumatology & Immunology [address] [address] Riri Seymour MD 111 [facility], [address] [place] [phone] documented as of this encounter Visit Diagnoses Not on filedocumented in this encounter
--- OUTSIDE RECORDS SUMMARY | 2023-11-02 04:07 | XMS_ITS | Encounter Summary ---
Author Organization [facility] Address [address] [place] [address] Care Team Providers Care Net Making Supervisor Name Role Phone Olaf Sahni MD Primary Care Provider U lisandraailable Reason for Visit * Reason Comments Neck Pain Back Pain Encounter Details Date Type Department Care Team (Latest Contact Info) Description 09/18/2010 10:30 EDT Office Visit [facility] Rheumatology & Immunology - [address] [address] Jaciel Abrams MD Ankylosing spondylitis ([facility]) (Primary Dx) Social History Tobacco Use [...] Sign Reading Time Taken Comments Blood Pressure 116/74 09/18/2010 0948 EDT Pulse 78 09/18/2010 0948 EDT Temperature - - Respiratory Rate - - Oxygen Saturation - - Inhaled Oxygen Concentration - - Weight 66.7 kg (147 lb) 09/18/2010 0948 EDT Height 167.6 cm (5' 6) 09/18/2010 0948 EDT Body Mass Index 23.73 09/18/2010 0948 EDT documented in this encounter Progress Notes * Jaciel Abrams MD - 09/18/2010 1024 EDT Division of Rheumatology and Clinical Immunology Chief Complaint Patient presents with ??? Neck Pain ??? Back Pain HPI: Scheduled appointment at 6 months for ankylosing spondylitis. Remains on enbrel weekly. Since that visit had surgery on left foot on May 08. Had straightening of 1st toe and straightened others. Had 3 pins which have been removed. Has some aching but skin has healed and no drainage. Has had some GI upset and nausea in a.m. For last 3 weeks. Occasional regurgitates some gastric contents. On aciphex at this time. Having some loose, oily stools. Has a B12 deficiency and is receiving injections. Still on one indomethacin daily. Stiff in a.m for 2-4 hours. No infections. Helped a relative put in a foundation which aggravated his back. History of osteoporosis but bone mass improved significantly with the enbrel and improved inflammation and alendronate which he is now off. Current outpatient prescriptions Medication Sig Dispense Refill ??? etanercept (ENBREL) 50 mg/mL (0.98 mL) injection Inject 1 mL into the skin every 7 days. 8 Syringe 5 ??? indomethacin (INDOCIN) 25 mg [...] Surgical History Procedure Date ??? Foot surgery 1979 Replaced joint in big toe Family History Problem Relation Age of Onset ??? Cancer Mother throat ca ??? Cancer Father prostate ??? Heart Disease Father NE at 54 ??? Heart Disease Brother at [...] x Hair Loss x PHYSICAL EXAMINATION: Constitutional: not in acute distress BP 116/74 Pulse 78 Ht 167.6 cm (66) Wt 66.679 kg (147 lb) BMI 23.73 kg/m2 RESPIRATORY: clear / equal BS; no adventitious sounds bilaterally. Chest expansion 5 cm. MS: Very good ROM of neck and spine. No peripheral arthritis. Left foot still has some valgus of great toe and 4 th toe is red at end and nail is gone (this is toe that had ischemia after surgery). LABS: CBC and DMARD profile in March normal. Diagnosis / Assessment: Ankylosing spondylitis which continues to be stable and much improved on enbrel from baseline. 2. S/P bunion correction and smaller toe realignment with fair results. Still improving. 3. GI reflux and bowel changes. Given also B12 deficiency ? Some type of malabsorption. Recommendations/Evaluation: 1. Continue enbrel 50 mg weekly. 2. Indomethacin prn. 3. May need further evaluation of his GI issues. 4. No lab this visit. 5. Follow up in 6 months. JACIEL ABRAMS MD 09/18/2010 10:08 documented in this encounter Plan of Treatment Upcoming Encounters Date Type Department Care Team (Late st Contact Info) Description 01/17/2024 9:00 EST Office Visit [facility] Rheumatology & Immunology [address] [phone] Butch Blair NP [address] [place] [phone] 07/26/2024 9:00 EDT Office Visit [facility] Rhe[facility]ology & Immunology [address] [address] Riri Seymour MD [address] [place] [phone] documented as of this encounter Visit Diagnoses Diagnosis Ankylosing spondylitis ([facility])- Primary Ankylosing spondylitis documented in this encounter Care Teams Net Making Supervisor Relationship Specialty Start Date End Date Olaf Sahni MD PCP - General 09/20/08 11/05/20 documented as of this encounter
--- OUTSIDE RECORDS SUMMARY | 2023-11-02 04:07 | XMS_ITS | Encounter Summary ---
Author Organization [facility] Address [address] [place] [address] Care Team Providers Care Director Of Patient Safety Name Role Phone Unavailable Primary Care Provider Unavailabl e Encounter Details Date Type Department Care Team (Late st Contact Info) Description 03/23/2005 9:49 EST Hospital Encounter [address] [phone] Jaciel Clancy MD Social History Tobacco Use [...] Info) Description 01/17/2024 9:00 EST Office Visit [facility] Rheumatology & Immunology [address] [address] Butch Blair NP [address] [place] [address], [facility] [address] [place] [phone] 07/26/2024 9:00 EDT Office Visit [facility] Rheumatology & Immunology [address] [phone] Riri Seymour MD [address] [facility], Level [address] [place] [phone] documented as of this encounter Procedures Procedure Name Priority Date/Time Associated Diagnosis Comments SED RATE Routine 03/23/2005 11:16 EST COMPLETE BLOOD COUNT Routine 03/23/2005 11:16 EST documented in this encounter Results * SED. RATE:WESTERGREN (03/23/2005 11:16 EST) Sed. Rate Westergren 1 0 - 15 mm/hr [facility] 03/23/2005 11:1 6 EST 03/23/2005 11:24 EST Jaciel Clancy MD HEMATOLOGY & PF4 ORD ERABLES [facility] [address] [place] [address] * HEMAGRAM (03/23/2005 11:16 EST) WBC 5.73 4.0 - 10.4 K/cmm [facility] RBC 5.19 4.36 - 5.78 M/cmm [facility] Hemoglobin 16.3 13.8 - 17.3 gm/dl [facility] HCT 46.5 39.5 - 50.2 % [facility] MCV 90 81 - 95 fl [facility] MCH 31.3 27.6 - 33.0 pg [facility] MCHC 34.9 32.8 - 36.4 gm/dl [facility] PLT 202 141 - 320 K/cmm [facility] RDW-CV 13.5 11.8 - 14.1 % [facility] 03/23/2005 11:1 6 EST 03/23/2005 11:24 EST Jaciel Clancy MD HEMATOLOGY & PF4 ORD ERABLES [facility] [address] [place] [address] documented in this encounter Visit Diagnoses Not on filedocumented in this encounter
--- OUTSIDE RECORDS SUMMARY | 2023-11-02 04:07 | XMS_ITS | Encounter Summary ---
Author Organization [facility] Address [address] [place] [address] Care Team Providers Care Biostatistics Manager Name Role Phone Olaf Sahni MD Primary Care Provider Gustavo fryaildino Reason for Visit * Reason Onset Date Comments Other 04/03/2010 IS WAITING TO HE AR ABOUT WHEN HE HAS BEEN SET UP FOR FOOT SURGERY AND WOULD LIKE TO HAVE IT DONE WHERE HE LIVES IN [facility] Encounter Details Date Type Department Care Team (Late st Contact Info) Description 04/03/2010 Telephone [facility] Rheumatology & Immunology - [facility] [address] [place] [address] Jaciel Clancy MD Other (IS WAITING TO HEAR ABOUT WHEN HE HAS BEEN SET UP FOR FOOT SURGERY AND WOULD LIKE TO HAVE IT DONE WHERE HE LIVES IN [facility]) Social History Tobacco Use Types Packs/Day [...] encounter Miscellaneous Notes * Telephone Encounter - Heather Miller RN - 04/03/2010 1626 EST Left message for pt regarding message from Dr. Clancy and to call back if he would like us to do the referral. * Telephone Encounter - Jaciel Clancy MD - 04/03/2010 0926 EST The conversation as I remember was that if he decided to have surgery, he was to call and we could help with appointment. My thought had been that we would refer to orthopedics at [facility]. I don't know the surgeons in [facility] or podiatrists there so he would need to talk to Dr Sahni if he wants surgery done there. If he wants to be evaluated here, refer to ortho foot. Ankylosing spondylitis. Si gnificant MTP subluxation Left foot. * Telephone Encounter - Vi Hamilton RN - 04/03/2010 0900 EST Are we setting this pt up for some type of foot surgery? documented in this encounter Plan of Treatment Upcoming Encounters Date Type Department Care Team (Late st Contact Info) Description 01/17/2024 9:00 EST Office Visit [facility] Rheumatology & Immunology [address] [phone] Butch Blair NP [address] [place] [phone] 07/26/2024 9:00 EDT Office Visit [facility] Rheumatology & Immunology [address] [phone] Riri Seymour MD [address] [place] [phone] documented as of this encounter Visit Diagnoses Not on filedocumented in this encounter Care Teams Biostatistics Manager Relationship Specialty Start Date End Date Olaf Sahni MD PCP - General 09/20/08 11/05/20 documented as of this encounter
--- OUTSIDE RECORDS SUMMARY | 2023-11-02 04:07 | XMS_ITS | Encounter Summary ---
Author Organization [facility] Address [address] [place] [address] Care Team Providers Care Air Brush Artist Name Role Phone Olaf Sahni MD Primary Care Provider U navailable Reason for Visit * Reason Onset Date Comments Medications Refill 01/14/2011 Encounter Details Date Type Department Care Team (Late st Contact Info) Description 01/14/2011 Refill [facility] Rheumatology & Immunology [address] [phone] Jaciel Clancy MD Medications Refill Social History [...] Cap by mouth daily. 30 Cap 5 01/14/2011 03/23/2011 documented in this encounter Plan of Treatment Upcoming Encounters Date Type Department Care Team (Late st Contact Info) Description 01/17/2024 9:00 EST Office Visit [facility] Rheumatology & Immunology [address] [phone] Butch Blair NP 111 [facility] [address] [place] [phone] 07/26/2024 9:00 EDT Office Visit [facility] Rheumatology & Immunology - [facility] [address] [place], [place] [address] Riri Seymour MD 111 [facility], [address] [place] [phone] documented as of this encounter Visit Diagnoses Diagnosis Ankylosing spondylitis (HCC-CMS)- Primary Ankylosing spondylitis documented in this encounter Discontinued Medications Medication Sig Discontinue Reason Start Date End Da te indomethacin (INDOCIN) 25 mg capsuleIndications:Ankylo sing spondylitis (HCC-CMS) Take 1 Cap by mouth daily. Reorder 08/10/2010 01/14/2011 documented as of this encounter Care Teams Air Brush Artist Relationship Specialty Start Date End Date Olaf Sahni MD PCP - General 09/20/08 11/05/20 documented as of this encounter
--- OUTSIDE RECORDS SUMMARY | 2023-11-02 04:08 | XMS_ITS | Encounter Summary ---
Author Organization [facility] Address [address] [place] [address] Care Team Providers Care Sales And Customer Relations Rep Name Role Phone Unavailable Primary Care Provider Unavailabl e Encounter Details Date Type Department Care Team (Latest Contact Info) Description 08/31/1999 12:31 EDT Hospital Encounter [facility] - Other [address] [place] [phone] Jaciel Clancy MD Unknown, ProviderMD Discharge Disposition: [...] Description 01/17/2024 9:00 EST Office Visit [facility] Rheumatology & Immunology [address] [phone] Butch Blair NP [address] [place] [phone] 07/26/2024 9:00 EDT Office Visit [facility] Rheumatology & Immunology [address] [phone] Riri Seymour MD [address] [place] [phone] documented as of this encounter Procedures Procedure Name Priority Date/Time Associated Diagnosis Comments HEMAGRAM & DIFF Routine 08/31/1999 11:21 EDT DMARD PROFILE Routine 08/31/1999 11:21 EDT documented in this encounter Results * (ABNORMAL) DMARD PROFILE (08/31/1999 11:21 EDT) Total Alkaline Phosphatase 156(H) 38 - 126 U/L [facility] AST 16 8 - 50 U/L [facility] ALT 17 15 - 75 U/L [facility] Albumin 3.7 3.0 - 5.5 g/dl [facility] Creatinine 1.0 0.7 - 1.5 mg/dl [facility] 08/31/1999 11:2 1 EDT 08/31/1999 11:23 EDT Jaciel Clancy MD CHEMISTRY & BLOOD GA S ORDERABLES [facility] [address] [place] [address] * (ABNORMAL) HEMAGRAM & DIFF (08/31/1999 11:21 EDT) WBC 8.34 4.0 - 10.4 K/cmm [facility] RBC 4.02(L) 4.36 - 5.78 M/cmm [facility] Hemoglobin 10.5(L) 13.8 - 17.3 gm/dl [facility] HCT 32.0(L) 39.5 - 50.2 % [facility] MCV 80(L) 81 - 95 fl [facility] MCH 26.1(L) 27.6 - 33.0 pg [facility] MCHC 32.8 32.8 - 36.4 gm/dl [facility] PLT 385(H) 141 - 320 K/cmm [facility] RDW-CV 19.4(H) 11.8 - 14.1 % [facility] % Neutrophils 84.3(H) 45.5 - 79.7 % [facility] % Lymphocytes 10.5(L) 15.0 - 46.8 % [facility] % Monocytes 4.2 1.8 - 12.0 % [facility] % Eosinophils 0.6 0.6 - 6.9 % [facility] % Basophils 0.4 0.2 - 1.4 % [facility] ABS Neutrophils 7.04 2.20 - 8.85 K/cmm [facility] ABS Lymphs 0.87(L) 1.09 - 3.30 K/cmm [facility] ABS Monocytes 0.35 0.1 - 0.8 K/cmm [facility] ABS Eosinophils 0.05 0.03 - 0.61 K/cmm [facility] ABS Basophils 0.03 0.01 - 0.11 K/cmm [facility] Type of Diff: Automated [facility] 08/31/1999 11:2 1 EDT 08/31/1999 11:23 EDT Jaciel Clancy MD HISTORICAL LAB FOR S Q LOAD [facility] [address] [place] [address] documented in this encounter Visit Diagnoses Not on filedocumented in this encounter
--- OUTSIDE RECORDS SUMMARY | 2023-11-02 04:08 | XMS_ITS | Encounter Summary ---
Author Organization [facility] Address [address] [place] [address] Care Team Providers Care Lighting Technician Name Role Phone Unavailable Primary Care Provider Unavailabl e Encounter Details Date Type Department Care Team (Latest Contact Info) Description 04/28/1999 9:59 EST - 04/28/1999 11:59 EST Hospital Encounter [facility] - Other [address] [place] [phone] Jaciel Clancy MD Unknown, ProviderMD Discharge Disposition: [...] 01/17/2024 9:00 EST Office Visit [facility] Rheumatology & Immunology [address] [phone] Butch Blair NP [address] [place] [phone] 07/26/2024 9:00 EDT Office Visit [facility] Rheumatology & Immunology [address] [phone] Riri Seymour MD [address] [place] [phone] documented as of this encounter Procedures Procedure Name Priority Date/Time Associated Diagnosis Comments HEMAGRAM & DIFF Routine 04/28/1999 12:13 EST DMARD PROFILE Routine 04/28/1999 12:13 EST SED RATE Routine 04/28/1999 12:13 EST C REACTIVE PROTEIN Routine 04/28/1999 12 :13 EST documented in this encounter Results * (ABNORMAL) SED. RATE:WESTERGREN (04/28/1999 12:13 EST) Sed. Rate Westergren >100(H) 0 - 15 mm/hr [facility] 04/28/1999 12:1 3 EST 04/28/1999 12:15 EST Jaciel Clancy MD HEMATOLOGY & PF4 ORD ERABLES Performing Organization Address [facility] Co de Phone Number [facility] [address] [place] [address] * DMARD PROFILE (04/28/1999 12:13 EST) Total Alkaline Phosphatase 118 38 - 126 U/L [facility] AST 16 8 - 50 U/L [facility] ALT 16 15 - 75 U/L [facility] Albumin 3.7 3.0 - 5.5 g/dl [facility] Creatinine 0.9 0.7 - 1.5 mg/dl [facility] 04/28/1999 12:1 3 EST 04/28/1999 12:15 EST Jaciel Clancy MD CHEMISTRY & BLOOD GA S ORDERABLES Performing Organization Address [facility] Co de Phone Number [facility] [address] [place] [address] * (ABNORMAL) C-REACTIVE PROTEIN (04/28/1999 12:13 EST) C-Reactive Protein 7.3(H) <1.0 mg/dl [facility] 04/28/1999 12:1 3 EST 04/28/1999 12:15 EST Jaciel Clancy MD CHEMISTRY & BLOOD GA S ORDERABLES [facility] [address] [place] [address] * (ABNORMAL) HEMAGRAM & DIFF (04/28/1999 12:13 EST) Pathologist [facility] WBC 7.58 4.0 - 10.4 K/cmm [facility] RBC 3.82(L) 4.36 - 5.78 M/cmm [facility] Hemoglobin 10.1(L) 13.8 - 17.3 gm/dl [facility] HCT 31.0(L) 39.5 - 50.2 % [facility] MCV 81 81 - 95 fl [facility] MCH 26.4(L) 27.6 - 33.0 pg [facility] MCHC 32.5(L) 32.8 - 36.4 gm/dl [facility] PLT 418(H) 141 - 320 K/cmm [facility] RDW-CV 17.6(H) 11.8 - 14.1 % [facility] % Neutrophils 85.4(H) 45.5 - 79.7 % [facility] % Lymphocytes 10.9(L) 15.0 - 46.8 % [facility] % Monocytes 3.0 1.8 - 12.0 % [facility] % Eosinophils 0.4(L) 0.6 - 6.9 % [facility] % Basophils 0.3 0.2 - 1.4 % [facility] ABS Neutrophils 6.47 2.20 - 8.85 K/cmm [facility] ABS Lymphs 0.83(L) 1.09 - 3.30 K/cmm [facility] ABS Monocytes 0.23 0.1 - 0.8 K/cmm [facility] ABS Eosinophils 0.03 0.03 - 0.61 K/cmm [facility] Basophils 0.02 0.01 - 0.11 K/cmm [facility] Type of Diff: Automated [facility] 04/28/1999 12:1 3 EST 04/28/1999 12:15 EST Jaciel Clancy MD HISTORICAL LAB FOR S Q LOAD [facility] [address] [place] [address] documented in this encounter Visit Diagnoses Not on filedocumented in this encounter
[2023-11-02 16:01] LABS: ALT 94 U/L (16-63); AST 53 U/L (15-37); Albumin 4.3 g/dL (3.4-5.0); Alkaline Phosphatase 118 U/L (46-116); Bilirubin, Direct 0.1 mg/dL (0.0-0.2); Bilirubin, Total 0.52 mg/dL (0.2-1.0); Total Protein 7.5 g/dL (6.4-8.2)
[2023-11-04 09:35] LABS: HBs Antibody, Qual Negative (See Note); HBs Antibody, Quant <3.1 mIU/mL (See Note); Hepatitis B Core Antibody Negative (Negative); Hepatitis B surface Ag Negative (Negative); Hepatitis C Ab w Rflx HCV PCR Negative (Negative)
== END 2023-11-02 03:53 | disposition home or self-care (01) ==
PROVIDERS: PCP Nurse Practitioner; Visit Provider Nurse Practitioner
DX: R79.89 Other specified abnormal findings of blood chemistry (principal)
CPT/HCPCS: 36415; 80076; 86704; 86706; 86803; 87340

== ENCOUNTER 2023-11-14 01:21 | Outpatient (CLI) | payer MEDICARE, MEDICAID, SELFPAY ==
--- NOTE | 2023-11-14 06:45 | DI.US_ITS ---
Exam(s) US ABDOMEN EXAM: US ABDOMEN CLINICAL HISTORY: elevated lft,r79.89 TECHNIQUE: Ultrasound abdomen performed using standard protocol. COMPARISON: No exams were available for comparison FINDINGS: LIVER: Normal size increased liver echogenicity and decreased through transmission consistent moderat e hepatic steatosis. No focal liver lesions are seen. GALLBLADDER: No evidence of cholelithiasis. No evidence of wall thickening. No pericholecystic fluid identified. NIELSEN'S SIGN: Negative. BILIARY SYSTEM: No intrahepatic or extrahepatic biliary ductal dilation. KIDNEYS: Kidneys are symmetric in size. No evidence of renal calculi. No evidence of hydronephrosis. 2.9 centimeters cyst upper pole left kidney. PANCREAS: Normal where visualized. SPLEEN: Not enlarged. ABDOMINAL AORTA AND IVC: Visualized portions normal caliber. ASCITES: None seen. IMPRESSION: Moderate hepatic steatosis. DATA REPOSITORY:
== END 2023-11-14 01:41 ==
LOC: DI 01:21
PROVIDERS: PCP Nurse Practitioner; Visit Provider Nurse Practitioner
DX: R79.89 Other specified abnormal findings of blood chemistry (principal); K76.0 Fatty (change of) liver, not elsewhere classified
CPT/HCPCS: 76700

== ENCOUNTER 2023-11-16 11:01 | Outpatient (CLI) | payer MEDICARE, SELFPAY ==
[2023-11-16 11:50] LABS: ALT 96 U/L (16-63); AST 47 U/L (15-37); Albumin 4.5 g/dL (3.4-5.0); Alkaline Phosphatase 120 U/L (46-116); Bilirubin, Direct 0.1 mg/dL (0.0-0.2); Bilirubin, Total 0.76 mg/dL (0.2-1.0); Ferritin 661 ng/mL (26-388)
== END 2023-11-16 11:02 | disposition home or self-care (01) ==
LOC: LBO 11:04
PROVIDERS: PCP Nurse Practitioner; Visit Provider Nurse Practitioner
DX: K76.0 Fatty (change of) liver, not elsewhere classified (principal); R79.89 Other specified abnormal findings of blood chemistry
CPT/HCPCS: 36415; 80076; 82728

== ENCOUNTER 2023-12-02 11:19 | Outpatient (CLI) | payer MEDICARE, SELFPAY ==
--- OUTSIDE RECORDS SUMMARY | 2023-12-02 11:21 | XMS_ITS | Encounter Summary ---
Author Organization [facility] Address [facility] [place] [address] Care Team Providers Care Contract Post Office Clerk Name Role Phone Maureen Lua APRN Primary Care Provider [phone] Encounter Details Date Type Department Care Team [...] place to sleep or slept in a fpc (including now)? No 11/26/2021 Sex and Gender Information Value Date Recorded Sex Assigned at Not on file Gender Identity Not on file Sexual Orientation Not on file documented as of this encounter Plan of Treatment Not on file documented as of this encounter Visit Diagnoses Not on filedocumented in this encounter Care Teams Contract Post Office Clerk Relationship Specialty Start Date End Date Maureen Lua APRN [address] [place] [address] PCP - General Internal Medicine 08/18/18 documented as of this encounter
--- OUTSIDE RECORDS SUMMARY | 2023-12-02 11:21 | XMS_ITS | Clinical Summary ---
Author Organization [facility] Address [facility] [place] [address] Care Team Providers Care Meat Stocker Name Role Phone Maureen Lua APRN Primary Care Provider [phone] Allergies No known active allergies Medications Medication [...] HIV screen 10/30/1979 Hepatitis C Screening 10/30/1979 Tetanus/Diphtheria/Pertussis Vaccines (1 - Tdap) 10/29 Zoster vaccine (1 of 2) 10/30/2011 Advance Directive 2016 Covid-19 Vaccine (1 - season) 2023 Influenza (Flu) vaccine (1 o f 1 - Influenza standard series) 11/06/2023 Care Teams Meat Stocker Relationship Specialty Start Date End Date Maureen Lua APRN [address] [place], [place] [phone] PCP - General Internal Medicine 08/18/18
--- OUTSIDE RECORDS SUMMARY | 2023-12-02 11:22 | XMS_ITS | Encounter Summary ---
[place] [address] Care Team Providers Care Icing And Glaze Maker Name Role Phone Maureen Lua APRN Primary Care Provider [phone] Encounter Details Date Type Department Care Team (Late st Contact Info) Description 01/04/2019 Specialty [place] [phone] Alessandro Mccormick Social History Tobacco Use Types [...] Patient requested that prescription be sent to [facility] once approved. Patient was educated on the [...] on filedocumented in this encounter Care Teams Icing And Glaze Maker Relationship Specialty Start Date End Date Maureen Lua APRN [address] [place] [address] PCP - General Internal Medicine 08/18/18 documented as of this encounter
--- OUTSIDE RECORDS SUMMARY | 2023-12-02 11:22 | XMS_ITS | Encounter Summary ---
Author [place] [address] Care Team Providers Care Information Resources Director Name Role Phone Maureen Lua APRN Primary Care Provider [phone] Reason for Referral * Diagnostic Test (Routine) - Closed Specialty Diagnoses / Procedures Referred By Contac t Referred To Contact Diagnoses Neck pain Ankylosing spondylitis, unspecified site of spine Procedures MRI Cervical Spine wo Contrast (Generic) Ney Hickman MD [facility] [place] [address] Referral ID Status Reason Start Date Expiration Date V isits Requested Visits Authorized [id number] Closed Specialty Service Requested 01/05/2019 07/04/2019 1 1 Reason for Visit * Diagnostic Test (Routine) - Closed Specialty Diagnoses / Procedures Referred By Contac t Referred To Contact Diagnoses Neck pain Ankylosing spondylitis, unspecified site of spine Procedures MRI Cervical Spine wo Contrast (Generic) Ney Hickman MD [facility] [address] Referral ID Status Reason Start Date Expiration Date V isits Requested Visits Authorized [id number] Closed Specialty Service Requested 01/05/2019 07/04/2019 1 1 Encounter Details Date Type Department Care Team (Latest Contact Info) Description 05/17/2019 9:25 AM EDT - 05/17/2019 11:59 PM EDT Hospital [place] [address] Ney Hickman MD [facility] [place] [address] Neck pain; Ankylosing spondylitis, unspecified site of [...] report, please contact the number below. ? Electronically signed by: Jimmie Velazquez [facility] ([phone]), at 05/17/2019 11:21 AM Narrative 05/17/2019 11:21 AM EDT EXAMINATION: MRI [...] number below. Electronically signed by: CHRISTY Brambila [facility]([phone]), at 05/17/2019 11:21 AM Ney Hickman MD IMG MRI ORDERABLES documented in this encounter Visit Diagnoses Diagnosis Neck pain Cervicalgia Ankylosing spondylitis, unspecified site of spine documented in this encounter Care Teams Information Resources Director Relationship Specialty Start Date End Date Maureen Lua APRN [address] [place] [address] PCP - General Internal Medicine 08/18/18 documented as of this encounter
--- OUTSIDE RECORDS SUMMARY | 2023-12-02 11:22 | XMS_ITS | Encounter Summary ---
[place] [address] Care Team Providers Care Melting Furnace Skimmer Name Role Phone Maureen Lua APRN Primary Care Provider [phone] Reason for Visit * Reason Onset Date Comments Prior Authorization 01/25/2019 Enbrel Surec lick Encounter Details Date Type Department Care Team (Late st Contact Info) Description 01/25/2019 [place] [address] Melvin Jean CPHT Prior Authorization (Enbrel Sureclick) [...] May Fill With [facility] CASE/REFERENCE # [id number] APPROVAL NOTIFICATION RECEIVED VIA: Fax COPAY: $8.50 COPAY ASSISTANCE NEEDED?: No NOTES: * Telephone Encounter - Melvin Jean CPHT - 01/25/2019 3:13 PM EST [facility], Medication Prior Authorization Patient: Erasto Chapman Patient : 1960 Patient Address: [facility] [address] [facility] [address] (home) Medication: Enbrel Sureclick Subscriber Insurance: [employer] ([employer]) Fax: Physician: Ney Hickman Sent Via: [facility] Bryant: [id number] Ref/Case/PA#: Medication Strength Frequency Requested: Enbrel Sureclick 50 mg/ml SOAJ Inject 50 mg (1 Pen) Subcutaneously Once A Week Qty/Day Supply: 07/02 New Start: Yes Diagnosis & ICD-10 Code: Ankylosing Spondylitis M45.9 documented in this encounter Plan of Treatment Not on file documented as of this encounter Visit Diagnoses Not on filedocumented in this encounter Care Teams Melting Furnace Skimmer Relationship Specialty Start Date End Date Maureen Lua, AMMY [address] [place] [address] PCP - General Internal Medicine 08/18/18 documented as of this encounter
--- OUTSIDE RECORDS SUMMARY | 2023-12-02 11:22 | XMS_ITS | Encounter Summary ---
[place] [address] Care Team Providers Care Contracts Law Professor Name Role Phone Maureen Lua APRN Primary Care Provider [phone] Reason for Referral * Diagnostic Test (Routine) - Closed Specialty Diagnoses / Procedures Referred By Contac t Referred To Contact Radiology Diagnoses Elevated ferritin Procedures MRI Additional Views - Body Jay García MD [facility] [place] [address] [place] [address] Referral ID Status Reason Start Date Expiration Date V isits Requested Visits Authorized [id number] Closed Specialty Service Requested 01/04/2022 07/05/2023 1 1 Reason for Visit * Diagnostic Test (Routine) - Closed Specialty Diagnoses / Procedures Referred By Contac t Referred To Contact Radiology Diagnoses Elevated ferritin Procedures MRI Additional Views - Body Jay García MD [facility] [place] [address] [place] [address] Referral ID Status Reason Start Date Expiration Date V isits Requested Visits Authorized [id number] Closed Specialty Service Requested 01/04/2022 07/05/2023 1 1 Encounter Details Date Type Department Care Team (Latest Contact Info) Description 01/15/2022 12:26 PM EST - 01/15/2022 11:59 PM EST Hospital Encounter MRI at [facility] [place] [id number] Jay García MD [facility] [address] Elevated ferritin Discharge Disposition: Home Social History [...] place to sleep or slept in a group home (including now)? No 11/26/2021 Sex and [...] who have questions please contact the health hearing care practitioner that requested your imaging first. ? Electronically signed by: Jay García MD, [facility] ([phone]), at 01/15/2022 5:09 PM Narrative 01/15/2022 5:09 [...] patients who have questions please contactthe health hearing care practitioner that requested your imaging first. Jay García MD IMG MRI ORDERABLES documented in this encounter Visit Diagnoses Diagnosis Elevated ferritin Other abnormal blood chemistry documented in this encounter Care Teams Contracts Law Professor Relationship Specialty Start Date End Date Maureen Lua APRN [address] [place] [address] PCP - General Internal Medicine 08/18/18 documented as of this encounter
--- OUTSIDE RECORDS SUMMARY | 2023-12-02 11:22 | XMS_ITS | Encounter Summary ---
Author Organization [facility] [place] [address] Care Team Providers Care Electric Truck Crane Operator Name Role Phone Maureen Lua APRN Primary Care Provider [phone] Encounter Details Date Type Department Care Team (Late st Contact Info) Description 04/07/2020 [place] [address] Ney Hickman MD [facility] [place] [address] Social History Tobacco Use Types Packs/Day Years [...] on filedocumented in this encounter Care Teams Electric Truck Crane Operator Relationship Specialty Start Date End Date Maureen Lua APRN [address] [place] [address] PCP - General Internal Medicine 08/18/18 documented as of this encounter
--- OUTSIDE RECORDS SUMMARY | 2023-12-02 11:22 | XMS_ITS | Encounter Summary ---
Author Organization [facility] Address [facility] [place] [address] Care Team Providers Care Cigarette Lighter Repairer Name Role Phone Maureen Lua APRN Primary Care Provider [phone] Encounter Details Date Type Department Care Team [...] on filedocumented in this encounter Care Teams Cigarette Lighter Repairer Relationship Specialty Start Date End Date Maureen Lua APRN [address] [place] [address] PCP - General Internal Medicine 08/18/18 documented as of this encounter
--- OUTSIDE RECORDS SUMMARY | 2023-12-02 11:22 | XMS_ITS | Encounter Summary ---
[place] [address] Care Team Providers Care Healthcare Science Specialist Name Role Phone Maureen Lua APRN Primary Care Provider [phone] Reason for Visit * Reason Onset Date Comments Medication Refill 03/12/2019 Medication Refill 03/19/2019 Encounter Details Date Type Department Care Team (Late st Contact Info) Description 03/12/2019 [place] [phone] Deni Duran, RN High risk medication use; [...] with patient. Labs may be done at [facility]. Patient advised if would like to continue with indomethacin, to obtain from pcp. Discussed celebrex with patient and patient is amenable to trial of celebrex. Standing lab orders faxed to [facility]. documented in this encounter Plan of Treatment Not on file documented as of this encounter Visit Diagnoses Diagnosis High risk medication use Encounter for long-term (current) use of other medications Inflammatory arthropathy Arthropathy, unspecified, site unspecified Morning joint stiffness Stiffness of joint, not elsewhere classified, unspecified site documented in this encounter Care Teams Healthcare Science Specialist Relationship Specialty Start Date End Date Maureen Lua APRN [address] [place] [address] PCP - General Internal Medicine 08/18/18 documented as of this encounter
--- OUTSIDE RECORDS SUMMARY | 2023-12-02 11:22 | XMS_ITS | Encounter Summary ---
Author Organization [facility] [place] [address] Care Team Providers Care Cash Applications Specialist Name Role Phone Maureen Lua APRN Primary Care Provider [phone] Encounter Details Date Type Department Care Team (Late st Contact Info) Description 01/25/2019 Refill [place] [address] Ney Hickman MD [facility] [place] [address] Social History Tobacco Use Types Packs/Day Years [...] on filedocumented in this encounter Care Teams Cash Applications Specialist Relationship Specialty Start Date End Date Maureen Lua APRN [address] [place] [address] PCP - General Internal Medicine 08/18/18 documented as of this encounter
--- OUTSIDE RECORDS SUMMARY | 2023-12-02 11:22 | XMS_ITS | Encounter Summary ---
[place] [address] Care Team Providers Care Gate Agent Name Role Phone Maureen Lua APRN Primary Care Provider [phone] Reason for Visit * Reason Onset Date Comments Follow-up 11/17/2018 Encounter Details Date Type Department Care Team (Late st Contact Info) Description 11/17/2018 Telephone [place] [phone] Dariel Muhammad, RN Follow-up Social History Tobacco [...] Spine that issupposed to be done at [facility]. RTC and left message advising that I have forwarded PA request to appropriate personel and that I have forwarded MRI request to the Secretaries. Advised her to call back with any questions or concerns. documented in this encounter Plan of Treatment Not on file documented as of this encounter Visit Diagnoses Not on filedocumented in this encounter Care Teams Gate Agent Relationship Specialty Start Date End Date Maureen Lua APRN [address] [place] [address] PCP - General Internal Medicine 08/18/18 documented as of this encounter
--- OUTSIDE RECORDS SUMMARY | 2023-12-02 11:22 | XMS_ITS | Encounter Summary ---
Author Organization [facility] [place] [address] Care Team Providers Care Flying Squad Salesperson Name Role Phone Maureen Lua APRN Primary Care Provider [phone] Encounter Details Date Type Department Care Team (Latest Contact Info) Description 11/01/2018 9:30 AM EDT Office Visit Rheumatology at [facility] [place] [address] Ney Hickman MD [facility] [address] High risk medication use; Inflammatory arthropathy; Morning [...] pain takes a daily also is on [place].. He has stomach issues with NSAIDs takes his Dexilant after meals does not use NSAIDs with food. I have reviewed the provided records, pertinent records available at the time of the [facility] appointment with in the medical record and [...] file Gets together: Not on file Attends voodoo service: Not on file Active member of [...] tried before without benefit. He feels his [place] helps him which is managed by his [...] site documented in this encounter Care Teams Flying Squad Salesperson Relationship Specialty Start Date End Date Maureen Lua, MAINTENANCE TRAINER [address] [place] [address] PCP - General Internal Medicine 08/18/18 documented as of this encounter
--- OUTSIDE RECORDS SUMMARY | 2023-12-02 11:22 | XMS_ITS | Encounter Summary ---
[place] [address] Care Team Providers Care Materials Engineer Name Role Phone Maureen Lua APRN Primary Care Provider [phone] Reason for Visit * Reason Comments Specialty Refill Management Enbrel Encounter Details Date Type Department Care Team (Late st Contact Info) Description 08/20/2020 Specialty [place] [phone] Sandra Linder, [facility] Social History Tobacco Use Types Packs/Day Years [...] Known Allergies Medication Reconciliation Discrepancies (compared to [facility] med list) No Specialty Pharmacy Refill [...] on filedocumented in this encounter Care Teams Materials Engineer Relationship Specialty Start Date End Date Maureen Lua APRN [address] [place] [address] PCP - General Internal Medicine 08/18/18 documented as of this encounter
--- OUTSIDE RECORDS SUMMARY | 2023-12-02 11:22 | XMS_ITS | Encounter Summary ---
Author Organization [facility] [place] [address] Care Team Providers Care Cartridge Gauger Name Role Phone Maureen Lua APRN Primary Care Provider [phone] Encounter Details Date Type Department Care Team (Late st Contact Info) Description 12/20/2018 6:05 PM EDT Ancillary Procedure Radiology Library at [facility] [place] [id number] Ney Hickman MD [facility] [id number] Social History Tobacco Use Types Packs/Day Years [...] DX Hand (12/20/2018 5:53 PM EDT) Narrative [facility] - 12/20/2018 5:53 PM EDT This exam is auto-finalizing. It's purpose is for storage only. Ney Hickman MD IMG FILM LIBRARY ORD ERABLES [place], [place] documented in this encounter Visit Diagnoses Not on filedocumented in this encounter Care Teams Cartridge Gauger Relationship Specialty Start Date End Date Maureen Lua, CASH APPLICATIONS REPRESENTATIVE [address] [place] [address] PCP - General Internal Medicine 08/18/18 documented as of this encounter
--- OUTSIDE RECORDS SUMMARY | 2023-12-02 11:22 | XMS_ITS | Encounter Summary ---
Author Organization [facility] Address [facility] [place] [address] Care Team Providers Care Photonics Engineering Technician Name Role Phone Maureen Lua APRN Primary Care Provider [phone] Encounter Details Date Type Department Care Team (Latest Contact Info) Description 09/04/2019 11:00 AM EDT TH Visit (TeleHealth) [place] [address] Ney Hickman MD [facility] [place] [address] Medication monitoring encounter; High risk medication use; [...] pain takes a daily also is on [place].. He has stomach issues with NSAIDs takes his Dexilant after meals does not use NSAIDs with food. I have reviewed the provided records, pertinent records available at the time of the [facility] appointment with in the [...] file Gets together: Not on file Attends caodaism service: Not on file Active member of [...] Cervicalgia documented in this encounter Care Teams Photonics Engineering Technician Relationship Specialty Start Date End Date Maureen Lua APRN [address] [place] [address] PCP - General Internal Medicine 08/18/18 documented as of this encounter
--- OUTSIDE RECORDS SUMMARY | 2023-12-02 11:22 | XMS_ITS | Encounter Summary ---
[place] [address] Care Team Providers Care Wetlands Technician Name Role Phone Maureen Lua APRN Primary Care Provider [phone] Reason for Visit * Reason Onset Date Comments Questions 12/06/2018 Prior Authorization 12/06/2018 Encounter Details Date Type Department Care Team (Late st Contact Info) Description 12/06/2018 [place] [address] Vivian Landaverde RN Questions; Prior Authorization Social [...] his MRI orders to be faxed to [facility]. I have asked Phuong to assist me with this need, and she has agreed. She also asks for a status update on Erasto's Indomethacin PA. I will ask Kayce for an update and call Juanis back when I receive a response. I left Juanis a return voicemail letting her know we would send the MRI orders out today for Erasto to [facility] and apologized about the delay (patient previously [...] on filedocumented in this encounter Care Teams Wetlands Technician Relationship Specialty Start Date End Date Maureen Lua, BUTTERMAKER CONTINUOUS CHURN [address] [place] [address] PCP - General Internal Medicine 08/18/18 documented as of this encounter
--- OUTSIDE RECORDS SUMMARY | 2023-12-02 11:22 | XMS_ITS | Encounter Summary ---
[place] [address] Care Team Providers Care Principal Cyber Engineer Name Role Phone Maureen Lua APRN Primary Care Provider Reason for Visit * Reason Onset Date Comments Questions 01/25/2019 Medication Refill 01/25/2019 Encounter Details Date Type Department Care Team (Late st Contact Info) Description 01/25/2019 [place] [address] Deni Duran RN Social History Tobacco Use [...] calls again to request prescription go to [facility]. * Telephone Encounter - Deni Duran RN [...] on filedocumented in this encounter Care Teams Principal Cyber Engineer Relationship Specialty Start Date End Date Maureen Lua APRN [address] [place] [address] PCP - General Internal Medicine 08/18/18 documented as of this encounter
--- OUTSIDE RECORDS SUMMARY | 2023-12-02 11:22 | XMS_ITS | Encounter Summary ---
[place] [address] Care Team Providers Care Cemetery Worker Name Role Phone Maureen Lua APRN Primary Care Provider [phone] Reason for Visit * Reason Comments Patient Education Medication Management Encounter Details Date Type Department Care Team (Late st Contact Info) Description 10/20/2020 Specialty [place] [address] Kan Santacruz [facility] Social History Tobacco Use Types Packs/Day [...] this encounter Progress Notes * Kan Santacruz [facility] - 10/20/2020 2:53 PM EDT Clinical Management Plan: Refill Specialty Pharmacy Consultation; Kan Santacruz [facility] Comprehensive Medication Management (CMM) Erasto Akers Ari [...] Known Allergies Medication Reconciliation Discrepancies (compared to [facility] med list) No Specialty Pharmacy Refill Questionnaire [...] on filedocumented in this encounter Care Teams Cemetery Worker Relationship Specialty Start Date End Date Maureen Lua APRN [address] [place] [address] PCP - General Internal Medicine 08/18/18 documented as of this encounter
--- OUTSIDE RECORDS SUMMARY | 2023-12-02 11:22 | XMS_ITS | Encounter Summary ---
[place] [address] Care Team Providers Care Security And Compliance Project Manager Name Role Phone Maureen Lua APRN Primary Care Provider [phone] Reason for Visit * Reason Comments Specialty Refill Management Encounter Details Date Type Department Care Team (Late st Contact Info) Description 09/16/2020 Specialty [place] [phone] Adelita Amador [place] Social History Tobacco Use [...] beneficiary Provider: plan sponsor pharmacist Visit Type: [facility] Follow-up Method of Contact: by telephone Cognitive Ability: good Cognitive Impairment Status Verified this Year: no Allergies and Drug intolerance: No Known Allergies Medication Reconciliation Discrepancies (compared to [facility] med list) -Is now on Lyrica 50mg [...] appointment and that [facility] is providing recommendations (summary located at top of note) for provider review and follow up. Adelita Amador RPH 09/16/20 12:36 PM documented in this encounter Plan of Treatment Not on file documented as of this encounter Visit Diagnoses Not on filedocumented in this encounter Care Teams Security And Compliance Project Manager Relationship Specialty Start Date End Date Maureen Lua APRN [address] [place] [address] PCP - General Internal Medicine 08/18/18 documented as of this encounter
--- OUTSIDE RECORDS SUMMARY | 2023-12-02 11:22 | XMS_ITS | Encounter Summary ---
[place] [address] Care Team Providers Care Drafter Seismograph Name Role Phone Maureen Lua APRN Primary Care Provider [phone] Reason for Referral * Diagnostic Test (Routine) - Closed Specialty Diagnoses / Procedures Referred By Contac t Referred To Contact Radiology Diagnoses Elevated ferritin Procedures MRI Abdomen wwo Contrast (Generic) Cristobal Chavez MD [facility] DR HEMATOLOGY [place] [address] [place] [address] Referral ID Status Reason Start Date Expiration Date V isits Requested Visits Authorized [id number] Closed Specialty Service Requested 12/17/2021 06/18/2023 1 1 Encounter Details Date Type Department Care Team (Late st Contact Info) Description 12/17/2021 Orders Only [place] [address] Cristobal Chavez MD [facility] HEMATOLOGY [place] [address] Elevated ferritin Social History Tobacco Use Types [...] place to sleep or slept in a half-way (including now)? No 11/26/2021 Sex and Gender [...] who have questions please contact the health healthcare manager that requested your imaging first. ? Electronically signed by: Jay García MD, [facility] ([phone]), at 01/15/2022 5:09 PM Narrative 01/15/2022 5:09 [...] patients who have questions please contactthe health healthcare manager that requested your imaging first. Cristobal Chavez MD [facility] MRI ORDERABLES documented in this encounter Visit Diagnoses Diagnosis Elevated ferritin Other abnormal blood chemistry Elevated ferritin Other abnormal blood chemistry documented in this encounter Care Teams Drafter Seismograph Relationship Specialty Start Date End Date Maureen Lua APRN [address] [place] [address] PCP - General Internal Medicine 08/18/18 documented as of this encounter
--- OUTSIDE RECORDS SUMMARY | 2023-12-02 11:22 | XMS_ITS | Encounter Summary ---
Author Organization [facility] Address [facility] [place] [address] Care Team Providers Care Strand Galvanizer Name Role Phone Maureen Lua APRN Primary Care Provider [phone] Encounter Details Date Type Department Care Team (Late st Contact Info) Description 12/10/2021 Telephone Hematology/Oncology at [address] [address] Sheyla Self Social History Tobacco [...] place to sleep or slept in a retirement (including now)? No 11/26/2021 Sex and Gender [...] on filedocumented in this encounter Care Teams Strand Galvanizer Relationship Specialty Start Date End Date Maureen Lua APRN [address] [place] [address] PCP - General Internal Medicine 08/18/18 documented as of this encounter
--- OUTSIDE RECORDS SUMMARY | 2023-12-02 11:22 | XMS_ITS | Encounter Summary ---
Author Organization [facility] [place] [address] Care Team Providers Care Sales And Leasing Agent Name Role Phone Maureen Lua APRN Primary Care Provider [phone] Reason for Referral * Diagnostic Test (Routine) - Closed Specialty Diagnoses / Procedures Referred By Contac t Referred To Contact Diagnoses Neck pain Ankylosing spondylitis, unspecified site of spine Procedures MRI Cervical Spine wo Contrast (Generic) Ney Hickman MD [facility] [place] [address] Referral ID Status Reason Start Date Expiration Date V isits Requested Visits Authorized [id number] Closed Specialty Service Requested 01/05/2019 07/04/2019 1 1 * Physical Therapy (Routine) - Specialty Diagnoses / Procedures Referred By Contac t Referred To Contact Diagnoses Inflammatory arthropathy Chronic bilateral low back pain without sciatica Inflammatory back pain Neck pain Chronic midline thoracic back pain Ney Hickman MD [facility] [place] [address] Referral ID Status Reason Start Date Expiration Date V isits Requested Visits Authorized [id number] Evaluate and Treat 01/05/2019 07/04/2019 12 12 Reason for Visit * Reason Comments Follow-up Encounter Details Date Type Department Care Team (Late st Contact Info) Description 01/05/2019 2:00 PM EDT Office [place] [address] Ney Hickman MD [facility] [place] [address] Neck pain (Primary Dx); Inflammatory arthropathy; Chronic [...] pain takes a daily also is on [place].. He has stomach issues with NSAIDs takes his Dexilant after meals does not use NSAIDs with food. I have reviewed the provided records, pertinent records available at the time of the [facility] appointment with in the medical record and [...] on phone: None Gets together: None Attends scientology service: None Active member of club or [...] the number below. ? Electronically signed by: CHRISTY Brambila [facility] ([phone]), at 05/17/2019 11:21 AM Narrative 05/17/2019 11:21 [...] number below. Electronically signed by: Jimmie Velazquez [facility]([phone]), at 05/17/2019 11:21 AM Ney Hickman MD IMG MRI ORDERABLES documented in this encounter Visit Diagnoses Diagnosis Neck pain- Primary Cervicalgia Inflammatory arthropathy Arthropathy, unspecified, site unspecified Chronic bilateral low back pain without sciatica Inflammatory back pain Chronic midline thoracic back pain Ankylosing spondylitis, unspecified site of spine Neck pain Cervicalgia Ankylosing spondylitis, unspecified site of spine documented in this encounter Care Teams Sales And Leasing Agent Relationship Specialty Start Date End Date Maureen Lua, NEURODIAGNOSTIC TECH [address] [place] [address] PCP - General Internal Medicine 08/18/18 documented as of this encounter
--- OUTSIDE RECORDS SUMMARY | 2023-12-02 11:22 | XMS_ITS | Encounter Summary ---
Author Organization [facility] [place] [address] Care Team Providers Care Digital Printer Operator Name Role Phone Maureen Lua APRN Primary Care Provider [phone] Encounter Details Date Type Department Care Team (Late st Contact Info) Description 04/25/2019 [place] [address] Ney Hickman MD [facility] [place] [address] Social History Tobacco Use Types Packs/Day Years [...] on filedocumented in this encounter Care Teams Digital Printer Operator Relationship Specialty Start Date End Date Maureen Lua APRN [address] [place] [address] PCP - General Internal Medicine 08/18/18 documented as of this encounter
--- OUTSIDE RECORDS SUMMARY | 2023-12-02 11:22 | XMS_ITS | Encounter Summary ---
Author Organization [facility] [place] [address] Care Team Providers Care Bridge Ironworker Name Role Phone Maureen Lua APRN Primary Care Provider [phone] Encounter Details Date Type Department Care Team (Late st Contact Info) Description 12/20/2018 5:50 PM EDT Ancillary Procedure Radiology Library [place] [facility] [place] [phone] Ney Hickman MD [facility] [address] Social History Tobacco Use Types Packs/Day Years [...] MR Pelvis (12/20/2018 5:48 PM EDT) Narrative [facility] - 12/20/2018 5:48 PM EDT This exam is auto-finalizing. It's purpose is for storage only. Ney Hickman MD IMG FILM LIBRARY ORD ERABLES [place], [place] documented in this encounter Visit Diagnoses Not on filedocumented in this encounter Care Teams Bridge Ironworker Relationship Specialty Start Date End Date Maureen Lua, WATER SYSTEMS ENGINEER [address] [place] [address] PCP - General Internal Medicine 08/18/18 documented as of this encounter
--- OUTSIDE RECORDS SUMMARY | 2023-12-02 11:22 | XMS_ITS | Encounter Summary ---
[place] [address] Care Team Providers Care Piano Refinisher Name Role Phone Maureen Lua APRN Primary Care Provider [phone] Encounter Details Date Type Department Care Team (Late st Contact Info) Description 05/17/2019 Specialty [place] [address] Alessandro Mccormick Social History Tobacco Use Types [...] on filedocumented in this encounter Care Teams Piano Refinisher Relationship Specialty Start Date End Date Maureen Lua APRN [address] [place] [place] [address] PCP - General Internal Medicine 08/18/18 documented as of this encounter
--- OUTSIDE RECORDS SUMMARY | 2023-12-02 11:22 | XMS_ITS | Encounter Summary ---
[place] [address] Care Team Providers Care Information Clerk Brokerage Name Role Phone Maureen Lua APRN Primary Care Provider [phone] Reason for Visit * Reason Comments Medication Management Medication Refill Encounter Details Date Type Department Care Team (Late st Contact Info) Description 04/17/2019 Specialty [place] [phone] Brooklyn Montgomery, [facility] Social History Tobacco Use Types [...] Specialty Services Specialty Pharmacy Consultation; Brooklyn Montgomery [facility] Comprehensive Medication Management (CMM) Erasto Chapman [address] [facility] [address] Telephone Information: Work Phone Not on file. [...] at the appointment and that [facility] isproviding recommendations (summary located at top of note) for provider review and follow up. Brooklyn Montgomery RPH 04/17/19 8:33 AM * Brooklyn Montgomery RPH - 04/17/2019 8:33 AM EST Clinical Management Plan: Transfer of Care Specialty Pharmacy Consultation; Brooklyn Montgomery RPH Comprehensive Medication Management (CMM) Erasto Oswald Ari [facility]- Art Psychotherapist Or Therapist Assistance Update The [facility] has looked into assistance for the following patient, but we have not been able to find any copay cards or foundations with available funding for them. The patient has beenprovided information to apply for weave room supervisor assistance program to receive free medication. The [facility] will follow-up with the patient [...] Faxed complete Enbrel patient assistance application to [email or web address] * Maria C Magallanes RPH - 04/17/2019 8:33 AM EST Received fax that patient is eligible to receive Enbrel from [employer] free of charge from 04/26/2019 to03/06/2020. documented in this encounter Plan of Treatment Not on file documented as of this encounter Visit Diagnoses Not on filedocumented in this encounter Care Teams Information Clerk Brokerage Relationship Specialty Start Date End Date Maureen Lua APRN [address] [place] [address] PCP - General Internal Medicine 08/18/18 documented as of this encounter
--- OUTSIDE RECORDS SUMMARY | 2023-12-02 11:22 | XMS_ITS | Encounter Summary ---
Author Organization [facility] Address [facility] [place] [address] Care Team Providers Care Meat Supervisor Name Role Phone Maureen Lua APRN Primary Care Provider Reason for Visit * Consultation (Routine) - Closed Specialty Diagnoses / Procedures Referred By Controse mary t Referred To Contact Hematology and Oncology Diagnoses Elevated ferritin level Maureen Lua APRN [address] [place] [address] Stj Hem Onc Office [address] [place] [address] Referral ID Status Reason Start Date Expiration Date V isits Requested Visits Authorized [id number] Closed Consult, Test & Treat PCP Updated and/or Approved 10/27/2021 10/27/2022 6 6 Encounter Details Date Type Department Care Team (Late st Contact Info) Description 11/26/2021 2:00 PM EDT Office Visit Hematology/Oncology at [address] [address] Cristobal Chavez MD [facility] DR [place] [address] Elevated ferritin Social History Tobacco [...] place to sleep or slept in a skilled nursing (including now)? 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 He was followed by [facility] rheumatology previously. He is also followed by a local mutuel machine operator for chronic cough This is a consultation [...] he will have to travel either to [facility] or [facility] for the MRI scan. I will plan [...] chemistry documented in this encounter Care Teams Meat Supervisor Relationship Specialty Start Date End Date Maureen Lua APRN [address] [place] [address] PCP - General Internal Medicine 08/18/18 documented as of this encounter
--- OUTSIDE RECORDS SUMMARY | 2023-12-02 11:22 | XMS_ITS | Encounter Summary ---
[place] [address] Care Team Providers Care Dumper Name Role Phone Maureen Lua APRN Primary Care Provider [phone] Reason for Visit * Reason Comments Medication Management Patient Education Encounter Details Date Type Department Care Team (Late st Contact Info) Description 06/23/2020 Specialty [place] [phone] Kan Santacruz [facility] Social History [...] Progress Notes * Kan Santacruz [facility] - 06/23/2020 2:00 PM EDT Clinical Management Plan: Refill Specialty Pharmacy Consultation; Kan Santacruz [facility] Comprehensive Medication Management (CMM) Erasto Akers [...] Known Allergies Medication Reconciliation Discrepancies (compared to [facility] med list) No Specialty Pharmacy Refill Questionnaire Refill Questionnaire 06/23/2020 What is the name of the specialty medication you are refilling? enbrel Are you taking any new medications? No Any new medical condition? No Any new allergies? No Any new side effects that are bothersome? No What date will you need this fill by? [id number] Adherence: Any missed doses? No Patient understands no changes to current drug regimen were made.. Kan Santacruz RPH 06/23/20 2:01 PM documented in this encounter Plan of Treatment Not on file documented as of this encounter Visit Diagnoses Not on filedocumented in this encounter Care Teams Dumper Relationship Specialty Start Date End Date Maureen Lua APRN [address] [place] [address] PCP - General Internal Medicine 08/18/18 documented as of this encounter
--- OUTSIDE RECORDS SUMMARY | 2023-12-02 11:22 | XMS_ITS | Encounter Summary ---
[place] [address] Care Team Providers Care Glass Forming Engineer Name Role Phone Maureen Lua APRN Primary Care Provider Reason for Visit * Reason Comments Medication Management Patient Education Encounter Details Date Type Department Care Team (Late st Contact Info) Description 12/25/2020 Specialty [place] [phone] Kan Santacruz [facility] Social History Tobacco Use Types Packs/Day [...] this encounter Progress Notes * Kan Santacruz [facility] - 12/25/2020 1:38 PM EDT Clinical Management Plan: Transfer of Care/Discharge Specialty Services Specialty Pharmacy Consultation; Kan Santacruz [facility] Comprehensive Medication Management (CMM) Erasto Chapman [address] [facility] [address] Telephone Information: Work Phone Not on file. Mobile Not on file. Is the patient transferring services to a different Specialty Pharmacy or discontinuing the medication? Transferring Services Medication: enbrel Reason for discontinuation or transfer: Now seeing doctor at [facility] and getting enbrel at [facility] Approximate date of discontinuation or transfer: [...] were made at the appointment and that [facility] isproviding recommendations (summary located at top of note) for provider review and follow up. Kan Santacruz RPH 12/25/20 1:39 PM documented in this encounter Plan of Treatment Not on file documented as of this encounter Visit Diagnoses Not on filedocumented in this encounter Care Teams Glass Forming Engineer Relationship Specialty Start Date End Date Maureen Lua APRN [address] [facility] [place] [address] PCP - General Internal Medicine 08/18/18 documented as of this encounter
--- OUTSIDE RECORDS SUMMARY | 2023-12-02 11:22 | XMS_ITS | Encounter Summary ---
[place] [address] Care Team Providers Care Return Agent Name Role Phone Maureen Lua APRN Primary Care Provider [phone] Reason for Visit * Reason Onset Date Comments Prior Authorization 12/08/2018 Encounter Details Date Type Department Care Team (Late st Contact Info) Description 12/08/2018 Telephone [place] [phone] Radha Vaughn Prior Authorization Social History Tobacco [...] Rationale for request: Inflammatory arthropathy Health plan: Heidi Shaulis ([facility]) Authorizing circulation representative name: Kayce Faxed to health plan on: 12/08/18 Health plan decision: Approved Quantity approved: Authorization number: Start date: 09/09/18 End date: 12/08/19 documented in this encounter Plan of Treatment Not on file documented as of this encounter Visit Diagnoses Not on filedocumented in this encounter Care Teams Return Agent Relationship Specialty Start Date End Date Maureen Lua APRN [address] [place] [address] PCP - General Internal Medicine 08/18/18 documented as of this encounter
--- OUTSIDE RECORDS SUMMARY | 2023-12-02 11:22 | XMS_ITS | Encounter Summary ---
[place] [address] Care Team Providers Care Cleat Blanker Name Role Phone Maureen Lua APRN Primary Care Provider [phone] Reason for Visit * Reason Comments Medication Management Encounter Details Date Type Department Care Team (Late st Contact Info) Description 04/11/2020 Specialty [place] [phone] Deepali Grey, [facility] Social History Tobacco Use Types Packs/Day [...] this encounter Progress Notes * Deepali Grey [facility] - 04/11/2020 12:33 PM EST Specialty Pharmacy Consultation; Deepali Grey [facility] Comprehensive Medication Management (CMM): Specialty Consult, [...] medication related questions and concerns were addressed. [facility] with the patient 7 days prior to next refill. Is the patient willing to proceed with the Clinical Assessment? No Summary and Recommendations: I spoke with both Erasto and Juanis. He has been on the medication for some time and does not haveany questions. They were originally getting it through the [employer], but his insurance is now paying for it. He has 2 pens left and injects on Sundays. They are aware there is a pharmacist conference organizer 27/09 if anything comes up. Economic Assessment: [...] on filedocumented in this encounter Care Teams Cleat Blanker Relationship Specialty Start Date End Date Maureen Lua APRN [address] [place] [address] PCP - General Internal Medicine 08/18/18 documented as of this encounter
--- OUTSIDE RECORDS SUMMARY | 2023-12-02 11:22 | XMS_ITS | Encounter Summary ---
[place] [address] Care Team Providers Care Reinsurance Clerk Name Role Phone Maureen Lua APRN Primary Care Provider [phone] Reason for Visit * Reason Comments Specialty Pharmacy Review eternacept (En breL SureClick) Encounter Details Date Type Department Care Team (Late st Contact Info) Description 04/11/2020 Specialty [place] [address] Keegan Davis Social History Tobacco Use Types [...] Davis - 04/11/2020 5:13 PM EST The [facility] has completed a benefits investigation for Erasto Chapman to review their eligibility to fill at [facility]. Per patient's medication list they are prescribed eternacept (EnbreL SureClick) and the medication is able to be filled at the [facility]. documented in this encounter Plan of Treatment Not on file documented as of this encounter Visit Diagnoses Not on filedocumented in this encounter Care Teams Reinsurance Clerk Relationship Specialty Start Date End Date Maureen Lua APRN [address] [place] [address] PCP - General Internal Medicine 08/18/18 documented as of this encounter
--- OUTSIDE RECORDS SUMMARY | 2023-12-02 11:22 | XMS_ITS | Encounter Summary ---
[place] [address] Care Team Providers Care Debeaker Name Role Phone Maureen Lua APRN Primary Care Provider [phone] Encounter Details Date Type Department Care Team (Late st Contact Info) Description 11/21/2020 Specialty Pharmacy [place] [phone] Kan Santacruz [facility] Social [...] encounter Progress Notes * Kan Santacruz [facility] - 11/21/2020 9:01 AM EDT Clinical Management Plan: Refill Specialty Pharmacy Consultation; Kan Santacruz [facility] Comprehensive Medication Management (CMM) Erasto Chapman Mr. [...] Known Allergies Medication Reconciliation Discrepancies (compared to [facility] med list) No Specialty Pharmacy Refill [...] on filedocumented in this encounter Care Teams Debeaker Relationship Specialty Start Date End Date Maureen Lua APRN [address] [facility] [place] [address] PCP - General Internal Medicine 08/18/18 documented as of this encounter
--- OUTSIDE RECORDS SUMMARY | 2023-12-02 11:22 | XMS_ITS | Encounter Summary ---
Author Organization [facility] Address [facility] [place] [address] Care Team Providers Care Supervisor Plastics Name Role Phone Maureen Lua APRN Primary Care Provider [phone] Reason for Referral * Physical Therapy (Routine) - Specialty Diagnoses / Procedures Referred By Contac t Referred To Contact Diagnoses Ankylosing spondylitis, unspecified site of spine Neck pain Midline thoracic back pain, unspecified chronicity Orquidea Patrick APRN [facility] [place] [address] Referral ID Status Reason Start Date Expiration Date V isits Requested Visits Authorized [id number] Evaluate and Treat 09/01/2018 02/28/2019 12 12 Reason for Visit * Reason Comments Pain Management Back Pain * Consultation (Routine) - Closed Specialty Diagnoses / Procedures Referred By Contac t Referred To Contact Pain Management Diagnoses Ankylosing spondylitis, unspecified site of spine but with mecqhniocal back pain Ney Hickman MD [facility] [place] [address] [facility] [address] [facility] [place] [address] Referral ID Status Reason Start Date Expiration Date V isits Requested Visits Authorized [id number] Closed Consult, Test & Treat 08/18/2018 08/18/2019 1 1 Encounter Details Date Type Department Care Team (Late st Contact Info) Description 09/01/2018 9:00 AM EDT Office Visit Pain Management at [facility] [place] [address] Orquidea Patrick APRN [facility] [place] [address] Ankylosing spondylitis, unspecified site of spine; Neck [...] 09/01/2018 9:00 AM EDT 1) Refer to [facility] physical therapy 2) Work on creating [...] Pain: driving, prolonged sitting, riding on the quality inspector, sports Treatment Goals: - improve ROM in the neck - decrease pain in neck Mental Health: - gets carpenter at times SOCIAL HISTORY: Lives with his , Juanis, supportive Two boys 31, 20 Not currently working, on [employer] Social History Socioeconomic History ??? Marital status: [...] file Gets together: Not on file Attends congregation service: Not on file Active member of [...] Clin. Rheumatol. 2014, 33, 451-459. Morgan Rodriguez.; David Diggs. Low-Dose Naltrexone (LDN)-Review of Therapeutic Utilization. [...] you for this referral, Ney Hickman MD [facility] [place] [address]. Orquidea Patrick, MSN, AIRPORT OPERATIONS SUPERVISOR- C, CORRIDOR REDEVELOPMENT MANAGER Nurse Practitioner [facility] [address] [address] / [facility] documented in this encounter Plan of Treatment [...] chronicity documented in this encounter Care Teams Supervisor Plastics Relationship Specialty Start Date End Date Maureen Lua, CORRIDOR REDEVELOPMENT MANAGER [address] [place] [address] PCP - General Internal Medicine 08/18/18 documented as of this encounter
--- OUTSIDE RECORDS SUMMARY | 2023-12-02 11:22 | XMS_ITS | Encounter Summary ---
Author Organization [facility] [place] [address] Care Team Providers Care Cnc Lathe Machine Operator Name Role Phone Maureen Lua APRN Primary Care Provider [phone] Reason for Visit * Reason Onset Date Comments Labs Only 12/31/2021 Lab bi data modeler Encounter Details Date Type Department Care Team (Late st Contact Info) Description 12/31/2021 Telephone Hematology Oncology at [address] [phone] Erna Chino, RN Labs Only (Lab bi data modeler) Social History Tobacco Use Types Packs/Day Years [...] encounter Results * (ABNORMAL) Ferritin (09/30/2021) Pathologist [facility] Ferritin 541(H) Blood 09/30/2021 Historical Provider CHEMISTRY ORDERAB LES * CBC (with Diff) (09/30/2021) Pathologist [facility] White Blood Cell 5.56 Red Blood Cell 5.15 Hemoglobin 16.2 Hematocrit 46.4 Platelet 169 Blood 09/30/2021 Historical Provider HEMATOLOGY ORDERA BLES * (ABNORMAL) Comprehensive metabolic panel (non-fasting) (07/09/2021) Pathologist [facility] Blood Urea Nitrogen 13 Creatinine 1.1 Sodium 144 Potassium 4.0 Calcium 8.4 Protein, Total 7.0 Albumin 3.6 Bilirubin, Total 0.5 Alkaline Phosphatase 91 Aspartate Aminotransferase 22 Alanine Aminotransferase 37 TIBC 221 Ferritin 562(H) Vitamin B12 989(H) Blood 07/09/2021 Historical Provider CHEMISTRY ORDERAB LES * (ABNORMAL) Comprehensive metabolic panel (non-fasting) (09/29/2020) Pathologist [facility] Blood Urea Nitrogen 17 Creatinine 1.2 Sodium 145 Potassium 4.4 Calcium 9.2 Protein, Total 7.2 Albumin 4.1 Bilirubin, Total 0.5 Alkaline Phosphatase 117(H) Aspartate Aminotransferase 36 Alanine Aminotransferase 59 Blood 09/29/2020 Historical Provider CHEMISTRY ORDERAB LES * CBC (with Diff) (09/29/2020) [facility] White Blood Cell 4.76 Red Blood Cell 4.55 Hemoglobin 14.3 Hematocrit 42.9 Platelet 172 Neutrophil Absolute (ANC) - Automated 2.47 Blood 09/29/2020 Historical Provider HEMATOLOGY ORDERA BLES * CBC (with Diff) (04/14/2020) [facility] White Blood Cell 5.29 Red Blood Cell 4.59 Hemoglobin 14.3 Hematocrit 41.6 Platelet 180 Neutrophil Absolute (ANC) - Automated 2.87 Blood 04/14/2020 Historical Provider HEMATOLOGY ORDERA BLES documented in this encounter Visit Diagnoses Not on filedocumented in this encounter Care Teams Cnc Lathe Machine Operator Relationship Specialty Start Date End Date Maureen Lua APRN [address] [place] [address] PCP - General Internal Medicine 08/18/18 documented as of this encounter
--- OUTSIDE RECORDS SUMMARY | 2023-12-02 11:22 | XMS_ITS | Encounter Summary ---
Author Organization [facility] [place] [address] Care Team Providers Care Roller Painter Name Role Phone Maureen Lua APRN Primary Care Provider [phone] Reason for Referral * Consultation (Routine) - Closed Specialty Diagnoses / Procedures Referred By Contac t Referred To Contact Pain Management Diagnoses Ankylosing spondylitis, unspecified site of spine but with mecqhniocal back pain Ney Hickman MD [facility] [place] [place] [address] [facility] [address] [place] [phone] Referral ID Status Reason Start Date Expiration Date V isits Requested Visits Authorized [id number] Closed Consult, Test & Treat 08/18/2018 08/18/2019 1 1 Reason for Visit * Consultation (Routine) - Specialty Diagnoses / Procedures Referred By Contac t Referred To Contact Rheumatology Diagnoses Ankylosing Spondyltis Brionna Neves MD [facility] RHEUMATOLOGY [address] [place] [phone] [facility] Rheumatology [address] [place] [phone] Referral ID Status Reason Start Date Expiration Date V isits Requested Visits Authorized [id number] 04/17/2018 04/17/2019 1 1 Encounter Details Date Type Department Care Team (Late st Contact Info) Description 08/18/2018 11:00 AM EDT Office Visit Rheumatology at [facility] [place] [address] Ney Hickman MD [facility] [place] [address] Ankylosing spondylitis, unspecified site of spine Social [...] available at the time of [place] [facility] [place] with in the medical record and [...] pain takes a daily also is on Wayne.. Stomach issues with NSAIDs takes his Dexilant [...] on phone: None Gets together: None Attends advent service: None Active member of club or [...] from 625 2000 mg to depending on Wayne use. Patient understands that he will have to calculate in the Tylenol with the Wayne for a total daily use. Also recommend [...] spine documented in this encounter Care Teams Roller Painter Relationship Specialty Start Date End Date Maureen Lua APRN [address] [place] [address] PCP - General Internal Medicine 08/18/18 documented as of this encounter
--- OUTSIDE RECORDS SUMMARY | 2023-12-02 11:22 | XMS_ITS | Encounter Summary ---
Author Organization [facility] Address [facility] [place] [address] Care Team Providers Care Reservoir Caretaker Name Role Phone Maureen Lua APRN Primary Care Provider [phone] Encounter Details Date Type Department Care Team (Late st Contact Info) Description 02/04/2022 8:30 AM EST Office Visit Hematology/Oncology at [address] [phone] Cristobal Chavez MD [facility] [address] [place]AT[place] [address] Donya Oliveira APRN [facility] [address] [place] [address] Elevated ferritin Social History Tobacco Use Types [...] place to sleep or slept in a prison (including now)? No 11/26/2021 Sex and Gender [...] a 61-year-old man who returns to the [place] hematology clinic. I originallysaw him on 11/26/2021. [...] Naprosyn for his chronic arthritic problems. MRI [phone] 3201 01/15/2022 Narrative & Impression EXAMINATION: MRI ABDOMEN [...] who have questions please contact the health lawn care professional that requested your imaging first. Electronically signed by: Jay García MD, [facility] ([phone]), at 01/15/2022 5:09 PM assessment 61-year-old man who is a compound [...] overload. He could donate blood at the [facility] if he wishes to do so and [...] chemistry documented in this encounter Care Teams Reservoir Caretaker Relationship Specialty Start Date End Date Maureen Lua APRN [address] [place] [address] PCP - General Internal Medicine 08/18/18 documented as of this encounter
--- OUTSIDE RECORDS SUMMARY | 2023-12-02 11:22 | XMS_ITS | Encounter Summary ---
Author Organization [facility] [place] [address] Care Team Providers Care Children'S Attendant Name Role Phone Maureen Lua APRN Primary Care Provider Reason for Referral * Consultation (Routine) - Closed Specialty Diagnoses / Procedures Referred By Contac t Referred To Contact Hematology and Oncology Diagnoses Elevated ferritin level Maureen Lua APRN [address] [place] [address] [facility] [address] [place] [phone] Referral ID Status Reason Start Date Expiration Date V isits Requested Visits Authorized [id number] Closed Consult, Test & Treat PCP Updated and/or Approved 10/27/2021 10/27/2022 6 6 Encounter Details Date Type Department Care Team (Latest Contact Info) Description 10/27/2021 Transcribe Orders eDH Incoming Referrals [phone] Maureen Lua APRN [address] [place] [address] Elevated ferritin level Social History [...] chemistry documented in this encounter Care Teams Children'S Attendant Relationship Specialty Start Date End Date Maureen Lua APRN [address] [place] [address] PCP - General Internal Medicine 08/18/18 documented as of this encounter
--- OUTSIDE RECORDS SUMMARY | 2023-12-02 11:22 | XMS_ITS | Encounter Summary ---
Author Organization [facility] Address [facility] [address] Care Team Providers Care Biology Lecturer Name Role Phone Maureen Lua APRN Primary Care Provider [phone] Reason for Referral * Consultation (Routine) - Specialty Diagnoses / Procedures Referred By Contac t Referred To Contact Diagnoses Neck pain Chronic bilateral low back pain without sciatica Ney Hickman MD [facility] [address] Referral ID Status Reason Start Date Expiration Date V isits Requested Visits Authorized [id number] Consult, Test & Treat 05/17/2019 11/13/2019 1 1 Encounter Details Date Type Department Care Team (Latest Contact Info) Description 05/17/2019 2:00 PM EDT Office [place] [address] Ney Hickman MD [facility] [address] High risk medication use; Inflammatory arthropathy; Ankylosing [...] pain takes a daily also is on [place].. He has stomach issues with NSAIDs takes his Dexilant after meals does not use NSAIDs with food. I have reviewed the provided records, pertinent records available at the time of the [facility] appointment with in the [...] risk. Fatigue has sleep apnea no neeraj fountani taking care of mom who has trach [...] file Gets together: Not on file Attends mandaeism service: Not on file Active member of [...] ( heel to wall within normal limits mika 15 no done this visit) Spine, shoulders, [...] sciatica documented in this encounter Care Teams Biology Lecturer Relationship Specialty Start Date End Date Maureen Lua APRN [address] [place] [address] PCP - General Internal Medicine 08/18/18 documented as of this encounter
--- OUTSIDE RECORDS SUMMARY | 2023-12-02 11:22 | XMS_ITS | Encounter Summary ---
[place] [address] Care Team Providers Care Maintenance Mechanic Helper Name Role Phone Maureen Lua APRN Primary Care Provider [phone] Reason for Referral * Diagnostic Test (Routine) - Closed Specialty Diagnoses / Procedures Referred By Contac t Referred To Contact Radiology Diagnoses Elevated ferritin Procedures MRI Additional Views - Body Jay García MD [facility] [place] [address] [place] [address] Referral ID Status Reason Start Date Expiration Date V isits Requested Visits Authorized [id number] Closed Specialty Service Requested 01/04/2022 07/05/2023 1 1 Encounter Details Date Type Department Care Team (Late st Contact Info) Description 01/04/2022 [place] [address] Jay García MD [facility] [place] [address] Elevated ferritin Social History Tobacco [...] who have questions please contact the health associate director career services that requested your imaging first. ? Electronically signed by: Jay García MD, [facility] ([phone]), at 01/15/2022 5:09 PM Narrative 01/15/2022 5:09 [...] patients who have questions please contactthe health associate director career services that requested your imaging first. Jay García MD IMG MRI ORDERABLES documented in this encounter Visit Diagnoses Diagnosis Elevated ferritin Other abnormal blood chemistry Elevated ferritin Other abnormal blood chemistry documented in this encounter Care Teams Maintenance Mechanic Helper Relationship Specialty Start Date End Date Maureen Lua APRN [address] [place] [address] PCP - General Internal Medicine 08/18/18 documented as of this encounter
--- OUTSIDE RECORDS SUMMARY | 2023-12-02 11:22 | XMS_ITS | Encounter Summary ---
[place] [address] Care Team Providers Care Olive Packer Name Role Phone Maureen Lua APRN Primary Care Provider [phone] Encounter Details Date Type Department Care Team (Late st Contact Info) Description 09/04/2019 Specialty [place] [address] Alessandro Mccormick Social History Tobacco Use Types [...] on filedocumented in this encounter Care Teams Olive Packer Relationship Specialty Start Date End Date Maureen Lua APRN [address] [place], [place] [address] PCP - General Internal Medicine 08/18/18 documented as of this encounter
--- OUTSIDE RECORDS SUMMARY | 2023-12-02 11:22 | XMS_ITS | Encounter Summary ---
[place] [address] Care Team Providers Care Sailing Instructor Name Role Phone Maureen Lua APRN Primary Care Provider [phone] Reason for Visit * Reason Comments Medication Management Patient Education Encounter Details Date Type Department Care Team (Late st Contact Info) Description 07/22/2020 Specialty [place] [phone] Kan Santacruz [facility] Social History Tobacco Use Types Packs/Day [...] this encounter Progress Notes * Kan Santacruz [facility] - 07/22/2020 1:31 PM EDT Clinical Management Plan: Refill Specialty Pharmacy Consultation; Kan Santacruz [facility] Comprehensive Medication Management (CMM) Erasto Akers [...] Known Allergies Medication Reconciliation Discrepancies (compared to [facility] med list) No Specialty Pharmacy Refill [...] on filedocumented in this encounter Care Teams Sailing Instructor Relationship Specialty Start Date End Date Maureen Lua APRN [address] [facility] [place] [address] PCP - General Internal Medicine 08/18/18 documented as of this encounter
--- OUTSIDE RECORDS SUMMARY | 2023-12-02 11:22 | XMS_ITS | Encounter Summary ---
Author Organization [facility] Address [facility] [place] [address] Care Team Providers Care Guest Experience Specialist Name Role Phone Maureen Lua APRN Primary Care Provider [phone] Encounter Details Date Type Department Care Team [...] on filedocumented in this encounter Care Teams Guest Experience Specialist Relationship Specialty Start Date End Date Maureen Lua APRN [address] [place] [address] PCP - General Internal Medicine 08/18/18 documented as of this encounter
--- OUTSIDE RECORDS SUMMARY | 2023-12-02 11:22 | XMS_ITS | Encounter Summary ---
[place] [address] Care Team Providers Care Rum Processing Operator Name Role Phone Maureen Lua APRN Primary Care Provider Reason for Referral * Diagnostic Test (Routine) - Closed Specialty Diagnoses / Procedures Referred By Contac t Referred To Contact Radiology Diagnoses Elevated ferritin Procedures MRI Abdomen wwo Contrast (Generic) Cristobal Chavez MD [facility] [address] [place] [address] [place] [address] Referral ID Status Reason Start Date Expiration Date V isits Requested Visits Authorized [id number] Closed Specialty Service Requested 12/17/2021 06/18/2023 1 1 Reason for Visit * Diagnostic Test (Routine) - Closed Specialty Diagnoses / Procedures Referred By Contac t Referred To Contact Radiology Diagnoses Elevated ferritin Procedures MRI Abdomen wwo Contrast (Generic) Cristobal Chavez MD [facility] [address] [place] [address] [place] [address] Referral ID Status Reason Start Date Expiration Date V isits Requested Visits Authorized [id number] Closed Specialty Service Requested 12/17/2021 06/18/2023 1 1 Encounter Details Date Type Department Care Team (Latest Contact Info) Description 01/01/2022 5:03 PM EDT - 01/01/2022 11:59 PM EDT Hospital Encounter MRI [place] [facility] [phone] Cristobal Chavez MD [facility] [place] [address] Elevated ferritin Discharge Disposition: Home Social History [...] who have questions please contact the health plant health care technician that requested your imaging first. ? Narrative [...] patients who have questions please contactthe health plant health care technician that requested your imaging first. Cristobal Chavez MD [facility] MRI ORDERABLES documented in this encounter Visit [...] mLs documented in this encounter Care Teams Rum Processing Operator Relationship Specialty Start Date End Date Maureen Lua, HEALTH COMMUNICATIONS SPECIALIST [address] [place] [address] PCP - General Internal Medicine 08/18/18 documented as of this encounter
--- OUTSIDE RECORDS SUMMARY | 2023-12-02 11:22 | XMS_ITS | Encounter Summary ---
[place] [address] Care Team Providers Care Supervisor Major Appliance Assembly Name Role Phone Maureen Lua APRN Primary Care Provider [phone] Encounter Details Date Type Department Care Team (Late st Contact Info) Description 01/14/2020 Specialty [place] [address] Maria C Magallanes, [facility] Social History Tobacco Use Types Packs/Day [...] filedocumented in this encounter Care Teams Supervisor Major Appliance Assembly Relationship Specialty Start Date End Date Maureen Lua APRN [address] [place] [address] PCP - General Internal Medicine 08/18/18 documented as of this encounter
--- OUTSIDE RECORDS SUMMARY | 2023-12-02 11:22 | XMS_ITS | Encounter Summary ---
Author Organization [facility] [place] [address] Care Team Providers Care Invoicing Machine Operator Name Role Phone Unknown Primary Care Provider Unavailabl e Encounter Details Date Type Department Care Team (Late st Contact Info) Description 01/18/2018 Ancillary Procedure Radiology Library [place] [address] Orquidea Patrick APRN [facility] [place] [address] Social History Tobacco Use Types Packs/Day Years [...] DX Spine (01/18/2018 12:00 AM EST) Narrative RAD - 08/22/2018 7:51 AM EDT This exam is auto-finalizing. It's purpose is for storage only. Orquidea COUCH FILM LIBRARY ORD ERABLES [facility] [place] documented in this encounter Visit Diagnoses Not on filedocumented in this encounter Care Teams Invoicing Machine Operator Relationship Specialty Start Date End Date Unknown None PCP - General 12/15/16 08/17/18 documented as of this encounter
--- OUTSIDE RECORDS SUMMARY | 2023-12-02 11:22 | XMS_ITS | Encounter Summary ---
Author Organization [facility] Address [facility] [place] [address] Care Team Providers Care Museum Librarian Name Role Phone Maureen Lua APRN Primary Care Provider [phone] Reason for Visit * Reason Onset Date Comments Medication Refill 01/10/2019 Encounter Details Date Type Department Care Team (Late st Contact Info) Description 01/05/2019 [place] [address] Ney Hickman MD [facility] [place] [address] Ankylosing spondylitis, unspecified site of spine Social [...] spine documented in this encounter Care Teams Museum Librarian Relationship Specialty Start Date End Date Maureen Lua APRN [address] [place] [address] PCP - General Internal Medicine 08/18/18 documented as of this encounter
--- OUTSIDE RECORDS SUMMARY | 2023-12-02 11:22 | XMS_ITS | Encounter Summary ---
Author Organization [facility] [place] [address] Care Team Providers Care Professor Of Exercise Science Name Role Phone Maureen Lua APRN Primary Care Provider [phone] Reason for Visit * Reason Comments Medication Refill Encounter Details Date Type Department Care Team (Late st Contact Info) Description 03/04/2019 [place] [address] Ney Hickman MD [facility] [place] [address] High risk medication use; Inflammatory arthropathy; Morning [...] site documented in this encounter Care Teams Professor Of Exercise Science Relationship Specialty Start Date End Date Maureen Lua APRN [address] [place], [place] [id number] PCP - General Internal Medicine 08/18/18 documented as of this encounter
--- OUTSIDE RECORDS SUMMARY | 2023-12-02 11:22 | XMS_ITS | Encounter Summary ---
[place] [address] Care Team Providers Care Vision Therapist Name Role Phone Maureen Lua APRN Primary Care Provider [phone] Reason for Visit * Reason Comments Prior Authorization Enbrel Sureclick 50 mg/ml SOAJ Encounter Details Date Type Department Care Team (Late st Contact Info) Description 01/22/2020 Specialty Pharm[place] [address] Melvin Jean, [facility] Social History Tobacco Use Types Packs/Day [...] Erasto Chapman Patient : 1960 Patient Address: [address] [place] [phone] (home) Medication Name: ENBREL SURECLICK 50 MG/ML (1 ML) SUBCUTANEOUS PEN INJECTOR Medication ID: [id number] Patient Location: [facility] RHEUMATOLOGY 5C Patient Location Comment: Subscriber Insurance: RETC Subscriber Insurance Comment: Fax: Physician: LESLIE SCHWARTZ Physician Comment: Sent Via: [facility] Bryant: [id number] Ref/Case/PA#: Medication Strength Frequency Requested: Enbrel Sureclick 50 mg/ml SOAJ Inject 50 mg (1 Pen) Subcutaneously Every 7 Days Qty/Day Supply: 07/02 New Start: Renewal Diagnosis & ICD-10 Code: Ankylosing Spondylitis M45.9 Patient Notified: No Submission Notes: Reauthorization Melvin Jean CPHT 01/22/20 2:11 PM * Melvin Jean CPHT - 01/22/2020 2:09 PM EST [facility], Prior Authorization Approval Medication Name: ENBREL SURECLICK 50 MG/ML (1 ML) SUBCUTANEOUS PEN INJECTOR Medication ID: [id number] Fillable at [facility]: Yes Approval Dates: 10/24/2019 to 01/21/2023 Insurance requirements/notes: Patient May Fill With Pharmacy Other Notes: None Case/Reference #: [id number] Approval notification Received via: Fax Copay: $3.90 Copay assistance: None Copay Notes: N/A Insurance mandated Pharmacy: [facility] Pharmacy staff will be reaching out to the patient to inform them of their medication[facility]. If applicable, a pharmacist will speak with the patient to offer our specialty pharmacy services and to arrange delivery of their medication. Melvin Jean CPHT 01/22/20 2:47 PM documented in this encounter Plan of Treatment Not on file documented as of this encounter Visit Diagnoses Not on filedocumented in this encounter Care Teams Vision Therapist Relationship Specialty Start Date End Date Maureen Lua, SPD MANAGER [address] [place] [address] PCP - General Internal Medicine 08/18/18 documented as of this encounter
--- OUTSIDE RECORDS SUMMARY | 2023-12-02 11:22 | XMS_ITS | Encounter Summary ---
[place] [address] Care Team Providers Care Radar Scientist Name Role Phone Maureen Lua APRN Primary Care Provider [phone] Reason for Visit * Reason Comments Medication Management Encounter Details Date Type Department Care Team (Late st Contact Info) Description 05/28/2020 Specialty [place] [phone] Dayday Ochoa, [facility] Social History Tobacco Use Types Packs/Day [...] this encounter Progress Notes * Dayday Ochoa [facility] - 05/28/2020 4:20 PM EDT Clinical Management Plan: Refill Specialty Pharmacy Consultation; Dayday Ochoa [facility] Comprehensive Medication Management (CMM) Erasto Chapman [...] beneficiary Provider: plan sponsor pharmacist Visit Type: [facility] Follow-up Method of Contact: by telephone Cognitive Ability: good Allergies and Drug intolerance: No Known Allergies Medication Reconciliation Discrepancies (compared to [facility] med list) -none New medications: no New [...] were made at the appointment and that [facility] is providing recommendations (summary located at top of note) for provider review and follow up. Dayday Ochoa RPH 05/28/20 4:22 PM documented in this encounter Plan of Treatment Not on file documented as of this encounter Visit Diagnoses Not on filedocumented in this encounter Care Teams Radar Scientist Relationship Specialty Start Date End Date Maureen Lua APRN 4 [facility] [place] [address] PCP - General Internal Medicine 08/18/18 documented as of this encounter
--- OUTSIDE RECORDS SUMMARY | 2023-12-02 11:22 | XMS_ITS | Encounter Summary ---
[place] [address] Care Team Providers Care Nonprofit Fundraiser Name Role Phone Maureen Lua APRN Primary Care Provider Reason for Visit * Reason Onset Date Comments Prior Authorization 11/17/2018 Encounter Details Date Type Department Care Team (Late st Contact Info) Description 11/17/2018 Telephone [place] [phone] Dariel Muhammad, senior electrical controls engineer Social History Tobacco Use Types Packs/Day Years [...] on filedocumented in this encounter Care Teams Nonprofit Fundraiser Relationship Specialty Start Date End Date Maureen Lua APRN [address] [place] [address] PCP - General Internal Medicine 08/18/18 documented as of this encounter
--- OUTSIDE RECORDS SUMMARY | 2023-12-02 11:22 | XMS_ITS | Encounter Summary ---
Author Organization [facility] [place] [address] Care Team Providers Care Vehicle Damage Appraiser Name Role Phone Maureen Lua APRN Primary Care Provider [phone] Encounter Details Date Type Department Care Team (Late st Contact Info) Description 12/20/2018 6:00 PM EDT Ancillary Procedure Radiology Library at [facility] [place] [phone] Ney Hickman MD [facility] [place] [address] Social History Tobacco Use Types Packs/Day Years [...] DX Spine (12/20/2018 5:51 PM EDT) Narrative [facility] - 12/20/2018 5:51 PM EDT This exam is auto-finalizing. It's purpose is for storage only. Ney Hickman MD IMG FILM LIBRARY ORD ERABLES [place], [place] documented in this encounter Visit Diagnoses Not on filedocumented in this encounter Care Teams Vehicle Damage Appraiser Relationship Specialty Start Date End Date Maureen Lua, NOUGAT CUTTER MACHINE [address] [place] [address] PCP - General Internal Medicine 08/18/18 documented as of this encounter
--- OUTSIDE RECORDS SUMMARY | 2023-12-02 11:22 | XMS_ITS | Encounter Summary ---
[place] [address] Care Team Providers Care It Application Support Analyst Name Role Phone Maureen Lua APRN Primary Care Provider [phone] Encounter Details Date Type Department Care Team (Late st Contact Info) Description 11/01/2018 Specialty [place] [address] Maria C Magallanes [facility] [place] Social History Tobacco Use Types Packs/Day Years [...] support during therapy.??The patient??is filling Cosenty[employer] with [employer], and declines to enroll today because he [...] on filedocumented in this encounter Care Teams It Application Support Analyst Relationship Specialty Start Date End Date Maureen Lua APRN [address] [place] [address] PCP - General Internal Medicine 08/18/18 documented as of this encounter
--- OUTSIDE RECORDS SUMMARY | 2023-12-02 11:22 | XMS_ITS | Encounter Summary ---
Author Organization [facility] [place] [address] Care Team Providers Care Glass Unloading Equipment Tender Name Role Phone Maureen Lua APRN Primary Care Provider [phone] Encounter Details Date Type Department Care Team (Late st Contact Info) Description 12/20/2018 5:55 PM EDT Ancillary Procedure Radiology Library at [facility] [place] [phone] Ney Hickman MD [facility] [place] [address] Social History Tobacco Use Types Packs/Day Years [...] MR Spine (12/20/2018 5:50 PM EDT) Narrative [facility] - 12/20/2018 5:50 PM EDT This exam is auto-finalizing. It's purpose is for storage only. Ney Hickman MD IMG FILM LIBRARY ORD [facility]ABLES [facility] [place] documented in this encounter Visit Diagnoses Not on filedocumented in this encounter Care Teams Glass Unloading Equipment Tender Relationship Specialty Start Date End Date Maureen Lua, MENDER HAND [address] [place] [address] PCP - General Internal Medicine 08/18/18 documented as of this encounter
--- OUTSIDE RECORDS SUMMARY | 2023-12-02 11:23 | XMS_ITS | Encounter Summary ---
Author Organization [facility] Address [address] [place] [address] Care Team Providers Care Journeyman Electrician Pv Installer Name Role Phone Grace Luatom García TRANSACTION ADVISORY SERVICES MANAGER Primary Care Provider [phone] Encounter Details Date Type Department Care Team (Late st Contact Info) Description 07/05/2022 11:30 EDT Phlebotomy Only [facility] ED Center 2 Phlebotomy [address] [place] [address] Ultrasonographer, Acc Phlebotomy Fibromyalgia; Spondyloarthritis Social History Tobacco [...] Visit [facility] Rheumatology & Immunology - [facility] [address] [place], [place] [phone] Butch Blair NP 111 [facility] [address] [place] [address] 07/26/2024 9:00 EDT Office Visit [facility] Rheumatology & Immunology - [address] [address] Riri Seymour MD [address] [address] documented as of this encounter [...] 31.8 27.6 - 33.0 pg 07/05/2022 12:07 [facility] MCHC 35.4 32.8 - 36.4 gm/dL 07/05/2022 12:07 [facility] RDW-CV 12.2 <14.2 % 07/05/2022 12:07 [facility] RDW-SD 40.4 <46.0 fl 07/05/2022 12:07 [facility] PLT 178 141 - 377 K/cmm 07/05/2022 12:07 [facility] MPV 11.2 9.5 - 12.7 fl 07/05/2022 12:07 [facility] % Neutrophils 60.0 % 07/05/2022 12:07 [facility] % Lymphocytes 31.4 % 07/05/2022 12:07 [facility] % Monocytes 6.6 % 07/05/2022 12:07 [facility] % Eosinophils 1.1 % 07/05/2022 12:07 [facility] % Basophils 0.7 % 07/05/2022 12:07 [facility] % Immature Grans 0.2 % 07/06/19 12:07 [facility] Absolute Neutrophils 2.64 2.20 - 8.85 K/cmm 07/05/2022 12:07 [facility] Absolute Lymphocytes 1.38 1.09 - 3.30 K/cmm 07/05/2022 12:07 [facility] Absolute Monocytes 0.29 0.10 - 0.80 K/cmm 07/05/2022 12:07 [facility] Absolute Eosinophils 0.05 0.03 - 0.61 K/cmm 07/05/2022 12:07 [facility] ABS Basophils 0.03 0.01 - 0.11 K/cmm 07/05/2022 12:07 [facility] Absolute Immature Grans 0.01 0.00 - 0.06 K/cmm 07/05/2022 12:07 EDT [facility] Type of Differential: Auto 07/05/2022 12:07 [facility] Blood VENOUS BLOOD / Unknown Venipuncture / Unknown 07/05/2022 11:41 EDT 07/05/2022 11:56 EDT Riri Seymour MD PACKAGES & DNA P GORGE ORDERABLES [facility] [address] [place] [address] * COMPREHENSIVE METABOLIC PANEL (CMP) (07/05/2022 11:41 EDT) Sodium 142 136 - 145 mmol/L 07/05/2022 12:36 [facility] Potassium 4.3 3.5 - 5.0 mmol/L 07/05/2022 12:36 [facility] Chloride 103 96 - 110 mmol/L 07/05/2022 12:36 [facility] CO2 Total 32 22 - 32 mmol/L 07/05/2022 12:36 [facility] Glucose 98 70 - 100 mg/dL 07/05/2022 12:36 [facility] BUN 16 10 - 26 mg/dL 07/05/2022 12:36 [facility] Creatinine 1.17 0.66 - 1.25 mg/dL 07/05/2022 12:36 [facility] eGFR 71 >60 mL/min/1.7 3m2 07/05/2022 12:36 [facility] Total Protein 7.8 6.3 - 8.2 g/dL 07/05/2022 12:36 [facility] Albumin 4.5 3.4 - 4.9 g/dL 07/05/2022 12:36 [facility] Alkaline Phosphatase 89 38 - 126 U/L 07/05/2022 12:36 [facility] AST 36 15 - 46 U/L 07/05/2022 12:36 [facility] ALT 47 <50 U/L 07/05/2022 12:36 EDT [facility] Bilirubin, Total 0.7 <1.4 [...] BLOO D GAS ORDERABLES Performing Organization Address City/[facility]/ZIP Co de Phone Number [facility] [address] [place] [address] * SED RATE (07/05/2022 11:41 EDT) Sed Rate 2 0 - 20 mm/hr 07/05/2022 13:16 EDT [facility] Blood VENOUS BLOOD / Unknown Venipuncture / Unknown 07/05/2022 11:41 EDT 07/05/2022 11:56 EDT Riri Seymour MD HEMATOLOGY & PF4 ORDERABLES Performing Organization Address City/[facility]/ZIP Co de Phone Number [facility] [address] [place] [address] * C REACTIVE PROTEIN (07/05/2022 11:41 EDT) C-Reactive Protein <7.0 <10.0 mg/L 07/05/2022 12:36 EDT [facility] Blood VENOUS BLOOD / Unknown Venipuncture / Unknown 07/05/2022 11:41 EDT 07/05/2022 11:59 EDT Riri Seymour MD CHEMISTRY & BLOO D GAS ORDERABLES [facility] [address] [place] [address] documented in this encounter Visit Diagnoses Diagnosis Fibromyalgia Mylagia and myositis, unspecified 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
--- OUTSIDE RECORDS SUMMARY | 2023-12-02 11:23 | XMS_ITS | Clinical Summary ---
Author Organization [facility] Address [address] [place] [address] Care Team Providers Care Milk Drier Name Role Phone Maureen Lua VENUE COORDINATOR Primary Care Provider [phone] Allergies No known active allergies Medications Medication [...] Take 1 Tablet by mouth daily. Active hydrocodone-acetam inophen (NORCO) 5-325 mg per tablet Take 1 [...] Take 1 Tablet by mouth daily. Active hydroCHLOROthiazid e (HYDRODIURIL) 25 mg tablet Take 0.5 Tablets by mouth daily. Active etanercept (ENBREL SURECLICK) 50 mg/mL (1 mL) subcutaneous pen INJECT 50MG UNDER THE SKIN ONCE WEEKLY 12 mL 1 09/28/2023 Active sulfaSALAzine (AZULFIDINE) 500 mg EC tablet Take 1 tablet twice daily. 180 Tablet 3 11/22/2023 Active sulfaSALAzine (AZULFIDINE) 500 mg EC tablet Take 1 tablet twice daily for 2 weeks, then labs and then if normal increase to 2 tablets in AM and 1 tablet in PM. 90 Tablet 3 07/25/2023 4 Discontinued Active Problems Patient Care Coordination No te Formatting of this note migh t be different from the original. Patient has given permission for The to verbally discuss the following information with [...] Problem Noted Date Diagnosed Date Ankylosing spondylitis ([facility]) 09/23/2009 Cobalamin deficiency 09/23/2009 Hypertensive disorder 09/23/2009 Encounters Date Type Department Care Team Description 11/22/2023 Telephone [facility] Rheumatology & Immunology [address] [address] Rosa Beard, GINA Coordination Of Care 11/18/2023 Refill [facility] Rheumatology & Immunology [address] [address] Riri Seymour MD Medications Refill 11/03/2023 Lab Requisition [facility] Pathology & Laboratory Medicine [address] [address] Outr Resulting Lab, Provider 09/27/2023 Refill [facility] Rheumatology & Immunology [address] [address] Riri Seymour MD Medications Refill 09/14/2023 Telephone [facility] Rheumatology & Immunology [address] [address] Riri Seymour MD Medication Management; Labs Only from Last 3 Months Immunizations Name Administration [...] Info) Description 01/17/2024 9:00 EST Office Visit [facility] Rheumatology & Immunology [address] [phone] Butch Blair NP [address] [place] [phone] 07/26/2024 9:00 EDT Office Visit [facility] Rheumatology & Immunology [address] [phone] Riri Seymour MD [address] [place] [phone] Health Maintenance Due Date Last Done Comments RSV Immunization ( o r 60+ Years) (1 - 1-dose 60+ series) 2021 COVID-19 Vaccine ( - 2023- season) 2023 Hepatitis C Screen Completed 08/28/2019, 01/16/2019 Procedures Procedure Name Priority Date/Time Associated Diagnosis Comments CHRONIC HEPATITIS PROFILE, UNKNOWN TYPE Routine 11/02/2023 15:26 EDT HEPATITIS C AB W REFLEX TO HCV RNA BY PCR Routine 08/28/2019 9:00 EDT from Last 3 Months or Most Recently Relevant to Health Maintenance Results * CHRONIC HEPATITIS PROFILE, UNKNOWN TYPE (11/02/2023 15:26 EDT) Hep B Surface Ag Negative Negative 11/04/19 9:30 EDT [facility] Hep B Surface Ab, Quantitative <3.1 See Note mIU/mL 11/04/2023 9:30 EDT [facility] Comment: Reference Range for Hep B Surface Ab, Quant: Positive: >= 10.0 mIU/mL Negative: ??< 10.0 mIU/mL Patient is presumed to not be immune to infection with Hepatitis B Virus. Hep B Surface Ab, Qualitative Negative See Note 11/04/2023 9:30 EDT [facility] Comment: Reference Range for Hep B Surface Ab, Qual: Unvaccinated: ??Negative Vaccinated: ??Positive Hepatitis B Core Ab, Total Negative Negative 11/04/2023 9:30 EDT [facility] Hep C Antibody Negative Negative 11/04/2023 9:30 EDT [facility] Blood VENOUS BLOOD / Unknown 11/02/2023 15:26 EDT 11/03/2023 22:03 EDT Provider Outr Resulting Lab CHEMISTRY & BLOOD GAS ORDERABLES [facility] [address] [place] [address] * HEPATITIS C AB W REFLEX TO HCV RNA BY PCR (08/28/2019 9:00 EDT) Hep C Antibody Negative Negative 08/29/2019 10:46 EDT [facility] Blood VENOUS BLOOD / Unknown 08/28/2019 9:00 EDT 08/28/2019 16:05 EDT Provider Outr Resulting Lab CHEMISTRY & BLOOD GAS ORDERABLES [facility] [address] [place] [address] from Last 3 Months or Most Recently Relevant to Health Maintenance Care Teams Milk Drier Relationship Specialty Start Date End Date Maureen Lua NP [address] [place] [address] PCP - General 11/06/20
--- OUTSIDE RECORDS SUMMARY | 2023-12-02 11:23 | XMS_ITS | Encounter Summary ---
Author Organization [facility] Address [address] [place] [address] Care Team Providers Care Office Services Manager Name Role Phone Chanell Maureen García CAMERA PERSON Primary Care Provider [phone] Encounter Details Date Type Department Care Team (Late st Contact Info) Description 10/08/2021 13:30 EDT Phlebotomy Only [facility] ED Center 2 Phlebotomy [address] [place], [place] [phone] Catheter Finisher And Inspector, [facility] Phlebotomy Spondyloarthritis; Elevated ferritin; Other disorders of [...] Description 01/17/2024 9:00 EST Office Visit [facility] Rheumatology & Immunology [address] [phone] Butch Blair NP 111 [facility] [address] [place] [phone] 07/26/2024 9:00 EDT Office Visit [facility] Rheumatology & Immunology [address] [phone] Riri Seymour MD [address] [place] [phone] documented as of this encounter Procedures [...] 0.47 - 4.68 mIU/L 10/08/2021 15:[address] [facility] Blood VENOUS BLOOD / Unknown Venipuncture / Unknown 10/08/2021 13:20 EDT 10/08/2021 13:[address] [facility] - 10/08/2021 15:03 EDT The results of this assay can be falsely lowered due to the consumption of Biotin. Riri Seymour MD CHEMISTRY & BLOO D GAS ORDERABLES Performing Organization Address [facility] Co de Phone Number [facility] [address] [place] [address] * (ABNORMAL) VITAMIN B12 (10/08/2021 13:20 EDT) Vitamin B12 1,054(H) 211 - 911 pg/mL 10/08/2021 16:[address] [facility] Blood VENOUS BLOOD / Unknown Venipuncture / Unknown 10/08/2021 13:20 EDT 10/08/2021 13:55 EDT Riri Seymour MD CHEMISTRY & BLOO D GAS ORDERABLES Performing Organization Address [facility] Co de Phone Number [facility] [address] [place] [address] * VITAMIN D (25,OH) (10/08/2021 13:20 EDT) 25OH Vitamin D Tot 44 30 - 100 ng/mL 10/09/2021 10:[address] [facility] Comment: Vitamin D 25,OH Interpretive Ranges: Deficiency: ??<10.0 ng/mL Insufficiency: ??10.0 - 30.0 ng/mL Sufficiency: ??30.0 - 100.0 ng/mL Toxicity: ??>100.0 ng/mL Blood VENOUS BLOOD / Unknown Venipuncture / Unknown 10/08/2021 13:20 EDT 10/08/2021 13:55 EDT Riri Seymour MD CHEMISTRY & BLOO D GAS ORDERABLES [facility] [address] [place] [address] * HEREDITARY HEMOCHROMATOSIS HFE TEST (10/08/2021 13:20 EDT) Result Summary SEE NOTE 10/12/2021 14:22 EDT [facility] Comment:RESULT: COMPLEX (SEE RESULT AND INTERPRETATION) Result SEE NOTE 10/12/2021 14:22 EDT [facility] Comment: C282Y: One copy of the C282Y variant was identified. H63D: One copy of the H63D variant was identified. S65C: Not detected. Interpretation SEE NOTE 10/12/2021 14:22 EDT [facility] Comment: This result may be consistent [...] ADDITIONAL INFORMATION An online research opportunity called Ayla ([email or web address]), a project of [employer], is available for the recipient of this genetic test. This patient registry collects de-identified genetic and health information to advance the knowledge of genetic variants. [facility] is a collaborator of [employer]. This may not be applicable for all [...] allogenic donors will interfere with testing. Call [facility] for instructions for testing patients who [...] developed and its performance characteristics determined by [facility] in a manner consistent with CLIA requirements. This test has not been cleared or approved by the U.S. Food and Drug Administration. Specimen WB Whole Blood 10/12/2021 14:22 EDT [facility] Source Not Reported 10/12/2021 14:22 EDT [facility] Method SEE NOTE 10/12/2021 14:22 EDT [facility] Comment: Droplet Digital Polymerase Chain Reaction (ddPCR) [...] by Neema Cabrera, Ph.D. 10/12/2021 14:22 EDT [facility] Comment: Test Performed by: [address] [address] Rec Therapist: Vernon Moeller M.D. Ph.D.; CLIA# [id number] Blood VENOUS BLOOD / Unknown Venipuncture / Unknown 10/08/2021 13:20 EDT 10/08/2021 13:55 EDT Riri Seymour MD PACKAGES & DNA P GORGE ORDERABLES [address] [address] * SED RATE (10/08/2021 13:20 EDT) Sed Rate 2 0 - 20 mm/hr 10/08/2021 14:[address] [facility] Blood VENOUS BLOOD / Unknown Venipuncture / Unknown 10/08/2021 13:20 EDT 10/08/2021 13:55 EDT Riri Seymour MD HEMATOLOGY & PF4 ORDERABLES Performing Organization Address City/[facility]/ZIP Co de Phone Number [facility] [address] [place] [address] * (ABNORMAL) C REACTIVE PROTEIN (10/08/2021 13:20 EDT) C-Reactive Protein 21.9(H) <10.0 mg/L 10/08/2021 14:[address] [facility] Blood VENOUS BLOOD / Unknown Venipuncture / Unknown 10/08/2021 13:20 EDT 10/08/2021 13:55 EDT Riri Seymour MD CHEMISTRY & BLOO D GAS ORDERABLES Performing Organization Address City/[facility]/ZIP Co de Phone Number [facility] [address] [place] [address] documented in this encounter Visit Diagnoses Diagnosis Spondyloarthritis Spondylosis of unspecified site without mention of myelopathy Elevated ferritin Other abnormal blood chemistry 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 Vitamin D deficiency Unspecified vitamin D deficiency Malaise and fatigue Other malaise and fatigue Brain fog documented in this encounter Care Teams Office Services Manager Relationship Specialty Start Date End Date Maureen Lua NP [address] [place] [address] PCP - General 11/06/20 documented as of this encounter
--- OUTSIDE RECORDS SUMMARY | 2023-12-02 11:23 | XMS_ITS | Encounter Summary ---
Author Organization [facility] Address [address] [place] [address] Care Team Providers Care Furnace And Wash Equipment Operator Name Role Phone Chanell Maureen García HAIR DRESSER Primary Care Provider Reason for Visit * Reason Comments Medications Refill Encounter Details Date Type Department Care Team (Late st Contact Info) Description 03/08/2022 Refill [facility] Rheumatology & Immunology - [address] [phone] Riri Seymour MD [address] [place] [address], [address] [place] [phone] Medications Refill Social History Tobacco [...] Office Visit [facility] Rheumatology & Immunology [address] [phone] Butch Blair NP [address] [place] [phone] 07/26/2024 9:00 EDT Office Visit [facility] Rheumatology & Immunology [address] [phone] Riri Seymour MD [address] [place] [phone] documented as of this encounter Visit Diagnoses Not on filedocumented in this encounter Discontinued Medications Medication Sig Discontinue Reason Start Date End Da te ENBREL SURECLICK 50 mg/mL (1 mL) subcutaneous pen INJECT 1ML UNDER THE SKIN ONCE A WEEK 08/11/2021 03/09/2022 documented as of this encounter Care Teams Furnace And Wash Equipment Operator Relationship Specialty Start Date End Date Maureen Lua NP [address] [place] [address] PCP - General 11/06/20 documented as of this encounter
--- OUTSIDE RECORDS SUMMARY | 2023-12-02 11:23 | XMS_ITS | Encounter Summary ---
[place] [address] Care Team Providers Care Program Associate Name Role Phone Olaf Sahni MD Primary Care Provider + Encounter Details Date Type Department Care Team (Late st Contact Info) Description 06/27/2014 [place] [address] Amelie Hernandez [facility] [place] [address] Hematuria Social History Tobacco Use Types Packs/Day [...] unspecified documented in this encounter Care Teams Program Associate Relationship Specialty Start Date End Date Olaf Sahni MD [address] [place] [address] PCP - General 01/27/10 12/14/16 documented as of this encounter
--- OUTSIDE RECORDS SUMMARY | 2023-12-02 11:23 | XMS_ITS | Encounter Summary ---
Author Organization [facility] Address [address] [place] [address] Care Team Providers Care Core Checker Name Role Phone Maureen Lua NP Primary Care Provider [phone] Reason for Referral * Laboratory Services (Routine/Next Available) - New Request Specialty Diagnoses / Procedures Referred By Deann bermudez Referred To Contact Diagnoses Ankylosing spondylitis, unspecified site of spine ([facility]) Long-term use of high-risk medication Procedures SED RATE Riri Seymour MD [address] [place] [phone] Referral ID Status Reason Start Date Expiration Date V isits Requested Visits Authorized [id number] New Request 11/21/2023 1 1 * Laboratory Services (Routine/Next Available) - New Request Specialty Diagnoses / Procedures Referred By Deann bermudez Referred To Contact Diagnoses Ankylosing spondylitis, unspecified site of spine ([facility]) Long-term use of high-risk medication Procedures C REACTIVE PROTEIN Riri Seymour MD [address] [place] [phone] Referral ID Status Reason Start Date Expiration Date V isits Requested Visits Authorized [id number] New Request 11/21/2023 1 1 * Laboratory Services (Routine/Next Available) - New Request Specialty Diagnoses / Procedures Referred By Deann bermudez Referred To Contact Diagnoses Ankylosing spondylitis, unspecified site of spine ([facility]) Long-term use of high-risk medication Procedures COMPLETE BLOOD COUNT AND DIFFERENTIAL Riri Seymour MD [address] [place] [phone] Referral ID Status Reason Start Date Expiration Date V isits Requested Visits Authorized [id number] New Request 11/21/2023 1 1 * Laboratory Services (Routine/Next Available) - New Request Specialty Diagnoses / Procedures Referred By Deann bermudez Referred To Contact Diagnoses Ankylosing spondylitis, unspecified site of spine ([facility]) Long-term use of high-risk medication Procedures COMPREHENSIVE METABOLIC PANEL (CMP) Riri Seymour MD [address] [place] [phone] Referral ID Status Reason Start Date Expiration Date V isits Requested Visits Authorized [id number] New Request 11/21/2023 1 1 Reason for Visit * Reason Comments Medications Refill Encounter Details Date Type Department Care Team (Late st Contact Info) Description 11/18/2023 Refill [facility] Rheumatology & Immunology - [address] [phone] Riri Seymour MD [address] [place] [phone] Medications Refill Social History Tobacco Use [...] tablet twice daily. 180 Tablet 3 11/22/2023 documented in this encounter Miscellaneous Notes * Telephone Encounter - Sobeida Syed RN - 11/22/2023 0843 EDT Spoke with patient related to MD response. Patient states that he has not found sulfasalazine to beespecially helpful. Started back in July, but has not always been consistent about taking it. Would rather not continue low dose sulfasalazine at all. Has been taking Enbrel for years and does feel it is helpful as he reports having an increase in symptoms right before he is due for the next dose. Patient had taken Cymbalta in the past which he felt was helpful, but had bad headaches inhibiting continued use. Patient reports pain in bilateral arms, hands, knuckles, hips, lower back. No noted swelling, but pain is unbearable some days and completing activities of daily living is becoming increasingly difficult. Not sure what to do. Tried scheduling patient for sooner follow-up in early December, but patient needs relief sooner. Please advise. * Telephone Encounter - Riri Seymour MD - 11/22/2023 0443 EDT Hello, the LFTs are not that high, not 2 times Upper limit of normal. I just decreased one tablet. Let him continue at 1 tablet twice daily. Riri Seymour MD * Telephone Encounter - Alec Pelayo, RN - 11/21/2023 1647 EDT Standing lab orders, four, sent to [facility] at [phone]. * Telephone Encounter - Rosa Beard RN - 11/21/2023 7349 EDT We received refill request for Sulfasalazine. I called pt to discuss what dose he was on and to discuss labs. Apparently he went to [facility] to do labs you requested but they never received any orders from us. Standing lab orders printed. To be faxed to [facility]. Pt's wasn't certain her was taking Sulfasalazine right now as his PCP had ordered someLFTs and they were elevated.It scared him. We have labs from 11/02/23 under scans. I also called [facility] for the ones he just did on 11/16/23 and will scan into chart once received. Do you think Sulfasalazine should be stopped? Pt is going to see his PCP about the labs this week and has something scheduled in [facility] in [place] in a few weeks, also R/T his elevated LFTs but doesn't think it's another ULS. documented in this encounter Plan of Treatment Upcoming Encounters Date Type Department Care Team (Late st Contact Info) Description 01/17/2024 9:00 EST Office Visit [facility] Rhe[facility]ology [facility] [address] [place] [address] Butch Blair, SHEELA [address] [facility], [address] [place] [address] 07/26/2024 9:00 EDT Office Visit [facility] Rheumatology & [facility]ology [facility] [address] [place], [place] [address] Riri Seymour MD [address] [facility], [address] [place] [address] Scheduled Orders Name Type Priority Associated Diagnoses Orde r Schedule COMPREHENSIVE METABOLIC PANEL (CMP) Lab Routine Ankylosing spondylitis, unspecified site of spine ([facility]) Long-term use of high-risk medication Every 3-4 months for 4 Occurrences starting 11/21/2023 until 11/20/2024 COMPLETE BLOOD COUNT AND DIFFERENTIAL Lab Routine Ankylosing spondylitis, unspecified site of spine ([facility]) Long-term use of high-risk medication Every 3-4 months for 4 Occurrences starting 11/21/2023 until 11/20/2024 C REACTIVE PROTEIN Lab Routine Ankylosing spondylitis, unspecified site of spine ([facility]) Long-term use of high-risk medication Every 3-4 months for 4 Occurrences starting 11/21/2023 until 11/20/2024 SED RATE Lab Routine Ankylosing spondylitis, unspecified site of spine ([facility]) Long-term use of high-risk medication Every 3-4 months for 4 Occurrences starting 11/21/2023 until 11/20/2024 documented as of this encounter Visit Diagnoses Diagnosis Ankylosing spondylitis, unspecified site of spine ([facility] Primary Long-term use of high-risk medication documented in this encounter Discontinued Medications Medication Sig Discontinue Reason Start Date End Da te sulfaSALAzine (AZULFIDINE) 500 mg EC tablet Take 1 tablet twice daily for 2 weeks, then labs and then if normal increase to 2 tablets in AM and 1 tablet in PM. 07/25/2023 11/22/2023 documented as of this encounter Care Teams Core Checker Relationship Specialty Start Date End Date Maureen Lua NP [address] [place] [address] PCP - General 11/06/20 documented as of this encounter
--- OUTSIDE RECORDS SUMMARY | 2023-12-02 11:23 | XMS_ITS | Encounter Summary ---
Author Organization [facility] Address [address] [place] [address] Care Team Providers Care Licensed And Certified Midwife Name Role Phone Chanell Maureen García TUBE COATER Primary Care Provider [phone] Reason for Visit * Reason Onset Date Comments Prior Auth, Medication 06/03/2023 Enbrel Encounter Details Date Type Department Care Team (Late st Contact Info) Description 06/03/2023 Telephone [facility] Rheumatology & Immunology - [facility] [address] [place], [place] [phone] Riri Seymour MD [address] [facility], [address] [place] [address] Prior Auth, Medication (Enbrel) Social [...] Dates: 05/24/2023 until further notice Authorization Number: [id number] Required Pharmacy: No requirement [facility] YES Additional Info/Other Notes: Prior Authorization Submission Process - Urgent New Insurance Auth Medication: Enbrel Sureclick 50mg q7d Insurance: [employer] Insurance Type: Medicare Part D Date [place] Request Received: 06/07/2023 [place] Submission Date: 06/07/2023 CMM: [id number] Notes: Submitted by: Maria C Ford Phone: [phone] * Telephone Encounter - Shadia Tan MA - 06/03/2023 0737 EDT Covermymeds prior auth follow up [facility] [place] needed for enbrel sureclick 50mg/ml auto-injectors Seen 11/22/22 over telemedicine and has an appointment on 07/25/23 documented in this encounter Plan of Treatment Upcoming Encounters Date Type Department Care Team (Late st Contact Info) Description 01/17/2024 9:00 EST Office Visit [facility] Rheumatology & Immunology [address] [phone] Butch Blair NP [address] [place] [address], [address] [place] [address] 07/26/2024 9:00 EDT Office Visit [facility] Rheumatology & Immunology [address] [phone] Riri Seymour MD [address] [place] [address], [address] [place] [address] documented as of this encounter Visit Diagnoses Not on filedocumented in this encounter Care Teams Licensed And Certified Midwife Relationship Specialty Start Date End Date Maureen Lua NP [address] [place] [phone] PCP - General 11/06/20 documented as of this encounter
--- OUTSIDE RECORDS SUMMARY | 2023-12-02 11:23 | XMS_ITS | Encounter Summary ---
Author Organization [facility] Address [address] [place] [address] Care Team Providers Care Keyliner Name Role Phone Maureen Lua FIRE AND EXPLOSION INVESTIGATOR Primary Care Provider [phone] Reason for Visit * Reason Onset Date Comments Labs Only 10/14/2021 Follow-up 10/15/2021 Encounter Details Date Type Department Care Team (Late st Contact Info) Description 10/14/2021 Telephone [facility] Rheumatology & Immunology - [address] [phone] Riri Seymour MD [address] [facility], [address] [place] [address] Labs Only; Follow-up Social History [...] for Erasto asking that he go to [facility] and have creatinine drawn before MRI with contrast. Orderfaxed to [facility] and radiology made aware. * Telephone Encounter [...] is required. Or fax new order to [phone] Requesting this before the end of today. documented in this encounter Plan of Treatment Upcoming Encounters Date Type Department Care Team (Late st Contact Info) Description 01/17/2024 9:00 EST Office Visit [facility] Rheumatology & Immunology [address] [phone] Butch Blair NP [address] [facility], [address] [place] [phone] 07/26/2024 9:00 EDT Office Visit [facility] Rhe[facility] [address] [place] [address] Riri Seymour MD [address] [facility], [address] [place] [phone] documented as of this encounter Visit Diagnoses Diagnosis Spondyloarthritis- Primary Spondylosis of unspecified site without mention of myelopathy documented in this encounter Care Teams Keyliner Relationship Specialty Start Date End Date Maureen Lua NP [address] [place] [address] PCP - General 11/06/20 documented as of this encounter
--- OUTSIDE RECORDS SUMMARY | 2023-12-02 11:23 | XMS_ITS | Encounter Summary ---
Author Organization [facility] Address [address] [place] [address] Care Team Providers Care Clearance Center Manager Name Role Phone Chanell Maureen García CLEARANCE COORDINATOR Primary Care Provider [phone] Reason for Visit * Reason Comments Medications Refill Encounter Details Date Type Department Care Team (Late st Contact Info) Description 11/09/2022 Refill [facility] Rheumatology & Immunology - [address] [phone] Riri Seymour MD [address] [place] [address], [address] [place] [address] Medications Refill Social History Tobacco [...] Info) Description 01/17/2024 9:00 EST Office Visit [facility] Rheumatology & Immunology [address] [address] Butch Blair NP [address] [place] [phone] 07/26/2024 9:00 EDT Office Visit [facility] Rheumatology & Immunology [address] [address] Riri Seymour MD [address] [place] [phone] documented as of this encounter Visit Diagnoses Not on filedocumented in this encounter Discontinued Medications Medication Sig Discontinue Reason Start Date End Da te celecoxib (CELEBREX) 200 mg capsule Take 1 Capsule by mouth daily. 07/05/2022 11/10/2022 DULoxetine (CYMBALTA) 30 mg delayed release capsule Take 1 Capsule by mouth daily. 07/20/2022 11/10/2022 documented as of this encounter Care Teams Clearance Center Manager Relationship Specialty Start Date End Date Maureen Lua NP [address] [place] [address] PCP - General 11/06/20 documented as of this encounter
--- OUTSIDE RECORDS SUMMARY | 2023-12-02 11:23 | XMS_ITS | Encounter Summary ---
Author Organization [facility] Address [address] [place] [address] Care Team Providers Care Network Coordinator Name Role Phone Chanell Maureen García MOTORCYCLE REPAIRER Primary Care Provider [phone] Reason for Visit * Reason Comments Medications Refill Encounter Details Date Type Department Care Team (Late st Contact Info) Description 09/27/2023 Refill [facility] Rheumatology & Immunology - [address] [phone] Riri Seymour MD [address] [place] [address], [address] [place] [address] Medications Refill Social History Tobacco [...] Visit [facility] Rheumatology & Immunology [address] [phone] Butch Blair NP [address] [place] [phone] 07/26/2024 9:00 EDT Office Visit [facility] Rheumatology & Immunology [address] [phone] Riri Seymour MD [address] [place] [phone] documented as of this encounter Visit Diagnoses Not on filedocumented in this encounter Discontinued Medications Medication Sig Discontinue Reason Start Date End Da te etanercept (ENBREL SURECLICK) 50 mg/mL (1 mL) subcutaneous pen INJECT 50 MG UNDER THE SKIN ONCE WEEKLY 03/10/2023 09/28/2023 documented as of this encounter Care Teams Network Coordinator Relationship Specialty Start Date End Date Maureen Lua NP [address] [place] [address] PCP - General 11/06/20 documented as of this encounter
--- OUTSIDE RECORDS SUMMARY | 2023-12-02 11:23 | XMS_ITS | Encounter Summary ---
Author Organization [facility] [place] [address] Care Team Providers Care Nib Inspector Name Role Phone Olaf Sahni MD Primary Care Provider + Reason for Visit * Reason Comments Hematuria Encounter Details Date Type Department Care Team (Latest Contact Info) Description 07/26/2014 1:20 PM EDT [place] [address] Cj Napier MD [facility] [address] Hematuria, unspecified (Primary Dx) Social History Tobacco [...] and cola. You do not need to [id number] ounces of water today. Urination: You will likely have a small amount of blood in your urine for the next several days. This is normal; however, if you are passing large amounts of blood clots or are unable to void please call our office at [phone] before 5PM or [phone] after hours. Please call if: * you have copious blood in your urine * fevers greater than 101.3 F * you are unable to void The number for questions is [phone] before 5 PM weekdays and [phone] after 5 PM and weekends. Follow-up: 6 [...] and we'll obtain ultrasound/ CT results from [facility]. cystoscopy is normal today and will follow [...] Primary documented in this encounter Care Teams Nib Inspector Relationship Specialty Start Date End Date Olaf Sahni MD [address] [facility] [place] [address] PCP - General 01/27/10 12/14/16 documented as of this encounter
--- OUTSIDE RECORDS SUMMARY | 2023-12-02 11:23 | XMS_ITS | Encounter Summary ---
Author Organization [facility] Address [address] [place] [address] Care Team Providers Care Joint Cleaning Machine Operator Name Role Phone Chanell Maureen García PEGGER DOBBY LOOMS Primary Care Provider [phone] Reason for Visit * Reason Onset Date Comments Coordination Of Care 11/22/2023 Encounter Details Date Type Department Care Team (Late st Contact Info) Description 11/22/2023 Telephone [facility] Rheumatology & Immunology - [address] [address] Rosa Beard, RN Coordination Of Care Social History Tobacco Use Types Packs/Day [...] Miscellaneous Notes * Telephone Encounter - Rosa Beard, GINA - 11/22/2023 0902 EDT Spoke with pt R/T Sulfasalazine. Per Dr. Seymour, LFTs are not that high, he can continue. I just decreased one tablet. I understand he should be on 2 tablets in AM and 1 in PM, just remove one and have him take 1 tablet twice day. Pt states that he got up on Sulfasalazine to three tablets daily and it never seemed to work so he stopped it. Additionally he was concerned about his elevated LFTs that have been up since August. He is not overweight and he doesn't drink ETOH. Hasn't for 10 years. Wonders if Sulfasalazine contributed to elevated LFTs. He endorses hurting all the time and all over. The knuckles in his hands ache all day and pain goesup into his forearms. No obvious swelling. He's extremely tired all the time. Doesn't know what is safe to take. Recalls taking Celebrex which led to high BP.Has a NPV with a liver specialist in [place] coming up. Do you have any advice? I scanned his labs into chart from 11/16/23 today.LFTs and Ferritin ar elevated. documented in this encounter Plan of Treatment Upcoming Encounters Date Type Department Care Team (Late st Contact Info) Description 01/17/2024 9:00 EST Office Visit [facility] Rheumatology & Immunology - [address] [address] Butch Blair NP [address] [place] [phone] 07/26/2024 9:00 EDT Office Visit [facility] Rheumatology & Immunology [address] [phone] Riri Seymour MD [address] [place] [phone] documented as of this encounter Visit Diagnoses Not on filedocumented in this encounter Care Teams Joint Cleaning Machine Operator Relationship Specialty Start Date End Date Maureen Lua NP [address] [place] [address] PCP - General 11/06/20 documented as of this encounter
--- OUTSIDE RECORDS SUMMARY | 2023-12-02 11:23 | XMS_ITS | Encounter Summary ---
Author Organization [facility] Address [address] [place] [address] Care Team Providers Care Job Training Specialist Name Role Phone ChanellMaureen jimenez INDUSTRIAL EDUCATION INSTRUCTOR Primary Care Provider [phone] Reason for Referral * Radiology Services (Routine/Next Available) - Authorization Not Required Specialty Diagnoses / Procedures Referred By Contac t Referred To Contact Diagnoses Left elbow pain Procedures XR ELBOW LEFT 3 OR MORE VIEWS Riri Seymour MD [address] [place] [phone] [facility] Referral ID Status Reason Start Date Expiration Date Visits Requested Visits Authorized [id number] Authorization Not Required 10/08/2021 1 1 Reason for Visit * Radiology Services (Routine/Next Available) - Authorization Not Required Specialty Diagnoses / Procedures Referred By Deann bermudez Referred To Contact Diagnoses Left elbow pain Procedures XR ELBOW LEFT 3 OR MORE VIEWS Riri Seymour MD [address] [place] [phone] [facility] Referral ID Status Reason Start Date Expiration Date Visits Requested Visits Authorized [id number] Authorization Not Required 10/08/2021 1 1 Encounter Details Date Type Department Care Team (Latest Contact Info) Description 10/08/2021 12:47 EDT - 10/08/2021 23:59 EDT [facility] Radiology Xray Outpatient - [address] [address] Left elbow pain Discharge Disposition: Home or [...] Info) Description 01/17/2024 9:00 EST Office Visit [facility] Rheumatology & Immunology [address] [phone] Butch Blair NP [address] [place] [phone] 07/26/2024 9:00 EDT Office Visit [facility] Rheumatology & Immunology [address] [phone] Riri Seymour MD [address] [place] [phone] documented as of this encounter Procedures Procedure [...] arm documented in this encounter Care Teams Job Training Specialist Relationship Specialty Start Date End Date Maureen Lua, SHEELA [address] [place] [address] PCP - General 11/06/20 documented as of this encounter
--- OUTSIDE RECORDS SUMMARY | 2023-12-02 11:23 | XMS_ITS | Encounter Summary ---
Author Organization [facility] Address [address] [place] [address] Care Team Providers Care Acds Block 1 Operator Name Role Phone ChanellMaureen jimenez POSTAL SERVICE WINDOW CLERK Primary Care Provider [phone] Reason for Visit * Reason Onset Date Comments Prior Auth, Medication 02/23/2023 Encounter Details Date Type Department Care Team (Late st Contact Info) Description 02/23/2023 Telephone [facility] Rheumatology & Immunology - [address] [phone] Riri Seymour MD [address] [place] [address], [address] [place] [address] Prior Auth, Medication Social History [...] that is good through 02/23/24. Refill sentto [facility]. Patient verbalized understanding and is agreeable to plan. * Telephone Encounter - Vero Kinsey - 02/23/2023 1638 EST Prior Authorization Approval Medication: Enbrel 50 mg SureClick q7d Insurance Name:[employer] Insurance Type: Medicare Part D Approval Dates: 03/07/2022 - 02/23/2024 Authorization Number: none Required Pharmacy: No requirement [facility] able to fill?: YES Additional Info/Other Notes: pt fills with [facility] [address] [facility] [address] [facility] [id number] Prior Authorization Submission Process - Urgent Re-Auth Medication: Enbrel 50mg SureClick q7d Insurance: [employer] Insurance Type: Medicare Part D Date PA Request Received: 02/23/2023 PA Submission Date: 02/23/2023 CMM: [id number] Notes: Submitted by: Phone: [phone] * Telephone Encounter - Sobeida Syed RN [...] 01/17/2024 9:00 EST Office Visit [facility] Rheumatology & Immunology [address] [phone] Butch Blair NP [address] [place] [phone] 07/26/2024 9:00 EDT Office Visit [facility] Rheumatology & Immunology [address] [phone] Riri Seymour MD [address] [place] [phone] documented as of this encounter Visit Diagnoses Not on filedocumented in this encounter Discontinued Medications Medication Sig Discontinue Reason Start Date End Da te ENBREL SURECLICK 50 mg/mL (1 mL) subcutaneous pen INJECT 50 MG UNDER THE SKIN ONCE WEEKLY Reorder 09/01/2022 02/24/2023 documented as of this encounter Care Teams Acds Block 1 Operator Relationship Specialty Start Date End Date Maureen Lua NP [address] [place] [phone] PCP - General 11/06/20 documented as of this encounter
--- OUTSIDE RECORDS SUMMARY | 2023-12-02 11:23 | XMS_ITS | Encounter Summary ---
Author Organization [facility] Address [address] [place] [address] Care Team Providers Care Adult Ministries Director Name Role Phone Maureen Lua JAVASCRIPT FRONT END DEVELOPER Primary Care Provider [phone] Reason for Visit * Reason Comments Follow-up Encounter Details Date Type Department Care Team (Late st Contact Info) Description 07/25/2023 8:40 EDT Office Visit [facility] Rheumatology & Immunology - [address] [phone] Riri Seymour MD [address] [place] [address], [address] [place] [address] Ankylosing spondylitis, unspecified site of [...] tablet in PM. 90 Tablet 3 07/25/2023 11/22/2023 documented in this encounter Progress Notes * Riri Seymour MD - 07/25/2023 0840 EDT [facility] Department of Rheumatology Follow Up Visit PCP [...] never subsided. He transferred his care to Anthony, he was switched to adalimumab, was on it for about 6 months and later secukinumab for less than 1 year and most recently in 05/2019 while under the care of at [facility], he was switched back to etanercept. During [...] ca Cancer Father prostate Heart Disease Father CT at 54 Heart Disease Brother at age [...] Resource Strain: Medium Risk (11/26/2021) Received from [facility] Overall Financial Resource Strain (CARDIA) Difficulty of Paying Living Expenses: Somewhat hard Food Insecurity: Food Insecurity Present (11/26/2021) Received from [facility] Hunger Vital Sign Worried About Running Out of Food in the Last Year: Sometimes true Ran Out of Food in the Last Year: Not on file Transportation Needs: No Transportation Needs (11/26/2021) Received from [facility] PRAPARE - Transportation Lack of Transportation (Medical): [...] swelling Hand:Full ROM, no tenderness or swelling Emma and Taina's b/l Lower back:Full ROM Hip:Full [...] Diagnosis Hypertensive disorder Cobalamin deficiency Ankylosing spondylitis ([facility]) Assessment Plan: Ankylosing spondylitis He has not [...] MD Department of Rheumatology Attending Physician Pager: [phone] documented in this encounter Plan of Treatment Upcoming Encounters Date Type Department Care Team (Late st Contact Info) Description 01/17/2024 9:00 EST Office Visit [facility] Rheumatology & Immunology [address] [address] Butch Blair NP [address] [place] [phone] 07/26/2024 9:00 EDT Office Visit [facility] Rheumatology & Immunology [address] [address] Riri Seymour MD [address] [place] [phone] documented as of this encounter Results * SED RATE (07/25/2023 10:02 EDT) Sed Rate 2 0 - 20 mm/hr 07/25/2023 11:27 EDT [facility] Blood VENOUS BLOOD / Unknown Venipuncture / Unknown 07/25/2023 10:02 EDT 07/25/2023 10:49 EDT Riri Seymour MD HEMATOLOGY & PF4 ORDERABLES [facility] [address] [place] [address] * C REACTIVE PROTEIN (07/25/2023 10:02 EDT) C-Reactive Protein <5.0 <10.0 mg/L 07/25/2023 11:22 EDT [facility] Blood VENOUS BLOOD / Unknown Venipuncture / Unknown 07/25/2023 10:02 EDT 07/25/2023 10:49 EDT Riri Seymour MD CHEMISTRY & BLOO D GAS ORDERABLES [facility] [address] [place] [address] * COMPLETE BLOOD COUNT AND DIFFERENTIAL (07/25/2023 10:02 EDT) WBC 4.91 4.00 - 10.40 K/cmm 07/25/2023 10:54 [facility] RBC 5.07 4.36 - 5.78 M/cmm 07/25/2023 10:54 [facility] Hemoglobin 16.0 13.8 - 17.3 g/dL 07/25/2023 10:54 [facility] HCT 45.7 39.5 - 50.2 % 07/25/2023 10:54 [facility] MCV 90 81 - 95 fL 07/25/2023 10:54 [facility] MCH 31.6 27.6 - 33.0 pg 07/25/2023 10:54 [facility] MCHC 35.0 32.8 - 36.4 g/dL 07/25/2023 10:54 [facility] RDW-CV 12.4 <14.2 % 07/25/2023 10:54 [facility] RDW-SD 41.1 <46.0 fl 07/25/2023 10:54 [facility] PLT 175 141 - 377 K/cmm 07/25/2023 10:54 [facility] MPV 11.3 9.5 - 12.7 fL 07/25/2023 10:54 [facility] % Neutrophils 58.7 % 07/25/2023 10:54 [facility] % Lymphocytes 31.2 % 07/25/2023 10:54 [facility] % Monocytes 7.9 % 07/25/2023 10:54 [facility] % Eosinophils 1.8 % 07/25/2023 10:54 [facility] % Basophils 0.4 % 07/25/2023 10:54 [facility] % Immature Grans 0.0 % 07/25/19 10:54 EDT [facility] Absolute Neutrophils 2.88 2.20 - 8.85 K/cmm 07/25/2023 10:54 EDT [facility] Absolute Lymphocytes 1.53 1.09 - 3.30 K/cmm 07/25/2023 10:54 EDT [facility] Absolute Monocytes 0.39 0.10 - 0.80 K/cmm 07/25/2023 10:54 EDT [facility] Absolute Eosinophils 0.09 0.03 - 0.61 K/cmm 07/25/2023 10:54 T [facility] ABS Basophils 0.02 0.01 - 0.11 K/cm 07/25/2023 10:54 T [facility] Absolute Immature Grans 0.00 0.00 - 0.06 K/cmm 07/25/2023 10:54 T [facility] Type of Differential: Auto 07/25/2023 10:54 [facility] Blood VENOUS BLOOD / Unknown Venipuncture / Unknown 07/25/2023 10:02 EDT 07/25/2023 10:49 EDT Riri Seymour MD PACKAGES & DNA P ROBE ORDERABLES [facility] [address] [place] [address] * (ABNORMAL) COMPREHENSIVE METABOLIC PANEL (CMP) (07/25/2023 10:02 EDT) Sodium 144 136 - 145 mmol/L 07/25/2023 11:22 EDT [facility] Potassium 3.7 3.5 - 5.0 mmol/L 07/25/2023 11:22 T [facility] Chloride 101 96 - 110 mmol/L 07/25/2023 11:22 T [facility] CO2 Total 31 22 - 32 mmol/L 07/25/2023 11:22 T [facility] Glucose 95 70 - 99 mg/dl 07/25/2023 11:22 [facility] BUN 15 10 - 26 mg/dL 07/25/2023 11:22 [facility] Creatinine 1.05 0.66 - 1.25 mg/dL 07/25/2023 11:22 [facility] eGFR 81 >60 mL/min/1.7 3m2 07/25/2023 11:22 [facility] Total Protein 7.8 6.3 - 8.2 g/dL 07/25/2023 11:22 [facility] Albumin 4.7 3.4 - 4.9 g/dL 07/25/2023 11:22 [facility] Alkaline Phosphatase 104 38 - 126 U/L 07/25/2023 11:22 [facility] AST 40 15 - 46 U/L 07/25/2023 11:22 [facility] ALT 54(H) <50 U/L 07/25/2023 11:22 [facility] Bilirubin, Total 0.7 <1.4 mg/dL 07/25/19 11:22 [facility] Calcium 9.4 8.5 - 10.5 mg/dL 07/25/2023 11:22 [facility] Albumin/Globulin Ratio 1.5 1.0 - 2.5 07/25/2023 11:22 [facility] Anion Gap 12 5 - 14 mmol/L 07/25/2023 11:22 [facility] Blood VENOUS BLOOD / Unknown Venipuncture / Unknown 07/25/2023 10:02 EDT 07/25/2023 10:49 EDT Riri Seymour MD CHEMISTRY & BLOO D GAS ORDERABLES [facility] [address] [place] [address] documented in this encounter Visit [...] documented as of this encounter Care Teams Adult Ministries Director Relationship Specialty Start Date End Date Maureen Lua NP [address] [place] [address] PCP - General 11/06/20 documented as of this encounter
--- OUTSIDE RECORDS SUMMARY | 2023-12-02 11:23 | XMS_ITS | Encounter Summary ---
Author Organization [facility] Address [address] [place] [address] Care Team Providers Care Trash Truck Driver Name Role Phone Chanell Maureen García PRODUCT CONTROLLER Primary Care Provider [phone] Encounter Details Date Type Department Care Team (Late st Contact Info) Description 09/09/2022 Lab Requisition [facility] Pathology & Laboratory Medicine - [address] [address] Guillermo Reno MD [address] [place] [phone] Gastritis, unspecified, without bleeding; Epigastric pain; Gastro-esophageal [...] [facility] Rheumatology & Immunology [address] [address] Butch Blair NP [address] [place] [phone] 07/26/2024 9:00 EDT Office Visit [facility] Rheumatology & Immunology [address] [address] Riri Seymour MD [address] [place] [phone] documented as of this encounter Procedures [...] management options, if applicable. 09/10/2022 13:05 EDT [facility] Final Diagnosis A. STOMACH, ANTRUM, [...] intestinal metaplasia and dysplasia. 09/10/2022 13:05 EDT [facility] Attestation By the signature below, the attending physician certifies that they have 1) personally conducted a gross and/or microscopic examination of the described specimen(s), and/or personally interpreted the results of laboratory testing of the described specimen(s), and 2) personally rendered or confirmed the above diagnosis. 09/10/2022 13:05 [facility] at 1305 Clinical History Dx: Gastritis 09/10/2022 13:05 [facility] Gross Description A. Received in [...] x 0.1 cm. Submitted intact in C1. BRNADY DANGELO(ASCP) 09/09/2022 18:49 09/10/2022 13:05 T [facility] Performing Lab [facility] 13:05 T [facility] Scanned Images 09/10/2022 13:05 T [facility] Tissue ENTIRE ESOPHAGUS / Unknown 09/08/2022 8:55 EDT 09/09/2022 17:59 EDT Tissue specimen (specimen) SPECIMEN FROM STOMACH OBTAINED BY TOTAL GASTRECTOMY / Unknown 09/08/2022 8:55 EDT 09/09/2022 17:59 EDT Tissue specimen (specimen) ESOPHAGEAL STRUCTURE / Unknown 09/08/2022 8:55 EDT 09/09/2022 17:59 EDT Guillermo Reno MD PATHOLOGY ORDERA TONE [facility] [address] [place] [address] documented in this encounter Visit Diagnoses Diagnosis Gastritis, unspecified, without bleeding Epigastric pain Abdominal pain, epigastric Gastro-esophageal reflux disease without esophagitis Esophageal reflux documented in this encounter Care Teams Trash Truck Driver Relationship Specialty Start Date End Date Maureen Lua NP [address] [place] [address] PCP - General 11/06/20 documented as of this encounter
--- OUTSIDE RECORDS SUMMARY | 2023-12-02 11:23 | XMS_ITS | Encounter Summary ---
Author Organization [facility] Address [address] [place] [address] Care Team Providers Care Private Banker Name Role Phone ChanellMaureen jimenez ROTARY SWAGING MACHINE OPERATOR Primary Care Provider [phone] Reason for Visit * Reason Onset Date Comments Prior Auth, Medication 07/07/2022 Encounter Details Date Type Department Care Team (Late st Contact Info) Description 07/07/2022 Telephone [facility] Rheumatology & Immunology - [address] [address] Sobeida Syed RN Prior Auth, [...] duloxetine is not tolerated. Belen Guardado PharmD, [facility] Pharmacist Ambulatory Clinician - Rheumatology 07/23/2022 * Telephone Encounter - Belen Guardado RPH - 07/20/2022 1540 EDT Called patient to discuss trying duloxetine. Left a message asking for a callback. Belen Guardado PharmD, [facility] Pharmacist Ambulatory Clinician - Rheumatology 07/20/2022 * [...] - 07/07/2022 0823 EDT Received fax from [facility] in [facility] regarding the need for PA for Savella. Placed ePA and awaiting approval. documented in this encounter Plan of Treatment Upcoming Encounters Date Type Department Care Team (Late st Contact Info) Description 01/17/2024 9:00 EST Office Visit [facility] Rheumatology & Immunology - [facility] [address] [place], [place] [phone] Butch Blair NP [address] [facility], [address] [place] [phone] 07/26/2024 9:00 EDT Office Visit [facility] Rheumatology & Immunology - [facility] [address] [place] [address] iRri Kate MD [address] [facility], [address] [place] [phone] documented as of this encounter Visit Diagnoses Not on filedocumented in this encounter Discontinued Medications Medication Sig Discontinue Reason Start Date End Da te milnacipran 25 mg tablet Take 2 Tablets by mouth once daily. 07/05/2022 07/20/2022 documented as of this encounter Care Teams Private Banker Relationship Specialty Start Date End Date Maureen Lua NP [address] [place] [address] PCP - General 11/06/20 documented as of this encounter
--- OUTSIDE RECORDS SUMMARY | 2023-12-02 11:23 | XMS_ITS | Encounter Summary ---
Author Organization [facility] Address [address] [place] [address] Care Team Providers Care Boilerhouse Mechanic Name Role Phone Maureen Lua PLASTIC PARTS FABRICATOR Primary Care Provider [phone] Reason for Referral * Laboratory Services (Routine/Next Available) - New Request Specialty Diagnoses / Procedures Referred By Deann t Referred To Contact Diagnoses Ankylosing spondylitis, unspecified site of spine ([facility]) Encounter for long-term (current) use of medications Procedures COMPREHENSIVE METABOLIC PANEL (CMP) Riri Seymour MD [address] [place] [phone] Referral ID Status Reason Start Date Expiration Date V isits Requested Visits Authorized [id number] New Request 08/10/2023 1 1 * Laboratory Services (Routine/Next Available) - New Request Specialty Diagnoses / Procedures Referred By Deann bermudez Referred To Contact Diagnoses Ankylosing spondylitis, unspecified site of spine ([facility]) Encounter for long-term (current) use of medications Procedures COMPLETE BLOOD COUNT AND DIFFERENTIAL Riri Seymour MD [address] [place] [phone] Referral ID Status Reason Start Date Expiration Date V isits Requested Visits Authorized [id number] New Request 08/10/2023 1 1 * Laboratory Services (Routine/Next Available) - New Request Specialty Diagnoses / Procedures Referred By Deann bermudez Referred To Contact Diagnoses Ankylosing spondylitis, unspecified site of spine ([facility]) Encounter for long-term (current) use of medications Procedures SED RATE Riri Seymour MD [address] [place] [phone] Referral ID Status Reason Start Date Expiration Date V isits Requested Visits Authorized [id number] New Request 08/10/2023 1 1 * Laboratory Services (Routine/Next Available) - New Request Specialty Diagnoses / Procedures Referred By Deann bermudez Referred To Contact Diagnoses Ankylosing spondylitis, unspecified site of spine ([facility]) Encounter for long-term (current) use of medications Procedures C REACTIVE PROTEIN Riri Seymour MD [address] [place] [phone] Referral ID Status Reason Start Date Expiration Date V isits Requested Visits Authorized [id number] New Request 08/10/2023 1 1 Reason for Visit * Reason Onset Date Comments Orders (Non Pre-visit) 08/10/2023 Encounter Details Date Type Department Care Team (Late st Contact Info) Description 08/10/2023 Telephone [facility] Rheumatology & Immunology - [address] [phone] Riri Seymour MD [address] [place] [phone] Orders (Non Pre-visit) Social History Tobacco [...] Patient would like his labs done at [facility]. Future lab orders faxed to [facility]. * Telephone Encounter - Precious Beltre - 08/10/2023 1302 EDT Patient would like to get labs done at [facility], fax number is [phone]. Please reach out to discuss and follow up with patient when possible. documented in this encounter Plan of Treatment Upcoming Encounters Date Type Department Care Team (Late st Contact Info) Description 01/17/2024 9:00 EST Office Visit [facility] Rheumatology & Immunology - [address] [address] Butch Blair NP [address] [phone] 07/26/2024 9:00 EDT Office Visit [facility] Rheumatology & Immunology - [facility] [address] [place], [place] [address] Riri Seymour MD [address] [phone] Scheduled Orders Name Type Priority Associated Diagnoses Orde r Schedule C REACTIVE PROTEIN Lab Routine Ankylosing spondylitis, unspecified site of spine ([facility]) Encounter for long-term (current) use of medications Expected: 08/10/2023 (Approximate), Expires: 08/09/2024 SED RATE Lab Routine Ankylosing spondylitis, unspecified site of spine ([facility]) Encounter for long-term (current) use of medications Expected: 08/10/2023 (Approximate), Expires: 08/09/2024 COMPLETE BLOOD COUNT AND DIFFERENTIAL Lab Routine Ankylosing spondylitis, unspecified site of spine ([facility]) Encounter for long-term (current) use of medications Expected: 08/10/2023 (Approximate), Expires: 08/09/2024 COMPREHENSIVE METABOLIC PANEL (CMP) Lab Routine Ankylosing spondylitis, unspecified site of spine ([facility]) Encounter for long-term (current) use of medications Expected: 08/10/2023 (Approximate), Expires: 08/09/2024 documented as of this encounter Visit Diagnoses Diagnosis Ankylosing spondylitis, unspecified site of spine ([facility])- Primary Encounter for long-term (current) use of medications Encounter for long-term (current) use of other medications documented in this encounter Care Teams Boilerhouse Mechanic Relationship Specialty Start Date End Date Maureen Lua NP [address] [place] [phone] PCP - General 11/06/20 documented as of this encounter
--- OUTSIDE RECORDS SUMMARY | 2023-12-02 11:23 | XMS_ITS | Referral Summary ---
Author Organization [facility] Address [address] [place] [address] Care Team Providers Care Employer Relations Representative Name Role Phone Maureen Lua DIRECTOR FUNDRAISING Primary Care Provider [phone] Encounters Date Type Department Care Team Description 11/22/2023 Telephone [facility] Rheumatology & Immunology [address] [address] Rosa Beard RN Coordination Of Care 11/18/2023 Refill [facility] Rheumatology & Immunology [address] [address] Riri Seymour MD Medications Refill 11/03/2023 Lab Requisition [facility] Pathology & Laboratory Medicine [address] [address] Outr Resulting Lab, Provider 09/27/2023 Refill [facility] Rheumatology & Immunology [address] [address] Riri Seymour MD Medications Refill 09/14/2023 Telephone [facility] Rheumatology & Immunology [address] [address] Riri Seymour MD Medication Management; Labs Only from Last 3 Months Allergies No known [...] original. Patient has given permission for [facility] to verbally discuss the following [...] Problem Noted Date Diagnosed Date Ankylosing spondylitis ([facility]) 09/23/2009 Cobalamin deficiency 09/23/2009 Hypertensive disorder 09/23/2009 [...] Info) Description 01/17/2024 9:00 EST Office Visit [facility] Rheumatology & Immunology [address] [phone] Butch Blair NP 111 [facility], [address] [place] [address] 07/26/2024 9:00 EDT Office Visit [facility] Rheumatology & Immunology [address] [address] Riri Seymour MD 111 [facility], [address] [place] [address] Procedures Procedure Name Priority Date/Time Associated Diagnosis Comments CHRONIC HEPATITIS PROFILE, UNKNOWN TYPE Routine 11/02/2023 15:26 EDT HEPATITIS C AB W REFLEX TO HCV RNA BY PCR Routine 08/28/2019 9:00 EDT from Last 3 Months or Most Recently Relevant to Health Maintenance Results * CHRONIC HEPATITIS PROFILE, UNKNOWN TYPE (11/02/2023 15:26 EDT) Hep B Surface Ag Negative Negative 11/04/19 9:30 EDT [facility] Hep B Surface Ab, Quantitative <3.1 See Note mIU/mL 11/04/2023 9:30 EDT [facility] Comment: Reference Range for Hep B Surface Ab, Quant: Positive: >= 10.0 mIU/mL Negative: ??< 10.0 mIU/mL Patient is presumed to not be immune to infection with Hepatitis B Virus. Hep B Surface Ab, Qualitative Negative See Note 11/04/2023 9:30 EDT [facility] Comment: Reference Range for Hep B Surface Ab, Qual: Unvaccinated: ??Negative Vaccinated: ??Positive Hepatitis B Core Ab, Total Negative Negative 11/04/2023 9:30 EDT [facility] Hep C Antibody Negative Negative 11/04/2023 9:30 EDT [facility] Blood VENOUS BLOOD / Unknown 11/02/2023 15:26 EDT 11/03/2023 22:03 EDT Provider Outr Resulting Lab CHEMISTRY & BLOOD GAS ORDERABLES [facility] [address] [place], [place] [phone] * HEPATITIS C AB W REFLEX TO HCV RNA BY PCR (08/28/2019 9:00 EDT) Hep C Antibody Negative Negative 08/29/2019 10:46 EDT [facility] Blood VENOUS BLOOD / Unknown 08/28/2019 9:00 EDT 08/28/2019 16:05 EDT Provider Outr Resulting Lab CHEMISTRY & BLOOD GAS ORDERABLES [facility] [address] [place] [address] from Last 3 Months or Most Recently Relevant to Health Maintenance Care Teams Employer Relations Representative Relationship Specialty Start Date End Date Maureen Lua NP [address] [place], [place] [phone] PCP - General 11/06/20
--- OUTSIDE RECORDS SUMMARY | 2023-12-02 11:23 | XMS_ITS | Encounter Summary ---
Author Organization [facility] Address [address] [place] [address] Care Team Providers Care Senior Staff Accountant Name Role Phone Maureen Lua NP Primary Care Provider [phone] Reason for Referral * PT/OT/ST (Routine/Next Available) - New Request Specialty Diagnoses / Procedures [facility] Referred To Contact Diagnoses Ankylosing spondylitis, unspecified site of spine (HCC-CMS) Neck pain Fibromyalgia Riri Seymour MD [address] [place] [phone] Referral ID Status Reason Start Date Expiration Date Visits Requested Visits Authorized [id number] New Request Specialty Services Required 11/23/2022 1 1 Question Answer Reason for Request: history of ankylsoing spondylitis and fibromyaglia, referred for pool therapy if possible. Reason for Visit * Reason Comments Follow-up General check-in Encounter Details Date Type Department Care Team (Late st Contact Info) Description 11/22/2022 14:20 EDT Telemedicine [facility] Rheumatology & Immunology - [address] [address] Riri Seymour MD [address] [place] [phone] Ankylosing spondylitis, unspecified site of spine [...] Home Patient location state: Visit Location State: [place] The location of the provider: Office Provider location state: Visit Location State: [place] The following people and their roles were [...] Home Patient location state: Visit Location State: [place] The location of the provider: Office Provider location state: Visit Location State: [place] The following people and their roles were [...] never subsided. He transferred his care to [place], he was switched to adalimumab, was on it for about 6months and later secukinumab for less than 1 year and most recently in 05/2019 [address] the care of [address] Hickman at [facility], he was switched back to etanercept. During [...] [facility] Rheumatology & Immunology [address] [address] Butch Blair NP [address] [place] [phone] 07/26/2024 9:00 EDT Office Visit [facility] Rheumatology & Immunology [address] [phone] Riri Seymour MD [address] [place] [phone] Scheduled Referrals Name Type Priority Associated Diagnoses Order Schedule AMB CONS/FOLLOW UP PHYSICAL THERAPY - OUTSIDE OF NETWORK Outpatient Referral Routine/Next Available Ankylosing spondylitis, unspecified site of spine ([facility]) Neck pain Fibromyalgia Expected: 11/30/2022 (Approximate), Expires: 11/24/2023 documented as of this encounter Visit Diagnoses Diagnosis Ankylosing spondylitis, unspecified site of spine (HCC-CMS)- Primary Neck pain Cervicalgia Fibromyalgia Mylagia and myositis, unspecified documented in this encounter Care Teams Senior Staff Accountant Relationship Specialty Start Date End Date Maureen Lua NP [address] [place] [address] PCP - General 9/2/21 documented as of this encounter
--- OUTSIDE RECORDS SUMMARY | 2023-12-02 11:23 | XMS_ITS | Encounter Summary ---
Author Organization [facility] Address [address] [place] [address] Care Team Providers Care Bench Manager Name Role Phone Maureen Lua COSTUMED CHARACTER Primary Care Provider [phone] Reason for Visit * (Routine/Next Available) - Receiving Office to Obtain Authorization Specialty Diagnoses / Procedures Referred By Deann bermudez Referred To Contact Procedures MR OUTSIDE IMAGES [facility] Imaging, External Referral ID Status Reason Start Date Expiration Date Visits Requested Visits Authorized [id number] Receiving Office to Obtain Authorization 10/16/2021 1 1 Encounter Details Date Type Department Care Team (Latest Contact Info) Description 10/15/2021 - 10/15/2021 23:59 EDT Hospital Encounter [facility] Secondary Reads [place] Discharge Disposition: Home [...] Info) Description 01/17/2024 9:00 EST Office Visit [facility] Rheumatology & Immunology [address] [phone] Butch Blair NP 111 [facility], [address] [place] [address] 07/26/2024 9:00 EDT Office Visit [facility] Rheumatology & Immunology [address] [phone] Riri Seymour MD 111 [facility], [address] [place] [address] documented as of this encounter [...] on filedocumented in this encounter Care Teams Bench Manager Relationship Specialty Start Date End Date Maureen Lua NP [address] [place] [address] PCP - General 11/06/20 documented as of this encounter
--- OUTSIDE RECORDS SUMMARY | 2023-12-02 11:23 | XMS_ITS | Encounter Summary ---
Author Organization [facility] Address [address] [place] [address] Care Team Providers Care Cordwood Cutter Name Role Phone Chanell Maureen García FLOOR ATTENDANT Primary Care Provider [phone] Reason for Visit * Reason Onset Date Comments Results 10/16/2021 Encounter Details Date Type Department Care Team (Late st Contact Info) Description 10/16/2021 Telephone [facility] Rheumatology & Immunology - [address] [phone] Riri Seymour MD [address] [place] [address], [address] [place] [phone] Results Social History Tobacco Use Types Packs/Day [...] and lab results including genetic testing to [phone]. * Telephone Encounter - Riri Seymour MD [...] Info) Description 01/17/2024 9:00 EST Office Visit [facility] Rheumatology & Immunology - [address] [address] Butch Blair NP 111 [facility], [address] [place] [phone] 07/26/2024 9:00 EDT Office Visit [facility] Rheumatology & Immunology - [address] [phone] Riri Seymour MD [address] [phone] documented as of this encounter Visit Diagnoses Not on filedocumented in this encounter Care Teams Cordwood Cutter Relationship Specialty Start Date End Date Maureen Lua NP [address] [place] [address] PCP - General 11/06/20 documented as of this encounter
--- OUTSIDE RECORDS SUMMARY | 2023-12-02 11:23 | XMS_ITS | Encounter Summary ---
Author Organization [facility] Address [address] [place] [address] Care Team Providers Care Bronc Breaker Name Role Phone Maureen Lua CARDBOARD CUTTER Primary Care Provider [phone] Reason for Visit * Reason Comments Follow-up Encounter Details Date Type Department Care Team (Late st Contact Info) Description 07/05/2022 10:00 EDT Office Visit [facility] Rheumatology & Immunology - [address] [phone] Riri Seymour MD [address] [place] [address], [address] [place] [address] Fibromyalgia (Primary Dx); Spondyloarthritis Social [...] Riri Seymour MD - 07/05/2022 1000 EDT [facility] Department of Rheumatology Follow Up [...] never subsided. He transferred his care to [place], he was switched to adalimumab, was on it for about 6 months and later secukinumab for less than 1 year and most recently in 05/2019 while under the care of at [facility], he was switched back to etanercept. ??He [...] Cancer Father prostate ??? Heart Disease Father [place] at 54 ??? Heart Disease Brother at [...] disorder ??? Cobalamin deficiency ??? Ankylosing spondylitis ([facility]) Assessment Plan: History of ARGELIA/Axial spondyloarthritis [...] MD Department of Rheumatology Attending Physician Pager: [phone] documented in this encounter Plan of Treatment Upcoming Encounters Date Type Department Care Team (Late st Contact Info) Description 01/17/2024 9:00 EST Office Visit [facility] Rheumatology & Immunology [address] [address] Butch Blair NP [address] [place] [phone] 07/26/2024 9:00 EDT Office Visit [facility] Rheumatology & Immunology [address] [address] Riri Seymour MD [address] [place] [phone] documented as of this encounter Results * COMPLETE BLOOD COUNT AND DIFFERENTIAL (07/05/2022 11:41 EDT) WBC 4.40 4.00 - 10.40 K/cmm 07/05/2022 12:07 EDT [facility] RBC 4.90 4.36 - 5.78 M/cmm 07/05/2022 12:07 EDT [facility] Hemoglobin 15.6 13.8 - 17.3 gm/dL 07/05/2022 12:07 EDT [facility] HCT 44.1 39.5 - 50.2 % 07/05/2022 12:07 EDT [facility] MCV 90 81 - 95 fl 07/05/2022 12:07 EDT [facility] MCH 31.8 27.6 - 33.0 pg 07/05/2022 12:07 EDT [facility] MCHC 35.4 32.8 - 36.4 gm/dL 07/05/2022 12:07 [facility] RDW-CV 12.2 <14.2 % 07/05/2022 12:07 [facility] RDW-SD 40.4 <46.0 fl 07/05/2022 12:07 [facility] PLT 178 141 - 377 K/cmm 07/05/2022 12:07 [facility] MPV 11.2 9.5 - 12.7 fl 07/05/2022 12:07 [facility] % Neutrophils 60.0 % 07/05/2022 12:07 [facility] % Lymphocytes 31.4 % 07/05/2022 12:07 [facility] % Monocytes 6.6 % 07/05/2022 12:07 [facility] % Eosinophils 1.1 % 07/05/2022 12:07 [facility] % Basophils 0.7 % 07/05/2022 12:07 [facility] % Immature Grans 0.2 % 07/06/19 12:07 [facility] Absolute Neutrophils 2.64 2.20 - 8.85 K/cmm 07/05/2022 12:07 [facility] Absolute Lymphocytes 1.38 1.09 - 3.30 K/cmm 07/05/2022 12:07 [facility] Absolute Monocytes 0.29 0.10 - 0.80 K/cmm 07/05/2022 12:07 [facility] Absolute Eosinophils 0.05 0.03 - 0.61 K/cmm 07/05/2022 12:07 [facility] ABS Basophils 0.03 0.01 - 0.11 K/cmm 07/05/2022 12:07 [facility] Absolute Immature Grans 0.01 0.00 - 0.06 K/cmm 07/05/2022 12:07 [facility] Type of Differential: Auto 07/05/2022 12:07 [facility] Blood VENOUS BLOOD / Unknown Venipuncture / Unknown 07/05/2022 11:41 EDT 07/05/2022 11:56 EDT Riri Seymour MD PACKAGES & DNA P ZULYE ORDERABLES [facility] [address] [place] [address] * COMPREHENSIVE METABOLIC PANEL (CMP) (07/05/2022 11:41 EDT) Sodium 142 136 - 145 mmol/L 07/05/2022 12:36 T [facility] Potassium 4.3 3.5 - 5.0 mmol/L 07/05/2022 12:36 [facility] Chloride 103 96 - 110 mmol/L 07/05/2022 12:36 [facility] CO2 Total 32 22 - 32 mmol/L 07/05/2022 12:36 [facility] Glucose 98 70 - 100 mg/dL 07/05/2022 12:36 [facility] BUN 16 10 - 26 mg/dL 07/05/2022 12:36 [facility] Creatinine 1.17 0.66 - 1.25 mg/dL 07/05/2022 12:36 [facility] eGFR 71 >60 mL/min/1.7 3m2 07/05/2022 12:36 [facility] Total Protein 7.8 6.3 - 8.2 g/dL 07/05/2022 12:36 [facility] Albumin 4.5 3.4 - 4.9 g/dL 07/05/2022 12:36 [facility] Alkaline Phosphatase 89 38 - 126 U/L 07/05/2022 12:36 [facility] AST 36 15 - 46 U/L 07/05/2022 12:36 [facility] ALT 47 <50 U/L 07/05/2022 12:36 [facility] Bilirubin, Total 0.7 <1.4 mg/dL 07/06/19 12:36 EDT [facility] Calcium 9.3 8.5 - 10.5 mg/dL 07/05/2022 12:36 EDT [facility] Albumin/Globulin Ratio 1.4 1.0 - 2.5 07/05/2022 12:36 EDT [facility] Anion Gap 7 5 - 14 07/05/2022 12:36 EDT [facility] Blood VENOUS BLOOD / Unknown Venipuncture / Unknown 07/05/2022 11:41 EDT 07/05/2022 11:59 EDT Riri Seymour MD CHEMISTRY & BLOO D GAS ORDERABLES Performing Organization Address City/[facility]/ZIP Co de Phone Number [facility] [address] [place] [address] * SED RATE (07/05/2022 11:41 EDT) Sed Rate 2 0 - 20 mm/hr 07/05/2022 13:16 EDT [facility] Blood VENOUS BLOOD / Unknown Venipuncture / Unknown 07/05/2022 11:41 EDT 07/05/2022 11:56 EDT Riri Seymour MD HEMATOLOGY & PF4 ORDERABLES Performing Organization Address City/[facility]/ZIP Co de Phone Number [facility] [address] [place] [address] * C REACTIVE PROTEIN (07/05/2022 11:41 EDT) C-Reactive Protein <7.0 <10.0 mg/L 07/05/2022 12:36 EDT [facility] Blood VENOUS BLOOD / Unknown Venipuncture / Unknown 07/05/2022 11:41 EDT 07/05/2022 11:59 EDT Riri Seymour MD CHEMISTRY & BLOO D GAS ORDERABLES Performing Organization Address City/[facility]/ZIP Co de Phone Number [facility] [address] [place] [address] documented in this encounter Visit Diagnoses Diagnosis Fibromyalgia- Primary Mylagia and myositis, unspecified 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 07/05/2022 documented as of this encounter Care Teams Bronc Breaker Relationship Specialty Start Date End Date Maureen uLa NP [address] [place] [address] PCP - General 11/06/20 documented as of this encounter
--- OUTSIDE RECORDS SUMMARY | 2023-12-02 11:23 | XMS_ITS | Encounter Summary ---
Author Organization [facility] [place] [address] Care Team Providers Care Typist Name Role Phone Olaf Sahni MD Primary Care Provider + Reason for Visit * Reason Comments Hematuria Encounter Details Date Type Department Care Team (Late st Contact Info) Description 07/26/2014 1:00 PM EDT [place] [address] Cj Napier MD [facility] [place] [address] Hematuria, unspecified Discharge Disposition: Home Social History [...] Routine 07/26/2014 1:23 PM EDT Hematuria, unspecified NON-FINANCIAL PLANNER FINAL REPORT Routine 07/26/2014 1:16 PM EDT [...] Urine Dipstick Clear Clear CERNER MILLENNIUM Specific [place] Urine Automated 1.018 1.002 - 1.030 CERNER MILLENNIUM Color, Urine Dipstick Yellow Yellow CERNER MILLENNIUM RBC, Urine 5(H) 0 - 3 /HPF CERNER MILLENNIUM WBC, Urine 1 0 - 3 /HPF CERNER MILLENNIUM Urine specimen (specimen) 07/26/2014 1:23 PM EDT 07/26/2014 3:14 PM EDT Narrative Resulting Agency Comment Spec In Lab Cj Napier MD URINE ANNA MCGRATHMANNY FILIPE BROOKS * Non-Inpatient Care Manager Rn Final Report (07/26/2014 1:16 PM EDT) Diagnosis Discussion ? [facility] ? Provider: ?? KIKE NAPIER- Pt. Name: ?? ERASTO CHAPMAN ?PAULA Chavira ? Acc #: ?[id number] ?Pt. ? Col Date: ?? 07/26/2014 ? [...] Based Prep 1. 07/30/2014 1:21 PM EDT [facility] URINE SPECIMEN OBTAINED BY CLEAN CATCH PROCEDURE / Unknown 07/26/2014 1:16 PM EDT 07/26/2014 1:16 PM EDT Cj Napier MD PATHOLOGY/ CYTOLOGY ORDERABLES [facility] [place] [address] documented in this encounter Visit Diagnoses Diagnosis Hematuria, unspecified documented in this encounter Care Teams Typist Relationship Specialty Start Date End Date Olaf Sahni MD [address] [place] [address] PCP - General 01/27/10 12/14/16 documented as of this encounter
--- OUTSIDE RECORDS SUMMARY | 2023-12-02 11:23 | XMS_ITS | Encounter Summary ---
[place] [address] Care Team Providers Care Home Appraiser Name Role Phone Olaf Sahni MD Primary Care Provider + Encounter Details Date Type Department Care Team (Late st Contact Info) Description 06/27/2014 Orders [place] [address] Amelie Hernandez [facility] [place] [address] Social History Tobacco Use Types Packs/Day Years Used Date Smoking Tobacco: Never Assessed Sex and Gender Information Value Date Recorded Sex Assigned at Not on file Gender Identity Not on file Sexual Orientation Not on file documented as of this encounter Plan of Treatment Not on file documented as of this encounter Visit Diagnoses Not on filedocumented in this encounter Care Teams Home Appraiser Relationship Specialty Start Date End Date Olaf Sahni MD [address] [place] [address] PCP - General 01/27/10 12/14/16 documented as of this encounter
--- OUTSIDE RECORDS SUMMARY | 2023-12-02 11:23 | XMS_ITS | Encounter Summary ---
Author Organization [facility] Address [address] [place] [address] Care Team Providers Care Patent Lawyer Name Role Phone Chanell Maureen García CRYPTOLOGIC TECHNICIAN OPERATOR/ANALYST Primary Care Provider [phone] Encounter Details Date Type Department Care Team (Late st Contact Info) Description 11/03/2023 Lab Requisition [facility] Pathology & Laboratory Medicine - [address] [address] Outr Resulting Lab, Provider Social History Tobacco [...] Visit [facility] Rheumatology & Immunology [address] [phone] Butch Blair NP [address] [place] [phone] 07/26/2024 9:00 EDT Office Visit [facility] Rheumatology & Immunology [address] [phone] Riri Seymour MD [address] [place] [phone] documented as of this encounter Procedures Procedure Name Priority Date/Time Associated Diagnosis Comments CHRONIC HEPATITIS PROFILE, UNKNOWN TYPE Routine 11/02/2023 15:26 EDT documented in this encounter Results * CHRONIC HEPATITIS PROFILE, UNKNOWN TYPE (11/02/2023 15:26 EDT) Hep B Surface Ag Negative Negative 11/04/19 9:30 EDT [facility] Hep B Surface Ab, Quantitative <3.1 See Note mIU/mL 11/04/2023 9:30 EDT [facility] Comment: Reference Range for Hep B Surface Ab, Quant: Positive: >= 10.0 mIU/mL Negative: ??< 10.0 mIU/mL Patient is presumed to not be immune to infection with Hepatitis B Virus. Hep B Surface Ab, Qualitative Negative See Note 11/04/2023 9:30 EDT [facility] Comment: Reference Range for Hep B Surface Ab, Qual: Unvaccinated: ??Negative Vaccinated: ??Positive Hepatitis B Core Ab, Total Negative Negative 11/04/2023 9:30 EDT [facility] Hep C Antibody Negative Negative 11/04/2023 9:30 EDT [facility] Blood VENOUS BLOOD / Unknown 11/02/2023 15:26 EDT 11/03/2023 22:03 EDT Provider Outr Resulting Lab CHEMISTRY & BLOOD GAS ORDERABLES [facility] [address] [place], [place] [phone] documented in this encounter Visit Diagnoses Not on filedocumented in this encounter Care Teams Patent Lawyer Relationship Specialty Start Date End Date Maureen Lua NP [address] [place] [address] PCP - General 11/06/20 documented as of this encounter
--- OUTSIDE RECORDS SUMMARY | 2023-12-02 11:23 | XMS_ITS | Encounter Summary ---
Author Organization [facility] Address [address] [place] [address] Care Team Providers Care House Director Name Role Phone Chanell Maureen García WOOD ROOM SUPERVISOR Primary Care Provider [phone] Reason for Visit * Reason Onset Date Comments Medication Management 09/14/2023 Labs Only 09/14/2023 Encounter Details Date Type Department Care Team (Late st Contact Info) Description 09/14/2023 Telephone [facility] Rheumatology & Immunology - [address] [phone] Riri Seymour MD 111 [facility], [address] [place] [phone] Medication Management; Labs Only Social [...] Info) Description 01/17/2024 9:00 EST Office Visit [facility] Rheumatology & Immunology - [facility] [address] [place], [place] [address] Butch Blair NP 111 [facility], [address] [place] [phone] 07/26/2024 9:00 EDT Office Visit [facility] Rheumatology & Immunology - [facility] [address] [place] [address] Riri Seymour MD 111 [facility], [address] [place] [phone] documented as of this encounter Visit Diagnoses Not on filedocumented in this encounter Care Teams House Director Relationship Specialty Start Date End Date Maureen Lua NP [address] [place] [address] PCP - General 11/06/20 documented as of this encounter
--- OUTSIDE RECORDS SUMMARY | 2023-12-02 11:23 | XMS_ITS | Encounter Summary ---
Author Organization [facility] Address [address] [place] [address] Care Team Providers Care Gaming Commissioner Name Role Phone Maureen Lua CHURCH BUSINESS ADMINISTRATOR Primary Care Provider [phone] Reason for Referral * Consult (Urgent) - Authorized Specialty Diagnoses / Procedures Referred By [facility] t Referred To Contact Pharmacy Diagnoses Ankylosing spondylitis, unspecified site of spine ([facility]) Riri Seymour MD [address] [place] [phone] [facility] [address] [place] [address] Referral ID Status Reason Start Date Expiration Date Visits Requested Visits Authorized [id number] Authorized Specialty Services Required 3 1 1 [...] Encounter Details Date Type Department Care Team ([facility] Contact Info) Description 02/22/2023 Telephone [facility] Rheumatology & Immunology [address] [address] Riri Seymour MD [address] [place] [phone] Prior Auth, Medication Social History Tobacco Use [...] Sobeida Syed RN - 02/22/2023 0814 EST [id number] placed for Enbrel. * Telephone Encounter - [...] 01/17/2024 9:00 EST Office Visit [facility] Rheumatology & Immunology - [facility] [address] [place], [place] [address] Butch Blair, SHEELA [address] [place] [phone] 07/26/2024 9:00 EDT Office Visit [facility] Rheumatology & Immunology - [facility] [address] [place], [place] [address] Riri Seymour MD [address] [place] [phone] Scheduled Referrals Name Type Priority Associated Diagnoses Order Schedule AMB CONS/FOLLOW UP SPECIALTY PHARMACY Outpatient Referral Routine/Next Available Ankylosing spondylitis, unspecified site of spine ([facility]) Expected: 03/01/2023 (Approximate), Expires: 02/23/2024 documented as of this encounter Visit Diagnoses Diagnosis Ankylosing spondylitis, unspecified site of spine ([facility])- Primary documented in this encounter Care Teams Gaming Commissioner Relationship Specialty Start Date End Date Maureen Lua NP [address] [place] [address] PCP - General 11/06/20 documented as of this encounter
--- OUTSIDE RECORDS SUMMARY | 2023-12-02 11:23 | XMS_ITS | Encounter Summary ---
Author Organization [facility] Address [address] [place] [address] Care Team Providers Care Card Seller Name Role Phone Chanell Maureen García CROZER Primary Care Provider [phone] Reason for Visit * Reason Comments Medications Refill Encounter Details Date Type Department Care Team (Late st Contact Info) Description 03/09/2023 Refill [facility] Rheumatology & Immunology - [address] [phone] Riri Seymour MD [address] [place] [address], [address] [place] [phone] Medications Refill Social History Tobacco [...] Info) Description 01/17/2024 9:00 EST Office Visit [facility] Rheumatology & Immunology [address] [address] Butch Blair NP [address] [place] [phone] 07/26/2024 9:00 EDT Office Visit [facility] Rheumatology & Immunology [address] [phone] Riri Seymour MD [address] [place] [phone] documented as of this encounter Visit Diagnoses Not on filedocumented in this encounter Discontinued Medications Medication Sig Discontinue Reason Start Date End Da te etanercept (ENBREL SURECLICK) 50 mg/mL (1 mL) subcutaneous pen INJECT 1 ML INTO THE SKIN ONCE WEEKLY 02/24/2023 03/10/2023 documented as of this encounter Care Teams Card Seller Relationship Specialty Start Date End Date Maureen Lua NP [address] [place] [address] PCP - General 11/06/20 documented as of this encounter
--- OUTSIDE RECORDS SUMMARY | 2023-12-02 11:23 | XMS_ITS | Encounter Summary ---
Author Organization [facility] Address [address] [place] [address] Care Team Providers Care Microsoft Infrastructure Consultant Name Role Phone Chanell Maureen García OCCUPATIONAL SAFETY AND HEALTH MANAGER Primary Care Provider [phone] Encounter Details Date Type Department Care Team (Late st Contact Info) Description 07/25/2023 9:30 EDT Phlebotomy Only [facility] ED Center 2 Phlebotomy [address] [place], [place] [phone] Instructional Technologist, Acc Phlebotomy Ankylosing spondylitis, unspecified site of [...] Info) Description 01/17/2024 9:00 EST Office Visit [facility] Rheumatology & Immunology [address] [address] Butch Blair NP [address] [phone] 07/26/2024 9:00 EDT Office Visit [facility] Rheumatology & Immunology [address] [address] Riri Seymour MD [address] [phone] documented as of this encounter [...] 0 - 20 mm/hr 07/25/2023 11:27 EDT [facility] Blood VENOUS BLOOD / Unknown Venipuncture / Unknown 07/25/2023 10:02 EDT 07/25/2023 10:49 EDT Riri Seymour MD HEMATOLOGY & PF4 ORDERABLES Performing Organization Address City/[facility]/ZIP Co de Phone Number [facility] [address] [place], [place] [phone] * C REACTIVE PROTEIN (07/25/2023 10:02 EDT) C-Reactive Protein <5.0 <10.0 mg/L 07/25/2023 11:22 EDT [facility] Blood VENOUS BLOOD / Unknown Venipuncture / Unknown 07/25/2023 10:02 EDT 07/25/2023 10:49 EDT Riri Seymour MD CHEMISTRY & BLOO D GAS ORDERABLES Performing Organization Address [facility] Co de Phone Number [facility] [address] [place], [place] [phone] * COMPLETE BLOOD COUNT AND DIFFERENTIAL (07/25/2023 10:02 EDT) WBC 4.91 4.00 - 10.40 K/cmm 07/25/2023 10:54 EDT [facility] RBC 5.07 4.36 - 5.78 M/cmm 07/25/2023 10:54 T [facility] Hemoglobin 16.0 13.8 - 17.3 g/dL 07/25/2023 10:54 T [facility] HCT 45.7 39.5 - 50.2 % 07/25/2023 10:54 [facility] MCV 90 81 - 95 fL 07/25/2023 10:54 T [facility] MCH 31.6 27.6 - 33.0 pg 07/25/2023 10:54 [facility] MCHC 35.0 32.8 - 36.4 g/dL 07/25/2023 10:54 T [facility] RDW-CV 12.4 <14.2 % 07/25/2023 10:54 [facility] RDW-SD 41.1 <46.0 fl 07/25/2023 10:54 [facility] PLT 175 141 - 377 K/cmm 07/25/2023 10:54 [facility] MPV 11.3 9.5 - 12.7 fL 07/25/2023 10:54 [facility] % Neutrophils 58.7 % 07/25/2023 10:54 [facility] % Lymphocytes 31.2 % 07/25/2023 10:54 [facility] % Monocytes 7.9 % 07/25/2023 10:54 [facility] % Eosinophils 1.8 % 07/25/2023 10:54 [facility] % Basophils 0.4 % 07/25/2023 10:54 [facility] % Immature Grans 0.0 % 07/25/19 10:54 [facility] Absolute Neutrophils 2.88 2.20 - 8.85 K/cmm 07/25/2023 10:54 [facility] Absolute Lymphocytes 1.53 1.09 - 3.30 K/cmm 07/25/2023 10:54 [facility] Absolute Monocytes 0.39 0.10 - 0.80 K/cmm 07/25/2023 10:54 [facility] Absolute Eosinophils 0.09 0.03 - 0.61 K/cmm 07/25/2023 10:54 [facility] ABS Basophils 0.02 0.01 - 0.11 K/cm 07/25/2023 10:54 [facility] Absolute Immature Grans 0.00 0.00 - 0.06 K/cm 07/25/2023 10:54 [facility] Type of Differential: Auto 07/25/2023 10:54 [facility] Blood VENOUS BLOOD / Unknown Venipuncture / Unknown 07/25/2023 10:02 EDT 07/25/2023 10:49 EDT Riri Seymour MD PACKAGES & DNA P GORGE ORDERABLES [facility] [address] [place] [address] * (ABNORMAL) COMPREHENSIVE METABOLIC PANEL (CMP) (07/25/2023 10:02 EDT) Sodium 144 136 - 145 mmol/L 07/25/2023 11:22 [facility] Potassium 3.7 3.5 - 5.0 mmol/L 07/25/2023 11:22 [facility] Chloride 101 96 - 110 mmol/L 07/25/2023 11:22 [facility] CO2 Total 31 22 - 32 mmol/L 07/25/2023 11:22 [facility] Glucose 95 70 - 99 mg/dl 07/25/2023 11:22 [facility] BUN 15 10 - 26 mg/dL 07/25/2023 11:22 [facility] Creatinine 1.05 0.66 - 1.25 mg/dL 07/25/2023 11:22 [facility] eGFR 81 >60 mL/min/1.7 3m2 07/25/2023 11:22 [facility] Total Protein 7.8 6.3 - 8.2 g/dL 07/25/2023 11:22 [facility] Albumin 4.7 3.4 - 4.9 g/dL 07/25/2023 11:22 [facility] Alkaline Phosphatase 104 38 - 126 U/L 07/25/2023 11:22 [facility] AST 40 15 - 46 U/L 07/25/2023 11:22 [facility] ALT 54(H) <50 U/L 07/25/2023 11:22 [facility] Bilirubin, Total 0.7 <1.4 mg/dL 07/25/19 11:22 [facility] Calcium 9.4 8.5 - 10.5 mg/dL 07/25/2023 11:22 EDT [facility] Albumin/Globulin Ratio 1.5 1.0 - 2.5 07/25/2023 11:22 EDT [facility] Anion Gap 12 5 - 14 mmol/L 07/25/2023 11:22 EDT [facility] Blood VENOUS BLOOD / Unknown Venipuncture / Unknown 07/25/2023 10:02 EDT 07/25/2023 10:49 EDT Riri Seymour MD CHEMISTRY & BLOO D GAS ORDERABLES [facility] [address] [place] [address] documented in this encounter Visit Diagnoses Diagnosis Ankylosing spondylitis, unspecified site of spine ([facility]) At risk for side effect of medication documented in this encounter Care Teams Microsoft Infrastructure Consultant Relationship Specialty Start Date End Date Maureen Lua NP [address] [place] [address] PCP - General 11/06/20 documented as of this encounter
--- OUTSIDE RECORDS SUMMARY | 2023-12-02 11:23 | XMS_ITS | Encounter Summary ---
Author Organization [facility] Address [address] [place] [address] Care Team Providers Care Data Analyst Etl Developer Name Role Phone Chanell Maureen García BEAUTY THERAPIST Primary Care Provider [phone] Encounter Details Date Type Department Care Team (Late st Contact Info) Description 05/30/2023 Lab Requisition [facility] Pathology & Laboratory Medicine - [facility] [address] [place] [address] Gideon Gutierrez MD [address] [place] [phone] Encounter for screening for malignant neoplasm of [...] 01/17/2024 9:00 EST Office Visit [facility] Rheumatology & Immunology [address] [address] Butch Blair NP [address] [place] [phone] 07/26/2024 9:00 EDT Office Visit [facility] Rheumatology & Immunology [address] [address] Riri Seymour MD [address] [place] [phone] documented as of this encounter Procedures [...] management options, if applicable. 05/31/2023 12:20 EDT [facility] Final Diagnosis A. COLON, DESCENDING, POLYP, BIOPSY: - Fragments of tubular adenoma. B. COLON, SIGMOID, POLYP, BIOPSY: - Inflammatory polyp with overlying ulceration and granulation tissue. 05/31/2023 12:20 [facility] Attestation By the signature below, the attending physician certifies that they have 1) personally conducted a gross and/or microscopic examination of the described specimen(s), and/or personally interpreted the results of laboratory testing of the described specimen(s), and 2) personally rendered or confirmed the above diagnosis. 05/31/2023 12:20 [facility] at 1220 Clinical History Screening colonoscopy, family history of colon cancer 05/31/2023 12:20 EDT [facility] Gross Description A. Received [...] BRANDY MENDEZ(ASCP) 05/30/2023 17:14 05/31/2023 12:20 EDT [facility] Performing Lab [facility] 05/31/2023 12:20 EDT [facility] Scanned Images 05/31/2023 12:20 EDT [facility] Tissue SIGMOID COLON STRUCTURE / Unknown 05/30/2023 9:27 EDT 05/30/2023 16:26 EDT Tissue specimen (specimen) SIGMOID COLON STRUCTURE / Unknown 05/30/2023 9:27 EDT 05/30/2023 16:26 EDT Gideon Gutierrez MD PATHOLOGY ANNA PORTILLO [facility] [address] [place], [place] [phone] documented in this encounter Visit Diagnoses Diagnosis Encounter for screening for malignant neoplasm of colon Special screening for malignant neoplasms, colon documented in this encounter Care Teams Data Analyst Etl Developer Relationship Specialty Start Date End Date Maureen Lua NP [address] [place] [address] PCP - General 11/06/20 documented as of this encounter
--- OUTSIDE RECORDS SUMMARY | 2023-12-02 11:23 | XMS_ITS | Encounter Summary ---
Author Organization [facility] Address [address] [place] [address] Care Team Providers Care Hospital Security Officer Name Role Phone Maureen Lua CORE INSPECTOR Primary Care Provider [phone] Reason for Referral * Radiology Services (Routine/Next Available) - Authorization Not Required Specialty Diagnoses / Procedures Referred By Contac t Referred To Contact Diagnoses Spondyloarthritis Chronic back pain, unspecified back location, unspecified back pain laterality Procedures XR ENTIRE SPINE 2-3 VIEWS Riri Seymour MD [address] [place] [phone] [employer] Referral ID Status Reason Start Date Expiration Date Visits Requested Visits Authorized [id number] Authorization Not Required 10/08/2021 1 1 Reason for Visit * Radiology Services (Routine/Next Available) - Authorization Not Required Specialty Diagnoses / Procedures Referred By Deann t Referred To Contact Diagnoses Spondyloarthritis Chronic back pain, unspecified back location, unspecified back pain laterality Procedures XR ENTIRE SPINE 2-3 VIEWS Riri Seymour MD [address] [place] [phone] [employer] Referral ID Status Reason Start Date Expiration Date Visits Requested Visits Authorized [id number] Authorization Not Required 10/08/2021 1 1 Encounter Details Date Type Department Care Team (Latest Contact Info) Description 10/08/2021 12:47 EDT - 10/08/2021 23:59 EDT [facility] [place] [address] Spondyloarthritis; Chronic back pain, unspecified back location, [...] Info) Description 01/17/2024 9:00 EST Office Visit [facility] Rheumatology & Immunology [address] [phone] Butch Blair NP [address] [place] [phone] 07/26/2024 9:00 EDT Office Visit [facility] Rheumatology & Immunology [address] [phone] Riri Seymour MD [address] [place] [phone] documented as of this encounter Procedures Procedure [...] REGARDING THIS REPORT PLEASE CALL [facility] AT [phone] Narrative 10/10/2021 18:02 EDT PROCEDURE INFORMATION: Exam: [...] CONCERNS REGARDING THIS REPORT PLEASE CALL [facility] [phone] Riri Seymour MD IMG DIAGNOSTIC I MAGING ORDERABLES documented in this encounter Visit Diagnoses Diagnosis Spondyloarthritis Spondylosis of unspecified site without mention of myelopathy Chronic back pain, unspecified back location, unspecified back pain laterality documented in this encounter Care Teams Hospital Security Officer Relationship Specialty Start Date End Date Maureen Lua NP [address] [place] [address] PCP - General 11/06/20 documented as of this encounter
--- OUTSIDE RECORDS SUMMARY | 2023-12-02 11:23 | XMS_ITS | Encounter Summary ---
Author Organization [facility] Address [address] [place] [address] Care Team Providers Care Licensed Psychologist Director Name Role Phone Chanell Maureen García PROPOSAL DEVELOPMENT MANAGER Primary Care Provider [phone] Reason for Visit * Reason Comments Medications Refill Encounter Details Date Type Department Care Team (Late st Contact Info) Description 08/31/2022 Refill [facility] Rheumatology & Immunology - [address] [phone] Riri Seymour MD [address] [place] [address], Level [address] [place] [phone] Medications Refill Social History Tobacco [...] Visit [facility] Rheumatology & Immunology [address] [phone] Butch Blair NP [address] [place] [phone] 07/26/2024 9:00 EDT Office Visit [facility] Rheumatology & Immunology [address] [phone] Riri Seymour MD [address] [place] [phone] documented as of this encounter Visit Diagnoses Not on filedocumented in this encounter Discontinued Medications Medication Sig Discontinue Reason Start Date End Da te ENBREL SURECLICK 50 mg/mL (1 mL) subcutaneous pen INJECT 50 MG UNDER THE SKIN ONCE WEEKLY 03/09/2022 09/01/2022 documented as of this encounter Care Teams Licensed Psychologist Director Relationship Specialty Start Date End Date Maureen Lua NP [address] [place] [address] PCP - General 11/06/20 documented as of this encounter
--- OUTSIDE RECORDS SUMMARY | 2023-12-02 11:24 | XMS_ITS | Encounter Summary ---
Author Organization [facility] Address [address] [place] [address] Care Team Providers Care Minibus Driver Name Role Phone Maureen Lua SEX OFFENDER TREATMENT PROFESSIONAL Primary Care Provider [phone] Reason for Visit * Reason Comments Follow-up Encounter Details Date Type Department Care Team (Late st Contact Info) Description 11/06/2020 9:20 EDT Office Visit [facility] Rheumatology & Immunology - [address] [phone] Riri Seymour MD [address] [place] [address], [address] [place] [phone] Chronic pain syndrome (Primary Dx); Primary osteoarthritis involving multiple joints; Ankylosing spondylitis, unspecified site of spine ([facility]) Social History Tobacco Use Types Packs/Day [...] Riri Seymour MD - 11/06/2020 0920 EDT [facility] Department of Rheumatology [...] never subsided. He transferred his care to [place], he was switched to adalimumab, was on it for about 6 months and later secukinumab for less than 1 year and most recently in 05/2019 while under the care of at [facility], he was switched back to etanercept. He [...] Thinks he had a DXA scan through [facility] Review of Systems: I have reviewed [...] Cancer Father prostate ??? Heart Disease Father [place] at 54 ??? Heart Disease Brother at [...] Gatherings with Friends and Family: ??? Attends Nondenominational Services: ??? Active Member of Clubs or [...] Cobalamin deficiency ??? Ankylosing spondylitis ([facility]) Assessment Plan: # Ankylosing spondylitis. I discussed [...] the future. He last had one at [facility] in 2019 and per notes, did not [...] MD Department of Rheumatology Attending Physician Pager: [phone] documented in this encounter Plan of Treatment Upcoming Encounters Date Type Department Care Team (Late st Contact Info) Description 01/17/2024 9:00 EST Office Visit [facility] Rheumatology & Immunology [address] [phone] Butch Blair NP [address] [place] [phone] 07/26/2024 9:00 EDT Office Visit [facility] Rheumatology & Immunology [address] [phone] Riri Seymour MD [address] [place] [phone] documented as of this encounter Visit Diagnoses Diagnosis Chronic pain syndrome- Primary Primary osteoarthritis involving multiple joints Ankylosing spondylitis, unspecified site of spine ([facility]) documented in this encounter Care Teams Minibus Driver Relationship Specialty Start Date End Date Maureen Lua NP [address] [place] [address] PCP - General 11/06/20 documented as of this encounter
--- OUTSIDE RECORDS SUMMARY | 2023-12-02 11:24 | XMS_ITS | Encounter Summary ---
Author Organization [facility] Address [address] [place] [address] Care Team Providers Care Interactive Media Specialist Name Role Phone Maureen Lua LENS BLANK GAUGER Primary Care Provider Reason for Referral * Radiology Services (Routine) - Closed Specialty Diagnoses / Procedures Referred By Contac t Referred To Contact Diagnoses Ankylosing spondylitis, unspecified site of spine ([facility]) Low back pain, unspecified back pain laterality, unspecified chronicity, unspecified whether sciatica present Procedures XR SACROILIAC JOINTS 3 OR MORE VIEWS Riri Seymour MD [address] [place] [phone] Referral ID Status Reason Start Date Expiration Date Visits Re quested Visits Authorized [id number] Closed 08/29/2020 1 1 * Radiology Services (Routine) - Closed Specialty Diagnoses / Procedures Referred By Contac t Referred To Contact Diagnoses Pain in both knees, unspecified chronicity Procedures XR KNEE RIGHT 3 VIEWS Riri Seymour MD [address] [place] [phone] Referral ID Status Reason Start Date Expiration Date Visits Re quested Visits Authorized [id number] Closed 08/29/2020 1 1 * Radiology Services (Routine) - Closed Specialty Diagnoses / Procedures Referred By Contac t Referred To Contact Diagnoses Pain in both knees, unspecified chronicity Procedures XR KNEE LEFT 3 VIEWS Riri Seymour MD [address] [place] [phone] Referral ID Status Reason Start Date Expiration Date Visits Re quested Visits Authorized [id number] Closed 08/29/2020 1 1 * Radiology Services (Routine) - Closed Specialty Diagnoses / Procedures Referred By Contac t Referred To Contact Diagnoses Arthralgia of both hands Procedures XR HAND LEFT 1-2 VIEWS Riri Seymour MD [address] [place] [phone] Referral ID Status Reason Start Date Expiration Date Visits Re quested Visits Authorized [id number] Closed 08/29/2020 1 1 * Radiology Services (Routine) - Closed Specialty Diagnoses / Procedures Referred By Contac t Referred To Contact Diagnoses Ankylosing spondylitis, unspecified site of spine ([facility]) Procedures XR HAND RIGHT 1-2 VIEWS Riri Seymour MD [address] [place] [phone] Referral ID Status Reason Start Date Expiration Date Visits Re quested Visits Authorized [id number] Closed 08/29/2020 1 1 Reason for Visit * Radiology Services (Routine) - Closed Specialty Diagnoses / Procedures Referred By Contac t Referred To Contact Diagnoses Ankylosing spondylitis, unspecified site of spine (HCC-CMS) Procedures XR HAND RIGHT 1-2 VIEWS Riri Seymour MD [address] [place] [phone] Referral ID Status Reason Start Date Expiration Date Visits Re quested Visits Authorized [id number] Closed 08/29/2020 1 1 Encounter Details Date Type Department Care Team (Latest Contact Info) Description 11/06/2020 8:00 EDT - 11/06/2020 23:59 EDT Hospital Encounter [facility] [place]iology [place] [address] Ankylosing spondylitis, unspecified site of spine (HCC-CMS); [...] Office Visit [facility] Rheumatology & Immunology [address] [phone] Butch Blair NP [address] [place] [phone] 07/26/2024 9:00 EDT Office Visit [facility] Rheumatology & Immunology [address] [phone] Riri Seymour MD [address] [place] [phone] documented as of this encounter Procedures [...] EDT Ankylosing spondylitis, unspecified site of spine ([facility]) XR HAND LEFT 1-2 VIEWS Routine 11/06/2020 [...] Known ankylosing spondylitis, previous care at [facility]. Ordered for new baseline. COMPARISON: None. Procedure Note Elder Santiago, DO - 11/06/2020 EXAM/TECHNIQUE: XR SACROILIAC JOINTS 3 OR MORE VIEWS 11/06/2020 8:00 AM HISTORY: Known ankylosing spondylitis, previous care at [facility]. Ordered for newbaseline. COMPARISON: None. IMPRESSION FINDINGS [...] present documented in this encounter Care Teams Interactive Media Specialist Relationship Specialty Start Date End Date Maureen Lua NP [address] [place] [address] PCP - General 11/06/20 documented as of this encounter
--- OUTSIDE RECORDS SUMMARY | 2023-12-02 11:24 | XMS_ITS | Encounter Summary ---
Author Organization [facility] Address [address] [place] [address] Care Team Providers Care Movie Extra Name Role Phone Olaf Sahni MD Primary Care Provider U lisandraaildino Reason for Visit * Reason Comments Follow-up symptoms have not ch anged much since last visit. Continues to have pain in hands and neck Encounter Details Date Type Department Care Team (Latest Contact Info) Description 03/22/2013 9:30 EST Office Visit [facility] Rheumatology & Immunology - [address] [address] Steven Abrams MD Ankylosing spondylitis ([facility]) (Primary Dx); Encounter for long-term (current) use [...] Diagnoses Diagnosis 720.0 ANKYLOSING SPONDYLITIS[ICD-9-CM] V58.69 AFTERCARE RESIDENT ASSISTANT CNA USE MEDICATN[ICD-9-CM] documented in this encounter Ordered Prescriptions Prescription Sig Dispensed Refills Start Date End Da te meloxicam (MOBIC) 7.5 mg tabletIndications:Ankylos ing spondylitis ([facility]),Encounter for long-term (current) use of other medications Take 1 Tab by mouth daily. 90 Tab 3 03/22/2013 09/14/2013 etanercept (ENBREL) 50 mg/mL (0.98 mL) injectionIndications:Anky losing spondylitis ([facility]) Inject 1 mL into the skin [...] Cancer Father prostate ??? Heart Disease Father DC at 54 ??? Heart Disease Brother at [...] be retiring he transfer his care to [facility] or come back here to see Ms. Menendez. STEVEN ABRAMS MD 03/22/2013 9:46 documented in this encounter Plan of Treatment Upcoming Encounters Date Type Department Care Team (Late st Contact Info) Description 01/17/2024 9:00 EST Office Visit [facility] Rheumatology & Immunology - [address] [phone] Butch Blair NP 111 [facility] 5 [place] [phone] 07/26/2024 9:00 EDT Office Visit [facility] Rheumatology & Immunology - [facility] [address] [place], [place] [phone] Riri Seymour MD [address] [phone] documented as of this encounter Visit Diagnoses Diagnosis Ankylosing spondylitis ([facility])- Primary Ankylosing spondylitis Encounter for long-term (current) use of other medications documented in this encounter Discontinued Medications Medication Sig Discontinue Reason Start Date End Da te etanercept (ENBREL) 50 mg/mL (0.98 mL) injectionIndications:Anky losing spondylitis ([facility]) Inject 1 mL into the skin every 14 days. Reorder 09/19/2012 03/22/2013 meloxicam (MOBIC) 7.5 mg tabletIndications:Ankylos ing spondylitis ([facility]),Encounter for long-term (current) use of other medications Take 1 Tab by mouth daily. Reorder 03/23/2012 03/22/2013 documented as of this encounter Care Teams Movie Extra Relationship Specialty Start Date End Date Olaf Sahni MD PCP - General 09/20/08 11/05/20 documented as of this encounter
--- OUTSIDE RECORDS SUMMARY | 2023-12-02 11:24 | XMS_ITS | Encounter Summary ---
Author Organization [facility] Address [address] [place] [address] Care Team Providers Care Stoneworking Sander Name Role Phone Olaf Sahni MD Primary Care Provider U Maureen Harris NP Primary Care Provider [phone] Encounter Details Date Type Department Care Team (Late st Contact Info) Description 08/28/2019 Lab Requisition [facility] Pathology & Laboratory Medicine - [address] [id number] Outr Resulting Lab, Provider Social History Tobacco [...] [facility] Rheumatology & Immunology [address] [phone] Butch Blair, PUBLIC SCHOOL TEACHER [address] [place] [address], [address] [place] [phone] 07/26/2024 9:00 EDT Office Visit [facility] Rheumatology & Immunology [address] [phone] Riri Seymour MD 111 [facility], [address] [place] [phone] documented as of this encounter Procedures Procedure Name Priority Date/Time Associated Diagnosis Comments HEPATITIS C AB W REFLEX TO HCV RNA BY PCR Routine 08/28/2019 9:00 EDT HEPATITIS B SURFACE ANTIBODY Routine 08/28/2019 9:00 EDT documented in this encounter Results * HEPATITIS B SURFACE ANTIBODY (08/28/2019 9:00 EDT) Hep B Surface Ab, Quantitative <3.1 See Note mIU/mL 08/29/2019 9:35 EDT [facility] Comment: Reference Range for Hep B Surface Ab, Quant: Positive: >= 10.0 mIU/mL Negative: ??< 10.0 mIU/mL Patient is presumed to not be immune to infection with Hepatitis B Virus. Hep B Surface Ab, Qualitative Negative See Note 08/29/2019 9:35 EDT [facility] Comment: Reference Range for Hep B Surface Ab, Qual: Unvaccinated: ??Negative Vaccinated: ??Positive Blood VENOUS BLOOD / Unknown 08/28/2019 9:00 EDT 08/28/2019 16:05 EDT Provider Outr Resulting Lab CHEMISTRY & BLOOD GAS ORDERABLES Performing Organization Address [facility] Co de Phone Number [facility] [address] [place] [address] * HEPATITIS C AB W REFLEX TO HCV RNA BY PCR (08/28/2019 9:00 EDT) Hep C Antibody Negative Negative 08/29/2019 10:46 EDT [facility] Blood VENOUS BLOOD / Unknown 08/28/2019 9:00 EDT 08/28/2019 16:05 EDT Provider Outr Resulting Lab CHEMISTRY & BLOOD GAS ORDERABLES Performing Organization Address [facility] Co de Phone Number [facility] [address] [place] [address] documented in this encounter Visit Diagnoses Not on filedocumented in this encounter Care Teams Stoneworking Sander Relationship Specialty Start Date End Date Olaf Sahni MD PCP - General 09/20/08 11/05/20 Maureen Lua NP [address] [place] [address] PCP - General 11/06/20 documented as of this encounter
--- OUTSIDE RECORDS SUMMARY | 2023-12-02 11:24 | XMS_ITS | Encounter Summary ---
Author Organization [facility] Address [address] [place] [address] Care Team Providers Care Lubrication Servicer Name Role Phone Maureen Lua MAIL DELIVERY SUPERVISOR Primary Care Provider [phone] Reason for Visit * Reason Onset Date Comments Appointment Related 05/07/2021 Encounter Details Date Type Department Care Team (Late st Contact Info) Description 05/07/2021 Telephone [facility] Rheumatology & Immunology - [address] [phone] Riri Seymour MD [address] [place] [address], [address] [place] [phone] Appointment Related Social History Tobacco [...] Description 01/17/2024 9:00 EST Office Visit [facility] Rheumatology & Immunology [address] [phone] Butch Blair NP [address] [place] [phone] 07/26/2024 9:00 EDT Office Visit [facility] Rheumatology & Immunology [address] [phone] Riri Seymour MD [address] [place] [phone] documented as of this encounter Visit Diagnoses Not on filedocumented in this encounter Care Teams Lubrication Servicer Relationship Specialty Start Date End Date Maureen Lua NP [address] [place] [id number] PCP - General 11/06/20 documented as of this encounter
--- OUTSIDE RECORDS SUMMARY | 2023-12-02 11:24 | XMS_ITS | Encounter Summary ---
Author Organization [facility] Address [address] [place] [address] Care Team Providers Care Thread Twister Name Role Phone Olaf Sahni MD Primary Care Provider Gustavo aldana Encounter Details Date Type Department Care Team (Late st Contact Info) Description 06/19/2014 Orders Only [facility] Rheumatology Immunology [address] [phone] Ally Hicks[address] [address] Social History Tobacco Use Types Packs/Day Years [...] Office Visit [facility] Rheumatology & Immunology [address] [phone] Butch Blair NP 111 [facility] [place] [address] [place] [phone] 07/26/2024 9:00 EDT Office Visit [facility] Rheumatology & Immunology - [address] [address] Riri Seymour MD 111 [facility], [address] [place] [phone] documented as of this encounter Visit Diagnoses Not on filedocumented in this encounter Discontinued Medications Medication Sig Discontinue Reason Start Date End Da te etanercept (ENBREL) 50 mg/mL (0.98 mL) injectionIndications:An zoie spondylitis ([facility]) Inject 1 mL into the skin every 14 days Speciality pharmacy Duplicate Therapy 06/12/2014 06/19/2014 documented as of this encounter Care Teams Thread Twister Relationship Specialty Start Date End Date Olaf Sahni MD PCP - General 09/20/08 11/05/20 documented as of this encounter
--- OUTSIDE RECORDS SUMMARY | 2023-12-02 11:24 | XMS_ITS | Encounter Summary ---
Author Organization [facility] Address [address] [place] [address] Care Team Providers Care Laundry Operator Finishing Name Role Phone Chanell Maureen García ART TEACHER Primary Care Provider [phone] Reason for Visit * Reason Onset Date Comments Medications Refill 03/02/2021 Encounter Details Date Type Department Care Team (Late st Contact Info) Description 03/02/2021 Refill [facility] Rheumatology & Immunology - [address] [phone] Alanna Mccann MD [address] [place] [address], [address] [place] [phone] Medications Refill Social History Tobacco Use Types [...] Info) Description 01/17/2024 9:00 EST Office Visit [facility] Rheumatology & Immunology [address] [phone] Butch Blair NP [address] [place] [phone] 07/26/2024 9:00 EDT Office Visit [facility] Rheumatology & Immunology [address] [phone] Riri Seymour MD [address] [place] [phone] documented as of this encounter Visit Diagnoses Not on filedocumented in this encounter Discontinued Medications Medication Sig Discontinue Reason Start Date End Da te pregabalin (LYRICA) 50 mg capsule Take 1 capsule bedtime for 2 weeks, then increase to 2 capsules afterwards Reorder 12/29/2020 03/02/2021 documented as of this encounter Care Teams Laundry Operator Finishing Relationship Specialty Start Date End Date Maureen Lua NP [address] [place] [address] PCP - General 11/06/20 documented as of this encounter
--- OUTSIDE RECORDS SUMMARY | 2023-12-02 11:24 | XMS_ITS | Encounter Summary ---
Author Organization [facility] Address [address] [place] [address] Care Team Providers Care Wheat Buyer Name Role Phone Olaf Sahni MD Primary Care Provider Gustavo fryaildino Reason for Visit * Reason Onset Date Comments Results 10/15/2011 Encounter Details Date Type Department Care Team (Late st Contact Info) Description 10/15/2011 Telephone [facility] Rheumatology & Immunology - [facility] [address] [place] [address] Jaciel Clancy MD Results Social [...] for now. * Telephone Encounter - Tatyana Rnener RN - 10/15/2011 1003 EDT What would you like us to relay to the patient regarding x-rays? ( results in scan) * Telephone Encounter - Marivel Coates - 10/15/2011 0939 EDT Patient calling for results of xrays done on 09/[address] [facility], result in [facility]. documented in this encounter Plan of Treatment Upcoming Encounters Date Type Department Care Team (Late st Contact Info) Description 01/17/2024 9:00 EST Office Visit [facility] Rheumatology & Immunology [address] [phone] Butch Blair NP [address] [place] [phone] 07/26/2024 9:00 EDT Office Visit [facility] Rheumatology & Immunology [address] [phone] Riri Seymour MD [address] [place] [phone] documented as of this encounter Visit Diagnoses Not on filedocumented in this encounter Care Teams Wheat Buyer Relationship Specialty Start Date End Date Olaf Sahni MD PCP - General 09/20/08 11/05/20 documented as of this encounter
--- OUTSIDE RECORDS SUMMARY | 2023-12-02 11:24 | XMS_ITS | Encounter Summary ---
Author Organization [facility] Address [address] [place] [address] Care Team Providers Care Park Services Specialist Name Role Phone Olaf Sahni MD Primary Care Provider Gustavo aldana Encounter Details Date Type Department Care Team (Late st Contact Info) Description 09/18/2012 Phlebotomy Only [address] [address] Cut And Cover Line Worker, Outpatient Ankylosing spondylitis ([facility]); Encounter for long-term (current) use of [...] Description 01/17/2024 9:00 EST Office Visit [facility] Rheumatology & Immunology [address] [phone] Butch Bliar NP [address] [place] [phone] 07/26/2024 9:00 EDT Office Visit [facility] Rheumatology & Immunology [address] [phone] Riri Seymour MD [address] [place] [phone] documented as of this encounter Procedures Procedure Name Priority Date/Time Associated Diagnosis Comments DMARD PROFILE Routine 09/18/2012 9:01 EDT Ankylosing spondylitis ([facility]) Encounter for long-term (current) use of other medications DIFFERENTIAL Routine 09/18/2012 9:01 EDT SED RATE Routine 09/18/2012 9:01 EDT Ankylosing spondylitis ([facility]) COMPLETE BLOOD COUNT Routine 09/18/2012 9:01 EDT COMPLETE BLOOD COUNT AND DIFFERENTIAL Routine 09/18/2012 9:01 EDT Ankylosing spondylitis ([facility]) Encounter for long-term (current) use of other [...] & PF4 O RDERABLES Performing Organization Address [facility] Co de Phone Number [facility] [address] [place] [address] * HEMAGRAM (09/18/2012 9:01 EDT) WBC 6.60 [...] & PF4 O RDERATONE Performing Organization Address [facility] de Phone Number [facility] [address] [place] [address] * (ABNORMAL) SED. RATE:WESTERGREN (09/18/2012 9:01 EDT) Sed. Rate Nareshren 21(H) 0 - 20 mm/hr [facility] Blood specimen (specimen) 09/18/2012 9:01 EDT 09/18/2012 9:12 EDT Ayaka Dash PA-C HEMATOLOGY & PF4 O RDERABLES Performing Organization Address [facility] Co de Phone Number [facility] [address] [place] [address] * DMARD PROFILE (09/18/2012 9:01 EDT) Total Alkaline Phosphatase 90 38 - 126 U/L [facility] AST 28 15 - 46 U/L [facility] ALT 45 21 - 72 U/L [facility] Albumin 4.6 3.4 - 4.9 g/dl [facility] Creatinine 0.93 0.66 - 1.25 mg/dl [facility] GFR, Calculated >60 >60 ml/min/1.7 3m2 [facility] Blood specimen (specimen) 09/18/2012 9:01 EDT 09/18/2012 9:12 EDT Ayaka Dash PA-C CHEMISTRY & BLOOD GAS ORDERABLES [facility] [address] [place] [address] documented in this encounter Visit Diagnoses Diagnosis Ankylosing spondylitis ([facility]) Ankylosing spondylitis Encounter for long-term (current) use of other medications documented in this encounter Care Teams Park Services Specialist Relationship Specialty Start Date End Date Olaf Sahni MD PCP - General 09/20/08 11/05/20 documented as of this encounter
--- OUTSIDE RECORDS SUMMARY | 2023-12-02 11:24 | XMS_ITS | Encounter Summary ---
Author Organization [facility] Address [address] [place] [address] Care Team Providers Care Stitcher Standard Machine Name Role Phone Olaf Sahni MD Primary Care Provider U lisandraaildino Reason for Visit * Reason Comments Joint Pain all over, right knee , elbows, are the worse Back Pain feels like burning Encounter Details Date Type Department Care Team (Latest Contact Info) Description 03/23/2012 10:10 EST Office Visit [facility] Rheumatology & Immunology - [facility] [address] [place] [address] Steven Abrams MD Ankylosing spondylitis ([facility]) (Primary Dx); Encounter for long-term (current) [...] this encounter Patient Instructions * Patient Instructions* Steven Abrams MD - 03/23/2012 10:32 EST Try [...] meloxicam (MOBIC) 7.5 mg tabletIndications:Ankylosi ng spondylitis ([facility]),Encounter for long-term (current) use of other medications Take 1 Tab by mouth daily. 30 Tab 11 03/23/2012 03/22/2013 documented in this encounter Progress Notes * Steven Abrams MD - 03/23/2012 0937 EST Division [...] Sahni. 4. Follow up in 6 months. STEVEN ABRAMS MD 03/23/2012 10:15 documented in this encounter Plan of Treatment Upcoming Encounters Date Type Department Care Team (Late st Contact Info) Description 01/17/2024 9:00 EST Office Visit [facility] Rheumatology & Immunology [address] [phone] Butch Blair NP [address] [place] [phone] 07/26/2024 9:00 EDT Office Visit [facility] Rheumatology & Immunology [address] [phone] Riri Seymour MD [address] [place] [phone] documented as of this encounter Visit Diagnoses Diagnosis Ankylosing spondylitis ([facility])- Primary Ankylosing spondylitis Encounter for long-term (current) use of other medications documented in this encounter Discontinued Medications Medication Sig Discontinue Reason Start Date End Da te indomethacin (INDOCIN) 25 mg capsuleIndications:Ankylo sing spondylitis ([facility]) Take 1 Cap by mouth daily. Formulary change 12/28/2011 03/23/2012 documented as of this encounter Care Teams Stitcher Standard Machine Relationship Specialty Start Date End Date Olfa Sahni MD PCP - General 09/20/08 11/05/20 documented as of this encounter
--- OUTSIDE RECORDS SUMMARY | 2023-12-02 11:24 | XMS_ITS | Encounter Summary ---
Author Organization [facility] Address [address] [place] [address] Care Team Providers Care Waiter/Waitress Tourist Class Name Role Phone Maureen Lua LUMBER TRIPPER Primary Care Provider [phone] Reason for Visit * Reason Onset Date Comments Medications Refill 02/12/2021 Encounter Details Date Type Department Care Team (Late st Contact Info) Description 02/12/2021 Telephone [facility] Rheumatology & Immunology - [address] [phone] Riri Seymour MD [address] [place] [address], Level 5 [place] [address] Medications Refill Social History Tobacco [...] on medication list Pharmacy: [facility] Next Visit Date 05/07/2021 Last Office Visit11/06/2020 Out of Medication? NO Has pharmacy benefit insurance changed No If anything changed please list here Soheila Washburn 02/12/2021 11:06 documented in this encounter Plan of Treatment Upcoming Encounters Date Type Department Care Team (Late st Contact Info) Description 01/17/2024 9:00 EST Office Visit [facility] Rheumatology & Immunology [address] 006991 Butch Blair NP 111 [facility], [address] [place] [phone] 07/26/2024 9:00 EDT Office Visit [facility] Rheumatology & Immunology [facility] [address] [place], [place] [phone] Riri Seymour MD 111 [facility], [address] [place] [address] documented as of this encounter Visit Diagnoses Not on filedocumented in this encounter Discontinued Medications Medication Sig Discontinue Reason Start Date End Da te etanercept (ENBREL) 50 mg/mL (1 mL) injection Inject 1 mL into the skin once a week. Duplicate order 12/29/2020 02/12/2021 documented as of this encounter Care Teams Waiter/Waitress Tourist Class Relationship Specialty Start Date End Date Maureen Lua NP [address] [place] [address] PCP - General 11/06/20 documented as of this encounter
--- OUTSIDE RECORDS SUMMARY | 2023-12-02 11:24 | XMS_ITS | Encounter Summary ---
Author Organization [facility] Address [address] [place] [address] Care Team Providers Care Postal Transportation Clerk Name Role Phone Olaf Sahni MD Primary Care Provider U lisandraailable Reason for Visit * Reason Onset Date Comments Pre-visit Orders 11/03/2020 Encounter Details Date Type Department Care Team (Late st Contact Info) Description 11/03/2020 Telephone [facility] Rheumatology & Immunology - [address] [phone] Riri Seymour MD [address] [place] [address], Level 5 [place] [phone] Pre-visit Orders Social History Tobacco Use Types [...] the x-rays. * Telephone Encounter - Jaleesa Jaems - 11/03/2020 0847 EDT Patient's calling to [...] Info) Description 01/17/2024 9:00 EST Office Visit [facility] Rheumatology & Immunology [address] [phone] Butch Blair NP [address] [place] [phone] 07/26/2024 9:00 EDT Office Visit [facility] Rheumatology & Immunology [address] [address]201 Riri Seymour MD [address] [place] [phone] documented as of this encounter Visit Diagnoses Not on filedocumented in this encounter Care Teams Postal Transportation Clerk Relationship Specialty Start Date End Date Olaf Sahni MD PCP - General 09/20/08 11/05/20 documented as of this encounter
--- OUTSIDE RECORDS SUMMARY | 2023-12-02 11:24 | XMS_ITS | Encounter Summary ---
Author Organization [facility] Address [address] [place] [address] Care Team Providers Care Search Engine Optimization Manager Name Role Phone ChanellMaureen jimenez METAL BURNISHER Primary Care Provider [phone] Reason for Visit * Reason Onset Date Comments Prior Auth, Medication 08/19/2021 Encounter Details Date Type Department Care Team (Late st Contact Info) Description 08/19/2021 Telephone [facility] Rheumatology & Immunology - [address] [phone] Riri Seymour MD [address] [place] [address], [address] 5 [place] [address] Prior Auth, Medication Social History [...] Part D PA Request Received: 08/11/2021 Pharmacy: [facility] Notes: PA already on file with insurance, expires 01/21/2023. Referral closed documented in this encounter Plan of Treatment Upcoming Encounters Date Type Department Care Team (Late st Contact Info) Description 01/17/2024 9:00 EST Office Visit [facility] Rheumatology & Immunology [address] [phone] Butch Blair NP [address] [place] [phone] 07/26/2024 9:00 EDT Office Visit [facility] Rheumatology & Immunology [address] [phone] Riri Seymour MD [address] [place] [phone] documented as of this encounter Visit Diagnoses Not on filedocumented in this encounter Care Teams Search Engine Optimization Manager Relationship Specialty Start Date End Date Maureen Lua NP [address] [place] [address] PCP - General 11/06/20 documented as of this encounter
--- OUTSIDE RECORDS SUMMARY | 2023-12-02 11:24 | XMS_ITS | Encounter Summary ---
Author Organization [facility] Address [address] [place] [address] Care Team Providers Care Invasive Physician Name Role Phone Olaf Sahni MD Primary Care Provider U Maureen Harris NP Primary Care Provider [phone] Encounter Details Date Type Department Care Team (Late st Contact Info) Description 01/17/2019 Lab Requisition [facility] Pathology & Laboratory Medicine [address] [phone] Unknown, Provider, Social History Tobacco Use Types [...] [facility] Rheumatology & Immunology [address] [phone] Butch Blair, MD PSYCHIATRY 111 [facility], Level [address] [place] [phone] 07/26/2024 9:00 EDT Office Visit [facility] Rheumatology & Immunology [address] [address] Riri Seymour MD 111 [facility], [address] [place] [address] documented as of this encounter Procedures Procedure Name Priority Date/Time Associated Diagnosis Comments QUANTIFERON TB GOLD PLUS Routine 01/16/2019 8:43 EST documented in this encounter Results * QUANTIFERON TB GOLD PLUS (01/16/2019 8:43 EST) Pathologist [facility] Quantiferon Interpretation Negative Negative 01/19/2019 15:23 EST [facility] Comment: No interferon-gamma [...] Nil 0.00 IU/ml 01/20/20 19 15:23 EST [facility] TB2 Ag minus Nil 0.00 IU/mL 01/20/20 19 15:23 EST [facility] Blood VENOUS BLOOD / Unknown 01/16/2019 8:43 EST 01/17/2019 17:45 EST Narrative [facility] - 01/19/2019 15:23 EST Results were obtained with the Qiagen QuantiFERON-TB Gold Plus JOHN. Provider Unknown CHEMISTRY & BLOOD GA S ORDERABLES [facility] [address] [place] [address] documented in this encounter Visit Diagnoses Not on filedocumented in this encounter Care Teams Invasive Physician Relationship Specialty Start Date End Date Olaf Sahni MD PCP - General 09/20/08 11/05/20 Maureen Lua NP [address] [place] [address] PCP - General 11/06/20 documented as of this encounter
--- OUTSIDE RECORDS SUMMARY | 2023-12-02 11:24 | XMS_ITS | Encounter Summary ---
Author Organization [facility] Address [address] [place] [address] Care Team Providers Care Controller Coal Or Ore Name Role Phone Olaf Sahni MD Primary Care Provider U navailable Reason for Referral * Radiology Services (Routine) - Closed Specialty Diagnoses / Procedures Referred By Contac t Referred To Contact Diagnoses Ankylosing spondylitis, unspecified site of spine (HCC-CMS) Low back pain, unspecified back pain laterality, unspecified chronicity, unspecified whether sciatica present Procedures XR SACROILIAC JOINTS 3 OR MORE VIEWS Riri Seymour MD [address] [place] [phone] Referral ID Status Reason Start Date Expiration Date Visits Re quested Visits Authorized [id number] Closed 08/29/2020 1 1 * Radiology Services (Routine) - Closed Specialty Diagnoses / Procedures Referred By Contac t Referred To Contact Diagnoses Pain in both knees, unspecified chronicity Procedures XR KNEE RIGHT 3 VIEWS Riri Seymour MD [address] [place] [phone] Referral ID Status Reason Start Date Expiration Date Visits Re quested Visits Authorized [id number] Closed 08/29/2020 1 1 * Radiology Services (Routine) - Closed Specialty Diagnoses / Procedures Referred By Contac t Referred To Contact Diagnoses Pain in both knees, unspecified chronicity Procedures XR KNEE LEFT 3 VIEWS Riri Seymour MD [address] [place] [phone] Referral ID Status Reason Start Date Expiration Date Visits Re quested Visits Authorized [id number] Closed 08/29/2020 1 1 * Radiology Services (Routine) - Closed Specialty Diagnoses / Procedures Referred By Contac t Referred To Contact Diagnoses Arthralgia of both hands Procedures XR HAND LEFT 1-2 VIEWS Riri Seymour MD [address] [place] [phone] Referral ID Status Reason Start Date Expiration Date Visits Re quested Visits Authorized [id number] Closed 08/29/2020 1 1 * Radiology Services (Routine) - Closed Specialty Diagnoses / Procedures Referred By Contac t Referred To Contact Diagnoses Ankylosing spondylitis, unspecified site of spine ([facility]) Procedures XR HAND RIGHT 1-2 VIEWS Riri Seymour MD [address] [place] [phone] Referral ID Status Reason Start Date Expiration Date Visits Re quested Visits Authorized [id number] Closed 08/29/2020 1 1 Reason for Visit * Reason Comments New Patient Visit Joint Pain generalized pain, wo rse in hands, back, neck Back Pain * Referral (Routine) - Receiving Office to Obtain Authorization Specialty Diagnoses / Procedures Referred By Contac t Referred To Contact Rheumatology Diagnoses Ankylosing spondylitis of unspecified sites in spine ([facility]) Maureen Lua, SHEELA [address] [place] [address] [facility] Rheumatology [address] [place] [address] Referral ID Status Reason Start Date Expiration Date Visits Requested Visits Authorized [id number] Receiving Office to Obtain Authorization 1 1 Encounter Details Date Type Department Care Team (Late st Contact Info) Description 08/29/2020 9:00 EDT Office Visit [facility] Rheumatology & Immunology - [address] [address] Riri Seymour MD [address] [place] [address], [address] [place] [address] Arthralgia of both hands (Primary [...] Riri Seymour MD - 08/29/2020 0900 EDT [facility] Department of Rheumatology Initial Visit PCP [...] never subsided. He transferred his care to [facility], he was switched to adalimumab, was on it for about 6 months and later secukinumab for less than 1 year and most recently in 05/2019 while under the care of Dr. Hickman at [facility], he was switched back to etanercept. He [...] Cancer Father prostate ??? Heart Disease Father [place] at 54 ??? Heart Disease Brother at [...] Gatherings with Friends and Family: ??? Attends Buddhist Services: ??? Active Member of Clubs or [...] disorder ??? Cobalamin deficiency ??? Ankylosing spondylitis ([facility]) Assessment Plan: # Ankylosing spondylitis. I [...] He last had one at [facility] in 2019 and per notes, did not [...] MD Department of Rheumatology Attending Physician Pager: [phone] documented in this encounter Plan of Treatment Upcoming Encounters Date Type Department Care Team (Late st Contact Info) Description 01/17/2024 9:00 EST Office Visit [facility] Rheumatology & Immunology [address] [phone] Butch Blair NP [address] [place] [phone] 07/26/2024 9:00 EDT Office Visit [facility] Rheumatology & Immunology [address] [phone] Riri Seymour MD [address] [place] [phone] documented as of this encounter Results * [...] ankylosing spondylitis, previous care at [facility]. Ordered for new baseline. COMPARISON: None. Procedure Note Elder Santiago, DO - 11/06/2020 EXAM/TECHNIQUE: XR SACROILIAC JOINTS 3 OR MORE VIEWS 11/06/2020 8:00 AM HISTORY: Known ankylosing spondylitis, previous care at [facility]. Ordered for newbaseline. COMPARISON: None. IMPRESSION FINDINGS [...] ?? OA COMPARISON: None. Procedure Note Elder Santiaog, DO - 11/06/2020 EXAM/TECHNIQUE: XR KNEE LEFT [...] the second PIP joint. Riri Seymour MD [facility] MAGING ORDERABLES * XR HAND [...] the second PIP joint. Riri Seymour MD [facility] MAGING ORDERABLES documented in this [...] present Ankylosing spondylitis, unspecified site of spine ([facility]) Arthralgia of both hands Pain in both [...] 08/29/2020 added in this encounter Care Teams Controller Coal Or Ore Relationship Specialty Start Date End Date Olaf Sahni MD PCP - General 09/20/08 11/05/20 documented as of this encounter
--- OUTSIDE RECORDS SUMMARY | 2023-12-02 11:24 | XMS_ITS | Encounter Summary ---
Author Organization [facility] Address [address] [place] [address] Care Team Providers Care Safe And Vault Service Mechanic Name Role Phone Olaf Sahni MD Primary Care Provider Gustavo aldana Reason for Visit * Reason Comments Follow-up ankylosing spondylit is Joint Pain hands, knees Encounter Details Date Type Department Care Team (Latest Contact Info) Description 09/14/2013 9:30 EDT Office Visit [facility] Rheumatology & Immunology - [address] [address] Ayaka Dash, PA-C [address] [place] [address] Ankylosing spondylitis ([facility]) (Primary Dx); Encounter for long-term (current) use [...] FACILITY USE MEDICATN[ICD-9-CM] documented in this encounter Patient [...] 50 mg/mL (0.98 mL) injectionIndications:Ank ylosing spondylitis ([facility]) Inject 1 mL into the skin [...] Cancer Father prostate ??? Heart Disease Father [place] at 54 ??? Heart Disease Brother at [...] effective plan toadjust Enbrel next. Encounter for ocean transportation intermediary use of medication. Due for labs. Repeat [...] [facility] Rheumatology & Immunology - [address] 100331 Butch Blair NP [address] [place] [address], Level [address] [place] [phone] 07/26/2024 9:00 EDT Office Visit [facility] Rheumatology & Immunology - [address] [address] Riri Seymour MD 111 [facility], Level [address] [place] [phone] documented as of this encounter Visit Diagnoses Diagnosis Ankylosing spondylitis ([facility])- Primary Ankylosing spondylitis Encounter for long-term (current) use of other medications documented in this encounter Discontinued Medications Medication Sig Discontinue Reason Start Date End Da te rabeprazole (ACIPHEX) 20 mg tablet Take 20 mg by mouth daily. 09/14/2013 meloxicam (MOBIC) 7.5 mg tabletIndications:Ankylos ing spondylitis ([facility]),Encounter for long-term (current) use of other medications Take 1 Tab by mouth daily. Dose adjustment 03/22/2013 09/14/2013 etanercept (ENBREL) 50 mg/mL (0.98 mL) injectionIndications:Anky losing spondylitis ([facility]) Inject 1 mL into the skin every 14 days. Reorder 09/04/2013 09/14/2013 documented as of this encounter Historical Medications * This list may reflect changes made after this encounter. Medication Sig Dispensed Refills Start Date End Date dexlansoprazole (DEXILANT) 60 mg capsule Take 1 Capsule by mouth daily. added in this encounter Care Teams Safe And Vault Service Mechanic Relationship Specialty Start Date End Date Olaf Sahni MD PCP - General 09/20/08 11/05/20 documented as of this encounter
--- OUTSIDE RECORDS SUMMARY | 2023-12-02 11:24 | XMS_ITS | Encounter Summary ---
Author Organization [facility] Address [address] [place] [address] Care Team Providers Care Beef Tagger Name Role Phone Olaf Sahni MD Primary Care Provider U Maureen Harris NP Primary Care Provider Encounter Details Date Type Department Care Team (Late st Contact Info) Description 01/16/2019 Lab Requisition [facility] Pathology & Laboratory Medicine [address] [address] Unknown, Provider, Social History Tobacco Use Types [...] Info) Description 01/17/2024 9:00 EST Office Visit [facility] Rheumatology & Immunology [address] [phone] Butch Blair, SENIOR CORPORATE RECRUITER 111 [facility], [address] [place] [phone] 07/26/2024 9:00 EDT Office Visit [facility] Rheumatology & Immunology [address] [address] Riri Seymour MD 111 [facility], [address] [place] [address] documented as of this encounter Procedures Procedure Name Priority Date/Time Associated Diagnosis Comments HIV 1/2 ANTIGEN AND ANTIBODY, 4TH GENERATION Routine 01/16/2019 8:43 EST documented in this encounter Results * HIV 1/2 ANTIGEN AND ANTIBODY, 4TH GENERATION (01/16/2019 8:43 EST) HIV 1 and 2 Antibody/p24 Antigen, 4th Generation Negative Negative 01/17/2019 14:[address] [facility] Comment: If acute HIV-1 infection is suspected in a high risk ??patient, submit plasma specimen for HIV-1 RNA quantitation test. Fourth Generation assay performed on the Siemens Centaur. Blood VENOUS BLOOD / Unknown Non-Lab Collect / Unknown 01/16/2019 8:43 EST 01/16/2019 22:40 EST Provider Unknown IMMUNOLOGY AND SEROL TONY ORDERABLES [facility] [address] [place] [address] documented in this encounter Visit Diagnoses Not on filedocumented in this encounter Care Teams Beef Tagger Relationship Specialty Start Date End Date Olaf Sahni MD PCP - General 09/20/08 11/05/20 Maureen Lua NP [address] [place] [address] PCP - General 11/06/20 documented as of this encounter
--- OUTSIDE RECORDS SUMMARY | 2023-12-02 11:24 | XMS_ITS | Encounter Summary ---
Author Organization [facility] Address [address] [place] [address] Care Team Providers Care Cardiac Cath Technologist Name Role Phone Chanell Maureen García FILLER MACHINE OPERATOR Primary Care Provider [phone] Reason for Visit * Reason Onset Date Comments Medications Refill 12/29/2020 Encounter Details Date Type Department Care Team (Late st Contact Info) Description 12/29/2020 Refill [facility] Rheumatology & Immunology - [address] [phone] Riri Seymour MD [address] [place] [address], Level [address] [place] [address] Medications Refill Social History Tobacco [...] (0.98 mL) injection [facility] - [address]?[phone] Next Visit Date 05/07/2021 Last Office Visit11/06/2020 Out of Medication? No Jaleesa James 12/29/2020 11:43 documented in this encounter Plan of Treatment Upcoming Encounters Date Type Department Care Team (Late st Contact Info) Description 01/17/2024 9:00 EST Office Visit [facility] Rheumatology & Immunology [address] 474[address] Butch Blair NP [address] [place] [address], [address] [place] [phone] 07/26/2024 9:00 EDT Office Visit [facility] Rheumatology & Immunology - [address] [address] Riri Seymour MD [address] [place] [address], [address] [place] [phone] documented as of this encounter Visit Diagnoses [...] documented as of this encounter Care Teams Cardiac Cath Technologist Relationship Specialty Start Date End Date Maureen Lua NP [address] [place] [address] PCP - General 11/06/20 documented as of this encounter
--- OUTSIDE RECORDS SUMMARY | 2023-12-02 11:24 | XMS_ITS | Encounter Summary ---
Author Organization [facility] Address [address] [place] [address] Care Team Providers Care Air Marshal Name Role Phone Olaf Sahni MD Primary Care Provider Gustavo aldana Encounter Details Date Type Department Care Team (Late st Contact Info) Description 09/04/2020 Orders Only [facility] Rheumatology Immunology [address] [address] Rosa Beard RN Social History [...] 01/17/2024 9:00 EST Office Visit [facility] Rheumatology & Immunology [address] [phone] Butch Blair, SHEELA 111 [facility] [address] [place] [address] 07/26/2024 9:00 EDT Office Visit [facility] Rheumatology & Immunology - [facility] [address] [place] [address] Riri Seymour MD [address] [phone] documented as of this encounter Visit Diagnoses Not on filedocumented in this encounter Care Teams Air Marshal Relationship Specialty Start Date End Date Olaf Sahni MD PCP - General 09/20/08 11/05/20 documented as of this encounter
--- OUTSIDE RECORDS SUMMARY | 2023-12-02 11:24 | XMS_ITS | Encounter Summary ---
Author Organization [facility] Address [address] [place] [address] Care Team Providers Care Digital Product Specialist Name Role Phone Olaf Sahni MD Primary Care Provider U Maureen Harris NP Primary Care Provider [phone] Encounter Details Date Type Department Care Team (Late st Contact Info) Description 04/10/2019 Lab Requisition [facility] Pathology & Laboratory Medicine [address] [phone] Unknown, Provider, Social History Tobacco Use Types [...] 9:00 EST Office Visit [facility] Rheumatology & Immunology [address] [phone] Butch Blair, PLASTIC WELDING MACHINE OPERATOR 111 [facility], [address] [place] [phone] 07/26/2024 9:00 EDT Office Visit [facility] Rheumatology & Immunology [address] [address] Riri Seymour MD 111 [facility], [address] [place] [phone] documented as of this encounter Procedures Procedure Name Priority Date/Time Associated Diagnosis Comments HOLD SST Routine 04/10/2019 17:01 EST SYPHILIS SEROLOGY Routine 04/10/2019 10: 17 EST THYROID ANTIBODIES Routine 04/10/2019 10 :17 EST documented in this encounter Results * HOLD SST (04/10/2019 17:01 EST) Hold Hold 04/10/2019 18:15 EST [facility] Blood VENOUS BLOOD / Unknown 04/10/2019 17:01 EST 04/10/2019 17:01 EST Provider Unknown LAB INFO SERVICE AND SUPPORT & PHONE RESULT [facility] [address] [place] [address] * THYROID ANTIBODIES (04/10/2019 10:17 EST) Anti-Thyroglobulin <15 <=60 U/mL 2019 14:21 EST [facility] Thyroperoxidase Ab <28 <=60 U/mL 2019 14:21 EST [facility] Blood VENOUS BLOOD / Unknown 04/10/2019 10:17 EST 04/10/2019 17:01 EST Provider Unknown CHEMISTRY & BLOOD GA S ORDERABLES [facility] [address] [place] [address] * SYPHILIS SEROLOGY (04/10/2019 10:17 EST) Syphilis Serology Negative Negative 04/11/2019 10:52 EST [facility] Blood VENOUS BLOOD / Unknown 04/10/2019 10:17 EST 04/10/2019 17:01 EST Provider Unknown IMMUNOLOGY AND SERISAÍAS JIMENEZ ORDERABLES [facility] [address] [place] [address] documented in this encounter Visit Diagnoses Not on filedocumented in this encounter Care Teams Digital Product Specialist Relationship Specialty Start Date End Date Olaf Sahni MD PCP - General 09/20/08 11/05/20 Maureen Lua NP [address] [place] [address] PCP - General 11/06/20 documented as of this encounter
--- OUTSIDE RECORDS SUMMARY | 2023-12-02 11:24 | XMS_ITS | Encounter Summary ---
Author Organization [facility] Address [address] [place] [address] Care Team Providers Care Thumb Sewer Name Role Phone Chanell Maureen García ASBESTOS SHINGLE ROOFER Primary Care Provider [phone] Reason for Visit * Reason Comments Other Encounter Details Date Type Department Care Team (Late st Contact Info) Description 12/27/2020 Refill [facility] Rheumatology & Immunology - [address] [phone] Riri Seymour MD [address] [place] [address], [address] [place] [address] Other Social History Tobacco Use [...] [facility] [address] [phone] Butch Bliar NP [address] [place] [phone] 07/26/2024 9:00 EDT Office Visit [facility] Rheumatology & Immunology [address] [phone] Riri Seymour MD [address] [place] [phone] documented as of this encounter Visit Diagnoses Not on filedocumented in this encounter Discontinued Medications Medication Sig Discontinue Reason Start Date End Da te naproxen (NAPROSYN) 500 mg tablet Take 1 tablet twice daily as needed for pain. 08/29/2020 12/29/2020 documented as of this encounter Care Teams Thumb Sewer Relationship Specialty Start Date End Date Maureen Lua NP [address] [place] [address] PCP - General 11/06/20 documented as of this encounter
--- OUTSIDE RECORDS SUMMARY | 2023-12-02 11:24 | XMS_ITS | Encounter Summary ---
Author Organization [facility] Address [address] [place] [address] Care Team Providers Care Beef Breaker Name Role Phone Olaf Sahni MD Primary Care Provider U lisandraaildino Reason for Visit * Reason Onset Date Comments Medications Refill 09/04/2013 Enbrel Encounter Details Date Type Department Care Team (Late st Contact Info) Description 09/04/2013 Refill [facility] Rheumatology & Immunology - [address] [address] Jaciel Clancy MD Medications Refill [...] 50 mg/mL (0.98 mL) injectionIndications:Anky losing spondylitis ([facility]) Inject 1 mL into the skin every 14 days. 6 Syringe 1 09/04/2013 09/14/2013 documented in this encounter Miscellaneous Notes * Telephone Encounter - Ana Caraballo - 09/04/2013 1021 EDT Medication(s) Requested: Enbrel [facility] Last Refill Date: 03/22/13 Last Visit Date: 03/22/13 Next Visit Date: 09/14/2013 Is patient out of medication? Yes, but next dose is due 09/09 Ana Caraballo 09/04/2013 10:21 documented in this encounter Plan of Treatment Upcoming Encounters Date Type Department Care Team (Late st Contact Info) Description 01/17/2024 9:00 EST Office Visit [facility] Rheumatology & Immunology [address] [phone] Butch Blair NP [address] [place] [address] [phone] 07/26/2024 9:00 EDT Office Visit [facility] Rheumatology & Immunology [address] [address] Riri Seymour MD [address] [place] [phone] documented as of this encounter Visit Diagnoses Diagnosis Ankylosing spondylitis ([facility])- Primary Ankylosing spondylitis documented in this encounter Discontinued Medications Medication Sig Discontinue Reason Start Date End Da te etanercept (ENBREL) 50 mg/mL (0.98 mL) injectionIndications:Anky losing spondylitis ([facility]) Inject 1 mL into the skin every 14 days. Reorder 03/22/2013 09/04/2013 documented as of this encounter Care Teams Beef Breaker Relationship Specialty Start Date End Date Olaf Sahni MD PCP - General 09/20/08 11/05/20 documented as of this encounter
--- OUTSIDE RECORDS SUMMARY | 2023-12-02 11:24 | XMS_ITS | Encounter Summary ---
Author Organization [facility] Address [address] [place] [address] Care Team Providers Care Experimental Mechanic Spacecraft Name Role Phone Olaf Sahni MD Primary Care Provider Gustavo aldana Encounter Details Date Type Department Care Team (Late st Contact Info) Description 09/14/2013 Phlebotomy Only [address] [address] Spanish Instructor, Outpatient Ankylosing spondylitis ([facility]); Encounter for long-term (current) use of [...] [facility] Rheumatology & Immunology [address] [phone] Butch Blair NP [address] [place] [address], [facility] [address] [place] [phone] 07/26/2024 9:00 EDT Office Visit [facility] Rheumatology & Immunology [address] [phone] Riri Seymour MD [address] [place] [address], [address] [place] [phone] documented as of this encounter Procedures Procedure Name Priority Date/Time Associated Diagnosis Comments DMARD PROFILE Routine 09/14/2013 10:00 EDT Ankylosing spondylitis ([facility]) Encounter for long-term (current) use of other medications DIFFERENTIAL Routine 09/14/2013 10:00 EDT Ankylosing spondylitis ([facility]) Encounter for long-term (current) use of other medications SED RATE Routine 09/14/2013 10:00 EDT Ankylosing spondylitis ([facility]) COMPLETE BLOOD COUNT Routine 09/14/2013 10:00 EDT Ankylosing spondylitis ([facility]) Encounter for long-term (current) use of other medications COMPLETE BLOOD COUNT AND DIFFERENTIAL Routine 09/14/2013 10:00 EDT Ankylosing spondylitis ([facility]) Encounter for long-term (current) use of [...] & PF4 O RDERABLES Performing Organization Address City/[facility] Co de Phone Number [facility] [address] [place] [address] * HEMAGRAM (09/14/2013 10:00 EDT) WBC 4.71 [...] & PF4 O RDERABLES Performing Organization Address [facility] Co de Phone Number [facility] [address] [place] [address] * SED. RATE:WESTERGREN (09/14/2013 10:00 EDT) Sed. Rate Westergren 2 0 - 20 mm/hr [facility] Blood specimen (specimen) 09/14/2013 10:00 EDT 09/14/2013 10:18 EDT Ayaka [facility] HEMATOLOGY & PF4 O RDERABLES Performing Organization Address City/[facility]/ZIP Co de Phone Number [facility] [address] [place] [address] * DMARD PROFILE (09/14/2013 10:00 EDT) Total [...] BLOOD GAS ORDERABLES [facility] [address] [place] [address] documented in this encounter Visit Diagnoses Diagnosis Ankylosing spondylitis ([facility]) Ankylosing spondylitis Encounter for long-term (current) use of other medications documented in this encounter Care Teams Experimental Mechanic Spacecraft Relationship Specialty Start Date End Date Olaf Sahni MD PCP - General 09/20/08 11/05/20 documented as of this encounter
--- OUTSIDE RECORDS SUMMARY | 2023-12-02 11:24 | XMS_ITS | Encounter Summary ---
Author Organization [facility] Address [address] [place] [address] Care Team Providers Care Clinical Transplant Coordinator Name Role Phone Olaf Sahni MD Primary Care Provider U Maureen Harris NP Primary Care Provider [phone] Encounter Details Date Type Department Care Team (Late st Contact Info) Description 08/28/2019 Lab Requisition [facility] Pathology & Laboratory Medicine - [address] [phone] Outr Resulting Lab, Provider Social History Tobacco [...] Info) Description 01/17/2024 9:00 EST Office Visit [facility] Rheumatology & Immunology [address] 460381 Butch Blair, ONLINE COMMUNITY MANAGER [address] [place] [address], [address] [place] [address] 07/26/2024 9:00 EDT Office Visit [facility] Rheumatology & Immunology [address] [phone] Riri Seymour MD [address] [facility], [address] [place] [phone] documented as of this encounter Procedures Procedure Name Priority Date/Time Associated Diagnosis Comments HIV 1/2 ANTIGEN AND ANTIBODY, 4TH GENERATION Routine 08/28/2019 9:00 EDT documented in this encounter Results * HIV 1/2 ANTIGEN AND ANTIBODY, 4TH GENERATION (08/28/2019 9:00 EDT) HIV 1 and 2 Antibody/p24 Antigen, 4th Generation Negative Negative 08/29/2019 10:46 EDT [facility] Comment: If acute HIV-1 infection is suspected in a high risk ??patient, submit plasma specimen for HIV-1 RNA quantitation test. Fourth Generation assay performed on the Siemens Centaur. Blood VENOUS BLOOD / Unknown 08/28/2019 9:00 EDT 08/28/2019 16:05 EDT Provider Outr Resulting Lab IMMUNOLOGY A ND SEROLOGY ORDERABLES [facility] [address] [place] [address] documented in this encounter Visit Diagnoses Not on filedocumented in this encounter Care Teams Clinical Transplant Coordinator Relationship Specialty Start Date End Date Olaf Sahni MD PCP - General 09/20/08 11/05/20 Maureen Lua NP [address] [place] [address] PCP - General 11/06/20 documented as of this encounter
--- OUTSIDE RECORDS SUMMARY | 2023-12-02 11:24 | XMS_ITS | Encounter Summary ---
Author Organization [facility] Address [address] [place] [address] Care Team Providers Care Theater Education Teacher Name Role Phone Olaf Sahni MD Primary Care Provider U lisandraaildino Reason for Visit * Reason Comments Joint Pain all over Encounter Details Date Type Department Care Team (Latest Contact Info) Description 03/22/2014 12:45 EST Office Visit [facility] Rheumatology & Immunology - [facility] [address] [place], [place] [phone] Ayaka Dash, PA-C [address] [place] [address] Ankylosing spondylitis (H[facility]-CMS) (Primary Dx); Generalized osteoarthrosis, [...] 715.09 GENERAL OSTEOARTHROSIS, MULTIPLE SITES[ICD-9-CM] V58.69 AFTERCARE EMPLOYMENT COUNSELOR USE MEDICATN[ICD-9-CM] documented in this encounter Patient [...] Cancer Father prostate ??? Heart Disease Father [place] at 54 ??? Heart Disease Brother at [...] plan to adjust Enbrel next. Encounter for retirement use of medication. Labs up to date. [...] [facility] Rheumatology & Immunology [address] [phone] Butch Blair NP [address] [place] [address] [phone] 07/26/2024 9:00 EDT Office Visit [facility] Rheumatology & Immunology [address] [phone] Riri Seymour MD [address] [place] [phone] documented as of this encounter Visit Diagnoses Diagnosis Ankylosing spondylitis ([facility])- Primary Ankylosing spondylitis Generalized osteoarthrosis, involving multiple sites Encounter for long-term (current) use of other medications documented in this encounter Discontinued Medications Medication Sig Discontinue Reason Start Date End Da te meloxicam (MOBIC) 15 mg tablet Take 1 Tab by mouth daily. Alternate therapy 09/14/2013 03/22/2014 documented as of this encounter Care Teams Theater Education Teacher Relationship Specialty Start Date End Date Olaf Sahni MD PCP - General 09/20/08 11/05/20 documented as of this encounter
--- OUTSIDE RECORDS SUMMARY | 2023-12-02 11:24 | XMS_ITS | Encounter Summary ---
Author Organization [facility] Address [address] [place] [address] Care Team Providers Care Manager Card Name Role Phone Olaf Sahni MD Primary Care Provider U Maureen Harris NP Primary Care Provider Encounter Details Date Type Department Care Team (Late st Contact Info) Description 08/28/2019 Lab Requisition [facility] Pathology & Laboratory Medicine - [address] [phone] Outr Resulting Lab, Provider Social History Tobacco [...] 9:00 EST Office Visit [facility] Rheumatology & Immunology [address] 568761 Butch Blair, [employer] MANAGER [address] [place] [address], [address] [place] [address] 07/26/2024 9:00 EDT Office Visit [facility] Rheumatology & Immunology [address] [phone] Riri Seymour MD [address] [facility], [address] [place] [phone] documented as of this encounter Procedures Procedure Name Priority Date/Time Associated Diagnosis Comments HEPATITIS B SURFACE ANTIGEN Routine 08/28/2019 9:00 EDT documented in this encounter Results * HEPATITIS B SURFACE ANTIGEN (08/28/2019 9:00 EDT) Hep B Surface Ag Negative Negative 08/29/2019 9:35 EDT [facility] Blood VENOUS BLOOD / Unknown 08/28/2019 9:00 EDT 08/28/2019 21:11 EDT Provider Outr Resulting Lab CHEMISTRY & BLOOD GAS ORDERABLES [facility] [address] [place] [address] documented in this encounter Visit Diagnoses Not on filedocumented in this encounter Care Teams Manager Card Relationship Specialty Start Date End Date Olaf Sahni MD PCP - General 09/20/08 11/05/20 Maureen Lua NP [address] [place] [address] PCP - General 11/06/20 documented as of this encounter
--- OUTSIDE RECORDS SUMMARY | 2023-12-02 11:24 | XMS_ITS | Encounter Summary ---
Author Organization [facility] Address [address] [place] [address] Care Team Providers Care Cut Out Press Operator Name Role Phone Chanell Maureen García CERTIFIED APPLIANCE SERVICE TECHNICIAN Primary Care Provider [phone] Reason for Visit * Reason Comments Other Encounter Details Date Type Department Care Team (Late st Contact Info) Description 08/09/2021 Refill [facility] Rheumatology & Immunology - [address] [phone] Alanna Mccann MD [address] [place] [address], [address] [place] [address] Other Social History Tobacco Use [...] Description 01/17/2024 9:00 EST Office Visit [facility] Rheumatology & Immunology [address] 717451 Butch Blair NP [address] [place] [address] [phone] 07/26/2024 9:00 EDT Office Visit [facility] Rheumatology & Immunology [address] [phone] Riri Seymour MD [address] [place] [phone] documented as of this encounter Visit Diagnoses Diagnosis Ankylosing spondylitis of multiple sites in spine ([facility])- Primary Ankylosing spondylitis documented in this encounter Discontinued Medications Medication Sig Discontinue Reason Start Date End Da te etanercept (ENBREL SURECLICK) 50 mg/mL (1 mL) subcutaneous pen Inject 1 mL into the skin once a week. Dispense pen instead of pre-filled syringe 02/12/2021 08/11/2021 documented as of this encounter Care Teams Cut Out Press Operator Relationship Specialty Start Date End Date Maureen Lua NP [address] [place] [address] PCP - General 11/06/20 documented as of this encounter
--- OUTSIDE RECORDS SUMMARY | 2023-12-02 11:24 | XMS_ITS | Encounter Summary ---
Author Organization [facility] Address [address] [place] [address] Care Team Providers Care Instructor Extension Work Name Role Phone Olaf Sahni MD Primary Care Provider Gustavo aldana Reason for Visit * Reason Onset Date Comments Medications Refill 12/17/2013 Encounter Details Date Type Department Care Team (Late st Contact Info) Description 12/17/2013 Refill [facility] Rheumatology & Immunology - [facility] [address] [place], [place] [address] Ayaka Dash, PA-C [address] [place] [address] Medications Refill Social History Tobacco Use Types [...] every 10 days per Juanis, . Pharmacy: [facility] [phone] Last Refill Date: 09.14.2013 Last Visit Date: 09.14.2013 Next Visit Date: 03/22/2014 Is patient out of medication? YES - Per Juanis, he did last shot yesterday. Juanis made aware nursehas up to 48 hrs to call script in and to please call pharmacy prior to picking belt operator. Please call Jaylyn any questions/concerns. Thea Unger 12/17/2013 11:52 documented in this encounter Plan of Treatment Upcoming Encounters Date Type Department Care Team (Late st Contact Info) Description 01/17/2024 9:00 EST Office Visit [facility] Rheumatology & Immunology [address] [phone] Butch Blair NP [address] [place] [phone] 07/26/2024 9:00 EDT Office Visit [facility] Rheumatology & Immunology [address] [phone] Riri Seymour MD [address] [place] [phone] documented as of this encounter Visit Diagnoses Diagnosis Ankylosing spondylitis ([facility])- Primary Ankylosing spondylitis documented in this encounter Care Teams Instructor Extension Work Relationship Specialty Start Date End Date Olaf Sahni MD PCP - General 09/20/08 11/05/20 documented as of this encounter
--- OUTSIDE RECORDS SUMMARY | 2023-12-02 11:24 | XMS_ITS | Encounter Summary ---
Author Organization [facility] Address [address] [place] [address] Care Team Providers Care Back Tender Cloth Printing Name Role Phone Olaf Sahni MD Primary Care Provider Gustavo aldana Encounter Details Date Type Department Care Team (Late st Contact Info) Description 09/29/2020 Abstract [facility] Rheumatology & Immunology - [address] [phone] Riri Seymour MD [address] [place] [address], [address] [place] [phone] Social History Tobacco Use Types [...] Info) Description 01/17/2024 9:00 EST Office Visit [facility] Rheumatology & Immunology [address] [address] Butch Blair NP [address] [place] [phone] 07/26/2024 9:00 EDT Office Visit [facility] Rheumatology & Immunology [address] [address] Riri Seymour MD [address] [place] [phone] documented as of this encounter Procedures Procedure Name Priority Date/Time Associated Diagnosis Comments SED RATE Routine 09/29/2020 7:55 EDT COMPLETE BLOOD COUNT AND DIFFERENTIAL Routine 09/29/2020 7:55 EDT C REACTIVE PROTEIN Routine 09/29/2020 7: 55 EDT COMPREHENSIVE METABOLIC PANEL (CMP) Routine 09/29/2020 7:55 EDT documented in this encounter Results * SED. RATE:RADHA (09/29/2020 7:55 EDT) Pathologist [facility] Sed. Rate Obieergren, External 2 [facility] Blood VENOUS BLOOD / Unknown 09/29/2020 7:55 EDT Riri Seymour MD HEMATOLOGY & PF4 ORDERABLES [facility] * COMPLETE BLOOD COUNT AND DIFFERENTIAL (09/29/2020 7:55 EDT) [facility] WBC, External 4.76 [facility] RBC, External 4.55 [facility] Hemoglobin, External 14.3 [facility] HCT, External 42.9 [facility] MCV, External 94.3 [facility] MCH, External 31.4 [facility] MCHC, External 33.3 [facility] PLT, External 172 [facility] RDW-CV, External 12.3 [facility] Neutrophils, External 52.0 [facility] Lymphocytes, External 35.9 [facility] Monocytes, External 8.6 [facility] Eosinophils, External 2.9 [facility] Basophils, External 0.4 [facility] ABS Neutrophils, External 2.47 [facility] ABS Lymphs, External 1.71 [facility] ABS Monocytes, External 0.41 [facility] ABS Eosinophils, External 0.14 [facility] ABS Basophils, External 0.02 [facility] Blood VENOUS BLOOD / Unknown 09/29/2020 7:55 EDT Riri Seymour MD PACKAGES & DNA P GORGE ORDERABLES [facility] * COMPREHENSIVE METABOLIC PANEL (CMP) (09/29/2020 7:55 EDT) GFR, Calculated, External >60 [facility] Glucose, Serum, External 107 [facility] Comment:High Albumin, External 4.1 [facility] Total Alkaline Phosphatase, External 117 [facility] ALT, External 59 [facility] AST, External 36 [facility] BUN, External 17 [facility] Calculated Calcium, External [facility] Calcium, External 9.2 [facility] Chloride, External 107 [facility] CO2, External 31.2 [facility] Creatinine, External 1.2 [facility] Fasting?, External [facility] Potassium, External 4.4 [facility] Sodium, External 145 [facility] Total Protein, External 7.2 [facility] Bilirubin, Total, External 0.5 [facility] Blood VENOUS BLOOD / Unknown 09/29/2020 7:55 EDT Riri Seymour MD CHEMISTRY & BLOO D GAS ORDERABLES [facility] * C REACTIVE PROTEIN (09/29/2020 7:55 EDT) C-Reactive Protein, External 0.07 [facility] Blood VENOUS BLOOD / Unknown 09/29/2020 7:55 EDT Riri Seymour MD CHEMISTRY & BLOO D GAS ORDERABLES Performing Organization Address City/[facility]/ZIP Co de Phone Number [facility] documented in this encounter Visit Diagnoses Not on filedocumented in this encounter Care Teams Back Tender Cloth Printing Relationship Specialty Start Date End Date Olaf Sahni MD PCP - General 09/20/08 11/05/20 documented as of this encounter
--- OUTSIDE RECORDS SUMMARY | 2023-12-02 11:24 | XMS_ITS | Encounter Summary ---
Author Organization [facility] Address [address] [place] [address] Care Team Providers Care Clinical Research Assistant Name Role Phone Olaf Sahni MD Primary Care Provider Gustavo aldana Reason for Visit * Reason Comments Joint Pain Hands, hips, knees Back Pain Encounter Details Date Type Department Care Team (Latest Contact Info) Description 09/18/2012 8:30 EDT Office Visit [facility] Rheumatology & Immunology - [address] [phone] Ayaka Dash, PA-C [address] [place] [address] Ankylosing spondylitis ([facility]) (Primary Dx); Encounter for long-term (current) use [...] mg/mL (0.98 mL) injectionIndications:Anky losing spondylitis ([facility]) Inject 1 mL into the [...] Cancer Father prostate ??? Heart Disease Father [place] at 54 ??? Heart Disease Brother at [...] to adjust Meloxicam as needed). Encounter for nuclear medical tech use of medication. Due for labs now. [...] Visit [facility] Rheumatology [place] [address] Butch Blair NP [address] [phone] 07/26/2024 9:00 EDT Office Visit [facility] Rheumatology & Immunology - [address] [phone] Riri Seymour MD [address] [place] [address] [phone] documented as of this encounter Visit Diagnoses Diagnosis Ankylosing spondylitis ([facility])- Primary Ankylosing spondylitis Encounter for long-term (current) use of other medications documented in this encounter Discontinued Medications Medication Sig Discontinue Reason Start Date End Da te etanercept (ENBREL) 50 mg/mL (0.98 mL) injectionIndications:Anky losing spondylitis ([facility]) Inject 1 mL into the skin every 10 days. Order modification 12/28/2011 09/19/2012 documented as of this encounter Care Teams Clinical Research Assistant Relationship Specialty Start Date End Date Olaf Sahni MD PCP - General 09/20/08 11/05/20 documented as of this encounter
--- OUTSIDE RECORDS SUMMARY | 2023-12-02 11:24 | XMS_ITS | Encounter Summary ---
Author Organization [facility] Address [address] [place] [address] Care Team Providers Care Machine Whitener Name Role Phone ChanellMaureen jimenez DESIZING MACHINE OFFBEARER Primary Care Provider Reason for Visit * Reason Onset Date Comments Appointment Related 08/14/2021 Encounter Details Date Type Department Care Team (Late st Contact Info) Description 08/14/2021 Telephone [facility] Rheumatology & Immunology - [address] [phone] Riri Seymour MD [address] [place] [address], [address] 5 [place] [address] Appointment Related Social History Tobacco [...] offered in voicemail message earlier today, 08/14/21. Guidance Secretary has checked appts and no availability shown at the time of this call. Per caller, patient needs morning appts if another appt becomes available. documented in this encounter Plan of Treatment Upcoming Encounters Date Type Department Care Team (Late st Contact Info) Description 01/17/2024 9:00 EST Office Visit [facility] Rheumatology & Immunology [address] [phone] Butch Blair NP [address] [place] [phone] 07/26/2024 9:00 EDT Office Visit [facility] Rheumatology & Immunology [address] [phone] Riri Seymour MD [address] [place] [phone] documented as of this encounter Visit Diagnoses Not on filedocumented in this encounter Care Teams Machine Whitener Relationship Specialty Start Date End Date Maureen Lua NP [address] [place] [address] PCP - General 11/06/20 documented as of this encounter
--- OUTSIDE RECORDS SUMMARY | 2023-12-02 11:24 | XMS_ITS | Encounter Summary ---
Author Organization [facility] Address [address] [place] [address] Care Team Providers Care Collar Baster Jumpbasting Name Role Phone Olaf Sahni MD Primary Care Provider U lisandraaildino Reason for Visit * Reason Onset Date Comments Medications Refill 12/28/2011 Encounter Details Date Type Department Care Team (Late st Contact Info) Description 12/28/[address] [facility] Rheumatology & Immunology [address] [address] Jaciel Clancy MD Medications Refill [...] Visit [facility] Rheumatology & Immunology [address] [address] Butch Blair NP 111 [facility] 5 [place] [phone] 07/26/2024 9:[address] [facility] Rheumatology & Immunology - [facility] [address] [place], [place] [phone] Riri Seymour MD [address] [phone] documented as of this encounter Visit Diagnoses Diagnosis Ankylosing spondylitis ([facility])- Primary Ankylosing spondylitis documented in this encounter Discontinued Medications Medication Sig Discontinue Reason Start Date End Da te indomethacin (INDOCIN) 25 mg capsuleIndications:Ankylo sing spondylitis ([facility]) Take 1 Cap by mouth daily. Reorder 06/17/2011 12/28/2011 etanercept (ENBREL) 50 mg/mL (0.98 mL) injectionIndications:Anky losing spondylitis ([facility]) Inject 1 mL into the skin every 10 days. Reorder 09/16/2011 12/28/2011 documented as of this encounter Care Teams Collar Baster Jumpbasting Relationship Specialty Start Date End Date Olaf Sahni MD PCP - General 09/20/08 11/05/20 documented as of this encounter
--- OUTSIDE RECORDS SUMMARY | 2023-12-02 11:24 | XMS_ITS | Encounter Summary ---
Author Organization [facility] Address [address] [place] [address] Care Team Providers Care Duct Layer Name Role Phone Olaf Sahni MD Primary Care Provider U Maureen Harris NP Primary Care Provider [phone] Encounter Details Date Type Department Care Team (Late st Contact Info) Description 01/16/2019 Lab Requisition [facility] Pathology & Laboratory Medicine [address] [phone] Unknown, Provider, Social History Tobacco Use Types [...] Description 01/17/2024 9:00 EST Office Visit [facility] Rheumatology & Immunology [address] [phone] Butch Blair, TORCH SOLDERER 111 [facility], Level 5 [place] [phone] 07/26/2024 9:00 EDT Office Visit [facility] Rheumatology & Immunology [address] [address] Riri Seymour MD 111 [facility], [address] [place] [phone] documented as of this encounter Procedures Procedure [...] 8:43 EST) Hold Hold 01/16/2019 23:45 EST [facility] Blood VENOUS BLOOD / Unknown Non-Lab Collect / Unknown 01/16/2019 8:43 EST 01/16/2019 22:41 EST Provider Unknown LAB INFO SERVICE AND SUPPORT & PHONE RESULT [facility] [address] [place] [address] * HOLD SST (01/16/2019 8:43 EST) Hold Hold 01/16/2019 23:45 EST [facility] Blood VENOUS BLOOD / Unknown Non-Lab Collect / Unknown 01/16/2019 8:43 EST 01/16/2019 22:41 EST Provider Unknown LAB INFO SERVICE AND SUPPORT & PHONE RESULT [facility] [address] [place] [address] * HEPATITIS B SURFACE ANTIBODY (01/16/2019 8:43 EST) Hep B Surface Ab, Qualitative Negative See Note 01/17/2019 14:55 EST [facility] Comment: Reference Range for Hep B Surface Ab, Qual: Unvaccinated: ??Negative Vaccinated: ??Positive Hep B Surface Ab, Quantitative <3.1 mIU/mL 01/17/2019 14:55 EST [facility] Comment: Patient is presumed to not be immune to infection with Hepatitis B Virus. Blood VENOUS BLOOD / Unknown Non-Lab Collect / Unknown 01/16/2019 8:43 EST 01/16/2019 22:40 EST Provider Unknown CHEMISTRY & BLOOD GA S ORDERABLES Performing Organization Address City/[facility] Co de Phone Number [facility] [address] [place] [address] * HEPATITIS B CORE ANTIBODY (TOTAL) (01/16/2019 8:43 EST) Hepatitis B Core Ab, Total Negative Negative 01/17/2019 11:55 EST [facility] Blood VENOUS BLOOD / Unknown Non-Lab Collect / Unknown 01/16/2019 8:43 EST 01/16/2019 22:40 EST Provider Unknown CHEMISTRY & BLOOD GA S ORDERABLES [facility] [address] [place] [address] * HEPATITIS B SURFACE ANTIGEN (01/16/2019 8:43 EST) Hep B Surface Ag Negative Negative 01/17/2019 11:11 EST [facility] Blood VENOUS BLOOD / Unknown Non-Lab Collect / Unknown 01/16/2019 8:43 EST 01/16/2019 22:40 EST Provider Unknown CHEMISTRY & BLOOD GA S ORDERABLES [facility] [address] [place] [address] * HEPATITIS C AB W REFLEX TO HCV RNA BY PCR (01/16/2019 8:43 EST) Hep C Antibody Negative Negative 01/17/2019 11:55 EST [facility] Blood VENOUS BLOOD / Unknown Non-Lab Collect / Unknown 01/16/2019 8:43 EST 01/16/2019 22:40 EST Provider Unknown MD CHEMISTRY & BLOOD GA S ORDERABLES [facility] [address] [place] [address] documented in this encounter Visit Diagnoses Not on filedocumented in this encounter Care Teams Duct Layer Relationship Specialty Start Date End Date Olaf Sahni MD PCP - General 09/20/08 11/05/20 Maureen Lua NP [address] [place] [address] PCP - General 11/06/20 documented as of this encounter
--- OUTSIDE RECORDS SUMMARY | 2023-12-02 11:24 | XMS_ITS | Encounter Summary ---
Author Organization Health system Address [address] [place] [address] Care Team Providers Care Principal Systems Architect Name Role Phone Olaf Sahni MD Primary Care Provider Gustavo aldana Reason for Visit * Reason Onset Date Comments Medications Refill 06/12/2014 Encounter Details Date Type Department Care Team (Late st Contact Info) Description 06/12/2014 Refill [facility] Rheumatology & Immunology - [facility] [address] [place], [place] [phone] Ayaka Dash, PA-C [address] [place] [address] Medications Refill Social History Tobacco Use Types [...] 50 mg/mL (0.98 mL) injectionIndications:An kylosing spondylitis ([facility]) Inject 1 mL into the [...] Info) Description 01/17/2024 9:00 EST Office Visit [facility] Rheumatology & Immunology [address] [phone] Butch Blair NP [address] [place] [phone] 07/26/2024 9:00 EDT Office Visit [facility] Rheumatology & Immunology [address] [phone] Riri Seymour MD [address] [place] [phone] documented as of this encounter Visit Diagnoses Diagnosis Ankylosing spondylitis ([facility]) Ankylosing spondylitis documented in this encounter Discontinued Medications Medication Sig Discontinue Reason Start Date End Da te etanercept (ENBREL) 50 mg/mL (0.98 mL) injectionIndications:Anky losing spondylitis ([facility]) Inject 1 mL into the skin every 7 days. Reorder 09/14/2013 06/12/2014 documented as of this encounter Care Teams Principal Systems Architect Relationship Specialty Start Date End Date Olaf Sahni MD PCP - General 09/20/08 11/05/20 documented as of this encounter
--- OUTSIDE RECORDS SUMMARY | 2023-12-02 11:24 | XMS_ITS | Encounter Summary ---
Author Organization [facility] Address [address] [place] [address] Care Team Providers Care Building Drafting Officer Name Role Phone Olaf Sahni MD Primary Care Provider U Maureen Harris NP Primary Care Provider [phone] Encounter Details Date Type Department Care Team (Late st Contact Info) Description 08/29/2019 Lab Requisition [facility] Pathology & Laboratory Medicine - [address] [phone] Outr Resulting Lab, Provider Social History Tobacco [...] Info) Description 01/17/2024 9:00 EST Office Visit [facility] Rheumatology & Immunology [address] 615851 Butch Blair, HYDRAULIC PRESS SERVICER [address] [place] [address], [address] [place] [phone] 07/26/2024 9:00 EDT Office Visit [facility] Rheumatology & Immunology [address] [phone] Riri Seymour MD 111 [facility], [address] [place] [phone] documented as of this encounter Procedures Procedure Name Priority Date/Time Associated Diagnosis Comments QUANTIFERON TB GOLD PLUS Routine 08/28/2019 9:00 EDT documented in this encounter Results * QUANTIFERON TB GOLD PLUS (08/28/2019 9:00 EDT) [facility] Quantiferon Interpretation Negative Negative 08/31/2019 13:36 EDT [facility] Comment: No interferon-gamma response to [...] Nil 0.00 IU/ml 08/31/19 20 13:36 EDT [facility] TB2 Ag minus Nil 0.00 IU/mL 08/31/19 20 13:36 EDT [facility] Blood VENOUS BLOOD / Unknown 08/28/2019 9:00 EDT 08/29/2019 16:17 EDT Narrative [facility] - 08/31/2019 13:36 EDT Results were obtained with the [employer] QuantiFERON-TB Gold Plus JOHN. Provider Outr Resulting Lab CHEMISTRY & BLOOD GAS ORDERABLES [facility] [address] [place] [address] documented in this encounter Visit Diagnoses Not on filedocumented in this encounter Care Teams Building Drafting Officer Relationship Specialty Start Date End Date Olaf Sahni MD PCP - General 09/20/08 11/05/20 Maureen Lua NP [address] [place] [address] PCP - General 11/06/20 documented as of this encounter
--- OUTSIDE RECORDS SUMMARY | 2023-12-02 11:24 | XMS_ITS | Encounter Summary ---
Author Organization [facility] Address [address] [place] [address] Care Team Providers Care Cargo And Container Inspector Name Role Phone Olaf Sahni MD Primary Care Provider U navailable Reason for Referral * Medication Prior Authorization (Routine) - Authorized Specialty Diagnoses / Procedures [facility] Referred To Contact Rheumatology Diagnoses Fibromyalgia Riri Seymour MD [address] [place] [address], [facility] 5 [place] [address] [place] [address] [address] [place] [address] Referral ID Status Reason Start Date Expiration Date Visits Requested Visits Authorized [id number] Authorized Medication Prior Authorization 09/04/2020 1 1 [...] st Contact Info) Description 09/04/2020 Orders Only [facility] Rheumatology & Immunology - [address] [address] Toshia Daly RN Fibromyalgia (Primary [...] Info) Description 01/17/2024 9:00 EST Office Visit [facility] Rheumatology & Immunology [address] [phone] Butch Blair NP [address] [place] [phone] 07/26/2024 9:00 EDT Office Visit [facility] Rheumatology & Immunology [address] [phone] Riri Seymour MD [address] [place] [phone] Scheduled Referrals Name Type Priority Associated Diagnoses Order Schedule AMB MEDICATION PRIOR AUTHORIZATION Outpatient Referral Routine Fibromyalgia Ordered: 09/04/2020 documented as of this encounter Visit Diagnoses Diagnosis Fibromyalgia- Primary Mylagia and myositis, unspecified documented in this encounter Care Teams Cargo And Container Inspector Relationship Specialty Start Date End Date Olaf Sahni MD PCP - General 09/20/08 11/05/20 documented as of this encounter
--- OUTSIDE RECORDS SUMMARY | 2023-12-02 11:24 | XMS_ITS | Encounter Summary ---
Author Organization [facility] Address [address] [place] [address] Care Team Providers Care Rn Diabetes Educator Name Role Phone Olaf Sahni MD Primary Care Provider U lisandraaildino Reason for Visit * Reason Onset Date Comments Orders (Non Pre-visit) 09/24/2011 Encounter Details Date Type Department Care Team (Late st Contact Info) Description 09/24/2011 Telephone [facility] Rheumatology & Immunology [address] [address] Rosa Beard RN Orders (Non [...] Info) Description 01/17/2024 9:00 EST Office Visit [facility] Rheumatology Immunology [address] [address] Butch Blair, SHEELA 111 [facility] 5 [place] [phone] 07/26/2024 9:00 EDT Office Visit [facility] Rheumatology & Immunology - [facility] [address] [place], [place] [phone] Riri Seymour MD [address] [phone] documented as of this encounter Visit Diagnoses Not on filedocumented in this encounter Care Teams Rn Diabetes Educator Relationship Specialty Start Date End Date Olaf Sahni MD PCP - General 09/20/08 11/05/20 documented as of this encounter
--- OUTSIDE RECORDS SUMMARY | 2023-12-02 11:24 | XMS_ITS | Encounter Summary ---
Author Organization [facility] Address [address] [place] [address] Care Team Providers Care Collection Systems Consultant Name Role Phone ChanellMaureen jimenez TRAIN INSPECTOR Primary Care Provider [phone] Reason for Referral * Radiology Services (Routine/Next Available) - Authorization Not Required Specialty Diagnoses / Procedures Referred By Contac t Referred To Contact Diagnoses Left elbow pain Procedures XR ELBOW LEFT 3 OR MORE VIEWS Riri Seymour MD [address] [place] [phone] [facility] Referral ID Status Reason Start Date Expiration Date Visits Requested Visits Authorized [id number] Authorization Not Required 10/08/2021 1 1 * Radiology Services (Routine/Next Available) - Authorization Not Required Specialty Diagnoses / Procedures Referred By Contac t Referred To Contact Diagnoses Spondyloarthritis Chronic back pain, unspecified back location, unspecified back pain laterality Procedures XR ENTIRE SPINE 2-3 VIEWS Riri Seymour MD [address] [place] [phone] [facility] Referral ID Status Reason Start Date Expiration Date Visits Requested Visits Authorized [id number] Authorization Not Required 10/08/2021 1 1 Reason for Visit * Reason Comments Follow-up Fatigue Encounter Details Date Type Department Care Team (Late st Contact Info) Description 10/08/2021 11:40 EDT Office Visit [facility] Rheumatology & Immunology - [address] [phone] Riri Seymour MD [address] [place] [address], [address] [place] [phone] Spondyloarthritis (Primary Dx); Chronic back [...] to pool therapy Follow up 07/2022. Riri Seyomur MD documented in this encounter Progress Notes * Riri Seymour MD - 10/08/2021 1140 EDT [facility] Department of Rheumatology Follow Up Visit [...] never subsided. He transferred his care to [place], he was switched to adalimumab, was on it for about 6 months and later secukinumab for less than 1 year and most recently in 05/2019 while under the care of at [facility], he was switched back to etanercept. ??He [...] Cancer Father prostate ??? Heart Disease Father [place] at 54 ??? Heart Disease Brother at [...] MD Department of Rheumatology Attending Physician Pager: [phone] documented in this encounter Plan of Treatment Upcoming Encounters Date Type Department Care Team (Late st Contact Info) Description 01/17/2024 9:00 EST Office Visit [facility] Rheumatology & Immunology [address] [address] Butch Blair NP [address] [place] [phone] 07/26/2024 9:00 EDT Office Visit [facility] Rheumatology & Immunology [address] [phone] Riri Seymour MD [address] [place] [phone] documented as of this encounter Results * TSH (10/08/2021 13:20 EDT) TSH 1.42 0.47 - 4.68 mIU/L 10/08/2021 15:03 EDT [facility] Blood VENOUS BLOOD / Unknown Venipuncture / Unknown 10/08/2021 13:20 EDT 10/08/2021 13:55 EDT Narrative [facility] - 10/08/2021 15:03 EDT The results of this assay can be falsely lowered due to the consumption of Biotin. Riri Seymour MD CHEMISTRY & BLOO D GAS ORDERABLES [facility] [address] [place] [address] * (ABNORMAL) VITAMIN B12 (10/08/2021 13:20 EDT) Vitamin B12 1,054(H) 211 - 911 pg/mL 10/08/2021 16:15 EDT [facility] Blood VENOUS BLOOD / Unknown Venipuncture / Unknown 10/08/2021 13:20 EDT 10/08/2021 13:55 EDT Riri Seymour MD CHEMISTRY & BLOO D GAS ORDERABLES Performing Organization Address [facility] Co de Phone Number [facility] [address] [place] [address] * VITAMIN D (25,OH) (10/08/2021 13:20 EDT) 25OH Vitamin D Tot 44 30 - 100 ng/mL 10/09/2021 10:58 EDT [facility] Comment: Vitamin D 25,OH Interpretive Ranges: Deficiency: ??<10.0 ng/mL Insufficiency: ??10.0 - 30.0 ng/mL Sufficiency: ??30.0 - 100.0 ng/mL Toxicity: ??>100.0 ng/mL Blood VENOUS BLOOD / Unknown Venipuncture / Unknown 10/08/2021 13:20 EDT 10/08/2021 13:55 EDT Riri Seymour MD CHEMISTRY & BLOO D GAS ORDERABLES [facility] [address] [place] [address] * HEREDITARY HEMOCHROMATOSIS HFE TEST (10/08/2021 13:20 EDT) Pathologist [facility] Result Summary SEE NOTE 10/12/2021 14:22 EDT [facility] Comment:RESULT: COMPLEX (SEE RESULT AND INTERPRETATION) Result SEE NOTE 10/12/2021 14:22 [facility] Comment: C282Y: One copy of the C282Y variant was identified. H63D: One copy of the H63D variant was identified. S65C: Not detected. Interpretation SEE NOTE 10/12/2021 14:22 [facility] Comment: This result may be consistent with, [...] ADDITIONAL INFORMATION An online research opportunity called [employer] ([email or web address]), a project of [employer], is available for the recipient of this genetic test. This patient registry collects de-identified genetic and health information to advance the knowledge of genetic variants. [facility] is a collaborator of [employer]. This may not be applicable for all [...] allogenic donors will interfere with testing. Call [facility] for instructions for testing [...] developed and its performance characteristics determined by [facility] in a manner consistent with CLIA requirements. This test has not been cleared or approved by the U.S. Food and Drug Administration. Specimen WB Whole Blood 10/12/2021 14:22 EDT [facility] Source Not Reported 10/12/2021 14:22 EDT [facility] Method SEE NOTE 10/12/2021 14:22 EDT [facility] Comment: Droplet Digital Polymerase Chain Reaction (ddPCR) [...] by Neema Cabrera, Ph.D. 10/12/2021 14:22 EDT [facility] Comment: Test Performed by: [address] [address] Electric Meter Tester Helper: Vernon Moeller M.D. Ph.D.; CLIA# [id number] Blood VENOUS BLOOD / Unknown Venipuncture / Unknown 10/08/2021 13:20 EDT 10/08/2021 13:55 EDT Riri Seymour MD PACKAGES & DNA P ROBE ORDERABLES [address] [address] * SED RATE (10/08/2021 13:20 EDT) Sed Rate 2 0 - 20 mm/hr 10/08/2021 14:02 EDT [facility] Blood VENOUS BLOOD / Unknown Venipuncture / Unknown 10/08/2021 13:20 EDT 10/08/2021 13:55 EDT Riri Seymour MD HEMATOLOGY & PF4 ORDERABLES [facility] [address] [place] [address] * (ABNORMAL) C REACTIVE PROTEIN (10/08/2021 13:20 EDT) C-Reactive Protein 21.9(H) <10.0 mg/L 10/08/2021 14:31 EDT [facility] Blood VENOUS BLOOD / Unknown Venipuncture / Unknown 10/08/2021 13:20 EDT 10/08/2021 13:55 EDT Riri Seymour MD CHEMISTRY & BLOO D GAS ORDERABLES Performing Organization Address City/[facility]/ZIP Co de Phone Number [facility] [address] [place] [address] * XR ELBOW LEFT 3 OR MORE [...] REGARDING THIS REPORT PLEASE CALL [facility] AT [phone] [facility] 10/10/2021 18:02 EDT PROCEDURE INFORMATION: Exam: XR [...] CONCERNS REGARDING THIS REPORT PLEASE CALL AD [phone] Riri Seymour MD IMG DIAGNOSTIC I MAGING [...] daily. added in this encounter Care Teams Collection Systems Consultant Relationship Specialty Start Date End Date Maureen Lua NP [address] [place] [address] PCP - General 11/06/20 documented as of this encounter
--- OUTSIDE RECORDS SUMMARY | 2023-12-02 11:25 | XMS_ITS | Encounter Summary ---
Author Organization [facility] Address [address] [place] [address] Care Team Providers Care Blind Hanger Name Role Phone Unavailable Primary Care Provider Unavailabl e Encounter Details Date Type Department Care Team (Late st Contact Info) Description 03/15/2006 9:59 EST Hospital Encounter [address] [address] Jaciel Clancy MD Unknown, Provider, Social History [...] 01/17/2024 9:00 EST Office Visit [facility] Rheumatology & Immunology - [address] 999291 Butch Blair NP 111 [facility], [facility] [place] 5 [place] [phone] 07/26/2024 9:00 EDT Office Visit [facility] Rheumatology & Immunology - [facility] [address] [place], [place] [phone] Riri Seymour MD 111 [facility], Level [address] [place] [phone] documented as of this encounter Procedures Procedure [...] PF4 ORD ERABLES [facility] [address] [place] [address] * (ABNORMAL) COMPREHENSIVE METABOLIC PANEL (03/15/2006 11:34 [...] BLOOD GA S ORDERABLES Performing Organization Address City/State/[facility] Co de Phone Number [facility] [address] [place] [address] * HEMAGRAM AND DIFFERENTIAL (03/15/2006 11:34 EST) [...] DNA PROBE ORDERABLES [facility] [address] [place] [address] documented in this encounter Visit Diagnoses Not on filedocumented in this encounter
--- OUTSIDE RECORDS SUMMARY | 2023-12-02 11:25 | XMS_ITS | Encounter Summary ---
Author Organization [facility] Address [address] [place] [address] Care Team Providers Care Grazing Examiner Name Role Phone Olaf Sahni MD Primary Care Provider Gustavo aldana Encounter Details Date Type Department Care Team (Latest Contact Info) Description 09/24/2008 8:14 EDT - 09/24/2008 23:[address] [facility] Rheumatology Immunology [address] [phone] Jacile Clancy MD Discharge Disposition: Home or Self Care Social History Tobacco Use Types Packs/Day Years Used Date Smoking Tobacco: Never Assessed Sex and Gender Information Value Date Recorded Sex Assigned at Not on file Gender Identity Male 11/06/2020 8:02 EDT Sexual Orientation Not on file documented as of this encounter Discharge Disposition Disposition Code Departure Means Destination Home or Self Longterm documented in this encounter Plan of Treatment Upcoming Encounters Date Type Department Care Team (Late st Contact Info) Description 01/17/2024 9:[address] [facility] Rheumatology & Immunology [address] [phone] Butch Blair NP [address] [place] [phone] 07/26/2024 9:[address] [facility] Rheumatology Immunology [address] [phone] Riri Seymour MD [address] [place] [phone] documented as of this encounter Visit Diagnoses Not on filedocumented in this encounter Care Teams Grazing Examiner Relationship Specialty Start Date End Date Olaf Sahni MD PCP - General 09/20/08 11/05/20 documented as of this encounter
--- OUTSIDE RECORDS SUMMARY | 2023-12-02 11:25 | XMS_ITS | Encounter Summary ---
Author Organization [facility] Address [address] [place] [address] Care Team Providers Care Provider Contracting Consultant Name Role Phone Unavailable Primary Care Provider Unavailabl e Encounter Details Date Type Department Care Team (Latest Contact Info) Description 05/31/2003 15:19 EST Hospital Encounter [facility] - Other [address] [place] [phone] Jaciel Clancy MD Discharge Disposition: Auto Discharge [...] Office Visit [facility] Rheumatology & Immunology [address] [phone] Butch Blair NP [address] [place] [phone] 07/26/2024 9:00 EDT Office Visit [facility] Rheumatology & Immunology [address] [phone] Riri Seymour MD [address] [place] [phone] documented as of this encounter Procedures Procedure [...] joints are fused. IMPRESSION: Fused sacroiliac joints. /[facility] Jaciel COUCH DIAGNOSTIC IMAGI NG ORDERABLES * [...]
--- OUTSIDE RECORDS SUMMARY | 2023-12-02 11:25 | XMS_ITS | Encounter Summary ---
Author Organization [facility] Address [address] [place] [address] Care Team Providers Care Lap Winder Name Role Phone Unavailable Primary Care Provider Unavailabl e Encounter Details Date Type Department Care Team (Late st Contact Info) Description 09/20/2006 8:45 EDT Hospital Encounter [address] [address] Jaciel Clancy MD Social History Tobacco Use [...] Visit [facility] Rheumatology & Immunology [address] [phone] Butch Blair NP [address] [place] [address], [place] 5 [place] [phone] 07/26/2024 9:00 EDT Office Visit [facility] Rheumatology & Immunology [address] [address] Riri Seymour MD 111 [facility], Level [address] [place] [phone] documented as of this encounter Procedures Procedure [...] PF4 ORD ERABLES [facility] [address] [place] [address] * CREATININE (09/20/2006 10:06 EDT) Creatinine 1.06 0.7 - 1.5 mg/dl [facility] GFR, Calculated >60 ml/min/1.7 3m2 [facility] 09/20/2006 10:0 6 EDT 09/20/2006 10:18 EDT Jaciel Clancy MD CHEMISTRY & BLOOD GA S ORDERABLES Performing Organization Address City/[facility]/ZIP Co de Phone Number [facility] [address] [place] [address] documented in this encounter Visit Diagnoses Not on filedocumented in this encounter
--- OUTSIDE RECORDS SUMMARY | 2023-12-02 11:25 | XMS_ITS | Encounter Summary ---
Author Organization [facility] Address [address] [place] [address] Care Team Providers Care Physical Science Aide Name Role Phone Olaf Sahni MD Primary Care Provider Gustavo aldana Encounter Details Date Type Department Care Team (Latest Contact Info) Description 03/25/2009 9:33 EST - 03/25/2009 23:59 EST Hospital Encounter [address] [phone] Jaciel Clancy MD Discharge Disposition: Auto Discharge [...] 01/17/2024 9:00 EST Office Visit [facility] Rheumatology & Immunology [address] [phone] Butch Blair NP 111 [facility], Level [address] [place] [phone] 07/26/2024 9:00 EDT Office Visit [facility] Rheumatology & Immunology [address] [phone] Riri Seymour MD 111 [facility], Level [address] [place] [phone] documented as of this encounter Visit Diagnoses Not on filedocumented in this encounter Care Teams Physical Science Aide Relationship Specialty Start Date End Date Olaf Sahni MD PCP - General 09/20/08 11/05/20 documented as of this encounter
--- OUTSIDE RECORDS SUMMARY | 2023-12-02 11:25 | XMS_ITS | Encounter Summary ---
Author Organization [facility] Address [address] [place] [address] Care Team Providers Care Volleyball Commentator Name Role Phone Olaf Sahni MD Primary Care Provider U lisandraailable Reason for Visit * Reason Onset Date Comments Medications Refill 09/15/2010 Encounter Details Date Type Department Care Team (Late st Contact Info) Description 09/15/2010 Refill [facility] Rheumatology & Immunology [address] [phone] Jaciel Clancy MD Medications Refill Social History [...] Info) Description 01/17/2024 9:00 EST Office Visit [facility] Rheumatology & Immunology [address] [phone] Butch Blair, SHEELA 111 [facility], [facility] 5 [place] [phone] 07/26/2024 9:00 EDT Office Visit [facility] Rheumatology & Immunology - [address] 555241 Riri Seymour MD 111 [facility], Level [address] [place] [phone] documented as of this encounter Visit Diagnoses Diagnosis Ankylosing spondylitis ([facility]) Ankylosing spondylitis documented in this encounter Care Teams Volleyball Commentator Relationship Specialty Start Date End Date Olaf Sahni MD PCP - General 09/20/08 11/05/20 documented as of this encounter
--- OUTSIDE RECORDS SUMMARY | 2023-12-02 11:25 | XMS_ITS | Encounter Summary ---
Author Organization [facility] Address [address] [place] [address] Care Team Providers Care Director Of Software Development Name Role Phone Unavailable Primary Care Provider Unavailabl e Encounter Details Date Type Department Care Team (Latest Contact Info) Description 01/11/2000 16:20 EST Hospital Encounter [facility] - Other [address] [place] [address] Jaciel Clancy MD Unknown, Provider, Discharge Disposition: [...] Info) Description 01/17/2024 9:00 EST Office Visit [facility] Rheumatology & Immunology [address] [phone] Butch Blair NP [address] [place] [phone] 07/26/2024 9:00 EDT Office Visit [facility] Rheumatology & Immunology [address] [phone] Riri Seymour MD [address] [place] [phone] documented as of this encounter Procedures Procedure [...] GA S ORDERABLES [facility] [address] [place] [address] * LIPID PROFILE (INCLUDES CHOLESTEROL, TRIGLYCERIDES, HDL, LDL) (01/11/2000 14:20 EST) Cholesterol 207 mg/dl [facility] Comment: Desirable:<200 Borderline:200-239 High Risk:>yd=836 Triglycerides 55 35 - 160 mg/dl [facility] HDL 54 mg/dl [facility] Comment: Highly Desirable:>60 Desirable:35-60 High Risk:<35 LDL, Calculated 142 mg/dl [facility] Comment: Desirable:<130 Borderline:130-159 High Risk:>wt=494 Chol/HDL Ratio 3.8 [facility] 01/11/2000 14:2 0 EST 01/11/2000 14:22 EST Jaciel Clancy MD CHEMISTRY & BLOOD GA S ORDERABLES [facility] [address] [place] [address] * (ABNORMAL) HEMAGRAM & DIFF (01/11/2000 14:20 [...] FOR S Q LOAD Performing Organization Address City/State/[facility] Co de Phone Number [facility] [address] [place] [address] documented in this encounter Visit Diagnoses Not on filedocumented in this encounter"
--- OUTSIDE RECORDS SUMMARY | 2023-12-02 11:25 | XMS_ITS | Encounter Summary ---
Author Organization [facility] Address [address] [place] [address] Care Team Providers Care District Traffic Chief Name Role Phone Olaf Sahni MD Primary Care Provider Gustavo aldana Encounter Details Date Type Department Care Team (Late st Contact Info) Description 03/21/2007 Before PRISM Converted Visit ([facility]) [facility] conversion [address] [place] [address] Jaciel Clancy MD Social History Tobacco Use [...] lungs are clear. Heart tones normal. His yluqdk-do-mausr distance 9 cm. Chest expansion 5 cm and kspb-hm-xgyd distance 0 cm. He has relatively good [...] Jaciel Clancy MD - dd Job ID: [id number] Doc ID: [id number] cc: Olaf Sahni MD documented in this encounter Plan of Treatment Upcoming Encounters Date Type Department Care Team (Late st Contact Info) Description 01/17/2024 9:00 EST Office Visit [facility] Rheumatology & Immunology [address] [phone] Butch Blair NP [address] [place] [phone] 07/26/2024 9:00 EDT Office Visit [facility] Rheumatology & Immunology [address] [phone] Riri Seymour MD [address] [place] [phone] documented as of this encounter Visit Diagnoses Not on filedocumented in this encounter Care Teams District Traffic Chief Relationship Specialty Start Date End Date Olaf Sahni MD PCP - General 09/20/08 11/05/20 documented as of this encounter
--- OUTSIDE RECORDS SUMMARY | 2023-12-02 11:25 | XMS_ITS | Encounter Summary ---
Author Organization [facility] Address [address] [place] [address] Care Team Providers Care Macaroni Press Operator Name Role Phone Olaf Sahni MD Primary Care Provider U jovan Encounter Details Date Type Department Care Team (Late st Contact Info) Description 09/20/2006 Before PRISM Converted Visit (Maple) [facility] - Maple conversion [address] [place] [address] Jaciel Clancy MD Social History Tobacco Use [...] be for some relatives and will be rn ante partum. He knows his difficulty with squatting, diffi [...] Jaciel Clancy MD - ms Job ID: [id number] Doc ID: [id number] cc: Olaf Sahni MD documented in this encounter Plan of Treatment Upcoming Encounters Date Type Department Care Team (Late st Contact Info) Description 01/17/2024 9:00 EST Office Visit [facility] Rheumatology & Immunology [address] [phone] Butch Blair NP [address] [place] [phone] 07/26/2024 9:00 EDT Office Visit [facility] Rheumatology & Immunology [address] [phone] Riri Seymour MD [address] [place] [phone] documented as of this encounter Visit Diagnoses Not on filedocumented in this encounter Care Teams Macaroni Press Operator Relationship Specialty Start Date End Date Olaf Sahni MD PCP - General 09/20/08 11/05/20 documented as of this encounter
--- OUTSIDE RECORDS SUMMARY | 2023-12-02 11:25 | XMS_ITS | Encounter Summary ---
Author Organization [facility] Address [address] [place] [address] Care Team Providers Care Wildlife Ecologist Name Role Phone Olaf Sahni MD Primary Care Provider Gustavo aldana Encounter Details Date Type Department Care Team (Late st Contact Info) Description 03/23/2005 Before PRISM Converted Visit (Maple) [facility] - Maple conversion [address] [place] [address] Jaciel Clancy MD Social History Tobacco Use [...] SOCO Elise Counselor Division of Vocational Rehab [address] [place] [address] [address] [place] [address] : 1960 SSN: [id number] Ms. Seymour: [...] Clancy MD P - O1 Job ID: [id number] Document ID: [id number] cc: *SOCO Elise counselor, Div. of Voc. Rehab, [address] [place] [address] [address]* documented in this encounter Plan of Treatment Upcoming Encounters Date Type Department Care Team (Late st Contact Info) Description 01/17/2024 9:00 EST Office Visit [facility] Rheumatology & Immunology - [address] [phone] Butch Blair NP 111 [facility], Level [address] [place] [phone] 07/26/2024 9:00 EDT Office Visit [facility] Rheumatology & Immunology - [address] [phone] Riri Seymour MD 111 [facility] 5 [place] [phone] documented as of this encounter Visit Diagnoses Not on filedocumented in this encounter Care Teams Wildlife Ecologist Relationship Specialty Start Date End Date Olaf Sahni MD PCP - General 09/20/08 11/05/20 documented as of this encounter
--- OUTSIDE RECORDS SUMMARY | 2023-12-02 11:25 | XMS_ITS | Encounter Summary ---
Author Organization [facility] Address [address] [place] [address] Care Team Providers Care Organizational Development Director Name Role Phone Olaf Sahni MD Primary Care Provider U navailable Reason for Visit * Reason Onset Date Comments Medications Refill 06/17/2011 Encounter Details Date Type Department Care Team (Late st Contact Info) Description 06/17/2011 Refill [facility] Rheumatology & Immunology [address] [phone] Jaciel Clancy MD Medications Refill Social History [...] Info) Description 01/17/2024 9:00 EST Office Visit [facility] Rheumatology & Immunology [address] [phone] Butch Blair NP 111 [facility], [facility] 5 [place] [phone] 07/26/2024 9:00 EDT Office Visit [facility] Rheumatology & Immunology - [facility] [address] [place], [place] [address] Riri Seymour MD 111 [facility], Level [address] [place] [phone] documented as of this encounter Visit Diagnoses Diagnosis Ankylosing spondylitis (HCC-CMS)- Primary Ankylosing spondylitis documented in this encounter Discontinued Medications Medication Sig Discontinue Reason Start Date End Da te indomethacin (INDOCIN) 25 mg capsuleIndications:Ankylo sing spondylitis (HCC-CMS) Take 1 Cap by mouth daily. Reorder 03/23/2011 06/17/2011 documented as of this encounter Care Teams Organizational Development Director Relationship Specialty Start Date End Date Olaf Sahni MD PCP - General 09/20/08 11/05/20 documented as of this encounter
--- OUTSIDE RECORDS SUMMARY | 2023-12-02 11:25 | XMS_ITS | Encounter Summary ---
Author Organization [facility] Address [address] [place] [address] Care Team Providers Care Clinical Document Improvement Educator Name Role Phone Olaf Sahni MD Primary Care Provider U lisandraailable Reason for Visit * Reason Comments Neck Pain Back Pain Encounter Details Date Type Department Care Team (Latest Contact Info) Description 09/18/2010 10:30 EDT Office Visit [facility] Rheumatology & Immunology - [address] [address] Jaciel Abrams MD Ankylosing spondylitis [...] 01/17/2024 9:00 EST Office Visit [facility] Rheumatology & Immunology [address] [phone] Butch Blair NP [address] [place] [phone] 07/26/2024 9:00 EDT Office Visit [facility] Rheumatology & Immunology [address] [address] Riri Seymour MD [address] [place] [phone] documented as of this encounter Visit Diagnoses Diagnosis Ankylosing spondylitis ([facility])- Primary Ankylosing spondylitis documented in this encounter Care Teams Clinical Document Improvement Educator Relationship Specialty Start Date End Date Olaf Sahni MD PCP - General 09/20/08 11/05/20 documented as of this encounter
--- OUTSIDE RECORDS SUMMARY | 2023-12-02 11:25 | XMS_ITS | Encounter Summary ---
Author Organization [facility] Address [address] [place] [address] Care Team Providers Care Fire Alarm Dispatcher Name Role Phone Olaf Sahni MD Primary Care Provider U navailable Reason for Referral * Other Type (Routine) - Closed Specialty Diagnoses / Procedures Referred By Deann bermudez Referred To Contact Diagnoses Ankylosing spondylitis ([facility]) Vi Hamilton RN Referral ID Status Reason Start Date Expiration Date V isits Requested Visits Authorized [id number] Closed Other 09/14/2010 1 1 Question Answer Medication to be Prior Authorized: enbrel 50 mg sureclick Comments The purpose of this consult request is to inform the scheduling staff that a medication needs to be prior-authorized before it is prescribed and/or administered. Encounter Details Date Type Department Care Team (Late st Contact Info) Description 09/14/2010 Orders Only [facility] Rheumatology & Immunology [address] [address] Vi Hamilton, GINA Ankylosing spondylitis ([facility]) (Primary Dx) Social History Tobacco [...] Info) Description 01/17/2024 9:00 EST [facility] Visit [facility] Rheumatology & Immunology [address] [phone] Butch Blair NP 111 [facility] 5 [place] [phone] 07/26/2024 9:00 EDT [facility] Visit [facility] Rheumatology & Immunology - [address] [address] Riri Seymour MD [address] [phone] Scheduled Referrals Name Type Priority Associated Diagnoses Order Schedule AMB MEDICATION PRIOR AUTHORIZATION Outpatient Referral Routine Ankylosing spondylitis ([facility]) Ordered: 09/14/2010 documented as of this encounter Visit Diagnoses Diagnosis Ankylosing spondylitis ([facility])- Primary Ankylosing spondylitis documented in this encounter Care Teams Fire Alarm Dispatcher Relationship Specialty Start Date End Date Olaf Sahni MD PCP - General 09/20/08 11/05/20 documented as of this encounter
--- OUTSIDE RECORDS SUMMARY | 2023-12-02 11:25 | XMS_ITS | Encounter Summary ---
Author Organization [facility] Address [address] [place] [address] Care Team Providers Care Director Surgical Name Role Phone Olaf Sahni MD Primary Care Provider Gustavo fryaildino Reason for Visit * Reason Onset Date Comments Other 04/03/2010 IS WAITING TO HE AR ABOUT WHEN HE HAS BEEN SET UP FOR FOOT SURGERY AND WOULD LIKE TO HAVE IT DONE WHERE HE LIVES IN [facility] Encounter Details Date Type Department Care Team (Late st Contact Info) Description 04/03/2010 Telephone [facility] Rheumatology & Immunology - [facility] [address] [place] [address] Jaciel Clancy MD Other (IS WAITING TO HEAR ABOUT WHEN HE HAS BEEN SET UP FOR FOOT SURGERY AND WOULD LIKE TO HAVE IT DONE WHERE HE LIVES IN [facility]) Social History Tobacco Use Types Packs/Day Years [...] that we would refer to orthopedics at [facility]. I don't know the surgeons in [facility] or podiatrists there so he would need [...] Info) Description 01/17/2024 9:00 EST Office Visit [facility] Rheumatology & Immunology [address] [phone] Butch Blair NP [address] [place] [phone] 07/26/2024 9:00 EDT Office Visit [facility] Rheumatology & Immunology [address] [phone] Riri Seymour MD [address] [place] [phone] documented as of this encounter Visit Diagnoses Not on filedocumented in this encounter Care Teams Director Surgical Relationship Specialty Start Date End Date Olaf Sahni MD PCP - General 09/20/08 11/05/20 documented as of this encounter
--- OUTSIDE RECORDS SUMMARY | 2023-12-02 11:25 | XMS_ITS | Encounter Summary ---
Author Organization [facility] Address [address] [place] [address] Care Team Providers Care Engineering Consultant Name Role Phone Unavailable Primary Care Provider Unavailabl e Encounter Details Date Type Department Care Team (Latest Contact Info) Description 04/10/2001 13:18 EST Hospital Encounter [facility] - [address] [address] Jaciel Calncy MD Discharge Disposition: Auto Discharge Social History [...] Visit [facility] Rheumatology & Immunology [address] 280211 Butch Blair NP [address] [place] [phone] 07/26/2024 9:00 EDT Office Visit [facility] Rheumatology & Immunology [address] [phone] Riri Seymour MD [address] [place] [phone] documented as of this encounter Procedures Procedure [...]
--- OUTSIDE RECORDS SUMMARY | 2023-12-02 11:25 | XMS_ITS | Encounter Summary ---
Author Organization [facility] Address [address] [place] [address] Care Team Providers Care Aquarium Specialist Name Role Phone Olaf Sahni MD Primary Care Provider U navailable Reason for Visit * Reason Onset Date Comments Medications Refill 01/14/2011 Encounter Details Date Type Department Care Team (Late st Contact Info) Description 01/14/2011 Refill [facility] Rheumatology & Immunology [address] [phone] Jaciel Clancy MD Medications Refill Social History [...] Info) Description 01/17/2024 9:00 EST Office Visit [facility] Rheumatology & Immunology [address] [phone] Butch Blair NP 111 [facility], [facility] 5 [place] [phone] 07/26/2024 9:00 EDT Office Visit [facility] Rheumatology & Immunology - [facility] [address] [place], [place] [address] Riri Seymour MD 111 [facility], Level [address] [place] [phone] documented as of this encounter Visit Diagnoses Diagnosis Ankylosing spondylitis (HCC-CMS)- Primary Ankylosing spondylitis documented in this encounter Discontinued Medications Medication Sig Discontinue Reason Start Date End Da te indomethacin (INDOCIN) 25 mg capsuleIndications:Ankylo sing spondylitis (HCC-CMS) Take 1 Cap by mouth daily. Reorder 08/10/2010 01/14/2011 documented as of this encounter Care Teams Aquarium Specialist Relationship Specialty Start Date End Date Olaf Sahni MD PCP - General 09/20/08 11/05/20 documented as of this encounter
--- OUTSIDE RECORDS SUMMARY | 2023-12-02 11:25 | XMS_ITS | Encounter Summary ---
Author Organization 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[employer], although he is not fully employed at [...] Jaciel Clancy MD - SARA Job ID: [id number] Doc ID: [id number] cc: Olaf Sahni MD documented in this encounter Plan of Treatment Upcoming Encounters Date Type Department Care Team (Late st Contact Info) Description 01/17/2024 9:00 EST Office Visit [facility] Rheumatology & Immunology - [address] [phone] Butch Blair, SHEELA [address] [place] [address], Level 5 [place] [phone] 07/26/2024 9:00 EDT Office Visit [facility] Rheumatology & Immunology - [address] [phone] Riri Semyour MD [address] [place] [address], Level 5 [place] [phone] documented as of this encounter Visit Diagnoses Not on filedocumented in this encounter Care Teams Er Rn Relationship Specialty Start Date End Date Olaf Sahni MD PCP - General 09/20/08 11/05/20 documented as of this encounter
--- OUTSIDE RECORDS SUMMARY | 2023-12-02 11:25 | XMS_ITS | Encounter Summary ---
Author Organization [facility] Address [address] [place] [address] Care Team Providers Care Mussel Opener Name Role Phone Olaf Sahni MD Primary Care Provider U lisandraailable Reason for Visit * Reason Onset Date Comments Medications Refill 09/28/2010 Encounter Details Date Type Department Care Team (Late st Contact Info) Description 09/28/2010 Refill [facility] Rheumatology & Immunology [address] [phone] Jaciel Clancy MD Medications Refill Social History [...] Visit [facility] Rheumatology & Immunology [address] 574581 Butch Blair NP [address] [place] [phone] 07/26/2024 9:00 EDT Office Visit [facility] Rheumatology Immunology [address] [phone] Riri Seymour MD [address] [place] [phone] documented as of this encounter Visit Diagnoses Diagnosis Ankylosing spondylitis ([facility]) Ankylosing spondylitis documented in this encounter Care Teams Mussel Opener Relationship Specialty Start Date End Date Olaf Sahni MD PCP - General 09/20/08 11/05/20 documented as of this encounter
--- OUTSIDE RECORDS SUMMARY | 2023-12-02 11:25 | XMS_ITS | Encounter Summary ---
Author Organization [facility] Address [address] [place] [address] Care Team Providers Care Boring Inspector Name Role Phone Unavailable Primary Care Provider Unavailabl e Encounter Details Date Type Department Care Team (Late st Contact Info) Description 09/19/2007 9:17 EDT Hospital Encounter [address] [address] Jaciel Clancy MD Social History Tobacco Use [...] Description 01/17/2024 9:00 EST Office Visit [facility] Rheumatology & Immunology [address] 265421 Butch Blair NP [address] [place] [address], [facility] 5 [place] [phone] 07/26/2024 9:00 EDT Office Visit [facility] Rheumatology & Immunology [address] [address] Riri Seymour MD [address] [facility], [address] [place] [phone] documented as of this encounter Visit Diagnoses Not on filedocumented in this encounter
--- OUTSIDE RECORDS SUMMARY | 2023-12-02 11:25 | XMS_ITS | Encounter Summary ---
Author Organization [facility] Address [address] [place] [address] Care Team Providers Care Mask Inspector Name Role Phone Unavailable Primary Care Provider Unavailabl e Encounter Details Date Type Department Care Team (Late st Contact Info) Description 08/17/2005 10:31 EDT Hospital Encounter [address] [address] Jaciel Clancy MD Social History Tobacco Use [...] 01/17/2024 9:00 EST Office Visit [facility] Rheumatology & Immunology [address] 783231 Butch Blair NP [address] [place] [address], [facility] 5 [place] [phone] 07/26/2024 9:00 EDT Office Visit [facility] Rheumatology & Immunology [address] [address] Riri Seymour MD 111 [facility], Level [address] [place] [phone] documented as of this encounter Visit Diagnoses Not on filedocumented in this encounter
--- OUTSIDE RECORDS SUMMARY | 2023-12-02 11:25 | XMS_ITS | Encounter Summary ---
Author Organization [facility] Address [address] [place] [address] Care Team Providers Care Home Service Demonstrator Name Role Phone Unavailable Primary Care Provider Unavailabl e Encounter Details Date Type Department Care Team (Late st Contact Info) Description 03/26/2008 9:04 EST Hospital Encounter [address] 192451 Jaciel Clancy MD Social History Tobacco Use [...] Info) Description 01/17/2024 9:00 EST Office Visit [facility] Rheumatology & Immunology [address] [phone] Butch Blair NP [address] [place] [address], [facility] 5 [place] [phone] 07/26/2024 9:00 EDT Office Visit [facility] Rheumatology & Immunology [address] [phone] Riri Seymour MD [address] [place] [address], Level [address] [place] [phone] documented as of this encounter Visit Diagnoses Not on filedocumented in this encounter
--- OUTSIDE RECORDS SUMMARY | 2023-12-02 11:25 | XMS_ITS | Encounter Summary ---
Author Organization [facility] Address [address] [place] [address] Care Team Providers Care Pv Design And Installation Technician Name Role Phone Olaf Sahni MD Primary Care Provider U lisandraaildino Reason for Visit * Reason Comments Back Pain Ankylosing spondylit is Encounter Details Date Type Department Care Team (Latest Contact Info) Description 03/24/2010 8:30 EST Office Visit [facility] Rheumatology & Immunology - [address] [phone] Jaciel Clancy MD Ankylosing spondylitis ([facility]) (Primary Dx) Social History Tobacco Use [...] indomethacin (INDOCIN) 25 mg capsuleIndications:Ankylos ing spondylitis ([facility]) Take 1 Cap by mouth daily. 30 Cap 5 03/24/2010 08/10/2010 documented in this encounter Progress Notes * Jaciel Clancy MD - 03/24/2010 0836 EST Subjective: [...] Cancer Father prostate ??? Heart Disease Father [place] at 54 ??? Heart Disease Brother at [...] Info) Description 01/17/2024 9:00 EST Office Visit [facility] Rheumatology & Immunology [address] [phone] Butch Blair NP [address] [place] [phone] 07/26/2024 9:00 EDT Office Visit [facility] Rheumatology & Immunology [address] [address] Riri Seymour MD [address] [place] [phone] documented as of this encounter Visit Diagnoses Diagnosis Ankylosing spondylitis ([facility])- Primary Ankylosing spondylitis documented in this encounter Discontinued Medications Medication Sig Discontinue Reason Start Date End Da te indomethacin (INDOCIN) 25 mg capsuleIndications:Ankylo sing spondylitis ([facility]) Take 1 Cap by mouth daily. Reorder 02/10/2010 03/24/2010 documented as of this encounter Historical Medications * This list may reflect changes made after this encounter. Medication Sig Dispensed Refills Start Date End Date hydrocodone-acetaminophen (NORCO) 5-325 mg per tablet Take 1 Tablet by mouth every 4 hours as needed. added in this encounter Care Teams Pv Design And Installation Technician Relationship Specialty Start Date End Date Olaf Sahni MD PCP - General 09/20/08 11/05/20 documented as of this encounter
--- OUTSIDE RECORDS SUMMARY | 2023-12-02 11:25 | XMS_ITS | Encounter Summary ---
Author Organization [facility] Address [address] [place] [address] Care Team Providers Care Haul Cane Brakeman Name Role Phone Olaf Sahni MD Primary Care Provider Gustavo aldana Encounter Details Date Type Department Care Team (Late st Contact Info) Description 05/31/2003 Results Only [facility] Rheumatology & Immunology [address] [phone] Jaciel Clancy MD Social History Tobacco Use [...] Info) Description 01/17/2024 9:00 EST Office Visit [facility] Rheumatology & Immunology [address] [phone] Butch Blair NP [address] [place] [phone] 07/26/2024 9:00 EDT Office Visit [facility] Rheumatology & Immunology [address] [address] Riri Seymour MD [address] [place] [phone] documented as of this encounter Procedures [...] & PF4 ORD ERABLES Performing Organization Address City/[facility] Co de Phone Number [facility] [address] [place] [address] * (ABNORMAL) DMARD PROFILE (05/31/2003 16:06 EST) [...] BLOOD GA S ORDERABLES Performing Organization Address City/[facility] Co de Phone Number [facility] [address] [place] [address] * (ABNORMAL) C-REACTIVE PROTEIN (05/31/2003 16:06 EST) C-Reactive Protein 14.2(H) <1.0 mg/dl [facility] 05/31/2003 16:0 6 EST 05/31/2003 16:11 EST Jaciel Clancy MD CHEMISTRY & BLOOD GA S ORDERABLES [facility] [address] [place] [address] * (ABNORMAL) HEMAGRAM AND DIFFERENTIAL (05/31/2003 16:06 EST) WBC 8.37 4.0 - 10.4 K/cmm [facility] RBC 4.32(L) 4.36 - 5.78 M/cmm [facility] Hemoglobin 10.1(L) 13.8 - 17.3 gm/dl [facility] HCT 31.5(L) 39.5 - 50.2 % [facility] MCV 73(L) 81 - 95 fl [facility] MCH 23.4(L) 27.6 - 33.0 pg [facility] MCHC 32.0(L) 32.8 - 36.4 gm/dl [facility] PLT 494(H) 141 - 320 K/cmm [facility] RDW-CV 18.6(H) 11.8 - 14.1 % [...] DNA PROBE ORDERABLES [facility] [address] [place] [address] documented in this encounter Visit Diagnoses Not on filedocumented in this encounter Care Teams Haul Cane Brakeman Relationship Specialty Start Date End Date Olaf Sahni MD PCP - General 09/20/08 11/05/20 documented as of this encounter
--- OUTSIDE RECORDS SUMMARY | 2023-12-02 11:25 | XMS_ITS | Encounter Summary ---
Author Organization [facility] Address [address] [place] [address] Care Team Providers Care Engineer And Geologist Name Role Phone Olaf Sahni MD Primary Care Provider U navailable Reason for Visit * Reason Onset Date Comments Medications Refill 02/10/2010 Encounter Details Date Type Department Care Team (Late st Contact Info) Description 02/10/2010 Refill [facility] Rheumatology & Immunology [address] [phone] Jaciel Clancy MD Medications Refill Social History [...] Description 01/17/2024 9:00 EST Office Visit [facility] Rheumatology & Immunology [address] [phone] Butch Blair NP 111 [facility], [facility] 5 [place] [phone] 07/26/2024 9:00 EDT Office Visit [facility] Rheumatology & Immunology - [facility] [address] [place], [place] [address] Riri Seymour MD 111 [facility], Level [address] [place] [phone] documented as of this encounter Visit Diagnoses Diagnosis Ankylosing spondylitis ([facility])- Primary Ankylosing spondylitis documented in this encounter Discontinued Medications Medication Sig Discontinue Reason Start Date End Da te indomethacin (INDOCIN) 25 mg capsuleIndications:Ankylo sing spondylitis ([facility]) Take 1 Cap by mouth daily. Reorder 09/23/2009 02/10/2010 documented as of this encounter Care Teams Engineer And Geologist Relationship Specialty Start Date End Date Olaf Sahni MD PCP - General 09/20/08 11/05/20 documented as of this encounter
--- OUTSIDE RECORDS SUMMARY | 2023-12-02 11:25 | XMS_ITS | Encounter Summary ---
Author Organization [facility] Address [address] [place] [address] Care Team Providers Care Marklogic Developer Name Role Phone Unavailable Primary Care Provider Unavailabl e Encounter Details Date Type Department Care Team (Latest Contact Info) Description 04/28/1999 9:59 EST - 04/28/1999 11:59 EST Hospital Encounter [facility] - Other [address] [place] [phone] Jaciel Clancy MD Unknown, ProviderMD Discharge Disposition: [...] Visit [facility] Rheumatology & Immunology [address] [phone] Butch Blair NP [address] [place] [phone] 07/26/2024 9:00 EDT Office Visit [facility] Rheumatology & Immunology [address] [phone] Riri Seymour MD [address] [place] [phone] documented as of this encounter Procedures Procedure [...] & PF4 ORD ERABLES Performing Organization Address City/[facility] Co de Phone Number [facility] [address] [place] [address] * DMARD PROFILE (04/28/1999 12:13 EST) Total [...] BLOOD GA S ORDERABLES Performing Organization Address [facility] Co de Phone Number [facility] [address] [place] [address] * (ABNORMAL) C-REACTIVE PROTEIN (04/28/1999 12:13 EST) C-Reactive Protein 7.3(H) <1.0 mg/dl [facility] 04/28/1999 12:1 3 EST 04/28/1999 12:15 EST Jaciel Clancy MD CHEMISTRY & BLOOD GA S ORDERABLES [facility] [address] [place] [address] * (ABNORMAL) HEMAGRAM & DIFF (04/28/1999 12:13 EST) Pathologist [facility] WBC 7.58 4.0 - 10.4 K/cmm [facility] RBC 3.82(L) 4.36 - 5.78 M/cmm [facility] Hemoglobin 10.1(L) 13.8 - 17.3 gm/dl [facility] HCT 31.0(L) 39.5 - 50.2 % [facility] MCV 81 81 - 95 fl [facility] MCH 26.4(L) 27.6 - 33.0 pg [facility] MCHC 32.5(L) 32.8 - 36.4 gm/dl [...] S Q LOAD [facility] [address] [place] [address] documented in this encounter Visit Diagnoses Not on filedocumented in this encounter
--- OUTSIDE RECORDS SUMMARY | 2023-12-02 11:25 | XMS_ITS | Encounter Summary ---
Author Organization [facility] Address [address] [place] [address] Care Team Providers Care Universal Grinder Set Up Operator Name Role Phone Unavailable Primary Care Provider Unavailabl e Encounter Details Date Type Department Care Team (Latest Contact Info) Description 04/17/2002 12:13 EST Hospital Encounter [facility] - Other [address] [place] [address] Jaciel Clancy MD Unknown, Provider, Discharge Disposition: [...] Info) Description 01/17/2024 9:00 EST Office Visit [facility] Rheumatology & Immunology [address] [phone] Butch Blair NP [address] [place] [phone] 07/26/2024 9:00 EDT Office Visit [facility] Rheumatology & Immunology [address] [phone] Riri Seymour MD [address] [place] [phone] documented as of this encounter Procedures Procedure Name Priority Date/Time Associated Diagnosis Comments HEMAGRAM & DIFF Routine 04/17/2002 12:09 EST DMARD PROFILE Routine 04/17/2002 12:09 EST SED RATE Routine 04/17/2002 12:09 EST C REACTIVE PROTEIN Routine 04/17/2002 12 :09 EST documented in this encounter Results * (ABNORMAL) SED. RATE:WESTERGREN (04/17/2002 12:09 EST) [facility] Sed. Rate Westergren >100(H) 0 - 15 mm/hr [facility] 04/17/2002 12:0 9 EST 04/17/2002 12:17 EST Jaciel Clancy MD HEMATOLOGY & PF4 ORD ERABLES Performing Organization Address [facility] Co de Phone Number [facility] [address] [place] [address] * DMARD PROFILE (04/17/2002 12:09 EST) [facility] Total Alkaline Phosphatase 119 38 - 126 [...] BLOOD GA S ORDERABLES Performing Organization Address [facility] Co de Phone Number [facility] [address] [place] [address] * (ABNORMAL) C-REACTIVE PROTEIN (04/17/2002 12:09 EST) [facility] C-Reactive Protein 7.2(H) <1.0 mg/dl [facility] 04/17/2002 12:0 9 EST 04/17/2002 12:17 EST Jaciel Clancy MD CHEMISTRY & BLOOD GA S ORDERABLES [facility] [address] [place] [address] * (ABNORMAL) HEMAGRAM & DIFF (04/17/2002 12:09 EST) Pathologist [facility] WBC 8.95 4.0 - 10.4 K/cmm [facility] [...] S Q LOAD [facility] [address] [place] [address] documented in this encounter Visit Diagnoses Not on filedocumented in this encounter
--- OUTSIDE RECORDS SUMMARY | 2023-12-02 11:25 | XMS_ITS | Encounter Summary ---
Author Organization [facility] Address [address] [place] [address] Care Team Providers Care Hoop Maker Machine Name Role Phone Olaf Sahni MD Primary Care Provider U navailable Reason for Visit * Reason Onset Date Comments Medications Refill 09/14/2010 Encounter Details Date Type Department Care Team (Late st Contact Info) Description 09/14/2010 Refill [facility] Rheumatology & Immunology [address] [phone] Jaciel Clancy MD Medications Refill Social History [...] (0.98 mL) injectionIndications:Anky losing spondylitis ([facility]) Inject 1 mL into the skin every 7 days. 8 Syringe 5 09/14/2010 10/06/2010 documented in this encounter Plan of Treatment Upcoming Encounters Date Type Department Care Team (Late st Contact Info) Description 01/17/2024 9:00 EST Office Visit [facility] Rheumatology & Immunology [address] [phone] Butch Blair, INSTRUMENT REPAIR SUPERVISOR 111 [facility], Level 5 [place] [phone] 07/26/2024 9:00 EDT Office Visit [facility] Rheumatology & Immunology - [facility] [address] [place] [address] Riri Seymour MD [address] [place] [address], Level [address] [place] [phone] documented as of this encounter Visit Diagnoses Diagnosis Ankylosing spondylitis ([facility])- Primary Ankylosing spondylitis documented in this encounter Discontinued Medications Medication Sig Discontinue Reason Start Date End Da te etanercept (ENBREL) 50 mg/mL (0.98 mL) injectionIndications:Anky losing spondylitis ([facility]) Inject 1 mL into the skin every 7 days. Reorder 10/22/2009 09/14/2010 documented as of this encounter Care Teams Hoop Maker Machine Relationship Specialty Start Date End Date Olaf Sahni MD PCP - General 09/20/08 11/05/20 documented as of this encounter
--- OUTSIDE RECORDS SUMMARY | 2023-12-02 11:25 | XMS_ITS | Encounter Summary ---
Author Organization [facility] Address [address] [place] [address] Care Team Providers Care A P Manager Name Role Phone Unavailable Primary Care Provider Unavailabl e Encounter Details Date Type Department Care Team (Late st Contact Info) Description 03/23/2005 9:49 EST Hospital Encounter [address] [phone] Jaciel Clancy MD Social History Tobacco Use [...] [facility] Immunology [address] 6780[address] Butch Blair NP [address] [place] [address], [facility] 5 [place] [phone] 07/26/2024 9:00 EDT Office Visit [facility] Rheumatology & Immunology [address] [phone] Riri Seymour MD 111 [facility], Level [address] [place] [phone] documented as of this encounter Procedures Procedure [...] PF4 ORD ERABLES [facility] [address] [place] [address] * HEMAGRAM (03/23/2005 11:16 EST) WBC 5.73 [...] PF4 ORD ERABLES [facility] [address] [place] [address] documented in this encounter Visit Diagnoses Not on filedocumented in this encounter
--- OUTSIDE RECORDS SUMMARY | 2023-12-02 11:25 | XMS_ITS | Encounter Summary ---
Author Organization [facility] Address [address] [place] [address] Care Team Providers Care Dyeing Machine Tender Name Role Phone Olaf Sahni MD Primary Care Provider U navailable Reason for Visit * Reason Comments Joint Pain Ankylosing spondylit is. Pt states things aren't too bad Encounter Details Date Type Department Care Team (Latest Contact Info) Description 09/23/2009 9:15 EDT Office Visit [facility] Rheumatology & Immunology - [address] [address] Jaciel Clancy MD Ankylosing spondylitis ([facility]) (Primary Dx) Social History Tobacco Use Types [...] indomethacin (INDOCIN) 25 mg capsuleIndications:Ankylos ing spondylitis ([facility]) Take 1 Cap by mouth daily. 30 [...] cough (chronic, has been seen by a smoke eater in the past. ). Negativefor shortness of [...] [facility] [address] [address] Butch Blair NP [address] [place] [address], Level [address] [place] [phone] 07/26/2024 9:00 EDT Office Visit [facility] Rheumatology & Immunology - [facility] [address] [place], [place] [phone] Riri Seymour MD [address] [phone] documented as of this encounter [...] 10/22/2009 added in this encounter Care Teams Dyeing Machine Tender Relationship Specialty Start Date End Date Olaf Sahni MD PCP - General 09/20/08 11/05/20 documented as of this encounter
--- OUTSIDE RECORDS SUMMARY | 2023-12-02 11:25 | XMS_ITS | Encounter Summary ---
Author Organization [facility] Address [address] [place] [address] Care Team Providers Care Epoxy Specialist Name Role Phone Olaf Sahni MD Primary Care Provider Gustavo aldana Encounter Details Date Type Department Care Team (Late st Contact Info) Description 03/15/2006 Before PRISM Converted Visit (Maple) [facility] - Maple conversion [address] [place] [address] Jaciel Clancy MD Social History Tobacco Use [...] Clancy MD P - ds Job ID: [id number] Document ID: [id number] cc: Olaf Sahni MD documented in this encounter Plan of Treatment Upcoming Encounters Date Type Department Care Team (Late st Contact Info) Description 01/17/2024 9:00 EST Office Visit [facility] Rheumatology & Immunology [address] [address] Butch Blair NP [address] [place] [phone] 07/26/2024 9:00 EDT Office Visit [facility] Rheumatology & Immunology [address] [address] Riri Seymour MD [address] [place] [phone] documented as of this encounter Visit Diagnoses Not on filedocumented in this encounter Care Teams Epoxy Specialist Relationship Specialty Start Date End Date Olaf Sahni MD PCP - General 09/20/08 11/05/20 documented as of this encounter
--- OUTSIDE RECORDS SUMMARY | 2023-12-02 11:25 | XMS_ITS | Encounter Summary ---
Author Organization [facility] Address [address] [place] [address] Care Team Providers Care Roping Machine Tender Name Role Phone Olaf Sahni MD Primary Care Provider U navailable Reason for Visit * Reason Onset Date Comments Medications Refill 10/06/2010 Encounter Details Date Type Department Care Team (Late st Contact Info) Description 10/06/2010 Refill [facility] Rheumatology & Immunology [address] [phone] Jaciel Clancy MD Medications Refill Social History [...] Description 01/17/2024 9:00 EST Office Visit [facility] Rheumatology Immunology [address] [phone] Butch Blair, HANDLE BENDER [address] [facility], Level [address] [place] [phone] 07/26/2024 9:00 EDT Office Visit [facility] Rheumatology & Immunology - [facility] [address] [place] [address] Riri Seymour MD [address] [place] [address], [address] [place] [phone] documented as of this encounter Visit Diagnoses Diagnosis Ankylosing spondylitis ([facility])- Primary Ankylosing spondylitis documented in this encounter Discontinued Medications Medication Sig Discontinue Reason Start Date End Da te etanercept (ENBREL) 50 mg/mL (0.98 mL) injectionIndications:Anky losing spondylitis ([facility]) Inject 1 mL into the skin every 7 days. Reorder 09/14/2010 10/06/2010 documented as of this encounter Care Teams Roping Machine Tender Relationship Specialty Start Date End Date Olaf Sahni MD PCP - General 09/20/08 11/05/20 documented as of this encounter
--- OUTSIDE RECORDS SUMMARY | 2023-12-02 11:25 | XMS_ITS | Encounter Summary ---
Author Organization [facility] Address [address] [place] [address] Care Team Providers Care Shell Maker Lockstitch Name Role Phone Olaf Sahni MD Primary Care Provider U navailable Reason for Visit * Reason Onset Date Comments Medications Refill 09/18/2010 Pharmacy need s new script & prior auth for Enbrel. Fax is [phone] Encounter Details Date Type Department Care Team (Late st Contact Info) Description 09/18/2010 Refill [facility] Rheumatology & Immunology [address] [phone] Jaciel Clancy MD Medications Refill (Pharmacy needs new script & prior auth for Enbrel. Fax is [phone]) Social History Tobacco Use Types Packs/Day Years [...] Visit [facility] Rheumatology & Immunology [address] 040471 Butch Blair NP 111 [facility], Level [address] [place] [phone] 07/26/2024 9:00 EDT Office Visit [facility] Rheumatology & Immunology - [address] [address] Riri Seymour MD [address] [place] [address], [address] [place] [phone] documented as of this encounter Visit Diagnoses Diagnosis Ankylosing spondylitis ([facility])- Primary Ankylosing spondylitis documented in this encounter Care Teams Shell Maker Lockstitch Relationship Specialty Start Date End Date Olaf Sahni MD PCP - General 09/20/08 11/05/20 documented as of this encounter
--- OUTSIDE RECORDS SUMMARY | 2023-12-02 11:25 | XMS_ITS | Encounter Summary ---
Author Organization [facility] Address [address] [place] [address] Care Team Providers Care Esthetic Dermatologist Name Role Phone Unavailable Primary Care Provider Unavailabl e Encounter Details Date Type Department Care Team (Latest Contact Info) Description 08/31/1999 12:31 EDT Hospital Encounter [facility] - Other [address] [place] [phone] Jaciel Clancy MD Unknown, ProviderMD Discharge Disposition: [...] Description 01/17/2024 9:00 EST Office Visit [facility] Rheumatology & Immunology [address] [phone] Butch Blair NP [address] [place] [phone] 07/26/2024 9:00 EDT Office Visit [facility] Rheumatology & Immunology [address] [phone] Riri Seymour MD [address] [place] [phone] documented as of this encounter Procedures Procedure [...] GA S ORDERABLES [facility] [address] [place] [address] * (ABNORMAL) HEMAGRAM & DIFF (08/31/1999 11:21 [...] S Q LOAD [facility] [address] [place] [address] documented in this encounter Visit Diagnoses Not on filedocumented in this encounter
--- OUTSIDE RECORDS SUMMARY | 2023-12-02 11:25 | XMS_ITS | Encounter Summary ---
Author Organization [facility] Address [address] [place] [address] Care Team Providers Care Master Plumber Name Role Phone Olaf Sahni MD Primary Care Provider U navailable Reason for Visit * Reason Onset Date Comments Medications Refill 08/10/2010 Encounter Details Date Type Department Care Team (Late st Contact Info) Description 08/10/2010 Refill [facility] Rheumatology & Immunology [address] [phone] Jaciel Clancy MD Medications Refill Social History [...] 01/17/2024 9:00 EST Office Visit [facility] Rheumatology & Immunology [address] [phone] Butch Blair NP 111 [facility] 5 [place] [phone] 07/26/2024 9:00 EDT Office Visit [facility] Rheumatology & Immunology - [facility] [address] [place], [place] [phone] Riri Seymour MD 111 [facility], [address] [place] [phone] documented as of this encounter Visit Diagnoses Diagnosis Ankylosing spondylitis (HCC-CMS)- Primary Ankylosing spondylitis documented in this encounter Discontinued Medications Medication Sig Discontinue Reason Start Date End Da te indomethacin (INDOCIN) 25 mg capsuleIndications:Ankylo sing spondylitis (HCC-CMS) Take 1 Cap by mouth daily. Reorder 03/24/2010 08/10/2010 documented as of this encounter Care Teams Master Plumber Relationship Specialty Start Date End Date Olaf Sahni MD PCP - General 09/20/08 11/05/20 documented as of this encounter
--- OUTSIDE RECORDS SUMMARY | 2023-12-02 11:25 | XMS_ITS | Encounter Summary ---
Author Organization [facility] Address [address] [place] [address] Care Team Providers Care Branner Machine Tender Name Role Phone Olaf Sahni MD Primary Care Provider U navailable Reason for Referral * Radiology Services (Routine/Next Available) - Closed Specialty Diagnoses / Procedures Referred By Deann bermudez Referred To Contact Diagnoses Patellofemoral arthritis Procedures KNEES 3 VIEWS Jaciel Abrams MD Referral ID Status Reason Start Date Expiration Date Visits Re quested Visits Authorized [id number] Closed 09/16/2011 1 1 Reason for Visit * Reason Comments Joint Pain both knees Encounter Details Date Type Department Care Team (Latest Contact Info) Description 09/16/2011 11:20 EDT Office Visit [facility] Rheumatology & [place] [address] Jaciel Abrams MD Patellofemoral arthritis (Primary Dx); Ankylosing spondylitis ([facility]) Social History Tobacco Use Types Packs/Day [...] with sunrise view. Will be done in [facility] to be available if he needs [...] 9:00 EST Office Visit [facility] Rheumatology & Immunology [address] [phone] Butch Blair NP [address] [place] [address], Level [address] [place] [phone] 07/26/2024 9:00 EDT Office Visit [facility] Rheumatology & Immunology - [address] [address] Riri Seymour MD [address] [place] [address], Level [address] [place] [phone] Scheduled Orders Name Type Priority [...] documented as of this encounter Care Teams Branner Machine Tender Relationship Specialty Start Date End Date Olaf Sahni MD PCP - General 09/20/08 11/05/20 documented as of this encounter
--- OUTSIDE RECORDS SUMMARY | 2023-12-02 11:25 | XMS_ITS | Encounter Summary ---
Author Organization [facility] Address [address] [place] [address] Care Team Providers Care Patternmaker Plaster And Plastic Name Role Phone Unavailable Primary Care Provider Unavailabl e Encounter Details Date Type Department Care Team (Latest Contact Info) Description 10/17/2001 15:03 EDT Hospital Encounter [facility] - [address] [address] Jaciel Clancy MD Discharge Disposition: Auto Discharge [...] [facility] Rheumatology & Immunology [address] [phone] Butch Blair NP [address] [place] [phone] 07/26/2024 9:00 EDT Office Visit [facility] Rheumatology & Immunology [address] [phone] Riri Seymour MD [address] [place] [phone] documented as of this encounter Visit Diagnoses Not on filedocumented in this encounter
--- OUTSIDE RECORDS SUMMARY | 2023-12-02 11:25 | XMS_ITS | Encounter Summary ---
Author Organization [facility] Address [address] [place] [address] Care Team Providers Care Medication Tech Name Role Phone Olaf Sahni MD Primary Care Provider Gustavo aldana Encounter Details Date Type Department Care Team (Late st Contact Info) Description 09/19/2007 Before PRISM Converted Visit (Maple) [facility] - Maple conversion [address] [place] [address] Jaciel Clancy MD Social History Tobacco Use [...] Jaciel Clancy MD - SARA Job ID: [id number] Doc ID: [id number] cc: Olaf Sahni MD * Jaciel Clancy MD - 12/06/2008 0935 EDT [facility] [address] September 19, 2007 Referring Provider: Dr. Clancy Date of Examination: 09/19/2007 Reason for Study: Drug induced Osteoporosis Densitometer: Brevado Quality of Study: Spine L1-L4: Adequate for [...] Director [facility] 09/21/2007 07:22 AM [employer] Document ID: [id number] documented in this encounter Plan of Treatment Upcoming Encounters Date Type Department Care Team (Late st Contact Info) Description 01/17/2024 9:00 EST Office Visit [facility] Rheumatology & Immunology [address] [phone] Butch Blair NP [address] [place] [phone] 07/26/2024 9:00 EDT Office Visit [facility] Rheumatology & Immunology [address] [phone] Riri Seymour MD [address] [place] [phone] documented as of this encounter Visit Diagnoses Not on filedocumented in this encounter Care Teams Medication Tech Relationship Specialty Start Date End Date Olaf Sahni MD PCP - General 09/20/08 11/05/20 documented as of this encounter
--- OUTSIDE RECORDS SUMMARY | 2023-12-02 11:25 | XMS_ITS | Encounter Summary ---
Author Organization [facility] Address [address] [place] [address] Care Team Providers Care Manager Demand Name Role Phone Olaf Sahni MD Primary Care Provider Gustavo aldana Encounter Details Date Type Department Care Team (Latest Contact Info) Description 03/25/2009 8:45 EST - 03/25/2009 9:32 EST Hospital Encounter [facility] Rheumatology & Immunology [address] [phone] Jaciel Clancy MD Discharge Disposition: Home or Self Care Social History Tobacco Use Types Packs/Day Years Used Date Smoking Tobacco: Never Assessed Sex and Gender Information Value Date Recorded Sex Assigned at Not on file Gender Identity Male 11/06/2020 8:02 EDT Sexual Orientation Not on file documented as of this encounter Discharge Disposition Disposition Code Departure Means Destination Home or Self Correction documented in this encounter Progress Notes * Inpatient, Physician - 04/21/2009 1231 EST documented in this encounter Miscellaneous Notes * Scanned Note-Null - Inpatient, Physician - 04/21/2009 1230 EST documented in this encounter Plan of Treatment Upcoming Encounters Date Type Department Care Team (Late st Contact Info) Description 01/17/2024 9:00 EST Office Visit [facility] Rheumatology & Immunology [address] 987131 Butch Blair NP [address] [place] [address], [facility] 5 [place] [phone] 07/26/2024 9:00 EDT Office Visit [facility] Rheumatology & Immunology - [facility] [address] [place] [address] Riri Seymour MD 111 [facility], Level [address] [place] [phone] documented as of this encounter [...] & DNA PROBE ORDERABLES Performing Organization Address [facility] Co de Phone Number [facility] [address] [place] [address] * DMARD PROFILE (03/25/2009 9:52 EST) Alkaline [...] BLOOD GA S ORDERABLES Performing Organization Address [facility] Co de Phone Number [facility] [address] [place] [address] documented in this encounter Visit Diagnoses Not on filedocumented in this encounter Care Teams Manager Demand Relationship Specialty Start Date End Date Olaf Sahni MD PCP - General 09/20/08 11/05/20 documented as of this encounter
--- OUTSIDE RECORDS SUMMARY | 2023-12-02 11:25 | XMS_ITS | Encounter Summary ---
Author Organization [facility] Address [address] [place] [address] Care Team Providers Care Grinder Set Up Operator External Name Role Phone Unavailable Primary Care Provider Unavailabl e Encounter Details Date Type Department Care Team (Late st Contact Info) Description 09/15/2004 11:03 EDT Hospital Encounter [facility] - Other [address] [place] [phone] Jaciel Clancy MD Social History Tobacco Use [...] [facility] Rheumatology & Immunology [address] 635591 Butch Blair NP 111 [facility], Level 5 [place] [phone] 07/26/2024 9:00 EDT Office Visit [facility] Rheumatology & Immunology [address] [phone] Riri Seymour MD [address] [place] [address], [address] [place] [phone] documented as of this encounter Visit Diagnoses Not on filedocumented in this encounter
--- OUTSIDE RECORDS SUMMARY | 2023-12-02 11:25 | XMS_ITS | Encounter Summary ---
Author Organization [facility] Address [address] [place] [address] Care Team Providers Care Skin Specialist Name Role Phone Olaf Sahni MD Primary Care Provider U navailable Reason for Visit * Reason Comments Follow-up 6 month follow-up fo r Anylosing Spondylitits Encounter Details Date Type Department Care Team (Latest Contact Info) Description 03/23/2011 9:15 EST Office Visit [facility] Rheumatology & Immunology - [address] [address] Jaciel Abrams MD Ankylosing spondylitis ([facility]) (Primary Dx) Discharge Disposition: Auto Discharge [...] Cancer Father prostate ??? Heart Disease Father [place] at 54 ??? Heart Disease Brother at [...] Office Visit [facility] Rheumatology & Immunology [address] [phone] Butch Blair NP [address] [place] [phone] 07/26/2024 9:00 EDT Office Visit [facility] Rheumatology & Immunology [address] [phone] Riri Seymour MD [address] [place] [phone] documented as of this encounter Results * DMARD PROFILE (03/23/2011 10:13 EST) Pathologist [facility] Total Alkaline Phosphatase 101 38 - 126 [...] BLOOD GA S ORDERABLES Performing Organization Address City/State/[facility] Co de Phone Number [facility] [address] [place] [address] * HEMAGRAM AND DIFFERENTIAL (03/23/2011 10:13 EST) Pathologist [facility] WBC 5.54 4.0 - 10.4 K/cmm [facility] [...] & DNA PROBE ORDERABLES Performing Organization Address City/State/[facility] Co de Phone Number [facility] [address] [place] [address] documented in this encounter Visit Diagnoses Diagnosis Ankylosing spondylitis (HCC-CMS)- Primary Ankylosing spondylitis documented in this encounter Discontinued Medications Medication Sig Discontinue Reason Start Date End Da te etanercept (ENBREL) 50 mg/mL (0.98 mL) injectionIndications:Anky losing spondylitis ([facility]) Inject 1 mL into the skin once a week. Reorder 10/08/2010 03/23/2011 indomethacin (INDOCIN) 25 mg capsuleIndications:Ankylo sing spondylitis (HCC-CMS) Take 1 Cap by mouth daily. Reorder 01/14/2011 03/23/2011 documented as of this encounter Care Teams Skin Specialist Relationship Specialty Start Date End Date Olaf Sahni MD PCP - General 09/20/08 11/05/20 documented as of this encounter
--- OUTSIDE RECORDS SUMMARY | 2023-12-02 11:25 | XMS_ITS | Encounter Summary ---
Author Organization [facility] Address [address] [place] [address] Care Team Providers Care Brewmaster Name Role Phone Olaf Sahni MD Primary Care Provider U lisandraailable Reason for Visit * Reason Onset Date Comments Medications Refill 09/23/2010 Encounter Details Date Type Department Care Team (Late st Contact Info) Description 09/23/2010 Refill [facility] Rheumatology & Immunology [address] [phone] Jaciel Clancy MD Medications Refill Social History [...] Description 01/17/2024 9:00 EST Office Visit [facility] Rheumatology & Immunology [address] 549251 Butch Blair NP [address] [place] [phone] 07/26/2024 9:00 EDT Office Visit [facility] Rheumatology Immunology [address] [phone] Riri Seymour MD [address] [place] [phone] documented as of this encounter Visit Diagnoses Diagnosis Ankylosing spondylitis ([facility])- Primary Ankylosing spondylitis documented in this encounter Care Teams Brewmaster Relationship Specialty Start Date End Date Olaf Sahni MD PCP - General 09/20/08 11/05/20 documented as of this encounter
--- OUTSIDE RECORDS SUMMARY | 2023-12-02 11:25 | XMS_ITS | Encounter Summary ---
Author Organization [facility] Address [address] [place] [address] Care Team Providers Care Metal Melter Name Role Phone Unavailable Primary Care Provider Unavailabl e Encounter Details Date Type Department Care Team (Late st Contact Info) Description 03/21/2007 8:49 EST Hospital Encounter [address] [phone] Jaciel Clancy MD Social History Tobacco Use [...] [facility] Rheumatology & Immunology [address] 108371 Butch Blair NP [address] [place] [address], Level [address] [place] [phone] 07/26/2024 9:00 EDT Office Visit [facility] Rheumatology & Immunology [address] [phone] Riri Seymour MD [address] [place] [address], [address] [place] [phone] documented as of this encounter Visit Diagnoses Not on filedocumented in this encounter
--- OUTSIDE RECORDS SUMMARY | 2023-12-02 11:25 | XMS_ITS | Encounter Summary ---
Author Organization [facility] Address [address] [place] [address] Care Team Providers Care Pantograph Watcher Name Role Phone Unavailable Primary Care Provider Unavailabl e Encounter Details Date Type Department Care Team (Latest Contact Info) Description 06/06/2000 13:13 EDT Hospital Encounter [facility] - Other [address] [place] [phone] Jaciel Clancy MD Unknown, ProviderMD Discharge Disposition: [...] [facility] Immunology [address] [phone] Butch Blair NP [address] [place] [phone] 07/26/2024 9:00 EDT Office Visit [facility] Rheumatology & Immunology [address] [phone] Riri Seymour MD [address] [place] [phone] documented as of this encounter Procedures Procedure Name Priority Date/Time Associated Diagnosis Comments HEMAGRAM & DIFF Routine 06/06/2000 11:56 EDT DMARD PROFILE Routine 06/06/2000 11:56 EDT C REACTIVE PROTEIN Routine 06/06/2000 11 :56 EDT documented in this encounter Results * (ABNORMAL) DMARD PROFILE (06/06/2000 11:56 EDT) Pathologist [facility] Total Alkaline Phosphatase 152(H) 38 - 126 [...] S ORDERABLES Performing Organization Address City/[facility] Co de Phone Number [facility] [address] [place] [address] * (ABNORMAL) C-REACTIVE PROTEIN (06/06/2000 11:56 EDT) Pathologist [facility] C-Reactive Protein 4.1(H) <1.0 mg/dl [facility] 06/06/2000 11:5 6 EDT 06/06/2000 12:01 EDT Jaciel Clancy MD CHEMISTRY & BLOOD GA S ORDERABLES Performing Organization Address [facility] Co de Phone Number [facility] [address] [place] [address] * (ABNORMAL) HEMAGRAM & DIFF (06/06/2000 11:56 EDT) Pathologist [facility] WBC 7.92 4.0 - 10.4 K/cmm ETI[facility]NE [...] ABS Basophils 0.03 0.01 - 0.11 K/cmm [facility] Type of Diff: Automated [facility] 06/06/2000 11:5 6 EDT 06/06/2000 12:01 EDT Jaciel Clancy MD HISTORICAL LAB FOR S Q LOAD [facility] [address] [place] [address] documented in this encounter Visit Diagnoses Not on filedocumented in this encounter
--- OUTSIDE RECORDS SUMMARY | 2023-12-02 11:25 | XMS_ITS | Encounter Summary ---
Author Organization [facility] Address [address] [place] [address] Care Team Providers Care Sr Vice President Name Role Phone Olaf Sahni MD Primary Care Provider U lisandraailable Reason for Visit * Reason Onset Date Comments Medications Refill 10/22/2009 Encounter Details Date Type Department Care Team (Late st Contact Info) Description 10/22/2009 Refill [facility] Rheumatology & Immunology - [address] [phone] Jaciel Clancy MD Medications Refill Social History [...] 50 mg/mL (0.98 mL) injectionIndications:Anky losing spondylitis ([facility]) Inject 1 mL into the skin every 7 days. 4 Syringe 9 10/22/2009 09/14/2010 documented in this encounter Miscellaneous Notes * Telephone Encounter - Chuckie Jeffries - 10/22/2009 1129 EDT ENBREL 50MG NEEDS TO BE CALLED INTO BIOSCRIPT [phone] documented in this encounter Plan of Treatment Upcoming Encounters Date Type Department Care Team (Late st Contact Info) Description 01/17/2024 9:00 EST Office Visit [facility] Rheumatology & Immunology [address] [phone] Butch Blair NP [address] [place] [phone] 07/26/2024 9:00 EDT Office Visit [facility] Rheumatology & Immunology [address] [phone] Riri Seymour MD [address] [place] [phone] documented as of this encounter Visit Diagnoses Diagnosis Ankylosing spondylitis ([facility])- Primary Ankylosing spondylitis documented in this encounter Discontinued Medications Medication Sig Discontinue Reason Start Date End Da te etanercept (ENBREL) 50 mg/mL (0.98 mL) injectionIndications:Anky losing spondylitis ([facility]) Inject 50 mg into the skin every 7 days. Reorder 10/22/2009 documented as of this encounter Care Teams Sr Vice President Relationship Specialty Start Date End Date Olaf Sahni MD PCP - General 09/20/08 11/05/20 documented as of this encounter
--- OUTSIDE RECORDS SUMMARY | 2023-12-02 11:25 | XMS_ITS | Encounter Summary ---
Author Organization [facility] Address [address] [place] [address] Care Team Providers Care Video Poker Floorman Name Role Phone Olaf Sahni MD Primary Care Provider Gustavo aldana Encounter Details Date Type Department Care Team (Late st Contact Info) Description 03/23/2011 Phlebotomy Only [address] [address] Lift Manager, Outpatient Ankylosing spondylitis ([facility]) Social History Tobacco Use Types Packs/Day Years [...] Description 01/17/2024 9:00 EST Office Visit [facility] Rheumatology & Immunology [address] [id number] Butch Blair NP [address] [place] [address] [phone] 07/26/2024 9:00 EDT Office Visit [facility] Rheumatology & Immunology [address] [id number] Riri Seymour MD [address] [place] [address] [phone] documented as of this encounter Procedures Procedure Name Priority Date/Time Associated Diagnosis Comments DMARD PROFILE Routine 03/23/2011 10:13 EST Ankylosing spondylitis ([facility]) COMPLETE BLOOD COUNT AND DIFFERENTIAL Routine 03/23/2011 10:13 EST Ankylosing spondylitis ([facility]) documented in this encounter Results * DMARD [...] GA S ORDERABLES Performing Organization Address City/State/[facility] Co de Phone Number [facility] [address] [place] [address] * HEMAGRAM AND DIFFERENTIAL (03/23/2011 10:13 EST) WBC 5.54 4.0 - 10.4 K/cmm [facility] RBC 4.55 4.36 - 5.78 M/cmm [facility] Hemoglobin 14.2 13.8 - 17.3 gm/dl [facility] HCT 40.7 39.5 - 50.2 % [facility] MCV 89 81 - 95 [...] DNA PROBE ORDERABLES Performing Organization Address City/State/[facility] Co de Phone Number [facility] [address] [place] [address] documented in this encounter Visit Diagnoses Diagnosis Ankylosing spondylitis ([facility]) Ankylosing spondylitis documented in this encounter Care Teams Video Poker Floorman Relationship Specialty Start Date End Date Olaf Sahni MD PCP - General 09/20/08 11/05/20 documented as of this encounter
[2023-12-02 11:34] LABS: ESR 1 mm/hr (0-20)
[2023-12-02 11:35] LABS: Abs Immature Grans 0.01 10^3/uL (0.0-0.06); Absolute Basophil Count 0.02 10^3/uL (0.0-0.2); Absolute Lymphocyte Count 1.61 10^3/uL (1.2-3.4); Absolute Monocyte Count 0.39 10^3/uL (0.1-0.8); Absolute Neutrophil Count 2.35 10^3/uL (1.2-6.7); Basophils % 0.4 %; Eosinophils % 2.2 %; HCT 44.4 % (40.0-50.0); HGB 15.4 g/dL (13.5-17.5); Immature Grans % 0.2 %; Lymphocytes % 35.9 %; MCH 32.8 pg (27.0-33.0); MCHC 34.7 % (32.0-36.0); MCV 95 fL (80-95); MPV 10.6 fL (8.0-11.0); Monocytes % 8.7 %; Neutrophils % 52.6 %; Platelet Count 155 10^3/uL (130-400); RDW-SD 42.4 fL; WBC 4.48 10^3/uL (4.4-10.8)
[2023-12-02 12:22] LABS: ALT 88 U/L (16-63); AST 43 U/L (15-37); Alkaline Phosphatase 129 U/L (46-116); Anion Gap 6.2 mmol/L (3-11); BUN 17 mg/dL (7-18); Bilirubin, Total 0.46 mg/dL (0.2-1.0); C-Reactive Protein < 0.50 mg/dL (<or=0.5); CO2 30.8 mmol/L (21.0-32.0); CREATININE 1.4 mg/dL (0.70-1.30); Calcium 8.9 mg/dL (8.5-10.1); Chloride 105 mmol/L (98-107); Estimated GFR 56.83 (mL/min/1.73m2); Glucose 105 mg/dL (74-106); Potassium 4.1 mmol/L (3.5-5.1); Sodium 142 mmol/L (136-145); Total Protein 7.5 g/dL (6.4-8.2)
== END 2023-12-02 11:20 | disposition home or self-care (01) ==
LOC: LBO 11:20
PROVIDERS: PCP Nurse Practitioner; Visit Provider Internal Medicine
DX: M45.9 Ankylosing spondylitis of unspecified sites in spine (principal)
CPT/HCPCS: 36415; 80053; 85652; 85025; 86140

== ENCOUNTER 2024-03-26 15:06 | Outpatient (CLI) | payer MEDICARE, SELFPAY ==
[2024-03-26 14:19] LABS: ESR 3 mm/hr (0-20)
[2024-03-26 14:20] LABS: Abs Immature Grans 0.01 10^3/uL (0.0-0.06); Absolute Basophil Count 0.03 10^3/uL (0.0-0.2); Absolute Eosinophil Count 0.12 10^3/uL (0.0-0.7); Absolute Lymphocyte Count 2.28 10^3/uL (1.2-3.4); Absolute Neutrophil Count 2.73 10^3/uL (1.2-6.7); Basophils % 0.5 %; Eosinophils % 2.1 %; HCT 48.5 % (40.0-50.0); HGB 16.8 g/dL (13.5-17.5); Immature Grans % 0.2 %; Lymphocytes % 40.2 %; MCH 31.4 pg (27.0-33.0); MCHC 34.6 % (32.0-36.0); MCV 91 fL (80-95); MPV 10.6 fL (8.0-11.0); Monocytes % 8.8 %; Neutrophils % 48.2 %; Platelet Count 172 10^3/uL (130-400); RBC 5.35 10^6/uL (4.36-5.78); RDW 12.1 % (11.8-14.1); RDW-SD 40.1 fL; WBC 5.67 10^3/uL (4.4-10.8)
[2024-03-26 15:02] LABS: ALT 83 U/L (16-63); AST 37 U/L (15-37); Alkaline Phosphatase 150 U/L (46-116); Anion Gap 6.6 mmol/L (3-11); BUN 14 mg/dL (7-18); Bilirubin, Total 0.33 mg/dL (0.2-1.0); CO2 32.4 mmol/L (21.0-32.0); CREATININE 1.3 mg/dL (0.70-1.30); Calcium 8.8 mg/dL (8.5-10.1); Chloride 102 mmol/L (98-107); Estimated GFR 62.11 (mL/min/1.73m2); Glucose 138 mg/dL (74-106); Potassium 3.7 mmol/L (3.5-5.1); Sodium 141 mmol/L (136-145); Total Protein 7.6 g/dL (6.4-8.2)
[2024-03-26 15:06] LABS: C-Reactive Protein < 0.50 mg/dL (<or=0.5)
== END 2024-03-26 15:07 | disposition home or self-care (01) ==
LOC: LBO 15:07
PROVIDERS: PCP Nurse Practitioner; Visit Provider Internal Medicine
DX: M45.9 Ankylosing spondylitis of unspecified sites in spine (principal); Z79.899 Other long term (current) drug therapy
CPT/HCPCS: 36415; 80053; 85652; 85025; 86140

== ENCOUNTER 2024-07-16 02:49 | Outpatient (CLI) | payer MEDICARE, MEDICAID, SELFPAY ==
--- NOTE | 2024-07-16 10:45 | DI.RAD_ITS ---
Exam(s) XR SACROILIAC JOINTS EXAM: XR SACROILIAC JOINTS CLINICAL HISTORY: ANKYLOSING SPONDYLITIS,KNOWN FUSION,? ACTIVE SACROILITIS,m45.7. TECHNIQUE: 2D digital imaging was performed. Three images were obtained. COMPARISON: CR XR lumbar spine complete from 01/18/[address] ABDOMEN PELVIS W from 07/07/2018 CR XR THORACIC SPINE COMPLETE from 12/20/2018 FINDINGS: Bones: No fracture is present. 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 No erosions o r sclerosis is seen. Alignment is satisfactory. SI Joint:The visualized hips are unremarkable. The symphysis pubis is grossly unremarkable. Soft Tissue: Vascular calcifications are seen. IMPRESSION: Complete fusion of the sacroiliac joints bilaterally. DATA REPOSITORY: RADIATION DOSE DELIVERED:
== END 2024-07-16 03:09 ==
LOC: DI 02:49
PROVIDERS: PCP Nurse Practitioner; Visit Provider Student in an Organized Health Care Education/Training Program
DX: M43.28 Fusion of spine, sacral and sacrococcygeal region (principal)
CPT/HCPCS: 72202

== ENCOUNTER 2024-07-16 12:44 | Outpatient (CLI) | payer MEDICARE, MEDICAID, SELFPAY ==
[2024-07-16 10:34] LABS: Abs Immature Grans 0.01 10^3/uL (0.0-0.06); Absolute Basophil Count 0.03 10^3/uL (0.0-0.2); Absolute Eosinophil Count 0.11 10^3/uL (0.0-0.7); Absolute Lymphocyte Count 1.87 10^3/uL (1.2-3.4); Absolute Monocyte Count 0.42 10^3/uL (0.1-0.8); Absolute Neutrophil Count 2.26 10^3/uL (1.2-6.7); Basophils % 0.6 %; ESR 1 mm/hr (0-20); Eosinophils % 2.3 %; HCT 43.7 % (40.0-50.0); HGB 15.7 g/dL (13.5-17.5); Immature Grans % 0.2 %; Lymphocytes % 39.8 %; MCH 32.2 pg (27.0-33.0); MCHC 35.9 % (32.0-36.0); MCV 90 fL (80-95); MPV 10.7 fL (8.0-11.0); Monocytes % 8.9 %; Neutrophils % 48.2 %; Platelet Count 163 10^3/uL (130-400); RBC 4.88 10^6/uL (4.36-5.78); RDW 12.2 % (11.8-14.1); RDW-SD 39.9 fL
[2024-07-16 10:53] LABS: ALT 47 U/L (16-63); AST 29 U/L (15-37); Albumin 4.4 g/dL (3.4-5.0); Alkaline Phosphatase 131 U/L (46-116); Anion Gap 5.5 mmol/L (3-11); BUN 20 mg/dL (7-18); Bilirubin, Total 0.8 mg/dL (0.2-1.0); CO2 30.5 mmol/L (21.0-32.0); CREATININE 1.3 mg/dL (0.70-1.30); Calcium 9.4 mg/dL (8.5-10.1); Chloride 105 mmol/L (98-107); Estimated GFR 62.11 (mL/min/1.73m2); Glucose 116 mg/dL (74-106); Potassium 3.7 mmol/L (3.5-5.1); Sodium 141 mmol/L (136-145); Total Protein 7.5 g/dL (6.4-8.2)
[2024-07-16 10:54] LABS: C-Reactive Protein < 0.50 mg/dL (<or=0.5)
== END 2024-07-16 12:45 | disposition home or self-care (01) ==
LOC: LBO 12:46
PROVIDERS: PCP Nurse Practitioner; Visit Provider Student in an Organized Health Care Education/Training Program
DX: M45.7 Ankylosing spondylitis of lumbosacral region (principal); M85.89 Other specified disorders of bone density and structure, multiple sites; G47.33 Obstructive sleep apnea (adult) (pediatric); M79.7 Fibromyalgia; M54.2 Cervicalgia
CPT/HCPCS: 36415; 80053; 85652; 72202; 85025; 86140

== ENCOUNTER 2024-07-23 02:52 | Outpatient (CLI) | payer MEDICARE, MEDICAID, SELFPAY ==
--- NOTE | 2024-07-23 | DI.DEXA_ITS ---
Exam(s) XR DEXA BONE DENSITY W/WO SHERMAN EXAM: XR DEXA BONE DENSITY W/WO SHERMAN CLINICAL HISTORY: OSTEOPOROSIS, AGE RELATED,M81.0,INTERMEDIATE USE HIGH RISK MEDICATION,Z79.899 TECHNIQUE: Hologic Horizon C densitometer analysis of left hip, lumbar spine and left forearm. Lat eral survey image of the thoracic and lumbar spine. COMPARISON: CR XR DEXA BONE DENSITY W/WO SHERMAN from 10/08/2020 FINDINGS: Lateral view of the thoracic and lumbar spine shows no evidence of compression fractures. Bone mineral density measurements of the lumbar spine correspond to a total T-score of -1.3, in the osteopenic range. 2.8 percent decrease from prior. Bone mineral density measurements of the left hip correspond to a total T-score of -1.5. This is a 3.7 percent increase from prior. The femoral neck T-score is negative 2.3, in the osteopenic range. . Theleft forearm bone mineral density measurements correspond to a T-score of the distal 3rd of -1.9, in the osteopenic range. Not significantly changed from prior. IMPRESSION: Osteopenia of the spine, hip and forearm.
== END 2024-07-23 03:12 ==
LOC: DI 02:53
PROVIDERS: PCP Nurse Practitioner; Visit Provider Student in an Organized Health Care Education/Training Program
DX: M81.0 Age-related osteoporosis without current pathological fracture (principal); Z79.899 Other long term (current) drug therapy
CPT/HCPCS: 77080

== ENCOUNTER 2024-08-20 00:11 | Outpatient (CLI) | payer MEDICARE, MEDICAID, SELFPAY ==
--- NOTE | 2024-08-20 | DI.MRI_ITS ---
Exam(s) MR PELVIS WO EXAM: MR PELVIS WO CLINICAL HISTORY: Ankylosing spondylitis of Lubosacral region M45.7 Lower back pain TECHNIQUE: Multiplanar multisequence MRI of Pelvis was performed COMPARISON: CR XR SACROILIAC JOINTS from 07/16/2024 FINDINGS: Bones: There is no fracture or contusion pattern. No bone marrow edema is seen. There is fusion of the sacroiliac joints bilaterally. Or there is normal signal in the bone marrow. Musculotendinous structures: Musculotendinous structures demonstrate no abnormality. Intrapelvic structures demonstrate no significant abnormality. IMPRESSION: Fusion of the sacroiliac joints bilaterally which can be seen with an inflammatory arthritis such as ankylosing spondylitis. DATA REPOSITORY:
== END 2024-08-20 00:31 ==
LOC: DI 00:11
PROVIDERS: PCP Nurse Practitioner; Visit Provider Student in an Organized Health Care Education/Training Program
DX: M45.7 Ankylosing spondylitis of lumbosacral region (principal)
CPT/HCPCS: 72195